=== PATIENT | female | born 1990 | race Caucasian/White ===

== ENCOUNTER 2018-05-09 13:55 | Inpatient (IN) | payer MEDICAID, SELFPAY ==
[2018-05-09 09:05] VITALS: BMI 30.4
[2018-05-09] MEDS: 0.9% Saline Lock 10 ML Syringe IV ×4 (11:12→16:50)
[2018-05-09] MEDS: Ondansetron 4 MG/2 ML Vial IM (11:13)
[2018-05-09] MEDS: Lactated Ringers 1,000 ML 50 ML IV ×4 (14:02→19:48)
[2018-05-09 14:29] LABS: Hemoglobin 11.6 g/dl (12.0-15.0); Mean Corp Hgb Conc 33.1 g/gl (32-36); Mean Corpuscular Hgb 29.9 pg (27.0-32.0); Mean Corpuscular Volume 90.2 fL (81-99); Mean Platelet Vol. 10.7 fl (6.2-12.0); Platelet Count 166 K/mm3 (150-450); RBC Distribution Width CV 13.8 % (11.6-14.6); RBC Distribution Width SD 44.4 fl (35.1-43.9); Red Blood Count 3.88 M/mm3 (4.2-5.4); White Blood Count 13.8 K/mm3 (4.4-11.0)
[2018-05-09] MEDS: Nalbuphine 10 MG/ML Ampul IV (14:30)
[2018-05-09 14:31] LABS: Scan Indicated on CBC? Y/N NO
[2018-05-09] MEDS: fentaNYL-bupivacaine (epidural) 100 ML BAG EPIDURAL ×2 (15:22→19:48)
--- NOTE | 2018-05-09 16:19 | PCM.HP.OB ---
History Date of Admission: 05/09/18 Final DIDIER: 05/15/18 Final DIDIER Source: US <20 weeks Gestational age: 39 Weeks and 1 Days History of this : This is a 27 year-old, @ 39.1 weeks presented to L&D c/o contractions- was making cervical change after observation- admitted for labor. Allergies No Known Allergies Allergy (Verified 05/09/18 09:06) Home Medications: Home Medications Vits [Prenatabs FA] 1 tablet PO DAILY 05/09/18 Smoking Status: Never smoker Alcohol: None Number of Fetus(es): 1 Heart Tracin mod celsa, + accels, no decels. TOCO Analysis: q2-4 History Past Pregnancies: Past Pregnancies Delivery Date Name GA/Weeks Outcome Route Weight Gender Labor Length Anesthesia Delivery Location Provider FOB Review of Systems Constitutional: Denies: Anorexia HEENT: Denies: Difficulty Hearing, Head Aches Gastrointestinal: Reports: Abdominal Pain - from contractions Physical Exam General: Alert, Oriented x3 Abdomen: Soft, Non Tender, Gravid Neurological: Cranial nerves II-XII grossly intact [employer]ER: Normal external genitalia Estimated gestational size: Appropriate for gestational size Presentation: Cephalic Cervix Dilation (cm): 5 Station: -2 Effacement (%): 90 Assessment/Plan This is a 27 year-old, @ 39.2 wks in active labor 1) admit to L&D 2) Monitor FHR/TOCO 3) anticipate 4) AROM performed- THICK MEC, IUPC and IFM placed 5) PN labs- GBS neg, GCT99, Rub imm, Syphilis neg, O+, HIV non reactive, HEP B neg, 6) epidural in place 7) pitocin if indicated
--- NOTE | 2018-05-09 16:24 | HP.PCM_ITS ---
History Date of Admission: 05/09/18 Final DIDIER: 05/15/18 Final DIDIER Source: US <20 weeks Gestational age: 39 Weeks and 1 Days History of this : This is a 27 year-old, @ 39.1 weeks presented to L&D c/o contractions- was making cervical change after observation- admitted for labor. Allergies No Known Allergies Allergy (Verified 05/09/18 09:06) Home Medications: Home Medications Vits [Prenatabs FA] 1 tablet PO DAILY 05/09/18 Smoking Status: Never smoker Alcohol: None Number of Fetus(es): 1 Heart Tracin mod celsa, + accels, no decels. 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
--- NOTE | 2018-05-09 16:41 | PCM.PN.BLA ---
Progress Note tachycardia noted- patient is tachycardiac s/p ephedrine x 2 doses after epidural for hypotension. will continue to monitor- fluid bolus given. Patient is afebrile.
[2018-05-09] MEDS: Oxytocin 30 units/NS 500 ml 30 UNITS/500 ML IV.SOLN IV (17:17)
--- NOTE | 2018-05-09 20:19 | PCM.PN.BLA ---
Progress Note pt seen at bedside, VE: 7-/-1, Febrile 100.7, will give Tylenol 1gram PO now. Continue to monitor. FHR 150s Mod celsa, +accels, no decels. Contractions q2min. Plan to continue pitocin. Anticipate
[2018-05-09] MEDS: Mag Hydrox/Al Hydrox/Simeth 30 ML UDC PO (20:28)
[2018-05-09] MEDS: Acetaminophen 500 MG Tablet 1000 MG PO (20:28)
[2018-05-10] MEDS: fentaNYL-bupivacaine (epidural) 100 ML BAG EPIDURAL (00:01)
--- NOTE | 2018-05-10 00:21 | NURSING ---
after secondary bag of ampicillin infused, this RN noted the vial of ampicillin was not mixed in the 100ml of normal saline. Gent now infusing. Ampicillin will infuse next.
[2018-05-10] MEDS: Mag Hydrox/Al Hydrox/Simeth 30 ML UDC PO (00:52)
[2018-05-10] MEDS: Lactated Ringers 1,000 ML 50 ML IV (01:28)
[2018-05-10] MEDS: Oxytocin 30 units/NS 500 ml 30 UNITS/500 ML IV.SOLN 334 UNITS IV (04:45)
[2018-05-10] MEDS: Methylergonovine 0.2 MG/ML Ampul IM (04:50)
--- NOTE | 2018-05-10 04:55 | PCM.OB.VAG ---
Vaginal Delivery Maternal Presentation: Active Labor Amniotic Membrane Rupture Type: Artificial Amniotic Fluid Description: Thick meconium Final DIDIER: 05/15/18 Gestational age: 39 Weeks and 2 Days Date of Procedure: 05/10/18 Pre-Operative Diagnosis: spontaneous labor, term gestation Post-Operative Diagnosis: same, live female Surgery/ Procedure Performed: Spontaneous Vaginal Delivery Type of Anesthesia: None Description of Procedure: patient pushing on and off for approx 3.5hours. on my arrival vaginal tissue extremely swollen-moving head well with pushing. Pt delivered without complications- gentle downward traction placed. infant delivered atraumatically. Delayed cord clamping performed- infant was vigorous at time of delivery- peds and respiratory present for delivery due to thick meconium. Placental cultures sent for suspected Triple I- will continue abx x 24hrs post delivery. Presentation: Vertex Placental Delivery Description: Spontaneous Placenta Disposition: Routine to Lab Cord Vessel Description: 3 Vessels Cord Entanglement: None Drain: Burger to straight drain Estimated Blood Loss: 300 Infant A gender: Female (1 minute): 8 (5 minute): 9 Episiotomy Description: None Laceration: None Medications given after delivery: IV Pitocin, IM Methergin Complications: None
--- NOTE | 2018-05-10 05:01 | PLAC_PTH ---
PATIENT: BRYCE WILSON LOC: [facility] U#:[id number] AGE/SX: 27/F ROOM: 009 RE05/09/[address]: Dr. Carla Bajwa, MDDOB: 1990 BED: 1 DIS: 05/12/2018 SPEC #: [id number] RECD: 05/10/18 06:37 STATUS: JENNI STEVE #: [id number] JANEL: 05/10/18 05:[address]: Carla Bajwa DEPT: SURGICAL PATHOLOGY RECD BY: Donnie Burgess ENTERED: 05/11/18 09:34 SP TYPE: PLACENTA OTHR DR: Dr. Ze uPgh, DO Tissues: Placenta, NOS Procedures: Surgery Specimen Level V HEADER OPERATION: Vaginal delivery PRE-OP DIAGNOSIS: Rule out chorioamnionitis TISSUE SUBMITTED: Placenta MICROSCOPIC DIAGNOSIS Placenta: Placental disc - third trimester placenta (592 gm). - Focal acute vasculitis of subamniotic blood vessels. Membranes - acute chorioamnionitis. Umbilical cord - three blood vessels and acute funisitis. KARLA:karishma 05/13/18 MICROSCOPIC DESCRIPTION Slides are reviewed. GROSS DESCRIPTION SPECIMEN: PLACENTA / CLINICAL INFORMATION: A. Weight: 3.44 kg B. Gestational Age: 39 weeks C. Sex: Female PLACENTAL WEIGHT (POST FIXATION): 592 gm PLACENTAL DIMENSIONS: 16 x 15 x 4 cm PLACENTAL SHAPE: Usual ovoid PLACENTAL WEIGHT FOR GESTATIONAL AGE: Within 10-99th percentile MEMBRANES - Present A. Insertion: Marginal B. Site of rupture from edge: 5 cm from edge of placental disc C. Color of membrane: Plaza-greenish and mucoidy, consistent with meconium staining. D. Abnormalities: None UMBILICAL CORD - Present A. Color: Plaza-welsh B. Insertion: Paracentral C. Length: 26 cm D. Diameter: 1.3 cm E. Number of vessels: Three F. Abnormalities: None PLACENTAL DISC - Present A. Color of surface: Plaza-welsh B. surface abnormalities: None C. Maternal cotyledons: Intact with minimal tears D. Attached retro placental clot: No clot E. Cut surface: Dark red and spongy F. Lesions: None G. Separate clot: Absent SECTIONS SUBMITTED: 1. Membrane roll 2. Cord, maternal end 3. Cord, end 4. Placental disc, and maternal surfaces 5. Placental disc, and maternal surfaces 6. Placental disc, and maternal surfaces SJ:karishma 05/12/18 TC:2 CPT: 70815
[2018-05-10] MEDS: Oxytocin 30 units/NS 500 ml 30 UNITS/500 ML IV.SOLN 167 UNITS IV (05:15)
[2018-05-10] MEDS: Ibuprofen 600 MG Tablet PO ×2 (07:30→13:38)
[2018-05-10 07:36] VITALS: BP 102/66; PULSE 96; RESP 16; TEMP 37.1; O2SAT 99
--- NOTE | 2018-05-10 09:22 | DCINST_ITS ---
Discharge Diet: No Restrictions Discharge Activity: Return to Normal Activity, May not drive while taking narcotic pain medications., May Shower May resume sexual activity in: 4-6 weeks Additional Activity Instructions:: Nothing in the vagina for 4-6 weeks. You may return to work/school in 6 weeks. Call your doctor if your incision/area has: Continuous Slow Oozing, Sudden Increased Bleeding, Increased Pain/ Swelling, Increased Redness, Foul Smelling Discharge Additional Instructions: If you experience any of the following, contact your healthcare provider. * Bleeding that soaks a pad every hour for 2 hours * Fever 100.4 or higher * Unrelieved incision or abdominal pain * Swelling, redness, discharge or bleeding from your incision or episiotomy site * Your incision begins to separate * Problems urinating (including inability to urinate or burning while urinating). * Visual changes * Severe headache * Flu-like symptoms * Pain or redness in one of both of your breasts * Pain, warmth, tenderness or swelling in your legs, especially the calf area * Frequent nausea and vomiting * Symptoms of depression or anxiety If you experience any of the following, call 911 or go to the nearest Emergency Room. * Chest pain * Problems breathing * Seizure activity * Partial or complete paralysis of a body part, slurred speech, weakness or drooping of the face, or a sudden inability to walk or hold your balance Allergies/Adverse Reactions: Allergies No Known Allergies Allergy (Verified 05/09/18 09:06) Medications to take at Discharge Vits [Prenatabs FA ] 1 tablet PO DAILY 05/09/18 Ibuprofen [Motrin] 600 mg PO Q6H PRN PRN #30 tablet 05/10/18 The following prescriptions were given: Ibuprofen [Motrin] 600 mg PO Q6H PRN PRN #30 tablet PRN Reason: Mild Pain (1-310) When: Call to make an appointment with your doctor in 6 weeks. If you had eleva wes Blood Pressure or 4th degree laceration you will need to be seen in 2 weeks. Primary Care Physician: Ze Pugh DO [Primary Care Provider] - Test Results: Test results from this visit will be discussed in further detail at your follow- up appointment, if applicable.
[2018-05-10] MEDS: Acetaminophen 500 MG Tablet 1000 MG PO ×2 (09:56→18:16)
[2018-05-10 11:35] VITALS: BP 100/50; PULSE 84; RESP 18; TEMP 36.4; O2SAT 97
[2018-05-10] MEDS: 0.9% Saline Lock 10 ML Syringe IV ×2 (13:46→21:37)
[2018-05-10 16:20] VITALS: BP 100/55; PULSE 70; RESP 16; TEMP 36.6; O2SAT 97
[2018-05-10 21:24] VITALS: BP 90/51; PULSE 89; RESP 16; TEMP 36.4; O2SAT 97
[2018-05-11 00:15] VITALS: BP 94/58; PULSE 78; RESP 16; TEMP 36.6; O2SAT 100
--- NOTE | 2018-05-11 00:41 | NURSING ---
This nurse spoke w/ Dr. Garcia and confirmed that pt has been afebrile since delivery and has had 24hours of antibiotics. Ok to dc omnipen and IV at this time.
[2018-05-11] MEDS: Acetaminophen 500 MG Tablet 1000 MG PO ×2 (03:36→14:18)
[2018-05-11 03:48] VITALS: BP 91/52; PULSE 75; RESP 16; TEMP 36.6; O2SAT 100
[2018-05-11] MEDS: Ibuprofen 600 MG Tablet PO ×2 (06:41→20:29)
[2018-05-11 08:25] VITALS: BP 99/47; PULSE 74; RESP 16; TEMP 36.1
[2018-05-11 14:25] VITALS: BP 95/62; PULSE 75; RESP 16; TEMP 36.6; O2SAT 97
--- NOTE | 2018-05-11 17:38 | PCM.PN.OB ---
Subjective: Ambulating and taking PO without difficulty. Voiding and passing flatus. Pain controlled. without difficulty. Denies SONI,vis chg's,CP,SOB,leg pain, increased vaginal bleeding or clots. Planning D/C home tomorrow. - Physical Exam General: Alert, Oriented x3 HEENT: Atraumatic, Normocephalic Lungs: Clear to auscultation, Normal air movement, No rhonchi, No wheeze Cardiovascular: Regular rate, Regular Rhythm, No murmurs Abdomen: Bowel Sounds Present, - - Fundus firm 2 below U Extremities: No edema Psych/Mental Status: Normal Affect, Appropriate Vital Signs Temp Pulse Resp BP Pulse Ox 97.8 F 75 16 95/62 97 05/11/18 14:25 05/11/18 14:25 05/11/18 14:25 05/11/18 14:25 05/11/18 14:25 Oxygen Delivery Method Room Air Weight: 171 lb 11.841 oz Body Mass Index (BMI) 30.4 Intake and Output for Last 24 Hours 05/09/18 05/10/18 05/11/18 23:59 23:59 23:59 Intake Total 800 / 800 1175 / 1175 Output Total 1780 / 1780 Balance 800 / 800 -605 / -605 Medical Necessity - Tobacco Use Smoking Status: Never smoker Assessment/Plan A:PPD #1 P: 1)Routine care 2)Planning D/C home tomorow 3)Pain management 4) going well
[2018-05-11 20:22] VITALS: BP 95/47; PULSE 80; RESP 16; TEMP 36.3; O2SAT 98
[2018-05-12 01:24] VITALS: BP 98/54; PULSE 97; RESP 16; TEMP 36.6; O2SAT 96
[2018-05-12] MEDS: Ibuprofen 600 MG Tablet PO (07:57)
--- NOTE | 2018-05-12 08:32 | PCM.PN.OB ---
Subjective: No complaints - Physical Exam General: Alert, Oriented x3 Abdomen: Soft, Non Tender, Non-Distended - ff mid & below umb Extremities: No Calf Tenderness Vital Signs Temp Pulse Resp BP Pulse Ox 97.8 F 97 16 98/54 L 96 05/12/18 01:24 05/12/18 01:24 05/12/18 01:24 05/12/18 01:24 05/12/18 01:24 Oxygen Delivery Method Room Air Weight: 171 lb 11.841 oz Body Mass Index (BMI) 30.4 Intake and Output for Last 24 Hours 05/10/18 05/11/18 05/12/18 23:59 23:59 23:59 Intake Total 1175 / 1175 Output Total 1780 / 1780 Balance -605 / -605 Medical Necessity - Tobacco Use Smoking Status: Never smoker Assessment/Plan PPD#2 D/c home
[2018-05-12 08:33] VITALS: BP 104/67; PULSE 68; RESP 16; TEMP 36.4; O2SAT 97
[2018-05-12] MEDS: Acetaminophen 500 MG Tablet 1000 MG PO (09:38)
[2018-05-12 09:40] VITALS: BP 104/67; PULSE 68; RESP 16; TEMP 36.4; O2SAT 97
[2018-05-13 14:05] LABS: Pathology Specimen OB SEE PATHOLOGY REPORT
--- OUTSIDE RECORDS SUMMARY | 2018-08-12 09:05 | XMS RPT_ITS ---
:1990 Author Organization OH[facility] Care Team Providers Name Role Phone HEATHER DUKES (OIL LEASE OPERATOR) Attending Unavailable HEATHER DUKES (OIL LEASE OPERATOR) Attending Unavailable MAGNO, SANG (CNM) Attending Unavailable HEATHER DUKES (OIL LEASE OPERATOR) Referring Unavailable MAGNO, SANG (CNM) Referring Unavailable CARLA ARAYA Attending Unavailable MAGNO, SANG (CNM) Referring Unavailable LIAM LITTLE Attending Unavailable CARLA ARAYA Referring Unavailable TEJADA, NGOC (CNM) Attending Unavailable MAGNO, SANG (CNM) Referring Unavailable TEJADA, NGOC (CNM) Referring Unavailable MAGNO, SANG (CNM) Attending Unavailable TEJADA, NGOC (CNM) Referring Unavailable CORNIELHEATHER BUENO (OIL LEASE OPERATOR) Attending Unavailable MAGNO, SANG (CNM) Attending Unavailable MAGNO, SANG (CNM) Referring Unavailable TEJADA, NGOC (CNM) Attending Unavailable TEJADA, NGOC (CNM) Referring Unavailable TEJADA, NGOC (CNM) Referring Unavailable SERGEY BARNETT Attending Unavailable TEJADA, NGOC (CNM) Referring Unavailable MAGNO, SANG (CNM) Attending Unavailable TEJADA, NGOC (CNM) Referring Unavailable MAGNO, SANG (CNM) Attending Unavailable MAGNO, SANG (CNM) Attending Unavailable MAGNO, SANG (CNM) Referring Unavailable LEMDAVE CARTERISSA (PT) Attending Unavailable MAGNO, SANG (CNM) Referring Unavailable MAGNO, SANG (CNM) Attending Unavailable AMGNO, SANG (CNM) Referring Unavailable MAGNO, SANG (CNM) Attending Unavailable MAGNO, SANG (CNM) Attending Unavailable MAGNO, SANG (CNM) Attending Unavailable MAGNO, SANG (CNM) Attending Unavailable MAGNO, SANG (CNM) Attending Unavailable Neyhart-Garcia, Carla Attending Unavailable Neyhart-Garcia, Carla Referring Unavailable Ze Pugh Primary Care Unavailable Neyhart-Garcia, Carla Admitting Unavailable PROBLEMS PROBLEMS DATE TYPE CONDITION / CODE ATTENDING STATUS SOURCE 02/23/2018 Active 28 weeks gestation NA Active [facility] of / [facility] Z3A.28(ICD-10) Repository 10/31/2017 Active Encounter for NA Active [facility] screening for Repository nuchal translucency / Z36.82(ICD-10) 10/31/2017 Active 12 weeks gestation MALLORY NGOC Active [facility] of / (CNM) [facility] Z3A.12(ICD-10) Repository 09/18/2017 Active Encounter for NA Active [facility] supervision of [facility] normal first Repository , first trimester / Z34.01(ICD-10) 09/18/2017 Active Unknown / NA Active [facility] UNK(Unknown) [facility] Repository PROCEDURES PROCEDURES No Procedure Records FoundRESULTS RESULTS PROGRESS Observed: 05/13/2018 Status: COMPLETED Source: [place] 10:43 AM [facility] REPOSITORY HNO ID: [id number] Author: Isadora Watson LPN Service: (none) Author Type: (none) Type: Progress Notes Filed: 05/13/2018 10:49 AM Note Text: Pt delivered via at [facility] on 05/10/[address] Garcia. See OB Outcome note. Isadora Watson LPN HOSP Observed: 05/13/2018 Status: COMPLETED Source: [place] 12:00 AM [facility] REPOSITORY Patient Update (WOOB) BRYCE RODRIGUEZ ([id number]) 1990 F Date Time Provider Department 05/13/18 CARLA ARAYA During your visit today, we recorded the following information about you: Isadora Watson ROSIE 05/13/2018 10:49 AM Signed Pt delivered via at [facility] on 05/10/[address] Garcia. See OB Outcome note. Isadora Manjinder VELEZ Allergies As of Date: 05/13/2018 (No Known Allergies) Date Reviewed: 05/04/2018 Reviewed by: Sang ([place]) Magno - Fully Assessed Prescriptions as of 05/13/2018 Sig: VITAMIN B COMPLEX CAPSULE Take 1 capsule by mouth once * VITAMIN D-3 ORAL Take by mouth. 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 Patient requested diagnostic testing [Z01.89] INVALID FOR* More... Exposure to genital herpes [Z20.2] INVALID FOR* More... Encounter for supervision of normal first pregn*INVALID FOR* Left knee pain [M25.562] INVALID FOR* Pelvic floor instability [M62.89] INVALID FOR* Encounter Status:Closed by ISADORA WATSON LPN on 05/13/18 DISCHARGE INSTRUCTION Observed: 05/10/2018 Status: F Source: [place] 9:22 AM [facility] REPOSITORY [facility] Medical Records Department [address] [place] [address] Instructions for Home/Discharge Instructions 05/10/18 0922 MR#: [id number] Acct: [id number] Name: BRYCE RODRIGUEZ TINA Rep #: [id number] : 1990 27 From: Carla Garcia MD PCP: Ze Alan DO Status: ADM IN Discharge Diet: No Restrictions Discharge Activity: Return to Normal Activity, May not drive while taking narcotic pain medications., May Shower May resume sexual activity in: 4-6 weeks Additional Activity Instructions:: Nothing in the vagina for 4-6 weeks. You may return to work/school in 6 weeks. Call your doctor if your incision/area has: Continuous Slow Oozing, Sudden Increased Bleeding, Increased Pain/ Swelling, Increased Redness, Foul Smelling Discharge Additional Instructions: If you experience any of the following, contact your healthcare provider. * Bleeding that soaks a pad every hour for 2 hours * Fever 100.4 or higher * Unrelieved incision or abdominal pain * Swelling, redness, discharge or bleeding from your incision or episiotomy site * Your incision begins to separate * Problems urinating (including inability to urinate or burning while urinating). * Visual changes * Severe headache * Flu-like symptoms * Pain or redness in one of both of your breasts * Pain, warmth, tenderness or swelling in your legs, especially the calf area * Frequent nausea and vomiting * Symptoms of depression or anxiety If you experience any of the following, call 911 or go to the nearest Emergency Room. * Chest pain * Problems breathing * Seizure activity * Partial or complete paralysis of a body part, slurred speech, weakness or drooping of the face, or a sudden inability to walk or hold your balance Allergies/Adverse Reactions: Allergies No Known Allergies Allergy (Verified 05/09/18 09:06) Medications to take at Discharge Vits [Prenatabs FA ] 1 tablet PO DAILY 05/09/18 Ibuprofen [Motrin] 600 mg PO Q6H PRN PRN #30 tablet 05/10/18 The following prescriptions were given: Ibuprofen [Motrin] 600 mg PO Q6H PRN PRN #30 tablet PRN Reason: Mild Pain (1-310) When: Call to make an appointment with your doctor in 6 weeks. If you had elevated Blood Pressure or 4th degree laceration you will need to be seen in 2 weeks. Primary Care Physician: Ze Pugh DO [Primary Care Provider] - Test Results: Test results from this visit will be discussed in further detail at your follow-up appointment, if applicable. 05/10/18921 <Electronically signed by Carla Garcia MD> Date Carla Bajwa MD CC: Ze Alan DO PLACENTA Observed: 05/10/2018 Status: F Source: [place] 5:01 AM [facility] REPOSITORY Patient: BRYCE RODRIGUEZ : 1990 () Acct Num: [id number] Phys: Aydee CASTELLANO,Carla Unit Num: [id number] Loc: WP VI732-2 Specimen: [id number] Received: 05/10/18636 Spec Type: PLACENTA TISSUES 1 TISSUES: Placenta, NOS GROSS DESCRIPTION SPECIMEN: PLACENTA / CLINICAL INFORMATION: A. Weight: 3.44 kg B. Gestational Age: 39 weeks C. Sex: Female PLACENTAL WEIGHT (POST FIXATION): 592 gm PLACENTAL DIMENSIONS: 16 x 15 x 4 cm PLACENTAL SHAPE: Usual ovoid PLACENTAL WEIGHT FOR GESTATIONAL AGE: Within 10-99th percentile MEMBRANES - Present A. Insertion: Marginal B. Site of rupture from edge: 5 cm from edge of placental disc C. Color of membrane: Plaza-greenish and mucoidy, consistent with meconium staining. D. Abnormalities: None UMBILICAL CORD - Present A. Color: Plaza-welsh B. Insertion: Paracentral C. Length: 26 cm D. Diameter: 1.3 cm E. Number of vessels: Three F. Abnormalities: None PLACENTAL DISC - Present A. Color of surface: Plaza-welsh B. surface abnormalities: None C. Maternal cotyledons: Intact with minimal tears D. Attached retro placental clot: No clot E. Cut surface: Dark red and spongy F. Lesions: None G. Separate clot: Absent SECTIONS SUBMITTED: 1. Membrane roll 2. Cord, maternal end 3. Cord, end 4. Placental disc, and maternal surfaces 5. Placental disc, and maternal surfaces 6. Placental disc, and maternal surfaces SJ:karishma 05/12/18 TC:2 CPT: 57691 HEADER OPERATION: Vaginal delivery PRE-OP DIAGNOSIS: Rule out chorioamnionitis TISSUE SUBMITTED: Placenta MICROSCOPIC DESCRIPTION Slides are reviewed. MICROSCOPIC DIAGNOSIS Placenta: Placental disc - third trimester placenta (592 gm). - Focal acute vasculitis of subamniotic blood vessels. Membranes - acute chorioamnionitis. Umbilical cord - three blood vessels and acute funisitis. SJ:karishma 05/13/18 Signed Zaid Moya MD 05/13/18 <signature on file> Performed By: #### PPLAC #### [facility] [address] [place], [address] PATHOLOGY SPECIMEN OB Collected: 05/10/2018 Status: F Source: [place] 5:01 AM [facility] REPOSITORY Order Comment: Reason for Laboratory Test Placenta for lab studies Send Specimen For (Specify): Studies @ [facility] Lab:Routine Time of Procedure: 439 Date of Procedure: 05/10/18 Reason specimen being sent to pathology (Hx/complications): r/o chorioamnionitis Type of specimen: Placenta Type of procedure performed: Other TYPE CODE TESTS RESULT OUT OF RANGE REFERENCE UNITS LAB L350.1800 SEE Normal PATH. PATHOLOGY Spec. OB REPORT Result Comment: Specimen submitted to Anatomical Pathology Department for testing. Performed By: #### L350.1800 #### [facility] [address] [place], [address] OPERATIVE REPORT Observed: 05/10/2018 Status: F Source: [place] 4:59 AM [facility] REPOSITORY [facility] Medical Records Department [address] [place] [address] Operative Report 05/10/18 0455 MR#: [id number] Acct: [id number] Name: PAMELABRYCE SINGLETON TINA Rep #: [id number] : 1990 27 From: Carla Garcia MD PCP: Ze Alan DO Status: ADM IN Y [facility] Maternal Presentation: Active Labor Amniotic Membrane Rupture Type: Artificial Amniotic Fluid Description: Thick meconium Final DIDIER: 05/15/18 Gestational age: 39 Weeks and 2 Days Date of Procedure: 05/10/18 Pre-Operative Diagnosis: spontaneous labor, term gestation Post-Operative Diagnosis: same, live female infant Surgery/ Procedure Performed: Spontaneous Vaginal Delivery Type of Anesthesia: None Description of Procedure: patient pushing on and off for approx 3.5hours. on my arrival vaginal tissue extremely swollen-moving head well with pushing. Pt delivered without complications- gentle downward traction placed. infant delivered atraumatically. Delayed cord clamping performed- infant was vigorous at time of delivery- peds and respiratory present for delivery due to thick meconium. Placental cultures sent for suspected Triple I- will continue abx x 24hrs post delivery. Presentation: Vertex Placental Delivery Description: Spontaneous Placenta Disposition: Routine to Lab Cord Vessel Description: 3 Vessels Cord Entanglement: None Drain: Burger to straight drain Estimated Blood Loss: 300 A gender: Female (1 minute): 8 (5 minute): 9 Episiotomy Description: None Laceration: None Medications given after delivery: IV Pitocin, IM Methergin Complications: None 05/10/18 0459 <Electronically signed by Carla Garcia MD> Date Carla Bajwa MD CC: Carla Bajwa MD; Ze Alan DO Signed HISTORY AND PHYSICAL Observed: 05/09/2018 Status: F Source: [place] EXAM 4:26 PM [facility] REPOSITORY [facility] Medical Records Department [address] [place] [address] History and Physical 05/09/18 1619 MR#: [id number] Acct: [id number] Name: BRYCE RODRIGUEZ Rep #: [id number] : 1990 27 From: Carla Garcia MD PCP: Ze Alan DO Status: ADM IN Location: [id number] History Date of Admission: 05/09/18 Final DIDIER: 05/15/18 Final DIDIER Source: US <20 weeks Gestational age: 39 Weeks and 1 Days History of this : This is a 27 year-old, @ 39.1 weeks presented to L AND D c/o contractions- was making cervical change after observation- admitted for labor. Allergies No Known Allergies Allergy (Verified 05/09/18 09:06) Home Medications: Home Medications Vits [Prenatabs FA] 1 tablet PO DAILY 05/09/18 Smoking Status: Never smoker Alcohol: None Number of Fetus(es): 1 Heart Tracin mod nidhi, + accels, no decels. TOCO Analysis: q2-4 History Past Pregnancies: Past Pregnancies Delivery Name GA/Weeks Outcome Route WeiInfant GeLabor LenAnesthesiDelivery Provider FOB Date ght [facility] Location Review of Systems Constitutional: Denies: Anorexia HEENT: Denies: Difficulty Hearing, Head Aches Gastrointestinal: Reports: Abdominal Pain - from contractions Physical Exam General: Alert, Oriented x3 Abdomen: Soft, Non Tender, Gravid Neurological: Cranial nerves II-XII grossly intact WINCHMAN/CRANE OPERATOR: Normal external genitalia Estimated gestational size: Appropriate for gestational size Presentation: Cephalic Cervix Dilation (cm): 5 Station: -2 Effacement (%): 90 Assessment/Plan This is a 27 year-old, @ 39.2 wks in active labor 1) admit to L AND D 2) Monitor FHR/TOCO 3) anticipate 4) AROM performed- THICK MEC, IUPC and IFM placed 5) PN labs- GBS neg, GCT99, Rub imm, Syphilis neg, O+, HIV non reactive, HEP B neg, 6) epidural in place 7) pitocin if indicated 05/09/18 6680 <Electronically signed by Carla Garcia MD> Date Carla Bajwa MD Cosigner Signature: Date (if applicable) CC: Carla Bajwa MD; Ze Alan DO Signed CBC-COMPLETE BLOOD CNT Collected: 05/09/2018 Status: F Source: [place] NO DIFF 11:48 AM [facility] REPOSITORY TYPE CODE TESTS RESULT OUT OF RANGE REFERENCE UNITS LAB L100.1000 4.4-11.0 K/mm3 High WBC 13.8 LAB L100.1200 4.2-5.4 M/mm3 Low RBC 3.88 LAB L100.1300 12.0-15.0 g/dl Low HGB 11.6 LAB L100.1400 37-47 % Low HCT 35.0 LAB L100.1500 81-99 fL Normal MCV 90.2 LAB L100.1600 27.0-32.0 pg Normal MCH 29.9 LAB L100.1700 32-36 g/gl Normal MCHC 33.1 LAB L100.1810 11.6-14.6 % Normal RDW CV 13.8 LAB L100.1820 35.1-43.9 fl High RDW SD 44.4 LAB L100.1900 150-450 K/mm3 Normal PLT 166 LAB L100.2000 6.2-12.0 fl Normal MPV 10.7 Performed By: #### L100.0500 #### [facility] [address] [place], [place], [address] TYPE AND SCREEN Collected: 05/09/2018 Status: F Source: [place] 11:48 AM [facility] REPOSITORY Order Comment: Reason for Type AND Screen/Red Cells: ROUTINE TYPE CODE TESTS RESULT OUT OF RANGE REFERENCE UNITS LAB B10.0800 O Normal BLOOD TYPE GEL POSITIVE LAB B100.4000 Normal Antibody NEGATIVE Screen Performed By: #### B101.7450 #### [facility] [address] [place], [address] PROGRESS Observed: 05/04/2018 Status: COMPLETED Source: [place] 10:25 AM [facility] REPOSITORY HNO ID: [id number] Author: Sang Kiran Service: (none) Author Type: It Support Technician Type: Progress Notes Filed: 05/04/2018 10:25 AM Note Text: CM - S: Bryce Rodriguez presents for a routine OB visit at 38w3d. She denies LOF, VB, DFM or cramping/contractions. O: See flow sheet Gen: A+O x 3, NAD Abdomen: NT x 4 quadrants, S=D Extremities: Trace non-pitting edema SVE: 180/-2, no sweep done, scant vaginal bleeding on exam A/P: 38w3d IUP. Normal . RTO 1 Weeks for follow up. Call with LOF, VB, DFM or cramping/contractions. 1. 38 weeks gestation of -[facility] teaching and Labor Precautions reviewed - URINE OB DIP B/O Sang Kiran APRN.CNM PROGRESS Observed: 04/27/2018 Status: COMPLETED Source: [place] 9:53 AM [facility] REPOSITORY HNO ID: [id number] Author: Sang Kiran Service: (none) Author Type: It Support Technician Type: Progress Notes Filed: 04/27/2018 9:54 AM Note Text: CM - S: Bryce Rodriguez presents for a routine OB visit at 37w3d. She denies LOF, VB, DFM or cramping/contractions. O: See flow sheet Gen: A+O x 3, NAD Abdomen: NT x 4 quadrants, S=D. EFW = 6# and ROSY by Selwyn'janelle Extremities: No edema in LE SVE: Deferred A/P: 37w3d IUP. Normal . RTO 1 Weeks for follow up. Call with LOF, VB, DFM or cramping/contractions. 1. 37 weeks gestation of -[facility] teaching and Labor Precautions reviewed - URINE OB DIP B/O Sang Kiran APRN.CNM GROUP B STREP PCR Collected: 04/20/2018 Status: F Source: [place] 9:30 AM [facility] REPOSITORY TYPE CODE TESTS RESULT OUT OF REFERENCE UNITS RANGE LAB GBPCRT Negative for GROUP Group B B STREP PCR Streptococcus by PCR. Performed By: #### GBPCR #### [facility] [address], [place] [address] PROGRESS Observed: 04/13/2018 Status: COMPLETED Source: [place] 10:28 AM [facility] REPOSITORY HNO ID: [id number] Author: Sang Kiran Service: (none) Author Type: It Support Technician Type: Progress Notes Filed: 04/13/2018 10:31 AM Note Text: CM - S: Bryce Rodriguez presents for a routine OB visit at 35w3d. She denies LOF, VB, DFM or cramping/contractions. Patient consents to Tdap vaccine today. O: See flow sheet Gen: A+O x 3, NAD Abdomen: NT x 4 quadrants, S=D, Vtx and ROSY by Selwyn's Extremities: No edema in LE noted A/P: 35w3d IUP. Normal . RTO 1 Weeks for follow up. Call with LOF, VB, DFM or cramping/contractions. 1. Encounter for supervision of other normal in third trimester -[facility] teaching and PTL Precautions reviewed - URINE OB DIP B/O 2. 35 weeks gestation of -Tdap given today -GBS screening n.v. - URINE OB DIP B/O Sang Kiran APRN.CNM PROGRESS Observed: 04/13/2018 Status: COMPLETED Source: [place] 10:12 AM [facility] REPOSITORY HNO ID: [id number] Author: Zakiya Mesa Ma Service: (none) Author Type: (none) Type: Progress Notes Filed: 04/13/2018 10:31 AM Note Text: Patient identified by name and date of . Bryce Rodriguez presents today for a vaccination of Tdap. Patient denies an allergy to latex: yes Patient denies a severe (life-threatening) allergy to a previous dose of Tdap, DTP, DTaP, DT or Td vaccine. Yes Patient denies history of epilepsy or neurological problems: Yes Patient is afebrile and denies being moderately or severely ill: Yes Patient denies history of Guillain-[place] Syndrome (a severe paralytic illness): Yes Tdap Adacel injection was given without incident. See immunizations for details of immunizations administered today. VIS sheet provided: Yes Provider Sang Kiran CNM was present in office at time of injection. Zakiya Mesa Ma PROGRESS Observed: 03/30/2018 Status: COMPLETED Source: [place] 9:22 AM [facility] REPOSITORY HNO ID: [id number] Author: Sang Kiran Service: (none) Author Type: It Support Technician Type: Progress Notes Filed: 03/30/2018 9:23 AM Note Text: CM - S: Bryce Rodriguez presents for a routine OB visit at 33w3d. She denies LOF, VB, DFM or cramping/contractions. She reports worsening heartburn - taking TUMS for relief and eating small frequent meals. O: See flow sheet Gen: A+O x 3, NAD Abdomen: NT x 4 quadrants, S=D, Baby ROSY and Vtx by Selwyn's Extremities: No edema in LE A/P: 33w3d IUP. Normal . RTO 2 Weeks for follow up. Call with LOF, VB, DFM or cramping/contractions. 1. 33 weeks gestation of -[facility] teaching and PTL precautions reviewed -Tdap recommended - patient unsure. Information sheet given. Patient will consider receiving Tdap at next visit - URINE OB DIP B/O Sang Kiran APRN.CNM PROGRESS Observed: 03/10/2018 Status: COMPLETED Source: [place] 10:26 AM [facility] REPOSITORY HNO ID: [id number] Author: Sang Kiran Service: (none) Author Type: It Support Technician Type: Progress Notes Filed: 03/10/2018 10:26 AM Note Text: CM - S: Bryce Rodriguez presents for a routine OB visit at 30w4d. She denies LOF, VB, DFM or cramping/contractions. Seeing chiropractor for her pelvic and hip pain, reports that she has started swimming for low-impact exercise. O: See flow sheet Gen: A+O x 3, NAD Abdomen: NT x 4 quadrants, S=D Extremities: No edema in LE A/P: 30w4d IUP. Normal . RTO 2 Weeks for follow up. Call with LOF, VB, DFM or cramping/contractions. 1. Encounter for supervision of normal first in third trimester -[facility] teaching and PTL precautions reviewed -Flu vaccine declined - URINE OB DIP B/O 2. 30 weeks gestation of -CBE and Hospital Tour discussed again - resources provided. Encourage CBE class. -Peds discussed. - URINE OB DIP B/O Sang Kiran APRN.CNM PROGRESS Observed: 03/04/2018 Status: COMPLETED Source: [place] 10:20 AM [facility] REPOSITORY HNO ID: [id number] Author: Janet (Pt) Marlo Service: (none) Author Type: Physical Therapist Type: Progress Notes Filed: 03/04/2018 12:02 PM Note Text: Episode Visit Count: 1 Therapist That Will Oversee The Plan Of Care: Janet Sellers Start of Care Date: 03/04/18 Onset Date: 01/28/18 Plan of Care Certification Date: 03/04/18 Patient Identified by Name and Date of : Yes REHABILITATION AND SPORTS THERAPY PHYSICAL THERAPY EVALUATION PLAN OF CARE: Assessment: Bryce Rodriguez presents with the diagnosis of pelvic instability and L knee pain. C/c low back/SI region, L hip and knee pain. She presents with impairments of asymmetrical pelvic alignment, decreased flexibility and core and LE weakness. She may benefit from skilled therapy services to improve core, pelvic and LE strength and stability, flexibility of hamstrings and symmetrical pelvic alignment. Prognosis: Good Good due to: good overall health status;within-session changes at evaluation;good support system/ coping skills Goals for Episode of Care: created on 03/04/18 through 05/04/18 [place] in home exercise program. Patient will decrease pain rating by 2 points to meet minimal clinical important difference for numeric pain rating scale. Patient will increase strength of core trunk and LE musculature to 4+ to 5/5 to allow for return to prior functional status, normalized gait mechanics and pelvic stability. Patient will increase flexibility of hamstrings to 60 degrees to improve ability to maintain proper posture, restore normal mechanics and decrease pain. Perform undisturbed sleep, standing, walking, stair negotiation and eventual return to exercise activities with decreased report of symptoms/pain in 4-8 weeks. Demonstrate improvement on functional score: Patient will increase his/her score on the Lower Extremity Functional Scale by at least 9 points to indicate a Minimal Clinical Important Difference. Improve postural awareness. Normal gait. Reciprocal stair negotiation. Planned Interventions, Frequency, and Duration: Current Frequency: 1x/week Duration: 8 weeks Total Number of Visits Planned: 8 Planned Treatment Interventions: Therapeutic exercise;Neuromuscular re-education;Patient/Family/Caregiver Education PLAN FOR NEXT VISIT: Assess symptom response to initial treatment and HEP. Review HEp to insure correct performance. Progress pelvic stabilization exercises (and HEP) appropriately. Patient demonstrates good understanding of plan of care and treatment. The above goals and plan of care were discussed and agreed upon by patient/family. SUBJECTIVE: Bryce Rodriguez is a 27 year old female seen today for Pt reports sudden, insidious onset of B low back, L anterior hip and L knee pain. She denies incident or injury related to onset. Pt is at 29weeks 5days gestation. She is currently being seen by chiropractor 3 x a week for adjustments. She states she is no longer exercising as she used to and has pain when ambulating (by the end of the day it will be too painful to walk) and with stairs. She notes having custom orthotics in the past (14 years ago in high school) and needs a new pair. Pt states she previously lifted weights daily, walking and biking and is not doing any of that d/t this pain. Patient Goals: to get a pair of orthotics made again. Functional Limitations: standing;walking;walking in the community;stair negotiation;sleeping (exercise) Prior Level of Function: Independent without limitations Intake Information: Prescription present Previous Treatment: Chiropractor?;Ice? Pain Score: 8/10 (worse with movement) Pain Location: Low Back/Lumbar Spine - Right;Low Back/Lumbar Spine - Left;Groin - Left;Knee - Left Description: Aching;Dull;Sharp (sharp with movements) Frequency: Continuous OBJECTIVE MEASURES WITH LEVEL OF FUNCTION: Posture / Alignment Posture: Decreased lumbar lordosis;Comments Posture comment: In standing L PSIS is inferior to R Lumbo - Pelvic Alignment: In supine L ASIS is superior to R LE Observations: L LE appears shorter in length and this corrects when transitions to long sitting. Knee Observations L Knee Palpation Tenderness: Other Comments: sub patellar LE AROM R Hip Internal Rotation: (WNL) R Hip External Rotation: (WNL) R Knee Extension: 0 Degrees R Knee Flexion: 130 Degrees L Hip Internal Rotation: (WNL, pulling low back) L Hip External Rotation: (WNL, pulling low back) L Knee Extension: 0 Degrees L Knee Flexion: 130 Degrees LE Flexibility Flexibility: Straight Leg Raise R SLR Flexibility: 45 deg, pulling in lumbar region L SLR Flexibility: 45 deg, pulling in lumbar region LE Strength Trunk Strength: 4/5 R LE Strength: 4/5 L LE Strength: 4/5 Gait Gait Observation: Pt ambulates independently with no assistive device. Steps are soemwhat guarded with decreased step length and heel strike bilaterally. Post Treatment Pain Post Treatment Pain Score: No Change Education: Education Learning Preferences: Demonstration;Explanation Barriers: None Learning/educational needs: Home exercise program;Plan of Care;Posture Education Provided: Yes, see treatment interventions for education provided Education Provided To: Patient Education Mode/Type: Demonstration;Explanation/Discussion;Literature/Printed Materials;Performance Response to Education/Teach Back: States/Identifies;Return Demonstration TREATMENT: Evaluation Therapeutic Exercise: 1: *Seated L hip flex with R hip ext isometric 5 sec holds 1 x 10 reps 2: *seated B hip adduction isometrics (pillow squeezes) 5 sec holds 1 x 10 reps 3: *seated B hip abductions 5 sec holds 1 x 10 reps 4: *seated/standing gluteal sets 5 sec holds 1 x 10 reps 5: *seated iso abs 5 sec holds 1 x 10 reps Skilled Intervention: Patient was educated in proper exercise technique and purpose for exercises. Skilled judgment was provided in selection of appropriate interventions. Provided written instruction for home exercise program to facilitate proper performance and compliance. Correct performance of therapeutic exercises was facilitated with verbal and visual cuing. Patient education as noted. Self-Alf Management: 1: Educated pt regarding effects of on the musculoskeletal system in relation to her diagnosis and evaluation findings. Pt verbalized good understanding and all questions were answered. 2: Educated pt in regards to positioning for sleep and comfort with use of pillows as needed for support. Skilled Intervention: Skilled judgment in the selection of proper modification for activity of daily living/home management based on clinical presentation, deficits, and needs. Reviewed patient specific diagnosis in relation to activities of daily living/home management. Billing: [facility]: Evaluation - Low Complexity (48149) Therapeutic Exercise (84662): 1:1 time: 25 minutes (2 units: 23-37 mins) Educ Home Mgmt (66353): 1:1 time: 15 minutes (1 unit: 8-22 mins) Total time: 55 minutes Janet Sellers PT CNTHERAPY Observed: 03/04/2018 Status: COMPLETED Source: [place] 10:15 AM [facility] REPOSITORY OT/PT/Speech Visit (PTWS) BRYCE RODRIGUEZ ([id number]) 1990 F Date Time Provider Department 03/04/18 10:15 AM JANET SELLERS (PT) PTWS Date Time Provider Department Center 03/04/2018 10:15 AM [id number] SELLERS (PT) PTWS [facility] Reason for Visit: PT Eval [747] Primary Visit Diagnosis:Left knee pain, unspecified chronicity [M25.562] Other Visit Diagnosis:Pelvic floor instability [M62.89] Allergies As of Date: 03/04/2018 (No Known Allergies) Date Reviewed: 02/23/2018 Reviewed by: Sang Lua) Magno - Fully Assessed Prescriptions as of 03/04/2018 Sig: VITAMIN D-3 ORAL Take by mouth. VIT 87-IRON CARB,ASP* Take 1 capsule by mouth once * VITAMIN B COMPLEX CAPSULE Take 1 capsule by mouth once * Progress Notes: Janet Sellers, PT 03/04/2018 12:02 PM Signed Episode Visit Count: 1 Therapist That Will Oversee The Plan Of Care: Janet Sellers Start of Care Date: 03/04/18 Onset Date: 01/28/18 Plan of Care Certification Date: 03/04/18 Patient Identified by Name and Date of : Yes [facility]ABIL[facility] SPORTS THERAPY PHYSICAL THERAPY EVALUATION PLAN OF CARE: Assessment: Bryce Rodriguez presents with the diagnosis of pelvic instability and L knee pain. C/c low back/SI region, L hip and knee pain. She presents with impairments of asymmetrical pelvic alignment, decreased flexibility and core and LE weakness. She may benefit from skilled therapy services to improve core, pelvic and LE strength and stability, flexibility of hamstrings and symmetrical pelvic alignment. Prognosis: Good Good due to: good overall health status;within-session changes at evaluation;good support system/ coping skills Goals for Episode of Care: created on 03/04/18 through 05/04/18 [place] in home exercise program. Patient will decrease pain rating by 2 points to meet minimal clinical important difference for numeric pain rating scale. Patient will increase strength of core trunk and LE musculature to 4+ to 5/5 to allow for return to prior functional status, normalized gait mechanics and pelvic stability. Patient will increase flexibility of hamstrings to 60 degrees to improve ability to maintain proper posture, restore normal mechanics and decrease pain. Perform undisturbed sleep, standing, walking, stair negotiation and eventual return to exercise activities with decreased report of symptoms/pain in 4-8 weeks. Demonstrate improvement on functional score: Patient will increase his/her score on the Lower Extremity Functional Scale by at least 9 points to indicate a Minimal Clinical Important Difference. Improve postural awareness. Normal gait. Reciprocal stair negotiation. Planned Interventions, Frequency, and Duration: Current Frequency: 1x/week Duration: 8 weeks Total Number of Visits Planned: 8 Planned Treatment Interventions: Therapeutic exercise;Neuromuscular re-education;Patient/Family/Caregiver Education PLAN FOR NEXT VISIT: Assess symptom response to initial treatment and HEP. Review HEp to insure correct performance. Progress pelvic stabilization exercises (and HEP) appropriately. Patient demonstrates good understanding of plan of care and treatment. The above goals and plan of care were discussed and agreed upon by patient/family. SUBJECTIVE: Bryce Rodriguez is a 27 year old female seen today for Pt reports sudden, insidious onset of B low back, L anterior hip and L knee pain. She denies incident or injury related to onset. Pt is at 29weeks 5days gestation. She is currently being seen by chiropractor 3 x a week for adjustments. She states she is no longer exercising as she used to and has pain when ambulating (by the end of the day it will be too painful to walk) and with stairs. She notes having custom orthotics in the past (14 years ago in high school) and needs a new pair. Pt states she previously lifted weights daily, walking and biking and is not doing any of that d/t this pain. Patient Goals: to get a pair of orthotics made again. Functional Limitations: standing;walking;walking in the community;stair negotiation;sleeping (exercise) Prior Level of Function: Independent without limitations Intake Information: Prescription present Previous Treatment: Chiropractor?;Ice? Pain Score: 8/10 (worse with movement) Pain Location: Low Back/Lumbar Spine - Right;Low Back/Lumbar Spine - Left;Groin - Left;Knee - Left Description: Aching;Dull;Sharp (sharp with movements) Frequency: Continuous OBJECTIVE MEASURES WITH LEVEL OF FUNCTION: Posture / Alignment Posture: Decreased lumbar lordosis;Comments Posture comment: In standing L PSIS is inferior to R Lumbo - Pelvic Alignment: In supine L ASIS is superior to R LE Observations: L LE appears shorter in length and this corrects when transitions to long sitting. Knee Observations L Knee Palpation Tenderness: Other Comments: sub patellar LE AROM R Hip Internal Rotation: (WNL) R Hip External Rotation: (WNL) R Knee Extension: 0 Degrees R Knee Flexion: 130 Degrees L Hip Internal Rotation: (WNL, pulling low back) L Hip External Rotation: (WNL, pulling low back) L Knee Extension: 0 Degrees L Knee Flexion: 130 Degrees LE Flexibility Flexibility: Straight Leg Raise R SLR Flexibility: 45 deg, pulling in lumbar region L SLR Flexibility: 45 deg, pulling in lumbar region LE Strength Trunk Strength: 4/5 R LE Strength: 4/5 L LE Strength: 4/5 Gait Gait Observation: Pt ambulates independently with no assistive device. Steps are soemwhat guarded with decreased step length and heel strike bilaterally. Post Treatment Pain Post Treatment Pain Score: No Change Education: Education Learning Preferences: Demonstration;Explanation Barriers: None Learning/educational needs: Home exercise program;Plan of Care;Posture Education Provided: Yes, see treatment interventions for education provided Education Provided To: Patient Education Mode/Type: Demonstration;Explanation/Discussion;Literature/Printed Materials;Performance Response to Education/Teach Back: States/Identifies;Return Demonstration TREATMENT: Evaluation Therapeutic Exercise: 1: *Seated L hip flex with R hip ext isometric 5 sec holds 1 x 10 reps 2: *seated B hip adduction isometrics (pillow squeezes) 5 sec holds 1 x 10 reps 3: *seated B hip abductions 5 sec holds 1 x 10 reps 4: *seated/standing gluteal sets 5 sec holds 1 x 10 reps 5: *seated iso abs 5 sec holds 1 x 10 reps Skilled Intervention: Patient was educated in proper exercise technique and purpose for exercises. Skilled judgment was provided in selection of appropriate interventions. Provided written instruction for home exercise program to facilitate proper performance and compliance. Correct performance of therapeutic exercises was facilitated with verbal and visual cuing. Patient education as noted. Self-Alf Management: 1: Educated pt regarding effects of on the musculoskeletal system in relation to her diagnosis and evaluation findings. Pt verbalized good understanding and all questions were answered. 2: Educated pt in regards to positioning for sleep and comfort with use of pillows as needed for support. Skilled Intervention: Skilled judgment in the selection of proper modification for activity of daily living/home management based on clinical presentation, deficits, and needs. Reviewed patient specific diagnosis in relation to activities of daily living/home management. Billing: [facility]: Evaluation - Low Complexity (01049) Therapeutic Exercise (64357): 1:1 time: 25 minutes (2 units: 23-37 mins) Educ Home Mgmt (26246): 1:1 time: 15 minutes (1 unit: 8-22 mins) Total time: 55 minutes Janet Sellers PT Additional Progress Notes VISIT DATE: 09/18/2017 GA: 5w Juliette Fernandez RN 09/18/2017 7:59 AM Signed SEQUENTIAL SCREENINGS The [facility] offers sequential screenings for women who are interested in screenings for chromosomal abnormalities and certain defects during a . The sequential screen combines ultrasound and blood tests to determine the risk of chromosomal abnormalities, including Down's Syndrome (Trisomy 21) and Trisomy 18, as well as open neural tube defects including spina bifida. Ultrasound examination is performed between 11 weeks and 13 weeks gestational age. Blood tests are drawn after the ultrasound and again later in the between 15 and 21 weeks gestational age. Please let your physician know if you are interested in this testing. It will require an appointment with our vocational rehabilitation technician. This is not an ultrasound performed by a physician in our office during a routine visit. SIGNS AND SYMPTOMS OF LABOR 1. Contractions every 10 minutes or more often 2. Clear, pink, or brownish fluid (water) leaking from vagina 3. Feeling that baby is pushing down, pressure 4. Low, dull backache 5. Cramps that feel like a period 6. Cramps with or without diarrhea If you notice any of the above symptoms, contact our office at [phone] and ask to speak with a nurse. After hours, you can call doctors registry at [phone] OR call [facility] at [phone] and ask to have the doctor vocational guidance counselor paged. If you consider this an emergency, dial 9-1-1 or go to your nearest emergency department. Cord-Blood Banking Up until recently, the umbilical cord--along with the blood that remained in it after a baby was born and the cord cut--was simply discarded by the hospital. Then, in the late , researchers discovered that cord blood possessed unusual properties that made it useful in the treatment of patients with some cancers and other illnesses. While the actual process of collecting cord blood is straightforward, many parents are not even aware that this option now exists, much less familiar with all the issues involved. The case for saving your baby's cord blood The blood running back and forth between your baby and the placenta is full of immature cells called stem cells. Unlike embryonic stem cells, which have the ability to develop into any type of body cell, cord-blood stem cells already are locked into a certain, vital function: making all the different components of the blood, such as platelets, white blood cells, and red blood cells-serving, in effect, like bone marrow. When transfused into a patient whose own blood cells have faulty genetic coding or have been destroyed by chemotherapy or other cancer treatments, the cord-blood cells can implant themselves in the bone marrow and generate legions of new, healthy cells. These days, cord-blood transplants most commonly are used in cancer patients when a donor can't be found for a bone-marrow transplant. The treatment is particularly effective in young patients-the [facility] Cord Blood Bank reports a 70 percent success rate in children, but only 20 to 40 percent in adults. Researchers envision improving those odds and see many future applications as well, such as curing sickle cell disease and other blood-related genetic illnesses. So there is a possibility that your child, or someone else, may need these super-healthy and versatile cells one day. The drawbacks Aside from not knowing about this medical option, the main reason most people do not save their baby's stem cells is cost. In a private blood bank, the initial costs run from $275 to $1,500. Most also charge a yearly storage fee of $50 to $95. The advantage of using a private bank is that your sample is saved for only you to use. An alternative to private banking Public cord-blood singleton are an alternative. These cost no money to use, but your sample is not specifically saved for you. Another person with a more immediate need may use it. If the time should come that you need stem cells, yours may still be available, or you may use donations from other people without charge. You also can direct your sample to go to a relative with an immediate need if the blood type matches. Anyone else needing to use stem cells from a public bank who has not been a donor must pay for it, sometimes tens of thousands of dollars. Will my family benefit from saving stem cells? Right now, situations in which stem cells would be helpful are quite rare. As mentioned earlier, stem-cell transplants are most commonly used for rare genetic conditions and for some types of cancer, including leukemia and lymphoma. And even with these present uses, many questions remain. In cancer treatment, for example, some researchers are concerned about the wisdom of transplanting back into the child the same cells that already showed a propensity to become malignant. Doctors also aren't sure if the number of cells taken at the time of would be enough to treat a full-grown 16-year-old. It is also not completely clear how active the cells would be after years of being stored. The treatment is so new and rare, we just don't have the data yet to resolve these important issues. What do the experts say? The [employer] encourages philanthropic blood banking in public singleton, but only for families with a current or potential need. Blood-bank proponents encourage any kind of banking, pointing out that research is getting closer and closer to many diverse, live-saving applications. How do I decide? Each family must weigh the pros and cons for themselves. Some families say that any cost is worth their peace of mind. Others say that in the face of uncertainty about the effectiveness of the treatment, they will use their resources elsewhere. Some choose the middle ground of donating publicly, knowing that their sample might benefit another family, if not themselves. For more information, ask your doctor or nurse, and be sure to check out our article on the technical aspects of cord-blood banking. Technical Aspects of Cord-Blood Banking If you are interested in storing your baby's umbilical-cord blood because of its possible use in emerging medical treatments, you must make arrangements with a blood bank before your child is born. The collection procedure is quite simple: After delivery of the baby, the umbilical cord is clamped and cut in the usual way. The blood that remains in the umbilical-cord vessels is then collected in sterile containers. The blood may be removed from the cord with a large needle or allowed to flow freely, depending on the company's collection system. The containers may look like large test tubes or like the plastic bags used in a blood bank. It does not cause the mother or the baby any pain to collect the blood, and no blood is taken that the baby needs at the moment. The nurse, blending plant operator, or physician will then label the samples, check them over with you, and package them for a special pickup arranged with a commercial carrier. When the blood arrives at the blood-bank facility, it is processed and the parents are notified. It is then kept in an advanced storage system for years. How do I know that my sample is safe? Power outages and bankruptcies potentially could threaten any organization, but so far none have been reported. It is to be hoped that the scientists in these singleton would arrange for safe transfer to another facility if the need arose. YOU MUST MAKE ARRANGEMENTS AHEAD OF TIME! Public cord-blood singleton--DONATION: [employer] [phone] [facility] Placental Blood Program, [facility] Umbilical Cord Blood [facility], Private cord-blood singleton--SAVING FOR YOUR OWN USE: [employer], (I think this is the least expensive) [employer] [phone] [employer], ([phone]) [employer] [place] [facility] Blood [facility], [phone], [phone] [place] [facility], Cord Blood Registry, (810) [facility], An Internet search may provide you with additional listings. Juliette Fernandez RN 09/18/2017 5:25 PM Signed #: 1, Date: None, Sex: None, Weight: None, GA: None, Delivery: None, Apgar1: None, Apgar5: None, Living: None, Comments: None VISIT DATE: 09/18/2017 GA: 5w Sang Kiran APRN.CNM 09/18/2017 9:40 AM Signed INITIAL OB ASSESSMENT OB Provider: Zakiya Mesa Ma HPI: Bryce Rodriguez is a 27 year old female here to establish Obstetrical Care. Patient's last menstrual period was 08/03/2017. from OB Dating Form. Cycle length: 28-35 days Complaints: None was planned. Obstetric History T0 L0 SAB0 TAB0 Ectopic0 Multiple0 Live Births0 Prior : never History of 4th degree laceration: No Patient's Risk Screening for delivery: History of abnormal pap: Yes Prior treatment for cervical dysplasia: none. 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 Current Outpatient Prescriptions on File Prior to Visit: metFORMIN ER (GLUCOPHAGE XR) 500 mg 24 hr tablet Take 1 tablet by mouth daily with breakfast. FOLIC ACID ORAL Take by mouth. multivitamin (MULTIPLE VITAMINS) tablet Take 1 tablet by mouth once daily. ASHWAG[place]HA ROOT EXTRACT,BULK, [facility] [place]-iron [id number] (ONE DAILY ) 28 mg iron- 800 mcg cmpk Take 1 tablet by mouth once daily. No current facility-administered medications on file prior to visit. Review of Systems: GENERAL: Negative for: Fever or Chills HEENT: Negative for: Headache, Impaired Vision, Ringing in Ears, Nosebleeds NECK: Negative for: Swelling, Pain, Stiffness RESPIRATORY: Negative for: Cough, Shortness of breath, Wheezing GASTROINTESTINAL: Negative for: Heartburn, Constipation, Diarrhea, Blood in stool, Vomiting MUSCULOSKELETAL: Negative for: Muscle or joint pain, stiffness, Joint swelling NEUROLOGIC/PSYCHIATRIC: Negative for: Weakness, Paralysis, Numbness, Tingling, Tremor, Anxiety, Depression, Memory loss SKIN: Negative for: Rash, Itching GENITOURINARY: Negative for: vaginal itching, vaginal discharge, hematuria or dysuria PHYSICAL EXAM: BP 118/74 Ht 5' 3.386 (1.61m) Wt 163 lb 12.8 oz (74.3kg) LMP 08/03/2017 BMI 28.66 kg/(m2). GENERAL: pleasant female in no apparent distress DERMATOLOGY: Normal, without lesions, non-icteric and non-hirsute NECK: Supple, full range of motion, no adenopathy and thyroid normal CHEST: Normal inspiratory effort BREAST: soft, non-tender, symmetric, no dominant mass, normal nipple-areolar complex, no lymphadenopathy and no nipple discharge ABDOMEN: soft, non-tender and no masses NEURO: alert and oriented x3,exam grossly non-focal PELVIS: External genitalia normal without lesions. Perineal body intact. No vaginal or cervical lesions. Scant bleeding with exam. Cervix closed. Uterus 6 week size. No adnexal masses or tenderness. Clinical Pelvimetry: Pelvimetry clinically assessed as adequate Limited OB ultrasound exam: single intrauterine , + yolk sac and pole, ? FHT ASSESSMENT: 27 year old at 6.4 wks gestational age by LMP PLAN: 1) Patient oriented to practice. Discussed nutrition, folic acid supplementation, dietary guidelines, exercise, smoking, alcohol, caffeine, and drug use. Discussed routine OB labs including STD/HIV. CF carrier screening discussed and accepted. 2) RTC in 2 weeks for visit with MD for CHRIS + follow-up ultrasound to confirm dating 3) Pap smear collected today Follow up in 2 weeks or sooner prn. Sang Kiran APRN.[place] [employer] Bryce Rodriguez was given the 4's screening tool. Bryce answered as follows: OB Opioid Screening - Last Recorded (since 12/22/2016) Did any of your parents have a problem with alcohol or other drug use? No Does your partner have a problem with alcohol or other drug use? No In the past, have you had difficulties in your life because of alcohol or other drugs, including prescription medications? No In the past month have you drunk any alcohol or used other drugs? No Are you taking medication for pain during the either prescribed or not? No Based on the screen and further questions, she is considered at Low risk due to:No past or current use. Positive reinforcement of current behavior. Plan to rescreen early third trimester. Sang Kiran APRN.ELMIRA Hernandez Pssvetlana 09/26/2017 9:52 AM Signed pap logged, letter sent. Isadora Hernandez Psr VISIT DATE: 09/18/2017 GA: 5w VISIT DATE: 09/30/2017 GA: 7w Myrna Castellano Ma 09/30/2017 3:58 PM Signed SEQUENTIAL SCREENINGS The [facility] offers sequential screenings for women who are interested in screenings for chromosomal abnormalities and certain defects during a . The sequential screen combines ultrasound and blood tests to determine the risk of chromosomal abnormalities, including Down's Syndrome (Trisomy 21) and Trisomy 18, as well as open neural tube defects including spina bifida. Ultrasound examination is performed between 11 weeks and 13 weeks gestational age. Blood tests are drawn after the ultrasound and again later in the between 15 and 21 weeks gestational age. Please let your physician know if you are interested in this testing. It will require an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 History of abnormal pap: Yes Prior treatment for cervical dysplasia: none. 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 Current Outpatient Prescriptions on File Prior to Visit: metFORMIN ER (GLUCOPHAGE XR) 500 mg 24 hr tablet Take 1 tablet by mouth daily with breakfast. FOLIC ACID ORAL Take by mouth. multivitamin (MULTIPLE VITAMINS) tablet Take 1 tablet by mouth once daily. ASHMARKUSDHA ROOT EXTRACT,BULK, [facility] [place]-iron [id number] (ONE DAILY ) 28 mg iron- 800 mcg cmpk Take 1 tablet by mouth once daily. No current facility-administered medications on file prior to visit. Review of Systems: GENERAL: Negative for: Fever or Chills HEENT: Negative for: Headache, Impaired Vision, Ringing in Ears, Nosebleeds NECK: Negative for: Swelling, Pain, Stiffness RESPIRATORY: Negative for: Cough, Shortness of breath, Wheezing GASTROINTESTINAL: Negative for: Heartburn, Constipation, Diarrhea, Blood in stool, Vomiting MUSCULOSKELETAL: Negative for: Muscle or joint pain, stiffness, Joint swelling NEUROLOGIC/PSYCHIATRIC: Negative for: Weakness, Paralysis, Numbness, Tingling, Tremor, Anxiety, Depression, Memory loss SKIN: Negative for: Rash, Itching GENITOURINARY: Negative for: vaginal itching, vaginal discharge, hematuria or dysuria PHYSICAL EXAM: BP 118/74 Ht 5' 3.386 (1.61m) Wt 163 lb 12.8 oz (74.3kg) LMP 08/03/2017 BMI 28.66 kg/(m2). GENERAL: pleasant female in no apparent distress DERMATOLOGY: Normal, without lesions, non-icteric and non-hirsute NECK: Supple, full range of motion, no adenopathy and thyroid normal CHEST: Normal inspiratory effort BREAST: soft, non-tender, symmetric, no dominant mass, normal nipple-areolar complex, no lymphadenopathy and no nipple discharge ABDOMEN: soft, non-tender and no masses NEURO: alert and oriented x3,exam grossly non-focal PELVIS: External genitalia normal without lesions. Perineal body intact. No vaginal or cervical lesions. Scant bleeding with exam. Cervix closed. Uterus 6 week size. No adnexal masses or tenderness. Clinical Pelvimetry: Pelvimetry clinically assessed as adequate Limited OB ultrasound exam: single intrauterine , + yolk sac and pole, ? FHT ASSESSMENT: 27 year old at 6.4 wks gestational age by LMP PLAN: 1) Patient oriented to practice. Discussed nutrition, folic acid supplementation, dietary guidelines, exercise, smoking, alcohol, caffeine, and drug use. Discussed routine OB labs including STD/HIV. CF carrier screening discussed and accepted. 2) RTC in 2 weeks for visit with MD for CHRIS + follow-up ultrasound to confirm dating 3) Pap smear collected today Follow up in 2 weeks or sooner prn. Sang Kiran APRN.CNM SBIRT Bryce Rodriguez was given the 4's screening tool. Bryce answered as follows: OB Opioid Screening - Last Recorded (since 12/22/2016) Did any of your parents have a problem with alcohol or other drug use? No Does your partner have a problem with alcohol or other drug use? No In the past, have you had difficulties in your life because of alcohol or other drugs, including prescription medications? No In the past month have you drunk any alcohol or used other drugs? No Are you taking medication for pain during the either prescribed or not? No Based on the screen and further questions, she is considered at Low risk due to:No past or current use. Positive reinforcement of current behavior. Plan to rescreen early third trimester. Sang Kiran APRN.CNM CNNURSE Observed: 09/18/2017 Status: COMPLETED Source: [place] 7:30 AM [facility] Nurse Visit (WOOB) BRYCE RODRIGUEZ ([id number]) 1990 F Date Time Provider Department 09/18/17 7:30 AM NURSE PNOB [facility] WSTR WOOB During your visit today, we recorded the following information about you: Last Period 08/03/17 Juliette Fernandez RN 09/18/2017 7:59 AM Signed SEQUENTIAL SCREENINGS The [facility] offers sequential screenings for women who are interested in screenings for chromosomal abnormalities and certain defects during a . The sequential screen combines ultrasound and blood tests to determine the risk of chromosomal abnormalities, including Down's Syndrome (Trisomy 21) and Trisomy 18, as well as open neural tube defects including spina bifida. Ultrasound examination is performed between 11 weeks and 13 weeks gestational age. Blood tests are drawn after the ultrasound and again later in the between 15 and 21 weeks gestational age. Please let your physician know if you are interested in this testing. It will require an appointment with our vocational rehabilitation technician. This is not an ultrasound performed by a physician in our office during a routine visit. SIGNS AND SYMPTOMS OF LABOR 1. Contractions every 10 minutes or more often 2. Clear, pink, or brownish fluid (water) leaking from vagina 3. Feeling that baby is pushing down, pressure 4. Low, dull backache 5. Cramps that feel like a period 6. Cramps with or without diarrhea If you notice any of the above symptoms, contact our office at [phone] and ask to speak with a nurse. After hours, you can call doctors registry at [phone] OR call [facility] at [phone] and ask to have the doctor vocational guidance counselor paged. If you consider this an emergency, dial 9--1 or go to your nearest emergency department. Cord-Blood Banking Up until recently, the umbilical cord--along with the blood that remained in it after a baby was born and the cord cut--was simply discarded by the hospital. Then, in the late , researchers discovered that cord blood possessed unusual properties that made it useful in the treatment of patients with some cancers and other illnesses. While the actual process of collecting cord blood is straightforward, many parents are not even aware that this option now exists, much less familiar with all the issues involved. The case for saving your baby's cord blood The blood running back and forth between your baby and the placenta is full of immature cells called stem cells. Unlike embryonic stem cells, which have the ability to develop into any type of body cell, cord-blood stem cells already are locked into a certain, vital function: making all the different components of the blood, such as platelets, white blood cells, and red blood cells-serving, in effect, like bone marrow. When transfused into a patient whose own blood cells have faulty genetic coding or have been destroyed by chemotherapy or other cancer treatments, the cord-blood cells can implant themselves in the bone marrow and generate legions of new, healthy cells. These days, cord-blood transplants most commonly are used in cancer patients when a donor can't be found for a bone-marrow transplant. The treatment is particularly effective in young patients-the [facility] Cord Blood Bank reports a 70 percent success rate in children, but only 20 to 40 percent in adults. Researchers envision improving those odds and see many future applications as well, such as curing sickle cell disease and other blood-related genetic illnesses. So there is a possibility that your child, or someone else, may need these super-healthy and versatile cells one day. The drawbacks Aside from not knowing about this medical option, the main reason most people do not save their baby's stem cells is cost. In a private blood bank, the initial costs run from $275 to $1,500. Most also charge a yearly storage fee of $50 to $95. The advantage of using a private bank is that your sample is saved for only you to use. An alternative to private banking Public cord-blood singleton are an alternative. These cost no money to use, but your sample is not specifically saved for you. Another person with a more immediate need may use it. If the time should come that you need stem cells, yours may still be available, or you may use donations from other people without charge. You also can direct your sample to go to a relative with an immediate need if the blood type matches. Anyone else needing to use stem cells from a public bank who has not been a donor must pay for it, sometimes tens of thousands of dollars. Will my family benefit from saving stem cells? Right now, situations in which stem cells would be helpful are quite rare. As mentioned earlier, stem-cell transplants are most commonly used for rare genetic conditions and for some types of cancer, including leukemia and lymphoma. And even with these present uses, many questions remain. In cancer treatment, for example, some researchers are concerned about the wisdom of transplanting back into the child the same cells that already showed a propensity to become malignant. Doctors also aren't sure if the number of cells taken at the time of would be enough to treat a full-grown 16-year-old. It is also not completely clear how active the cells would be after years of being stored. The treatment is so new and rare, we just don't have the data yet to resolve these important issues. What do the experts say? The [employer] encourages philanthropic blood banking in public singleton, but only for families with a current or potential need. Blood-bank proponents encourage any kind of banking, pointing out that research is getting closer and closer to many diverse, live-saving applications. How do I decide? Each family must weigh the pros and cons for themselves. Some families say that any cost is worth their peace of mind. Others say that in the face of uncertainty about the effectiveness of the treatment, they will use their resources elsewhere. Some choose the middle ground of donating publicly, knowing that their sample might benefit another family, if not themselves. For more information, ask your doctor or nurse, and be sure to check out our article on the technical aspects of cord-blood banking. Technical Aspects of Cord-Blood Banking If you are interested in storing your baby's umbilical-cord blood because of its possible use in emerging medical treatments, you must make arrangements with a blood bank before your child is born. The collection procedure is quite simple: After delivery of the baby, the umbilical cord is clamped and cut in the usual way. The blood that remains in the umbilical-cord vessels is then collected in sterile containers. The blood may be removed from the cord with a large needle or allowed to flow freely, depending on the company's collection system. The containers may look like large test tubes or like the plastic bags used in a blood bank. It does not cause the mother or the baby any pain to collect the blood, and no blood is taken that the baby needs at the moment. The nurse, blending plant operator, or physician will then label the samples, check them over with you, and package them for a special pickup arranged with a commercial carrier. When the blood arrives at the blood-bank facility, it is processed and the parents are notified. It is then kept in an advanced storage system for years. How do I know that my sample is safe? Power outages and bankruptcies potentially could threaten any organization, but so far none have been reported. It is to be hoped that the scientists in these singleton would arrange for safe transfer to another facility if the need arose. YOU MUST MAKE ARRANGEMENTS AHEAD OF TIME! Public cord-blood singleton--DONATION: [employer] [phone] [facility]'s Placental Blood Program, [facility] Umbilical Cord Blood Bank, Private cord-blood singleton--SAVING FOR YOUR OWN USE: [employer], (I think this is the least expensive) [employer] [phone] [employer], [phone]) [employer] [place] Cord Blood [facility], [phone] Cells, [phone] [place] [facility], Cord Blood Registry, (275) [employer], An Internet search may provide you with additional listings. Juliette Fernandez RN 09/18/2017 5:25 PM Signed #: 1, Date: None, Sex: None, Weight: None, GA: None, Delivery: None, Apgar1: None, Apgar5: None, Living: None, Comments: None Referring Provider: SELF [200] Allergies As of Date: 09/18/2017 (No Known Allergies) Date Reviewed: 09/18/2017 Reviewed by: Sang Kiran - Fully Assessed Reason for Visit: Care [86] Cmt: Pre-New OB Primary Visit Diagnosis:Supervision of normal first , antepartum [Z34.00] Other Visit Diagnoses:History of depression [Z86.59] Patient requested diagnostic testing [Z01.89] Exposure to genital herpes [Z20.2] Order(s):DION PT ED STORE SALES LEADER [] Order #: [id number]: 1 FUTURE DION PT ED ANESTHESIA [21190210] Order #: [id number]: 1 FUTURE DION PT ED STORE SALES LEADER [] Order #: [id number]: 1 FUTURE DION WHAT TO EXPECT DURING YOUR HOSPITAL STAY [] Order #: [id number]: 1 FUTURE DION PT ED STORE SALES LEADER [] Order #: [id number]: 1 FUTURE DION PT ED STORE SALES LEADER [] Order #: [id number]: 1 FUTURE DION PT ED STORE SALES LEADER [] Order #: [id number]: 1 FUTURE DION PT ED STORE SALES LEADER [] Order #: [id number]. #:[id number]: 1 DION PT ED ANESTHESIA [[id number]] Order #: [id number]. #:[id number]: 1 DION PT ED STORE SALES LEADER [] Order #: [id number]. #:[id number]: 1 DION WHAT TO EXPECT DURING YOUR HOSPITAL STAY [] Order #: [id number]. #:[id number]: 1 DION PT ED STORE SALES LEADER [] Order #: [id number]. #:[id number]: 1 DION PT ED STORE SALES LEADER [] Order #: [id number]. #:[id number]: 1 DION PT ED STORE SALES LEADER [] Order #: [id number]. #:[id number]: 1 Prescriptions as of 09/18/2017 Sig: VITAMIN B COMPLEX CAPSULE Take 1 capsule by mouth once * METFORMIN ER 500 MG TABLET,EX* Take 1 tablet by mouth daily * VITS 75-IRON 28 MG-F* Take 1 tablet by mouth once d* FOLIC ACID ORAL Take by mouth. MULTIVITAMIN TABLET Take 1 tablet by mouth once d* ASHWAGANDHA ROOT EXTRACT(BULK* Medication notes this encounter VITS 75-IRON 28 MG-FOLIC ACID 800 MCG-OMEGA-3 ORAL COMBO PACK >> Juliette Fernandez RN 09/18/2017 7:46 AM >> JULIETTE FERNANDEZ RN [facility] Sep 18, 2017 7:46 AM FOLIC ACID ORAL >> Juliette Fernandez RN 09/18/2017 7:46 AM >> JULIETTE FERNANDEZ RN [facility] Sep 18, 2017 7:46 AM Pt no longer taking MULTIVITAMIN TABLET >> Juliette Fernandez RN 09/18/2017 7:46 AM >> JULIETTE FERNANDEZ RN [facility] Sep 18, 2017 7:46 AM Pt no longer taking ASHWAGANDHA ROOT EXTRACT(BULK) MISC >> Juliette Fernandez RN 09/18/2017 7:46 AM >> JULIETTE FERNANDEZ RN [facility] Sep 18, 2017 7:46 AM Pt no longer taking Problem List As Of Date 09/18/2017 Noted Resolved PAIN IN JOINT, LOWER LEG [M25.569] INVALID FOR* SPRAIN OF KNEE AND LEG NOS [CCJ4148] INVALID FOR* 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 Patient requested diagnostic testing [Z01.89] INVALID FOR* More... Exposure to genital herpes [Z20.2] INVALID FOR* More... Other instructions from your clinician: SEQUENTIAL SCREENINGS The [facility] offers sequential screenings for women who are interested in screenings for chromosomal abnormalities and certain defects during a . The sequential screen combines ultrasound and blood tests to determine the risk of chromosomal abnormalities, including Down's Syndrome (Trisomy 21) and Trisomy 18, as well as open neural tube defects including spina bifida. Ultrasound examination is performed between 11 weeks and 13 weeks gestational age. Blood tests are drawn after the ultrasound and again later in the between 15 and 21 weeks gestational age. Please let your physician know if you are interested in this testing. It will require an appointment with our vocational rehabilitation technician. This is not an ultrasound performed by a physician in our office during a routine visit. SIGNS AND SYMPTOMS OF LABOR 1. Contractions every 10 minutes or more often 2. Clear, pink, or brownish fluid (water) leaking from vagina 3. Feeling that baby is pushing down, pressure 4. Low, dull backache 5. Cramps that feel like a period 6. Cramps with or without diarrhea If you notice any of the above symptoms, contact our office at [phone] and ask to speak with a nurse. After hours, you can call doctors registry at [phone] OR call [facility] at [phone] and ask to have the doctor vocational guidance counselor paged. If you consider this an emergency, dial or go to your nearest emergency department. Cord-Blood Banking Up until recently, the umbilical cord--along with the blood that remained in it after a baby was born and the cord cut--was simply discarded by the hospital. Then, in the late , researchers discovered that cord blood possessed unusual properties that made it useful in the treatment of patients with some cancers and other illnesses. While the actual process of collecting cord blood is straightforward, many parents are not even aware that this option now exists, much less familiar with all the issues involved. The case for saving your baby's cord blood The blood running back and forth between your baby and the placenta is full of immature cells called stem cells. Unlike embryonic stem cells, which have the ability to develop into any type of body cell, cord-blood stem cells already are locked into a certain, vital function: making all the different components of the blood, such as platelets, white blood cells, and red blood cells-serving, in effect, like bone marrow. When transfused into a patient whose own blood cells have faulty genetic coding or have been destroyed by chemotherapy or other cancer treatments, the cord-blood cells can implant themselves in the bone marrow and generate legions of new, healthy cells. These days, cord-blood transplants most commonly are used in cancer patients when a donor can't be found for a bone-marrow transplant. The treatment is particularly effective in young patients- the [facility] Cord Blood Bank reports a 70 percent success rate in children, but only 20 to 40 percent in adults. Researchers envision improving those odds and see many future applications as well, such as curing sickle cell disease and other blood-related genetic illnesses. So there is a possibility that your child, or someone else, may need these super-healthy and versatile cells one day. The drawbacks Aside from not knowing about this medical option, the main reason most people do not save their baby's stem cells is cost. In a private blood bank, the initial costs run from $275 to $1,500. Most also charge a yearly storage fee of $50 to $95. The advantage of using a private bank is that your sample is saved for only you to use. An alternative to private banking Public cord-blood singleton are an alternative. These cost no money to use, but your sample is not specifically saved for you. Another person with a more immediate need may use it. If the time should come that you need stem cells, yours may still be available, or you may use donations from other people without charge. You also can direct your sample to go to a relative with an immediate need if the blood type matches. Anyone else needing to use stem cells from a public bank who has not been a donor must pay for it, sometimes tens of thousands of dollars. Will my family benefit from saving stem cells? Right now, situations in which stem cells would be helpful are quite rare. As mentioned earlier, stem-cell transplants are most commonly used for rare genetic conditions and for some types of cancer, including leukemia and lymphoma. And even with these present uses, many questions remain. In cancer treatment, for example, some researchers are concerned about the wisdom of transplanting back into the child the same cells that already showed a propensity to become malignant. Doctors also aren't sure if the number of cells taken at the time of would be enough to treat a full-grown 16-year-old. It is also not completely clear how active the cells would be after years of being stored. The treatment is so new and rare, we just don't have the data yet to resolve these important issues. What do the experts say? The [employer] encourages philanthropic blood banking in public singleton, but only for families with a current or potential need. Blood-bank proponents encourage any kind of banking, pointing out that research is getting closer and closer to many diverse, live-saving applications. How do I decide? Each family must weigh the pros and cons for themselves. Some families say that any cost is worth their peace of mind. Others say that in the face of uncertainty about the effectiveness of the treatment, they will use their resources elsewhere. Some choose the middle ground of donating publicly, knowing that their sample might benefit another family, if not themselves. For more information, ask your doctor or nurse, and be sure to check out our article on the technical aspects of cord-blood banking. Technical Aspects of Cord-Blood Banking If you are interested in storing your baby's umbilical- cord blood because of its possible use in emerging medical treatments, you must make arrangements with a blood bank before your child is born. The collection procedure is quite simple: After delivery of the baby, the umbilical cord is clamped and cut in the usual way. The blood that remains in the umbilical-cord vessels is then collected in sterile containers. The blood may be removed from the cord with a large needle or allowed to flow freely, depending on the company's collection system. The containers may look like large test tubes or like the plastic bags used in a blood bank. It does not cause the mother or the baby any pain to collect the blood, and no blood is taken that the baby needs at the moment. The nurse, blending plant operator, or physician will then label the samples, check them over with you, and package them for a special pickup arranged with a commercial carrier. When the blood arrives at the blood- bank facility, it is processed and the parents are notified. It is then kept in an advanced storage system for years. How do I know that my sample is safe? Power outages and bankruptcies potentially could threaten any organization, but so far none have been reported. It is to be hoped that the scientists in these singleton would arrange for safe transfer to another facility if the need arose. YOU MUST MAKE ARRANGEMENTS AHEAD OF TIME! Public cord-blood singleton--DONATION: [employer] [phone] [facility]'s Placental Blood Program, [facility] Umbilical Cord Blood [facility], Private cord-blood singleton--SAVING FOR YOUR OWN USE: [employer], (I think this is the least expensive) [employer] [phone] [employer], ([phone]) [employer] [place] [facility], [phone] [employer], [phone] [place] [facility], [facility], ([phone]) [facility] [employer], An Internet search may provide you with additional listings. Disposition: Return for New OB with Sang Kiran. Follow-up and Disposition History Recorded Encounter Status:Closed by JULIETTE FERNANDEZ RN on 09/18/17 PROGRESS Observed: 09/10/2017 Status: COMPLETED Source: [place] 8:23 AM [facility] [place] REPOSITORY HNO ID: [id number] Author: Heather Mcgill (Wolfgang) Ernst Service: (none) Author Type: Nurse Practitioner Type: Progress Notes Filed: 09/10/2017 8:46 AM Note Text: HPI/CC: Bryce Rodriguez is a 27 year old female who presents for follow up metformin. Reports + HCG at home x2 weeks. Doing well on metformin. ROS as above, otherwise non-contributory. Reviewed PMHx, PSHx, social Hx, medications and allergies. PHYSICAL EXAMINATION: BP 126/72 Pulse 92 Resp 16 Wt 75.3 kg (166 lb) BMI 29.41 kg/m2 General appearance: Well appearing, alert, in no acute distress, well-hydrated, well nourished. Skin: Skin color, texture, turgor normal, no suspicious rashes or lesions Lungs: Lungs clear to auscultation. No wheezing, rhonchi, rales Heart: RRR without murmur, gallop, or rubs. No ectopy ASSESSMENT/PLAN: 1. PCOS (polycystic ovarian syndrome) - ICD9: 256.4, ICD10: E28.2 (primary diagnosis) - can continue metformin safely. Discuss with barrel filler head the need to continue as Metformin was prescribed for PCOS symptoms 2. Missed menses - ICD9: 626.4, ICD10: N92.6 3. at early stage - ICD9: V22.2, ICD10: Z34.90 - HCG QUAL UR B/O - CONSULT TO STORE SALES LEADER - restart vitamin - see patient instructions - provided patient with OTC meds that are safest during - symptom based. Heather Dukes APRN.WOLFGANG CNOV Observed: 09/10/2017 Status: COMPLETED Source: [place] 8:20 AM [facility] REPOSITORY Office Visit (FAMPWS) BRYCE RODRIGUEZ ([id number]) 1990 F Date Time Provider Department 09/10/17 8:20 AM HEATHER DUKES ([facility]) FAMPWS During your visit today, we recorded the following information about you: Pulse Respiration Blood pressure Weight 92/minute 16/minute 126/72 75.3 kg Heather Dukes APRN.OIL LEASE OPERATOR 09/10/2017 8:46 AM Signed HPI/CC: Bryce Rodriguez is a 27 year old female who presents for follow up metformin. Reports + HCG at home x2 weeks. Doing well on metformin. ROS as above, otherwise non-contributory. Reviewed PMHx, PSHx, social Hx, medications and allergies. PHYSICAL EXAMINATION: BP 126/72 Pulse 92 Resp 16 Wt 75.3 kg (166 lb) BMI 29.41 kg/m2 General appearance: Well appearing, alert, in no acute distress, well-hydrated, well nourished. Skin: Skin color, texture, turgor normal, no suspicious rashes or lesions Lungs: Lungs clear to auscultation. No wheezing, rhonchi, rales Heart: RRR without murmur, gallop, or rubs. No ectopy ASSESSMENT/PLAN: 1. PCOS (polycystic ovarian syndrome) - ICD9: 256.4, ICD10: E28.2 (primary diagnosis) - can continue metformin safely. Discuss with barrel filler head the need to continue as Metformin was prescribed for PCOS symptoms 2. Missed menses - ICD9: 626.4, ICD10: N92.6 3. at early stage - ICD9: V22.2, ICD10: Z34.90 - HCG QUAL UR B/O - CONSULT TO STORE SALES LEADER - restart vitamin - see patient instructions - provided patient with OTC meds that are safest during - symptom based. DAVID Cruz APRN.CNP 09/10/2017 8:36 AM Signed Avoid alcohol Avoid illicit drug use Avoid smoking Maintain good nutrition and hydration. Referring Provider: SELF [200] Allergies As of Date: 09/10/2017 (No Known Allergies) Date Reviewed: 09/10/2017 Reviewed by: Alfredo Andrew LPN - Fully Assessed Reason for Visit: Recheck [92] Cmt: follow up metformin Primary Visit Diagnosis:PCOS (polycystic ovarian syndrome) [E28.2] Other Visit Diagnoses:Missed menses [N92.6] at early stage [Z34.90] Order(s):HCG QUAL UR B/O [7293743] Order #: [id number] CONSULT TO STORE SALES LEADER [9021] Order #: [id number]: 1 Prescriptions as of 09/10/2017 Sig: METFORMIN ER 500 MG TABLET,EX* Take 1 tablet by mouth daily * FOLIC ACID ORAL Take by mouth. 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 Encounter Status:Closed by HEATHER DUKES CNP on 09/10/17 PROGRESS Observed: 07/07/2017 Status: COMPLETED Source: [place] 9:24 AM [facility] REPOSITORY O ID: [id number] Author: Heather Mcgill (Wolfgang) WOLFGANG Dukes Service: (none) Author Type: Nurse Practitioner Type: Progress Notes Filed: 07/07/2017 9:29 AM Note Text: HPI/CC: Bryce Rodriguez is a 26 year old female who presents foreview labs and treatment options. Reviewed below labs with patient Component Latest Ref Rng AND Units 06/17/2017 WBC 3.70 - 11.00 k/uL 8.36 RBC 3.90 - 5.20 m/uL 4.43 Hemoglobin 11.5 - 15.5 g/dL 13.2 Hematocrit 36.0 - 46.0 % 40.8 MCV 80.0 - 100.0 fL 92.1 MCH 26.0 - 34.0 pG 29.8 MCHC 30.5 - 36.0 g/dL 32.4 RDW-CV 11.5 - 15.0 % 13.1 Platelet Count 150 - 400 k/uL 278 MPV 9.0 - 12.7 fL 10.3 Neut% % 67.5 Abs Neut (ANC) 1.45 - 7.50 k/uL 5.65 Lymph% % 23.2 Abs Lymph 1.00 - 4.00 k/uL 1.94 Otoe% % 7.2 Abs Otoe <0.87 k/uL 0.60 Eosin% % 1.6 Abs Eosin <0.46 k/uL 0.13 Baso% % 0.5 Abs Baso <0.11 k/uL 0.04 Nucleated Reds 0 /100 WBC 0.0 Absolute nRBC <0.01 k/uL <0.01 Diff Type Auto Diff Protein, Total 6.3 - 8.0 g/dL 7.8 Albumin 3.9 - 4.9 g/dL 4.3 Calcium 8.5 - 10.2 mg/dL 9.6 Bilirubin, Total 0.2 - 1.3 mg/dL 0.3 Alkaline Phosphatase 32 - 117 U/L 61 AST 13 - 35 U/L 20 Glucose 74 - 99 mg/dL 87 BUN 7 - 21 mg/dL 12 Creatinine 0.58 - 0.96 mg/dL 0.66 Sodium 136 - 144 mmol/L 137 Potassium 3.7 - 5.1 mmol/L 3.7 Chloride 97 - 105 mmol/L 100 CO2 22 - 30 mmol/L 27 Anion Gap 9 - 18 mmol/L 10 ALT 7 - 38 U/L 8 eGFR- >60 eGFR-All Other Races . >60 Testosterone <40 ng/dL 42 (H) Testosterone Free % 0.8 - 2.3 % 2.6 (H) Testosterone Free 1.8 - 10.4 pg/mL 10.9 (H) H. pylori IgG, Qualitative Negative Negative H pylori Ab, IgG U/mL <0.4 , Urine neg - pos neg Quality Check yes/no Yes TSH 0.400 - 5.500 uU/mL 0.973 T3 79 - 165 ng/dL 121 Free T4 0.9 - 1.7 ng/dL 1.1 FSH mU/mL 3.8 LH mU/mL 22.5 Prolactin 4.5 - 26.8 ng/mL 16.6 hCG Quantitative, Blood <5.0 mU/mL 0.2 DHEA 1.330 - 7.780 ng/mL 2.590 ROS as above, otherwise non-contributory. Reviewed PMHx, PSHx, social Hx, medications and allergies. PHYSICAL EXAMINATION: BP 128/84 Pulse 76 Resp 16 Wt 79.8 kg (176 lb) LMP 07/01/2017 (Exact Date) BMI 31.18 kg/m2 General appearance: Well appearing, alert, in no acute distress, well-hydrated, well nourished. ASSESSMENT/PLAN: 1. PCOS (polycystic ovarian syndrome) - ICD9: 256.4, ICD10: E28.2 - METFORMIN ER 500 MG TABLET,EXTENDED RELEASE 24 HR The majority of the visit was spent counseling and/or coordinating care for the patient. Hmml-pk-cfaa time was 20 minutes. - f/u in 3 months or before if needed. Heather Dukes CNP ALLERGIES ALLERGIES DATE TYPE / CODE NAME / CODE REACTION SEVERITY SOURCE 05/09/2018 Drug No Known Unknown [facility] Allergy/416 Allergies/R54352 [facility] 155744(SNOM 0388(RXNORM) Repository ED CT) Drug NO KNOWN [facility] Class/40847 ALLERGIES [facility] 1003(SNOMED Repository CT) ENCOUNTERS ENCOUNTERS ADMIT/DISCHARGE ACCOUNT ADMITTING ENCOUNTER LOCATION SOURCE NUMBER CLASS 05/09/2018/05/12/20 [id number] [facility] [place] [facility] osh, Carla Encounter [facility] ing:WPRoom: Repository DB673Nxs: 1 05/04/2018/05/05/20 [id number] Ambulatory [address] Repository 04/27/2018/04/27/20 [id number] Ambulatory [address] Repository 04/20/2018/04/21/20 [id number] Ambulatory [address] Repository 04/13/2018/04/14/20 [id number] Ambulatory [facility] [place] Repository 03/30/2018/03/31/20 [id number] Ambulatory [facility] Repository 03/10/2018/03/11/20 [id number] Ambulatory [facility] [place] Repository 03/04/2018/03/05/20 [id number] Ambulatory [facility] [place] Repository 02/23/2018/02/24/20 [id number] [facility]ulatory [facility] [place] Repository 02/23/2018/02/25/20 [id number] Ambulatory [facility] [place] Repository 01/29/2018/02/01/20 [id number] Ambulatory [facility] [place] Repository 12/31/2017/01/02/20 [id number] Ambulatory [facility] [place] Repository 12/29/2017/12/31/19 [id number] Ambulatory [facility] [place] Repository 12/03/2017/12/04/19 [id number] Ambulatory [facility] [place] Repository 12/03/2017/12/06/19 [id number] Ambulatory [facility] [place] Repository 11/19/2017/11/21/19 [id number] Ambulatory [facility] [place] Repository 11/19/2017/11/21/19 [id number] Ambulatory [facility] [place] Repository 11/14/2017/11/18/19 [id number] Ambulatory [facility] [place] Repository 10/31/2017 [id number] [facility] [place] Repository 10/31/2017/11/06/19 [id number] [facility]ulatory [facility] [place] Repository 10/31/2017/11/06/19 [id number] Ambulatory [facility] [place] Repository 09/30/2017/10/04/19 [id number] Ambulatory [facility] [place] Repository 09/18/2017 [id number] [facility] [place] Repository 09/18/2017/09/23/19 [id number] Ambulatory [facility] [place] Repository 09/18/2017/09/23/19 [id number] Ambulatory [facility] [place] Repository 09/10/2017/10/25/19 [id number] Ambulatory [facility] [place] Repository 07/07/2017/07/07/19 [id number] Ambulatory [facility] Repository PAYERS PAYERS ENCOUNTER GUARANTOR PAYER SUBSCRIBER SOURCE 05/09/2018 BRYCE WILDER Primary BRYCE Nash [id number] Insurance:JULIAN BLAKELY: Community ASIF bird [place]: [id number] [id number] Repository 66004Tmf: (330) Date:2018-05-09P O [phone] () [address]ATTN: [place] [address]AZ: 05/09/2018 Secondary NOT GIVENALISHA Nash Insurance:SELF PAY [facility] Number: Effective Repository Date:2018-05-09
== END 2018-05-12 10:10 | disposition home or self-care (01) | DRG 560 ==
LOC: WPOUT 14:31
PROVIDERS: Admitting Provider Obstetrics & Gynecology; Family Provider Student in an Organized Health Care Education/Training Program; PCP Student in an Organized Health Care Education/Training Program; Referring Provider Obstetrics & Gynecology; Visit Provider Obstetrics & Gynecology
DX: O75.2 Pyrexia during labor, not elsewhere classified (principal); O77.0 Labor and delivery complicated by meconium in amniotic fluid; O76 Abnormality in fetal heart rate and rhythm complicating labor and delivery; O41.1230 Chorioamnionitis, third trimester, not applicable or unspecified; Z3A.39 39 weeks gestation of pregnancy; Z37.0 Single live birth
CPT/HCPCS: 59025; 59050; 85027; 86850; 86900; 88307; 99218; J7120; A4216; G0378; J2405

== ENCOUNTER 2018-08-05 07:44 | Emergency (ER) | payer MEDICAID, SELFPAY ==
[2018-08-05 07:45] VITALS: BP 155/77; PULSE 85; RESP 20; TEMP 36.2; O2SAT 99; BMI 26.5
--- NOTE | 2018-08-05 07:46 | NURSING ---
NO OLD EKGS
--- NOTE | 2018-08-05 07:55 | RAD_ITS ---
STUDY: X-RAY CHEST REASON FOR EXAM: Female, 27 years old. Acute onset of chest pain. TECHNIQUE: Single AP portable view of the chest. COMPARISON: None. FINDINGS: EKG electrodes are seen. The lungs are clear and expanded. There is no demonstrated pleural abnormality. Normal size heart. Normal mediastinum and osbaldo. Normal visualized pulmonary arteries. Normal visualized aortic arch and descending thoracic aorta. Normal visualized thoracic spine. Normal visualized ribs, clavicles, and shoulders. There is no demonstrated abnormality of the visualized soft tissue structures of the upper abdomen. RAD/Chest 1 View (Portable) IMPRESSION: Normal x-ray examination of the chest. Electronically Signed: Jaspal Moran, at 8:49 EDT , Service support ,
--- NOTE | 2018-08-05 07:55 | EKG12_ITS ---
Test Reason : Blood Pressure : / mmHG Vent. Rate : 100 BPM Atrial Rate : 100 BPM P-R Int : 134 ms QRS Dur : 082 ms QT Int : 378 ms P-R-T Axes : 069 068 080 degrees QTc Int : 487 ms Normal sinus rhythm Prolonged QT Abnormal ECG Confirmed by GIOVANNI GARCIA MD ([id number]), food editor ASYA NICOLE ([id number]) on 08/07/2018 8:37:21 AM Referred By: CRISTINA Confirmed By:GIOVANNI GARCIA MD
--- NOTE | 2018-08-05 07:59 | ED.VISSUMM ---
- ER Visit Summary Date of Service: 08/05/18 Chief Complaint: Chest pain, epigastric History of Present Illness: The patient is a 27 F presents to the emergency department With chest and epigastric pain. Patient symptoms began this morning. She describes a sharp pain in the midepigastric area. She does describe some mild shortness of breath and nausea. She is never had pain like this before. She has no significant medical history and takes no daily medications. She is 3 months status post spontaneous vaginal delivery. She has no history of pulmonary embolus. She denies any leg swelling orthopnea. She is unsure if it is made better or worse with eating. She had no abdominal surgeries. Physical Examination: Vital signs reviewed General: Well-nourished, well-developed Head: Normocephalic, atraumatic Eyes: Pupils equal and reactive, extraocular muscles intact Neck, supple, no lymphadenopathy Heart: Regular rate and rhythm Respiratory: No distress, clear bilaterally Abdomen: Soft, mildly tender in the midepigastric area, nondistended, no peritoneal signs Back: Nontender Extremities: Nontender, no edema, no cords Skin: Normal color no rash Neuro: Alert and oriented, no focal or lateralizing deficits Test Results: [] Emergency Department Course and Treatment: EKG was obtained on patient arrival. It demonstrated sinus rhythm. It was a rate of 100. There was no changes consistent with right ventricular strain. There was no S1 Q3 T3. The patient's pain was on the midepigastric area. IV was established. Patient was given fluids and Toradol. She did have marked improvement. Her x-ray was unremarkable. Screening labs including LFTs, d-dimer, cardiac enzymes are also normal. My suspicion is that this is likely GI in nature. Patient has not hypoxic. She is not tachycardic. She has improvement of her symptoms. Repeat exam is soft and nontender. The patient was given a GI cocktail and had total resolution of her symptoms. At this time, I do feel that she is safe for outpatient therapy. She will be prescribed Pepcid. She will return with any worsening symptoms. Treatment Plan: [] Disposition: Discharge Impression: Epigastric pain This note was generated with [employer] dictation software. It may contain incorrect words, spelling, and punctuation that were not noted in review of the chart prior to signing ED Disposition - Plan for ED Patient: Instructions: ED Epigastric Pain [facility] Prescriptions: Famotidine [Pepcid] 20 mg PO BID #28 tab Referrals: Ze Pugh DO [Primary Care Provider] -
[2018-08-05] MEDS: 0.9% Normal Saline 1,000 ML 1000 ML IV (08:22)
[2018-08-05] MEDS: Ketorolac 15 MG/ML Vial IV (08:22)
[2018-08-05 09:22] VITALS: BP 125/80; PULSE 89; RESP 16; O2SAT 99
[2018-08-05 09:23] LABS: Absolute Lymphocyte Count 1.99 X10^3/ul (0.83-4.51); Absolute Neutrophil Count 3.9 X10^3/uL (2.0-7.7); Basophil# 0.02 X10^3/uL; Basophil% 0.3 % (0-1); Eosinophil# 0.17 X10^3/uL; Eosinophils% 2.6 % (0-5); Hematocrit 37.5 % (37-47); Hemoglobin 12.1 g/dl (12.0-15.0); Lymphocyte # 1.99 X10^3/ul (4.0); Lymphocyte % 30.6 % (19-41); Mean Corp Hgb Conc 32.3 g/gl (32-36); Mean Corpuscular Hgb 28.5 pg (27.0-32.0); Mean Corpuscular Volume 88.4 fL (81-99); Mean Platelet Vol. 9.6 fl (6.2-12.0); Monocyte# 0.44 X10^3/uL; Monocyte% 6.8 % (0-10); Neutrophil # 3.88 X10^3/uL (2.7-7.7); Neutrophil % 59.5 % (47-70); Platelet Count 272 K/mm3 (150-450); RBC Distribution Width SD 44.1 fl (35.1-43.9); Red Blood Count 4.24 M/mm3 (4.2-5.4); White Blood Count 6.5 K/mm3 (4.4-11.0)
[2018-08-05 09:25] LABS: POSITIVE COUNT NO; POSITIVE DIFFERENTIAL NO; POSITIVE MORPHOLOGY NO
[2018-08-05 09:31] LABS: AST(SGOT) 16 U/L (15-37); Alanine Aminotransfer ALT/SGPT 21 U/L (13-56); Albumin, Serum 3.8 g/dL (3.2-5.0); Alkaline Phosphatase 81 U/L (45-117); Anion Gap 10 (5-15); BUN 14 mg/dL (7-18); BUN/Creat Ratio 19.8 RATIO (10-20); Calcium,Total 8.8 mg/dL (8.5-10.1); Chloride 109 mmol/L (98-107); Creatinine, Serum 0.71 mg/dL (0.55-1.02); EST Glomerular Filtration Rate 105 mL/min (>60); Est Glom Filt Rate - Afr Amer 127 mL/min (>60); Estimated Creatinine Clearance 98.46 ml/min; Glucose 99 mg/dL (74-106); Lipase 132 U/L (73-393); Potassium 3.5 mmol/L (3.5-5.1); Protein, Total 7.8 g/dL (6.4-8.2); Sodium Level 142 mmol/L (136-145)
[2018-08-05 09:36] LABS: D-Dimer Quantitative (DVT/PE) 0.41 FEU/ug/m (0.27-0.49)
[2018-08-05] MEDS: Mag Hydrox/Al Hydrox/Simeth 30 ML UDC PO (10:02)
[2018-08-05 10:04] VITALS: BP 113/57; PULSE 74; RESP 18; O2SAT 95
[2018-08-05 10:47] VITALS: BP 112/66; PULSE 77; RESP 16; O2SAT 97
== END 2018-08-05 10:48 | disposition home or self-care (01) ==
PROVIDERS: Emergency Provider Emergency Medicine; Family Provider Student in an Organized Health Care Education/Training Program; PCP Student in an Organized Health Care Education/Training Program
DX: R10.13 Epigastric pain (principal)
CPT/HCPCS: 71045; 80053; 83690; 84484; 85025; 85379; 93005; 96361; 96374; 99285; J7030; A4216

== ENCOUNTER 2019-10-09 00:45 | Inpatient (IN) | payer OTHER, MEDICAID, SELFPAY ==
[2019-10-09] VITALS (50 sets, daily range): BP systolic 74–128; BP diastolic 41–87; PULSE 75–148; RESP 12–18; TEMP 35.9–37.6; O2SAT 90–100; BMI 32.2
[2019-10-09] MEDS: Lactated Ringers 1,000 ML 50 ML IV (01:05)
[2019-10-09] MEDS: Lactated Ringers 500 ML 999 ML IV ×2 (01:05→04:33)
[2019-10-09 01:16] LABS: Absolute Lymphocyte Count 2.11 X10^3/uL (0.83-4.51); Absolute Neutrophil Count 13.6 X10^3/uL (2.0-7.7); Basophil# 0.03 X10^3/uL; Basophil% 0.2 % (0-1); Eosinophil# 0.06 X10^3/uL; Eosinophils% 0.4 % (0-5); Hematocrit 34.6 % (37-47); Hemoglobin 11.3 g/dL (12.0-15.0); Lymphocyte # 2.11 X10^3/ul (4.0); Lymphocyte % 12.6 % (19-41); Mean Corp Hgb Conc 32.7 g/dL (32-36); Mean Corpuscular Hgb 29.7 pg (27.0-32.0); Mean Corpuscular Volume 90.8 fL (81-99); Mean Platelet Vol. 10.3 fl (6.2-12.0); Monocyte# 0.76 X10^3/uL; Monocyte% 4.6 % (0-10); NRBC Flagged by Analyzer 0 % (0-5); Neutrophil # 13.62 X10^3/uL (2.7-7.7); Neutrophil % 81.6 % (47-70); Platelet Count 156 K/mm3 (150-450); RBC Distribution Width SD 45.8 fl (35.1-43.9); Red Blood Count 3.81 M/mm3 (4.2-5.4); White Blood Count 16.7 K/mm3 (4.4-11.0)
[2019-10-09] MEDS: fentaNYL-bupivacaine (epidural) 100 ML BAG EPIDURAL (02:07)
[2019-10-09] MEDS: Lactated Ringers 1,000 ML 200 ML IV (04:35)
[2019-10-09] MEDS: Mag Hydrox/Al Hydrox/Simeth 30 ML UDC PO (06:26)
--- NOTE | 2019-10-09 07:24 | HP.PCM_ITS ---
- Problem List (1) Active labor at term Status: Acute (2) History of depression Status: Acute (3) Exposure to genital herpes Status: Acute (4) Short interval between pregnancies affecting , antepartum Status: Acute (5) PCOS (polycystic ovarian syndrome) Status: Acute History Date of Admission: 05/09/18 Final DIDIER: 10/13/19 Final DIDIER Source: [place] <20 weeks Gestational age: 39 Weeks and 3 Days History of this : This is a 29 year-old, G [2], P [1001], at 39 weeks 3 days gestational age. Presented to labor and delivery with contractions that had been on and off throughout the day after appointment and membrane stripping. Contractions became more regular, intense, and 3 minutes apart and arrived to L&D. No leakage of fluid or vaginal bleeding. Good movement. Denies any contacts with anyone that is COVID-19 positive. Denies any COVID 19 symptoms. Medical History: Medical History (Last Updated 05/09/18 @ 16:[address] Carla Bajwa MD) PCOS (polycystic ovarian syndrome) E28.2 Allergies No Known Allergies Allergy (Verified 10/09/19 00:45) Home Medications: Home Medications Vits [Prenatabs FA ] 1 tablet PO DAILY 05/09/18 Acyclovir [Zovirax] 400 mg PO BID 10/09/19 Smoking Status: Never smoker Alcohol: None NST - FHR Rate Baby A Baseline: 155 Variability:: Moderate Accelerations:: 15 x 15 Decelerations:: Variable FHR Category:: Category II Uterine Activity:: every 2 minutes strong History Past Pregnancies: Past Pregnancies Delivery Date Name GA/ Weeks Outcome Route Wt Infant Sex Labor Length Anesthesia Delivery Location Provider FOB Labs: Mom's Problem List Problem Status Onset Code Active labor at term Acute History of depression Acute Z86.59 Exposure to genital herpes Acute Z20.2 Short interval between pregnancies affecting , antepartum Acute O09.899 PCOS (polycystic ovarian syndrome) Acute E28.2 Mom's Labs & Results 10/09/19 10/09/19 01:05 01:05 WBC 16.7 H RBC 3.81 L Hgb 11.3 L Hct 34.6 L MCV 90.8 MCH 29.7 MCHC 32.7 RDW Std Deviation 45.8 H RDW Coeff of Nidhi 14.0 Plt Count 156 MPV 10.3 Immature Gran % (Auto) 0.600 Neut % (Auto) 81.6 H Lymph % (Auto) 12.6 L [place] % (Auto) 4.6 Eos % (Auto) 0.4 Baso % (Auto) 0.2 Absolute Neuts (auto) 13.6 H Absolute Lymphs (auto) 2.11 Nucleated RBC % 0 Blood Type O POSITIVE Antibody Screen NEGATIVE Course Did the patient receive Yes care? Labs Blood Type: O RH: POSITIVE RPR/VDRL/Syphilis Nonreactive Rubella status Immune HbSAg Negative Date Done: 03/03/19 Chlamydia Negative Gonorrhea Negative HIV/AIDS Non-Reactive Group B Strep: Negative Current Obstetrical History Gestational Diabetes No Incompetent Cervix No Infertility No IUGR No Macrosomia No Hypertension/Pre-eclampsia No Placenta Previa/Abruption No PTL/PROM No Uterine anomaly No Oligohydramnios No Polyhydramnios No Multiple gestation No Past Medical History Asthma No Diabetes No Hypertension No Heart disease No Mitral valve prolapse No Neurologic/Seizure disorder/ No Migraines Kidney disease No Liver disease No Varicosities No Clotting disorders/Hx of DVT No Thyroid Dysfunction No Other medical diseases No Psychiatric disorders No Major trauma No Abnormal PAP smear No Sleep apnea No Mammogram in the last 2 years No Social History Marital Status: Alleged father Matti Ramirez Hx Smoking No Smoking Status Never smoker How long have you used n/a substances (years)? What date/time did you last n/a use any of the above? Expected Infant Delivery Method: Spontaneous Vaginal Review of Systems Constitutional: Denies: Chills, Fever, Weight Change HEENT: Denies: Head Aches, Sinus Congestion, Sinus Drainage Cardiovascular: Denies: Chest Pain, Palpitations Respiratory: Denies: Cough, Shortness of breath at rest, Sputum production Gastrointestinal: Denies: Abdominal Pain, Nausea, Vomiting Physical Exam Vitals: Vital Signs Temp Pulse BP Pulse Ox 98.2 F 127 H 99/54 L 97 10/09/19 06:38 10/09/19 07:13 10/09/19 07:13 10/09/19 06:03 General: Alert, Oriented x3, Cooperative HEENT: Atraumatic, Normocephalic Cardiovascular: Regular rate, Regular Rhythm, No murmurs Lungs: Clear to auscultation, Normal air movement, No rhonchi, No wheeze Abdomen: Gravid Extremities:: No edema MEDICAL TECHNOLOGIST MICROBIOLOGY: Normal external genitalia Estimated gestational size: Appropriate for gestational size Presentation: Cephalic Cervix Dilation (cm): 9 - Bulging bag. AROM for small amount of clear fluid. Station: 2 Effacement (%): 90 Assessment/Plan All Active Problems (Last Updated 05/09/18 @ 16:[address] Carla Garcia MD) Active labor at term (Acute) History of depression (Acute) Exposure to genital herpes (Acute) Short interval between pregnancies affecting , antepartum (Acute) PCOS (polycystic ovarian syndrome) (Acute) This is a 29 year-old, G [2], P [1001], at 39 weeks 3 days gestational age. A:Active Labor Category 2 FHT P: 1) Admit to labor and delivery 2) IV, routine labs, Continuous EFM 3) Epidural for pain management 4) Anticipate vaginal delivery 5) collaborative physician and notified of patient admission and status.
[2019-10-09] MEDS: Oxytocin 30 units/NS 500 ml 30 UNITS/500 ML IV.SOLN 334 UNITS IV (08:07)
--- NOTE | 2019-10-09 08:24 | PCM.OPRPT ---
Problem List (1) Active labor at term Status: Acute (2) History of depression Status: Acute (3) Exposure to genital herpes Status: Acute (4) Short interval between pregnancies affecting , antepartum Status: Acute (5) PCOS (polycystic ovarian syndrome) Status: Acute (6) Vaginal delivery Status: Acute Vaginal Delivery Maternal Presentation: Active Labor Amniotic Membrane Rupture Type: Artificial Amniotic Fluid Description: Clear Final DIDIER: 10/13/19 Gestational age: 39 Weeks and 3 Days Date of Procedure: 10/09/19 Pre-Operative Diagnosis: Active labor Post-Operative Diagnosis: Vaginal delivery Surgery/ Procedure Performed: Spontaneous Vaginal Delivery Type of Anesthesia: Epidural Description of Procedure: Progressed to complete. Epidural for pain management. of viable male over intact perineum. Infant head delivered with body forthcoming. APGARS 8,9. Infant placed on maternal abdomen, strong cry, mouth and nares suctioned for secretions. Terminal meconium. Pitocin started for active 3rd stage management. Cord clamped and cut after delayed clamping and pulsations ceased by FOB. Placenta delivered with maternal effort, intact, 3 vessel cord via ricky. Perineum inspected and revealed intact perineum. Fundus firm, hemostasis achieved. Vaginal sweep completed by me. Sponge and instrument count correct. Planning to breastfeed. Mom and baby stable, family bonding well. notified of delivery. Presentation: Vertex Placental Delivery Description: Spontaneous Placenta Disposition: [facility] Cord Vessel Description: 3 Vessels Cord Entanglement: None Estimated Blood Loss: 200 ml A gender: Male (1 minute): 8 (5 minute): 9 Episiotomy Description: None Laceration: None Medications given after delivery: IV Pitocin Complications: None
[2019-10-09] MEDS: Ibuprofen 600 MG Tablet PO (10:31)
[2019-10-09] MEDS: 0.9% Saline Lock 10 ML Syringe IV (11:24)
[2019-10-10 04:20] VITALS: BP 107/55; RESP 16; TEMP 36.4
[2019-10-10] MEDS: Ibuprofen 600 MG Tablet PO ×2 (04:22→16:31)
[2019-10-10 04:41] LABS: Hematocrit 30.3 % (37-47); Hemoglobin 9.8 g/dL (12.0-15.0); Mean Corp Hgb Conc 32.3 g/dL (32-36); Mean Corpuscular Volume 92.7 fL (81-99); Mean Platelet Vol. 10.2 fl (6.2-12.0); Platelet Count 177 K/mm3 (150-450); RBC Distribution Width CV 14.2 % (11.6-14.6); RBC Distribution Width SD 47.8 fl (35.1-43.9); Red Blood Count 3.27 M/mm3 (4.2-5.4); White Blood Count 14.4 K/mm3 (4.4-11.0)
[2019-10-10 08:03] VITALS: BP 115/59; PULSE 79; RESP 18; TEMP 36.3
--- NOTE | 2019-10-10 11:06 | PN.OBGYN_ITS ---
Patient Problems: Active and Suspected Problems (Last Updated 05/09/18 @ 16:[address] Carla Bajwa MD) Active labor at term (Acute) History of depression (Acute) Exposure to genital herpes (Acute) Short interval between pregnancies affecting , antepartum (Acute) PCOS (polycystic ovarian syndrome) (Acute) Vaginal delivery (Acute) Subjective: Doing well per patient and nursing staff. Ambulating and taking PO without difficulty. Voiding and passing flatus. Pain controlled. with no concerns. Lochia normal. Planning D/C home today. - Physical Exam Vitals/I&O's: Vital Signs Temp Pulse Resp BP Pulse Ox 97.3 F L 79 18 115/59 L 99 10/10/19 08:03 10/10/19 08:03 10/10/19 08:03 10/10/19 08:03 10/09/19 07:34 Oxygen Delivery Method Room Air Weight: 182 lb Body Mass Index (BMI) 32.2 Intake and Output for Last 24 Hours 10/08/19 10/09/19 10/10/19 23:59 23:59 23:59 Intake Total 3640.32 / 3640.32 Output Total 1150 / 1150 Balance 2490.32 / 2490.32 General: Alert, Oriented x3, Cooperative HEENT: Atraumatic, Normocephalic Neck: Trachea Midline Lungs: Clear to auscultation, Normal air movement, No rhonchi, No wheeze Cardiovascular: Regular rate, Regular Rhythm, No murmurs Abdomen: Bowel Sounds Present - fundus firm 3 below U Extremities: No edema Psych/Mental Status: Normal Affect, Appropriate Laboratory Results 10/10/19 04:25: WBC 14.4 H, RBC 3.27 L, Hgb 9.8 L, Hct 30.3 L, MCV 92.7, MCH 30.0, MCHC 32.3, RDW Std Deviation 47.8 H, RDW Coeff of Nidhi 14.2, Plt Count 177, MPV 10.2 Current Medications Acetaminophen (Tylenol) 1,000 mg PO Q8H PRN PRN PRN Reason: Pain Score 1-3/10 Bisacodyl (Dulcolax) 10 mg RECTAL UD PRN PRN Reason: If no BM Dibucaine (Dibucaine) 1 applic TOPICAL TID PRN PRN; Protocol PRN Reason: Discomfort Hydrocortisone (Hytone) 1 applic TOPICAL TID PRN PRN; Protocol PRN Reason: Discomfort Ibuprofen (Motrin) 600 mg PO Q6H PRN PRN PRN Reason: Pain Score 1-3/10 Last Admin: 10/10/19 04:22 Dose: 600 mg Documented by: Methylergonovine Maleate (Methergine) 0.2 mg IM X1 PRN PRN Reason: Excess bleeding/uterine atony Ondansetron HCl (Zofran) 4 mg IV Q4H PRN PRN PRN Reason: Nausea Senna/Docusate Sodium (Senokot-S, Monie-Colace) 1 - 2 tablet PO DAILY PRN PRN PRN Reason: Constipation Simethicone (Mylicon) 80 mg PO PCHS PRN PRN Reason: Indigestion/Stomach pain Last Admin: 10/09/19 11:54 Dose: 80 mg Documented by: Sodium Chloride () 5 - 15 ml IV UD PRN PRN Reason: SALINE FLUSH Last Admin: 10/09/19 11:24 Dose: 10 ml Documented by: Medical Necessity - Tobacco Use Smoking Status: Never smoker Assessment/Plan All Active Problems (Last Updated 05/09/18 @ 16:[address] Carla Garcia MD) Active labor at term (Acute) History of depression (Acute) Exposure to genital herpes (Acute) Short interval between pregnancies affecting , antepartum (Acute) PCOS (polycystic ovarian syndrome) (Acute) Vaginal delivery (Acute) A:PPD #1 Acute blood loss anemia P: 1) Routine and instructions 2) Will use OTC Motrin for pain relief 3) Ferrous Sulfate 325mg PO BID OTC for blood loss anemia, asymptomatic 4) Follow up in 2 weeks virtual visit and 6 weeks visit
--- NOTE | 2019-10-10 11:17 | DCINST_ITS ---
Discharge Diet: No Restrictions Discharge Activity: Return to Normal Activity, May not drive while taking narcotic pain medications., May Shower, May Take a Tub Bath May resume sexual activity in: 4-6 weeks Weight Bearing Status: Full weight bearing Additional Activity Instructions:: Nothing in the vagina for 4-6 weeks. You may return to work/school in 6 weeks. Call your doctor if your incision/area has: Continuous Slow Oozing, Sudden Increased Bleeding, Increased Pain/ Swelling, Increased Redness, Foul Smelling Discharge Call your doctor if you observe: Fever of 101 or Higher, Inability to urinate, Inability to have a bowel movement, Using more than one pad per hour, Shortness of breath, Chest pain, Increased palpitations (irregular heartbeat), Calf discomfort, Uncontrolled pain Additional Instructions: If you experience any of the following, contact your healthcare provider. * Bleeding that soaks a pad every hour for 2 hours * Fever 100.4 or higher * Unrelieved incision or abdominal pain * Swelling, redness, discharge or bleeding from your incision or episiotomy site * Your incision begins to separate * Problems urinating (including inability to urinate or burning while urinating). * Visual changes * Severe headache * Flu-like symptoms * Pain or redness in one of both of your breasts * Pain, warmth, tenderness or swelling in your legs, especially the calf area * Frequent nausea and vomiting * Symptoms of depression or anxiety If you experience any of the following, call 911 or go to the nearest Emergency Room. * Chest pain * Problems breathing * Seizure activity * Partial or complete paralysis of a body part, slurred speech, weakness or drooping of the face, or a sudden inability to walk or hold your balance Allergies/Adverse Reactions: Allergies No Known Allergies Allergy (Verified 10/09/19 00:45) Medications to take at Discharge Vits [Prenatabs FA ] 1 tablet PO DAILY 05/09/18 Ferrous Sulfate 325 mg PO BID 30 Days #60 tab 10/10/19 Ibuprofen [Motrin] 600 mg PO Q6H PRN PRN tablet 10/10/19 The following prescriptions were given: Ferrous Sulfate 325 mg PO BID 30 Days #60 tab Transmission Status: Pending to [id number] Please Follow Up With: Chaya Fermin CNM When: Call to make an appointment with your doctor in 6 weeks. If you had elevated Blood Pressure or 4th degree laceration you will need to be seen in 2 weeks. Primary Care Physician: Ze Pugh DO [Primary Care Provider] - Test Results: Test results from this visit will be discussed in further detail at your follow- up appointment, if applicable.
[2019-10-10] MEDS: Acetaminophen 500 MG Tablet 1000 MG PO (13:44)
[2019-10-10 14:00] VITALS: BP 114/74; PULSE 78; RESP 18; TEMP 36.7
[2019-10-10 20:30] VITALS: BP 95/64; PULSE 74; RESP 16; TEMP 37; O2SAT 97
[2019-10-11] MEDS: Ibuprofen 600 MG Tablet PO ×2 (00:44→09:23)
[2019-10-11 02:36] VITALS: BP 97/65; PULSE 77; RESP 16; TEMP 36.8
[2019-10-11] MEDS: Acetaminophen 500 MG Tablet 1000 MG PO (07:03)
[2019-10-11 07:47] VITALS: BP 123/84; PULSE 77; RESP 16; TEMP 36.7
--- NOTE | 2019-10-11 08:53 | PN.OBGYN_ITS ---
Patient Problems: Active and Suspected Problems (Last Updated 05/09/18 @ 16:[address] Carla Bajwa MD) Active labor at term (Acute) History of depression (Acute) Exposure to genital herpes (Acute) Short interval between pregnancies affecting , antepartum (Acute) PCOS (polycystic ovarian syndrome) (Acute) Vaginal delivery (Acute) Subjective: pt seen at bedside, doing well. pt reports good pain control. lochia mild. breast feeding. - Physical Exam Vitals/I&O's: Vital Signs Temp Pulse Resp BP Pulse Ox 98.0 F 77 16 123/84 H 97 10/11/19 07:47 10/11/19 07:47 10/11/19 07:47 10/11/19 07:47 10/10/19 20:30 Oxygen Delivery Method Room Air Weight: 82.554 kg Body Mass Index (BMI) 32.2 Intake and Output for Last 24 Hours 10/09/19 10/10/19 10/11/19 23:59 23:59 23:59 Intake Total 3640.32 / 3640.32 Output Total 1150 / 1150 Balance 2490.32 / 2490.32 General: Alert, Oriented x3 Abdomen: Soft, Non Tender, Non-Distended, - - fundus firm Extremities: No Calf Tenderness Current Medications Acetaminophen (Tylenol) 1,000 mg PO Q8H PRN PRN PRN Reason: Pain Score 1-3/10 Last Admin: 10/11/19 07:03 Dose: 1,000 mg Documented by: Bisacodyl (Dulcolax) 10 mg RECTAL UD PRN PRN Reason: If no BM Dibucaine (Dibucaine) 1 applic TOPICAL TID PRN PRN; Protocol PRN Reason: Discomfort Hydrocortisone (Hytone) 1 applic TOPICAL TID PRN PRN; Protocol PRN Reason: Discomfort Ibuprofen (Motrin) 600 mg PO Q6H PRN PRN PRN Reason: Pain Score 1-3/10 Last Admin: 10/11/19 00:44 Dose: 600 mg Documented by: Methylergonovine Maleate (Methergine) 0.2 mg IM X1 PRN PRN Reason: Excess bleeding/uterine atony Ondansetron HCl (Zofran) 4 mg IV Q4H PRN PRN PRN Reason: Nausea Senna/Docusate Sodium (Senokot-S, Monie-Colace) 1 - 2 tablet PO DAILY PRN PRN PRN Reason: Constipation Simethicone (Mylicon) 80 mg PO PCHS PRN PRN Reason: Indigestion/Stomach pain Last Admin: 10/09/19 11:54 Dose: 80 mg Documented by: Sodium Chloride () 5 - 15 ml IV UD PRN PRN Reason: SALINE FLUSH Last Admin: 10/09/19 11:24 Dose: 10 ml Documented by: Medical Necessity - Tobacco Use Smoking Status: Never smoker Assessment/Plan All Active Problems (Last Updated 05/09/18 @ 16:[address] Carla Garcia MD) Active labor at term (Acute) History of depression (Acute) Exposure to genital herpes (Acute) Short interval between pregnancies affecting , antepartum (Acute) PCOS (polycystic ovarian syndrome) (Acute) Vaginal delivery (Acute) PPD#2, doing well routine care pain mgmt dc home
== END 2019-10-11 09:55 | disposition home or self-care (01) | DRG 807 ==
LOC: WPOUT 00:55 → WP 00:55
PROVIDERS: Admitting Provider Advanced Practice Midwife; PCP Student in an Organized Health Care Education/Training Program; Visit Provider Advanced Practice Midwife
DX: O34.80 Maternal care for other abnormalities of pelvic organs, unspecified trimester (principal); Z37.0 Single live birth; E28.2 Polycystic ovarian syndrome; Z20.2 Contact with and (suspected) exposure to infections with a predominantly sexual mode of transmission; Z3A.39 39 weeks gestation of pregnancy; O77.0 Labor and delivery complicated by meconium in amniotic fluid
CPT/HCPCS: 59025; 59050; 85025; 85027; 86850; 86900; 86901; 99218; J7120; A4216; G0378

== ENCOUNTER 2024-10-16 16:15 | Outpatient (CLI) | payer OTHER, SELFPAY ==
[2024-10-16] VITALS (7 sets, daily range): BP systolic 113–133; BP diastolic 65–71; PULSE 74–88; O2SAT 100; BMI 35.9
[2024-10-16 16:42] LABS: Mucous, Urine 0 SEEN /hpf (<or=2+)
[2024-10-16 16:43] LABS: Hematocrit 31.5 % (37-47); Hemoglobin 10.5 g/dL (12.0-15.0); Mean Corp Hgb Conc 33.3 g/dL (32-36); Mean Corpuscular Hgb 29.5 pg (27.0-32.0); Mean Corpuscular Volume 88.5 fL (81-99); Mean Platelet Vol. 9.9 fl (6.2-12.0); Platelet Count 221 K/mm3 (150-450); RBC Distribution Width CV 14.6 % (11.6-14.6); RBC Distribution Width SD 47.3 fl (35.1-43.9); Red Blood Count 3.56 M/mm3 (4.2-5.4); White Blood Count 10.1 K/mm3 (4.4-11.0)
[2024-10-16 16:44] LABS: Color, Urine Straw (Yellow); Glucose, Dipstick Normal (Normal); Ketone-Dipstick Negative (Negative); Leukocyte Esterase-Dipstick 500 /ul (Negative); Nitrite-Dipstick Negative (Negative); Occult Blood-Urine 10 /ul (Negative); Protein-Dipstick 30 mg/dl (Negative); Specific Gravity, Urine 1.015 (1.002-1.030); Urine Bilirubin Dipstick Negative (Negative); Urine Clarity Cloudy (Clear); Urine Urobilinogen Normal (Normal); Urine pH 6.5 (5.0 - 8.0)
[2024-10-16 16:58] LABS: Bacteria 4+ /hpf (None Seen); Red Blood Cells-Urine 0-5 SEEN /hpf (0-5); Squamous Epithelial Cells - UA 10-25 SEEN /hpf (5-10); White Blood Cells 10-25 SEEN /hpf (0-5)
[2024-10-16 17:04] LABS: AST(SGOT) 14 U/L (<=31); Alanine Aminotransfer ALT/SGPT 8 U/L (<=34); Creatinine, Serum 0.53 mg/dL (0.70-1.20); EST Glomerular Filtration Rate 124 (>60); Uric Acid 2.2 mg/dL (2.6-6.0)
[2024-10-16 17:08] LABS: Protein, Urine (Random) 13.4 mg/dL (0.0-12.0); Protein:Creat Ratio 101 mg/g CRE (0-200)
[2024-10-16] MEDS: Nitrofurantoin Macrocrystals 100 MG Capsule PO (17:57)
--- NOTE | 2024-10-16 20:24 | OB.TRI.NOTE ---
HPI - General HPI Narrative BRYCE WILSON, is a 34 F at 26.6 weeks gestation who presents to triage with nausea, dizziness and a headache that won't go away. Denies any loss of fluid or vaginal bleeding. Positive movements. Stated has not been able to eat or drink much this weekend. Maternal Data Information DIDIER Calculator Estimated Delivery Date Method Current WG Current Estimate 01/16/25 Manual 26w 6d [facility] Medical History (Updated 10/16/24 @ 20:30 by Marybeth Escamilla CNM) PCOS (polycystic ovarian syndrome) Home Medications ?Medication ?Instructions ?Recorded ?Last Taken ?Type vits,calcium no.78-iron 1 tab PO DAILY 05/09/18 10/08/19 08:00 History fumarate-folic acid 29 mg-1 mg tablet (Prenatabs FA) ibuprofen 600 mg tablet 600 mg PO Q6H PRN PRN Pain Score 10/10/19 Unknown Rx 1-08/02 Allergy/AdvReac Type Severity Reaction Status Date / Time No Known Allergies Allergy Verified 10/09/19 00:45 Social History Smoking Status: Never smoker History Elective abortions Hx Para 1 Spontaneous abortions Hx # Term Pregnancies Ectopic pregnancies Hx # Pregnancies Multiple births # of living children ROS Eyes Eyes: Denies blurry vision Cardiovascular Cardiovascular: Reports none; Denies chest pain at rest, chest pain with activity or dizziness Respiratory/Chest Respiratory/Chest: Denies cough or dyspnea Gastrointestinal Gastrointestinal: Reports none and other; Denies diarrhea or vomiting Genitourinary Genitourinary: Denies dysuria Musculoskeletal Musculoskeletal: Reports none Integumentary Integumentary: Reports none; Denies rash Neurologic Neurologic: Denies headache(s) or other visual disturbances Psychiatric Psychiatric: Reports none Physical Exam Const alert and no apparent distress General Appearance: cooperative Orientation / Consciousness: awake Exam Limitations: no limitations HEENT normocephalic Eyes General Eye: normal appearance of both eyes Neck full ROM Chest inspection of chest normal Resp normal respiratory effort and normal air movement Effort and Inspection: symmetric chest movement Auscultation: clear to auscultation bilaterally Cardio regular rate GI soft to palpation, non-tender and non-distended Inspection: and other Back/Spine normal ROM Extremity full ROM, normal capillary refill and no calf tenderness Skin no rashes or lesions noted Neuro oriented x3 and CN's II-XII intact bilaterally Psych mental status grossly normal Assessment & Plan (1) 26 weeks gestation of : (2) Nausea: (3) Dizziness: (4) Headache: PLAN: Plan Vital signs stable Taking PO UA - POSITIVE for blood, protein, leuk. estrace, and bacteria Labs within normal ranges Start Macrobid 100 mg PO BID x 7 days Send urine for culture Taking PO Desires d/c home with follow up in office
--- NOTE | 2024-10-16 20:32 | DCINST_ITS ---
Discharge Instructions DC O2, CPAP, BIPAP needs Home O2 Discharge instructions: No Follow Up Care Test Results: Test results from this visit will be discussed in further detail at your follow- up appointment, if applicable. Discharge Plan Admission Reason For Visit: RULE OUR PRE-E Attending Provider: Marybeth Escamilla Primary Care Provider: Ze Pugh Discharge Orders/Prescriptions Prescriptions: New nitrofurantoin monohyd/m-cryst [Macrobid] 100 mg capsule 100 mg PO BID Qty: 14 0RF Rx Instructions: Take medication with food to help with GI upset Finish all of medication No Action vit,[id number] [Prenatabs FA] 1 TABLET tablet 1 tab PO DAILY ibuprofen 600 MG tablet 600 mg PO Q6H PRN PRN (Reason: Pain Score 1-3/10) 0RF Referrals / Follow Up: Ze Pugh DO [Primary Care Provider] - Disposition Patient Disposition: Home, Self Care
== END 2024-10-16 18:10 | disposition home or self-care (01) ==
LOC: WPOUT 16:21 → WP 16:22
PROVIDERS: PCP Student in an Organized Health Care Education/Training Program; Referring Provider Advanced Practice Midwife; Visit Provider Advanced Practice Midwife
DX: O99.891 Other specified diseases and conditions complicating pregnancy (principal); R11.0 Nausea; R42 Dizziness and giddiness; R51.9 Headache, unspecified; Z3A.26 26 weeks gestation of pregnancy
CPT/HCPCS: 36415; 59025; 59050; 81001; 82565; 82570; 84156; 84450; 84460; 84550; 85027; 87086; 87088; 99221; G0378

== ENCOUNTER 2025-01-06 00:59 | Inpatient (IN) | payer SELFPAY, OTHER ==
[2025-01-06] VITALS (74 sets, daily range): BP systolic 86–176; BP diastolic 51–113; PULSE 67–162; RESP 14–16; TEMP 36.1–37.2; O2SAT 81–100; BMI 37.0
--- OUTSIDE RECORDS SUMMARY | 2025-01-06 00:13 | XMS RPT_ITS | CCD ---
Author Organization [facility] Care Team Providers Care Family Welfare Social Work Professor Name Role Phone Ze Pugh DO Primary Care Provider Ze Pugh DO Primary Care Provider Brown GENERAL MATCHER.Radha ESTES Unavailable [facility] GENERAL MATCHER.Lacey ESTES Unavailable Brown GENERAL MATCHER.Radha ESTES Unavailable MOSES CARUSO Attending Unavailable PUGH, ZE L Primary Care Unavailable PUGH, ZE L Primary Care Unavailable Jakob GENERAL MATCHER.Augustina ESTES Unavailable Marybeth Escamilla Referring Unavailable Marybeth Escamilla Attending Unavailable Pugh, Ze Primary Care Unavailable FERMIN, CHAYA Referring Unavailable PUGH, ZE L Primary Care Unavailable TRACIE KOVACS Attending Unavailable FERMIN, CHAYA Attending Unavailable PUGH, ZE L Primary Care Unavailable PUGH, ZE L Primary Care Unavailable FERMIN, CHAYA Attending Unavailable FERMIN, CHAYA Referring Unavailable PUGH, ZE L Primary Care Unavailable LAINE MCCOLLUM Attending Unavailable FERMIN, CHAYA Referring Unavailable PUGH, ZE L Primary Care Unavailable FERMIN, CHAYA Attending Unavailable PUGH, ZE L Primary Care Unavailable FERMIN, CHAYA Attending Unavailable PUGH, ZE L Primary Care Unavailable FERMIN, CHAYA Attending Unavailable PUGH, ZE L Primary Care Unavailable PUGH, ZE L Primary Care Unavailable FERMIN, CHAYA Referring Unavailable FERMIN, CHAYA Referring Unavailable PUGH, ZE L Primary Care Unavailable FERMIN, CHAYA Referring Unavailable PUGH, ZE L Primary Care Unavailable PUGH, ZE L Primary Care Unavailable FERMIN, CHAYA Attending Unavailable PUGH, ZE L Primary Care Unavailable FERMIN, CHAYA Referring Unavailable ZE PUGH Primary Care Unavailable ZANDERREECECHAYA Attending Unavailable ZANDER CHAYA Referring Unavailable ZE PUGH Primary Care Unavailable ZANDER CHAYA Attending Unavailable ZE PUGH Primary Care Unavailable FERMINSHALACHAYA Attending Unavailable ZE PUGH Primary Care Unavailable FERMIN, CHAYA Referring Unavailable SHALA FERMINSSICA Attending Unavailable ZANDER CHAYA Referring Unavailable ZE PUGH Primary Care Unavailable ZANDERSHALACHAYA Referring Unavailable ZE PUGH Primary Care Unavailable ZE PUGH Primary Care Unavailable FERMIN, CHAYA Referring Unavailable ZANDER CHAYA Referring Unavailable ZE PUGH Primary Care Unavailable ZANDERREECECHAYA Referring Unavailable ZE PUGH Primary Care Unavailable ZE PUGH Primary Care Unavailable FERMINREECECHAYA Referring Unavailable Medications Current Medications Medication Drug Class(es) Dates Sig (Normalized) Sig (Original) acyclovir 400 mg oral tablet (15 sources) Herpesvirus Nucleoside Analog DNA Polymerase Inhibitor, Herpes Simplex Virus Nucleoside Analog DNA Polymerase Inhibitor, Herpes Zoster Virus Nucleoside Analog DNA Polymerase Inhibitor Start: 10-25-2024 take 1 tablet by mouth three times daily acyclovir (ZOVIRAX) 400 mg tablet Take 1 tablet by mouth three times a day. 90 tablet 4 10/25/2024 Active amoxicillin 875 mg / clavulanate 125 mg oral tablet (2 sources) Penicillin-class Antibacterial Start: 08-31-2021 End: 09-05-2021 take 1 tablet by mouth twice daily amoxicillin-clavulan ic acid (AUGMENTIN) 875-125 mg per tablet Indications: Acute rhinosinusitis Take 1 tablet by mouth twice daily for 5 days. 10 tablet 0 08/31/2021 09/05/2021 Active Comment on above: Take 1 tablet by luna th twice daily for 5 days. ascorbic acid 500 mg oral tablet (13 sources) Vitamin C Start: 10-26-2024 take 1 tablet by mouth every other day ascorbic acid, vitamin C, (VITAMIN C) 500 mg tablet Indications: Anemia during in third trimester (HCC) Take 1 tablet by mouth every other day. 30 tablet 3 10/26/2024 Active aspirin 81 mg delayed release oral tablet (20 sources) Platelet Aggregation Inhibitor, Nonsteroidal Anti-inflammatory Drug Start: 07-07-2024 End: 08-30-2024 take 1 tablet by mouth once daily aspirin, enteric coated (ECOTRIN LOW STRENGTH) 81 mg EC tablet Indications: Supervision of other high risk pregnancies, second trimester ([facility]) , 12 weeks gestation of ([facility]) Take 1 tablet by mouth once daily. 90 tablet 3 08/30/2024 Active benoxinate hydrochloride 4 mg/ml / fluorescein sodium 3 mg/ml ophthalmic solution (2 sources) Diagnostic Dye Start: 01-01-2024 End: 01-01-2024 fluorescein-benoxina te 0.3-0.4 % 1 Drop (FLURESS) cyclobenzaprine hydrochloride 5 mg oral tablet (20 sources) Muscle Relaxant Start: 08-02-2024 take 1 tablet by mouth three times daily cyclobenzaprine (FLEXERIL) 5 mg tablet Take 1 tablet by mouth three times a day. 30 tablet 08/02/2024 Active ergocalciferol, vitamin D2, (VITAMIN D2 ORAL) (20 sources) ergocalciferol, vitamin D2, (VITAMIN D2 ORAL) Indications: Supervision of other high risk pregnancies, second trimester (HCC) , 12 weeks gestation of ([facility]) Take by mouth. Active ergocalciferol, vitamin D2, (VITAMIN D2 ORAL) Indications: Supervision of other high risk pregnancies, second trimester , 12 weeks gestation of Take by mouth. Active ergocalciferol, vitamin D2, (VITAMIN D2 ORAL) Take by mouth. Active famotidine 40 mg oral tablet (20 sources) Histamine-2 Receptor Antagonist Start: 09-27-2024 End: 03-26-2025 take 1 tablet by mouth once daily famotidine (PEPCID) 40 mg tablet Take 1 tablet by mouth once daily. 30 tablet 4 09/27/2024 03/26/2025 Active ferrous sulfate 325 mg oral tablet (13 sources) Start: 10-26-2024 take 1 tablet by mouth every other day ferrous sulfate 325 mg (65 mg iron) tablet Indications: Anemia during in third trimester ([facility]) Take 1 tablet by mouth every other day. 30 tablet 3 10/26/2024 Active isopropyl alcohol 0.7 ml/ml medicated pad (12 sources) Start: 10-27-2024 alcohol swabs (ALCOHOL PREP PADS) Indications: Diet controlled gestational diabetes mellitus (GDM) in third trimester ([facility]) Use as directed to check glucose levels up to seven times daily. 200 each 8 10/27/2024 Active iv contrast (will be provided with radiology test) (1 source) Start: 05-14-2022 End: 05-15-2022 iv contrast (will be provided with radiology test) Indications: Primary dysmenorrhea , Pelvic and perineal pain , Deep dyspareunia MRI Female Pelvis Inject, intravenously, once for 1 dose. No IV access, insert saline lock prior to the beginning of sedation, infusion, injection of imaging exam. Discontinue saline lock post exam. If Pt has a central line or IVAD, may access for administration according to line specific nursing protocol. Once exam is complete flush line and de-access according to line specific nursing protocol in the MR contrast administration guidelines link. 1 Each 0 05/14/2022 05/15/2022 Active Comment on above: MRI Female Pelvis In ject, intravenously, once for 1 dose. No IV access, insert saline lock prior to the beginning of sedation, infusion, injection of imaging exam. Discontinue saline lock post exam. If Pt has a central line or IVAD, may access for administration according to line specific nursing protocol. Once exam is complete flush line and de-access according to line specific nursing protocol in the MR contrast administration guidelines link. ofloxacin 3 mg/ml ophthalmic solution (1 source) Quinolone Antimicrobial Start: 02-28-2022 End: 03-07-2022 take 1 drop(s) into the eye(s) four times daily ofloxacin (OCUFLOX) 0.3 % ophthalmic solution Indications: Corneal irritation of right eye Use 1 Drop in the right eye four times daily for 7 days. 5 mL 0 02/28/2022 03/07/2022 Active Comment on above: Use 1 Drop in the ri ght eye four times daily for 7 days. PNV no.95/ferrous fum/folic ac ( ORAL) (20 sources) PNV no.95/ferrou s fum/folic ac ( ORAL) Take by mouth. Active Wjunlsqb-Ny-Xxs-Fe- FA tab (20 sources) Start: 08-30-2024 take 1 tablet by mouth once daily Pzywegce-Yo-Vjh-Fe- FA tab Take 1 tablet by mouth once daily. With 1 gram folic acid and DHA as covered by insurance. 90 tablet 3 08/30/2024 Active proparacaine hydrochloride 5 mg/ml ophthalmic solution (2 sources) Local Anesthetic Start: 01-01-2024 End: 01-01-2024 proparacaine 0.5 % 1 Drop (ALCAINE) riboflavin 100 mg oral tablet (20 sources) Start: 08-03-2024 End: 01-17-2025 take 2 tablets by mouth once daily riboflavin, vitamin B2, (VITAMIN B-2) 100 mg tab Take 2 tablets by mouth once daily. 60 tablet 2 10/19/2024 01/17/2025 Active Completed/Discontinued Medications Medication Drug Class(es) Dates Sig (Normalized) Sig (Original) baclofen vaginal suppository 10 mg (CPD) (8 sources) Start: 05-14-2022 End: 01-09-2023 baclofen vaginal suppository 10 mg (CPD) Indications: Primary dysmenorrhea , Deep dyspareunia , Chronic pelvic pain in female Unwrap and insert 1 Suppository vaginally daily at bedtime as directed. 30 Suppository 2 05/14/2022 01/09/2023 Discontinued Start: 05-14-2022 baclofen vagin al suppository 10 mg (CPD) Indications: Primary dysmenorrhea , Deep dyspareunia , Chronic pelvic pain in female Unwrap and insert 1 Suppository vaginally daily at bedtime as directed. 30 Suppository 2 05/14/2022 Active Start: 05-14-2022 baclofen vagin al suppository 10 mg (CPD) Indications: Primary dysmenorrhea , Deep dyspareunia , Chronic pelvic pain in female Use 1 Suppository vaginally daily at bedtime. Unwrap and insert one suppository as directed. 30 Suppository 2 05/14/2022 Active Comment on above: Use 1 Suppository va ginally daily at bedtime. Unwrap and insert one suppository as directed. Unwrap and insert 1 Suppository vaginally daily at bedtime as directed. Blood-Glucose Meter (1 source) Start: 10-28-19 End: 10-29-19 Blood-Glucose Meter Indications: Diet controlled gestational diabetes mellitus (GDM) in third trimester (HCC) Use as directed to check glucose levels up to seven times daily. 1 each 10/27/2024 10/28/2024 cyproheptadine hydrochloride 4 mg oral tablet (17 sources) Start: 08-04-19 End: 11-02-19 take 1 tablet by mouth every twelve hours as needed cyproheptadine (PERIACTIN) 4 mg tablet Take 1 tablet by mouth every 12 hours as needed. 30 tablet 2 08/03/2024 11/01/2024 FLUoxetine 20 mg oral capsule (20 sources) Serotonin Reuptake Inhibitor Start: 01-10-20 End: 07-07-19 take 1 capsule by mouth once daily FLUoxetine (PROZAC) 10 mg capsule Indications: Anxiety and depression Take 1 capsule by mouth once daily. With 20 mg capsule to total 30 mg a day 90 capsule 3 06/24/2023 07/07/2024 Discontinued (Course of therapy completed) Start: 05-28-2022 End: 07-07-2024 take 1 capsule by mouth once daily FLUoxetine (PROZAC) 20 mg capsule Indications: Anxiety and depression Take 1 capsule by mouth once daily. With 10 mg capsule to total 30 mg a day 90 capsule 3 06/24/2023 07/07/2024 Discontinued (Course of therapy completed) Start: 04-26-2022 End: 05-28-2022 take 1 tablet by mouth once daily in the morning FLUoxetine 10 mg tablet Indications: Anxiety and depression Take 1 tablet by mouth once daily. In the morning 30 tablet 3 04/26/2022 05/28/2022 Discontinued Comment on above: Take 1 tablet by luna th once daily. In the morning Take 1 capsule by mo ut once daily. metFORMIN hydrochloride 500 mg oral tablet (20 sources) Biguanide Start: End: take 1 tablet by mouth three times daily at mealtime metFORMIN (GLUCOPHAGE) 500 mg tablet Indications: PCOS (polycystic ovarian syndrome) Take 1 tablet by mouth three times a day with meals. 90 tablet 06/14/2023 07/07/2024 Discontinued (Course of therapy completed) Start: 09-30-2022 take 1 tablet by luna th three times daily at mealtime metFORMIN (GLUCOPHAGE) 500 mg tablet Indications: PCOS (polycystic ovarian syndrome) Take 1 tablet by mouth three times daily with meals. 90 tablet 11 09/30/2022 Active Start: 12-07-2020 End: 09-30-2022 take 1 tablet by mouth three times daily metFORMIN ER (GLUCOPHAGE XR) 500 mg 24 hr tablet Indications: History of PCOS TAKE 1 TABLET BY MOUTH 3 TIMES DAILY 90 tablet 6 11/05/2021 09/30/2022 Discontinued Comment on above: Take 1 tablet by luna th three times daily. TAKE 1 TABLET BY LUNA TH 3 TIMES DAILY Take 1 tablet by luna th three times daily with meals. omeprazole 20 mg delayed release oral capsule (20 sources) Proton Pump Inhibitor Start: 2 End: 3 take 2 capsules by mouth once daily omeprazole (PRILOSEC) 20 mg capsule Take 2 capsules by mouth once daily. 60 capsule 5 06/08/2022 01/09/2023 Discontinued Start: 04-23-2021 End: 12-07-2021 take 2 capsules by mouth once daily omeprazole (PRILOSEC) 20 mg capsule TAKE 2 CAPSULES BY MOUTH ONCE DAILY 60 capsule 2 08/22/2021 12/07/2021 Discontinued Comment on above: Take 2 capsules by m outh once daily. TAKE 2 CAPSULES BY M OUTH ONCE DAILY polyethylene glycol 3350 075975 mg / potassium chloride 2970 mg / sodium bicarbonate 6740 mg / sodium chloride 5860 mg / sodium sulfate 69657 mg powder for oral solution (3 sources) Osmotic Laxative Start: 04-23-20 End: 09-01-19 22 peg 3350-Electrolytes (GOLYTELY) 236-22.74-6.74 -5.86 gram suspension Indications: Weight loss , Bloating , Diarrhea, unspecified type Refer to printed prep instructions from your provider. 4000 mL 0 04/23/2021 08/31/2021 Discontinued (Course of therapy completed) Comment on above: Refer to printed pre p instructions from your provider. rizatriptan 10 mg disintegrating oral tablet (20 sources) Serotonin-1b and Serotonin-1d Receptor Agonist Start: 06-14-19 End: 08-31-19 25 take 1 tablet by mouth every two hours as needed rizatriptan (MAXALT-SUPERVISOR ROD PLACING) 10 mg disintegrating tablet Indications: Other migraine without status migrainosus, not intractable Take 1 tablet (10 mg) by mouth as needed. May repeat in 2 hours if needed 12 tablet 06/14/2023 08/30/2024 Discontinued (Course of therapy completed) Start: 01-16-2021 End: 05-28-2022 take 1 tablet by mouth every two hours as needed rizatriptan (MAXALT-SUPERVISOR ROD PLACING) 10 mg disintegrating tablet Indications: Other migraine without status migrainosus, not intractable Take 1 tablet by mouth as needed. May repeat in 2 hours if needed 12 tablet 3 05/28/2022 Active Comment on above: Take 1 tablet by luna th as needed. May repeat in 2 hours if needed Surgical Lubricant Jelly gel (8 sources) Start: 05-14-2022 End: 01-09-2023 Surgical Lubricant Jelly gel Indications: Primary dysmenorrhea , Pelvic and perineal pain , Deep dyspareunia For MRI Female Pelvis, MRI department to provide. Administer intra-vaginal Surgilube immediately prior the MRI procedure (total amount to patient toleranace). 5 g 0 05/14/2022 01/09/2023 Discontinued Start: 05-14-2022 Surgical Lubri cant Jelly gel Indications: Primary dysmenorrhea , Pelvic and perineal pain , Deep dyspareunia For MRI Female Pelvis, MRI department to provide. Administer intra-vaginal Surgilube immediately prior the MRI procedure (total amount to patient toleranace). 5 g 0 05/14/2022 Active Comment on above: For MRI Female Pelvi s, MRI department to provide. Administer intra-vaginal Surgilube immediately prior the MRI procedure (total amount to patient toleranace). tetracaine hydrochloride 5 mg/ml ophthalmic solution (1 source) Feli Local Anesthetic Start: 02-28-2022 End: 02-28-2022 tetracaine (PF) 0.5 % 1 Drop (OPTICAINE) Start: 02-28-2022 End: 02-28-2022 tetracaine (PF) 0.5 % 1 Drop (OPTICAINE) traZODone hydrochloride 50 mg oral tablet (7 sources) Serotonin Reuptake Inhibitor Start: 05-28-2022 End: 01-09-2023 take 1 tablet by mouth once daily at bedtime as needed traZODone (DESYREL) 50 mg tablet Indications: Situational insomnia Take 1 tablet by mouth daily at bedtime. Prn for insomnia 30 tablet 1 05/28/2022 01/09/2023 Discontinued Comment on above: Take 1 tablet by luna th daily at bedtime. Prn for insomnia Problems Active Problems Problem Classification Problem Date Documented Date Episodic/Chronic Abdominal pain (5 sources) Pain in female pelvis; Translations: [Pelvic and perineal pain] Episodic Anxiety disorders (20 sources) Mixed anxiety and depressive disorder; Translations: [Anxiety disorder, unspecified] Onset: 05-28-2022 Chronic Bacterial infection; unspecified site (4 sources) Bacteria present; Translations: [Streptococcus, group B, as the cause of diseases classified elsewhere] Onset: 12-31-2024 01-03-2025 Episodic Diabetes or abnormal glucose tolerance complicating ; childbirth; or the puerperium (20 sources) Gestational diabetes mellitus; Translations: [Gestational diabetes mellitus in , diet controlled] Onset: 10-26-2024 11-01-2024 Episodic Disorders of lipid metabolism (1 source) Hyperlipidemia; Translations: [Hyperlipidemia, unspecified] 01-09-2023 Chronic Genitourinary symptoms and ill-defined conditions (1 source) Female stress incontinence; Translations: [Stress incontinence (female) (male)] Chronic Headache; including migraine (20 sources) Migraine; Translations: [Other migraine, not intractable, without status migrainosus] Onset: 05-28-2022 Chronic Headache; including migraine (2 sources) Headache; Translations: [Headaches] 08-02-2024 Episodic Joint disorders and dislocations; trauma-related (20 sources) Chondromalacia of patella; Translations: [Chondromalacia patellae, unspecified knee] Onset: 12-17-2010 12-17-2010 Chronic Menstrual disorders (3 sources) Dysmenorrhea; Translations: [Dysmenorrhea, unspecified] Chronic Miscellaneous mental health disorders (20 sources) Insomnia; Translations: [Other insomnia not due to a substance or known physiological condition] Onset: 05-28-2022 Chronic Mood disorders (1 source) Mood disorders; Translations: [Anxiety and depression] Onset: 05-28-2022 Nausea and vomiting (1 source) Nausea; Translations: [Nausea] Onset: 12-15-2024 Episodic Nutritional deficiencies (1 source) Vitamin D deficiency; Translations: [Vitamin D deficiency, unspecified] 01-09-2023 Chronic Other complications of ; puerperium affecting management of mother (1 source) finding; Translations: [Maternal care for other (suspected) abnormality and damage, cardiac anomalies, not applicable or unspecified (HCC)] 09-27-2024 Episodic Other complications of (5 sources) Maternal obesity complicating , childbirth and the puerperium, antepartum; Translations: [Obesity complicating , third trimester] 09-07-2024 Chronic Other complications of (20 sources) Anemia of ; Translations: [Anemia complicating , third trimester] Onset: 10-26-2024 10-26-2024 Chronic Other complications of (1 source) Anemia complicating , third trimester; Translations: [Anemia during in third trimester (HCC)] Onset: 10-26-2024 Chronic Other complications of (1 source) Obesity complicating , third trimester; Translations: [Obesity affecting in third trimester, unspecified obesity type ([facility])] Onset: 10-25-2024 Chronic Other complications of (10 sources) Rubella non-immune; Translations: [Supervision of other high risk pregnancies, unspecified trimester] Onset: 12-06-2024 12-06-2024 Episodic Other complications of (1 source) Supervision of other high risk pregnancies, unspecified trimester; Translations: [Rubella non-immune status, antepartum ([facility])] Onset: 12-06-2024 Episodic Other endocrine disorders (20 sources) Polycystic ovary syndrome; Translations: [Polycystic ovarian syndrome] Onset: 09-10-2017 09-10-2017 Chronic Other endocrine disorders (1 source) Polycystic ovarian syndrome; Translations: [PCOS (polycystic ovarian syndrome)] Onset: 09-10-2017 Chronic Other eye disorders (2 sources) Disorder of lacrimal gland; Translations: [Dry eye syndrome of bilateral lacrimal glands] Episodic Other eye disorders (1 source) Disorder of cornea; Translations: [Other specified disorders of cornea, right eye] Episodic Other female genital disorders (2 sources) Deep pain on intercourse; Translations: [Deep dyspareunia] Chronic Other female genital disorders (1 source) Pelvic floor dysfunction; Translations: [Other specified conditions associated with female genital organs and menstrual cycle] Episodic Other female genital disorders (1 source) Vaginal discharge; Translations: [Other specified noninflammatory disorders of vagina] 07-16-2024 Episodic Other lower respiratory disease (1 source) Cough; Translations: [Cough] Episodic Other nervous system disorders (1 source) H/O: migraine; Translations: [Personal history of other diseases of the nervous system and sense organs] Episodic Other screening for suspected conditions (not mental disorders or infectious disease) (6 sources) Patient encounter status; Translations: [Encounter for screening for malformations] Onset: 10-25-2024 07-12-2024 Episodic Other upper respiratory infections (1 source) Acute rhinosinusitis; Translations: [Acute sinusitis, unspecified] Episodic Residual codes; unclassified (1 source) Treatment not available; Translations: [Procedure and treatment not carried out for other reasons] 04-29-2023 Episodic Residual codes; unclassified (1 source) Procedure not done; Translations: [Procedure and treatment not carried out, unspecified reason] 05-01-2023 Episodic Residual codes; unclassified (2 sources) Gestation period, 13 weeks; Translations: [13 weeks gestation of ] 07-12-2024 Episodic Residual codes; unclassified (5 sources) Gestation period, 12 weeks; Translations: [12 weeks gestation of ] 07-16-2024 Episodic Residual codes; unclassified (1 source) Gestation period, 16 weeks; Translations: [16 weeks gestation of ] 08-02-2024 Episodic Residual codes; unclassified (3 sources) Gestation period, 20 weeks; Translations: [20 weeks gestation of ] 08-30-2024 Episodic Residual codes; unclassified (1 source) Gestation period, 24 weeks; Translations: [24 weeks gestation of ] 09-27-2024 Episodic Residual codes; unclassified (1 source) 20 weeks gestation of ; Translations: [20 weeks gestation of (HCC)] Onset: 09-27-2024 Episodic Residual codes; unclassified (2 sources) Gestation period, 28 weeks; Translations: [28 weeks gestation of ] 10-25-2024 Episodic Residual codes; unclassified (1 source) Gestation period, 30 weeks; Translations: [30 weeks gestation of ] 11-08-2024 Episodic Residual codes; unclassified (2 sources) Gestation period, 32 weeks; Translations: [32 weeks gestation of ] 11-24-2024 Episodic Residual codes; unclassified (1 source) Gestation period, 34 weeks; Translations: [34 weeks gestation of ] 12-06-2024 Episodic Residual codes; unclassified (2 sources) Gestation period, 37 weeks; Translations: [37 weeks gestation of ] 12-27-2024 Episodic Residual codes; unclassified (1 source) Gestation period, 38 weeks; Translations: [38 weeks gestation of ] 01-03-2025 Episodic Residual codes; unclassified (1 source) 38 weeks gestation of ; Translations: [38 weeks gestation of (HCC)] Onset: 01-03-2025 Episodic Residual codes; unclassified (1 source) 37 weeks gestation of ; Translations: [37 weeks gestation of (HCC)] Onset: 12-27-2024 Episodic Residual codes; unclassified (1 source) 34 weeks gestation of ; Translations: [34 weeks gestation of (HCC)] Onset: 12-06-2024 Episodic Residual codes; unclassified (1 source) 32 weeks gestation of ; Translations: [32 weeks gestation of (HCC)] Onset: 11-24-2024 Episodic Residual codes; unclassified (1 source) 30 weeks gestation of ; Translations: [30 weeks gestation of (HCC)] Onset: 11-08-2024 Episodic Residual codes; unclassified (1 source) 24 weeks gestation of ; Translations: [24 weeks gestation of (HCC)] Onset: 10-25-2024 Episodic Residual codes; unclassified (1 source) 28 weeks gestation of ; Translations: [28 weeks gestation of (HCC)] Onset: 10-25-2024 Episodic Unclassified (20 sources) [facility] - [facility] Onset: 07-07-2024 07-07-2024 Unclassified (20 sources) Education - [place] Onset: 07-07-2024 07-07-2024 Unclassified (1 source) Rubella non-immune status, antepartum ([facility]); Translations: [Rubella non-immune status, antepartum ([facility])] Onset: 12-06-2024 Past or Other Problems Problem Classification Problem Date Documented Date Episodic/Chronic Blindness and vision defects (20 sources) Bilateral myopia of eyes; Translations: [Myopia, bilateral] Onset: 07-13-2012 Resolved: 04-27-2019 Episodic Immunizations and screening for infectious disease (20 sources) Contact with and (suspected) exposure to infections with a predominantly sexual mode of transmission; Translations: [Contact with or exposure to other viral diseases] Onset: 09-18-2017 03-03-2019 Episodic Malaise and fatigue (20 sources) Fatigue; Translations: [Other fatigue] Onset: 09-30-2022 Episodic Other complications of (20 sources) Finding of pattern of ; Translations: [Supervision of other high risk pregnancies, unspecified trimester] Onset: 02-11-2019 Resolved: 10-25-2019 10-25-2019 Episodic Other complications of (20 sources) Conceived by in vitro fertilization; Translations: [Supervision of resulting from assisted reproductive technology, first trimester] Onset: 07-12-2024 07-12-2024 Episodic Other complications of (20 sources) High risk ; Translations: [Supervision of other high risk pregnancies, unspecified trimester] Onset: 07-16-2024 07-12-2024 Episodic Other complications of (3 sources) Supervision of other high risk pregnancies, second trimester; Translations: [Supervision of other high risk pregnancies, second trimester (HCC)] Onset: 07-16-2024 Episodic Other complications of (1 source) Supervision of resulting from assisted reproductive technology, first trimester; Translations: [ resulting from in vitro fertilization in first trimester (HCC)] Onset: 09-27-2024 Episodic Other complications of (1 source) Supervision of high risk , unspecified, third trimester; Translations: [Supervision of high risk in third trimester (HCC)] Onset: 07-16-2024 Episodic Other complications of (1 source) Supervision of resulting from assisted reproductive technology, third trimester; Translations: [ resulting from in vitro fertilization in third trimester (HCC)] Onset: 09-27-2024 Episodic Other connective tissue disease (20 sources) Instability of pelvic floor; Translations: [Other specified disorders of muscle] Onset: 03-04-2018 03-04-2018 Episodic Other female genital disorders (20 sources) History of gynecological disorder; Translations: [Personal history of other diseases of the female genital tract] Onset: 07-12-2024 Episodic Other non-traumatic joint disorders (20 sources) Pain in left knee; Translations: [Pain in joint, lower leg] Onset: 03-04-2018 03-04-2018 Episodic Other non-traumatic joint disorders (20 sources) Pain in lower limb; Translations: [Pain in unspecified knee] Onset: 03-27-2006 Resolved: 04-27-2019 04-27-2019 Episodic Other and delivery including normal (20 sources) Normal ; Translations: [Encounter for supervision of normal first , first trimester] Onset: 11-04-2017 Resolved: 06-22-2018 06-22-2018 Episodic Residual codes; unclassified (1 source) 12 weeks gestation of ; Translations: [12 weeks gestation of (HCC)] Onset: 08-30-2024 Episodic Screening and history of mental health and substance abuse codes (20 sources) H/O: depression; Translations: [Personal history of other mental and behavioral disorders] Onset: 09-18-2017 02-11-2019 Episodic Spondylosis; intervertebral disc disorders; other back problems (20 sources) Acute low back pain; Translations: [Acute bilateral low back pain without sciatica] Onset: 11-29-2019 11-29-2019 Episodic Sprains and strains (20 sources) Injury of lower extremity; Translations: [Sprain and strain of unspecified site of knee and leg] Onset: 02-04-2007 Resolved: 04-27-2019 04-27-2019 Episodic Results Test Name Value Interpretation Reference Range Facil ity URINE OB DIP B/Oon 5 Glucose Ql (U) Negative Neg mg/dL [facility] Interpretation and review of laboratory results Normal [facility] Protein.monoclonal (U) [Mass/Vol] Negative Neg mg/dL [facility] Examination level ultrasound on 12-27-2024 [facility] Radiology Study observation (narrative) [facility] ROUTINE, GROUP B ST REPTOCOCCUS BY PCRon 12-27-2024 ROUTINE, GROUP B STREPTOCOCCUS BY PCR Detected Abnormal [facility] Comment on above: Performed By: #### G BPCR ####[facility] LABCLIA [id number] [place] [address] [place] URINE OB DIP B/Oon 5 Glucose Ql (U) Negative Neg mg/dL [facility] Protein.monoclonal (U) [Mass/Vol] Negative Neg mg/dL [facility] URINE OB DIP B/Oon 5 Glucose Ql (U) Negative Neg mg/dL [facility] Interpretation and review of laboratory results Normal [facility] Protein.monoclonal (U) [Mass/Vol] trace Neg mg/dL [facility] CBC W Auto Differential pane l (Bld)on 11-24-2024 Basophils (Bld) [#/Vol] 0.03 10*3/uL [facility] Basophils/100 WBC (Bld) 0.3 % [facility] Differential cell count method Nom (Bld) Auto [facility] Eosinophils (Bld) [#/Vol] 0.12 10*3/uL [facility] Eosinophils/100 WBC (Bld) 1 % [facility] Erythrocyte distribution width (RBC) [Ratio] 15 % 11.5 - 15.0 % [facility] Hematocrit (Bld) [Volume fraction] 32.6 % Low 36.0 - 46.0 % [facility] Hemoglobin (Bld) [Mass/Vol] 10.8 g/dL Low 11.5 - 15.5 g/dL [facility] Immature granulocytes (Bld) [#/Vol] 0.05 10*3/uL [facility] Immature granulocytes/100 WBC (Bld) 0.4 % [facility] Interpretation and review of laboratory results Abnormal [facility] Lymphocytes (Bld) [#/Vol] 2 10*3/uL [facility] Lymphocytes/100 WBC (Bld) 17.1 % [facility] MCH (RBC) [Entitic mass] 29 pg 26.0 - 34.0 pg [facility] MCHC (RBC) [Mass/Vol] 33.1 g/dL 30.5 - 36.0 g/dL [facility] MCV (RBC) [Entitic vol] 87.4 fL 80.0 - 100.0 fL [facility] Monocytes (Bld) [#/Vol] 0.56 10*3/uL [facility] Monocytes/100 WBC (Bld) 4.8 % [facility] Neutrophils (Bld) [#/Vol] 8.93 10*3/uL High [facility] Neutrophils/100 WBC (Bld) 76.4 % [facility] Nucleated RBC (Bld) [#/Vol] [facility] Nucleated RBC/100 WBC (Bld) [Ratio] 0 % /100 WBC [facility] Platelet mean volume (Bld) [Entitic vol] 10.2 fL 9.0 - 12.7 fL [facility] Platelets (Bld) [#/Vol] 201 10*3/uL [facility] RBC (Bld) [#/Vol] 3.73 10*6/uL Low 3.90 - 5.20 m/uL [facility] WBC (Bld) [#/Vol] 11.69 10*3/uL High [facility] Basophils (Bld) [#/Vol] 0.03 10*3/uL Normal <0.[address] [facility] Comment on above: Order Comment: Speci men Type: BLOOD SPECIMENOrdering Facility: [facility] Address: [address] [place] [address] Performed By: #### 5 7021-8 ####[facility] MILLTOWNCLIA [id number] [place] [address] [place] Basophils/100 WBC (Bld) 0.3 % Normal [facility] Comment on above: Order Comment: Speci men Type: BLOOD SPECIMENOrdering Facility: [facility] Address: [address] [place] [address] Performed By: #### 5 7021-8 ####[facility] PLACIDNCLIA [id number] [place] [address] [place] Differential cell count method Nom (Bld) Auto Normal [facility] Comment on above: Order Comment: Speci men Type: BLOOD SPECIMENOrdering Facility: [facility] Address: [address] [place] [address] Performed By: #### 5 7021-8 ####[facility] MILLTOWNCLIA [id number] [place] [address] [place] Eosinophils (Bld) [#/Vol] 0.12 10*3/uL Normal <0.[address] [facility] Comment on above: Order Comment: Speci men Type: BLOOD SPECIMENOrdering Facility: [facility] Address: [address] [place] [address] Performed By: #### 5 7021-8 ####[facility] PLACIDNCLIA [id number] [place] [address] [place] Eosinophils/100 WBC (Bld) 1.0 % Normal [facility] Comment on above: Order Comment: Speci men Type: BLOOD SPECIMENOrdering Facility: [facility] Address: [address] [place] [address] Performed By: #### 5 7021-8 ####[facility] BJHARTFESTUSDALTON [id number] [place] [address] [place] Erythrocyte distribution width (RBC) [Ratio] 15.0 % Normal 11.5-15.[address] [facility] Comment on above: Order Comment: Speci men Type: BLOOD SPECIMENOrdering Facility: [facility] Address: [address] [place] [address] Performed By: #### 5 7021-8 ####[facility] PLACIDFESTUSSALT [facility] [id number] [place] [address] [place] Hematocrit (Bld) [Volume fraction] 32.6 % Low 36.0-46.[address] [facility] Comment on above: Order Comment: Speci men Type: BLOOD SPECIMENOrdering Facility: [facility] Address: [address] [place] [address] Performed By: #### 5 7021-8 ####[facility] PLACIDFESTUSLIA [id number] [place] [address] [place] Hemoglobin (Bld) [Mass/Vol] 10.8 g/dL Low 11.5-15.[address] [facility] Comment on above: Order Comment: Speci men Type: BLOOD SPECIMENOrdering Facility: [facility] Address: [address] [place] [address] Performed By: #### 5 7021-8 ####[facility] PLACIDNCLIA [id number] [place] [address] [place] Immature granulocytes (Bld) [#/Vol] 0.05 10*3/uL Normal <0.[address] [facility] Comment on above: Order Comment: Speci men Type: BLOOD SPECIMENOrdering Facility: [facility] Address: [address] [place] [address] Performed By: #### 5 7021-8 ####[facility] PLACIDNCSALT [facility] [id number] [place] [address] [place] Immature granulocytes/100 WBC (Bld) 0.4 % Normal [facility] Comment on above: Order Comment: Speci men Type: BLOOD SPECIMENOrdering Facility: [facility] Address: [address] [place] [address] Performed By: #### 5 7021-8 ####[facility] [id number] [place] [address] [place] Lymphocytes (Bld) [#/Vol] 2.00 10*3/uL Normal 1.00-4.[address] [facility] Comment on above: Order Comment: Speci men Type: BLOOD SPECIMENOrdering Facility: [facility] Address: [address] [place] [address] Performed By: #### 5 7021-8 ####[facility] [id number] [place] [address] [place] Lymphocytes/100 WBC (Bld) 17.1 % Normal [facility] Comment on above: Order Comment: Speci men Type: BLOOD SPECIMENOrdering Facility: [facility] Address: [address] [place] [address] Performed By: #### 5 7021-8 ####[facility] [id number] [place] [address] [place] MCH (RBC) [Entitic mass] 29.0 pg Normal 26.0-34.[address] [facility] Comment on above: Order Comment: Speci men Type: BLOOD SPECIMENOrdering Facility: [facility] Address: [address] [place] [address] Performed By: #### 5 7021-8 ####[facility] ROSSNCLIA [id number] [place] [address] [place] MCHC (RBC) [Mass/Vol] 33.1 g/dL Normal 30.5-36.[address] [facility] Comment on above: Order Comment: Speci men Type: BLOOD SPECIMENOrdering Facility: [facility] Address: [address] [place] [address] Performed By: #### 5 7021-8 ####[facility] BJHARTNCLIA [id number] [place] [address] [place] MCV (RBC) [Entitic vol] 87.4 fL Normal 80.0-100.[address] [facility] Comment on above: Order Comment: Speci men Type: BLOOD SPECIMENOrdering Facility: [facility] Address: [address] [place] [address] Performed By: #### 5 7021-8 ####[facility] PLACIDNCLIA [id number] [place] [address] [place] Monocytes (Bld) [#/Vol] 0.56 10*3/uL Normal <0.[address] [facility] Comment on above: Order Comment: Speci men Type: BLOOD SPECIMENOrdering Facility: [facility] Address: [address] [place] [address] Performed By: #### 5 7021-8 ####[facility] P[facility] RIDGEWNCLIA [id number] [place] [address] [place] Monocytes/100 WBC (Bld) 4.8 % Normal [facility] Comment on above: Order Comment: Speci men Type: BLOOD SPECIMENOrdering Facility: [facility] Address: [address] [place] [address] Performed By: #### 5 7021-8 ####[facility] PLACIDNCLIA [id number] [place] [address] [place] Neutrophils (Bld) [#/Vol] 8.93 10*3/uL High 1.45-7.[address] [facility] Comment on above: Order Comment: Speci men Type: BLOOD SPECIMENOrdering Facility: [facility] Address: [address] [place] [address] Performed By: #### 5 7021-8 ####[facility] [id number] [place] [address] [place] Neutrophils/100 WBC (Bld) 76.4 % Normal [facility] Comment on above: Order Comment: Speci men Type: BLOOD SPECIMENOrdering Facility: [facility] Address: [address] [place] [address] Performed By: #### 5 7021-8 ####[facility] [id number] [place] [address] [place] Nucleated RBC (Bld) [#/Vol] 10*3/uL Normal <0.[address] [facility] Comment on above: Order Comment: Speci men Type: BLOOD SPECIMENOrdering Facility: [facility] Address: [address] [place] [address] Performed By: #### 5 7021-8 ####[facility] [id number] [place] [address] [place] Nucleated RBC/100 WBC (Bld) [Ratio] 0.0 /100 WBC Normal [facility] Comment on above: Order Comment: Speci men Type: BLOOD SPECIMENOrdering Facility: [facility] Address: [address] [place] [address] Performed By: #### 5 7021-8 ####[facility] [id number] [place] [address] [place] Platelet mean volume (Bld) [Entitic vol] 10.2 fL Normal 9.0-12.[address] [facility] Comment on above: Order Comment: Speci men Type: BLOOD SPECIMENOrdering Facility: [facility] Address: [address] [place] [address] Performed By: #### 5 7021-8 ####[facility] PLACIDNCLIA [id number] [place] [address] [place] Platelets (Bld) [#/Vol] 201 10*3/uL Normal 150-[address] [facility] Comment on above: Order Comment: Speci men Type: BLOOD SPECIMENOrdering Facility: [facility] Address: [address] [place] [address] Performed By: #### 5 7021-8 ####[facility] PLACIDNCLIA [id number] [place] [address] [place] RBC (Bld) [#/Vol] 3.73 10*6/uL Low 3.90-5.20 [facility] Comment on above: Order Comment: Speci men Type: BLOOD SPECIMENOrdering Facility: [facility] Address: [address] [place] [address] Performed By: #### 5 7021-8 ####[facility]IDNCLIA [id number] [place] [address] [place] WBC (Bld) [#/Vol] 11.69 10*3/uL High 3.70-11.00 [facility] Comment on above: Order Comment: Speci men Type: BLOOD SPECIMENOrdering Facility: [facility] Address: [address] [place] [address] Performed By: #### 5 7021-8 ####[facility] PLACIDNCLIA [id number] [place] [address] [place] Examination level ultrasound on 11-24-2024 [facility] Radiology Study observation (narrative) [facility] Ferritin SerPl-mCncon 2024 Ferritin [Mass/Vol] 14.2 ng/mL Low 14.7-205.1 [facility] Comment on above: Order Comment: Speci men Type: BLOOD SPECIMENOrdering Facility: [facility] Address: [address] [place] [address] Performed By: #### 5 0190-8, 2276-4 ####[facility] LABCLIA [id number] [place] [address] [place] HBV surface Ag Ser Qlon 07-0 HBV surface Ag Ql (S) Negative Normal Negative [facility] Comment on above: Order Comment: Speci men Type: BLOOD SPECIMENOrdering Facility: [facility] Address: [address] [place] [address] Performed By: #### 5 195-3, 20157-6 ####[facility] LABIA [id number] [place] [address] [place] HIV 1+2 Ab IA Qlon 5 HIV 1 and 2 Ab IA.rapid Nom (S/P/Bld) Normal [facility] Comment on above: Order Comment: Speci men Type: BLOOD SPECIMENOrdering Facility: [facility] Address: [address] [place] [address] Result Comment: Test not indicated. Performed By: #### 5 195-3, 63624-3 ####[facility] LABIA [id number] [place] [address] [place] HIV 1+2 Ab+HIV1 p24 Ag IA Ql Non-Reactive Normal Nonreactive [facility] Comment on above: Order Comment: Speci men Type: BLOOD SPECIMENOrdering Facility: [facility] Address: [address] [place] [address] Performed By: #### 5 195-3, 23676-0 ####[facility] LABCLIA [id number] [place] [address] [place] HIV immunoassay testing algorithm interpretation (S/P/Bld) [Interp] Normal [facility] Comment on above: Order Comment: Speci men Type: BLOOD SPECIMENOrdering Facility: [facility] Address: [address] [place] [address] Result Comment: No e vidence of HIV-1 or HIV-2 infection. Should recent infection be suspected, repeat testing may be considered 2-3 weeks after this draw. [place] Rev. Code 3701.243(E): This information has been disclosed to you from confidential records protected from disclosure by state law. You shall make no further disclosure of this information without the specific, written, and informed release of the individual to whom it pertains or as otherwise permitted by state law. A general authorization for the release of medical or other information is not sufficient for the purpose of the release of HIV test results or diagnoses. Performed By: #### 5 195-3, 04012-7 ####[facility] LABCLIA [id number] [place] [address] [place] Iron and Iron binding capaci ty panelon 11-24-2024 Iron [Mass/Vol] 182 ug/dL Normal 41-[address] [facility] Comment on above: Order Comment: Speci men Type: BLOOD SPECIMENOrdering Facility: [facility] Address: [address] [place] [address] Performed By: #### 5 0190-8, 2276-4 ####[facility] LABIA [id number] [place] [address] [place] Iron binding capacity [Mass/Vol] 379 ug/dL Normal 232-[address] [facility] Comment on above: Order Comment: Speci men Type: BLOOD SPECIMENOrdering Facility: [facility] Address: [address] [place] [address] Performed By: #### 5 0190-8, 6-4 ####[facility] LABCLIA [id number] [place] [address] [place] Iron/TIBC [Molar ratio] 48.0 % Normal 15.0-57.[address] [facility] Comment on above: Order Comment: Speci men Type: BLOOD SPECIMENOrdering Facility: [facility] Address: [address] [place] [address] Performed By: #### 5 0190-8, 2276-4 ####[facility] LABCLIA [id number] [address] RUBELLA IGG ANTIBODYon 11-24 RUBELLA IGG AB, QUAL Equivocal Abnormal Positive [facility] Comment on above: Order Comment: Speci men Type: BLOOD SPECIMENOrdering Facility: [facility] Address: [address] [place] [address] Result Comment: Fahad ot exclude non-specific reactivity or recent or past exposure to Rubella virus including vaccination. Equivocal result may also be seen due to waning immunity to Rubella virus or presence of passively-transferred antibodies. Please correlate with patient's history. Performed By: #### R UBIGG ####[facility] LABCLIA [id number] [address] CNNURSEon 11-01-2024 CNNURSE Nurse Visit (EDEDSJ) BRYCE RAMIREZ ([id number]) 1990 F Date Time Provider Department 11/01/24 9:00 AM CIARRA HUBBARD EDEDSReza During your visit today, we recorded the following information about you: Ciarra Hubbard, RN 11/01/2024 10:47 AM Signed DIABETES SELF-MANAGEMENT EDUCATION AND SUPPORT Location: [facility] Type of visit: Virtual (with video) individual I have communicated my name and active licensure. The patient's identity and physical location were verified at the time of this visit. Either the patient or their legal health and safety representative has been informed of the risks and benefits of -- and alternatives to -- treatment through a remote evaluation and consents to proceed with the evaluation remotely. Types of DSMES: GDM PATIENT'S MAIN CONCERN TODAY: Nothing. I'm getting another evaluation. Support person present for education today: none Cognitive ability: Alert and oriented Motivation to learn: Interested Learning barriers identified by educator: none Method of instruction: written, demonstration, and video INTERVENTIONS/TOPICS COVERED: -Diabetes Pathophysiology: insulin resistance, gestational diabetes basics, and symptoms of diabetes -Monitoring: BG targets, logging, and sharps disposal -Healthy Eating: impact of carbs on BG, basic carb counting, foods with carbs, portion sizes, reading food labels, recommendation for GDM meal plan: Breakfast 30 grams + 1-2 oz of protein, no fruit, yogurt or milk, Snack 15-30 grams + 1-2 oz of protein, Lunch 45-60 prakash + 3-6 oz of protein, Snack 15-30 grams + 1-2 oz of protein, Dinner 45-60 grams + 3-6 oz of protein, BT snack 15-30 grams + 2 oz of protein, carbs/protein/fat contribution to calories, and healthy heart options -Medications: pen injection instruction, sharps disposal, basal insulin, and injectable insulin discussed: NPH Insulin and glargine (Lantus) -Physical Activity: benefits of exercise and impact of exercise on BG -Acute Complications: hypoglycemia s/sx/tx, hyperglycemia s/sx/tx, and sick day rules -Chronic Complications: risks to mom and baby with elevated blood sugars during DIABETES ASSESSMENT: Referring Physician: Chaya Fermin Previous Diabetes Education? No What are you hoping to gain from this visit? Nothing, I'm getting another evaluation. I don't think I have it. In your words, what is gestational diabetes? Annoying What concerns you about having gestational diabetes? none Diabetes History: Type of Diabetes: Gestational ( diabetes in ) How far along is your ? Weeks: 29 Does anyone in your family have diabetes? yes on both sides of the family. 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 rarely How often does someone help you read your pill bottles? never How often does someone have to help you take care of your diabetes? never Major stressors: none How do you manage stress? Watch [employer] [place] Do any of the following things get in the way of managing your diabetes? Nothing gets in the way of DM management Health History: Do you use tobacco? No Do you use alcohol? No In the past 12 months have you had any: Hospital Admissions: No ER Visits: No Primary Care Visits: Yes, Number of Times? 1 What are your general feelings about you overall health? Good Medical Issues/Complications: PCOS To whom are you reporting your blood sugar levels? OB and High-Risk OB PAST MEDICAL HISTORY Diagnosis Date anxiety Anxiety and depression 05/28/2022 History of PCOS Low HDL (under 40) 06/2013 Migraine Patellofemoral syndrome, bilateral b/l, sees PT Proteinuria as a teenager Tendonitis of shoulder, right has seen PT Most recent A1C Lab Results Component Value Date HBA1C 5.2 07/12/2024 HBA1C 5.2 09/30/2022 HBA1C 5.3 07/12/2013 Physical Activity: Do you do a regular exercise? Yes; how many days per week 5+ How long each day? 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 Current Outpatient Medications Medication Sig ascorbic acid, vitamin C, (VITAMIN C) 500 mg tablet Take 1 tablet by mouth every other day. aspirin, enteric coated (ECOTRIN LOW STRENGTH) 81 mg EC tablet Take 1 tablet by mouth once daily. blood sugar diagnostic test strip Use as directed to check glucose levels up to seven times daily. Lancets Use as directed to check glucose levels u (more content not included)... Normal [facility] GLUCOSE GESTATIONAL, 1 HOURo n 10-27-2024 Glucose 1 Hr post Unsp challenge [Mass/Vol] 185 mg/dL High 74-[address] [facility] Comment on above: Order Comment: Speci men Type: BLOOD SPECIMENOrdering Facility: [facility] Address: [address] [place] [address] Result Comment: [facility] Congress of Obstetricians and Gynecologists (Kaye/Nitin) guidelines state gestational diabetes mellitus is present when 2 or more of the plasma glucose concentrations meet or exceed the following levels: fastin mg/dl, 1 hr: 180 mg/dl, 2 hr: 155 mg/dl, and 3 hr: 140 mg/dl. Performed By: #### G TGST1 ####[facility] [id number] [place] [address] [place] GLUCOSE GESTATIONAL, 2 HOURo n 10-27-2024 Glucose 2 Hr post Unsp challenge [Mass/Vol] 164 mg/dL High 74-[address] [facility] Comment on above: Order Comment: Speci selvin Type: BLOOD SPECIMENOrdering Facility: [facility] Address: [address] [place] [address] Result Comment: [facility] of Obstetricians and Gynecologists (Restrepo/Nitin) guidelines state gestational diabetes mellitus is present when 2 or more of the plasma glucose concentrations meet or exceed the following levels: fastin mg/dl, 1 hr: 180 mg/dl, 2 hr: 155 mg/dl, and 3 hr: 140 mg/dl. Performed By: #### G TGST2 ####[facility] [id number] [address] [place] GLUCOSE GESTATIONAL, 3 HOURo n 10-27-2024 Glucose 3 Hr post Unsp challenge [Mass/Vol] 123 mg/dL Normal 74-[address] [facility] Comment on above: Order Comment: Jacqueline montalvo Type: BLOOD SPECIMENOrdering Facility: [facility] Address: [address] [place] [address] Result Comment: [facility] Congress of Obstetricians and Gynecologists (Restrepo/Nitin) guidelines state gestational diabetes mellitus is present when 2 or more of the plasma glucose concentrations meet or exceed the following levels: fastin mg/dl, 1 hr: 180 mg/dl, 2 hr: 155 mg/dl, and 3 hr: 140 mg/dl. Performed By: #### G TGST3 ####[facility] [id number] [address] [place] GLUCOSE GESTATIONAL, FASTING on 10-27-2024 Glucose post fast [Mass/Vol] 98 mg/dL High 74-[address] [facility] Comment on above: Order Comment: Speci men Type: BLOOD SPECIMENOrdering Facility: [facility] Address: [address] [place] [address] Result Comment: [facility] Congress of Obstetricians and Gynecologists (Kaye/Nitin) guidelines state gestational diabetes mellitus is present when 2 or more of the plasma glucose concentrations meet or exceed the following levels: fastin mg/dl, 1 hr: 180 mg/dl, 2 hr: 155 mg/dl, and 3 hr: 140 mg/dl. Performed By: #### G TGSTF ####[facility] [id number] [place] [address] [place] CBC W Auto Differential pane l (Bld)on 10-25-2024 Basophils (Bld) [#/Vol] 0.04 10*3/uL Normal <0.[address] [facility] Comment on above: Order Comment: Speci men Type: BLOOD SPECIMENOrdering Facility: [facility] Address: [address] [place] [address] Performed By: #### 5 7021-8 ####[facility] [id number] [place] [address] [place] Basophils/100 WBC (Bld) 0.4 % Normal [facility] Comment on above: Order Comment: Speci men Type: BLOOD SPECIMENOrdering Facility: [facility] Address: [address] [place] [address] Performed By: #### 5 7021-8 ####[facility] [id number] [address] [place] [facility] Differential cell count method Nom (Bld) Auto Normal [facility] Comment on above: Order Comment: Speci men Type: BLOOD SPECIMENOrdering Facility: [facility] Address: [address] [place] [address] Performed By: #### 5 7021-8 ####[facility] MILLWNCLIA [id number] [place] [address] [place] Eosinophils (Bld) [#/Vol] 0.15 10*3/uL Normal <0.[address] [facility] Comment on above: Order Comment: Speci men Type: BLOOD SPECIMENOrdering Facility: [facility] Address: [address] [place] [address] Performed By: #### 5 7021-8 ####[facility] [id number] [place] [address] [place] Eosinophils/100 WBC (Bld) 1.4 % Normal [facility] Comment on above: Order Comment: Speci men Type: BLOOD SPECIMENOrdering Facility: [facility] Address: [address] [place] [address] Performed By: #### 5 7021-8 ####[facility] [id number] [place] [address] [place] Erythrocyte distribution width (RBC) [Ratio] 14.6 % Normal 11.5-15.[address] [facility] Comment on above: Order Comment: Speci men Type: BLOOD SPECIMENOrdering Facility: [facility] Address: [address] [place] [address] Performed By: #### 5 7021-8 ####[facility] [id number] [place] [address] [place] Hematocrit (Bld) [Volume fraction] 30.8 % Low 36.0-46.[address] [facility] Comment on above: Order Comment: Speci men Type: BLOOD SPECIMENOrdering Facility: [facility] Address: [address] [place] [address] Performed By: #### 5 7021-8 ####[facility] [id number] [place] [address] [place] Hemoglobin (Bld) [Mass/Vol] 10.1 g/dL Low 11.5-15.[address] [facility] Comment on above: Order Comment: Speci men Type: BLOOD SPECIMENOrdering Facility: [facility] Address: [address] [place] [address] Performed By: #### 5 7021-8 ####[facility] [id number] [place] [address] [place] Immature granulocytes (Bld) [#/Vol] 0.03 10*3/uL Normal <0.[address] [facility] Comment on above: Order Comment: Speci men Type: BLOOD SPECIMENOrdering Facility: [facility] Address: [address] [place] [address] Performed By: #### 5 7021-8 ####[facility] [id number] [place] [address] [place] Immature granulocytes/100 WBC (Bld) 0.3 % Normal [facility] Comment on above: Order Comment: Speci men Type: BLOOD SPECIMENOrdering Facility: [facility] Address: [address] [place] [address] Performed By: #### 5 7021-8 ####[facility]IDN[facility] [id number] [place] [address] [place] Lymphocytes (Bld) [#/Vol] 1.85 10*3/uL Normal 1.00-4.[address] [facility] Comment on above: Order Comment: Speci men Type: BLOOD SPECIMENOrdering Facility: [facility] Address: [address] [place] [address] Performed By: #### 5 7021-8 ####[facility] [id number] [place] [address] [place] Lymphocytes/100 WBC (Bld) 16.7 % Normal [facility] Comment on above: Order Comment: Speci men Type: BLOOD SPECIMENOrdering Facility: [facility] Address: [address] [place] [address] Performed By: #### 5 7021-8 ####[facility] BJKseniaNCDALTON [id number] [place] [address] [place] MCH (RBC) [Entitic mass] 28.8 pg Normal 26.0-34.[address] [facility] Comment on above: Order Comment: Speci men Type: BLOOD SPECIMENOrdering Facility: [facility] Address: [address] [place] [address] Performed By: #### 5 7021-8 ####[facility]CD[facility] [id number] [place] [address] [place] MCHC (RBC) [Mass/Vol] 32.8 g/dL Normal 30.5-36.[address] [facility] Comment on above: Order Comment: Speci men Type: BLOOD SPECIMENOrdering Facility: [facility] Address: [address] [place] [address] Performed By: #### 5 7021-8 ####[facility] [id number] [address] [place] MCV (RBC) [Entitic vol] 87.7 fL Normal 80.0-100.[address] [facility] Comment on above: Order Comment: Speci men Type: BLOOD SPECIMENOrdering Facility: [facility] Address: [address] [place] [address] Performed By: #### 5 7021-8 ####[facility] [id number] [place] [address] [place] Monocytes (Bld) [#/Vol] 0.47 10*3/uL Normal <0.[address] [facility] Comment on above: Order Comment: Speci men Type: BLOOD SPECIMENOrdering Facility: [facility] Address: [address] [place], [place] [id number] Performed By: #### 5 7021-8 ####[facility] MILLWNCLIA [id number] [place] [address] [place] Monocytes/100 WBC (Bld) 4.2 % Normal [facility] Comment on above: Order Comment: Speci men Type: BLOOD SPECIMENOrdering Facility: [facility] Address: [address] [place] [address] Performed By: #### 5 7021-8 ####[facility]NCL[facility] [id number] [place] [address] [place] Neutrophils (Bld) [#/Vol] 8.56 10*3/uL High 1.45-7.[address] [facility] Comment on above: Order Comment: Speci men Type: BLOOD SPECIMENOrdering Facility: [facility] Address: [address] [place] [address] Performed By: #### 5 7021-8 ####[facility] [id number] [place] [address] [place] Neutrophils/100 WBC (Bld) 77.0 % Normal [facility] Comment on above: Order Comment: Speci men Type: BLOOD SPECIMENOrdering Facility: [facility] Address: [address] [place] [address] Performed By: #### 5 7021-8 ####[facility]IDNCL[facility] [id number] [place] [address] [place] Nucleated RBC (Bld) [#/Vol] 10*3/uL Normal <0.[address] [facility] Comment on above: Order Comment: Speci men Type: BLOOD SPECIMENOrdering Facility: [facility] Address: [address] [place] [address] Performed By: #### 5 7021-8 ####[facility]IDNCLIA [id number] [place] [address] [place] Nucleated RBC/100 WBC (Bld) [Ratio] 0.0 /100 WBC Normal [facility] Comment on above: Order Comment: Speci men Type: BLOOD SPECIMENOrdering Facility: [facility] Address: [address] [place] [address] Performed By: #### 5 7021-8 ####[facility] PLACIDNCLISSETTEA [id number] [place] [address] [place] Platelet mean volume (Bld) [Entitic vol] 10.1 fL Normal 9.0-12.[address] [facility] Comment on above: Order Comment: Speci men Type: BLOOD SPECIMENOrdering Facility: [facility] Address: [address] [place] [address] Performed By: #### 5 7021-8 ####[facility] [id number] [place] [address] [place] Platelets (Bld) [#/Vol] 209 10*3/uL Normal 150-[address] [facility] Comment on above: Order Comment: Speci men Type: BLOOD SPECIMENOrdering Facility: [facility] Address: [address] [place] [address] Performed By: #### 5 7021-8 ####[facility] [id number] [place] [address] [place] RBC (Bld) [#/Vol] 3.51 10*6/uL Low 3.90-5.20 [facility] Comment on above: Order Comment: Speci men Type: BLOOD SPECIMENOrdering Facility: [facility] Address: [address] [place] [address] Performed By: #### 5 7021-8 ####[facility]CL[facility] [id number] [place] [address] [place] WBC (Bld) [#/Vol] 11.10 10*3/uL High 3.70-11.00 [facility] Comment on above: Order Comment: Speci selvin Type: BLOOD SPECIMENOrdering Facility: [facility] Address: [address] [place] [address] Performed By: #### 5 7021-8 ####[facility] [id number] [place] [address] [place] Examination level ultrasound on 10-25-2024 [facility] Radiology Study observation (narrative) [facility] GESTATIONAL GLUCOSE SCREEN, 1-HOUR, 50 GRAM, NON-FASTINGon 10-25-2024 Glucose [Mass/Vol] 138 mg/dL High 74-134 [facility] Comment on above: Order Comment: Jacqueline montalvo Type: BLOOD SPECIMENOrdering Facility: [facility] Address: [address] [place] [address] Result Comment: [facility] Congress of Obstetricians and Gynecologists (Restrepo/Nitin) guidelines state a gestational diabetes mellitus positive screen is made, in women not previously diagnosed with overt diabetes, when the 1 hr plasma glucose level is equal to or above 140 mg/dL. The [facility] [employer] [facility] Creole recommends a 135 mg/dL cutoff. Performed By: #### G LTGST ####[facility] [id number] [place] [address] [place] Iron and Iron binding capaci ty panelon 10-25-2024 Iron [Mass/Vol] 44 ug/dL Normal 41-[address] [facility] Comment on above: Order Comment: Julioi men Type: BLOOD SPECIMENOrdering Facility: [facility] Address: [address] [place] [address] Performed By: #### 5 0190-8 ####[facility] LABCLIA [id number] [place] [address] [place] Iron binding capacity [Mass/Vol] 382 ug/dL Normal 232-[address] [facility] Comment on above: Order Comment: Jacqueline men Type: BLOOD SPECIMENOrdering Facility: [facility] Address: [address] [place] [address] Performed By: #### 5 0190-8 ####[facility] LABIA [id number] [place] [address] [place] Iron/TIBC [Molar ratio] 11.5 % Low 15.0-57.[address] [facility] Comment on above: Order Comment: Speci men Type: BLOOD SPECIMENOrdering Facility: [facility] Address: [address] [place] [address] Performed By: #### 5 0190-8 ####[facility] LABIA [id number] [place] [address] [place] Reagin and Treponema pallidu m IgG and IgM [Interp]on 10-25-2024 T. pallidum IgG+IgM IA Ql (S) Non-Reactive Normal Nonreactive [facility] Comment on above: Order Comment: Speci men Type: BLOOD SPECIMENOrdering Facility: [facility] Address: [address] [place] [address] Performed By: #### 7 3752-8 ####[facility] LABIA [id number] [place] [address] [place] Reagin+T pallidum IgG+IgM Se rPl-Impon 10-25-2024 Reagin and Treponema pallidum IgG and IgM [Interp] Cannot exclude recent Treponemal infection if specimen collected within 7-10 days after appearance of suspect lesions or 2-3 weeks after an exposure. Clinical correlation is required. Normal [facility] Comment on above: Order Comment: Speci men Type: BLOOD SPECIMENOrdering Facility: [facility] Address: [address] [place] [address] Performed By: #### 7 3752-8 ####[facility] LABIA [id number] [place] [address] [place] TYPE + SCREEN PRENATALon ABO O Normal [facility] Comment on above: Order Comment: Speci men Type: BLOOD SPECIMEN Ordering Facility: [facility] Address: [address] [place] [address] Performed By: #### T SPN #### [facility] CLIA [id number] [address] [place], [place] [id number] [place] Rh Nom (Bld) Positive Normal [facility] Comment on above: Order Comment: Speci men Type: BLOOD SPECIMEN Ordering Facility: [facility] Address: [address] [place] [address] Performed By: #### T SPN #### [facility] CLIA [id number] [address] [place] [address] [place] TYPE AND SCREEN EXPIRATION 10/28/2024 23:[address] [facility] Comment on above: Order Comment: Speci men Type: BLOOD SPECIMEN Ordering Facility: [facility] Address: [address] [place] [address] Performed By: #### T SPN #### [facility] CLIA [id number] [address] [place], [place] [address] [place] Urine Cultureon 10-18-2024 [facility] Mixed Gram Positive Organisms [place] Count >100,000 MIX[facility] Mixed contaminants. Submit a new specimen if indicated. Normal [facility] Comment on above: Performed By: #### M 100.2200 #### [facility] [address] [place], [address] AST(SGOT)on 10-16-2024 AST [Catalytic activity/Vol] 14 U/L Normal <=31 [facility] Comment on above: Performed By: #### L 501.0900, L501.1105, L100.0500, L501.4405, L501.4100, L501.1400 #### [facility] [address] [place], [address] Alanine Aminotransferas (SGP T)on 10-16-2024 ALT [Catalytic activity/Vol] 8 U/L Normal <=34 [facility] Comment on above: Performed By: #### L 501.0900, L501.1105, L100.0500, L501.4405, L501.4100, L501.1400 #### [facility] [address] [place], [address] CBC-Complete Blood Cnt No Di ffon 10-16-2024 Erythrocyte distribution width (RBC) [Ratio] 14.6 % Normal 11.6-14.6 [facility] Comment on above: Performed By: #### L 501.0900, L501.1105, L100.0500, L501.4405, L501.4100, L501.1400 #### [facility] [address] [place], [address] Hematocrit (Bld) [Volume fraction] 31.5 % Low 37-47 [facility] Comment on above: Performed By: #### L 501.0900, L501.1105, L100.0500, L501.4405, L501.4100, L501.1400 #### [facility] [address] [place], [address] Hemoglobin (Bld) [Mass/Vol] 10.5 g/dL Low 12.0-15.0 [facility] Comment on above: Performed By: #### L 501.0900, L501.1105, L100.0500, L501.4405, L501.4100, L501.1400 #### [facility] [address] [place], [address] MCH (RBC) [Entitic mass] 29.5 pg Normal 27.0-32.0 [facility] Comment on above: Performed By: #### L 501.0900, L501.1105, L100.0500, L501.4405, L501.4100, L501.1400 #### [facility] [address] [place], [address] MCHC (RBC) [Mass/Vol] 33.3 g/dL Normal 32-36 [facility] Comment on above: Performed By: #### L 501.0900, L501.1105, L100.0500, L501.4405, L501.4100, L501.1400 #### [facility] [address] [place], [address] MCV (RBC) [Entitic vol] 88.5 fL Normal 81-99 [facility] Comment on above: Performed By: #### L 501.0900, L501.1105, L100.0500, L501.4405, L501.4100, L501.1400 #### [facility] [address] [place], [address] Platelet mean volume (Bld) [Entitic vol] 9.9 fL Normal 6.2-12.0 [facility] Comment on above: Performed By: #### L 501.0900, L501.1105, L100.0500, L501.4405, L501.4100, L501.1400 #### [facility] [address] [place], [address] Platelets (Bld) [#/Vol] 221 10*3/uL Normal 150-450 [facility] Comment on above: Performed By: #### L 501.0900, L501.1105, L100.0500, L501.4405, L501.4100, L501.1400 #### [facility] [address] [place], [address] RBC (Bld) [#/Vol] 3.56 10*6/uL Low 4.2-5.4 [facility] Comment on above: Performed By: #### L 501.0900, L501.1105, L100.0500, L501.4405, L501.4100, L501.1400 #### [facility] [address] [place], [address] RDW SD 47.3 fl High 35.1-43.9 [facility] Comment on above: Performed By: #### L 501.0900, L501.1105, L100.0500, L501.4405, L501.4100, L501.1400 #### [facility] [address] [place], [address] WBC (Bld) [#/Vol] 10.1 10*3/uL Normal 4.4-11.0 [facility] Comment on above: Performed By: #### L 501.0900, L501.1105, L100.0500, L501.4405, L501.4100, L501.1400 #### [facility] [address] [place], [address] Discharge Instructionon 09-24 Discharge Instruction [facility] Medical Records Department [address] [place] [address] Instructions for Home/Discharge Instructions 10/16/242031 MR#: [id number] Acct: [id number] Name: BRYCE RAMIREZ Rep #: [id number] : 1990 34 From: Marybeth Escamilla CNM PCP: Dr. Ze Pugh, DO Status:REG CLI Discharge Instructions DC O2, CPAP, BIPAP needs Home O2 Discharge instructions: No Follow Up Care Test Results: Test results from this visit will be discussed in further detail at your follow-up appointment, if applicable. Discharge Plan Admission Reason For Visit: RULE OUR PRE-E Attending Provider: Marybeth Escamilla Primary Care Provider: Ze Pugh Discharge Orders/Prescriptions Prescriptions: New nitrofurantoin monohyd/m-cryst [Macrobid] 100 mg capsule 100 mg PO BID Qty: 14 0RF Rx Instructions: Take medication with food to help with GI upset Finish all of medication No Action vit,[id number] [Prenatabs FA] 1 TABLET tablet 1 tab PO DAILY ibuprofen 600 MG tablet 600 mg PO Q6H PRN PRN (Reason: Pain Score 1-3/10) 0RF Referrals / Follow Up: Ze Pugh DO [Primary Care Provider] - Disposition Patient Disposition: Home, Self Care 10/16/242033 Marybeth Escamilla CNM CC: Dr. Ze Pugh DO Signed Normal [facility] OB Triage Physician Noteon 0 10-16-2024 OB Triage Physician Note [facility] Medical Records Department [address] [place] [address] OB Triage Physician Note 10/16/242023 MR#: [id number] Acct: [id number] Name: BRYCE RAMIREZ Rep #: [id number] : 1990 34 From: Marybeth Escamilla CNM PCP: Dr. Ze Pugh, Status:REG CLI Y Location: [address] HPI - General HPI Narrative BRYCE RAMIREZ, is a 34 F at 26.6 weeks gestation who presents to triage with nausea, dizziness and a headache that won't go away. Denies any loss of fluid or vaginal bleeding. Positive movements. Stated has not been able to eat or drink much this weekend. Maternal Data Information DIDIER Calculator Estimated Delivery Date Method Current WG Current Estimate 01/16/25 Manual 26w 6d PFSH PFSH Medical History (Updated 10/16/24 @ 20:30 by Marybeth Escamilla CNM) PCOS (polycystic ovarian syndrome) Home Medications ???Medication ???Instructions ???Recorded ???Last Taken ???Type vits,calcium no.78-iron 1 tab PO DAILY 05/09/18 10/08/19 08:00 History fumarate-folic acid 29 mg-1 mg tablet (Prenatabs FA) ibuprofen 600 mg tablet 600 mg PO Q6H PRN PRN Pain Score 0 10/10/19 Unknown Rx 1-08/02 Allergy/AdvReac Type Severity Reaction Status Date / Time No Known Allergies Allergy Verified 10/09/19 00:45 Social History Smoking Status: Never smoker History Elective abortions Hx Para 1 Spontaneous abortions Hx # Term Pregnancies Ectopic pregnancies Hx # Pregnancies Multiple births # of living children ROS Eyes Eyes: Denies blurry vision Cardiovascular Cardiovascular: Reports none; Denies chest pain at rest, chest pain with activity or dizziness Respiratory/Chest Respiratory/Chest: Denies cough or dyspnea Gastrointestinal Gastrointestinal: Reports none and other; Denies diarrhea or vomiting Genitourinary Genitourinary: Denies dysuria Musculoskeletal Musculoskeletal: Reports none Integumentary Integumentary: Reports none; Denies rash Neurologic Neurologic: Denies headache(s) or other visual disturbances Psychiatric Psychiatric: Reports none Physical Exam Const alert and no apparent distress General Appearance: cooperative Orientation / Consciousness: awake Exam Limitations: no limitations HEENT normocephalic Eyes General Eye: normal appearance of both eyes Neck full ROM Chest inspection of chest normal Resp normal respiratory effort and normal air movement Effort and Inspection: symmetric chest movement Auscultation: clear to auscultation bilaterally Cardio regular rate GI soft to palpation, non-tender and non-distended Inspection: and other Back/Spine normal ROM Extremity full ROM, normal capillary refill and no calf tenderness Skin no rashes or lesions noted Neuro oriented x3 and CN's II-XII intact bilaterally Psych mental status grossly normal Assessment Plan (1) 26 weeks gestation of : (2) Nausea: (3) Dizziness: (4) Headache: PLAN: Plan Vital signs stable Taking PO UA - POSITIVE for blood, protein, leuk. estrace, and bacteria Labs within normal ranges Start Macrobid 100 mg PO BID x 7 days Send urine for culture Taking PO Desires d/c home with follow up in office 10/16/242030 Date Marybeth Escamilla CNM Cosigner Signature (if applicable): Date CC: ELMIRA Escamilla; Dr. Ze Pugh, DO Signed Normal [facility] Protein+Creatinine Ratio,Uri neon 10-16-2024 PROT:CRE RATIO 101 mg/g CRE Normal 0-200 [facility] Comment on above: Performed By: #### L 501.0900, L501.1105, L100.0500, L501.4405, L501.4100, L501.1400 #### [facility] [address] [place], [address] Protein (U) [Mass/Vol] 13.4 mg/dL High 0.0-12.0 [facility] Comment on above: Performed By: #### L 501.0900, L501.1105, L100.0500, L501.4405, L501.4100, L501.1400 #### [facility] [address] [place], [address] UR CREAT 133.00 mg/dL Normal 28.00-217.00 [facility] Comment on above: Performed By: #### L 501.0900, L501.1105, L100.0500, L501.4405, L501.4100, L501.1400 #### [facility] [address] [place], [address] Serum Creatinine AND GFRon 0 10-16-2024 Creatinine [Mass/Vol] 0.53 mg/dL Low 0.70-1.20 [facility] Comment on above: Performed By: #### L 501.0900, L501.1105, L100.0500, L501.4405, L501.4100, L501.1400 #### [facility] [address] [place], [address] GFR/1.73 sq M.predicted among non-blacks MDRD (S/P/Bld) [Vol rate/Area] 124 mL/min/{1.73_m2} Normal >60 [facility] Comment on above: Result Comment: mL/m in/1.73m2 CKD-EPI Creatinine Equation (2020) Performed By: #### L 501.0900, L501.1105, L100.0500, L501.4405, L501.4100, L501.1400 #### [facility] [address] [place], [address] Uric Acidon 10-16-2024 URIC 2.2 mg/dL Low 2.6-6.0 [facility] Comment on above: Result Comment: The drugs N-Acetylcysteine and Metamizole may falsely depress this assay. Performed By: #### L 501.0900, L501.1105, L100.0500, L501.4405, L501.4100, L501.1400 #### [facility] [address] [place], [address] Urinalysis, Completeon 10-16 BACTERIA 4+ /hpf Normal None Seen [facility] Comment on above: Order Comment: CLEAN CATCH Performed By: #### L 400.0001 #### [facility] [address] [place], [address] EPI,SQUAMOUS 10-25 SEEN Normal 5-10 [facility] Comment on above: Order Comment: CLEAN CATCH Performed By: #### L 400.0001 #### [facility] [address] [place], [address] RBC 0-5 SEEN Normal 0-5 [facility] Comment on above: Order Comment: CLEAN CATCH Performed By: #### L 400.0001 #### [facility] [address] [place], [address] WBC 10-25 SEEN Normal 0-5 [facility] Comment on above: Order Comment: CLEAN CATCH Performed By: #### L 400.0001 #### [facility] [address] [place], [address] Mucus Ql (Urine sed) 0 SEEN Normal [facility] Comment on above: Order Comment: CLEAN CATCH Performed By: #### L 400.0001 #### [facility] [address] [place], [address] FETALon 09-27-2024 + - -------+-+ Pediatric Cardiology Echocardiogram Report + -------+-+ NAME: BRYCE RAMIREZ : 1990 PT ID#: [id number] Age: 34 years Sex: F STUDY DATE: 09/27/2024 9:04:40 AM DIDIER: 01/15/2025 GA: 24w2d Image Quality: The images were of adequate diagnostic quality. Diagnosing Physician: Moses Caruso MD Kiln Stoker: Farzaneh Beauchamp 2nd Kiln Stoker: Diagnosis: [id number] abnormality and damage, single fetus or unspecified Procedure Code: 38537, 86478, 63485 Echo, Complete (w/Doppler and color) Exam Location: [facility] (). Indications: Evaluate cardiac anatomy Color Doppler was utilized to interrogate the cardiac valves assessed. Spectral Doppler was utilized to determine the flow velocities and pressure gradients reported in this exam. History: IVF, Surrogate Parameters: Single/Multi: Mcfarlane Biometry: Biometry Table: Biparietal Diameter 6.32 cm Abdominal Circumference 20.46 cm Femur Length 4.48 cm Estimated Weight 792.38 g Vessels: Three-vessel umbilical cord is present. Umbilical artery flow Doppler is normal. Umbilical venous flow Doppler is normal. Ductus Venosus Doppler is normal. Cerebral Artery Doppler is normal. Rate and Rhythm: Normal heart rate and rhythm. Normal Dopplers including ductus venosus, MCA, umbilical artery/vein (three vessel cord). Segmental Anatomy, Cardiac Position and Situs: The segmental anatomy and situs are normal. Normal visceral situs. The heart position is within the left hemithorax (levo position). Levocardia (apex to the left). The aorta is to the right of the pulmonary artery. Segmental anatomy is S,D,S. Systemic Veins: Right superior vena cava is right sided and drains normally to the right atrium. The inferior vena cava is right sided and inserts normally into the right atrium. Pulmonary Veins: At least one pulmonary vein on each side drains to the left atrium. Atria: The right atrium is normal in size. The left atrium is normal in size. Widely patent foramen ovale with normal intrauterine right to left flow. Tricuspid Valve: The tricuspid valve is normal. Tricuspid valve inflow Doppler is biphasic. There is no tricuspid valve regurgitation. Right Ventricle: There is qualitatively normal right ventricular size and wall thickness with normal systolic function. Mitral Valve: The mitral valve is normal. There is no mitral valve regurgitation. Mitral valve inflow Doppler is biphasic. Left Ventricle: Normal left ventricular size and wall thickness with normal systolic function. VSD: There is no obvious ventricular septal defect. Conotruncal Anatomy: There is normal conotruncal anatomy. RVOT: There is no right ventricular outflow tract obstruction. Pulmonary Valve: The pulmonary valve is normal. There is no pulmonary valve stenosis. There is no pulmonary valve regurgitation. Pulmonary Arteries: The main and branch pulmonary arteries appear normal. The main pulmonary artery is normal. LVOT: There is no left ventricular outflow tract obstruction. Aortic Valve: The aortic valve is normal with no stenosis and no regurgitation. The peak aortic gradient is 1.2 mmHg and the mean is 0.5 mmHg. Aorta: The ascending aorta is normal in size. Aortic arch is widely patent. There is a left aortic arch. Ductus Arteriosus: Ductal arch is widely patent with normal intrauterine right to left flow. Pericardium: There is trivial physiologic posterior pericardial effusion. Prior Exam's: No prior studies or reports for comparison. Measurements: 2D: Z-Score Aortic annulus 3.7 mm -1.03 Ao Isthmus 3.0 mm -0.57 Ao ascending 4.3 mm -0.56 Ao transverse 3.7 mm MV annulus 6.8 mm 0.60 Pulmonary annulus 6.1 mm 1.75 TV annulus 6.9 mm 0.28 MPA diameter 6.5 mm 1.55 LPA diameter 2.5 mm -0.27 RPA diameter 3.3 mm 1.58 Doppler: AoV Vmax 0.5 m/s AoV pk grad 1.2 mmHg Summary 1. Segmental anatomy and situs are normal. 2. No valvar abnormalities seen. 3. Qualitatively normal right ventricular size and wall thickness with normal systolic function. 4. Normal left ventricular size and wall thickness with normal systolic function. 5. No obvious VSD. 6. Left aortic and ductal arches. 7. Aortic arch is widely patent. 8. Ductal arch is widely patent with normal intrauterine right to left flow. 9. Normal main and branch pulmonary arteries. 10. Right and left sided pulmonary venous drainage was demonstrated. 11. Widely patent foramen ovale with normal intrauterine right to left flow. 12. Trivial physiologic posterior pericardial effusion. 13. Normal heart rate and rhythm. 14. Normal Dopplers including ductus venosus, MCA, umbilical artery/vein (three vessel cord). 15. No prior studies or reports. The results and smith (more content not included)... Normal [facility] CNPNon 09-14-2024 CNPN Telephone (CHPDMN) BRYCE RAMIREZ ([id number]) 1990 F Date Time Provider Department 09/14/24 [facility] PROVIDER [facility] During your visit today, we recorded the following information about you: Jacqueline Duarte 09/14/2024 8:38 AM Signed Left vm to schedule echo [phone] opt 2 Allergies As of Date: 09/14/2024 (No Known Allergies) Date Reviewed: 08/03/2024 Reviewed by: Laine Mccollum APRN.CIVIL ENGINEERING PROJECT MANAGER - Fully Assessed Reason for Visit: Consult [173] Cmt: echo Prescriptions as of 09/14/2024 - aspirin, enteric coated (ECOTRIN LOW STRENGTH) 81 mg EC tablet Take 1 tablet by mouth once daily. - Tlwdmrzw-Xe-Fzo-Fe-FA tab Take 1 tablet by mouth once daily. With 1 gram folic acid and DHA as covered by insurance. - cyproheptadine (PERIACTIN) 4 mg tablet Take 1 tablet by mouth every 12 hours as needed. - riboflavin, vitamin B2, (VITAMIN B-2) 100 mg tab Take 2 tablets by mouth once daily. - cyclobenzaprine (FLEXERIL) 5 mg tablet Take 1 tablet by mouth three times a day. - PNV no.95/ferrous fum/folic ac ( ORAL) Take by mouth. - ergocalciferol, vitamin D2, (VITAMIN D2 ORAL) Take by mouth. Meds Comments as of 03/15/2017: No daily medications currently 03/15/17: Takes regular multivitamin and vitamins. 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] 12/17/2010 Diplopia [H53.2] 07/13/2012 04/27/2019 PCOS (polycystic ovarian syndrome) [E28.2] 09/10/2017 History of depression [Z86.59] 09/18/2017 Patient requested diagnostic testing [Z01.89] 09/18/2017 06/22/2018 Exposure to genital herpes [Z20.2] 09/18/2017 Encounter for supervision of normal first pregn*11/04/2017 06/22/2018 Left knee pain [M25.562] 03/04/2018 Pelvic floor instability [M62.89] 03/04/2018 Short interval between pregnancies affecting pr*02/11/2019 10/25/2019 Acute bilateral low back pain without sciatica *11/29/2019 Anxiety and depression [F41.9, F32.A] 05/28/2022 Migraine [G43.909] 05/28/2022 Situational insomnia [F51.09] 05/28/2022 Fatigue [R53.83] 09/30/2022 resulting from in vitro fertilization* 025 Surrogate [Z33.3] 07/12/2024 History of PCOS [Z87.42] 07/12/2024 Supervision of other high risk pregnancies, sec*07/16/2024 Encounter Status:Closed by JACQUELINE DUARTE on 09/14/[address] [facility] Afshan 09-07-2024 CNPN Telephone (OBGYWM) BRYCE RAMIREZ ([id number]) 1990 F Date Time Provider Department 09/07/24 CHAYA FERMIN During your visit today, we recorded the following information about you: Kandy Rivers RN 09/07/2024 9:58 AM Signed Chaya Fermin APRN.ELMIRA Sage tr [employer]-Dust Mixer Pool Do we still not have her medical records? I don't see them scanned or her labs uploaded into the chart for her record. Am I missing them? Thanks, Chaya Fermin APRN.Kandy Nascimento RN 09/07/2024 9:58 AM Signed Left message for Pt informing her mychart message would be sent and if she had questions/concerns to call office. NIKUNJ House Teresa, RN 09/15/2024 10:21 AM Signed I called patient because she had not viewed MyChart message. Discussed importance of us getting her medical records and informed her that medical release form was attached to previous MyChart message that she hasn't reviewed. Patient states she will contact previous provider and check her MyChart message Luisa Powell RN 09/27/2024 4:45 PM Signed Donor records are in nurse triage room still if needed until patient's records are received. NIKUNJ Sterling Trisha, RN 10/13/2024 10:07 AM Signed Left message for patient to check mychart message. NIKUNJ Sterling Trisha, RN 10/20/2024 11:12 AM Signed Updated 10/25/24 appt notes to have pt sign if she hasn't by then. NIKUNJ Sterling Trisha, RN 10/25/2024 1:26 PM Signed Patient was in office today and provider told her to sign records release at front end software developer. NIKUNJ Sterling Tara, RN 11/09/2024 4:04 PM Signed Records release faxed to [facility] on 10/26/24 at 9:29 am for all medical records re:continuity of care. Kandy Rivers RN Allergies As of Date: 09/07/2024 (No Known Allergies) Date Reviewed: 08/03/2024 Reviewed by: Laine Mccollum APRN.CIVIL ENGINEERING PROJECT MANAGER - Fully Assessed Reason for Visit: Request Outside Medical Records [[id number]] Prescriptions as of 11/09/2024 - blood sugar diagnostic test strip Use as directed to check glucose levels up to seven times daily. - Lancets Use as directed to check glucose levels up to seven times daily. - alcohol swabs (ALCOHOL PREP PADS) Use as directed to check glucose levels up to seven times daily. - ascorbic acid, vitamin C, (VITAMIN C) 500 mg tablet Take 1 tablet by mouth every other day. - ferrous sulfate 325 mg (65 mg iron) tablet Take 1 tablet by mouth every other day. - acyclovir (ZOVIRAX) 400 mg tablet Take 1 tablet by mouth three times a day. - riboflavin, vitamin B2, (VITAMIN B-2) 100 mg tab Take 2 tablets by mouth once daily. - famotidine (PEPCID) 40 mg tablet Take 1 tablet by mouth once daily. - aspirin, enteric coated (ECOTRIN LOW STRENGTH) 81 mg EC tablet Take 1 tablet by mouth once daily. - Djybrnnb-Yi-Esz-Fe-FA tab Take 1 tablet by mouth once daily. With 1 gram folic acid and DHA as covered by insurance. - cyclobenzaprine (FLEXERIL) 5 mg tablet Take 1 tablet by mouth three times a day. - PNV no.95/ferrous fum/folic ac ( ORAL) Take by mouth. - ergocalciferol, vitamin D2, (VITAMIN D2 ORAL) Take by mouth. Meds Comments as of 03/15/2017: No daily medications currently 03/15/17: Takes regular multivitamin and vitamins. 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] 12/17/2010 Diplopia [H53.2] 07/13/2012 04/27/2019 PCOS (polycystic ovarian syndrome) [E28.2] 09/10/2017 History of depression [Z86.59] 09/18/2017 Patient requested diagnostic testing [Z01.89] 09/18/2017 06/22/2018 Exposure to genital herpes [Z20.2] 09/18/2017 Encounter for supervision of normal first pregn*11/04/2017 06/22/2018 Left knee pain [M25.562] 03/04/2018 Pelvic floor instability [M62.89] 03/04/2018 Short interval between pregnancies affecting pr*02/11/2019 10/25/2019 Acute bilateral low back pain without sciatica *11/29/2019 Anxiety and depression [F41.9, F32.A] 05/28/2022 Migraine [G43.909] 05/28/2022 Situational insomnia [F51.09] 05/28/2022 Fatigue [R53.83] 09/30/2022 resulting from in vitro fertilization* 025 Surrogate [Z33.3] 07/12/2024 History of PCOS [Z87.42] 07/12/2024 Supervision of other high risk pregnancies, sec*07/16/2024 Letter Text Encounter Status:Closed by JULIETTE FERNANDEZ on 09/15/[address] [facility] Examination level ultrasound on 08-30-2024 Indication Detailed anatomic survey Maternal obesity, BMI >35, resulting from invitro fertilization Impression REMOTE READ The patient is referred for a detailed anatomic survey. - Single, live, intrauterine . - biometry is consistent with the established gestational age. - No malformations were visualized on a complete detailed anatomic survey. - The amniotic fluid volume is normal amount. - The placenta is posterior, fundal. - The Transabdominal cervical length measures 38.7 mm with no evidence of funneling or other dynamic changes. - Not all structural malformations can be detected by ultrasound examination. Recommendations Screening echocardiogram can be offered Monthly growth ultrasounds at 28 weeks Maternal Assessment Height 160 cm Height (ft) 5 ft Height (in) 3 in Physical Exam Initial weight (lb) 204 lb Initial BMI 36.14 kg/m Maternal assessment other: 4 Para 2 Method Transabdominal ultrasound examination. View: Suboptimal view: limited by position Mcfarlane . Number of fetuses: 1 Dating GA by prior assessment 20 w + 2 d DIDIER by prior assessment: 01/15/2025 Ultrasound examination on: 08/30/2024 GA by U/S based upon: AC, BPD, Femur, HC GA by U/S 20 w + 4 d DIDIER by U/S: 01/13/2025 Assigned: based on stated DIDIER, selected on 08/30/2024 Assigned GA 20 w + 2 d Assigned DIDIER: 01/15/2025 General Evaluation Cardiac activity present. FHR 152 bpm. movements: present. Presentation: breech Placenta: Placental site: posterior, fundal Umbilical cord: Cord vessels: 3 vessel cord Amniotic fluid: Amount of AF: normal amount. MVP 7.6 cm Growth Overview Exam date GA BPD (mm) HC (mm) AC (mm) FL (mm) HL (mm) EFW (g) 08/30/2024 20w 2d 47.9 58% 178.6 50% 162.7 78% 32.3 56% 31.3 57% 370 66% Biometry Standard BPD 47.9 mm 20w 3d 58% Hadlock OFD 63.2 mm 20w 2d 71% Nicolaides HC 178.6 mm 20w 2d 50% Rea Cerebellum tr 20.8 mm 19w 6d 56% Hill Nuchal fold 4.7 mm AC 162.7 mm 21w 2d 78% Hadlock Femur 32.3 mm 20w 2d 56% Rea Humerus 31.3 mm 20w 3d 57% Rea EFW 370 g 20w 4d 66% Hadlock EFW (lb) 0 lb EFW (oz) 13 oz EFW by: Hadlock (HC-AC-FL) Extended Mine Safety Manager 5.3 mm CM 3.6 mm 9% Nicolaides Extremities / Bony Struc FL / HC 0.18 21% Hadlock Other Structures FHR 152 bpm Anatomy Cranium: normal Lateral ventricles: normal Choroid plexus: normal Midline falx: normal Cavum septi pellucidi: normal Cerebellum: normal Cisterna magna: normal Head / Neck Vermis: normal Neck: normal Nuchal fold: normal Lips: normal Profile: normal Nose: normal Face Maxilla: normal Mandible: normal Orbits: normal Lens: normal 4-chamber view: normal RVOT view: normal LVOT view: normal 3-vessel view: normal 5-rtfhpa-lriwhwj view: normal Heart / Thorax Situs: situs solitus (normal) Aortic arch view: normal SVC: normal IVC: normal Cardiac axis: normal Rt lung: normal Lt lung: normal Diaphragm: normal Cord insertion: normal Stomach: normal Kidneys: normal Bladder: normal Genitals: normal Abdomen Abdom. wall: normal Cervical spine: normal Thoracic spine: normal Lumbar spine: normal Sacral spine: normal Arms: normal Legs: normal Rt upper arm: normal Rt forearm: normal Rt hand: normal Rt fingers: normal Lt upper arm: normal Lt forearm: normal Lt hand: normal Lt fingers: normal Rt upper leg: normal Rt lower leg: normal Rt foot: normal Lt upper leg: normal Lt lower leg: normal Lt foot: normal Gender: Unspecified Wants to know sex: no Maternal Structures Uterus / Cervix Uterus: Visualized Cervix: Visualized Approach: Transabdominal Cervical length 38.7 mm Other: Patient declined transvaginal ultrasound for cervical length. Ovaries / Tubes / Adnexa Rt ovary: Visualized Lt ovary: Visualized Performed By: Ros Camacho RDMS, RVT Read By: Yady Boyer M.D. MATERNAL MEDICINE [facility] Radiology Study observation (narrative) [facility] Afshan 07-22-2024 [facility] BRYCE RAMIREZ ([id number]) 1990 F Date Time Provider Department 07/22/[facility] During your visit today, we recorded the following information about you: Mariel Marroquin LPN 07/22/2024 4:22 PM Signed Prescription Refill Information The patient has been identified by name and date of : Yes Caregiver verified no other encounters exist for this prescription request: Yes Caregiver confirmed with patient/requestor that no other refills are due, in the near future, with this provider at this time: Yes The last office visit in the department: 06/24/23 Does the patient have a future office visit with this provider/department: No Requested Prescriptions No prescriptions requested or ordered in this encounter Mariel Marroquin LPN July 22, 2024 4:17 PM Radha Brown APRN.FRANKLYN 07/26/2024 9:46 AM Signed Nothing pended... Radha Brown APRN.Mariel Herman LPN 07/26/2024 1:43 PM Signed Called pt to ask what medication was needed refilled.Asked pt to return call. Allergies As of Date: 07/22/2024 (No Known Allergies) Date Reviewed: 07/12/2024 Reviewed by: Tejas Valdez MA - Fully Assessed Reason for Visit: Refill Request [94] Prescriptions as of 2024 - cyproheptadine (PERIACTIN) 4 mg tablet Take 1 tablet by mouth every 12 hours as needed. - riboflavin, vitamin B2, (VITAMIN B-2) 100 mg tab Take 2 tablets by mouth once daily. - cyclobenzaprine (FLEXERIL) 5 mg tablet Take 1 tablet by mouth three times a day. - PNV no.95/ferrous fum/folic ac ( ORAL) Take by mouth. - aspirin, enteric coated (ECOTRIN LOW STRENGTH) 81 mg EC tablet Take 1 tablet by mouth once daily. - ergocalciferol, vitamin D2, (VITAMIN D2 ORAL) Take by mouth. - rizatriptan (MAXALT-[employer]PER[employer] R[employer]ACING) 10 mg disintegrating tablet Take 1 tablet (10 mg) by mouth as needed. May repeat in 2 hours if needed Meds Comments as of 03/15/2017: No daily medications currently 03/15/17: Takes regular multivitamin and vitamins. 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] 12/17/2010 Diplopia [H53.2] 07/13/2012 04/27/2019 PCOS (polycystic ovarian syndrome) [E28.2] 09/10/2017 History of depression [Z86.59] 09/18/2017 Patient requested diagnostic testing [Z01.89] 09/18/2017 06/22/2018 Exposure to genital herpes [Z20.2] 09/18/2017 Encounter for supervision of normal first pregn*11/04/2017 06/22/2018 Left knee pain [M25.562] 03/04/2018 Pelvic floor instability [M62.89] 03/04/2018 Short interval between pregnancies affecting pr*02/11/2019 10/25/2019 Acute bilateral low back pain without sciatica *11/29/2019 Anxiety and depression [F41.9, F32.A] 05/28/2022 Migraine [G43.909] 05/28/2022 Situational insomnia [F51.09] 05/28/2022 Fatigue [R53.83] 09/30/2022 resulting from in vitro fertilization* 025 Surrogate [Z33.3] 07/12/2024 History of PCOS [Z87.42] 07/12/2024 Supervision of other high risk pregnancies, sec*07/16/2024 Encounter Status:Closed by CAN BUSH on 08/06/[address] [facility] Examination level ultrasound on 07-12-2024 Indication First trimester anatomic survey resulting from in vitro fertilization, Maternal obesity, BMI >35 Impression REMOTE READ The patient is referred for a first trimester anatomy scan including nuchal translucency measurement as clinically indicated. - Single, live, intrauterine . - [place] rump length measurement is consistent with the established gestational age. - No malformations visualized on incomplete first trimester anatomic assessment. - The nuchal translucency measurement is 1.5 mm. - Not all structural malformations can be detected by ultrasound examination. Maternal Structures: Left Ovary: Size 33 mm x 19 mm x 12 mm Recommendations - A standard anatomic survey at 16 weeks can be offered and a detailed exam at 20 weeks is recommended for increased risk. Maternal Assessment Height 160 cm Height (ft) 5 ft Height (in) 3 in Physical Exam Initial weight (lb) 204 lb Initial BMI 36.14 kg/m Maternal assessment other: 4 Para 2 Method Transabdominal ultrasound examination [place] . Number of fetuses: 1 Dating GA by prior assessment 13 w + 2 d DIDIER by prior assessment: 01/15/2025 Ultrasound examination on: 07/12/2024 GA by U/S based upon: CRL GA by U/S 13 w + 3 d DIDIER by U/S: 01/14/2025 Assigned: based on stated DIDIER, selected on 07/12/2024 Assigned GA 13 w + 2 d Assigned DIDIER: 01/15/2025 General Evaluation Cardiac activity present Placenta: posterior Cord vessels: 3 vessel cord Amniotic fluid: normal amount Biometry Standard FHR 158 bpm CRL 71.6 mm 13w 3d 49% Hadlock NT 1.50 mm First Trimester Anatomy Calvarium: normal Falx cerebri: normal Choroid plexus: normal Profile: normal Nasal bone: normal Retronasal triangle: normal Maxilla: normal Mandible: normal Nuchal translucency: Unremarkable Situs: normal Cardiac position: normal Cardiac axis: normal 4-chamber view: suboptimal 4-chamber view with color: suboptimal 4-xhtcde-bewjonk view: suboptimal Abdominal cord insertion: normal Stomach: normal Kidneys: normal Bladder: normal Color doppler of perivesical umbilical arteries: normal Vertebral alignment: normal Arms: normal Hands: normal Legs: normal Feet: normal Maternal Structures Uterus / Cervix Uterus: Visualized Uterus length 113 mm Uterus width 102 mm Uterus height 97 mm Uterus Vol 585.1 cm Ovaries / Tubes / Adnexa Rt ovary: Not visualized Lt ovary: Visualized Lt ovary D1 33 mm Lt ovary D2 19 mm Lt ovary D3 12 mm Lt ovary Vol 3.9 cm Performed By: Ros Camacho RDMS, RVT Read By: Yady Boyer M.D. MATERNAL MEDICINE [facility] Radiology Study observation (narrative) [facility] HbA1c (Bld)on 07-12-2024 Average glucose Estimated from glycated hemoglobin (Bld) [Mass/Vol] 103 mg/dL [facility] Comment on above: eAG: (Estimated aver age glucose) is a calculated value from HgbA1c and is health and safety representative of the average blood glucose level in the last 2-3 month period. HbA1c (Bld) [Mass fraction] 5.2 % 4.3 - 5.6 % [facility] Comment on above: [place] Diabetes As sociation guidelines indicate that patients with HgbA1c in the range 5.7-6.4% are at increased risk for development of diabetes, and intervention by lifestyle modification may be beneficial. HgbA1c greater or equal to 6.5% is considered diagnostic of diabetes. [facility] Average glucose Estimated from glycated hemoglobin (Bld) [Mass/Vol] 103 mg/dL Normal [facility] Comment on above: Order Comment: Speci men Type: BLOOD SPECIMENOrdering Facility: [facility] Address: [address] [place] [id number] Result Comment: eAG: (Estimated average glucose) is a calculated value from HgbA1c and is health and safety representative of the average blood glucose level in the last 2-3 month period. Performed By: #### 5 5454-3 ####[facility] LABCLIA [id number] [place] [address] [place] HbA1c (Bld) [Mass fraction] 5.2 % Normal 4.3-5.[address] [facility] Comment on above: Order Comment: Speci men Type: BLOOD SPECIMENOrdering Facility: [facility] Address: [address] [place] [address] Result Comment: [place] Diabetes Association guidelines indicate that patients with HgbA1c in the range 5.7-6.4% are at increased risk for development of diabetes, and intervention by lifestyle modification may be beneficial. HgbA1c greater or equal to 6.5% is considered diagnostic of diabetes. Performed By: #### 5 5454-3 ####[facility] LABCLIA [id number] [place] [address] [place] BACTERIAL CULTURE, URINEOrde red By: Paulo Barger on 07-08-2024 Bacteria identified Cx Nom (U) 50,000-<100,000 CFU/ml Normal urogenital flip [facility] Bacteria identified Cx Nom ( U)Ordered By: Paulo Barger on 07-08-2024 [facility] C. trachomatis+N. gonorrhoea e DNA ABRIL+probe Ql (Unsp spec)on 07-08-2024 C. trachomatis rRNA ABRIL+probe Ql (Unsp spec) Not detected Not detected [facility] Interpretation and review of laboratory results Normal [facility] N. gonorrhoeae rRNA ABRIL+probe Ql (Unsp spec) Not detected Not detected [facility] This FDA-approved assay has been modified to accept rectal swabs self-collected in a healthcare setting. For self-collected rectal swabs, the test was developed and its performance characteristics determined by the [facility]'s [facility] [place] ([facility]). It has not been cleared or approved by the FDA. [facility] is regulated under CLIA as qualified to perform high-complexity testing. This test is used for clinical purposes. It should not be regarded as investigational or for research. [facility] TRICHOMONAS VAGINALIS NAATon 07-08-2024 Interpretation and review of laboratory results Normal [facility] T. vaginalis DNA ABRIL+probe Ql (Unsp spec) Not detected Not detected [facility] BACTERIAL VAGINOSIS NAATon 0 07-07-2024 Interpretation and review of laboratory results Normal [facility] Lactobacillus crispatus+gasseri+je nsenii + Gardnerella vaginalis + Atopobium vaginae rRNA ABRIL+probe Ql (Vag fld) Not detected Not detected [facility] Lactobacillus crispatus+gasseri+je nsenii + Gardnerella vaginalis + Atopobium vaginae rRNA ABRIL+probe Ql (Vag fld) Not detected Normal Not detected [facility] Comment on above: Order Comment: Speci men Type: SWABOrdering Facility: [facility] Address: [address] [place] [address] Performed By: #### B VAMP ####[facility] LABCLIA [id number] [place] [address] [place] Bacteria Ur Culton Bacteria identified Cx Nom (U) ORGANISM ID: 1 50,000-<100,000 CFU/ml Normal urogenital flip Normal [facility] Comment on above: Performed By: #### 6 30-4 ####[facility] LABCLIA [id number] [place] [address] [place] C. trachomatis+N. gonorrhoea e DNA ABRIL+probe Ql (Unsp spec)on 07-07-2024 C. trachomatis rRNA ABRIL+probe Ql (Unsp spec) Not detected Normal Not detected [facility] Comment on above: Order Comment: Speci men Type: SWABOrdering Facility: [facility] Address: [address] [place] [address] Performed By: #### 3 6902-5, SILAS ####[facility] LABCLIA [id number] [place] [address] [place] N. gonorrhoeae rRNA ABRIL+probe Ql (Unsp spec) Not detected Normal Not detected [facility] Comment on above: Order Comment: Speci men Type: SWABOrdering Facility: [facility] Address: [address] [place] [address] Performed By: #### 3 6902-5, SILAS ####[facility] LABCLIA [id number] [place] [address] [place] TRICHOMONAS VAGINALIS NAATon 07-07-2024 T. vaginalis DNA ARBIL+probe Ql (Unsp spec) Not detected Normal Not detected [facility] Comment on above: Order Comment: Speci men Type: SWABOrdering Facility: [facility] Address: [address] [place] [address] Performed By: #### 3 6902-5, SILAS ####[facility] LABCLIA [id number] [place] [address] [place] CBC W Auto Differential pane l (Bld)on 09-30-2022 Basophils (Bld) [#/Vol] 0.04 10*3/uL <0.11 k/uL [facility] Basophils/100 WBC (Bld) 0.7 % [facility] Differential cell count method Nom (Bld) Auto [facility] Eosinophils (Bld) [#/Vol] 0.18 10*3/uL <0.46 k/uL [facility] Eosinophils/100 WBC (Bld) 3.0 % [facility] Erythrocyte distribution width (RBC) [Ratio] 13.3 % 11.5 - 15.0 % [facility] Hematocrit (Bld) [Volume fraction] 38.3 % 36.0 - 46.0 % [facility] Hemoglobin (Bld) [Mass/Vol] 12.3 g/dL 11.5 - 15.5 g/dL [facility] Immature granulocytes (Bld) [#/Vol] <0.10 k/uL [facility] Immature granulocytes/100 WBC (Bld) 0.3 % [facility] Lymphocytes (Bld) [#/Vol] 1.95 10*3/uL 1.00 - 4.00 k/uL [facility] Lymphocytes/100 WBC (Bld) 32.4 % [facility] MCH (RBC) [Entitic mass] 28.4 pg 26.0 - 34.0 pg [facility] MCHC (RBC) [Mass/Vol] 32.1 g/dL 30.5 - 36.0 g/dL [facility] MCV (RBC) [Entitic vol] 88.5 fL 80.0 - 100.0 fL [facility] Monocytes (Bld) [#/Vol] 0.44 10*3/uL <0.87 k/uL [facility] Monocytes/100 WBC (Bld) 7.3 % [facility] Neutrophils (Bld) [#/Vol] 3.39 10*3/uL 1.45 - 7.50 k/uL [facility] Neutrophils/100 WBC (Bld) 56.3 % [facility] Nucleated RBC (Bld) [#/Vol] <0.01 k/uL [facility] Nucleated RBC/100 WBC (Bld) [Ratio] 0.0 /100 WBC [facility] Platelet mean volume (Bld) [Entitic vol] 9.9 fL 9.0 - 12.7 fL [facility] Platelets (Bld) [#/Vol] 265 10*3/uL 150 - 400 k/uL [facility] RBC (Bld) [#/Vol] 4.33 10*6/uL 3.90 - 5.20 m/uL [facility] WBC (Bld) [#/Vol] 6.02 10*3/uL 3.70 - 11. 00 k/uL [facility] Vital Signs Date Time Vital Sign Value Performing Clinician Yamil choudhary 01-03-2025 12:56-0400 Body mass index (BMI) [Ratio] 37.13 kg/m2 Tracie Kovacs MD Work Phone: [facility] 01-03-2025 12:56-0400 Body weight 95.07 kg Tracie Kovacs MD Work Phone: [facility] 01-03-2025 12:56-0400 Diastolic blood pressure 77 mm[Hg] Tracie Kovacs MD Work Phone: [facility] 01-03-2025 12:56-0400 Systolic blood pressure 113 mm[Hg] Tracie Kovacs MD Work Phone: [facility] 12-27-2024 09:20-0400 Diastolic blood pressure 60 mm[Hg] Chaya Fermin GENERAL MATCHER.CNM Work Phone: [facility] 12-27-2024 09:20-0400 Systolic blood pressure 106 mm[Hg] Chaya Fermin GENERAL MATCHER.CNM Work Phone: [facility] 12-06-2024 08:09-0400 Body mass index (BMI) [Ratio] 36.49 kg/m2 Chaya Fermin GENERAL MATCHER.CNM Work Phone: [facility] 12-06-2024 08:09-0400 Body weight 93.44 kg Chaya Fermin GENERAL MATCHER.CNM Work Phone: [facility] 12-06-2024 08:09-0400 Diastolic blood pressure 70 mm[Hg] Chaya Fermin GENERAL MATCHER.CNM Work Phone: [facility] 12-06-2024 08:09-0400 Systolic blood pressure 96 mm[Hg] Chaya Fermin GENERAL MATCHER.CNM Work Phone: [facility] 11-24-2024 11:08-0400 Body mass index (BMI) [Ratio] 35.96 kg/m2 Chaya Fermin GENERAL MATCHER.CNM Work Phone: [facility] 11-24-2024 11:08-0400 Body weight 92.08 kg Chaya Fermin GENERAL MATCHER.CNM Work Phone: [facility] 11-24-2024 11:08-0400 Diastolic blood pressure 68 mm[Hg] Chaya Fermin GENERAL MATCHER.CNM Work Phone: [facility] 11-24-2024 11:08-0400 Systolic blood pressure 108 mm[Hg] Chaya Fermin GENERAL MATCHER.CNM Work Phone: [facility] 11-08-2024 08:00-0400 Body mass index (BMI) [Ratio] 36.14 kg/m2 Chaya Fermin GENERAL MATCHER.CNM Work Phone: [facility] 11-08-2024 08:00-0400 Body weight 92.53 kg Chaya Fermin GENERAL MATCHER.CNM Work Phone: [facility] 11-08-2024 08:00-0400 Diastolic blood pressure 68 mm[Hg] Chaya Fermin GENERAL MATCHER.CNM Work Phone: [facility] 11-08-2024 08:00-0400 Systolic blood pressure 108 mm[Hg] Chaya Fermin GENERAL MATCHER.CNM Work Phone: [facility] 10-25-2024 11:20-0400 Body mass index (BMI) [Ratio] 36.31 kg/m2 Chaya Fermin GENERAL MATCHER.CNM Work Phone: [facility] 10-25-2024 11:20-0400 Body weight 92.99 kg Chaya Fermin GENERAL MATCHER.CNM Work Phone: [facility] 10-25-2024 11:20-0400 Diastolic blood pressure 66 mm[Hg] Chaya Fermin GENERAL MATCHER.CNM Work Phone: [facility] 10-25-2024 11:20-0400 Systolic blood pressure 112 mm[Hg] Chaya Fermin GENERAL MATCHER.CNM Work Phone: [facility] 09-27-2024 11:19-0400 Body mass index (BMI) [Ratio] 36.31 kg/m2 Chaya Fermin GENERAL MATCHER.CNM Work Phone: [facility] 09-27-2024 11:19-0400 Body weight 92.99 kg Chaya Fermin GENERAL MATCHER.CNM Work Phone: [facility] 09-27-2024 11:19-0400 Diastolic blood pressure 62 mm[Hg] Chaya Fermin GENERAL MATCHER.CNM Work Phone: [facility] 09-27-2024 11:19-0400 Systolic blood pressure 108 mm[Hg] Chaya Fermin GENERAL MATCHER.CNM Work Phone: [facility] 08-30-2024 09:10-0400 Body mass index (BMI) [Ratio] 35.96 kg/m2 Chaya Fermin GENERAL MATCHER.CNM Work Phone: [facility] 08-30-2024 09:10-0400 Body weight 92.08 kg Chaya Fermin GENERAL MATCHER.CNM Work Phone: [facility] 08-30-2024 09:10-0400 Diastolic blood pressure 72 mm[Hg] Chaya Fermin GENERAL MATCHER.CNM Work Phone: [facility] 08-30-2024 09:10-0400 Systolic blood pressure 110 mm[Hg] Chaya Fermin GENERAL MATCHER.CNM Work Phone: [facility] 08-02-2024 12:58-0400 Body mass index (BMI) [Ratio] 35.61 kg/m2 Chaya Fermin GENERAL MATCHER.CNM Work Phone: [facility] 08-02-2024 12:58-0400 Body weight 91.17 kg Chaya Fermin GENERAL MATCHER.CNM Work Phone: [facility] 08-02-2024 12:58-0400 Diastolic blood pressure 66 mm[Hg] Chaya Fermin GENERAL MATCHER.CNM Work Phone: [facility] 08-02-2024 12:58-0400 Systolic blood pressure 114 mm[Hg] Chaya Fermin GENERAL MATCHER.CNM Work Phone: [facility] 07-12-2024 10:17-0500 Body mass index (BMI) [Ratio] 36.31 kg/m2 Chaya Fermin GENERAL MATCHER.CNM Work Phone: [facility] 07-12-2024 10:17-0500 Body weight 92.99 kg Chaya Fermin GENERAL MATCHER.CNM Work Phone: [facility] 07-12-2024 10:17-0500 Diastolic blood pressure 74 mm[Hg] Chaya Fermin GENERAL MATCHER.CNM Work Phone: [facility] 07-12-2024 10:17-0500 Systolic blood pressure 110 mm[Hg] Chaya Fermin GENERAL MATCHER.CNM Work Phone: [facility] 07-07-2024 13:10-0500 Body height 160 cm Chayadario Fermin GENERAL MATCHER.CNM Work Phone: [facility] 07-07-2024 13:10-0500 Body mass index (BMI) [Ratio] 36.14 kg/m2 Chaya Zander GENERAL MATCHER.CNM Work Phone: [facility] 07-07-2024 13:10-0500 Body weight 92.53 kg Chayadario Fermin GENERAL MATCHER.CNM Work Phone: [facility] 07-07-2024 13:10-0500 Diastolic blood pressure 78 mm[Hg] Chaya Zander GENERAL MATCHER.CNM Work Phone: [facility] 07-07-2024 13:10-0500 Systolic blood pressure 110 mm[Hg] Chaya Zander GENERAL MATCHER.CNM Work Phone: [facility] 01-09-2023 07:05-0400 Body weight 80.29 kg Jasmin Boyd GENERAL MATCHER.CIVIL ENGINEERING PROJECT MANAGER Work Phone: [facility] 01-09-2023 07:05-0400 Diastolic blood pressure 76 mm[Hg] Jasmin Priesthojoseph GENERAL MATCHER.CIVIL ENGINEERING PROJECT MANAGER Work Phone: [facility] 01-09-2023 07:05-0400 Heart rate 78 /min Jasmin Boyd GENERAL MATCHER.CIVIL ENGINEERING PROJECT MANAGER Work Phone: [facility] 01-09-2023 07:05-0400 Respiratory rate 16 /min Jasmin Boyd GENERAL MATCHER.CIVIL ENGINEERING PROJECT MANAGER Work Phone: [facility] 01-09-2023 07:05-0400 SaO2% (BldA) [Mass fraction] 98 % Jasmin Boyd GENERAL MATCHER.CIVIL ENGINEERING PROJECT MANAGER Work Phone: [facility] 01-09-2023 07:05-0400 Systolic blood pressure 108 mm[Hg] Jasmin Boyd GENERAL MATCHER.CIVIL ENGINEERING PROJECT MANAGER Work Phone: [facility] 09-30-2022 08:11-0400 Body temperature 97.39 [degF] Ze Pugh DO Work Phone: [facility] 09-30-2022 08:11-0400 Body weight 76.2 kg Ze Pugh DO Work Phone: [facility] 09-30-2022 08:11-0400 Diastolic blood pressure 60 mm[Hg] Ze Pugh DO Work Phone: [facility] 09-30-2022 08:11-0400 Heart rate 80 /min Ze Pugh DO Work Phone: [facility] 09-30-2022 08:11-0400 Respiratory rate 12 /min Ze Pugh DO Work Phone: [facility] 09-30-2022 08:11-0400 Systolic blood pressure 100 mm[Hg] Ze Pugh DO Work Phone: [facility] 05-28-2022 16:33-0500 Diastolic blood pressure 72 mm[Hg] Ze Pugh DO Work Phone: [facility] 05-28-2022 16:33-0500 Systolic blood pressure 104 mm[Hg] Ze Pugh DO Work Phone: [facility] 05-28-2022 16:12-0500 Body temperature 96.6 [degF] Ze Pugh DO Work Phone: [facility] 05-28-2022 16:12-0500 Body weight 76.2 kg Ze Pugh DO Work Phone: [facility] 05-28-2022 16:12-0500 Heart rate 76 /min Ze Pugh DO Work Phone: [facility] 05-28-2022 16:12-0500 Respiratory rate 12 /min Ze Pugh DO Work Phone: [facility] 05-14-2022 09:21-0500 Body height 160 cm Shyanne Reaper GENERAL MATCHER.CIVIL ENGINEERING PROJECT MANAGER Work Phone: [facility] 05-14-2022 09:21-0500 Body weight 76.84 kg Shyanne Reaper GENERAL MATCHER.CIVIL ENGINEERING PROJECT MANAGER Work Phone: [facility] 05-14-2022 09:21-0500 Diastolic blood pressure 82 mm[Hg] Shyanne Reaper GENERAL MATCHER.CIVIL ENGINEERING PROJECT MANAGER Work Phone: [facility] 05-14-2022 09:21-0500 Systolic blood pressure 122 mm[Hg] Shyanne Reaper GENERAL MATCHER.CIVIL ENGINEERING PROJECT MANAGER Work Phone: [facility] 04-26-2022 13:36-0500 Body weight 77.11 kg Ze Pugh DO Work Phone: [facility] 04-26-2022 13:36-0500 Diastolic blood pressure 78 mm[Hg] Ze Pugh DO Work Phone: [facility] 04-26-2022 13:36-0500 Heart rate 68 /min Ze Pugh DO Work Phone: [facility] 04-26-2022 13:36-0500 Respiratory rate 16 /min Ze Pugh DO Work Phone: [facility] 04-26-2022 13:36-0500 SaO2% (BldA) [Mass fraction] 100 % Ze Pugh DO Work Phone: [facility] 04-26-2022 13:36-0500 Systolic blood pressure 122 mm[Hg] Ze Pugh DO Work Phone: [facility] 02-28-2022 09:11-0400 Body height 162.6 cm Benita Wynn GENERAL MATCHER.CIVIL ENGINEERING PROJECT MANAGER Work Phone: [facility] 02-28-2022 09:11-0400 Body temperature 98.01 [degF] Benita Wynn GENERAL MATCHER.CIVIL ENGINEERING PROJECT MANAGER Work Phone: [facility] 02-28-2022 09:11-0400 Body weight 73.03 kg Benita Wynn GENERAL MATCHER.CIVIL ENGINEERING PROJECT MANAGER Work Phone: [facility] 02-28-2022 09:11-0400 Heart rate 97 /min Benita Wynn GENERAL MATCHER.CIVIL ENGINEERING PROJECT MANAGER Work Phone: [facility] 02-28-2022 09:11-0400 Respiratory rate 16 /min Benita Wynn GENERAL MATCHER.CIVIL ENGINEERING PROJECT MANAGER Work Phone: [facility] 02-28-2022 09: SaO2% (BldA) [Mass fraction] 98 % Benita Tianna HERNANDEZ Work Phone: [facility] Encounters Encounter Date Encounter Type Care Provider Facility Start: 01-03-2025 End: 01-03-2025 Patient encounter procedure Tracie Kovacs MD Work Phone: OB/Gynecology Comment on above: 38 weeks gestation o f (HCC) (Primary Dx); Group beta Strep positive; Supervision of high risk in third trimester (HCC); Surrogate (HCC); Diet controlled gestational diabetes mellitus (GDM) in third trimester ([facility]) Start: 01-03-2025 End: 01-03-2025 ambulatory CHAYA FERMIN Facility:[facility] Start: 12-27-2024 End: 12-27-2024 Patient encounter procedure Whi Tech 1 Microbiological Lab Technician [facility] Maternal Medicine Comment on above: resulting from in vitro fertilization in first trimester (HCC) (Primary Dx); Obesity affecting in third trimester, unspecified obesity type (HCC); Diet controlled gestational diabetes mellitus (GDM) in third trimester (HCC) Supervision of high risk in third trimester (HCC) (Primary Dx); 37 weeks gestation of (HCC); Surrogate (HCC); Anemia during in third trimester (HCC); Diet controlled gestational diabetes mellitus (GDM) in third trimester (HCC); Anxiety and depression; History of PCOS; Exposure to genital herpes; resulting from in vitro fertilization in first trimester (HCC) Start: 12-27-2024 End: 12-27-2024 ambulatory ZE PUGH Facility:[facility] Start: 12-06-2024 End: 12-06-2024 E-mail encounter from caregiver Chaya Fermin APRN.CNM Work Phone: OB/Gynecology Start: 12-06-2024 End: 12-06-2024 ambulatory Chaya Fermin APRN.CNM Work Phone: OB/Gynecology Comment on above: FMLA paperwork Start: 12-06-2024 End: 12-06-2024 Patient encounter procedure Chaya Fermin APRN.CNM Work Phone: OB/Gynecology Comment on above: Supervision of high risk in third trimester (HCC) (Primary Dx); 34 weeks gestation of (HCC); Abnormal glucose in , antepartum (HCC); Anemia during in third trimester (HCC); Rubella non-immune status, antepartum (HCC); PCOS (polycystic ovarian syndrome); Surrogate (HCC); resulting from in vitro fertilization in first trimester (HCC) Start: 11-24-2024 End: 11-24-2024 Patient encounter procedure Chaya Fermin APRN.CNM Work Phone: OB/Gynecology Comment on above: Supervision of high risk in third trimester (HCC) (Primary Dx); Anemia during in third trimester (HCC); Diet controlled gestational diabetes mellitus (GDM) in third trimester (HCC); 32 weeks gestation of (HCC) Encounter for ultras ound to check growth (HCC) (Primary Dx); Obesity affecting in third trimester, unspecified obesity type (HCC); 32 weeks gestation of (HCC) Start: 11-24-2024 End: 01-04-2025 ambulatory CHAYA ZANDRE Facility:[facility] Comment on above: Insurance pre author ization Start: 11-08-2024 End: 11-08-2024 Patient encounter procedure Chaya Fermin APRN.CNM Work Phone: OB/Gynecology Comment on above: Supervision of high risk in third trimester (HCC) (Primary Dx); 30 weeks gestation of (HCC); Diet controlled gestational diabetes mellitus (GDM) in third trimester (HCC); Anemia during in third trimester (HCC); resulting from in vitro fertilization in third trimester (HCC) Start: 11-08-2024 End: 11-08-2024 ambulatory ZE PUGH Facility:[facility] Start: 11-01-2024 End: 11-01-2024 E-mail encounter from caregiver Ciarra Hubbrad RN Work Phone: Diabetic Education [facility] Start: 11-01-2024 End: 11-01-2024 Nursing evaluation of patient and report Ciarra Hubbard RN Work Phone: Diabetic Education [facility] Comment on above: Diet controlled gest ational diabetes mellitus (GDM) in third trimester (HCC) Start: 11-01-2024 End: 11-01-2024 ambulatory Ciarra Hubbard RN Work Phone: Diabetic Education [facility] Comment on above: Gestational diabetes booklets Start: 10-27-2024 End: 12-27-2024 Follow-up encounter Chaya Fermin APRN.CNM Work Phone: OB/Gynecology Start: 10-27-2024 End: 10-27-2024 ambulatory ZE PUGH Facility:[facility] Start: 10-26-2024 End: 12-26-2024 Follow-up encounter Chaya Fermin APRN.CNM Work Phone: OB/Gynecology Start: 10-25-2024 End: 12-25-2024 Follow-up encounter Nelly Solorzano MD Work Phone: OB/Gynecology Start: 10-25-2024 End: 10-25-2024 Patient encounter procedure Whi Tech 1 Microbiological Lab Technician [facility] Maternal Medicine Comment on above: Encounter for ultras ound to check growth (HCC) (Primary Dx); Obesity affecting in third trimester, unspecified obesity type (HCC); 28 weeks gestation of (HCC) resulting from in vitro fertilization in third trimester (HCC) (Primary Dx); Supervision of high risk in third trimester (HCC); 28 weeks gestation of (HCC) Start: 10-25-2024 End: 10-25-2024 ambulatory ZE PUGH Facility:[facility] Start: 10-17-2024 End: 10-19-2024 Refill Laine Mccollum APRN.CNP Work Phone: Neurology Comment on above: Refill Request Start: 10-16-2024 End: 10-16-2024 ambulatory Marybeth Escamilla Facility:[facility] Start: 09-27-2024 End: 11-27-2024 Follow-up encounter Nelly Solorzano MD Work Phone: OB/Gynecology Start: 09-27-2024 End: 09-27-2024 Patient encounter procedure Mayme E Emanuel MD Work Phone: Pediatric Cardiology Comment on above: Supervision of other high risk pregnancies, second trimester (HCC) (Primary Dx); Surrogate (HCC); Anxiety and depression; 24 weeks gestation of (HCC); Screening for diabetes mellitus Start: 09-27-2024 End: 09-27-2024 ambulatory Moses Caruso MD Work Phone: Pediatric Cardiology Start: 09-14-2024 End: 09-14-2024 Telephone encounter [facility] Provider Pediatric Cardiology Comment on above: Consult ( echo ) Start: 09-07-2024 End: 09-15-2024 Telephone encounter Chaya Fermin APRN.CNM Work Phone: OB/Gynecology Comment on above: Request Outside [facility] Records Start: 08-30-2024 End: 08-30-2024 ambulatory CHAYA FERMIN Facility:[facility] Start: 08-30-2024 End: 08-30-2024 Patient encounter procedure Whi Tech 1 Microbiological Lab Technician [facility] Maternal Medicine Comment on above: Encounter for anatomic survey (HCC) (Primary Dx); 20 weeks gestation of (HCC); resulting from in vitro fertilization in second trimester (HCC) Supervision of other high risk pregnancies, second trimester (HCC) (Primary Dx); Anxiety and depression; Surrogate (HCC); 20 weeks gestation of (HCC); 12 weeks gestation of (HCC) Start: 08-03-2024 End: 08-03-2024 ambulatory Laine Mccollum ADVID Work Phone: Neurology Comment on above: Migraine without aur a and without status migrainosus, not intractable (Primary Dx) Start: 08-03-2024 End: 08-03-2024 Telemedicine consultation with patient Laine Mccollum DAVID Work Phone: Neurology Start: 08-02-2024 End: 08-02-2024 ambulatory ZE PUGH Facility:[facility] Start: 08-02-2024 End: 08-02-2024 Patient encounter procedure Chaya Fermin APRN.CNM Work Phone: OB/Gynecology Comment on above: Supervision of other high risk pregnancies, second trimester (Primary Dx); 16 weeks gestation of ; Surrogate ; Anxiety and depression; History of PCOS; Exposure to genital herpes; resulting from in vitro fertilization in first trimester; Headaches Start: 07-22-2024 End: 2024 Telephone encounter Ze Pugh DO Work Phone: [facility] [place] Comment on above: Refill Request Start: 07-12-2024 End: 07-12-2024 ambulatory [facility] Facility:[facility] Start: 07-12-2024 End: 07-12-2024 Patient encounter procedure Whi Tech 1 Microbiological Lab Technician [facility] Maternal Medicine Comment on above: Encounter for antena maria de jesus screening for malformation using ultrasound (Primary Dx); 13 weeks gestation of Supervision of other high risk , antepartum (Primary Dx); 13 weeks gestation of ; Anxiety and depression; resulting from in vitro fertilization in first trimester; Surrogate ; History of PCOS Start: 07-12-2024 End: 07-12-2024 [facility] Facility:[facility] Start: 07-08-2024 End: 09-07-2024 Follow-up encounter Kasandra Guo APRN.CNP Work Phone: OB/Gynecology Start: 07-07-2024 End: 07-07-2024 ambulatory ZE PUGH Facility:[facility] [facility] Start: 07-07-2024 End: 07-07-2024 Patient encounter procedure Chaya Fermin APRN.CNM Work Phone: OB/Gynecology Comment on above: Supervision of other high risk pregnancies, second trimester (Primary Dx); Vaginal discharge; Surrogate ; resulting from in vitro fertilization in first trimester; Exposure to genital herpes; 12 weeks gestation of Start: 01-01-2024 End: 01-01-2024 Patient encounter procedure Perla Bailey OD Work Phone: Ophthalmology Comment on above: Myopia, bilateral (P rimary Dx); Regular astigmatism of both eyes; Dry eye syndrome of bilateral lacrimal glands Start: 04-30-2023 End: 04-30-2023 Patient encounter procedure Lolis Patrick APRN.CIVIL ENGINEERING PROJECT MANAGER Work Phone: [facility] Comment on above: Procedure not karlo d out (Primary Dx) Start: 04-29-2023 End: 04-29-2023 ambulatory Neda Carr GENERAL MATCHER.CIVIL ENGINEERING PROJECT MANAGER Work Phone: Telemedicine Comment on above: Treatment not availa ble (Primary Dx) Start: 02-05-2023 ambulatory Jasmin Arnaldojoseph GENERAL MATCHER.CIVIL ENGINEERING PROJECT MANAGER Work Phone: [facility] [place] Comment on above: Video call not worki ng Start: 01-09-2023 End: 01-09-2023 Patient encounter procedure Jasmin Boyd GENERAL MATCHER.CIVIL ENGINEERING PROJECT MANAGER Work Phone: [facility] [place] Comment on above: Wellness examination (Primary Dx); Anxiety and depression; PCOS (polycystic ovarian syndrome); Other migraine without status migrainosus, not intractable; Situational insomnia; Vitamin D deficiency; Hyperlipidemia LDL goal <100; Screening-pulmonary TB Start: 01-09-2023 End: 01-09-2023 Patient encounter status Jasmin Boyd GENERAL MATCHER.CIVIL ENGINEERING PROJECT MANAGER Work Phone: [facility] Work Phone: Start: 10-29-2022 Refill Ze garcia DO Work Phone: [facility] Comment on above: Refill Request Start: 10-03-2022 Telephone encounter Ze horton DO Work Phone: [facility] Comment on above: Results Start: 09-30-2022 End: 09-30-2022 Patient encounter procedure Ze Pugh DO Work Phone: [facility] [place] Comment on above: Anxiety and depressi on (Primary Dx); Situational insomnia; Other migraine without status migrainosus, not intractable; Fatigue, unspecified type; PCOS (polycystic ovarian syndrome); Well adult exam Start: 09-30-2022 End: 09-30-2022 Patient encounter status Ze Pugh DO Work Phone: [facility] [place] Start: 08-16-2022 End: 03-24-2023 Subsequent hospital visit by physician Mri 7 Radio Main Q (I-Stat/1.5t/3t) Work Phone: MRI Q Comment on above: Primary dysmenorrhea [N94.4] Start: 06-08-2022 Refill Ze garcia DO Work Phone: [facility] [place] Comment on above: Refill Request Start: 05-28-2022 End: 05-28-2022 Patient encounter procedure Ze Pugh DO Work Phone: [facility] [place] Comment on above: Anxiety and depressi on (Primary Dx); Situational insomnia; Other migraine without status migrainosus, not intractable Start: 05-14-2022 End: 05-14-2022 Patient encounter procedure Shyanne Christie APRN.CNP Work Phone: Gynecology Comment on above: Chronic pelvic pain in female (Primary Dx); Pelvic pain in female; Primary dysmenorrhea; Pelvic and perineal pain; High-tone pelvic floor dysfunction; Deep dyspareunia; Stress incontinence, female Start: 04-26-2022 End: 04-26-2022 Patient encounter procedure Ze Pugh DO Work Phone: [facility] Comment on above: Anxiety and depressi on (Primary Dx) Start: 03-26-2022 Telephone encounter Shyanne mota APRN.CNP Work Phone: Gynecology Comment on above: 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 (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/) Start: 03-12-2022 End: 03-12-2022 Manual pelvic examination Chaya Fermin APRN.CNM Work Phone: OB/Gynecology Comment on above: Pelvic pain in femal e (Primary Dx); Dysmenorrhea Start: 03-12-2022 End: 03-12-2022 Telemedicine consultation with patient Chaya Fermin APRN.CNM Work Phone: [place] [facility] Start: 02-28-2022 End: 02-28-2022 Patient encounter procedure Benita Wynn APRN.CNP Work Phone: [facility] Comment on above: Corneal irritation o f right eye (Primary Dx) Start: 12-08-2021 Refill Ann-Marie Torres APR N.CIVIL ENGINEERING PROJECT MANAGER Work Phone: Gastroenterology Comment on above: Refill Request Start: 12-07-2021 Refill Ann-Marie Torres APR N.CIVIL ENGINEERING PROJECT MANAGER Work Phone: Gastroenterology Comment on above: Refill Request Start: 12-07-2021 Refill Ann-Marie Torres APR N.CIVIL ENGINEERING PROJECT MANAGER Work Phone: Gastroenterology Comment on above: Refill Request Start: 11-03-2021 Refill Jasmin Tannhof GENERAL MATCHER.CIVIL ENGINEERING PROJECT MANAGER Work Phone: [facility] [place] Comment on above: Refill Request Start: 10-05-2021 Refill Jasmin Tannhof GENERAL MATCHER.CIVIL ENGINEERING PROJECT MANAGER Work Phone: [facility] [place] Comment on above: Refill Request Start: 10-01-2021 ambulatory Perla mota OD Work Phone: Ophthalmology Comment on above: Contact trials Start: 09-13-2021 Phys/qhp online evaluation & management service Roxana De Jesus GENERAL MATCHER.CIVIL ENGINEERING PROJECT MANAGER Work Phone: Telemedicine Comment on above: Cough (Primary Dx) Start: 08-31-2021 End: 08-31-2021 Patient encounter procedure Perla Bailey OD Work Phone: Ophthalmology Comment on above: Myopia, bilateral (P rimary Dx); Dry eye syndrome of bilateral lacrimal glands Start: 08-31-2021 Phys/qhp online evaluation & management service Brayan Rossi GENERAL MATCHER.CIVIL ENGINEERING PROJECT MANAGER Work Phone: Telemedicine Comment on above: Acute rhinosinusitis (Primary Dx) Start: 08-16-2021 Refill Ann-Marie Torres APR N.CIVIL ENGINEERING PROJECT MANAGER Work Phone: Gastroenterology Comment on above: Refill Request Start: 02-28-2021 Telephone encounter Ze horton DO Work Phone: [facility] [place] Comment on above: UTI Start: 09-18-2017 End: 06-22-2018 Patient requested procedure Perla Bailey OD Work Phone: [facility] Procedures Date Procedure Procedure Detail Performing Clinician Start: 01-03-2025 Urnls dip stick/tabl et rgnt non-auto w/o micrscp Tracie Kovacs MD Work Phone: Start: 12-27-2024 Us preg uterus after 1st trimest 1/ gestation Chaya Fermin APRN.CNSrinivas Work Phone: Start: 12-27-2024 Urnls dip stick/tabl et rgnt non-auto w/o micrscp Chaya Fermin APRN.CNM Work Phone: Start: 12-06-2024 Urnls dip stick/tabl et rgnt non-auto w/o micrscp Chaya Fermin APRN.CNSrinivas Work Phone: Start: 11-24-2024 Us preg uterus after 1st trimest 05/26 gestation Chaya Fermin APRN.CNSrinivas Work Phone: Start: 10-25-2024 Antibody screen CHAYA FERMIN Comment on above: Order Comment: Speci men Type: BLOOD SPECIMEN Ordering Facility: [facility] Address: [address] [place] [address] Performed By: #### T SPN #### CC MAIN BLOOD BANK [facility] [id number] [address] [place] [address] [place] [address] [place] Start: 10-25-2024 Us preg uterus after 1st trimest / gestation Chaya Fermin APRN.CNM Work Phone: Start: 08-30-2024 Us preg uterus after 1st trimest / gestation Chaya Fermin APRN.CNSrinivas Work Phone: Start: 07-12-2024 Us preg uterus after 1st trimest 1/1st gestation Chaya Fermin APRN.CNM Work Phone: Start: 07-07-2024 BACTERIAL VAGINOSIS NAAT Chaya Fermin APRN.CNM Work Phone: Start: 07-07-2024 Iadna chlamydia trachomatis amplified probe tq Chaya Fermin APRN.CNM Work Phone: Plan of Treatment Date Care Activity Detail Author Start: 08-03-2029 Urine microalbumin profile [facility] Start: 03-01-2027 HPV TESTING HPV TESTING [facility] Start: 03-01-2027 PAP TESTING PAP TESTING [facility] Start: 03-01-2027 Screening for malignant neoplasm of cervix Cervical Cancer Screening [facility] Start: 01-05-2025 End: 01-05-2025 Patient encounter procedure 01/05/2025 11:15 AM EDT Routine Office Visit OB/Gynecology [address] [place] [address] Chaya Fermin APRN.CNM [address] [place] [address] OB OB/Gynecology Comment on above: OB Start: 01-03-2025 End: 01-03-2025 Patient encounter procedure 01/03/2025 2:50 PM EDT Routine Office Visit OB/Gynecology [address] [place] [address] Tracie Kovacs MD [address] [place] [address] NST/OB OB/Gynecology Comment on above: NST/OB Start: 01-03-2025 End: 01-03-2025 Patient encounter procedure 01/03/2025 12:45 PM EDT Office Visit [facility] Ophthalmology [address] [place] [address] Perla Bailey, OD [address] [place] [address] complete with cl eval Ophthalmology Comment on above: complete with cl eval Start: 01-03-2025 End: 01-03-2025 Patient encounter procedure Ophthalmology Comment on above: complete with cl eval NST/OB Start: 12-27-2024 End: 12-27-2024 Patient encounter procedure OB/Gynecology Comment on above: OB Growth Start: 12-23-2024 End: 12-23-2024 Patient encounter procedure Maternal Medicine Comment on above: Growth OB OB- fmla paperwork c ompleted and copy placed in chart prep paper Start: 12-06-2024 End: 12-06-2024 Patient encounter procedure 12/06/2024 8:00 AM EDT Routine Office Visit OB/Gynecology [address] [place] [address] Chaya Fermin APRN.CN [address] [place] [address] OB OB/Gynecology Comment on above: OB Start: 11-29-2024 End: 11-29-2024 Follow-up encounter 11/29/2024 9:00 AM EDT [facility] Diabetic Education [facility] [address] [place] [id number] [place] [address] [place] [address] 1 mo GDM follow up Diabetic Education [facility] Comment on above: 1 mo GDM follow up Start: 11-25-2024 End: 11-25-2024 Nutrition therapy 11/25/2024 10:30 AM EDT [facility] [address] [place] [address] Eduarda Barboza, RD [address] [place] [address] None [facility] Comment on above: None Start: 11-24-2024 End: 02-23-2025 Ferritin [Mass/volume] in Serum or Plasma [facility] Comment on above: Expected: 11/24/2024, Expires: Start: 11-24-2024 End: 02-23-2025 Iron and Iron binding capacity panel - Serum or Plasma [facility] Work Phone: Comment on above: Expected: 11/24/2024, Expires: Start: 11-24-2024 End: 11-24-2024 Patient encounter procedure Maternal Medicine Comment on above: Growth OB Start: 11-24-2024 End: 11-24-2024 ambulatory 11/24/2024 10:00 AM EDT Results Only [place] [facility] [address] [place] [address] [place] Gudino [facility] Start: 11-16-2024 End: 11-16-2024 Patient encounter procedure 11/16/2024 2:00 PM EDT Routine Office Visit Maternal Medicine [address] [place] [address] growth Maternal Medicine Comment on above: growth Start: 11-08-2024 End: 02-07-2025 Hepatitis B virus surface Ag [Presence] in Serum HEPATITIS B SURFACE ANTIGEN Lab Routine Supervision of high risk in third trimester (HCC) 30 weeks gestation of (HCC) Expected: 11/08/2024, Expires: 02/07/2025 [facility] Comment on above: Expected: 11/08/2024, Expires: Start: 11-08-2024 End: 02-07-2025 HIV 1+2 Ab [Presence] in Serum or Plasma by Immunoassay HIV 1/2 COMBO WITH REFLEX TO DIFFERENTIATION Lab Routine Supervision of high risk in third trimester (HCC) 30 weeks gestation of (HCC) Expected: 11/08/2024, Expires: 02/07/2025 [facility] Work Phone: Comment on above: Expected: 11/08/2024, Expires: Start: 11-08-2024 End: 02-07-2025 RUBELLA IGG ANTIBODY RUBELLA IGG ANTIBODY Lab Routine Supervision of high risk in third trimester (HCC) 30 weeks gestation of (HCC) Expected: 11/08/2024, Expires: 02/07/2025 [facility] Comment on above: Expected: 11/08/2024, Expires: Start: 11-08-2024 End: 11-08-2024 Patient encounter procedure 11/08/2024 8:00 AM EDT Routine Office Visit OB/Gynecology [address] [place] [address] Chaya Fermin APRN.CNM [address] [place] [address] OB OB/Gynecology Comment on above: OB Start: 10-27-2024 End: 10-27-2024 ambulatory 10/27/2024 7:15 AM EDT Results Only [place] [facility] [address] [place] [address] Abnormal glucose in , antepartum ([facility]) [O99.810] [facility] Comment on above: Abnormal glucose in , antepartu m ([facility]) [O99.810] Start: 10-25-2024 End: 10-25-2024 Patient encounter procedure Maternal Medicine Comment on above: Growth Start: 10-25-2024 End: 10-25-2024 ambulatory 10/25/2024 10:15 AM EDT Results Only [place] [facility] [address] [place] [address] Glucose Test [place] [facility] Comment on above: Glucose Test Start: 09-27-2024 End: 12-27-2024 ANEMIA REFLEX PANEL ANEMIA REFLEX PANEL Lab Routine Supervision of other high risk pregnancies, second trimester (HCC) Surrogate (HCC) Anxiety and depression 24 weeks gestation of (HCC) Expected: 09/27/2024, Expires: 12/27/2024 [facility] Comment on above: Expected: 09/27/2024, Expires: Start: 09-27-2024 End: 09-27-2025 GESTATIONAL GLUCOSE SCREEN, 1-HOUR, 50 GRAM, NON-FASTING GESTATIONAL GLUCOSE SCREEN, 1-HOUR, 50 GRAM, NON-FASTING Lab Routine Supervision of other high risk pregnancies, second trimester (HCC) Surrogate (HCC) Anxiety and depression 24 weeks gestation of ([facility]) Screening for diabetes mellitus Expected: 09/27/2024, Expires: 09/27/2025 [facility] Work Phone: Comment on above: Expected: 09/27/2024, Expires: Start: 09-27-2024 End: 09-27-2025 SYPHILIS TREPONEMAL W/REFLEX SYPHILIS TREPONEMAL W/REFLEX Lab Routine Supervision of other high risk pregnancies, second trimester (HCC) Surrogate (HCC) Anxiety and depression 24 weeks gestation of (HCC) Expected: 09/27/2024, Expires: 09/27/2025 [facility] Comment on above: Expected: 09/27/2024, Expires: Start: 09-27-2024 End: 12-27-2024 TYPE + SCREEN TYPE + SCREEN Blood Bank Routine Supervision of other high risk pregnancies, second trimester (HCC) Surrogate (HCC) Anxiety and depression 24 weeks gestation of (HCC) Expected: 09/27/2024, Expires: 12/27/2024 [facility] Comment on above: Expected: 09/27/2024, Expires: Start: 09-27-2024 End: 09-27-2024 ambulatory 09/27/2024 9:00 AM EDT Procedure Pediatric Cardiology [address] [place] [address] Moses Caruso MD [address] [place], [place] [id number] single 2Supervision of other high risk pregnancies, second trimester (HCC) [O09.892] Pediatric Cardiology Comment on above: single 2Supervision of other high risk pregnancies, second trimester (HCC) [O09.892] Start: 09-27-2024 End: 09-27-2024 Patient encounter procedure OB/Gynecology Comment on above: OB single Start: 08-30-2024 End: 08-30-2024 Patient encounter procedure Maternal Medicine Comment on above: Anatomy Anatomy/OB Start: 08-03-2024 End: 08-03-2024 ambulatory 08/03/2024 7:00 AM EDT [facility] Neurology [address] [address] Laine Mccollum APRN.CIVIL ENGINEERING PROJECT MANAGER [address] [address] Supervision of other high risk pregnancies, second trimester [O09.892]; Other migraine without status migrainosus, not intractable [G43.809] Neurology Comment on above: Supervision of other high risk pregnanci es, second trimester [O09.892]; Other migraine without status migrainosus, not intractable [G43.809] Start: 08-02-2024 End: 08-02-2024 Patient encounter procedure 08/02/2024 1:00 PM EDT Routine Office Visit OB/Gynecology [address] [place] [address] Chaya Fermin APRN.CNM [address] [place], [place] [address] OB OB/Gynecology Comment on above: OB Start: 07-07-2024 End: 07-07-2025 OBSTETRIC ULTRASOUND WHI OBSTETRIC ULTRASOUND WHI Anc Imaging Routine Supervision of other high risk pregnancies, second trimester 12 weeks gestation of Expected: 07/07/2024, Expires: 07/07/2025 [facility] Work Phone: Comment on above: Expected: 07/07/2024, Expires: Start: 01-25-2024 Covid-19 Vaccine ( season) Covid-19 Vaccine ( season) [facility] Start: 01-10-2024 HEPATITIS B (1 of 3 - 3-dose series) HEPATITIS B (1 of 3 - 3-dose series) [facility] Comment on above: Postponed from 1990 (Declined at t his time) Start: 01-10-2024 Hepatitis B Vaccine (1 of 3 - 19+ 3-dose series) Hepatitis B Vaccine (1 of 3 - 19+ 3-dose series) [facility] Comment on above: Postponed from 2009 (Declined at t his time) Start: 01-10-2024 Hepatitis B Vaccine (1 of 3 - 3-dose series) Hepatitis B Vaccine (1 of 3 - 3-dose series) [facility] Comment on above: Postponed from 1990 (Declined at t his time) Start: 10-01-2023 COVID-19 VACCINE (#1) COVID-19 VACCINE (#1) [facility] Comment on above: Postponed from 02/06/1991 (Declined at t his time) Start: 01-24-2023 Covid-19 Vaccine (2022- season) Covid-19 Vaccine ( season) [facility] Start: 01-09-2023 End: 03-11-2023 25-hydroxyvitamin D3 [Mass/volume] in Serum or Plasma [facility] Work Phone: Comment on above: Expected: 01/09/2023, Expires: Start: 01-09-2023 End: 03-11-2023 BLOOD TB SCREEN [facility] Work Phone: Comment on above: Expected: 01/09/2023, Expires: Start: 01-09-2023 End: 03-11-2023 Lipid 1996 panel - Serum or Plasma [facility] Work Phone: Comment on above: Expected: 01/09/2023, Expires: Start: 09-30-2022 End: 11-30-2022 25-hydroxyvitamin D3 [Mass/volume] in Serum or Plasma [facility] Work Phone: Comment on above: Expected: 09/30/2022, Expires: Start: 09-30-2022 End: 11-30-2022 Cobalamin (Vitamin B12) [Mass/volume] in Serum or Plasma [facility] Work Phone: Comment on above: Expected: 09/30/2022, Expires: Start: 09-30-2022 End: 11-30-2022 Comprehensive metabolic 2000 panel - Serum or Plasma [facility] Work Phone: Comment on above: Expected: 09/30/2022, Expires: 3 Start: 09-30-2022 End: 11-30-2022 Hemoglobin A1c in Blood [facility] Work Phone: Comment on above: Expected: 09/30/2022, Expires: 3 Start: 09-30-2022 End: 11-30-2022 Insulin [Units/volume] in Serum or Plasma [facility] Work Phone: Comment on above: Expected: 09/30/2022, Expires: 3 Start: 09-30-2022 End: 11-30-2022 Lipid 1996 panel - Serum or Plasma [facility] Work Phone: Comment on above: Expected: 09/30/2022, Expires: 3 Start: 09-30-2022 End: 11-30-2022 Thyrotropin [Units/volume] in Serum or Plasma [facility] Work Phone: Comment on above: Expected: 09/30/2022, Expires: 3 Start: 09-30-2022 End: 11-30-2022 Thyroxine (T4) free [Mass/volume] in Serum or Plasma [facility] Work Phone: Comment on above: Expected: 09/30/2022, Expires: 3 Start: 09-30-2022 End: 11-30-2022 Triiodothyronine (T3) Free [Mass/volume] in Serum or Plasma [facility] Work Phone: Comment on above: Expected: 09/30/2022, Expires: 3 Start: 09-18-2022 PAP TESTING PAP TESTING [facility] Start: 05-26-2021 DEPRESSION ASSESSMENT DEPRESSION ASSESSMENT [facility] Start: 08-09-2020 HPV TESTING HPV TESTING [facility] Start: 2017 HPV Vaccine (1 - 3-dose SCDM series) HPV Vaccine (1 - 3-dose SCDM series) [facility] Start: 2009 Hepatitis B Vaccine (1 of 3 - 19+ 3-dose series) Hepatitis B Vaccine (1 of 3 - 19+ 3-dose series) [facility] Start: 2002 Adult depression screening assessment DEPRESSION SCREENING [facility] Start: 08-07-1995 COVID-19 VACCINE (#1) COVID-19 VACCINE (#1) [facility] Start: 08-07-1995 COVID-19 VACCINE (1) COVID-19 VACCINE (1) [facility] Start: 02-06-1991 COVID-19 VACCINE (#1) COVID-19 VACCINE (#1) [facility] Start: 1990 HEPATITIS B (1 of 3 - 3-dose series) HEPATITIS B (1 of 3 - 3-dose series) [facility] End: 08-30-2025 ECHO ECHO Cardiology Routine Supervision of other high risk pregnancies, second trimester (HCC) Surrogate (HCC) 20 weeks gestation of (HCC) 1 Occurrences starting 08/30/2024 until 08/30/2025 [facility] Work Phone: Comment on above: 1 Occurrences starting 08/30/2024 until 08/30/2025 nonstress test NON-S TRESS TEST Procedures Routine Supervision of high risk in third trimester (HCC) Surrogate (HCC) 37 weeks gestation of (HCC) Ordered: 12/27/2024 [facility] Work Phone: Comment on above: Ordered: 12/27/2024 End: 09-02-2025 MR Brain WO contrast MRI BRAIN WO IVCON Radiology Routine Migraine without aura and without status migrainosus, not intractable 1 Occurrences starting 08/03/2024 until 09/02/2025 [facility] Work Phone: Comment on above: 1 Occurrences starting 08/03/2024 until 09/02/2025 End: 06-13-2023 Mri pelvis w/o & w/contrast material MRI FEMALE PELVIS WO/W IVCON Radiology Routine Primary dysmenorrhea Pelvic and perineal pain Deep dyspareunia 1 Occurrences starting 05/14/2022 until 06/13/2023 [facility] Work Phone: Comment on above: 1 Occurrences starting 05/14/2022 until 06/13/2023 End: 08-16-2022 Mri pelvis w/o & w/contrast material [facility] Work Phone: Comment on above: 1 Occurrences starting 08/16/2022 until 08/16/2022 End: 08-14-2025 OBSTETRIC ULTRASOUND WHI OBSTETRIC ULTRASOUND WHI Anc Imaging Routine Supervision of high risk in third trimester ([facility]) Obesity affecting in third trimester, unspecified obesity type (HCC) Once per month for 4 Occurrences starting 08/30/2024 until 08/14/2025 [facility] Work Phone: Comment on above: Once per month for 4 Occurrences startin g 08/30/2024 until 08/14/2025 End: 01-18-2025 OBSTETRIC ULTRASOUND WHI OBSTETRIC ULTRASOUND WHI Anc Imaging Routine Diet controlled gestational diabetes mellitus (GDM) in third trimester ([facility]) Once per month for 5 Occurrences starting 10/27/2024 until 01/18/2025 [facility] Work Phone: Comment on above: Once per month for 5 Occurrences startin g 10/27/2024 until 01/18/2025 ROUTINE, GR OUP B STREPTOCOCCUS BY PCR ROUTINE, GROUP B STREPTOCOCCUS BY PCR Microbiology Routine Supervision of high risk in third trimester ([facility]) 12/27/2024 9:41 AM EDT [facility] URINE OB DIP B/O URINE OB DIP B/ O Lab Routine resulting from in vitro fertilization in third trimester ([facility]) Supervision of high risk in third trimester ([facility]) 28 weeks gestation of ([facility]) Ordered: 10/25/2024 [facility] Work Phone: Comment on above: Ordered: 10/25/2024 [facility] Immunizations Immunization Date Immunization Notes Care Provider Maxine rollins 08-04-2019 tetanus toxoid, redu kathy diphtheria toxoid, and acellular pertussis vaccine, adsorbed Ann-Marie Torres GENERAL MATCHER.CIVIL ENGINEERING PROJECT MANAGER Work Phone: [facility] Work Phone: 03-30-2019 influenza, injectabl e, quadrivalent, contains preservative Ann-Marie Torres GENERAL MATCHER.CIVIL ENGINEERING PROJECT MANAGER Work Phone: [facility] 04-13-2018 tetanus toxoid, redu kathy diphtheria toxoid, and acellular pertussis vaccine, adsorbed Ann-Marie Torres APRN.CIVIL ENGINEERING PROJECT MANAGER Work Phone: [facility] 02-17-2018 influenza virus vaccine, unspecified formulation Ann-Marieaman Torres TAB.CIVIL ENGINEERING PROJECT MANAGER Work Phone: [facility] Payers Date Payer Category Payer Self-pay 2024 Unknown [id number] 2024 Unknown [id number] 2022 Private Health Insurance [id number] 2022 Unknown [id number] 2022 Unknown [id number] 2019 Medicaid [place] [employer] [place] [employer] [id number] 2019-Present [phone] [address] [place] [address] Medicaid [id number] 2019 Medicaid [id number] Unknown [id number] Social History Date Type Detail Facility Start: 02-28-2022 Tobacco smoking stat [facility] Never smoked tobacco [facility] Start: 06-08-2021 End: 11-24-2024 Alcohol intake Ex-drinker (finding) [facility] Start: 06-27-2020 End: 04-25-2022 History SDOH Alcohol Frequency 2 [facility] Start: 06-27-2020 End: 01-20-2022 History SDOH Alcohol Std Drinks 1 [facility] Start: 09-18-2017 History SDOH Alcohol Comment occasionally, not while [facility] Start: 06-27-2020 End: 04-25-2022 History SDOH Social Connections Phone 5 [facility] Start: 06-27-2020 History SDOH Social Connections Get Together 4 [facility] Start: 06-27-2020 End: 04-25-2022 History SDOH Social Connections Anabaptism 3 [facility] Start: 06-27-2020 History SDOH Physica l Activity MPS 9 [facility] Start: 06-27-2020 Education 17 [facility] Start: 1990 Sex Assigned At Not on file [facility] Start: 08-10-2021 End: 08-20-2021 Exposure to SARS-CoV-2 (event) Unable to assess [facility] Work Phone: Start: 02-28-2022 Tobacco use and exposure Smoke less tobacco non-user [facility] Start: 01-20-2022 End: 04-25-2022 History SDOH Physical Activity DPW 0 [facility] Start: 02-18-2022 End: 04-26-2022 Exposure to SARS-CoV-2 (event) Not sure [facility] Work Phone: Start: 04-25-2022 End: 07-07-2024 History of Social function [facility] Start: 04-25-2022 End: 07-07-2024 Social connection and isolation panel [facility] Do you belong to any clubs or organizations such as islam groups, unions, fraternal or athletic groups, or school groups? No [facility] Are you now , , , , never or living with a partner? [facility] How often to you hav e a drink containing alcohol? 2-4 times a month [facility] How many standard dr inks containing alcohol do you have on a typical day? 1 or 2 [facility] How often do you hav e 6 or more drinks on 1 occasion? Never [facility] Start: 04-26-2012 How hard is it for y ou to pay for the very basics like food, housing, medical care, and heating Not hard at all [facility] Do you feel stress - tense, restless, nervous, or anxious, or unable to sleep at night because your mind is troubled all the time - these days [OSQ] Very much [facility] (I/We) worried wheth er (my/our) food would run out before (I/we) got money to buy more. Never true [facility] Do you belong to any clubs or organizations such as islam groups, unions, fraternal or athletic groups, or school groups? Yes [facility] How often to you hav e a drink containing alcohol? Monthly or less [facility] Start: 04-24-2024 [facility] Medical Equipment Procedure Code Equipment Code Equipment Origin al Text Equipment Identifier Dates [id number], [id number] Start: 02-28-2022 End: 02-28-2022 Goals Date Patient Goal Desired Activity /State Personal health goal Functional Status Date Assessment Result Facility 06-22-2014 Are you deaf, or do you have serious difficulty hearing No 06/22/2014 7:59 AM Violeta Curran Cma No [facility] 06-22-2014 Are you blind, or do you have serious difficulty seeing, even when wearing glasses No 06/22/2014 7:59 AM Violeta Curran Cma No [facility] 06-22-2014 Do you have serious difficulty walking or climbing stairs No 06/22/2014 7:59 AM Violeta Curran Cma No [facility] 06-22-2014 Do you have difficul ty dressing or bathing No 06/22/2014 7:59 AM Violeta Curran Cma No [facility] 06-22-2014 Because of a physica l, mental, or emotional condition, do you have difficulty doing errands alone such as visiting a physician's office or shopping No 06/22/2014 7:59 AM Violeta Curran Cma No [facility] Mental Status Date Assessment Result Facility 06-22-2014 Because of a physica l, mental, or emotional condition, do you have serious difficulty concentrating, remembering, or making decisions No 06/22/2014 7:59 AM Violeta Curran Cma No [facility] Clinical Notes 02-11-2019 to 01-04-2025 Telephone Encounter - Kandy Rivers RN - 01/04/2025 8:39 AM EDTTelephone Encounter - Kandy Rivers RN - 01/04/2025 8:39 AM EDTTelephone Encounter - Tracie Garza RN - 12/29/2024 9:58 AM EDT Note Date & Type Note Facility 01-04-2025 Telephone encounter Note Update per Pt on 01/03/25- Pt states [facility] is denying coverage at [facility] and [facility] agency will be covering charges. Fax received from [facility] 01/03/25, letter states they do not have an in-network provider able to render the services needed & they will not cover all or part of the services requested because it is not medically necessary. Denial information given to MARVIN to review. Kandy Rivers RN [facility] 01-04-2025 Miscellaneous Notes Update per Pt on 01/03/25- Pt states [facility] is denying coverage at [facility] and [facility] agency will be covering charges. Fax received from [facility] 01/03/25, letter states they do not have an in-network provider able to render the services needed & they will not cover all or part of the services requested because it is not medically necessary. Denial information given to MARVIN to review. Kandy Rivers RN [facility] Patient financial sales advisor returned my call from yesterday. Was told that [facility] insurance is not accepted there unless patient came in through the Emergency Room. Called and spoke with patient. She did speak with [facility] earlier in her and their department suggested to her that we complete forms through her insurance - just as we have been doing. Notified patient that we did resubmit the forms again yesterday. Patient stated that regardless, she is planning to deliver with [facility]. Out of pocket financial responsibility will be on the surrogacy company - per patient. The title insurance examiner did not investigate when choosing a provider and location for this delivery, per patient. Tracie Garza RN Left message with [facility] Patient Financial Services to call our back line. Patient is scheduled for an induction on 01/10. Want to ensure that [facility] will allow her to come in for this if her insurance is OON (according to the information below). If so, want to let them know that we have been working on this. Should (or has) patient spoke with [facility] herself? We don't typically do this for OON patients during . We have them deliver with [facility]. Tracie Garza RN Sarah from [facility] [employer] ([phone]) called and states food broker has called [facility] to see if they have everything they need. [facility] states they do not have the name of the provider and procedure codes. Informed Sarah that provider information was placed on form and I faxed it yesterday to [facility], and unfortunately, we do not know if the patient will deliver vaginally or via so therefore, we are uncertain what the procedure will be. Placed on procedure area: options are vaginal delivery & c/section however Pt plans to deliver vaginally. Sarah states that Pt's insurance will cover provider OV, but not [facility]. Only hospital covered-is [facility]. Form re-faxed to [facility] with area circled on face sheet that states Provider only delivers at [facility] and does not deliver at [facility] and also faxed to Sarah from [facility] [employer] at [phone]. Gave her [facility] Patient Financial Services phone # to contact them to see if they can assist. Kandy Rivers RN Authorization request form faxed to [facility]. Kandy Rivers RN Farzaneh Elise-[facility] ([place]) [phone] Calling stating insurance professional (3rd alliance party) has informed her that [facility] (Pt's insurance company) states Pt's OB OV are in network; However, [facility] is out of network and form needs filled out JEREMY. Therefore, she states she was informed that either filled had been filled out incorrectly or not enough information was filled out and this needs to be completed so that Bryce can deliver at [facility]. Single case agreement needs completed. Informed her that form will be filled out and faxed to [facility]. Farzaneh states she will call [facility] tomorrow to f/u with them and will call our office if any problems. Kandy Rivers RN After multiple transfers, nurse was told to call [facility] directly at [phone] and ask to initiate a single case agreement. Call reference number: [id number] Transferred to prior authorization department to initiate the single case agreement. Prior authorization department initiated single case agreement and medical records faxed to [phone]. Pending authorization number: [id number]. Prior authorization department did mention after entering the [facility] tax ID and NPI that it was in-network? Previous [facility] health and safety representative told nurse that it was NOT in network? Mixed information was given during phone conversation and multiple transfers. documented in this encounter [facility] 01-03-2025 Note HNO ID: [id number] Author: TRACIE KOVACS MD Service: ? Author Type: Physician Type: Progress Notes Filed: 01/03/2025 13:28 Note Text: NST SUMMARY PROVIDER ASSESSMENT AND INTERPRETATION Indications for NST: IVF Prenancy Baseline: 130 Variability: Moderate Accelerations: Present 15 X 15 Decelerations: None Interpretation: Reactive SIGNATURE: Tracie Kovacs MD [facility] 01-03-2025 Progress note Formatting of t his note might be different from the original. S: Bryce Ramirez is a 34 year old female who presents at 01/15/2025, by Last Menstrual Period for a routine visit. Denies headache, visual changes, chest pain, shortness of breath, vaginal bleeding, leakage of fluid, or dysuria. Feeling well, no complaints. Good movement, No contractions O: See flow sheet Gen: No apparent distress Abd: Gravid, nontender Reactive NST BG in good control IOL scheduled next week ASSESSMENT/PLAN: 1. 38 weeks gestation of ([facility]) - ICD9: V22.2, ICD10: Z3A.38 (primary diagnosis) - URINE OB DIP B/O 2. Group beta Strep positive - ICD9: 041.02, ICD10: B95.1 - URINE OB DIP B/O 3. Supervision of high risk in third trimester ([facility]) - ICD9: V23.9, ICD10: O09.93 - URINE OB DIP B/O 4. Surrogate ([facility]) - ICD9: V22.1, ICD10: Z33.3 - URINE OB DIP B/O 5. Diet controlled gestational diabetes mellitus (GDM) in third trimester ([facility]) - ICD9: 648.83, ICD10: O24.410 - URINE OB DIP B/O Tracie Kovacs MD [facility] 01-03-2025 History of Present illness Narrative NST SUMMARY PROVIDER ASSESSMENT AND INTERPRETATION Indications for NST: IVF Prenancy Baseline: 130 Variability: Moderate Accelerations: Present 15 X 15 Decelerations: None Interpretation: Reactive SIGNATURE: Tracie Kovacs MD documented in this encounter [facility] 01-03-2025 Miscellaneous Notes S: Bryce Ramirez is a 34 year old female who presents at 01/15/2025, by Last Menstrual Period for a routine visit. Denies headache, visual changes, chest pain, shortness of breath, vaginal bleeding, leakage of fluid, or dysuria. Feeling well, no complaints. Good movement, No contractions O: See flow sheet Gen: No apparent distress Abd: Gravid, nontender Reactive NST BG in good control IOL scheduled next week ASSESSMENT/PLAN: 1. 38 weeks gestation of ([facility]) - ICD9: V22.2, ICD10: Z3A.38 (primary diagnosis) - URINE OB DIP B/O 2. Group beta Strep positive - ICD9: 041.02, ICD10: B95.1 - URINE OB DIP B/O 3. Supervision of high risk in third trimester ([facility]) - ICD9: V23.9, ICD10: O09.93 - URINE OB DIP B/O 4. Surrogate ([facility]) - ICD9: V22.1, ICD10: Z33.3 - URINE OB DIP B/O 5. Diet controlled gestational diabetes mellitus (GDM) in third trimester ([facility]) - ICD9: 648.83, ICD10: O24.410 - URINE OB DIP B/O Tracie Kovacs MD documented in this encounter [facility] 01-03-2025 Instructions Heather Steward MA - 01/03/2025 12:56 PM EDT SEQUENTIAL SCREENINGS The [facility] offers sequential screenings for women who are [...] It will require an appointment with our heat treatment technician. This is not an ultrasound performed [...] the above symptoms, contact our office at [phone] and ask to speak with a nurse. After hours, you can call doctors registry at [phone] OR call [facility] at [phone] and ask to have the doctor automotive production worker paged. If you consider this an emergency, dial 9--2 or go to your nearest emergency department. NEED HELP? Are you dealing with a violent or abusive relationship? Are you a victim of rape or sexual assult? Call [facility] ([place]) 24 hour Crisis Hotline: 172.364.1548 or 802-864-6850. MANUAL Your Guide to a Healthy manual is now on-line. Visit [email or web address] [email or web address] to download your free copy documented in this encounter [facility] 12-29-2024 Telephone encounter Note [facility] Patient financial sales advisor returned my call from yesterday. Was told that [facility] insurance is not accepted there unless patient came in through the Emergency Room. Called and spoke with patient. She did speak with [facility] earlier in her and their department suggested to her that we complete forms through her insurance - just as we have been doing. Notified patient that we did resubmit the forms again yesterday. Patient stated that regardless, she is planning to deliver with [facility]. Out of pocket financial responsibility will be on the surrogacy company - per patient. The title insurance examiner did not investigate when choosing a provider and location for this delivery, per patient. Tracie Garza RN [facility] 12-28-2024 Telephone encounter Note Left message with [facility] Patient Financial Services to call our back line. Patient is scheduled for an induction on 01/10. Want to ensure that [facility] will allow her to come in for this if her insurance is OON (according to the information below). If so, want to let them know that we have been working on this. Should (or has) patient spoke with [facility] herself? We don't typically do this for OON patients during . We have them deliver with [facility]. Tracie Garza, RN [facility] 12-28-2024 Telephone encounter Note Sarah from [facility] ([phone]) called and states food broker has called [facility] to see if they have everything they need. Ruth states they do not have the name of the provider and procedure codes. Informed Sarah that provider information was placed on form and I faxed it yesterday to [facility], and unfortunately, we do not know if the patient will deliver vaginally or via so therefore, we are uncertain what the procedure will be. Placed on procedure area: options are vaginal delivery & c/section however Pt plans to deliver vaginally. Sarah states that Pt's insurance will cover provider OV, but not [facility]. Only hospital covered-is [facility]. Form re-faxed to [facility] with area circled on face sheet that states Provider only delivers at [facility] and does not deliver at [facility] and also faxed to Sarah from [facility] at [phone]. Gave her [facility] Patient Financial Services phone # to contact them to see if they can assist. Kandy Rivers RN [facility] 12-27-2024 Telephone encounter Note Authorization request form faxed to [facility]. Kandy Rivers RN [facility] 12-27-2024 Telephone encounter Note Farzaneh Elise-[facility] ([place]) [phone] Calling stating insurance professional (3rd alliance party) has informed her that [facility] (Pt's insurance company) states Pt's OB OV are in network; However, [facility] is out of network and form needs filled out JEREMY. Therefore, she states she was informed that either filled had been filled out incorrectly or not enough information was filled out and this needs to be completed so that Byrce can deliver at [facility]. Single case agreement needs completed. Informed her that form will be filled out and faxed to [facility]. Farzaneh states she will call [facility] tomorrow to f/u with them and will call our office if any problems. Kandy Rivers RN [facility] 12-27-2024 Note Indication Evaluation of growth, Evaluation of well-being Maternal obesity, BMI >35, resulting from invitro fertilization, Gestational diabetes - diet controlled Impression - Single, live, intrauterine . - presentation is cephalic. - The biometry is consistent with the assigned gestational dating. - The EFW is 3408 g, at the 78%. AC is at the 95%. - The amniotic fluid volume is normal amount with an MVP of 5.8 cm and an MAURY of 20 cm. - The placenta is posterior, fundal. - BPP 12/31. - No malformations visualized on a limited survey as detailed below. Recommendations Additional follow-up as clinically indicated. Maternal Assessment Height 160 cm Height (ft) 5 ft Height (in) 3 in Physical Exam Initial weight (lb) 204 lb Initial BMI 36.14 kg/m Maternal assessment other: 4 Para 2 REMOTE READ Method Transabdominal ultrasound examination [place] . Number of fetuses: 1 Dating GA by prior assessment 37 w + 2 d DIDIER by prior assessment: 01/15/2025 Ultrasound examination on: 12/27/2024 GA by U/S based upon: AC, BPD, Femur GA by U/S 38 w + 0 d DIDIER by U/S: 01/10/2025 Assigned: based on stated DIDIER, selected on 12/27/2024 Assigned GA 37 w + 2 d Assigned DIDIER: 01/15/2025 General Evaluation Cardiac activity present. FHR 143 bpm. movements: present. Presentation: cephalic Placenta: Placental site: posterior, fundal Umbilical cord: Cord vessels: 3 vessel cord Amniotic fluid: Amount of AF: normal amount. MVP 5.8 cm. MAURY 20.0 cm. Q1 5.8 cm, Q2 5.4 cm, Q3 4.2 cm, Q4 4.7 cm Biophysical Profile 2: breathing movements 2: Gross body movements 2: tone 2: Amniotic fluid volume 12/31 Biophysical profile score Growth Overview Exam date GA BPD (mm) HC (mm) AC (mm) FL (mm) HL (mm) EFW (g) 08/30/2024 20w 2d 47.9 58% 178.6 50% 162.7 78% 32.3 56% 31.3 57% 370 66% 10/25/2024 28w 2d 75.7 93% 275.2 76% 245.2 58% 51.9 41% 1258 50% 11/24/2024 32w 4d 88.4 99% 314.4 81% 295.2 76% 61.5 42% 2164 63% 12/27/2024 37w 2d 97.2 99% 343.4 79% 351.1 95% 69.2 35% 3408 78% Biometry Standard BPD 97.2 mm 39w 5d 99% Hadlock OFD 118.1 mm -/- 68% Nicolaides HC 343.4 mm -/- 79% Rea AC 351.1 mm 39w 0d 95% Hadlock Femur 69.2 mm 35w 1d 35% Rea EFW 3,408 g 38w 6d 78% Hadlock EFW (lb) 7 lb EFW (oz) 8 oz EFW by: Hadlock (HC-AC-FL) Extended Mine Safety Manager 4.7 mm Extremities / Bony Struc FL / HC 0.20 Other Structures FHR 143 bpm Anatomy Lateral ventricles: normal Cavum septi pellucidi: normal Cerebellum: normal Cisterna magna: normal 4-chamber view: normal RVOT view: normal LVOT view: normal 3-vessel view: normal Heart / Thorax Situs: situs solitus (normal) Diaphragm: normal Stomach: normal Kidneys: normal Bladder: normal Gender: Unspecified Wants to know sex: no Performed By: Ros Camacho RDMS, RVT Read By: Janet March, M.D. [facility] 12-27-2024 Progress note Formatting of t his note is different from the original. MARVIN-S: Bryce Ramirez is a 34 year old female who presents at 37w2d with DIDIER:01/15/2025, by Last Menstrual Period for a routine visit. Denies headache, visual changes, chest pain, shortness of breath, vaginal bleeding, leakage of fluid, or dysuria. Feeling well, no complaints. O: See flow sheet Gen: No apparent distress Abd: Gravid, nontender BS log for review and all normal without elevation BPP today 12/31 The EFW is 3408 g, at the 78%. AC is at the 95%. MVP of 5.8 cm and an MAURY of 1. Supervision of other high risk pregnancies, second trimester -Continue PNV and ASA 2. 36 weeks gestation of 3. Surrogate 4. Anxiety and depression -No medication, coping well 5. History of PCOS 6. Exposure to genital herpes -HSV prophylaxis at 36wk 7. resulting from in vitro fertilization in first trimester -Growth US every 4 weeks starting at 28wk - echo reviewed and negative, completed on 09/27/24 -Discussed IOL at 39 weeks as recommendation -IOL reviewed and consent signed. R/B/A discussed. 01/10 at 7am with Pitocin 8. Diet controlled gestational diabetes mellitus (GDM) in third trimester -Good control 9. Anemia during in third trimester -Continue Iron supplement -Hgb 10.1 to 10.8 PTL precautions reviewed and when to call RTO in 1 weeks with Growth US Chaya Fermin APRN.CNM [facility] 12-27-2024 Miscellaneous Notes MARVIN-S: Bryce Ramirez is a 34 year old female who presents at 37w2d with DIDIER:01/15/2025, by Last Menstrual Period for a routine visit. Denies headache, visual changes, chest pain, shortness of breath, vaginal bleeding, leakage of fluid, or dysuria. Feeling well, no complaints. O: See flow sheet Gen: No apparent distress Abd: Gravid, nontender BS log for review and all normal without elevation BPP today 12/31 The EFW is 3408 g, at the 78%. AC is at the 95%. MVP of 5.8 cm and an MAURY of 1. Supervision of other high risk pregnancies, second trimester -Continue PNV and ASA 2. 36 weeks gestation of 3. Surrogate 4. Anxiety and depression -No medication, coping well 5. History of PCOS 6. Exposure to genital herpes -HSV prophylaxis at 36wk 7. resulting from in vitro fertilization in first trimester -Growth US every 4 weeks starting at 28wk - echo reviewed and negative, completed on 09/27/24 -Discussed IOL at 39 weeks as recommendation -IOL reviewed and consent signed. R/B/A discussed. 01/10 at 7am with Pitocin 8. Diet controlled gestational diabetes mellitus (GDM) in third trimester -Good control 9. Anemia during in third trimester -Continue Iron supplement -Hgb 10.1 to 10.8 PTL precautions reviewed and when to call RTO in 1 weeks with Growth US Chaya Fermin APRN.CNM documented in this encounter [facility] 12-27-2024 Instructions Myrna Cavanaugh MA - 12/27/2024 9:09 AM EDT SEQUENTIAL SCREENINGS The [facility] offers sequential screenings for women who are [...] It will require an appointment with our heat treatment technician. This is not an ultrasound performed [...] the above symptoms, contact our office at [phone] and ask to speak with a nurse. After hours, you can call doctors registry at [phone] OR call [facility] at [phone] and ask to have the doctor automotive production worker paged. If you consider this an emergency, dial 9--1 or go to your nearest emergency department. NEED HELP? Are you dealing with a violent or abusive relationship? Are you a victim of rape or sexual assult? Call [facility] ([place]) 24 hour Crisis Hotline: 223.576.9810 or 065-955-6250. MANUAL Your Guide to a Healthy manual is now on-line. Visit [email or web address] ncyGuide to download your free copy documented in this encounter [facility] 12-07-2024 Telephone encounter Note After multiple transfers, nurse was told to call [facility] directly at [phone] and ask to initiate a single case agreement. Call reference number: [id number] Transferred to prior authorization department to initiate the single case agreement. Prior authorization department initiated single case agreement and medical records faxed to [phone]. Pending authorization number: [id number]. Prior authorization department did mention after entering the [facility] tax ID and NPI that it was in-network? Previous [facility] health and safety representative told nurse that it was NOT in network? Mixed information was given during phone conversation and multiple transfers. [facility] 12-06-2024 Instructions Meliton Fabian LPN - 12/06/2024 8:04 AM EDT SEQUENTIAL SCREENINGS The [facility] offers sequential screenings for women who are [...] It will require an appointment with our heat treatment technician. This is not an ultrasound performed [...] the above symptoms, contact our office at [phone] and ask to speak with a nurse. After hours, you can call doctors registry at [phone] OR call [facility] at [phone] and ask to have the doctor automotive production worker paged. If you consider this an emergency, dial 9-1-1 or go to your nearest emergency department. NEED HELP? Are you dealing with a violent or abusive relationship? Are you a victim of rape or sexual assult? Call [facility] ([place]) 24 hour Crisis Hotline: 882.885.1809 or 360-907-2677. MANUAL Your Guide to a Healthy manual is now on-line. Visit [email or web address] [email or web address] to download your free copy documented in this encounter [facility] 12-06-2024 Miscellaneous Notes MARVIN-S: Bryce Ramirez is a 34 year old female who presents at 34w2d with DIDIER:01/15/2025, by Last Menstrual Period for a routine visit. Denies headache, visual changes, chest pain, shortness of breath, vaginal bleeding, leakage of fluid, or dysuria. Feeling well, no complaints. O: See flow sheet Gen: No apparent distress Abd: Gravid, nontender BS log for review, only 1 elevated fasting all 1hr PP normal 1. Supervision of other high risk pregnancies, second trimester -Continue PNV and ASA -All legal paperwork was given to hospital by parents. -PN labs drawn last visit as no records 2. 34 weeks gestation of 3. Surrogate -Have still not received all of her records, prior records were from parents. Records requested. 4. Anxiety and depression -No medication, coping well 5. History of PCOS 6. Exposure to genital herpes -HSV prophylaxis at 36wk -Rx sent 7. resulting from in vitro fertilization in first trimester -Growth US every 4 weeks starting at 28wk - echo reviewed and negative, completed on 09/27/24 -Discussed IOL at 39 weeks as recommendation 8. Diet controlled gestational diabetes mellitus (GDM) in third trimester -Good control 9. Anemia during in third trimester -Continue Iron supplement -Hgb 10.1 to 10.8 PTL precautions reviewed and when to call RTO in 2 weeks with Growth US Chaya Fermin APRN.CNM documented in this encounter [facility] 12-06-2024 Progress note Formatting of t his note is different from the original. MARVIN-S: Bryce Ramirez is a 34 year old female who presents at 34w2d with DIDIER:01/15/2025, by Last Menstrual Period for a routine visit. Denies headache, visual changes, chest pain, shortness of breath, vaginal bleeding, leakage of fluid, or dysuria. Feeling well, no complaints. O: See flow sheet Gen: No apparent distress Abd: Gravid, nontender BS log for review, only 1 elevated fasting all 1hr PP normal 1. Supervision of other high risk pregnancies, second trimester -Continue PNV and ASA -All legal paperwork was given to hospital by parents. -PN labs drawn last visit as no records 2. 34 weeks gestation of 3. Surrogate -Have still not received all of her records, prior records were from parents. Records requested. 4. Anxiety and depression -No medication, coping well 5. History of PCOS 6. Exposure to genital herpes -HSV prophylaxis at 36wk -Rx sent 7. resulting from in vitro fertilization in first trimester -Growth US every 4 weeks starting at 28wk - echo reviewed and negative, completed on 09/27/24 -Discussed IOL at 39 weeks as recommendation 8. Diet controlled gestational diabetes mellitus (GDM) in third trimester -Good control 9. Anemia during in third trimester -Continue Iron supplement -Hgb 10.1 to 10.8 PTL precautions reviewed and when to call RTO in 2 weeks with Growth US Chaya Fermin APRN.CNM [facility] 11-24-2024 Note Indication Evaluation of growth Maternal obesity, BMI >35, resulting from invitro fertilization, Gestational diabetes - diet controlled Impression - Single, live, intrauterine . - presentation is cephalic. - The biometry is consistent with the assigned gestational dating. - The EFW is 2164 g, at the 63%. AC is at the 76%. - The amniotic fluid volume is normal amount with an MVP of 7.6 cm and an MAURY of 18.4 cm. - The placenta is posterior, fundal. - No malformations visualized on a limited survey as detailed below. Recommendations Growth in four weeks Maternal Assessment Height 160 cm Height (ft) 5 ft Height (in) 3 in Physical Exam Initial weight (lb) 204 lb Initial BMI 36.14 kg/m Maternal assessment other: 4 Para 2 REMOTE READ Method Transabdominal ultrasound examination [place] . Number of fetuses: 1 Dating GA by prior assessment 32 w + 4 d DIDIER by prior assessment: 01/15/2025 Ultrasound examination on: 11/24/2024 GA by U/S based upon: AC, BPD, Femur, HC GA by U/S 33 w + 6 d DIDIER by U/S: 01/06/2025 Assigned: based on stated DIDIER, selected on 10/25/2024 Assigned GA 32 w + 4 d Assigned DIDIER: 01/15/2025 General Evaluation Cardiac activity present. FHR 145 bpm. movements: present. Presentation: cephalic Placenta: Placental site: posterior, fundal Umbilical cord: Cord vessels: 3 vessel cord Amniotic fluid: Amount of AF: normal amount. MVP 7.6 cm. MAURY 18.4 cm. Q1 7.6 cm, Q2 3.7 cm, Q3 4.6 cm, Q4 2.4 cm Growth Overview Exam date GA BPD (mm) HC (mm) AC (mm) FL (mm) HL (mm) EFW (g) 08/30/2024 20w 2d 47.9 58% 178.6 50% 162.7 78% 32.3 56% 31.3 57% 370 66% 10/25/2024 28w 2d 75.7 93% 275.2 76% 245.2 58% 51.9 41% 1258 50% 11/24/2024 32w 4d 88.4 99% 314.4 81% 295.2 76% 61.5 42% 2164 63% Biometry Standard BPD 88.4 mm 35w 5d 99% Hadlock OFD 108.5 mm 32w 4d 58% Nicolaides HC 314.4 mm 34w 2d 81% Rea AC 295.2 mm 33w 4d 76% Hadlock Femur 61.5 mm 31w 5d 42% Rea EFW 2,164 g 33w 0d 63% Hadlock EFW (lb) 4 lb EFW (oz) 12 oz EFW by: Hadlock (HC-AC-FL) Extended Mine Safety Manager 5.5 mm Extremities / Bony Struc FL / HC 0.20 Other Structures FHR 145 bpm Anatomy Lateral ventricles: normal Cavum septi pellucidi: normal Cerebellum: normal Cisterna magna: normal 4-chamber view: normal RVOT view: normal LVOT view: normal 3-vessel view: normal Heart / Thorax Situs: situs solitus (normal) Diaphragm: normal Stomach: normal Kidneys: normal Bladder: normal Gender: Unspecified Wants to know sex: no Performed By: Ros Camacho RDMS, RVT Read By: Yady Boyer M.D. [facility] 11-24-2024 Note HNO ID: [id number] Author: CHAYA FERMIN APRN.CNM Service: ? Author Type: Assistant Merchandise Manager Type: Progress Notes Filed: 11/24/2024 11:43 Note Text: MARVIN-S: Bryce Ramirez is a 34 year old female who presents at 32w4d with DIDIER:01/15/2025, by Last Menstrual Period for a routine visit. Denies headache, visual changes, chest pain, shortness of breath, vaginal bleeding, leakage of fluid, or dysuria. Feeling well, no complaints. O: See flow sheet Gen: No apparent distress Abd: Gravid, nontender Does not have log but using CMG she got from a friend Able to see trend but discussed unable to accurately pull up data on phone. Patient recall: [id number] 1hr 121 highest 1. Supervision of other high risk pregnancies, second trimester -Continue PNV and ASA -All legal paperwork was given to hospital by parents. 2. 32 weeks gestation of 3. Surrogate -Have still not received all of her records, prior records were from parents. Records requested. 4. Anxiety and depression -No medication, coping well 5. History of PCOS 6. Exposure to genital herpes -HSV prophylaxis at 36wk 7. resulting from in vitro fertilization in first trimester -Growth US every 4 weeks starting at 28wk - echo reviewed and negative, completed on 09/27/24 -Discussed IOL at 39 weeks as recommendation 8. Diet controlled gestational diabetes mellitus (GDM) in third trimester -Reviewed keeping log. Discussed either using CMG or glucometer for consistency. Discussed how to record data and to send weekly via [employer] -Growth US today, repeat at 36wk 9. Anemia during in third trimester -Continue Iron supplement, repeat CBC and iron studies today PTL precautions reviewed and when to call RTO in 2 weeks Chaya Fermin APRN.[facility] 11-24-2024 History of Present illness Narrative MARVIN-S: Bryce Ramirez is a 34 year old female who presents at 32w4d with DIDIER:01/15/2025, by Last Menstrual Period for a routine visit. Denies headache, visual changes, chest pain, shortness of breath, vaginal bleeding, leakage of fluid, or dysuria. Feeling well, no complaints. O: See flow sheet Gen: No apparent distress Abd: Gravid, nontender Does not have log but using CMG she got from a friend Able to see trend but discussed unable to accurately pull up data on phone. Patient recall: [id number] 1hr 121 highest 1. Supervision of other high risk pregnancies, second trimester -Continue PNV and ASA -All legal paperwork was given to hospital by parents. 2. 32 weeks gestation of 3. Surrogate -Have still not received all of her records, prior records were from parents. Records requested. 4. Anxiety and depression -No medication, coping well 5. History of PCOS 6. Exposure to genital herpes -HSV prophylaxis at 36wk 7. resulting from in vitro fertilization in first trimester -Growth US every 4 weeks starting at 28wk - echo reviewed and negative, completed on 09/27/24 -Discussed IOL at 39 weeks as recommendation 8. Diet controlled gestational diabetes mellitus (GDM) in third trimester -Reviewed keeping log. Discussed either using CMG or glucometer for consistency. Discussed how to record data and to send weekly via [employer] -Growth US today, repeat at 36wk 9. Anemia during in third trimester -Continue Iron supplement, repeat CBC and iron studies today PTL precautions reviewed and when to call RTO in 2 weeks Chaya Fermin APRN.CNM documented in this encounter [facility] 11-24-2024 Instructions Chaya Fermin APRN.CNM - 11/24/2024 11:08 AM EDT (Fingersticks) Date Fasting AM 1 hr PP Breakfast 1 hr PP Lunch 1 hr PP Dinner *Send log weekly via [employer] and bring to appointments SIGNS AND SYMPTOMS OF LABOR 1. Contractions every 10 minutes or more often 2. Clear, pink, or brownish fluid (water) leaking from vagina 3. Feeling that baby is pushing down, pressure 4. Low, dull backache 5. Cramps that feel like a period 6. Cramps with or without diarrhea If you notice any of the above symptoms, contact our office at [phone] and ask to speak with a nurse. After hours, you can call doctors registry at [phone] OR call [facility] at [phone] and ask to have the doctor automotive production worker paged. If you consider this an emergency, dial 2-9-6 or go to your nearest emergency department. NEED HELP? Are you dealing with a violent or abusive relationship? Are you a victim of rape or sexual assult? Call [facility] ([place]) 24 hour Crisis Hotline: 826.455.3392 or 925-500-0964. MANUAL Your Guide to a Healthy manual is now on-line. Visit [email or web address] ncyGuide to download your free copy documented in this encounter [facility] 11-08-2024 Progress note Formatting of t his note might be different from the original. MARVIN-S: Bryce Ramirez is a 34 year old female who presents at 30w2d with DIDIER:01/15/2025, by Last Menstrual Period for a routine visit. Denies headache, visual changes, chest pain, shortness of breath, vaginal bleeding, leakage of fluid, or dysuria. Feeling well, no complaints. O: See flow sheet Gen: No apparent distress Abd: Gravid, nontender 1. Supervision of other high risk pregnancies, second trimester -Continue PNV and ASA -All legal paperwork was given to hospital by parents. 2. 30 weeks gestation of 3. Surrogate -Have still not received all of her records, prior records were from parents. Records requested. 4. Anxiety and depression -No medication, coping well 5. History of PCOS 6. Exposure to genital herpes -HSV prophylaxis at 36wk 7. resulting from in vitro fertilization in first trimester -Growth US every 4 weeks starting at 28wk - echo reviewed and negative, completed on 09/27/24 -Discussed IOL at 39 weeks as recommendation 8. Diet controlled gestational diabetes mellitus (GDM) in third trimester -Good control, completed inclusion special educator visit and feel comfortable with testing and diet. 9. Anemia during in third trimester -Continue Iron supplement, repeat CBC next visit PTL precautions reviewed and when to call RTO in 2 weeks with Growth US Chaya Fermin APRN.CNM [facility] 11-08-2024 Miscellaneous Notes MARVNI-S: Bryce Ramirez is a 34 year old female who presents at 30w2d with DIDIER:01/15/2025, by Last Menstrual Period for a routine visit. Denies headache, visual changes, chest pain, shortness of breath, vaginal bleeding, leakage of fluid, or dysuria. Feeling well, no complaints. O: See flow sheet Gen: No apparent distress Abd: Gravid, nontender 1. Supervision of other high risk pregnancies, second trimester -Continue PNV and ASA -All legal paperwork was given to hospital by parents. 2. 30 weeks gestation of 3. Surrogate -Have still not received all of her records, prior records were from parents. Records requested. 4. Anxiety and depression -No medication, coping well 5. History of PCOS 6. Exposure to genital herpes -HSV prophylaxis at 36wk 7. resulting from in vitro fertilization in first trimester -Growth US every 4 weeks starting at 28wk - echo reviewed and negative, completed on 09/27/24 -Discussed IOL at 39 weeks as recommendation 8. Diet controlled gestational diabetes mellitus (GDM) in third trimester -Good control, completed inclusion special educator visit and feel comfortable with testing and diet. 9. Anemia during in third trimester -Continue Iron supplement, repeat CBC next visit PTL precautions reviewed and when to call RTO in 2 weeks with Growth US Chaya Fermin APRN.CNM documented in this encounter [facility] 11-08-2024 Note HNO ID: [id number] Author: CHAYA FERMIN APRN.CNM Service: ? Author Type: Assistant Merchandise Manager Type: Progress Notes Filed: 11/08/2024 08:29 Note Text: [facility] 11-08-2024 History of Present illness Narrative documented in this encounter [facility] 11-08-2024 Instructions Tejas Valdez MA - 11/08/2024 7:58 AM EDT SEQUENTIAL SCREENINGS The [facility] offers sequential screenings for women who are [...] It will require an appointment with our heat treatment technician. This is not an ultrasound performed [...] the above symptoms, contact our office at [phone] and ask to speak with a nurse. After hours, you can call doctors registry at [phone] OR call [facility] at [phone] and ask to have the doctor automotive production worker paged. If you consider this an emergency, dial 9-1-1 or go to your nearest emergency department. NEED HELP? Are you dealing with a violent or abusive relationship? Are you a victim of rape or sexual assult? Call [facility] ([place]) 24 hour Crisis Hotline: 512.938.4139 or 915-714-6334. MANUAL Your Guide to a Healthy manual is now on-line. Visit [email or web address] to download your free copy documented in this encounter [facility] 11-01-2024 Note HNO ID: [id number] Author: CIARRA HUBBARD RN Service: ? Author Type: Registered Nurse Type: Progress Notes Filed: 11/01/2024 10:47 Note Text: DIABETES SELF-MANAGEMENT EDUCATION AND SUPPORT Location: [facility] Type of visit: Virtual (with video) individual I have communicated my name and active licensure. The patient's identity and physical location were verified at the time of this visit. Either the patient or their legal health and safety representative has been informed of the risks and benefits of -- and alternatives to -- treatment through a remote evaluation and consents to proceed with the evaluation remotely. Types of DSMES: GDM PATIENT'S MAIN CONCERN TODAY: Nothing. I'm getting another evaluation. Support person present for education today: none Cognitive ability: Alert and oriented Motivation to learn: Interested Learning barriers identified by educator: none Method of instruction: written, demonstration, and video INTERVENTIONS/TOPICS COVERED: -Diabetes Pathophysiology: insulin resistance, gestational diabetes basics, and symptoms of diabetes -Monitoring: BG targets, logging, and sharps disposal -Healthy Eating: impact of carbs on BG, basic carb counting, foods with carbs, portion sizes, reading food labels, recommendation for GDM meal plan: Breakfast 30 grams + 1-2 oz of protein, no fruit, yogurt or milk, Snack 15-30 grams + 1-2 oz of protein, Lunch 45-60 prakash + 3-6 oz of protein, Snack 15-30 grams + 1-2 oz of protein, Dinner 45-60 grams + 3-6 oz of protein, BT snack 15-30 grams + 2 oz of protein, carbs/protein/fat contribution to calories, and healthy heart options -Medications: pen injection instruction, sharps disposal, basal insulin, and injectable insulin discussed: NPH Insulin and glargine (Lantus) -Physical Activity: benefits of exercise and impact of exercise on BG -Acute Complications: hypoglycemia s/sx/tx, hyperglycemia s/sx/tx, and sick day rules -Chronic Complications: risks to mom and baby with elevated blood sugars during DIABETES ASSESSMENT: Referring Physician: Chaya Fermin Previous Diabetes Education? No What are you hoping to gain from this visit? Nothing, I'm getting another evaluation. I don't think I have it. In your words, what is gestational diabetes? Annoying What concerns you about having gestational diabetes? none Diabetes History: Type of Diabetes: Gestational ( diabetes in ) How far along is your ? Weeks: 29 Does anyone in your family have diabetes? yes on both sides of the family. 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 rarely How often does someone help you read your pill bottles? never How often does someone have to help you take care of your diabetes? never Major stressors: none How do you manage stress? Watch [employer] [place] Do any of the following things get in the way of managing your diabetes? Nothing gets in the way of DM management Health History: Do you use tobacco? No Do you use alcohol? No In the past 12 months have you had any: Hospital Admissions: No ER Visits: No Primary Care Visits: Yes, Number of Times? 1 What are your general feelings about you overall health? Good Medical Issues/Complications: PCOS To whom are you reporting your blood sugar levels? OB and High-Risk OB PAST MEDICAL HISTORY Diagnosis Date anxiety Anxiety and depression 05/28/2022 History of PCOS Low HDL (under 40) 06/2013 Migraine Patellofemoral syndrome, bilateral b/l, sees PT Proteinuria as a teenager Tendonitis of shoulder, right has seen PT Most recent A1C Lab Results Component Value Date HBA1C 5.2 07/12/2024 HBA1C 5.2 09/30/2022 HBA1C 5.3 07/12/2013 Physical Activity: Do you do a regular exercise? Yes; how many days per week 5+ How long each day? 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 Current Outpatient Medications Medication Sig ascorbic acid, vitamin C, (VITAMIN C) 500 mg tablet Take 1 tablet by mouth every other day. aspirin, enteric coated (ECOTRIN LOW STRENGTH) 81 mg EC tablet Take 1 tablet by mouth once daily. blood sugar diagnostic test strip Use as directed to check glucose levels up to seven times daily. Lancets Use as directed to check glucose levels up to seven times daily. alcohol swabs (ALCOHOL PREP PADS) Use as directed to check glucose levels up to seven times daily. ferrous sulfate 325 mg (65 mg iron) tablet Take 1 ta (more content not included)... [facility] 11-01-2024 History of Present illness Narrative DIABETES SELF-MANAGEMENT EDUCATION AND SUPPORT Location: [facility] Type of visit: Virtual (with video) individual I have communicated my name and active licensure. The patient's identity and physical location were verified at the time of this visit. Either the patient or their legal health and safety representative has been informed of the risks and benefits of -- and alternatives to -- treatment through a remote evaluation and consents to proceed with the evaluation remotely. Types of DSMES: GDM PATIENT'S MAIN CONCERN TODAY: Nothing. I'm getting another evaluation. Support person present for education today: none Cognitive ability: Alert and oriented Motivation to learn: Interested Learning barriers identified by educator: none Method of instruction: written, demonstration, and video INTERVENTIONS/TOPICS COVERED: -Diabetes Pathophysiology: insulin resistance, gestational diabetes basics, and symptoms of diabetes -Monitoring: BG targets, logging, and sharps disposal -Healthy Eating: impact of carbs on BG, basic carb counting, foods with carbs, portion sizes, reading food labels, recommendation for GDM meal plan: Breakfast 30 grams + 1-2 oz of protein, no fruit, yogurt or milk, Snack 15-30 grams + 1-2 oz of protein, Lunch 45-60 prakash + 3-6 oz of protein, Snack 15-30 grams + 1-2 oz of protein, Dinner 45-60 grams + 3-6 oz of protein, BT snack 15-30 grams + 2 oz of protein, carbs/protein/fat contribution to calories, and healthy heart options -Medications: pen injection instruction, sharps disposal, basal insulin, and injectable insulin discussed: NPH Insulin and glargine (Lantus) -Physical Activity: benefits of exercise and impact of exercise on BG -Acute Complications: hypoglycemia s/sx/tx, hyperglycemia s/sx/tx, and sick day rules -Chronic Complications: risks to mom and baby with elevated blood sugars during DIABETES ASSESSMENT: Referring Physician: Chaya Fermin Previous Diabetes Education? No What are you hoping to gain from this visit? Nothing, I'm getting another evaluation. I don't think I have it. In your words, what is gestational diabetes? Annoying What concerns you about having gestational diabetes? none Diabetes History: Type of Diabetes: Gestational ( diabetes in ) How far along is your ? Weeks: 29 Does anyone in your family have diabetes? yes on both sides of the family. 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 rarely How often does someone help you read your pill bottles? never How often does someone have to help you take care of your diabetes? never Major stressors: none How do you manage stress? Watch [employer] [place] Do any of the following things get in the way of managing your diabetes? Nothing gets in the way of DM management Health History: Do you use tobacco? No Do you use alcohol? No In the past 12 months have you had any: Hospital Admissions: No ER Visits: No Primary Care Visits: Yes, Number of Times? 1 What are your general feelings about you overall health? Good Medical Issues/Complications: PCOS To whom are you reporting your blood sugar levels? OB and High-Risk OB PAST MEDICAL HISTORY Diagnosis Date anxiety Anxiety and depression 05/28/2022 History of PCOS Low HDL (under 40) 06/2013 Migraine Patellofemoral syndrome, bilateral b/l, sees PT Proteinuria as a teenager Tendonitis of shoulder, right has seen PT Most recent A1C Lab Results Component Value Date HBA1C 5.2 07/12/2024 HBA1C 5.2 09/30/2022 HBA1C 5.3 07/12/2013 Physical Activity: Do you do a regular exercise? Yes; how many days per week 5+ How long each day? 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 Current Outpatient Medications Medication Sig ascorbic acid, vitamin C, (VITAMIN C) 500 mg tablet Take 1 tablet by mouth every other day. aspirin, enteric coated (ECOTRIN LOW STRENGTH) 81 mg EC tablet Take 1 tablet by mouth once daily. blood sugar diagnostic test strip Use as directed to check glucose levels up to seven times daily. Lancets Use as directed to check glucose levels up to seven times daily. alcohol swabs (ALCOHOL PREP PADS) Use as directed to check glucose levels up to seven times daily. ferrous sulfate 325 mg (65 mg iron) tablet Take 1 tablet by mouth every other day. acyclovir (ZOVIRAX) 400 mg tablet Take 1 tablet by mouth three times a day. riboflavin, vitamin B2, (VITAMIN B-2) 100 mg tab Take 2 tablets by mouth once daily. famotidine (PEPCID) 40 mg tablet Take 1 tablet by mouth once daily. Aavjktwf-Ch-Yxh-Fe-FA tab Take 1 tablet by mouth once daily. With 1 gram folic acid and DHA as covered by insurance. cyproheptadine (PERIACTIN) 4 mg tablet Take 1 tablet by mouth every 12 hours as needed. cyclobenzaprine (FLEXERIL) 5 mg tablet Take 1 tablet by mouth three times a day. PNV no.95/ferrous fum/folic ac ( ORAL) Take by mouth. ergocalciferol, vitamin D2, (VITAMIN D2 ORAL) Take by mouth. No current facility-administered medications for this visit. Medications for Diabetes: Name of Medication Dose When taken How often missed Injections Technique: Do you take insulin or a medication you inject for your diabetes? No Blood Sugar Monitoring: Do you have a blood sugar monitor? Yes; What kind of meter is it? True Metrix How often do you check? 4x per day When you check? before breakfast and other 1 hr pp. Do you log your blood sugars? Yes. Where do you throw away your lancets? sharps container Management of Low Blood Sugar: What has been your lowest blood sugar in the last month? 91 see below What are your symptoms of lows? none How do you treat lows? Instructed on the Rule of [address] Management of High Blood Sugar: What has been you highest blood sugar in the last month? 118 see below What are your symptoms of highs? Other none How do you treat your highs? asked/not answered Meal Planning: Are you currently following any meal plan? Other lots of fruits and vegetables, red meat. 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 Self Who does the grocery shopping? Self We don't go to the grocery store often. We grow our own food. How often do you eat out? rarely How many meals do you eat per day? Three not many snacks. Which meals do you tend to skip? None Beverages: water and milk EDUCATION HANDOUTS: Healthy You: Diabetes and via My chart LEARNING RESPONSE: Diabetes pathophysiology: Demonstrated understanding/competency today or at previous visit Healthy eating: Needs further instruction/review Being active: Demonstrated understanding/competency today or at previous visit Taking medications: Needs further instruction/review Monitoring glucose: Demonstrated understanding/competency today or at previous visit Acute complications: Demonstrated understanding/competency today or at previous visit Chronic complications: Demonstrated understanding/competency today or at previous visit Healthy coping: Needs further instruction/review Diabetes distress and support: Demonstrated understanding/competency today or at previous visit PATIENT SELECTED THE FOLLOWING GOALS: -Monitoring goal: Check FBS land 1 hr pp 4: I'm ready to start now POSSIBLE FUTURE TOPICS: 1. The following topics were not assessed due to time limitations, but should be assessed at the next visit: all areas were assessed today or within the last 12 months. 2. The following topics should be taught or reinforced at the next visit: healthy eating and taking medications. DIABETES EDUCATION PLAN: Individual follow-up 11/29/24 at 9 am Patient consented to a virtual visit for GDM. , 29w2d. Abnormal GTT: FBS 98, 1 hr 185, 2 hr 164, 3 hr 3 hr 123. Patient is a surrogate mother via IVF. She wants a second opinion about GDM diagnosis. Even after explanation of GDM after instruction patient continues to want a second opinion. First [facility] visit 11/16/24. Time Spent (Minutes): 45 This visit note will be communicated to the healthcare provider via access to shared medical record. SIGNATURE: Ciarra Hubbard RN,BSN,[facility] PATIENT NAME: Bryce Ramirez DATE: November 01, 2024 TIME: 9:01 AM PAGER: documented in this encounter [facility] 10-25-2024 Progress note Formatting of t his note might be different from the original. Anatomy ultrasound reviewed. No abnormalities identified. Follow up as clinically indicated. Please place copy in ob chart. Nelly Solorzano MD [facility] 10-25-2024 Miscellaneous Notes Anatomy ultrasound reviewed. No abnormalities identified. Follow up as clinically indicated. Please place copy in ob chart. Nelly Solorzano MD documented in this encounter [facility] 10-25-2024 Note Indication Evaluation of growth Maternal obesity, BMI >35, resulting from invitro fertilization Impression - Single, live, intrauterine . - presentation is cephalic. - The biometry is consistent with the assigned gestational dating. - The EFW is 1258 g, at the 50%. AC is at the 58%. - The amniotic fluid volume is normal amount with an MVP of 5.1 cm and an MAURY of 17.8 cm. - The placenta is posterior, fundal. - No malformations visualized on a limited survey as detailed below. Recommendations Growth in four weeks Maternal Assessment Height 160 cm Height (ft) 5 ft Height (in) 3 in Physical Exam Initial weight (lb) 204 lb Initial BMI 36.14 kg/m Maternal assessment other: 4 Para 2 REMOTE READ Method Transabdominal ultrasound examination [place] . Number of fetuses: 1 Dating GA by prior assessment 28 w + 2 d DIDIER by prior assessment: 01/15/2025 Ultrasound examination on: 10/25/2024 GA by U/S based upon: AC, BPD, Femur, HC GA by U/S 29 w + 1 d DIDIER by U/S: 01/09/2025 Assigned: based on stated DIDIER, selected on 10/25/2024 Assigned GA 28 w + 2 d Assigned DIDIER: 01/15/2025 General Evaluation Cardiac activity present. FHR 145 bpm. movements: present. Presentation: cephalic Placenta: Placental site: posterior, fundal Umbilical cord: Cord vessels: 3 vessel cord Amniotic fluid: Amount of AF: normal amount. MVP 5.1 cm. MAURY 17.8 cm. Q1 4.8 cm, Q2 4.6 cm, Q3 5.1 cm, Q4 3.3 cm Growth Overview Exam date GA BPD (mm) HC (mm) AC (mm) FL (mm) HL (mm) EFW (g) 08/30/2024 20w 2d 47.9 58% 178.6 50% 162.7 78% 32.3 56% 31.3 57% 370 66% 10/25/2024 28w 2d 75.7 93% 275.2 76% 245.2 58% 51.9 41% 1258 50% Biometry Standard BPD 75.7 mm 30w 3d 93% Hadlock OFD 96.2 mm 28w 3d 67% Nicolaides HC 275.2 mm 29w 3d 76% Rea AC 245.2 mm 28w 5d 58% Hadlock Femur 51.9 mm 27w 6d 41% Rea EFW 1,258 g 28w 2d 50% Hadlock EFW (lb) 2 lb EFW (oz) 12 oz EFW by: Hadlock (HC-AC-FL) Extended Mine Safety Manager 4.7 mm Extremities / Bony Struc FL / HC 0.19 Other Structures FHR 145 bpm Anatomy Lateral ventricles: normal Cavum septi pellucidi: normal Cerebellum: normal Cisterna magna: normal 4-chamber view: normal RVOT view: normal LVOT view: normal 3-vessel view: normal Heart / Thorax Situs: situs solitus (normal) Diaphragm: normal Stomach: normal Kidneys: normal Bladder: normal Gender: Unspecified Wants to know sex: no Performed By: Ros Camacho, WENDY, RVT Read By: Yady Boyer M.D. [facility] 10-25-2024 Progress note Formatting of t his note might be different from the original. MARVIN-S: Bryce Ramirez is a 34 year old female who presents at 28w3d with DIDIER:01/15/2025, by Last Menstrual Period for a routine visit. Denies headache, visual changes, chest pain, shortness of breath, vaginal bleeding, leakage of fluid, or dysuria. Feeling well, no complaints. O: See flow sheet Gen: No apparent distress Abd: Gravid, nontender ASSESSMENT/PLAN: 1. Supervision of other high risk pregnancies, second trimester -Continue PNV and ASA -Growth US today -All legal paperwork was given to hospital by parents. -Declines Tdap -O positive -Depression screen negative 2. 28 weeks gestation of 3. Surrogate -Have still not received all of her records, prior records were from parents. Records requested. 4. Anxiety and depression -No medication, coping well 5. History of PCOS 6. Exposure to genital herpes -HSV prophylaxis at 36wk 7. resulting from in vitro fertilization in first trimester -Growth US every 4 weeks starting at 28wk - echo reviewed and negative, completed on 09/27/24 -Discussed IOL at 39 weeks as recommendation PTL precautions reviewed and when to call RTO in 4 weeks Chaya Fermin APRN.CNM [facility] 10-25-2024 Miscellaneous Notes MARVIN-S: Bryce Ramirez is a 34 year old female who presents at 28w3d with DIDIER:01/15/2025, by Last Menstrual Period for a routine visit. Denies headache, visual changes, chest pain, shortness of breath, vaginal bleeding, leakage of fluid, or dysuria. Feeling well, no complaints. O: See flow sheet Gen: No apparent distress Abd: Gravid, nontender ASSESSMENT/PLAN: 1. Supervision of other high risk pregnancies, second trimester -Continue PNV and ASA -Growth US today -All legal paperwork was given to hospital by parents. -Declines Tdap -O positive -Depression screen negative 2. 28 weeks gestation of 3. Surrogate -Have still not received all of her records, prior records were from parents. Records requested. 4. Anxiety and depression -No medication, coping well 5. History of PCOS 6. Exposure to genital herpes -HSV prophylaxis at 36wk 7. resulting from in vitro fertilization in first trimester -Growth US every 4 weeks starting at 28wk - echo reviewed and negative, completed on 09/27/24 -Discussed IOL at 39 weeks as recommendation PTL precautions reviewed and when to call RTO in 4 weeks Chaya Fermin APRN.CNM documented in this encounter [facility] 10-25-2024 Instructions Trudy Davis MA - 10/25/2024 11:20 AM EDT SEQUENTIAL SCREENINGS The [facility] offers sequential screenings for women who are [...] It will require an appointment with our heat treatment technician. This is not an ultrasound performed [...] the above symptoms, contact our office at [phone] and ask to speak with a nurse. After hours, you can call doctors registry at [phone] OR call [facility] at [phone] and ask to have the doctor automotive production worker paged. If you consider this an emergency, dial 9-1-2 or go to your nearest emergency department. NEED HELP? Are you dealing with a violent or abusive relationship? Are you a victim of rape or sexual assult? Call [facility] 24 hour Crisis Hotline: 817.390.1690 or 336-946-3740. MANUAL Your Guide to a Healthy manual is now on-line. Visit [email or web address] to download your free copy documented in this encounter [facility] 10-19-2024 Telephone encounter Note Prescription Refill Information The patient has been identified by name and date of : Yes Caregiver verified no other encounters exist for this prescription request: Yes Caregiver confirmed with patient/requestor that no other refills are due, in the near future, with this provider at this time: Yes The last office visit in the department: 08/03/24 (virtual) ksenia/ Laine Mccollum CNP Does the patient have a future office visit with this provider/department: No Requested Prescriptions Pending Prescriptions Disp Refills riboflavin, vitamin B2, (VITAMIN B-2) 100 mg tab 60 tablet 2 Sig: Take 2 tablets by mouth once daily. Debbie Bustos MA October 19, 2024 9:04 AM [facility] 10-19-2024 Miscellaneous Notes Prescription Refill Information The patient has been identified by name and date of : Yes Caregiver verified no other encounters exist for this prescription request: Yes Caregiver confirmed with patient/requestor that no other refills are due, in the near future, with this provider at this time: Yes The last office visit in the department: 08/03/24 (virtual) violeta Mccollum CNP Does the patient have a future office visit with this provider/department: No Requested Prescriptions Pending Prescriptions Disp Refills riboflavin, vitamin B2, (VITAMIN B-2) 100 mg tab 60 tablet 2 Sig: Take 2 tablets by mouth once daily. Debbie Bustos MA October 19, 2024 9:04 AM documented in this encounter [facility] 09-27-2024 Progress note Formatting of t his note is different from the original. MARVIN-S: Bryce Ramirez is a 34 year old female who presents at 20w2d with DIDIER:01/15/2025, by Last Menstrual Period for a routine visit. Denies headache, visual changes, chest pain, shortness of breath, vaginal bleeding, leakage of fluid, or dysuria. Feeling well, no complaints. Migraines are better, the Periactin has helped. Continues PNV and ASA. Increased heartburn, tums not helping as much O: See flow sheet Gen: No apparent distress Abd: Gravid, nontender ASSESSMENT/PLAN: 1. Supervision of other high risk pregnancies, second trimester -Continue PNV and ASA -Return for anatomy US at 20 weeks -1hr GCT, CBC, and RPR next visit. 2. 24 weeks gestation of 3. Surrogate -Records reviewed 4. Anxiety and depression -No medication, coping well 5. History of PCOS 6. Exposure to genital herpes -HSV prophylaxis at 36wk 7. resulting from in vitro fertilization in first trimester -Growth US every 4 weeks starting at 28wk - echo reviewed and negative, completed on 09/27/24 -Discussed IOL at 39 weeks as recommendation PTL precautions reviewed and when to call RTO in 4 weeks Chaya Fermin APRN.CNM [facility] 09-27-2024 Miscellaneous Notes MARVIN-S: Bryce Ramirez is a 34 year old female who presents at 20w2d with DIDIER:01/15/2025, by Last Menstrual Period for a routine visit. Denies headache, visual changes, chest pain, shortness of breath, vaginal bleeding, leakage of fluid, or dysuria. Feeling well, no complaints. Migraines are better, the Periactin has helped. Continues PNV and ASA. Increased heartburn, tums not helping as much O: See flow sheet Gen: No apparent distress Abd: Gravid, nontender ASSESSMENT/PLAN: 1. Supervision of other high risk pregnancies, second trimester -Continue PNV and ASA -Return for anatomy US at 20 weeks -1hr GCT, CBC, and RPR next visit. 2. 24 weeks gestation of 3. Surrogate -Records reviewed 4. Anxiety and depression -No medication, coping well 5. History of PCOS 6. Exposure to genital herpes -HSV prophylaxis at 36wk 7. resulting from in vitro fertilization in first trimester -Growth US every 4 weeks starting at 28wk - echo reviewed and negative, completed on 09/27/24 -Discussed IOL at 39 weeks as recommendation PTL precautions reviewed and when to call RTO in 4 weeks Chaya Fermin APRN.CNM documented in this encounter [facility] 09-27-2024 Instructions Tejas Valdez MA - 09/27/2024 11:18 AM EDT SEQUENTIAL SCREENINGS The [facility] offers sequential screenings for women who are [...] It will require an appointment with our heat treatment technician. This is not an ultrasound performed [...] the above symptoms, contact our office at [phone] and ask to speak with a nurse. After hours, you can call doctors registry at [phone] OR call [facility] at [phone] and ask to have the doctor automotive production worker paged. If you consider this an emergency, dial 9-1-1 or go to your nearest emergency department. NEED HELP? Are you dealing with a violent or abusive relationship? Are you a victim of rape or sexual assult? Call [facility] ([place]) 24 hour Crisis Hotline: 218.281.7751 or 302-780-8459. MANUAL Your Guide to a Healthy manual is now on-line. Visit [email or web address] [email or web address] to download your free copy documented in this encounter [facility] 09-27-2024 Note HNO ID: [id number] Author: MOSES CARUSO MD Service: ? Author Type: Physician Type: Progress Notes Filed: 09/27/2024 10:08 Note Text: /Pediatric Cardiology Consultation Chaya Fermin APRN CIVIL ENGINEERING PROJECT MANAGER NAME: Bryce Ramirez Date of : 1990 Date of Visit: September 27, 2024 Estimated Date of Delivery: 01/15/25 Dear Chaya Fermin, I had the pleasure of seeing your patient, Ms. Bryce Ramirez, for a echocardiogram at the [facility] in [place]. As you know, she is a 34 year old year old female at 24 weeks 2 days gestation who is here for a screening echocardiogram due to IVF/surrogate . She has a benign past medical and surgical history and otherwise had an uncomplicated so far. Genetic testing reportedly included embryo testing. Her current medications include aspirin and vitamins. She denies any medication allergies. Family not present during today's exam, so unable to ask family history. She denies any alcohol, tobacco, or drug use during the . She plans to deliver in [place]. A full echocardiogram was performed and reviewed by myself. Please see the full report in Chart Review/Cardiac tab. echocardiogram today showed normal intracardiac segmental anatomy. The biventricular size and function was qualitatively normal. No significant left- right size discrepancy. No significant ventricular level shunts. No evidence for hydrops. The ductus venosus, umbilical vein and umbilical artery Dopplers were normal. Echocardiogram Summary: 1. Segmental anatomy and situs are normal. 2. No valvar abnormalities seen. 3. Qualitatively normal right ventricular size and wall thickness with normal systolic function. 4. Normal left ventricular size and wall thickness with normal systolic function. 5. No obvious VSD. 6. Left aortic and ductal arches. 7. Aortic arch is widely patent. 8. Ductal arch is widely patent with normal intrauterine right to left flow. 9. Normal main and branch pulmonary arteries. 10. Right and left sided pulmonary venous drainage was demonstrated. 11. Widely patent foramen ovale with normal intrauterine right to left flow. 12. Trivial physiologic posterior pericardial effusion. 13. Normal heart rate and rhythm. 14. Normal Dopplers including ductus venosus, MCA, umbilical artery/vein (three vessel cord). 15. No prior studies or reports. We reviewed the findings of today's echocardiogram with Ms. Bryce Ramirez with the help of a diagram. I explained normal and cardiac anatomy and physiology. I also explained the limitations of a echocardiogram, including that the foramen ovale and ductus arteriosus are normal structures and are present in the fetus today, however, we are unable to predict if they close normally after . In addition, we reviewed that certain cardiac anomalies are challenging to diagnose on echocardiography, including atrial septal defects, small ventricular septal defects, minor valve abnormalities, pulmonary vein anomalies and coarctation of the aorta. Based on today's echocardiogram, Assessment 1. IVF/surrogate 2. Normal intracardiac segmental anatomy, no major intracardiac structural defects Plan: 1. We feel that she does not require further follow up with the cardiology team unless new or further concerns arise. We recommended a cardiac exam and a echocardiography only if there is an abnormal cardiac exam or any concerns after the delivery. 2. Regular follow up with the MFM/obstetric service as scheduled. I reviewed all of this information with Ms. Bryce Ramirez, who verbalized understanding and was in agreement with the plan of care. All her questions were answered. Thank you for allowing me to participate in the care of your patient. If you have any questions or concerns, please feel free to contact me at any time. Sincerely, Moses Caruso MD [employer] Promoter of Pediatrics Division of Pediatric Cardiology [facility] During this patient visit I have spent approximately 40 minutes out of 45 in coordinating/counseling about the above findings and limitations of echocardiogram. [facility] 09-27-2024 History of Present illness Narrative /Pediatric Cardiology Consultation Chaya Fermin APRN CIVIL ENGINEERING PROJECT MANAGER NAME: Bryce Ramirez Date of : 1990 Date of Visit: September 27, 2024 Estimated Date of Delivery: 01/15/25 Dear Chaya Fermin, I had the pleasure of seeing your patient, Ms. Bryce Ramirez, for a echocardiogram at the [facility] in [place]. As you know, she is a 34 year old year old female at 24 weeks 2 days gestation who is here for a screening echocardiogram due to IVF/surrogate . She has a benign past medical and surgical history and otherwise had an uncomplicated so far. Genetic testing reportedly included embryo testing. Her current medications include aspirin and vitamins. She denies any medication allergies. Family not present during today's exam, so unable to ask family history. She denies any alcohol, tobacco, or drug use during the . She plans to deliver in [place]. A full echocardiogram was performed and reviewed by myself. Please see the full report in Chart Review/Cardiac tab. echocardiogram today showed normal intracardiac segmental anatomy. The biventricular size and function was qualitatively normal. No significant left- right size discrepancy. No significant ventricular level shunts. No evidence for hydrops. The ductus venosus, umbilical vein and umbilical artery Dopplers were normal. Echocardiogram Summary: 1. Segmental anatomy and situs are normal. 2. No valvar abnormalities seen. 3. Qualitatively normal right ventricular size and wall thickness with normal systolic function. 4. Normal left ventricular size and wall thickness with normal systolic function. 5. No obvious VSD. 6. Left aortic and ductal arches. 7. Aortic arch is widely patent. 8. Ductal arch is widely patent with normal intrauterine right to left flow. 9. Normal main and branch pulmonary arteries. 10. Right and left sided pulmonary venous drainage was demonstrated. 11. Widely patent foramen ovale with normal intrauterine right to left flow. 12. Trivial physiologic posterior pericardial effusion. 13. Normal heart rate and rhythm. 14. Normal Dopplers including ductus venosus, MCA, umbilical artery/vein (three vessel cord). 15. No prior studies or reports. We reviewed the findings of today's echocardiogram with Ms. Bryce Ramirez with the help of a diagram. I explained normal and cardiac anatomy and physiology. I also explained the limitations of a echocardiogram, including that the foramen ovale and ductus arteriosus are normal structures and are present in the fetus today, however, we are unable to predict if they close normally after . In addition, we reviewed that certain cardiac anomalies are challenging to diagnose on echocardiography, including atrial septal defects, small ventricular septal defects, minor valve abnormalities, pulmonary vein anomalies and coarctation of the aorta. Based on today's echocardiogram, Assessment 1. IVF/surrogate 2. Normal intracardiac segmental anatomy, no major intracardiac structural defects Plan: 1. We feel that she does not require further follow up with the cardiology team unless new or further concerns arise. We recommended a cardiac exam and a echocardiography only if there is an abnormal cardiac exam or any concerns after the delivery. 2. Regular follow up with the MFM/obstetric service as scheduled. I reviewed all of this information with Ms. Bryce Ramirez, who verbalized understanding and was in agreement with the plan of care. All her questions were answered. Thank you for allowing me to participate in the care of your patient. If you have any questions or concerns, please feel free to contact me at any time. Sincerely, Moses Caruso MD [employer] Pediatrics Division of Pediatric Cardiology [facility] During this patient visit I have spent approximately 40 minutes out of 45 in coordinating/counseling about the above findings and limitations of echocardiogram. documented in this encounter [facility] 09-15-2024 Telephone encounter Note I called patient because she had not viewed MyChart message. Discussed importance of us getting her medical records and informed her that medical release form was attached to previous MyChart message that she hasn't reviewed. Patient states she will contact previous provider and check her MyChart message [facility] 09-15-2024 Miscellaneous Notes I called patient because she had not viewed MyChart message. Discussed importance of us getting her medical records and informed her that medical release form was attached to previous MyChart message that she hasn't reviewed. Patient states she will contact previous provider and check her MyChart message Left message for Pt informing her mychart message would be sent and if she had questions/concerns to call office. Kandy Rivers RN Images from the original note were not included. Chaya Fermin APRN.CNM P Wstr Ob-Dust Mixer Pool Do we still not have her medical records? I don't see them scanned or her labs uploaded into the chart for her record. Am I missing them? Chaya Burciaga APRN.CNM documented in this encounter [facility] 09-14-2024 Telephone encounter Note Left vm to schedule echo [phone] opt 2 [facility] 09-14-2024 Miscellaneous Notes Left vm to schedule echo [phone] opt 2 documented in this encounter [facility] 09-07-2024 Telephone encounter Note Left message for Pt informing her mychart message would be sent and if she had questions/concerns to call office. Kandy Rivers RN [facility] 09-07-2024 Telephone encounter Note Images from the original note were not included. Chaya Fermin APRN.CNM P Wstr Ob-Dust Mixer Pool Do we still not have her medical records? I don't see them scanned or her labs uploaded into the chart for her record. Am I missing them? Chaya Burciaga APRN.CNM [facility] 08-30-2024 Progress note Formatting of t his note might be different from the original. MARVIN- [facility] 08-30-2024 Miscellaneous Notes MARVIN- documented in this encounter [facility] 08-30-2024 Note HNO ID: [id number] Author: CHAYA FERMIN APRN.CNM Service: ? Author Type: Assistant Merchandise Manager Type: Progress Notes Filed: 09/06/2024 16:52 Note Text: MARVIN-S: Bryce Ramirez is a 34 year old female who presents at 20w2d with DIDIER:01/15/2025, by Last Menstrual Period for a routine visit. Denies headache, visual changes, chest pain, shortness of breath, vaginal bleeding, leakage of fluid, or dysuria. Feeling well, no complaints. O: See flow sheet Gen: No apparent distress Abd: Gravid, nontender ASSESSMENT/PLAN: 1. Supervision of other high risk pregnancies, second trimester -Continue PNV and ASA -Return for anatomy US at 20 weeks 2. 20weeks gestation of 3. Surrogate -Records sent from previous practice with ultrasounds and labs. 4. Anxiety and depression -No medication, coping well 5. History of PCOS 6. Exposure to genital herpes -HSV prophylaxis at 36wk 7. resulting from in vitro fertilization in first trimester -Growth US every 4 weeks starting at 28wk - echo ordered -Discussed IOL at 39 weeks as recommendation PTL precautions reviewed and when to call RTO in 4 weeks Chaya Fermin APRN.CNM [facility] 08-30-2024 History of Present illness Narrative MARVIN-S: Bryce Ramirez is a 34 year old female who presents at 20w2d with DIDIER:01/15/2025, by Last Menstrual Period for a routine visit. Denies headache, visual changes, chest pain, shortness of breath, vaginal bleeding, leakage of fluid, or dysuria. Feeling well, no complaints. O: See flow sheet Gen: No apparent distress Abd: Gravid, nontender ASSESSMENT/PLAN: 1. Supervision of other high risk pregnancies, second trimester -Continue PNV and ASA -Return for anatomy US at 20 weeks 2. 20weeks gestation of 3. Surrogate -Records sent from previous practice with ultrasounds and labs. 4. Anxiety and depression -No medication, coping well 5. History of PCOS 6. Exposure to genital herpes -HSV prophylaxis at 36wk 7. resulting from in vitro fertilization in first trimester -Growth US every 4 weeks starting at 28wk - echo ordered -Discussed IOL at 39 weeks as recommendation PTL precautions reviewed and when to call RTO in 4 weeks Chaya Fermin APRN.CNM documented in this encounter [facility] 08-30-2024 Instructions Chaya Fermin APRN.CNM - 08/30/2024 9:04 AM EDT Please call [phone], select option 2, to schedule Echocardiogram SIGNS AND SYMPTOMS OF LABOR 1. Contractions every 10 minutes or more often 2. Clear, pink, or brownish fluid (water) leaking from vagina 3. Feeling that baby is pushing down, pressure 4. Low, dull backache 5. Cramps that feel like a period 6. Cramps with or without diarrhea If you notice any of the above symptoms, contact our office at [phone] and ask to speak with a nurse. After hours, you can call doctors registry at [phone] OR call [facility] at [phone] and ask to have the doctor automotive production worker paged. If you consider this an emergency, dial 9-1-5 or go to your nearest emergency department. NEED HELP? Are you dealing with a violent or abusive relationship? Are you a victim of rape or sexual assult? Call [facility] ([place]) 24 hour Crisis Hotline: 377.243.2588 or 063-417-2655. MANUAL Your Guide to a Healthy manual is now on-line. Visit [email or web address] [email or web address] to download your free copy documented in this encounter [facility] 08-03-2024 Instructions Liane Mccollum APRN.CNP - 08/03/2024 7:57 AM EDT -Begin riboflavin (B2) 200mg twice daily as headache preventative. -Begin cyproheptadine 4mg every 12 hours as needed as migraine abortive. -Begin Flexeril 5mg three times daily as needed as prescribed by OB. -Continue OTC Tylenol as needed but recommend limiting use to no more than 10 days per month to prevent medication overuse headache. documented in this encounter [facility] 08-03-2024 History of Present illness Narrative [facility] Neurologic Creole New Patient Evaluation This visit was conducted via virtual platform. I have communicated my name and active licensure. The patient's identity and physical location were verified at the time of this visit. Either the patient or their legal health and safety representative has been informed of the risks and benefits of -- and alternatives to -- treatment through a remote evaluation and consents to proceed with the evaluation remotely. CHIEF COMPLAINT: Headache Bryce Ramirez is a 33 year old accompanied by self. Consult was requested by Chaya Fermin APRN.CNM for an opinion regarding above CC. My final impression and recommendations will be communicated back to the requesting physician by way of the shared medical record or fax. August 03, 2024 HPI: Ms. Ramirez presents today secondary to issues of headache. Hx of migraines and headaches since 5th grade; hormonal. Has frequent headaches and has two migraines per month. Has had a migraine daily since . Some migraines will last 2-3 days. Muscles feel sore. Loses vision L side. Jaw locks up. Feels sensitive in occipital region. Has been wearing KT tape on face to keep jaw relaxed. Happens daily around 3-4pm. Then down for the rest of the day. Had to do 10 weeks of injection for IVF; she is a surrogate. Headaches started during this. Vision loss and jaw involvement. Migraine HPI HEADACHE LOCATION: occipital (whole base of skull), jaw, retro orbital, temporal R and L (squeezes head and feels relief) Neck pain? No (chronic neck pain work related) Onset: See above. Quality: stabbing- temples and throbbing temples Photophobia? Yes Phonophobia? Yes Nausea? Yes Vomitting? Yes Aura? How long? No None - jaw gets tight and locks up prior Worse with activity? Yes Severe? 8/10 (past migraines were probably about 7/10) Feels most of the pain is because migraines are lasting longer. Frequency: daily, but the patient has headache free intervals Duration? 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 Can be worse with migraine when laying down. Positional? No; needs to lay down to improve headaches but cannot be flat; sits in recliner. Has to lay flat on back without pillow. Sometimes feels like she is on inversion pillow when laying flat; cannot relax and feels dizzy. Double vision? No Visual obscurations? Yes; L eye vision changes. Feels like she doesn't have glasses on. Stays blurred even with glasses. If she gets a migraine she has to shoe puller as she cannot see. Would usually take Maxalt when this occurred and then sleep. Has always this with her migraines; even prior to starting IVF. Only started Maxalt a couple years ago (). Used to just lay in cold dark room prior to meds. The past couple years would not break without Maxalt. Worse with valsalva/sneeze/cough? No; anytime she has to hold urine for >5 min can have a headache. Has been the same since childhood. Caffeine intake? 80mg per day/med coffee over two days Water intake? Four to seven 8 ounce glasses daily; supplements with electrolytes Alcohol? Denies Tobacco? No Drug use? No Triggers? Menstrual cycle, bright lights, too hot Sleep concerns? Yes; naps daily, tosses and turns often Mood concerns? Yes; anx/dep (took Prozac in the past for PPD) History of concussion? Yes; played soccer (injury to above with stitches in 2006), hit head on pipe in 2011 Plans for /current BC? CURRENTLY 16.5 weeks; no hx of htn Family Hx of migraines, aneurysms, brain tumors: No migraine hx. Uncle with cardiac aneurysm. Ophthalmology: Due in December (last was in 12/2023) Renal stone No, cardiovascular disease/arrhythmia No, cerebrovascular disease (TIA/stroke) No Previous/Current Headache treatment Preventative: Topamax -past Prozac -past Magnesium oxide- makes her drowsy and difficulty waking up the next morning Rescue: Sumatriptan- past Maxalt- used to help migraine frequency; not taking currently d/t Flexeril Massage therapy helps. Cold dark room helps. Uses gel pack. Sometimes sitting in the recliner is better. # of doses of abortive medications per month: > or = 10 days/month (or 8 for opiates, 5 for barbiturates) Medication Overuse Headache concern? Yes -usually switches between ibuprofen and Tylenol but cannot do currently Currently taking allergy medication for sinuses; generic Veda. Also taking ASA. Goes to chiro every three weeks but hasn't been able to go recently. Has to wait until through first trimester d/t previous miscarriage. PAST MEDICAL HISTORY Diagnosis Date anxiety Anxiety and depression 05/28/2022 History of PCOS Low HDL (under 40) 06/2013 Migraine Patellofemoral syndrome, bilateral b/l, sees PT Proteinuria as a teenager Tendonitis of shoulder, right has seen PT PAST SURGICAL HISTORY Procedure Laterality Date COLONOSCOPY 06/04/2021 normal exam, int hemorrhoids, 2 cm submucosal nodule cecum EGD 06/04/2021 esophagitis, fundic gland polyps TONSILLECTOMY PRIMARY/SECONDARY <AGE 12 Tonsillectomy TYMPANOSTOMY LOCAL/TOPICAL ANESTHESIA Age 5 or 6 years. Current Outpatient Medications on File Prior to Visit Medication Sig cyclobenzaprine (FLEXERIL) 5 mg tablet Take 1 tablet by mouth three times a day. PNV no.95/ferrous fum/folic ac ( ORAL) Take by mouth. aspirin, enteric coated (ECOTRIN LOW STRENGTH) 81 mg EC tablet Take 1 tablet by mouth once daily. ergocalciferol, vitamin D2, (VITAMIN D2 ORAL) Take by mouth. rizatriptan (MAXALT-SUPERVISOR ROD PLACING) 10 mg disintegrating tablet Take 1 tablet (10 mg) by mouth as needed. May repeat in 2 hours if needed No current facility-administered medications on file prior to visit. Social History Tobacco Use Smoking status: Never Smokeless tobacco: Never Vaping Use Vaping status: Never Used Substance Use Topics Alcohol use: Not Currently Comment: occasionally, not while Drug use: No ALLERGIES No Known Allergies Review of Systems: ENT: denies loss of hearing, vertigo (only when lying flat) Cardiopulmonary: denies chest pain, palpitations Respiratory: denies shortness of breath GI: denies recent diarrhea, constipation : denies incontinence Musculoskeletal: denies weakness Neuro: denies tremors, loss of feeling, + dizziness (when squatting and standing feels lightheaded), seizure, blackout, paresthesia, facial paresthesia, facial weakness, difficulty in speech, slurring of words, dysarthria, dysphagia, + headache Physical Exam: There were no vitals filed for this visit. Patient is alert and in no distress. Dress is appropriate. Mood is appropriate Breathing appears regular and unstressed Neurologic examination: Exam is observational at best. General Appearance: well appearing, in no acute distress Mental status evaluation during the interview and examination showed normal level of consciousness, orientation, language, memory, praxis, and higher intellectual function Affect: Normal Speech: normal Cranial Nerves: III, IV, -EOMI: full. VII-face is symmetric without evidence of weakness. VIII-hearing intact. XII-tongue protrudes midline with normal movements. Labs/studies: MRI Brain WO/W 07/23/12: RESULT: There are no extra-axial collections. No significant intracranial mass effect or midline shift is seen. Ventricles are normal in size and configuration. No evidence of acute intracranial hemorrhage is seen. Small retention cyst in the right maxillary sinus. Remaining visualized paranasal sinuses are clear. Calvarium is unremarkable. No abnormal enhancement is seen. No evidence of restricted diffusion is seen. IMPRESSION: UNREMARKABLE MRI BRAIN WITH AND WITHOUT CONTRAST. Assessment/Plan: G43.809 Other migraine without status migrainosus, not intractable Comment: Pt presenting today for headaches. She reports a hx of migraine headaches since early teens. Migraines would occur 2x per month. Headaches can be located to temporal region, occipital region, retro orbitally, and in the jaw. Headaches are associated with photo/phonophobia, n/v, and visual disturbance (L eye becomes blurred). She is currently after completing IVF x10 weeks. During that time she began to experience more frequent headaches. Headaches remain consistent in location with associated sensitivities and visual disturbance, however, have slightly increased in severity from 7/10 to 8/10 and have longer duration lasting up to three days. SONI not positional, exertional, or associated with autonomic features. She has a migraine daily. She reports improvement with massage and is taking OTC Tylenol as migraine abortive. She has attempted to utilize magnesium oxide as preventative with SE and was recently prescribed a muscle relaxant by her OB provider which she has not yet started. Headaches remain consistent with migraine without aura. Possible tension component. After discussion will proceed with plan below (taking in consideration that medication options are limited d/t ). -MRI Brain WO given worsening of headache during . -Begin riboflavin (B2) 200mg twice daily as headache preventative. -Begin cyproheptadine 4mg every 12 hours as needed as migraine abortive (should not take with other antihistamine). -Begin Flexeril 5mg three times daily as needed as prescribed by OB. -Continue OTC Tylenol as needed but recommend limiting use to no more than 10 days per month to prevent medication overuse headache. [facility] on 08/03/24 MRI BRAIN WO IVCON CONSULT TO HEADACHE CLINIC Laine Mccollum APRN.CNP I spent a total of 56 minutes on the date of the service which included preparing to see the patient, [id number] patient care, completing clinical documentation, obtaining and/or reviewing separately obtained history, performing a medically appropriate examination, counseling and educating the patient/family/caregiver, and ordering medications, tests, or procedures. Portions of this note were created with electronic dictation and errors in spelling, syntax, and meaning may have occurred. documented in this encounter [facility] 08-03-2024 Note HNO ID: [id number] Author: LAINE MCCOLLUM APRN.CNP Service: ? Author Type: Nurse Practitioner Type: Progress Notes Filed: 08/03/2024 16:32 Note Text: [facility] Neurologic Creole New Patient Evaluation This visit was conducted via virtual platform. I have communicated my name and active licensure. The patient's identity and physical location were verified at the time of this visit. Either the patient or their legal health and safety representative has been informed of the risks and benefits of -- and alternatives to -- treatment through a remote evaluation and consents to proceed with the evaluation remotely. CHIEF COMPLAINT: Headache Bryce Ramirez is a 33 year old accompanied by self. Consult was requested by Chaya Fermin APRN.CNM for an opinion regarding above CC. My final impression and recommendations will be communicated back to the requesting physician by way of the shared medical record or fax. August 03, 2024 HPI: Ms. Ramirez presents today secondary to issues of headache. Hx of migraines and headaches since 5th grade; hormonal. Has frequent headaches and has two migraines per month. Has had a migraine daily since . Some migraines will last 2-3 days. Muscles feel sore. Loses vision L side. Jaw locks up. Feels sensitive in occipital region. Has been wearing KT tape on face to keep jaw relaxed. Happens daily around 3-4pm. Then down for the rest of the day. Had to do 10 weeks of injection for IVF; she is a surrogate. Headaches started during this. Vision loss and jaw involvement. Migraine HPI HEADACHE LOCATION: occipital (whole base of skull), jaw, retro orbital, temporal R and L (squeezes head and feels relief) Neck pain? No (chronic neck pain work related) Onset: See above. Quality: stabbing- temples and throbbing temples Photophobia? Yes Phonophobia? Yes Nausea? Yes Vomitting? Yes Aura? How long? No None - jaw gets tight and locks up prior Worse with activity? Yes Severe? 8/10 (past migraines were probably about 7/10) Feels most of the pain is because migraines are lasting longer. Frequency: daily, but the patient has headache free intervals Duration? 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 Can be worse with migraine when laying down. Positional? No; needs to lay down to improve headaches but cannot be flat; sits in recliner. Has to lay flat on back without pillow. Sometimes feels like she is on inversion pillow when laying flat; cannot relax and feels dizzy. Double vision? No Visual obscurations? Yes; L eye vision changes. Feels like she doesn't have glasses on. Stays blurred even with glasses. If she gets a migraine she has to shoe puller as she cannot see. Would usually take Maxalt when this occurred and then sleep. Has always this with her migraines; even prior to starting IVF. Only started Maxalt a couple years ago (). Used to just lay in cold dark room prior to meds. The past couple years would not break without Maxalt. Worse with valsalva/sneeze/cough? No; anytime she has to hold urine for >5 min can have a headache. Has been the same since childhood. Caffeine intake? 80mg per day/med coffee over two days Water intake? Four to seven 8 ounce glasses daily; supplements with electrolytes Alcohol? Denies Tobacco? No Drug use? No Triggers? Menstrual cycle, bright lights, too hot Sleep concerns? Yes; naps daily, tosses and turns often Mood concerns? Yes; anx/dep (took Prozac in the past for PPD) History of concussion? Yes; played soccer (injury to above with stitches in 2006), hit head on pipe in 2011 Plans for /current BC? CURRENTLY 16.5 weeks; no hx of htn Family Hx of migraines, aneurysms, brain tumors: No migraine hx. Uncle with cardiac aneurysm. Ophthalmology: Due in December (last was in 12/2023) Renal stone No, cardiovascular disease/arrhythmia No, cerebrovascular disease (TIA/stroke) No Previous/Current Headache treatment Preventative: Topamax -past Prozac -past Magnesium oxide- makes her drowsy and difficulty waking up the next morning Rescue: Sumatriptan- past Maxalt- used to help migraine frequency; not taking currently d/t Flexeril Massage therapy helps. Cold dark room helps. Uses gel pack. Sometimes sitting in the recliner is better. # of doses of abortive medications per month: > or = 10 days/month (or 8 for opiates, 5 for barbiturates) Medication Overuse Headache concern? Yes -usually switches between ibuprofen and Tylenol but cannot do currently Currently taking allergy medication for sinuses; generic Veda. Also taking ASA. Goes to chiro every three weeks but hasn't been able to go recently. Has to wait until through (more content not included)... [facility] 08-02-2024 Progress note Formatting of t his note might be different from the original. MARVIN-S: Bryce Ramirez is a 33 year old female who presents at 16w2d with DIDIER:01/15/2025, by Last Menstrual Period for a routine visit. Denies headache, visual changes, chest pain, shortness of breath, vaginal bleeding, leakage of fluid, or dysuria. Feeling well, no complaints. O: See flow sheet Gen: No apparent distress Abd: Gravid, nontender ASSESSMENT/PLAN: 1. Supervision of other high risk pregnancies, second trimester -Continue PNV and ASA -Return for anatomy US at 20 weeks 2. 16 weeks gestation of 3. Surrogate -Records sent from previous practice with ultrasounds and labs. Will be awaiting. 4. Anxiety and depression -No medication, coping well 5. History of PCOS 6. Exposure to genital herpes -HSV prophylaxis at 36wk 7. resulting from in vitro fertilization in first trimester -Growth US PTL precautions reviewed and when to call RTO in 4 wk Chaya Fermin APRN.CNM [facility] 08-02-2024 Miscellaneous Notes MARVIN-S: Bryce Ramirez is a 33 year old female who presents at 16w2d with DIDIER:01/15/2025, by Last Menstrual Period for a routine visit. Denies headache, visual changes, chest pain, shortness of breath, vaginal bleeding, leakage of fluid, or dysuria. Feeling well, no complaints. O: See flow sheet Gen: No apparent distress Abd: Gravid, nontender ASSESSMENT/PLAN: 1. Supervision of other high risk pregnancies, second trimester -Continue PNV and ASA -Return for anatomy US at 20 weeks 2. 16 weeks gestation of 3. Surrogate -Records sent from previous practice with ultrasounds and labs. Will be awaiting. 4. Anxiety and depression -No medication, coping well 5. History of PCOS 6. Exposure to genital herpes -HSV prophylaxis at 36wk 7. resulting from in vitro fertilization in first trimester -Growth US PTL precautions reviewed and when to call RTO in 4 wk Chaya Fermin APRN.CNM documented in this encounter [facility] 08-02-2024 Instructions Tejas Valdez MA - 08/02/2024 12:56 PM EDT SEQUENTIAL SCREENINGS The [facility] offers sequential screenings for women who are [...] It will require an appointment with our heat treatment technician. This is not an ultrasound performed [...] the above symptoms, contact our office at [phone] and ask to speak with a nurse. After hours, you can call doctors registry at [phone] OR call [facility] at [phone] and ask to have the doctor automotive production worker paged. If you consider this an emergency, dial 9-1-4 or go to your nearest emergency department. NEED HELP? Are you dealing with a violent or abusive relationship? Are you a victim of rape or sexual assult? Call [facility] ([place]) 24 hour Crisis Hotline: 305.260.3862 or 595-767-8594. MANUAL Your Guide to a Healthy manual is now on-line. Visit [email or web address] ncyGuide to download your free copy documented in this encounter [facility] 07-26-2024 Telephone encounter Note Called pt to ask what medication was needed refilled.Asked pt to return call. [facility] 07-26-2024 Miscellaneous Notes Called pt to ask what medication was needed refilled.Asked pt to return call. Nothing pended... Radha Brown APRN.CNP Prescription Refill Information The patient has been identified by name and date of : Yes Caregiver verified no other encounters exist for this prescription request: Yes Caregiver confirmed with patient/requestor that no other refills are due, in the near future, with this provider at this time: Yes The last office visit in the department: 06/24/23 Does the patient have a future office visit with this provider/department: No Requested Prescriptions No prescriptions requested or ordered in this encounter Mariel Marroquin LPN July 22, 2024 4:17 PM documented in this encounter [facility] 07-26-2024 Telephone encounter Note Nothing pended... Radha Brown APRN.CIVIL ENGINEERING PROJECT MANAGER [facility] Work Phone: 07-22-2024 Telephone encounter Note Prescription Refill Information The patient has been identified by name and date of : Yes Caregiver verified no other encounters exist for this prescription request: Yes Caregiver confirmed with patient/requestor that no other refills are due, in the near future, with this provider at this time: Yes The last office visit in the department: 06/24/23 Does the patient have a future office visit with this provider/department: No Requested Prescriptions No prescriptions requested or ordered in this encounter Mariel Marroquin LPN July 22, 2024 4:17 PM [facility] 07-12-2024 Progress note Formatting of t his note might be different from the original. MARVIN-S: Bryce Ramirez is a 33 year old female who presents at 13w2d with DIDIER:01/15/2025, by Last Menstrual Period for a routine visit. Denies headache, visual changes, chest pain, shortness of breath, vaginal bleeding, leakage of fluid, or dysuria. Feeling well, no complaints. O: See flow sheet Gen: No apparent distress Abd:nontender ASSESSMENT/PLAN: 1. Supervision of other high risk , antepartum -Continue ASA and PNV -first trimester anatomy US today -Return for anatomy US at 20 weeks 2. 13 weeks gestation of 3. Anxiety and depression -No medication, coping well 4. resulting from in vitro fertilization in first trimester 5. Surrogate -Records sent from previous practice with ultrasounds and labs. Will be awaiting. 6. History of PCOS -HgbA1C ordered PTL precautions reviewed and when to call RTO in 4 weeks Chaya Fermin APRN.CNM [facility] 07-12-2024 Miscellaneous Notes MARVIN-S: Bryce Ramirez is a 33 year old female who presents at 13w2d with DIDIER:01/15/2025, by Last Menstrual Period for a routine visit. Denies headache, visual changes, chest pain, shortness of breath, vaginal bleeding, leakage of fluid, or dysuria. Feeling well, no complaints. O: See flow sheet Gen: No apparent distress Abd:nontender ASSESSMENT/PLAN: 1. Supervision of other high risk , antepartum -Continue ASA and PNV -first trimester anatomy US today -Return for anatomy US at 20 weeks 2. 13 weeks gestation of 3. Anxiety and depression -No medication, coping well 4. resulting from in vitro fertilization in first trimester 5. Surrogate -Records sent from previous practice with ultrasounds and labs. Will be awaiting. 6. History of PCOS -HgbA1C ordered PTL precautions reviewed and when to call RTO in 4 weeks Chaya Fermin APRN.CNM documented in this encounter [facility] 07-12-2024 Instructions Tejas Valdez MA - 07/12/2024 9:53 AM EST SEQUENTIAL SCREENINGS The [facility] offers sequential screenings for women who are [...] It will require an appointment with our heat treatment technician. This is not an ultrasound performed [...] the above symptoms, contact our office at [phone] and ask to speak with a nurse. After hours, you can call doctors registry at [phone] OR call [facility] at [phone] and ask to have the doctor automotive production worker paged. If you consider this an emergency, dial 4--2 or go to your nearest emergency department. NEED HELP? Are you dealing with a violent or abusive relationship? Are you a victim of rape or sexual assult? Call [facility] ([place]) 24 hour Crisis Hotline: 316.624.6419 or 689-788-8070. MANUAL Your Guide to a Healthy manual is now on-line. Visit [email or web address] [email or web address] to download your free copy documented in this encounter [facility] 07-07-2024 Note HNO ID: [id number] Author: CHAYA FERMIN APRN.CNM Service: ? Author Type: Assistant Merchandise Manager Type: Progress Notes Filed: 07/16/2024 17:12 Note Text: Trucking Supervisor offered: Patient declines. INITIAL OB ASSESSMENT HPI: Jessica is a 33 year old White here to establish Obstetrical Care. Patient's last menstrual period was 04/10/2024. from OB Dating Form. was planned, surrogacy Complaints: No OB History Gravida4 Para2 Term2 Preterm0 AB1 Living2 SAB1 IAB0 Ectopic0 Multiple0 Live Births2 Previous history: Prior : No History of 4th degree laceration: Perineal Laceration, 3rd or 4th degree No History of shoulder dystocia: No History of Hypertensive disorders including pre-eclampsia or gestational hypertension: No History of gestational diabetes: Diabetes in No Patient's Risk Screening for delivery: Have you had a prior mcfarlane between 20w and 36w6d? No How many pregnancies have you had before? 3 Did you have a previous baby with a GBS Infection? No Please select all that apply for any prior : N/A MEDICAL/PSYCHOSOCIAL HISTORY: Severe bleeding with delivery Unanswered History question Answer Diagnosis Date Comment Thyroid Disease No Thyroid disease 09/18/2017 Diabetes in No ABO/RH(D) Date Value Ref Range Status 03/03/2019 O POSITIVE Final BMI 36.14 kg/(m2) Last Pap: 03/08/2022 History of abnormal pap: Abnormal Pap No Prior treatment for cervical dysplasia: none. Last HPV: 03/07/2022 History of STDs: N/A Partner History of STDs: None Did you have a partner with Herpes? (!) Yes Tobacco use: No E-Cigarette/Vaping Use: No Caffeine use: Sometimes will have a cup of coffee Drug use: No Alcohol use: No Multivitamin with Folic acid: Yes Would refuse blood transfusion if medically necessary: No Social Needs: How often does this describe you? I don't have enough money to pay my bills: Never Within the past 12 months, have you worried that your food would run out before you had money to buy more? Never In the past 12 months, has lack of reliable transportation kept you from going to medical appointments or work, or from getting things needed for daily living? Never In the past 12 months, have you had any concerns about having a place to live, or about the condition or quality of your housing? Never Would you like more information on any of the following (please check all that apply)? Not interested Social History: Do you have any history of depression, anxiety, PTSD, or other mood problems? Yes Do you have a history of abuse or trauma that may impact your experience? No Are you currently employed? Yes Depression/Anxiety Screening: denies symptoms of depression. OB Depression and Anxiety Screening- This Encounter (since 07/06/2024) Over the past 2 weeks have you felt down, depressed, or hopeless? Negative Over the past two weeks, have you felt little interest or pleasure in doing things?? Negative Feeling nervous, anxious or on edge 0-Not at all Not being able to stop or control worrying 0-Not al all Anxiety Pre-Screening Total (If >/= 3 additional questions will be reviewed) 0 Genetic Screening: Partner present: No Patient verbalized knowledge of partner family health history: Yes Do you or your partner have any personal or family history of defects not previously discussed: No Do you have history of a complicated by anomaly, genetic condition, or demise: No Preeclampsia Risk Screening: Screening for prevention of preeclampsia: High risk factors: None Moderate risk ractors: None OB Risk Screening: Completed, positive findings include: Patient answered 'Yes' to Partner with Herpes Marital Status: Partner: Name: Matti Age: 35 Occupation: [employer] Gender: Male PAST MEDICAL HISTORY Diagnosis Date anxiety Anxiety and depression 05/28/2022 History of PCOS Low HDL (under 40) 06/2013 Migraine Patellofemoral syndrome, bilateral b/l, sees PT Proteinuria as a teenager Tendonitis of shoulder, right has seen PT PAST SURGICAL HISTORY Procedure Laterality Date COLONOSCOPY 06/04/2021 normal exam, int hemorrhoids, 2 cm submucosal nodule cecum EGD 06/04/2021 esophagitis, fundic gland polyps TONSILLECTOMY PRIMARY/SECONDARY Tonsillectomy TYMPANOSTOMY LOCAL/TOPICAL ANESTHESIA Age 5 or 6 years. Current Outpatient Medications Medication Sig Dispense Refill ergocalciferol, vitamin D2, (VITAMIN D2 ORAL) Take by mouth. rizatriptan (MAXALT-SUPERVISOR ROD PLACING) 10 mg disintegrating tablet Take 1 tablet (10 mg) by mouth as needed. May repeat in 2 hours if needed 12 tablet 0 FLUoxetine (PROZAC) 20 mg capsule Take 1 capsule by mouth once daily. 30 capsule 5 FLUoxetine (PROZAC) 10 mg capsule Take 1 capsule by mouth once daily. With 20 mg capsule to total 30 mg a day 90 capsule (more content not included)... [facility] 07-07-2024 History of Present illness Narrative Trucking Supervisor offered: Patient declines. INITIAL OB ASSESSMENT HPI: Jessica is a 33 year old White here to establish Obstetrical Care. Patient's last menstrual period was 04/10/2024. from OB Dating Form. was planned, surrogacy Complaints: No OB History Gravida4 Para2 Term2 Preterm0 AB1 Living2 SAB1 IAB0 Ectopic0 Multiple0 Live Births2 Previous history: Prior : No History of 4th degree laceration: Perineal Laceration, 3rd or 4th degree No History of shoulder dystocia: No History of Hypertensive disorders including pre-eclampsia or gestational hypertension: No History of gestational diabetes: Diabetes in No Patient's Risk Screening for delivery: Have you had a prior mcfarlane between 20w and 36w6d? No How many pregnancies have you had before? 3 Did you have a previous baby with a GBS Infection? No Please select all that apply for any prior : N/A MEDICAL/PSYCHOSOCIAL HISTORY: Severe bleeding with delivery Unanswered History question Answer Diagnosis Date Comment Thyroid Disease No Thyroid disease 09/18/2017 Diabetes in No ABO/RH(D) Date Value Ref Range Status 03/03/2019 O POSITIVE Final BMI 36.14 kg/(m^2) Last Pap: 03/08/2022 History of abnormal pap: Abnormal Pap No Prior treatment for cervical dysplasia: none. Last HPV: 03/07/2022 History of STDs: N/A Partner History of STDs: None Did you have a partner with Herpes? (!) Yes Tobacco use: No E-Cigarette/Vaping Use: No Caffeine use: Sometimes will have a cup of coffee Drug use: No Alcohol use: No Multivitamin with Folic acid: Yes Would refuse blood transfusion if medically necessary: No Social Needs: How often does this describe you? I don't have enough money to pay my bills: Never Within the past 12 months, have you worried that your food would run out before you had money to buy more? Never In the past 12 months, has lack of reliable transportation kept you from going to medical appointments or work, or from getting things needed for daily living? Never In the past 12 months, have you had any concerns about having a place to live, or about the condition or quality of your housing? Never Would you like more information on any of the following (please check all that apply)? Not interested Social History: Do you have any history of depression, anxiety, PTSD, or other mood problems? Yes Do you have a history of abuse or trauma that may impact your experience? No Are you currently employed? Yes Depression/Anxiety Screening: denies symptoms of depression. OB Depression and Anxiety Screening- This Encounter (since 07/06/2024) Over the past 2 weeks have you felt down, depressed, or hopeless? Negative Over the past two weeks, have you felt little interest or pleasure in doing things? Negative Feeling nervous, anxious or on edge 0-Not at all Not being able to stop or control worrying 0-Not al all Anxiety Pre-Screening Total (If >/= 3 additional questions will be reviewed) 0 Genetic Screening: Partner present: No Patient verbalized knowledge of partner family health history: Yes Do you or your partner have any personal or family history of defects not previously discussed: No Do you have history of a complicated by anomaly, genetic condition, or demise: No Preeclampsia Risk Screening: Screening for prevention of preeclampsia: High risk factors: None Moderate risk ractors: None OB Risk Screening: Completed, positive findings include: Patient answered 'Yes' to Partner with Herpes Marital Status: Partner: Name: Matti Age: 35 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 Current Outpatient Medications Medication Sig Dispense Refill ergocalciferol, vitamin D2, (VITAMIN D2 ORAL) Take by mouth. rizatriptan (MAXALT-SUPERVISOR ROD PLACING) 10 mg disintegrating tablet Take 1 tablet (10 mg) by mouth as needed. May repeat in 2 hours if needed 12 tablet 0 FLUoxetine (PROZAC) 20 mg capsule Take 1 capsule by mouth once daily. 30 capsule 5 FLUoxetine (PROZAC) 10 mg capsule Take 1 capsule by mouth once daily. With 20 mg capsule to total 30 mg a day 90 capsule 3 FLUoxetine (PROZAC) 20 mg capsule Take 1 capsule by mouth once daily. With 10 mg capsule to total 30 mg a day 90 capsule 3 metFORMIN (GLUCOPHAGE) 500 mg tablet Take 1 tablet by mouth three times a day with meals. (Patient not taking: Reported on 01/01/2024) 90 tablet 0 No current facility-administered medications for this visit. Allergies As of Date: 07/07/2024 (No Known Allergies) Fully Assessed 07/07/2024 Does patient have penicillin allergy: No REVIEW OF SYSTEMS: GENERAL: Negative for: Fever or Chills HEENT: [...] vaginal itching, vaginal discharge, hematuria or dysuria SENSITIVE EXAM: The sensitive examination was discussed with the Patient or Patient's Authorized Agricultural Equipment Operator. As applicable, any other physician, advance practice provider, medical student, or other health professional student that will be observing or involved in the sensitive examination for educational or training purposes was discussed with the Patient or Authorized Agricultural Equipment Operator. The Patient or Authorized Agricultural Equipment Operator has agreed to proceed with the sensitive examination. (Sensitive examination includes inspection and/or palpation of the breasts, pelvis, prostate and anorectal regions). PHYSICAL EXAM: BP 110/78 Ht 5' 3 (1.60m) Wt 204 lb (92.5kg) LMP 04/10/2024 BMI 36.15 kg/(m^2). GENERAL: pleasant in no apparent distress DERMATOLOGY: Normal, without lesions, non-icteric, and non-hirsute NECK: Supple, full range of motion, no adenopathy, and thyroid normal CHEST: Normal inspiratory effort BREAST: soft, non-tender, symmetric, no dominant mass, normal nipple-areolar complex, no lymphadenopathy, and no nipple discharge ABDOMEN: soft, non-tender, and no masses NEURO: alert and oriented x3,exam grossly non-focal PELVIS: External genitalia normal without lesions. Perineal body intact. No vaginal or cervical lesions. Cervix closed. Uterus 12 week size. No adnexal masses or tenderness. Clinical Pelvimetry: Pelvimetry clinically assessed as adequate Limited OB ultrasound exam: not performed ASSESSMENT: 33 year old at 12w4d wks gestational age PLAN: 1) Patient oriented to practice. Patient given new OB orientation folder. Discussed nutrition, folic acid supplementation, dietary guidelines, exercise, smoking, alcohol, caffeine, and drug use. Discussed gestational weight gain guidelines. Discussed routine OB labs including STD/HIV. Discussed hemoglobin electrophoresis. Patient: Accepts 2) Screening: Hemoglobin A1C: ordered Baby Aspirin: The patient has been counseled about the potential benefits of low dose aspirin in and our recommendation that this be offered to all patients, regardless of whether they meet the high risk criteria specified above. She Accepts Aneuploidy Screening: Completed prior to IVF 3) Patient offered option of Virtual Visits. Patient prefers in person visits. 4) IVF , testing and recommend IOL at 39wk. Request records. Follow up in 4 weeks or sooner prn. Chaya Fermin APRN.CNM documented in this encounter [facility] 07-07-2024 Instructions Heather Steward MA - 07/07/2024 1:00 PM EST Please select the following link to access the [facility] Your Guide to a Healthy . [email or web address] documented in this encounter [facility] 01-01-2024 History of Present illness Narrative 1. Myopia, bilateral 2. Regular astigmatism of both eyes A: Good vision, fit, and comfort in current contact lenses. P: Finalized new spec rx. Gave trials of contact lenses (toric and sphere), patient to let me know which she prefers. Also Educated pt on proper wear and care of contact lenses. Return to clinic in one year for contact lens evaluation or sooner with any problems. 3. Dry eye syndrome of bilateral lacrimal glands Recommended gel nightly and artificial tears (Systane PF) 2-3x daily Follow-up in 1 year or sooner as needed Perla Bailey OD January 01, 2024 10:31 AM documented in this encounter [facility] 01-01-2024 Instructions Perla Bailey, OD - 01/01/2024 8:59 AM EDT Use Systane Complete or Refresh Relieva (preservative free) 2-3 times daily Use Systane, Refresh or Blink gel nightly before bed in both eyes documented in this encounter [facility] 04-30-2023 History of Present illness Narrative Pt LWBS d/t family emergency documented in this encounter [facility] 04-29-2023 History of Present illness Narrative This is an Express Care eVisit note for Bryce Griffinit/Questionnaire reviewed The chief complaint for the visit - Patient presents with: Ear Problem Sinus Problem Recommendations/Treatment plan - See My Chart Message to patient Neda Carr APRN.CIVIL ENGINEERING PROJECT MANAGER I spent <5 minutes on this eVisit in chart review and coordination of care. documented in this encounter [facility] 01-09-2023 Instructions Jasmin Boyd APRN.FRANKLYN - 01/09/2023 7:38 AM EDT Get fasting labs completed today Increase Prozac 30 mg daily. Continue to take all medication as prescribed. Continue to eat a well balanced diet and get some form of exercise. Follow up in 1 month for medication check, may be a virtual or phone visit. Health Promotion: - Eat healthy -- go to [email or web address] to get started - Have a yearly physical - Get at least 30 minutes of physical activity daily - Get at least 7 to 8 hours of sleep each night - Reach and maintain a healthy weight - Get help to quit or don't start smoking - Limit alcohol use to one drink or less - Do not use illegal drugs or misuse prescription drugs - Wear a helmet when riding a bike and wear protective gear for sports - Wear a seatbelt in cars and not text and drive - Wear sunscreen documented in this encounter [facility] 01-09-2023 History of Present illness Narrative This is a 32 year old female who presents today with: Patient presents with: Physical: for school HISTORY OF PRESENT ILLNESS: Bryce Ramirez is a 32 year old female. Patient presents with: Physical: for school Patient of Dr. Pugh here in the office for wellness exam. School: Will need TB test. Will be going to [facility] for massage therapy. Diet: Eating well balanced diet. Exercise: Staying active outdoors, hiking. Vision: Had exam, wears glasses. Dental: Just had exam, no difficulties. Sleep: Has been taking magnesium which is helpful. Getting 6 hours per night. Tried trazodone in the past, too sedating. Anxiety/depression: Taking Prozac 20 mg daily. Medication has been helpful but having increased irritability. Would like to increase mg if possible. Denies any increased sadness or SI/HI. PCOS: Working on diet and lifestyle changes at home. Taking metformin 500 mg 3 times daily. GERD: Was taking Prilosec 20 mg daily. Watching diet. Stopped taking. Migraine headaches: Taking Maxalt 10 mg as needed. Getting 1 headache every couple of weeks. Medication is effective. Pap: completed in 2021, normal, HPV negative. Menses: Irregular, will spot a couple of days each month. Vaccines: Up-to-date. PAST MEDICAL HISTORY: PAST MEDICAL HISTORY Diagnosis Date anxiety Anxiety and depression 05/28/2022 History of PCOS Low HDL (under 40) 06/2013 Migraine Patellofemoral syndrome, bilateral b/l, sees PT Proteinuria as a teenager Tendonitis of shoulder, right has seen PT PAST SURGICAL HISTORY Procedure Laterality Date COLONOSCOPY 06/04/2021 normal exam, int hemorrhoids, 2 cm submucosal nodule cecum EGD 06/04/2021 esophagitis, fundic gland polyps TONSILLECTOMY PRIMARY/SECONDARY <AGE 12 Tonsillectomy TYMPANOSTOMY LOCAL/TOPICAL ANESTHESIA Age 5 or 6 years. ALLERGIES Patient has no known allergies. MEDICATIONS Current Outpatient Medications Medication Sig FLUoxetine (PROZAC) 20 mg capsule Take 1 capsule by mouth once daily. metFORMIN (GLUCOPHAGE) 500 mg tablet Take 1 tablet by mouth three times daily with meals. omeprazole (PRILOSEC) 20 mg capsule Take 2 capsules by mouth once daily. rizatriptan (MAXALT-SUPERVISOR ROD PLACING) 10 mg disintegrating tablet Take 1 tablet by mouth as needed. May repeat in 2 hours if needed traZODone (DESYREL) 50 mg tablet Take 1 tablet by mouth daily at bedtime. Prn for insomnia Surgical Lubricant Jelly gel For MRI Female Pelvis, MRI department to provide. Administer intra-vaginal Surgilube immediately prior the MRI procedure (total amount to patient toleranace). baclofen vaginal suppository 10 mg (CPD) Unwrap and insert 1 Suppository vaginally daily at bedtime as directed. No current facility-administered medications for this visit. FAMILY HISTORY Problem Relation Age of Onset Hypertension Mother Lipids Mother Heart Mother [place] at age 50 Hypertension Father Lipids Father No Known Problems Brother Hypertension Maternal Grandmother Lipids Maternal Grandmother Heart Maternal Grandfather 40 [place] age 40 Cancer Paternal Grandmother breast Hypertension Paternal Grandfather Lipids Paternal Grandfather No Known Problems Daughter Social History Tobacco Use Smoking status: Never Smokeless tobacco: Never Vaping Use Vaping Use: Never used Substance Use Topics Alcohol use: Not Currently Comment: occasionally, not while Drug use: No REVIEW OF SYSTEMS GENERAL: No weight loss, malaise or fevers/chills HEENT: Negative for frequent or significant headaches, No changes in hearing or vision. NECK: Negative for lumps, goiter, pain and significant neck swelling RESPIRATORY: Negative for cough, hemoptysis, wheezing, dyspnea or shortness of breath CARDIOVASCULAR: Negative for chest pain, leg swelling, orthopnea, or palpitations GI: No nausea, vomiting, or diarrhea/constipation. No hematochezia/melena. No heartburn or reflux symptoms. : No history of dysuria, frequency or incontinence MUSCULOSKELETAL: Negative for joint pain or swelling. SKIN: Negative for lesions, rash, and itching ENDOCRINE: Negative for cold or heat intolerance, polyuria, polydipsia and goiter NEURO: No history of headaches, syncope, paralysis, seizures or tremors MOOD: + Irritability EXAM: BP 108/76 Pulse 78 Resp 16 Wt 80.3 kg (177 lb) LMP 01/01/2023 SpO2 98% BMI 31.35 kg/m PHYSICAL EXAM: General Appearance: Well appearing, alert, in no acute distress, well-hydrated, well nourished. Skin: Skin color, texture, turgor normal, no suspicious rashes or lesions. Head: Normocephalic, no masses, lesions, tenderness or abnormalities. Eyes: Anicteric sclera. Pupils are equally round and reactive to light. Extraocular movements are intact. Ears: External ears normal, canals clear. TMs pearly welsh. Neck: Supple, no adenopathy; thyroid symmetric, normal size, no bruits. Lungs: Lungs clear to auscultation. No wheezing, rhonchi, rales. Heart: RRR without murmur, gallop, or rubs. No ectopy. Abdomen: Normal abdominal exam, Abdomen soft, non-tender. Bowel sounds normal. No masses, organomegaly, Negative CVA tenderness. Extremities: No deformities, edema, skin discoloration, clubbing or cyanosis. Good capillary refill. Musculoskeletal: No joint swelling, deformity, or tenderness. Peripheral Pulses: Normal, Capillary refill <2secs, strong peripheral pulses, Pulses palpable. Neurologic: Gait normal. Sensation grossly intact.. Mood: Pleasant, good eye contact, engaged. ASSESSMENT/PLAN: 1. Wellness examination - ICD9: V70.0, ICD10: Z00.00 (primary diagnosis) - Counseled on healthy diet and regular exercise - Calcium intake with supplements or by diet of 1000 mg/day for under 50, 8277-8098 mg/day for 50+ - Discussed need and benefit for weight loss. BMI 31.35 kg/(m^2) - Depression screening tool completed and reviewed with patient. Based on score and interview, patient is already diagnosed with depression and recommended continuing current plan of care. - Follow up for annual exam in one year 2. Anxiety and depression - ICD9: 300.00, 311, ICD10: F41.9, F32.A - Increase Prozac 30 mg daily. - Follow up in 1 month. - FLUOXETINE 20 MG CAPSULE - FLUOXETINE 10 MG CAPSULE 3. PCOS (polycystic ovarian syndrome) - ICD9: 256.4, ICD10: E28.2 - Stable, continue with Metformin and lifestyle changes. 4. Other migraine without status migrainosus, not intractable - ICD9: 346.80, ICD10: G43.809 - Stable, continue with Maxalt. 5. Situational insomnia - ICD9: 307.41, ICD10: F51.09 - Stable, continue with Magnesium. 6. Vitamin D deficiency - ICD9: 268.9, ICD10: E55.9 - Check lab, continue with supplement. - VITAMIN D 25 HYDROXY 7. Hyperlipidemia LDL goal <100 - ICD9: 272.4, ICD10: E78.5 - Control undetermined, due for labs - Counseled on healthy diet and regular exercise - LIPID PANEL BASIC 8. Screening-pulmonary TB - ICD9: V74.1, ICD10: Z11.1 - BLOOD TB SCREEN Follow-up in 1 month or sooner pending test results. Discussed treatment plan and patient voices understanding. Patient's questions answered appropriately. Medications and potential side effects were discussed and patient voices understanding. Jasmin Boyd APRN.FRANKLYN This note was partially generated using [employer] voice recognition system. Note was reviewed for accuracy. There may be minor misspellings or grammar miscues with [employer] voice recognition. documented in this encounter [facility] 10-29-2022 Miscellaneous Notes Patient has been identified by name and date of : Yes Requested Prescriptions Pending Prescriptions Disp Refills FLUoxetine (PROZAC) 20 mg capsule 30 capsule 5 Sig: Take 1 capsule by mouth once daily. RX INSTRUCTIONS: Patient aware RX will be sent to pharmacy. No need to notify patient. Patient last office visit: 09/30/22 Patient next office visit: none scheduled Mercedes Walters MA documented in this encounter [facility] 10-03-2022 Miscellaneous Notes Patient active MyChart. Patient notified via [employer] message. Michelle Singh MA Please inform patient that her vitamin D is low on her labs, needs to be taking at least [id number] international unit(s) a day of vitamin D3 with a meal. Also her cholesterol is high. Needs to cut back on fried/fast/fatty foods and red meats in her diet. Increase lean proteins and green vegetables. Ze Pugh DO documented in this encounter [facility] 09-30-2022 History of Present illness Narrative CC: Bryce Ramirez is a 32 year old female who presents to the office for follow up HPI: Previously at appt on 04/26/22 Mood, difficulty recently with feeling overwhelmed and down/depressed as well as anxious at times. Having a tendency to worry about situations that she knows she can't control such as not wanting the kids to play outside for fear that they will be hurt somehow. No SI or HI. 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 Does have support from her . There are other social situations that are stressing her out including her step son's mother and custody battles. Is going to counseling/therapy. Thinks she needs to be on medication as well PCOS, ? Concern for endometriosis per Delia Fermin. Feels that her mood does fluctuate through the month when she is ovulating and getting ready to menstruate it is worse. She was started on prozac At last OFFICE VISIT on 05/28/2022 Mood, feels it is somewhat improved, less anger and anxiety, letting her kids do some things such as put ornaments on the tree. Still struggling with insomnia and feeling anxious and lack of motivation though. Thinks dose may need to be increased. Has tried melatonin but feels this makes her fatigued through the morning the next day. Migraines, somewhat increased recently, had 2 last month, usually only 1 per month. No new other changes. Use of maxalt as needed, needing rx refilled. Currently Mood, overall improved, taking Prozac 20 mg a day, feels that she is stable at this time and doesn't need a dose change Migraine headaches, taking maxalt as needed, does feel that her migraines have been more intense since being on Prozac but haven't been any more frequent in time. Does still need to nap when has a migraine headache. Insomnia, situational, taking Trazodone medication and feels some dizziness/LH when taking this medication and some hangover effect symptoms. Considering being a surrogate for PAST MEDICAL HISTORY Diagnosis Date anxiety Anxiety and depression 05/28/2022 History of PCOS Low HDL (under 40) 06/2013 Migraine Patellofemoral syndrome, bilateral b/l, sees PT Proteinuria as a teenager Tendonitis of shoulder, right has seen PT PAST SURGICAL HISTORY Procedure Laterality Date COLONOSCOPY 06/04/2021 normal exam, int hemorrhoids, 2 cm submucosal nodule cecum EGD 06/04/2021 esophagitis, fundic gland polyps TONSILLECTOMY PRIMARY/SECONDARY <AGE 12 Tonsillectomy TYMPANOSTOMY LOCAL/TOPICAL ANESTHESIA Age 5 or 6 years. Current Outpatient Medications Medication Sig omeprazole (PRILOSEC) 20 mg capsule Take 2 capsules by mouth once daily. FLUoxetine (PROZAC) 20 mg capsule Take 1 capsule by mouth once daily. rizatriptan (MAXALT-SUPERVISOR ROD PLACING) 10 mg disintegrating tablet Take 1 tablet by mouth as needed. May repeat in 2 hours if needed traZODone (DESYREL) 50 mg tablet Take 1 tablet by mouth daily at bedtime. Prn for insomnia baclofen vaginal suppository 10 mg (CPD) Unwrap and insert 1 Suppository vaginally daily at bedtime as directed. Surgical Lubricant Jelly gel For MRI Female Pelvis, MRI department to provide. Administer intra-vaginal Surgilube immediately prior the MRI procedure (total amount to patient toleranace). metFORMIN ER (GLUCOPHAGE XR) 500 mg 24 hr tablet TAKE 1 TABLET BY MOUTH 3 TIMES DAILY No current facility-administered medications for this visit. ALLERGIES No Known Allergies Social History Tobacco Use Smoking status: Never Smokeless tobacco: Never Vaping Use Vaping Use: Never used Substance Use Topics Alcohol use: Not Currently Comment: occasionally, not while Drug use: No ROS: See HPI PE: BP 100/60 Pulse 80 Temp (Src) 97.4 (Left Tympanic) Resp 12 Wt 168 lb (76.2kg) LMP 05/18/2022 Gen: A&OX3, NAD, non-toxic appearing HEENT: PERRLA, EOMs intact b/l, nares without drainage, pharynx without erythema, exudate, lesions, or drainage. Uvula midline. Neck: No LAD, no thyromegaly, no meningismus. CV: RRR, no murmur Lungs: CTA b/l, no wheezing Skin: No rashes, lesions, or wounds on exposed skin. No edema, normal pulses ASSESSMENT/PLAN: 1. Anxiety and depression - ICD9: 300.00, 311, ICD10: F41.9, F32.A (primary diagnosis) - continue current prozac medication, can adjust up dose if needed. 2. Situational insomnia - ICD9: 307.41, ICD10: F51.09 - okay to trial on Magnesium, okay to discontinue Trazodone if having SE to medication 3. Other migraine without status migrainosus, not intractable - ICD9: 346.80, ICD10: G43.809 - okay for prn use of Maxalt, okay to trial on Magnesium medication. 4. Fatigue, unspecified type - ICD9: 780.79, ICD10: R53.83 - recheck labs. - VITAMIN D 25 HYDROXY - VITAMIN B12 BLOOD 5. PCOS (polycystic ovarian syndrome) - ICD9: 256.4, ICD10: E28.2 - d/c extended release metformin and trial on short acting metformin for risk of IFG and insulin resistance. - METFORMIN 500 MG TABLET - COMP METABOLIC PANEL - CBC + DIFF - TSH BLD - T4 FREE/FREE THYROX - T3 FREE BLD - LIPID PANEL BASIC - HGB A1C - INSULIN ASSAY BLOOD - VITAMIN D 25 HYDROXY - VITAMIN B12 BLOOD 6. Well adult exam - ICD9: V70.0, ICD10: Z00.00 - COMP METABOLIC PANEL - CBC + DIFF - TSH BLD - T4 FREE/FREE THYROX - T3 FREE BLD - LIPID PANEL BASIC - HGB A1C - INSULIN ASSAY BLOOD - VITAMIN D 25 HYDROXY - VITAMIN B12 BLOOD Ze Pugh DO Return if no improvement. Follow up with Ze Pugh DO. To ER if develops chest pain, shortness of breath Discussed risks, benefits, alternatives, and potential side effects of medications. Patient/Guardian expressed understanding and agreed with the plan. See patient instructions. Ze Pugh DO [address] [place] [address] documented in this encounter [facility] 08-16-2022 History of Present illness Narrative Radiology Service Progress Note DATE OF SERVICE: August 16, 2022 TIME: 6:53 PM PATIENT WEIGHT: 160 LBS PATIENT IDENTITY VERIFICATION COMPLETED USING TWO (2) STANDARD IDENTIFIERS: Name and Date of confirmed by patient verbally and Name and Date of confirmed by identification band. FALL SCREENING: Has the patient had 2 falls in the last year or 1 fall with injury or currently using an Ambulatory Assistive Device (Walker, Cane, Wheelchair, Crutches, etc.)? No PATIENT GENDER DATA: Female. status: : No status: NO. ALLERGIES: Reviewed and unchanged CONTRAST ALLERGY: No EXAM: MRI - CONTRAST TYPE: GROUP II IV SITE: Ambulatory: A peripheral IV was started in the Left antecubital site with a Angio cath: 22 gauge. and A Saline lock was inserted per protocol IV SITE APPEARANCE: Clean,Dry and Intact SIGNATURE: Mariel Palacios RN PATIENT NAME: Bryce Ramirez DATE: August 16, 2022 TIME: 6:53 PM Radiology Service Progress Note PATIENT NAME: Bryce Ramirez DATE OF SERVICE: August 16, 2022 TIME: 7:34 PM PATIENT IDENTITY VERIFICATION COMPLETED USING TWO (2) IDENTIFIERS: Name and Date of confirmed by patient verbally and Name and Date of confirmed by identification band. FALL SCREENING: Has the patient had 2 falls in the last year or 1 fall with injury or currently using an Ambulatory Assistive Device (Walker, Cane, Wheelchair, Crutches, etc.)? No PATIENT GENDER DATA: Female. status: : No status: NO. PATIENT RELEVANT IMPLANT DATA REVIEWED: Yes RADIOLOGY DEPARTMENT: MR; Exam(s) Completed: Body: Female Pelvis PERIPHERAL IV DATA: Site assessment: Clean,Dry and Intact, Site disposition Discontinued SIGNED BY: RT Alphonso(R) August 16, 2022 7:34 PM documented in this encounter [facility] 06-08-2022 Miscellaneous Notes Pt notified via [employer] that Rx has been sent into pharmacy. Gracy Jimenez Ma OK to refill as ordered Pola Barajas MD Last Rx: 12/10/21 #60 w/5. Gracy Jimenez Ma Patient has been identified by name and date of : Yes, Provider ZE PUGH Date 06/08/22 Time 0949 Patient phones for refill(s): Requested Prescriptions Pending Prescriptions Disp Refills omeprazole (PRILOSEC) 20 mg capsule 60 capsule 5 Sig: Take 2 capsules by mouth once daily. Date of last office visit in primary care: 05/28/22 Last 2 Encounter Wt Readings: Date: Wt: 05/28/2022 76.2 kg (168 lb) 05/14/2022 76.8 kg (169 lb 6.4 oz) Previous labs/tests for medication: Not applicable PATIENT STATES SHE THINKS SHE ACCIDENTALLY THREW HER REFILL AWAY. Please advise. Thank you. Kelsie Givens documented in this encounter [facility] 05-28-2022 History of Present illness Narrative CC: Bryce Ramirez is a 31 year old female who presents to the office for follow up HPI: Previously at [facility] on 04/26/22 Mood, difficulty recently with feeling overwhelmed and down/depressed as well as anxious at times. Having a tendency to worry about situations that she knows she can't control such as not wanting the kids to play outside for fear that they will be hurt somehow. No SI or HI. 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 Does have support from her . There are other social situations that are stressing her out including her step son's mother and custody battles. Is going to counseling/therapy. Thinks she needs to be on medication as well PCOS, ? Concern for endometriosis per Delia Fermin. Feels that her mood does fluctuate through the month when she is ovulating and getting ready to menstruate it is worse. She was started on prozac Currently Mood, feels it is somewhat improved, less anger and anxiety,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 FLUOXETINE 10 MG TABLET Ze Pugh DO I spent 32 minutes in the visit, with more than 50% of the total [id number] time of the visit in counseling / coordination of care. To ER if develops chest pain, shortness of breath, or severe worsening of symptoms. Discussed risks, benefits, alternatives, and potential side effects of medications. Patient expressed understanding and agreed with the plan. Ze Pugh DO [address] [place] [address] documented in this encounter [facility] 03-26-2022 Miscellaneous Notes 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 for appointment with Shyanne Christie CNP, APRN on 05/14 @ 9:30. Laxmi Darden RN documented in this encounter [facility] 03-12-2022 Instructions Chaya Fermin APRN.CNM - 03/12/2022 10:43 AM EDT You have been referred to the Chronic Pelvic Pain Program. Prior to your appointment there is a questionnaire you will need to complete, please call for the appointment. documented in this encounter [facility] 03-12-2022 History of Present illness Narrative DISTANCE HEALTH VISIT This Team Access Model visit is a virtual encounter. It required patient-provider interaction for the medical decision making as documented below. LMP 03/10/22 menses flow is normal. Here today to follow up labs and ultrasound. Offers no further complaints. HISTORY REVIEWED (electronic chart updated): - medical history - medications - allergies REVIEW OF SYSTEMS: GENERAL: feeling well without fatigue, no recent change in weight All other ROS: negative PHYSICAL EXAMINATION: VIDEO EXAM: (if done, performed via video enabled technology) GENERAL: alert and appropriate, in no distress, well-hydrated, well nourished, and happy, smiling, interactive RESULT: Uterus size: 8.1 x 5.5 x 4.9 cm -Orientation: Retroverted. -Myometrium: Normal sonographic appearance. No focal myometrial abnormality. -Endometrial echo complex: Homogeneous measuring 0.83 cm, transvaginally. -Cervix: normal Right ovary: 2.9 x 2.7 x 2.0 cm. Normal sonographic appearance. There are normal follicular changes. Arterial and venous vascular flow is identified. Left ovary: 4.2 x 3.3 x 2.8 cm. Normal sonographic appearance. There are normal follicular changes with a dominant follicle measuring 3 cm which demonstrates a cumulus oophorus with ovulation.. Arterial and venous vascular flow is identified. Free fluid: None ASSESSMENT/PLAN: 1. Pelvic pain in female - ICD9: 625.9, ICD10: R10.2 (primary diagnosis) - CONSULT TO [facility] WORK[facility] PELVIC PA[facility] - Reviewed option for OCP, vaginal ring, or Mirena IUD for menses and dysmenorrhea. She declines any hormonal options at this moment. Referral to pelvic pain clinic for further work up. Pelvic US negative. 2. Dysmenorrhea - ICD9: 625.3, ICD10: N94.6 Chaya Fermin APRN.CNM I spent a total of 20 minutes on the date of the service which included preparing to see the patient, [id number] patient care, completing clinical documentation, obtaining and/or reviewing separately obtained history, performing a medically appropriate examination, and counseling and educating the patient/family/caregiver. documented in this encounter [facility] 02-28-2022 History of Present illness Narrative This note was created using ThermaSourceriter. Subjective Bryce Ramirez is a 31 year old female. HPI by patient: Bryce Ramirez is a 31 year old female presenting to the office with the complaint of right eye irritation. Yesterday she got an eye lash in the eye yesterday, states she got the lash out but feels she may have scratched the eye. Associated symptoms include light sensitivity, goopy drainage, and outside eye lid itching. Denies fevers and uri symptoms. 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 Wears contacts. Is going camping this weekend and doesn't have glasses. OTC not used. No antibiotic use in the last 60 days. ALLERGIES No Known Allergies Family History Reviewed Including Cardiac Diseases, Psychiatric Diseases, & Substance Abuse Problem: Heart Relation: Maternal Grandfather Age of Onset: 40 Comment: [place] age 40 Problem: Hypertension Relation: Mother Age of Onset: (Not Specified) Problem: Lipids Relation: Mother Age of Onset: (Not Specified) Problem: Heart Relation: Mother Age of Onset: (Not Specified) Comment: [place] at age 50 Problem: Hypertension Relation: Father Age of Onset: (Not Specified) Problem: Lipids Relation: Father Age of Onset: (Not Specified) Problem: Hypertension Relation: Maternal Grandmother Age of Onset: (Not Specified) Problem: Lipids Relation: Maternal Grandmother Age of Onset: (Not Specified) Problem: Hypertension Relation: Paternal Grandfather Age of Onset: (Not Specified) Problem: Lipids Relation: Paternal Grandfather Age of Onset: (Not Specified) Problem: No Known Problems Relation: Paternal Grandmother Age of Onset: (Not Specified) Problem: No Known Problems Relation: Brother Age of Onset: (Not Specified) Problem: No Known Problems Relation: Daughter Age of Onset: (Not Specified) Social History Tobacco Use Smoking status: Never Smokeless tobacco: Never Vaping Use Vaping Use: Never used Alcohol use: Not Currently Comment: occasionally, not while Drug use: No Active Ambulatory Problems Chondromalacia of patella Date Noted: 12/17/2010 PCOS (polycystic ovarian syndrome) Date Noted: 09/10/2017 History of depression Date Noted: 09/18/2017 Exposure to genital herpes Date Noted: 09/18/2017 Left knee pain Date Noted: 03/04/2018 Pelvic floor instability Date Noted: 03/04/2018 Acute bilateral low back pain without sciatica Date Noted: 11/29/2019 Resolved Ambulatory Problems Pain in joint, lower leg Date Noted: 03/27/2006 Sprain and strain of unspecified site of knee and leg Date Noted: 02/04/2007 Diplopia Date Noted: 07/13/2012 Patient requested diagnostic testing Date Noted: 09/18/2017 Encounter for supervision of normal first in first trimester Date Noted: 11/04/2017 Short interval between pregnancies affecting , antepartum Date Noted: 02/11/2019 Past Medical History: No date: anxiety No date: History of PCOS 06/2013: Low HDL (under 40) No date: Migraine No date: Patellofemoral syndrome, bilateral No date: Proteinuria No date: Tendonitis of shoulder, right Review of Systems Constitutional: Negative. HENT: Negative. Eyes: Positive for photophobia, discharge, redness and itching. Negative for visual disturbance. Respiratory: Negative. Cardiovascular: Negative. Gastrointestinal: Negative. Endocrine: Negative. Genitourinary: Negative. Musculoskeletal: Negative. Skin: Negative. Neurological: Negative. Hematological: Negative. Objective LMP 06/01/2021 Physical Exam Vitals reviewed. Constitutional: General: She is not in acute distress. Appearance: She is not ill-appearing, toxic-appearing or diaphoretic. Eyes: Extraocular Movements: Extraocular movements intact. Conjunctiva/sclera: Right eye: Right conjunctiva is injected (dye uptake noted, tolerated fluorescein staining). Left eye: Left conjunctiva is not injected. Pupils: Pupils are equal, round, and reactive to light. Cardiovascular: Rate and Rhythm: Normal rate and regular rhythm. Pulmonary: Effort: Pulmonary effort is normal. Psychiatric: Behavior: Behavior is cooperative. Assessment and Plan (H18.891) Corneal irritation of right eye (primary encounter diagnosis) Plan: tetracaine (PF) 0.5 % 1 Drop (OPTICAINE), fluorescein 1 mg 1 Strip (FLUORETS), ofloxacin (OCUFLOX) 0.3 % ophthalmic solution Tolerated Fluorescein staining, had some dye uptake. Is a contact user, will have patient start ofloxacin drops 4 times/day for 7 days. -Wash hands before and after touching the eye. Do not rub the eye. -Warm compress to remove any drainage if there is any. Cool compress for comfort or itchiness. -If you wear contacts dispose of old contacts and open a new pair after treatment is complete; typically after 7 days. -If no improvement in 48 hours please follow up with Ophthalmology -Warning symptoms: sudden loss of vision, sharp eye pain, sudden blurry vision, dizziness. -Go to the ER with warning symptoms. The patient will pursue further outpatient evaluation with the primary care physician or another Urgent Care/Express Care as outlined in the after visit summary. The patient is agreeable to this plan of care and follow-up instructions have been explained in detail. The patient has received these instructions in written format and have expressed an understanding of the after visit summary. Medical Decision Making: Level: 3 - Low I spent a total of 20 minutes on the date of the service which included preparing to see the patient, [id number] patient care, completing clinical documentation, obtaining and/or reviewing separately obtained history, performing a medically appropriate examination, counseling and educating the patient/family/caregiver, and ordering medications, tests, or procedures. documented in this encounter [facility] 02-28-2022 Instructions Benita Wynn APRN.CNP - 02/28/2022 9:06 AM EDT (H18.891) Corneal irritation of right eye (primary encounter diagnosis) Plan: tetracaine (PF) 0.5 % 1 Drop (OPTICAINE), fluorescein 1 mg 1 Strip (FLUORETS), ofloxacin (OCUFLOX) 0.3 % ophthalmic solution Tolerated Fluorescein staining, had some dye uptake. Is a contact user, will have patient start ofloxacin drops 4 times/day for 7 days. -Wash hands before and after touching the eye. Do not rub the eye. -Warm compress to remove any drainage if there is any. Cool compress for comfort or itchiness. -If you wear contacts dispose of old contacts and open a new pair after treatment is complete; typically after 7 days. -If no improvement in 48 hours please follow up with Ophthalmology -Warning symptoms: sudden loss of vision, sharp eye pain, sudden blurry vision, dizziness. -Go to the ER with warning symptoms. documented in this encounter [facility] 11-03-2021 Miscellaneous Notes Patient has been identified by name and date of : Yes Pharmacy phones for refill(s): Pending Prescriptions Disp Refills METFORMIN ER 500 MG TABLET,EXTENDED RELEASE 24 HR 90 tablet 6 Sig: TAKE 1 TABLET BY MOUTH 3 TIMES DAILY ASHLY: Yes Date of last office visit in primary care: 03/19/21 Last 2 Encounter Wt Readings: Date: Wt: 06/04/2021 71.7 kg (158 lb) 04/23/2021 73 kg (161 lb) Previous labs/tests for medication: Diabetes: Hemoglobin A1C (%) Date Value 07/12/2013 5.3 Please advise. Thank you. Bindu Taylor LPN documented in this encounter [facility] 10-05-2021 Miscellaneous Notes Patient phones requesting refills as follows: Pending Prescriptions Disp Refills RIZATRIPTAN 10 MG DISINTEGRATING TABLET 9 tablet 3 Sig: Take 1 tablet by mouth as needed. May repeat in 2 hours if needed ASHLY: No GISELA 03/19/21 NOV no upcoming appt Please review and advise. Alfredo Andrew LPN documented in this encounter [facility] 10-03-2021 Miscellaneous Notes Pt was seen by Melia CASILLAS 03/19/21. Mckenna Cedeno LPN I haven't seen this patient since 2013 Ze Pugh DO Pt reports pain with urination & urinary frequency. Has had UTIs in that past & thinks this is a uti. Pt going to UC today. Mckenna Cedeno LPN documented in this encounter [facility] 09-13-2021 History of Present illness Narrative This is an Express Care eVisit note for Bryce Gross/Questionnaire reviewed The chief complaint for the visit - Patient presents with: Cough Recommendations/Treatment plan - referral <5 mins to complete Roxana De Jesus APRN.CIVIL ENGINEERING PROJECT MANAGER documented in this encounter [facility] 08-31-2021 History of Present illness Narrative 1. Myopia, bilateral 2. Dry eye syndrome of bilateral lacrimal glands Dispensed new trials Patient to let me know if she prefers Clariti 1-day or Acuvue moist 1 day. Perla Bailey, OD August 31, 2021 2:58 PM documented in this encounter [facility] 08-31-2021 History of Present illness Narrative This is an Express Care eVisit note for Bryce Gross/Questionnaire reviewed The chief complaint for the visit - Patient presents with: Sinus Problem Recommendations/Treatment plan - Symptoms are most consistent with viral upper respiratory infection that given duration and ongoing symptoms potentially developed a secondary ABRS. As a result, feel reasonable to try antibiotics and recommended continued symptomatic treatments also. Rx as below plus self care. See My Chart Message to patient. Recommendation for follow up - PRN The following approved medication requests have been transmitted electronically. Signed Prescriptions Disp Refills amoxicillin-clavulanic acid (AUGMENTIN) 875-125 mg per tablet 10 tablet 0 Sig: Take 1 tablet by mouth twice daily for 5 days. Time spend was 5 minutes. Brayan Rossi APRN.CIVIL ENGINEERING PROJECT MANAGER documented in this encounter [facility] 08-17-2021 Miscellaneous Notes Pharmacy calls in requesting the following refill(s): Pending Prescriptions Disp Refills OMEPRAZOLE 20 MG CAPSULE,DELAYED RELEASE 60 capsule 2 Sig: TAKE 2 CAPSULES BY MOUTH ONCE DAILY ASHLY: Yes documented in this encounter [facility] 02-11-2019 History of Past i llness Narrative Problem Noted Date Resolved Date Short interval between pregn ancies affecting , antepartum 02/11/2019 10/25/2019 Overview: 02/11/2019Patient delivered her previous child 05/10/2018. TKRN Encounter for supervision of normal first in first trimester 11/04/2017 06/22/2018 Patient requested diagnostic testing 09/18/2017 06/22/2018 Overview: 02/11/2019. Patient desires nuchal ultrasound. TKRN Diplopia 07/13/2012 04/27/2019 Sprain and strain of unspecified site of knee an d leg 02/04/2007 04/27/2019 Pain in joint, lower leg 03/27/2006 019 documented as of this encounter (statuses as of 08/22/2021) [facility] History of Past illness Narrative* Problem Noted Date Resolved Date Short interval between pregn ancies affecting , antepartum 02/11/2019 10/25/2019 Overview: 02/11/2019Patient delivered her previous child 05/10/2018. TKRN Encounter for supervision of normal first in first trimester 11/04/2017 06/22/2018 Patient requested diagnostic testing 09/18/2017 06/22/2018 Overview: 02/11/2019. Patient desires nuchal ultrasound. TKRN Diplopia 07/13/2012 04/27/2019 Sprain and strain of unspecified site of knee an d leg 02/04/2007 04/27/2019 Pain in joint, lower leg 03/27/2006 019 documented as of this encounter (statuses as of 08/31/2021) [facility] History of Past illness Narrative* Problem Noted Date Resolved Date Short interval between pregn ancies affecting , antepartum 02/11/2019 10/25/2019 Overview: 02/11/2019Patient delivered her previous child 05/10/2018. TKRN Encounter for supervision of normal first in first trimester 11/04/2017 06/22/2018 Patient requested diagnostic testing 09/18/2017 06/22/2018 Overview: 02/11/2019. Patient desires nuchal ultrasound. TKRN Diplopia 07/13/2012 04/27/2019 Sprain and strain of unspecified site of knee an d leg 02/04/2007 04/27/2019 Pain in joint, lower leg 03/27/2006 019 documented as of this encounter (statuses as of 08/31/2021) [facility] History of Past illness Narrative* Problem Noted Date Resolved Date Short interval between pregn ancies affecting , antepartum 02/11/2019 10/25/2019 Overview: 02/11/2019Patient delivered her previous child 05/10/2018. TKRN Encounter for supervision of normal first in first trimester 11/04/2017 06/22/2018 Patient requested diagnostic testing 09/18/2017 06/22/2018 Overview: 02/11/2019. Patient desires nuchal ultrasound. TKRN Diplopia 07/13/2012 04/27/2019 Sprain and strain of unspecified site of knee an d leg 02/04/2007 04/27/2019 Pain in joint, lower leg 03/27/2006 019 documented as of this encounter (statuses as of 09/13/2021) [facility] History of Past illness Narrative* Problem Noted Date Resolved Date Short interval between pregn ancies affecting , antepartum 02/11/2019 10/25/2019 Overview: 02/11/2019Patient delivered her previous child 05/10/2018. TKRN Encounter for supervision of normal first in first trimester 11/04/2017 06/22/2018 Patient requested diagnostic testing 09/18/2017 06/22/2018 Overview: 02/11/2019. Patient desires nuchal ultrasound. TKRN Diplopia 07/13/2012 04/27/2019 Sprain and strain of unspecified site of knee an d leg 02/04/2007 04/27/2019 Pain in joint, lower leg 03/27/2006 019 documented as of this encounter (statuses as of 10/03/2021) [facility] History of Past illness Narrative* Problem Noted Date Resolved Date Short interval between pregn ancies affecting , antepartum 02/11/2019 10/25/2019 Overview: 02/11/2019Patient delivered her previous child 05/10/2018. TKRN Encounter for supervision of normal first in first trimester 11/04/2017 06/22/2018 Patient requested diagnostic testing 09/18/2017 06/22/2018 Overview: 02/11/2019. Patient desires nuchal ultrasound. TKRN Diplopia 07/13/2012 04/27/2019 Sprain and strain of unspecified site of knee an d leg 02/04/2007 04/27/2019 Pain in joint, lower leg 03/27/2006 019 documented as of this encounter (statuses as of 10/05/2021) [facility] History of Past illness Narrative* Problem Noted Date Resolved Date Short interval between pregn ancies affecting , antepartum 02/11/2019 10/25/2019 Overview: 02/11/2019Patient delivered her previous child 05/10/2018. TKRN Encounter for supervision of normal first in first trimester 11/04/2017 06/22/2018 Patient requested diagnostic testing 09/18/2017 06/22/2018 Overview: 02/11/2019. Patient desires nuchal ultrasound. TKRN Diplopia 07/13/2012 04/27/2019 Sprain and strain of unspecified site of knee an d leg 02/04/2007 04/27/2019 Pain in joint, lower leg 03/27/2006 019 documented as of this encounter (statuses as of 10/25/2021) [facility] History of Past illness Narrative* Problem Noted Date Resolved Date Short interval between pregn ancies affecting , antepartum 02/11/2019 10/25/2019 Overview: 02/11/2019Patient delivered her previous child 05/10/2018. TKRN Encounter for supervision of normal first in first trimester 11/04/2017 06/22/2018 Patient requested diagnostic testing 09/18/2017 06/22/2018 Overview: 02/11/2019. Patient desires nuchal ultrasound. TKRN Diplopia 07/13/2012 04/27/2019 Sprain and strain of unspecified site of knee an d leg 02/04/2007 04/27/2019 Pain in joint, lower leg 03/27/2006 019 documented as of this encounter (statuses as of 11/05/2021) [facility] History of Past illness Narrative* Problem Noted Date Resolved Date Short interval between pregn ancies affecting , antepartum 02/11/2019 10/25/2019 Overview: 02/11/2019Patient delivered her previous child 05/10/2018. TKRN Encounter for supervision of normal first in first trimester 11/04/2017 06/22/2018 Patient requested diagnostic testing 09/18/2017 06/22/2018 Overview: 02/11/2019. Patient desires nuchal ultrasound. TKRN Diplopia 07/13/2012 04/27/2019 Sprain and strain of unspecified site of knee an d leg 02/04/2007 04/27/2019 Pain in joint, lower leg 03/27/2006 019 documented as of this encounter (statuses as of 12/10/2021) [facility] History of Past illness Narrative* Problem Noted Date Resolved Date Short interval between pregn ancies affecting , antepartum 02/11/2019 10/25/2019 Overview: 02/11/2019Patient delivered her previous child 05/10/2018. TKRN Encounter for supervision of normal first in first trimester 11/04/2017 06/22/2018 Patient requested diagnostic testing 09/18/2017 06/22/2018 Overview: 02/11/2019. Patient desires nuchal ultrasound. TKRN Diplopia 07/13/2012 04/27/2019 Sprain and strain of unspecified site of knee an d leg 02/04/2007 04/27/2019 Pain in joint, lower leg 03/27/2006 019 documented as of this encounter (statuses as of 12/10/2021) [facility] History of Past illness Narrative* Problem Noted Date Resolved Date Short interval between pregn ancies affecting , antepartum 02/11/2019 10/25/2019 Overview: 02/11/2019Patient delivered her previous child 05/10/2018. TKRN Encounter for supervision of normal first in first trimester 11/04/2017 06/22/2018 Patient requested diagnostic testing 09/18/2017 06/22/2018 Overview: 02/11/2019. Patient desires nuchal ultrasound. TKRN Diplopia 07/13/2012 04/27/2019 Sprain and strain of unspecified site of knee an d leg 02/04/2007 04/27/2019 Pain in joint, lower leg 03/27/2006 019 documented as of this encounter (statuses as of 02/28/2022) [facility] History of Past illness Narrative* Problem Noted Date Resolved Date Short interval between pregn ancies affecting , antepartum 02/11/2019 10/25/2019 Overview: 02/11/2019Patient delivered her previous child 05/10/2018. TKRN Encounter for supervision of normal first in first trimester 11/04/2017 06/22/2018 Patient requested diagnostic testing 09/18/2017 06/22/2018 Overview: 02/11/2019. Patient desires nuchal ultrasound. TKRN Diplopia 07/13/2012 04/27/2019 Sprain and strain of unspecified site of knee an d leg 02/04/2007 04/27/2019 Pain in joint, lower leg 03/27/2006 019 documented as of this encounter (statuses as of 03/13/2022) [facility]-19[facility]2019 History of Past illness Narrative* Problem Noted Date Resolved Date Short interval between pregn ancies affecting , antepartum 02/11/2019 10/25/2019 Overview: 02/11/2019Patient delivered her previous child 05/10/2018. TKRN Encounter for supervision of normal first in first trimester 11/04/2017 06/22/2018 Patient requested diagnostic testing 09/18/2017 06/22/2018 Overview: 02/11/2019. Patient desires nuchal ultrasound. TKRN Diplopia 07/13/2012 04/27/2019 Sprain and strain of unspecified site of knee an d leg 02/04/2007 04/27/2019 Pain in joint, lower leg 03/27/2006 019 documented as of this encounter (statuses as of 03/26/2022) [facility] History of Past illness Narrative* Problem Noted Date Resolved Date Short interval between pregn ancies affecting , antepartum 02/11/2019 10/25/2019 Overview: 02/11/2019Patient delivered her previous child 05/10/2018. TKRN Encounter for supervision of normal first in first trimester 11/04/2017 06/22/2018 Patient requested diagnostic testing 09/18/2017 06/22/2018 Overview: 02/11/2019. Patient desires nuchal ultrasound. TKRN Diplopia 07/13/2012 04/27/2019 Sprain and strain of unspecified site of knee an d leg 02/04/2007 04/27/2019 Pain in joint, lower leg 03/27/2006 019 documented as of this encounter (statuses as of 04/29/2022) [facility] History of Past illness Narrative* Problem Noted Date Resolved Date Short interval between pregn ancies affecting , antepartum 02/11/2019 10/25/2019 Overview: 02/11/2019Patient delivered her previous child 05/10/2018. TKRN Encounter for supervision of normal first in first trimester 11/04/2017 06/22/2018 Patient requested diagnostic testing 09/18/2017 06/22/2018 Overview: 02/11/2019. Patient desires nuchal ultrasound. TKRN Diplopia 07/13/2012 04/27/2019 Sprain and strain of unspecified site of knee an d leg 02/04/2007 04/27/2019 Pain in joint, lower leg 03/27/2006 019 documented as of this encounter (statuses as of 05/14/2022) [facility] History of Past illness Narrative* Problem Noted Date Resolved Date Short interval between pregn ancies affecting , antepartum 02/11/2019 10/25/2019 Overview: 02/11/2019Patient delivered her previous child 05/10/2018. TKRN Encounter for supervision of normal first in first trimester 11/04/2017 06/22/2018 Patient requested diagnostic testing 09/18/2017 06/22/2018 Overview: 02/11/2019. Patient desires nuchal ultrasound. TKRN Diplopia 07/13/2012 04/27/2019 Sprain and strain of unspecified site of knee an d leg 02/04/2007 04/27/2019 Pain in joint, lower leg 03/27/2006 019 documented as of this encounter (statuses as of 05/30/2022) [facility] History of Past illness Narrative* Problem Noted Date Resolved Date Short interval between pregn ancies affecting , antepartum 02/11/2019 10/25/2019 Overview: 02/11/2019Patient delivered her previous child 05/10/2018. TKRN Encounter for supervision of normal first in first trimester 11/04/2017 06/22/2018 Patient requested diagnostic testing 09/18/2017 06/22/2018 Overview: 02/11/2019. Patient desires nuchal ultrasound. TKRN Diplopia 07/13/2012 04/27/2019 Sprain and strain of unspecified site of knee an d leg 02/04/2007 04/27/2019 Pain in joint, lower leg 03/27/2006 019 documented as of this encounter (statuses as of 06/08/2022) [facility] History of Past illness Narrative* Problem Noted Date Resolved Date Short interval between pregn ancies affecting , antepartum 02/11/2019 10/25/2019 Overview: 02/11/2019Patient delivered her previous child 05/10/2018. TKRN Encounter for supervision of normal first in first trimester 11/04/2017 06/22/2018 Patient requested diagnostic testing 09/18/2017 06/22/2018 Overview: 02/11/2019. Patient desires nuchal ultrasound. TKRN Diplopia 07/13/2012 04/27/2019 Sprain and strain of unspecified site of knee an d leg 02/04/2007 04/27/2019 Pain in joint, lower leg 03/27/2006 019 documented as of this encounter (statuses as of 08/17/2022) [facility] History of Past illness Narrative* Problem Noted Date Resolved Date Short interval between pregn ancies affecting , antepartum 02/11/2019 10/25/2019 Overview: 02/11/2019Patient delivered her previous child 05/10/2018. TKRN Encounter for supervision of normal first in first trimester 11/04/2017 06/22/2018 Patient requested diagnostic testing 09/18/2017 06/22/2018 Overview: 02/11/2019. Patient desires nuchal ultrasound. TKRN Diplopia 07/13/2012 04/27/2019 Sprain and strain of unspecified site of knee an d leg 02/04/2007 04/27/2019 Pain in joint, lower leg 03/27/2006 019 documented as of this encounter (statuses as of 09/30/2022) [facility] History of Past illness Narrative* Problem Noted Date Resolved Date Short interval between pregn ancies affecting , antepartum 02/11/2019 10/25/2019 Overview: 02/11/2019Patient delivered her previous child 05/10/2018. TKRN Encounter for supervision of normal first in first trimester 11/04/2017 06/22/2018 Patient requested diagnostic testing 09/18/2017 06/22/2018 Overview: 02/11/2019. Patient desires nuchal ultrasound. TKRN Diplopia 07/13/2012 04/27/2019 Sprain and strain of unspecified site of knee an d leg 02/04/2007 04/27/2019 Pain in joint, lower leg 03/27/2006 019 documented as of this encounter (statuses as of 10/03/2022) [facility] History of Past illness Narrative* Problem Noted Date Resolved Date Short interval between pregn ancies affecting , antepartum 02/11/2019 10/25/2019 Overview: 02/11/2019Patient delivered her previous child 05/10/2018. TKRN Encounter for supervision of normal first in first trimester 11/04/2017 06/22/2018 Patient requested diagnostic testing 09/18/2017 06/22/2018 Overview: 02/11/2019. Patient desires nuchal ultrasound. TKRN Diplopia 07/13/2012 04/27/2019 Sprain and strain of unspecified site of knee an d leg 02/04/2007 04/27/2019 Pain in joint, lower leg 03/27/2006 019 documented as of this encounter (statuses as of 10/30/2022) [facility] History of Past illness Narrative* Problem Noted Date Diagnosed Date Resolved Date Short interval between pregn ancies affecting , antepartum 02/11/2019 10/25/2019 Overview: 02/11/2019Patient delivered her previous child 05/10/2018. TKRN Encounter for supervision of normal first in first trimester 11/04/2017 06/22/2018 Patient requested diagnostic testing 09/18/2017 06/22/2018 Overview: 02/11/2019. Patient desires nuchal ultrasound. TKRN Diplopia 07/13/2012 04/27/2019 Sprain and strain of unspeci fied site of knee and leg 02/04/2007 04/27/2019 Pain in joint, lower leg 03/27/200607/2018 documented as of this encounter (statuses as of 01/09/2023) [facility] History of Past illness Narrative* Problem Noted Date Diagnosed Date Resolved Date Short interval between pregn ancies affecting , antepartum 02/11/2019 10/25/2019 Overview: 02/11/2019Patient delivered her previous child 05/10/2018. TKRN Encounter for supervision of normal first in first trimester 11/04/2017 06/22/2018 Patient requested diagnostic testing 09/18/2017 06/22/2018 Overview: 02/11/2019. Patient desires nuchal ultrasound. TKRN Diplopia 07/13/2012 04/27/2019 Sprain and strain of unspeci fied site of knee and leg 02/04/2007 04/27/2019 Pain in joint, lower leg 03/27/200607/2018 documented as of this encounter (statuses as of 02/05/2023) [facility] History of Past illness Narrative* Problem Noted Date Diagnosed Date Resolved Date Short interval between pregn ancies affecting , antepartum 02/11/2019 10/25/2019 Overview: 02/11/2019Patient delivered her previous child 05/10/2018. TKRN Encounter for supervision of normal first in first trimester 11/04/2017 06/22/2018 Patient requested diagnostic testing 09/18/2017 06/22/2018 Overview: 02/11/2019. Patient desires nuchal ultrasound. TKRN Diplopia 07/13/2012 04/27/2019 Sprain and strain of unspeci fied site of knee and leg 02/04/2007 04/27/2019 Pain in joint, lower leg 03/27/200607/2018 documented as of this encounter (statuses as of 04/30/2023) [facility] History of Past illness Narrative* Problem Noted Date Diagnosed Date Resolved Date Short interval between pregn ancies affecting , antepartum 02/11/2019 10/25/2019 Overview: 02/11/2019Patient delivered her previous child 05/10/2018. TKRN Encounter for supervision of normal first in first trimester 11/04/2017 06/22/2018 Patient requested diagnostic testing 09/18/2017 06/22/2018 Overview: 02/11/2019. Patient desires nuchal ultrasound. TKRN Diplopia 07/13/2012 04/27/2019 Sprain and strain of unspeci fied site of knee and leg 02/04/2007 04/27/2019 Pain in joint, lower leg 03/27/200607/2018 documented as of this encounter (statuses as of 05/01/2023) [facility] Diagnosis Acute rhinosinusitis- Primary Acute sinusitis, unspecified [facility] Diagnosis Myopia, bilateral- Primary Myopia Dry eye syndrome of bilateral lacrimal glands Tear film insufficiency, unspecified [facility] Diagnosis Cough- Primary [facility] Diagnosis History of migraine Personal history of other disorders of nervous system and sense organs [facility] Diagnosis History of PCOS Personal history of other genital system and obstetric disorders [facility]* Diagnosis Corneal irritation of right eye- Primary [facility]* Diagnosis Pelvic pain in female- Primary Unspecified symptom associated with female genital organs Dysmenorrhea [facility]* Diagnosis Anxiety and depression- Primary Dysthymic disorder [facility] Diagnosis Chronic pelvic pain in female- Primary Unspecified symptom associated with female genital organs Pelvic pain in female Unspecified symptom associated with female genital organs Primary dysmenorrhea Dysmenorrhea Pelvic and perineal pain Unspecified symptom associated with female genital organs High-tone pelvic floor dysfunction Other specified disorders of female genital organs Deep dyspareunia Stress incontinence, female Female stress incontinence [facility] Diagnosis Anxiety and depression- Primary Dysthymic disorder Situational insomnia Transient disorder of initiating or maintaining sleep Other migraine without status migrainosus, not intractable [facility] Diagnosis Primary dysmenorrhea Dysmenorrhea Pelvic and perineal pain Unspecified symptom associated with female genital organs Deep dyspareunia [facility] Diagnosis Anxiety and depression- Primary Dysthymic disorder Situational insomnia Transient disorder of initiating or maintaining sleep Other migraine without status migrainosus, not intractable Fatigue, unspecified type PCOS (polycystic ovarian syndrome) Polycystic ovaries Well adult exam Routine general medical examination at a health care facility [facility]* Diagnosis Anxiety and depression Dysthymic disorder [facility] Diagnosis Wellness examination- Primary Anxiety and depression Dysthymic disorder PCOS (polycystic ovarian syndrome) Polycystic ovaries Other migraine without status migrainosus, not intractable Situational insomnia Transient disorder of initiating or maintaining sleep Vitamin D deficiency Unspecified vitamin D deficiency Hyperlipidemia LDL goal <100 Other and unspecified hyperlipidemia Screening-pulmonary TB Screening examination for pulmonary tuberculosis documented [facility] this encounter [facility] Diagnosis Treatment not available- Primary Procedure not carried out for other reasons [facility] Diagnosis Procedure not carried out- Primary Procedure not carried out for other reasons [facility] Diagnosis Myopia, bilateral- Primary Myopia Regular astigmatism of both eyes Regular astigmatism Dry eye syndrome of bilateral lacrimal glands Tear film insufficiency, unspecified [facility]* Diagnosis Encounter for screening for malformation using ultrasound- Primary 13 weeks gestation of state, incidental [facility] this [facility] Diagnosis Supervision of other high risk , antepartum- Primary 13 weeks gestation of state, incidental Anxiety and depression Dysthymic disorder resulting from in vitro fertilization in first trimester [place] state, incidental History of PCOS Personal history of other genital system and obstetric disorders documented [facility] this encounter [facility] Diagnosis Supervision of other high risk pregnancies, second trimester- Primary Vaginal discharge Leukorrhea, not specified as infective [place] state, incidental resulting from in vitro fertilization in first trimester Exposure to genital herpes Contact with or exposure to other viral diseases 12 weeks gestation of state, incidental Encounter for screening for malformation using ultrasound- Primary 13 weeks gestation of state, incidental [facility] Diagnosis Supervision of other high risk pregnancies, second trimester- Primary 16 weeks gestation of state, incidental [place] state, incidental Anxiety and depression Dysthymic disorder History of PCOS Personal history of other genital system and obstetric disorders Exposure to genital herpes Contact with or exposure to other viral diseases resulting from in vitro fertilization in first trimester Headaches [facility]* Diagnosis Migraine without aura and without status migrainosus, not intractable- Primary Migraine without aura, without mention of intractable migraine without mention of status migrainosus [facility]* Diagnosis Encounter for anatomic survey (HCC)- Primary Encounter for anatomic survey 20 weeks gestation of (HCC) state, incidental resulting from in vitro fertilization in second trimester ([facility]) [facility] Diagnosis Supervision of other high risk pregnancies, second trimester (HCC)- Primary Anxiety and depression Dysthymic disorder [place] (HCC) state, incidental 20 weeks gestation of ([facility]) state, incidental 12 weeks gestation of ([facility]) state, incidental [facility]* Diagnosis Supervision of high risk in third trimester ([facility])- Primary Unspecified high-risk Obesity affecting in third trimester, unspecified obesity type ([facility]) documented in this encounter [facility]* Diagnosis [place] (HCC)- Primary state, incidental Maternal care for other (suspected) abnormality and damage, cardiac anomalies, not applicable or unspecified ([facility]) documented in this encounter [facility]* Diagnosis Supervision of other high risk pregnancies, second trimester (HCC)- Primary [place] (HCC) state, incidental Anxiety and depression Dysthymic disorder 24 weeks gestation of ([facility]) state, incidental Screening for diabetes mellitus [facility] Diagnosis Supervision of other high risk pregnancies, second trimester (HCC) 12 weeks gestation of ([facility]) state, incidental [facility]* Diagnosis Encounter for ultrasound to check growth ([facility])- Primary Encounter for routine screening for malformation using ultrasonics Obesity affecting in third trimester, unspecified obesity type ([facility]) 28 weeks gestation of ([facility]) state, incidental [facility]* Diagnosis Diet controlled gestational diabetes mellitus (GDM) in third trimester ([facility]) [facility] Diagnosis Supervision of high risk in third trimester (HCC)- Primary Unspecified high-risk 30 weeks gestation of ([facility]) state, incidental Diet controlled gestational diabetes mellitus (GDM) in third trimester (HCC) Anemia during in third trimester (HCC) resulting from in vitro fertilization in third trimester ([facility]) [facility] Diagnosis resulting from in vitro fertilization in third trimester ([facility])- Primary Supervision of high risk in third trimester ([facility]) Unspecified high-risk 28 weeks gestation of ([facility]) state, incidental [facility] in this encounter [facility]* Diagnosis Supervision of high risk in third trimester ([facility])- Primary Unspecified high-risk Anemia during in third trimester ([facility]) Diet controlled gestational diabetes mellitus (GDM) in third trimester ([facility]) 32 weeks gestation of ([facility]) state, incidental [facility]* Diagnosis Encounter for ultrasound to check growth ([facility])- Primary Encounter for routine screening for malformation using ultrasonics Obesity affecting in third trimester, unspecified obesity type ([facility]) 32 weeks gestation of ([facility]) state, incidental [facility] this encounter [facility]* Diagnosis resulting from in vitro fertilization in first trimester ([facility])- Primary [facility]* Diagnosis Supervision of high risk in third trimester ([facility])- Primary Unspecified high-risk 34 weeks gestation of ([facility]) state, incidental Abnormal glucose in , antepartum ([facility]) Abnormal maternal glucose tolerance, antepartum Anemia during in third trimester ([facility]) Rubella non-immune status, antepartum ([facility]) Other specified complication, antepartum PCOS (polycystic ovarian syndrome) Polycystic ovaries [place] ([facility]) state, incidental resulting from in vitro fertilization in first trimester ([facility]) [facility]* Diagnosis Anemia during in third trimester ([facility])- Primary Abnormal glucose in , antepartum ([facility]) Abnormal maternal glucose tolerance, antepartum [facility]* Diagnosis Diet controlled gestational diabetes mellitus (GDM) in third trimester ([facility])- Primary [facility]* Diagnosis resulting from in vitro fertilization in first trimester ([facility])- Primary Obesity affecting in third trimester, unspecified obesity type ([facility]) Diet controlled gestational diabetes mellitus (GDM) in third trimester ([facility]) [facility]* Diagnosis Supervision of high risk in third trimester (HCC)- Primary Unspecified high-risk 37 weeks gestation of (HCC) state, incidental [place] (HCC) state, incidental Anemia during in third trimester (HCC) Diet controlled gestational diabetes mellitus (GDM) in third trimester (HCC) Anxiety and depression Dysthymic disorder History of PCOS Personal history of other genital system and obstetric disorders Exposure to genital herpes Contact with or exposure to other viral diseases resulting from in vitro fertilization in first trimester ([facility]) [facility] Diagnosis 38 weeks gestation of (HCC)- Primary state, incidental Group beta Strep positive Supervision of high risk in third trimester (HCC) Unspecified high-risk [place] (HCC) state, incidental Diet controlled gestational diabetes mellitus (GDM) in third trimester ([facility]) documented in this encounter [facility])* Diagnostic Procedure Only (Routine) - Closed Specialty Diagnoses / Procedures Referred By Kevan ocasio Referred To Contact MR IMAGING Diagnoses Primary dysmenorrhea Pelvic and perineal pain Deep dyspareunia Procedures MRI FEMALE PELVIS WO/W IVCON MRI PELVIS W/O & W/CONTRAST MATERIAL Shyanne Christie APRN.CNP [id number] [place] [address] Mr Imaging Referral ID Status Reason Start Date Expiration Date V isits Requested Visits Authorized [id number] Closed Auto-Generate d Referral 07/28/2022 08/27/2022 1 1 [facility] Medications Administered Section Inactive Administered Medications - up to 3 most recent administrations Medication Order MAR Action Action Date Dose Rate Site fluorescein 1 mg 1 Strip (FLUORETS) 1 Strip, RIGHT EYE, ONCE, 1 dose, On Mary 02/28/22 at 0930, Moisten strip with sterile water. Place moistened strip at the formix into the lower cue-de-sac close to the punctus. Patient should close lid tightly over strip until desired amount of staining is obtained. Patient should blink several times after application. FOR THE EYE Given 02/28/2022 9:21 AM EDT 1 Strip tetracaine (PF) 0.5 % 1 Drop (OPTICAINE) 1 Drop, RIGHT EYE, ONCE, 1 dose, On Mary 02/28/22 at 0930, for the eye Given 02/28/2022 9:24 AM EDT 1 Drop Reason for Referral Specialty Diagnoses / Procedures Referred By Arslanac t Referred To Contact Diagnoses Pelvic pain in female Procedures CONSULT TO JEWELRY BENCH WORKER PELVIC PAIN OFFICE/OUTPATIENT [facility] MDM 60-74 MINUTES Chaya Fermin APRN.CNM [address] [place] [address] Referral ID Status Reason Start Date Expiration Date Visits Requested Visits Authorized [id number] Authorized PCP Requested Referral Auto-Generate d Referral 2 03/12/2023 1 1 Specialty Diagnoses / Procedures Referred By Kevan t Referred To Contact [facility] Diagnoses Primary dysmenorrhea High-tone pelvic floor dysfunction Deep dyspareunia Chronic pelvic pain in female Stress incontinence, female Procedures CONSULT TO PHYSICAL THERAPY PHYSICAL THERAPY EVALUATION HIGH COMPLEX 45 MINS Shyanne Christie, TAB.CIVIL ENGINEERING PROJECT MANAGER [address] [place] [address] [facility] [address] [place] [address] Referral ID Status Reason Start Date Expiration Date Visits Requested Visits Authorized [id number] Pending Review Auto-Generat ed Referral 2 05/14/2023 1 1 Specialty Diagnoses / Procedures Referred By Kevan ocasio Referred To Contact MR IMAGING Diagnoses Primary dysmenorrhea Pelvic and perineal pain Deep dyspareunia Procedures MRI FEMALE PELVIS WO/W IVCON MRI PELVIS W/O & W/CONTRAST MATERIAL Shyanne Christie, GENERAL MATCHER.CIVIL ENGINEERING PROJECT MANAGER [address] [place] [address] Mr Imaging Referral ID Status Reason Start Date Expiration Date Visits Requested Visits Authorized [id number] Pending Review Auto-Generat ed Referral 2 06/13/2023 1 1 Summary Purpose Family History No Family History Records FoundNo Family History Records FoundNo Family History Records Found Advance Directives No Advanced Directives Records FoundNo Advanced Directives Records FoundNo Advanced Directives Records Found Additional Source Comments Source Comments (unrecognize d section and content) In the event this informatio n is protected by the Federal Confidentiality of Alcohol and Drug Abuse Patient Records regulations: The Federal rules restrict any use of the information to criminally investigate or prosecute any alcohol or drug abuse patient.[facility] the event this information is protected by the Federal Confidentiality of Alcohol and Drug Abuse Patient Records regulations: The Federal rules restrict any use of the information to criminally investigate or prosecute any alcohol or drug abuse patient.[facility] HospitalIn the event this information is protected by the Federal Confidentiality of Alcohol and Drug Abuse Patient Records regulations: The Federal rules restrict any use of the information to criminally investigate or prosecute any alcohol or drug abuse patient.[facility] HospitalIn the event this information is protected by the Federal Confidentiality of Alcohol and Drug Abuse Patient Records regulations: The Federal rules restrict any use of the information to criminally investigate or prosecute any alcohol or drug abuse patient.[facility] HospitalIn the event this information is protected by the Federal Confidentiality of Alcohol and Drug Abuse Patient Records regulations: The Federal rules restrict any use of the information to criminally investigate or prosecute any alcohol or drug abuse patient.[facility] HospitalIn the event this information is protected by the Federal Confidentiality of Alcohol and Drug Abuse Patient Records regulations: The Federal rules restrict any use of the information to criminally investigate or prosecute any alcohol or drug abuse patient.[facility] HospitalIn the event this information is protected by the Federal Confidentiality of Alcohol and Drug Abuse Patient Records regulations: The Federal rules restrict any use of the information to criminally investigate or prosecute any alcohol or drug abuse patient.[facility] HospitalIn the event this information is protected by the Federal Confidentiality of Alcohol and Drug Abuse Patient Records regulations: The Federal rules restrict any use of the information to criminally investigate or prosecute any alcohol or drug abuse patient.[facility] HospitalIn the event this information is protected by the Federal Confidentiality of Alcohol and Drug Abuse Patient Records regulations: The Federal rules restrict any use of the information to criminally investigate or prosecute any alcohol or drug abuse patient.[facility] HospitalIn the event this information is protected by the Federal Confidentiality of Alcohol and Drug Abuse Patient Records regulations: The Federal rules restrict any use of the information to criminally investigate or prosecute any alcohol or drug abuse patient.[facility] HospitalIn the event this information is protected by the Federal Confidentiality of Alcohol and Drug Abuse Patient Records regulations: The Federal rules restrict any use of the information to criminally investigate or prosecute any alcohol or drug abuse patient.[facility] HospitalIn the event this information is protected by the Federal Confidentiality of Alcohol and Drug Abuse Patient Records regulations: The Federal rules restrict any use of the information to criminally investigate or prosecute any alcohol or drug abuse patient.[facility] HospitalIn the event this information is protected by the Federal Confidentiality of Alcohol and Drug Abuse Patient Records regulations: The Federal rules restrict any use of the information to criminally investigate or prosecute any alcohol or drug abuse patient.[facility] HospitalIn the event this information is protected by the Federal Confidentiality of Alcohol and Drug Abuse Patient Records regulations: The Federal rules restrict any use of the information to criminally investigate or prosecute any alcohol or drug abuse patient.[facility] HospitalIn the event this information is protected by the Federal Confidentiality of Alcohol and Drug Abuse Patient Records regulations: The Federal rules restrict any use of the information to criminally investigate or prosecute any alcohol or drug abuse patient.[facility] HospitalIn the event this information is protected by the Federal Confidentiality of Alcohol and Drug Abuse Patient Records regulations: The Federal rules restrict any use of the information to criminally investigate or prosecute any alcohol or drug abuse patient.[facility] HospitalIn the event this information is protected by the Federal Confidentiality of Alcohol and Drug Abuse Patient Records regulations: The Federal rules restrict any use of the information to criminally investigate or prosecute any alcohol or drug abuse patient.[facility] HospitalIn the event this information is protected by the Federal Confidentiality of Alcohol and Drug Abuse Patient Records regulations: The Federal rules restrict any use of the information to criminally investigate or prosecute any alcohol or drug abuse patient.[facility] HospitalIn the event this information is protected by the Federal Confidentiality of Alcohol and Drug Abuse Patient Records regulations: The Federal rules restrict any use of the information to criminally investigate or prosecute any alcohol or drug abuse patient.[facility] HospitalIn the event this information is protected by the Federal Confidentiality of Alcohol and Drug Abuse Patient Records regulations: The Federal rules restrict any use of the information to criminally investigate or prosecute any alcohol or drug abuse patient.[facility] HospitalIn the event this information is protected by the Federal Confidentiality of Alcohol and Drug Abuse Patient Records regulations: The Federal rules restrict any use of the information to criminally investigate or prosecute any alcohol or drug abuse patient.[facility] HospitalIn the event this information is protected by the Federal Confidentiality of Alcohol and Drug Abuse Patient Records regulations: The Federal rules restrict any use of the information to criminally investigate or prosecute any alcohol or drug abuse patient.[facility] HospitalIn the event this information is protected by the Federal Confidentiality of Alcohol and Drug Abuse Patient Records regulations: The Federal rules restrict any use of the information to criminally investigate or prosecute any alcohol or drug abuse patient.[facility] HospitalIn the event this information is protected by the Federal Confidentiality of Alcohol and Drug Abuse Patient Records regulations: The Federal rules restrict any use of the information to criminally investigate or prosecute any alcohol or drug abuse patient.[facility] HospitalIn the event this information is protected by the Federal Confidentiality of Alcohol and Drug Abuse Patient Records regulations: The Federal rules restrict any use of the information to criminally investigate or prosecute any alcohol or drug abuse patient.[facility] HospitalIn the event this information is protected by the Federal Confidentiality of Alcohol and Drug Abuse Patient Records regulations: The Federal rules restrict any use of the information to criminally investigate or prosecute any alcohol or drug abuse patient.[facility] HospitalIn the event this information is protected by the Federal Confidentiality of Alcohol and Drug Abuse Patient Records regulations: The Federal rules restrict any use of the information to criminally investigate or prosecute any alcohol or drug abuse patient.[facility] HospitalIn the event this information is protected by the Federal Confidentiality of Alcohol and Drug Abuse Patient Records regulations: The Federal rules restrict any use of the information to criminally investigate or prosecute any alcohol or drug abuse patient.[facility] HospitalIn the event this information is protected by the Federal Confidentiality of Alcohol and Drug Abuse Patient Records regulations: The Federal rules restrict any use of the information to criminally investigate or prosecute any alcohol or drug abuse patient.[facility] HospitalIn the event this information is protected by the Federal Confidentiality of Alcohol and Drug Abuse Patient Records regulations: The Federal rules restrict any use of the information to criminally investigate or prosecute any alcohol or drug abuse patient.[facility] HospitalIn the event this information is protected by the Federal Confidentiality of Alcohol and Drug Abuse Patient Records regulations: The Federal rules restrict any use of the information to criminally investigate or prosecute any alcohol or drug abuse patient.[facility] HospitalIn the event this information is protected by the Federal Confidentiality of Alcohol and Drug Abuse Patient Records regulations: The Federal rules restrict any use of the information to criminally investigate or prosecute any alcohol or drug abuse patient.[facility] HospitalIn the event this information is protected by the Federal Confidentiality of Alcohol and Drug Abuse Patient Records regulations: The Federal rules restrict any use of the information to criminally investigate or prosecute any alcohol or drug abuse patient.[facility] HospitalIn the event this information is protected by the Federal Confidentiality of Alcohol and Drug Abuse Patient Records regulations: The Federal rules restrict any use of the information to criminally investigate or prosecute any alcohol or drug abuse patient.[facility] HospitalIn the event this information is protected by the Federal Confidentiality of Alcohol and Drug Abuse Patient Records regulations: The Federal rules restrict any use of the information to criminally investigate or prosecute any alcohol or drug abuse patient.[facility] HospitalIn the event this information is protected by the Federal Confidentiality of Alcohol and Drug Abuse Patient Records regulations: The Federal rules restrict any use of the information to criminally investigate or prosecute any alcohol or drug abuse patient.[facility] HospitalIn the event this information is protected by the Federal Confidentiality of Alcohol and Drug Abuse Patient Records regulations: The Federal rules restrict any use of the information to criminally investigate or prosecute any alcohol or drug abuse patient.[facility] HospitalIn the event this information is protected by the Federal Confidentiality of Alcohol and Drug Abuse Patient Records regulations: The Federal rules restrict any use of the information to criminally investigate or prosecute any alcohol or drug abuse patient.[facility] HospitalIn the event this information is protected by the Federal Confidentiality of Alcohol and Drug Abuse Patient Records regulations: The Federal rules restrict any use of the information to criminally investigate or prosecute any alcohol or drug abuse patient.[facility] HospitalIn the event this information is protected by the Federal Confidentiality of Alcohol and Drug Abuse Patient Records regulations: The Federal rules restrict any use of the information to criminally investigate or prosecute any alcohol or drug abuse patient.[facility] HospitalIn the event this information is protected by the Federal Confidentiality of Alcohol and Drug Abuse Patient Records regulations: The Federal rules restrict any use of the information to criminally investigate or prosecute any alcohol or drug abuse patient.[facility] HospitalIn the event this information is protected by the Federal Confidentiality of Alcohol and Drug Abuse Patient Records regulations: The Federal rules restrict any use of the information to criminally investigate or prosecute any alcohol or drug abuse patient.[facility] HospitalIn the event this information is protected by the Federal Confidentiality of Alcohol and Drug Abuse Patient Records regulations: The Federal rules restrict any use of the information to criminally investigate or prosecute any alcohol or drug abuse patient.[facility] HospitalIn the event this information is protected by the Federal Confidentiality of Alcohol and Drug Abuse Patient Records regulations: The Federal rules restrict any use of the information to criminally investigate or prosecute any alcohol or drug abuse patient.[facility] HospitalIn the event this information is protected by the Federal Confidentiality of Alcohol and Drug Abuse Patient Records regulations: The Federal rules restrict any use of the information to criminally investigate or prosecute any alcohol or drug abuse patient.[facility] HospitalIn the event this information is protected by the Federal Confidentiality of Alcohol and Drug Abuse Patient Records regulations: The Federal rules restrict any use of the information to criminally investigate or prosecute any alcohol or drug abuse patient.[facility] HospitalIn the event this information is protected by the Federal Confidentiality of Alcohol and Drug Abuse Patient Records regulations: The Federal rules restrict any use of the information to criminally investigate or prosecute any alcohol or drug abuse patient.[facility] HospitalIn the event this information is protected by the Federal Confidentiality of Alcohol and Drug Abuse Patient Records regulations: The Federal rules restrict any use of the information to criminally investigate or prosecute any alcohol or drug abuse patient.[facility] HospitalIn the event this information is protected by the Federal Confidentiality of Alcohol and Drug Abuse Patient Records regulations: The Federal rules restrict any use of the information to criminally investigate or prosecute any alcohol or drug abuse patient.[facility] HospitalIn the event this information is protected by the Federal Confidentiality of Alcohol and Drug Abuse Patient Records regulations: The Federal rules restrict any use of the information to criminally investigate or prosecute any alcohol or drug abuse patient.[facility] HospitalIn the event this information is protected by the Federal Confidentiality of Alcohol and Drug Abuse Patient Records regulations: The Federal rules restrict any use of the information to criminally investigate or prosecute any alcohol or drug abuse patient.[facility] HospitalIn the event this information is protected by the Federal Confidentiality of Alcohol and Drug Abuse Patient Records regulations: The Federal rules restrict any use of the information to criminally investigate or prosecute any alcohol or drug abuse patient.[facility] HospitalIn the event this information is protected by the Federal Confidentiality of Alcohol and Drug Abuse Patient Records regulations: The Federal rules restrict any use of the information to criminally investigate or prosecute any alcohol or drug abuse patient.[facility] HospitalIn the event this information is protected by the Federal Confidentiality of Alcohol and Drug Abuse Patient Records regulations: The Federal rules restrict any use of the information to criminally investigate or prosecute any alcohol or drug abuse patient.[facility] HospitalIn the event this information is protected by the Federal Confidentiality of Alcohol and Drug Abuse Patient Records regulations: The Federal rules restrict any use of the information to criminally investigate or prosecute any alcohol or drug abuse patient.[facility] HospitalIn the event this information is protected by the Federal Confidentiality of Alcohol and Drug Abuse Patient Records regulations: The Federal rules restrict any use of the information to criminally investigate or prosecute any alcohol or drug abuse patient.[facility] HospitalIn the event this information is protected by the Federal Confidentiality of Alcohol and Drug Abuse Patient Records regulations: The Federal rules restrict any use of the information to criminally investigate or prosecute any alcohol or drug abuse patient.[facility] HospitalIn the event this information is protected by the Federal Confidentiality of Alcohol and Drug Abuse Patient Records regulations: The Federal rules restrict any use of the information to criminally investigate or prosecute any alcohol or drug abuse patient.[facility] HospitalIn the event this information is protected by the Federal Confidentiality of Alcohol and Drug Abuse Patient Records regulations: The Federal rules restrict any use of the information to criminally investigate or prosecute any alcohol or drug abuse patient.[facility] Reason for Visit (unrecogniz ed section and content) Reason Comments Refill Request Reason Comments Sinus Problem Reason Comments Contact Lens Follow Up Reason Comments Cough Reason Comments UTI Reason Onset Date Comments Refill Request 10/05/2021 Reason Onset Date Comments Refill Request 12/08/2021 Reason Onset Date Comments Refill Request 12/07/2021 Reason Comments Eye Problem Left eye Reason Comments Menstrual Problem Reason Comments 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 Reason Comments Depression Post Reason Comments Pelvic Pain Specialty Diagnoses / Procedures Referred By Contac t Referred To Contact Diagnoses Pelvic pain in female Procedures CONSULT TO JEWELRY BENCH WORKER PELVIC PAIN OFFICE/OUTPATIENT [facility] 60-74 MINUTES Chaya Fermin APRN.CNM [address] [place] [address] Referral ID Status Reason Start Date Expiration Date V isits Requested Visits Authorized [id number] Closed PCP Requested Referral Auto-Generated Referral 03/12/2022 03/12/2023 1 1 Reason Comments Follow Up Reason Onset Date Comments Refill Request 06/08/2022 Reason Comments Radiology MRI Specialty Diagnoses / Procedures Referred By Contac t Referred To Contact MR IMAGING Diagnoses Primary dysmenorrhea Pelvic and perineal pain Deep dyspareunia Procedures MRI FEMALE PELVIS WO/W IVCON MRI PELVIS W/O & W/CONTRAST MATERIAL Shyanne Christie APRN.CIVIL ENGINEERING PROJECT MANAGER [address] [place] [address] Mr Imaging Referral ID Status Reason Start Date Expiration Date V isits Requested Visits Authorized [id number] Closed Auto-Generate d Referral 07/28/2022 08/27/2022 1 1 Reason Comments F/U 3 Month Reason Comments Results Reason Onset Date Comments Refill Request 10/29/2022 Reason Comments Physical for school Reason Comments Ear Problem Sinus Problem Reason Comments Contact lens evaluation Dry Eye Syndrome Follow Up Reason Comments US Specialty Diagnoses / Procedures Referred By Contac t Referred To Contact [facility] Diagnoses with fetus of unknown gestational age Procedures OBSTETRIC ULTRASOUND WHI US PREG UTERUS AFTER 1ST TRIMEST GESTATION Chaya Fermin APRN.CNM [address] [place] [address] Phone: tel: fax: [facility] [address] [place] [address] Referral ID Status Reason Start Date Expiration Date V isits Requested Visits Authorized [id number] Closed Auto-Generate d Referral 07/07/2024 07/07/2025 1 1 Reason Onset Date Comments Care 07/12/2024 Reason Comments Care Reason Onset Date Comments Care 08/02/2024 Reason Comments Consult Specialty Diagnoses / Procedures Referred By Contac t Referred To Contact Diagnoses Supervision of other high risk pregnancies, second trimester Other migraine without status migrainosus, not intractable Procedures CONSULT TO HEADACHE CLINIC OFFICE/OUTPATIENT [facility] 60 MINUTES Chaya Fermin APRN.CNM [address] [place] [address] Phone: tel: fax:[phone] Referral ID Status Reason Start Date Expiration Date V isits Requested Visits Authorized [id number] Closed PCP Requested Referral 07/22/2024 07/22/2025 1 1 Reason Onset Date Comments Refill Request 07/22/2024 Specialty Diagnoses / Procedures Referred By Contac t Referred To Contact [facility] Diagnoses Supervision of other high risk pregnancies, second trimester (HCC) 12 weeks gestation of (HCC) Procedures OBSTETRIC ULTRASOUND WHI US PREG UTERUS AFTER 1ST TRIMEST GESTATION Chaya Fermin APRN.CNM [address] [place] [address] Phone: tel: fax: [address] [address] Referral ID Status Reason Start Date Expiration Date V isits Requested Visits Authorized [id number] Closed Auto-Generate d Referral 07/07/2024 07/07/2025 1 1 Reason Onset Date Comments Care 08/30/2024 Reason Comments Consult echo Reason Comments Request Outside Medical Records Reason Onset Date Comments Care 09/27/2024 Reason Onset Date Comments Refill Request 10/17/2024 Specialty Diagnoses / Procedures Referred By Contac t Referred To Contact [facility] Diagnoses Supervision of high risk in third trimester (HCC) Obesity affecting in third trimester, unspecified obesity type (HCC) Procedures OBSTETRIC ULTRASOUND WHI US PREG UTERUS AFTER 1ST TRIMEST GESTATION Chaya Fermin APRN.ELMIRA [address] [place] [address] Phone: tel: fax: [address] [phone] Referral ID Status Reason Start Date Expiration Date V isits Requested Visits Authorized [id number] Closed Auto-Generate d Referral 08/30/2024 08/30/2025 4 1 Reason Comments GDM Specialty Diagnoses / Procedures Referred By Contac t Referred To Contact Diagnoses Diet controlled gestational diabetes mellitus (GDM) in third trimester (HCC) Procedures CONSULT TO DIABETES EDUCATION DSME MEDICAL NUTRITION ASSMT&IVNTJ INDIV EACH 15 [place] MEDICAL NUTRITION ASSMT&IVNTJ INDIV EACH 15 [place] MEDICAL NUTRITION ASSMT&IVNTJ INDIV EACH 15 [place] MEDICAL NUTRITION ASSMT&IVNTJ INDIV EACH 15 [place] Chaya Fermin APRN.[place] [address] [place] [address] Phone: tel: fax:[phone] Referral ID Status Reason Start Date Expiration Date V isits Requested Visits Authorized [id number] Closed PCP Requested Referral 10/27/2024 10/27/2025 1 1 Reason Onset Date Comments Care 11/08/2024 Reason Onset Date Comments Care 10/25/2024 Reason Onset Date Comments Care 11/24/2024 Reason Onset Date Comments Care 12/06/2024 Specialty Diagnoses / Procedures Referred By Contnoble t Referred To Contact [facility] Diagnoses Diet controlled gestational diabetes mellitus (GDM) in third trimester (HCC) Procedures OBSTETRIC ULTRASOUND WHI US PREG UTERUS AFTER 1ST TRIMEST GESTATION Chaya Fermin APRN.CNSrinivas [address] [place] [address] Phone: tel: fax: [facility] [address] [place] [address] Referral ID Status Reason Start Date Expiration Date V isits Requested Visits Authorized [id number] Closed Auto-Generate d Referral 10/27/2024 10/27/2025 5 1 Reason Onset Date Comments Care 12/27/2024 Reason Onset Date Comments Care 01/03/2025 Care Teams (unrecognized sec tion and content) Family Welfare Social Work Professor Relationship Specialty Start Date End Date Ze Pugh DO [address] [place] [address] PCP - General Family Practice 07/12/13 Family Welfare Social Work Professor Relationship Specialty Start Date End Date Ze Pugh DO [address] [place] [address] PCP - General Family Practice 07/12/13 Family Welfare Social Work Professor Relationship Specialty Start Date End Date Ze Pugh DO [address] [place] [address] PCP - General Family Practice 07/12/13 Family Welfare Social Work Professor Relationship Specialty Start Date End Date Ze Pugh DO [address] [place] [address] PCP - General Family Practice 07/12/13 Family Welfare Social Work Professor Relationship Specialty Start Date End Date Ze Pugh DO [address] [place] [address] PCP - General Family Practice 07/12/13 Family Welfare Social Work Professor Relationship Specialty Start Date End Date Ze Pugh, DO [address] [place] [address] PCP - General Family Practice 07/12/13 Family Welfare Social Work Professor Relationship Specialty Start Date End Date Ze Pugh, DO [address] [place] [address] PCP - General Family Practice 07/12/13 Family Welfare Social Work Professor Relationship Specialty Start Date End Date eZ Pugh, DO [address] [place] [address] PCP - General Family Medicine 07/12/13 Family Welfare Social Work Professor Relationship Specialty Start Date End Date Ze Pugh, DO [address] [place] [address] PCP - General Family Medicine 07/12/13 Family Welfare Social Work Professor Relationship Specialty Start Date End Date Ze Pugh, DO [address] [place] [address] PCP - General Family Medicine 07/12/13 Family Welfare Social Work Professor Relationship Specialty Start Date End Date Ze Pugh, DO [address] [place] [address] PCP - General Family Medicine 07/12/13 Family Welfare Social Work Professor Relationship Specialty Start Date End Date Ze Pugh, DO [address] [place] [address] PCP - General Family Medicine 07/12/13 Family Welfare Social Work Professor Relationship Specialty Start Date End Date Ze Pugh, DO [address] [place] [address] PCP - General Family Medicine 07/12/13 Family Welfare Social Work Professor Relationship Specialty Start Date End Date Ze Pugh, DO [address] [place] [address] PCP - General Family Medicine 07/12/13 Family Welfare Social Work Professor Relationship Specialty Start Date End Date Ze Pugh, DO [address] [place] [address] PCP - General Family Medicine 07/12/13 Family Welfare Social Work Professor Relationship Specialty Start Date End Date Ze Pugh DO [address] [place] [address] PCP - General Family Medicine 07/12/13 Family Welfare Social Work Professor Relationship Specialty Start Date End Date Ze Pugh, DO [address] [place] [address] PCP - General Family Medicine 07/12/13 Family Welfare Social Work Professor Relationship Specialty Start Date End Date Ze Pugh DO [address] [place] [address] PCP - General Family Medicine 07/12/13 Family Welfare Social Work Professor Relationship Specialty Start Date End Date Ze Pugh DO [address] [place] [address] PCP - General Family Medicine 07/12/13 Family Welfare Social Work Professor Relationship Specialty Start Date End Date Ze Pugh DO [address] [place] [address] PCP - General Family Medicine 07/12/13 Family Welfare Social Work Professor Relationship Specialty Start Date End Date Ze Pugh DO [address] [place] [address] PCP - General Family Medicine 07/12/13 Family Welfare Social Work Professor Relationship Specialty Start Date End Date Ze Pugh DO [address] [place] [address] PCP - General Family Medicine 07/12/13 Family Welfare Social Work Professor Relationship Specialty Start Date End Date Ze Pugh DO [address] [place] [address] PCP - General Family Medicine 07/12/13 Radha Brown, GENERAL MATCHER.CIVIL ENGINEERING PROJECT MANAGER [address] [place] [address] Machine Greaser Family [facility] 05/02/24 [facility] GENERAL MATCHER.CIVIL ENGINEERING PROJECT MANAGER [address] [place] [address] [facility] Family Welfare Social Work Professor Relationship Specialty Start Date End Date Ze Pugh DO [address] [place] [address] PCP - General Family Medicine 07/12/13 Radha Brown, GENERAL MATCHER.CIVIL ENGINEERING PROJECT MANAGER [address] [place] [address] [facility] 05/02/24 CecilLacey, GENERAL MATCHER.CIVIL ENGINEERING PROJECT MANAGER [address] [place] [address] [facility] 05/02/24 Family Welfare Social Work Professor Relationship Specialty Start Date End Date Ze Pugh DO [address] [place] [address] PCP - General Family Medicine 07/12/13 Radha Brown, GENERAL MATCHER.CIVIL ENGINEERING PROJECT MANAGER [address] [place] [address] Machine Greaser Family [facility] 05/02/24 CecilLacey, GENERAL MATCHER.CIVIL ENGINEERING PROJECT MANAGER [address] [place] [address] Machine Greaser [facility] 05/02/24 Family Welfare Social Work Professor Relationship Specialty Start Date End Date Ze Pugh DO [address] [place] [address] PCP - General Family Medicine 07/12/13 Radha Brown, GENERAL MATCHER.CIVIL ENGINEERING PROJECT MANAGER [address] [place] [address] Machine Greaser Family [facility] 05/02/24 CecilLacey, GENERAL MATCHER.CIVIL ENGINEERING PROJECT MANAGER [address] [place] [address] [facility] 05/02/24 Family Welfare Social Work Professor Relationship Specialty Start Date End Date Ze Pugh DO [address] [place] [address] PCP - General Family Medicine 07/12/13 Radha Brown, GENERAL MATCHER.CIVIL ENGINEERING PROJECT MANAGER [address] [place] [address] [facility] 05/02/24 CecilLacey, GENERAL MATCHER.CIVIL ENGINEERING PROJECT MANAGER [address] [place] [address] [facility] 05/02/24 Family Welfare Social Work Professor Relationship Specialty Start Date End Date Ze Pugh DO [address] [place] [address] PCP - General Family Medicine 07/12/13 Radha Brown, GENERAL MATCHER.CIVIL ENGINEERING PROJECT MANAGER [address] [place] [address] Machine Gre[facility] 05/02/24 Lacey Jacob, GENERAL MATCHER.CIVIL ENGINEERING PROJECT MANAGER [address] [place] [address] Machine Greaser [facility] 05/02/24 Family Welfare Social Work Professor Relationship Specialty Start Date End Date Ze Pugh DO [address] [place] [address] PCP - General Family Medicine 07/12/13 Lacey Jacob, GENERAL MATCHER.CIVIL ENGINEERING PROJECT MANAGER [address] [place] [address] [facility] 05/02/24 Family Welfare Social Work Professor Relationship Specialty Start Date End Date Ze Pugh DO [address] [facility] [address] PCP - General Family Medicine 07/12/13 Lacey Jacob, GENERAL MATCHER.CIVIL ENGINEERING PROJECT MANAGER [address] [place] [address] [facility] 05/02/24 Family Welfare Social Work Professor Relationship Specialty Start Date End Date Ze Pugh DO [address] [place] [address] PCP - General Family Medicine 07/12/13 Radha Brown, GENERAL MATCHER.CIVIL ENGINEERING PROJECT MANAGER [address] [place] [address] Machine Gre[facility] 05/02/24 08/13/24 Lacey Jacob, GENERAL MATCHER.CIVIL ENGINEERING PROJECT MANAGER [address] [facility] [address] Machine Greaser Family [facility] 05/02/24 Family Welfare Social Work Professor Relationship Specialty Start Date End Date Ze Pugh DO [address] [place] [address] PCP - General Family Medicine 07/12/13 Lacey Jacob, GENERAL MATCHER.CIVIL ENGINEERING PROJECT MANAGER [address] [facility] [place] [address] [facility] 05/02/24 Family Welfare Social Work Professor Relationship Specialty Start Date End Date Ze Pugh DO [address] [facility] [place] [address] PCP - General Family Medicine 07/12/13 Lacey Jacob, GENERAL MATCHER.CIVIL ENGINEERING PROJECT MANAGER [address] [place] [address] [facility] 05/02/24 Family Welfare Social Work Professor Relationship Specialty Start Date End Date Ze Pugh DO [address] [facility] [place] [address] PCP - General Family Medicine 07/12/13 Lacey Jacob, GENERAL MATCHER.CIVIL ENGINEERING PROJECT MANAGER [address] [facility] [place] [address] [facility] 05/02/24 Family Welfare Social Work Professor Relationship Specialty Start Date End Date Ze Pugh DO [address] [facility] [place] [address] PCP - General Family Medicine 07/12/13 Lacey Jacob, GENERAL MATCHER.CIVIL ENGINEERING PROJECT MANAGER [address] [place] [address] Machine Greaser Family [facility] 05/02/24 Family Welfare Social Work Professor Relationship Specialty Start Date End Date Ze Pugh DO [address] [place] [address] PCP - General Family Medicine 07/12/13 [facility], GENERAL MATCHER.CIVIL ENGINEERING PROJECT MANAGER [address] [place] [address] [facility] 05/02/24 Family Welfare Social Work Professor Relationship Specialty Start Date End Date Ze Pugh DO [address] [place] [address] PCP - General Family Medicine 07/12/13 CecilLacey, GENERAL MATCHER.CIVIL ENGINEERING PROJECT MANAGER [address] [place] [address] [facility] 05/02/24 Family Welfare Social Work Professor Relationship Specialty Start Date End Date Ze Pugh DO [address] [place] [address] PCP - General Family Medicine 07/12/13 CecilLacey, GENERAL MATCHER.CIVIL ENGINEERING PROJECT MANAGER [address] [place] [address] [facility] 05/02/24 Family Welfare Social Work Professor Relationship Specialty Start Date End Date Ze Pugh DO [address] [place] [address] PCP - General Family Medicine 07/12/13 CecilLacey, GENERAL MATCHER.CIVIL ENGINEERING PROJECT MANAGER [address] [place] [address] Machine Greaser [facility] 05/02/24 Family Welfare Social Work Professor Relationship Specialty Start Date End Date Ze Pugh DO [address] [place] [address] PCP - General Family Medicine 07/12/13 Lacey Jacob, GENERAL MATCHER.CIVIL ENGINEERING PROJECT MANAGER [address] [place] [address] Machine Greaser [facility] 05/02/24 Augustina Robert, GENERAL MATCHER.CIVIL ENGINEERING PROJECT MANAGER [address] [place] [address] [facility] 11/08/24 Family Welfare Social Work Professor Relationship Specialty Start Date End Date Ze Pugh DO [address] [place] [address] PCP - General Family Medicine 07/12/13 CecilLacey, GENERAL MATCHER.CIVIL ENGINEERING PROJECT MANAGER [address] [place] [address] [facility] 05/02/24 Augustina Robert, GENERAL MATCHER.CIVIL ENGINEERING PROJECT MANAGER [address] [place] [address] [facility] 11/08/24 Family Welfare Social Work Professor Relationship Specialty Start Date End Date Ze Pugh DO [address] [place] [address] PCP - General Family Medicine 07/12/13 CecilLacey, GENERAL MATCHER.CIVIL ENGINEERING PROJECT MANAGER [address] [place] [address] Machine [facility] 05/02/24 Augustina Robert, GENERAL MATCHER.CIVIL ENGINEERING PROJECT MANAGER [address] [facility] [place] [address] Machine Greaser Family [facility] 11/08/24 Family Welfare Social Work Professor Relationship Specialty Start Date End Date Ze Pugh DO [address] [place] [address] PCP - General Family Medicine 07/12/13 Lacey Jacob, GENERAL MATCHER.CIVIL ENGINEERING PROJECT MANAGER [address] [place] [address] Machine Gre[facility] 05/02/24 Augustina Robert, GENERAL MATCHER.CIVIL ENGINEERING PROJECT MANAGER [address] [place] [address] Machine [facility] 11/08/24 Family Welfare Social Work Professor Relationship Specialty Start Date End Date Ze Pugh DO [address] [place] [address] PCP - General Family Medicine 07/12/13 Lacey Jacob, GENERAL MATCHER.CIVIL ENGINEERING PROJECT MANAGER [address] [place] [address] Machine [facility] 05/02/24 Augustina Robert, GENERAL MATCHER.CIVIL ENGINEERING PROJECT MANAGER [address] [place] [address] Machine Greaser Family [facility] 11/08/24 Family Welfare Social Work Professor Relationship Specialty Start Date End Date Ze Pugh DO [address] [place] [address] PCP - General Family Medicine 07/12/13 Lacey Jacob, GENERAL MATCHER.CIVIL ENGINEERING PROJECT MANAGER [address] [place] [address] Machine [facility] 05/02/24 Augustina Robert, GENERAL MATCHER.CIVIL ENGINEERING PROJECT MANAGER [address] [place] [address] [facility] 11/08/24 Family Welfare Social Work Professor Relationship Specialty Start Date End Date Ze Pugh DO [address] [place] [address] PCP - General Family Medicine 07/12/13 Lacey Jacob, GENERAL MATCHER.CIVIL ENGINEERING PROJECT MANAGER [address] [place] [address] Machine [facility] 05/02/24 Augustina Robert, GENERAL MATCHER.CIVIL ENGINEERING PROJECT MANAGER [address] [place] [address] Machine [facility] 11/08/24 Family Welfare Social Work Professor Relationship Specialty Start Date End Date Ze Pugh DO [address] [place] [address] PCP - General Family Medicine 07/12/13 Lacey Jacob, GENERAL MATCHER.CIVIL ENGINEERING PROJECT MANAGER [address] [place] [address] Machine Gre[facility] 05/02/24 Augustina Robert, GENERAL MATCHER.CIVIL ENGINEERING PROJECT MANAGER [address] [place] [address] Machine Greaser Family [facility] 11/08/24 Family Welfare Social Work Professor Relationship Specialty Start Date End Date Ze Pugh DO [address] [place] [address] PCP - General Family Medicine 07/12/13 Lacey Jacob APRN.CIVIL ENGINEERING PROJECT MANAGER [address] [place], [place] [address] [facility] 05/02/24 Augustina Robert APRN.CIVIL ENGINEERING PROJECT MANAGER [address] [place], [place] [address] [facility] 11/08/24 Family Welfare Social Work Professor Relationship Specialty Start Date End Date Ze Pugh DO [address] [place], [place] [address] PCP - General Family Medicine 07/12/13 Lacey Jacob, TAB.CIVIL ENGINEERING PROJECT MANAGER [address] [place], [place] [address] [facility] 05/02/24 Augustina Robert, TAB.CIVIL ENGINEERING PROJECT MANAGER [address] [place], [place] [address] [facility] 11/08/24 INFORMATION SOURCE (unrecogn ized section and content) DATE CREATED AUTHOR 09/30/2024 [facility] DATE CREATED AUTHOR AUTHOR'S ORGANIZ ATION 12/17/2024 [facility] DATE CREATED AUTHOR AUTHOR'S ORGANIZ ATION 01/04/[address] [facility] FOR RECORDS PERTAINING TO PATIENTS WHO ARE OR HAVE BEEN ENROLLED IN A CHEMICAL DEPENDENCY/SUBSTANCEABUSE PROGRAM, SOME INFORMATION MAY BE OMITTED. This clinical summary was aggregated from multiple sources. Caution should be exercised in using it in the provision of clinical care. This summary normalizes information from multiple sources, and as a consequence, information in this document may materially change the coding, format and clinical context of patient data. In addition, data may be omitted in some cases. CLINICAL DECISIONS SHOULD BE BASED ON THE PRIMARY CLINICAL RECORDS. [employer] [facility]. provides no warranty or guarantee of the accuracy or completeness of information in this document.
[2025-01-06 00:58] LABS: ROM Internal Control Test YES-OK TO RESULT pt. (Internal QC)
[2025-01-06 00:59] LABS: ROM Patient Test POSITIVE (Negative); Record Kit Lot#, ROM+ K3358
--- OUTSIDE RECORDS SUMMARY | 2025-01-06 01:03 | XMS RPT_ITS | CCD ---
Author Organization [facility] Care Team Providers Care Food Handler Name Role Phone Ze Pugh DO Primary Care Provider Ze Pugh DO Primary Care Provider [facility] COMMUNITY DEVELOPMENT MANAGER.Radha ESTES Unavailable [facility] COMMUNITY DEVELOPMENT MANAGER.Lacey ESTES Unavailable [facility] COMMUNITY DEVELOPMENT MANAGER.Radha ESTES Unavailable [facility] CARUSO Attending Unavailable PUGH, ZE L Primary Care Unavailable PUGH, ZE L Primary Care Unavailable Jakob COMMUNITY DEVELOPMENT MANAGER.Augustina ESTES Unavailable Marybeth Escamilla Referring Unavailable Marybeth [...] of other high risk pregnancies, second trimester ([facility]) , 12 weeks gestation of ([facility]) Take 1 tablet by mouth once daily. [...] trimester (HCC) , 12 weeks gestation of ([facility]) Take by mouth. Active ergocalciferol, vitamin D2, [...] tablet Indications: Anemia during in third trimester ([facility]) Take 1 tablet by mouth every other day. 30 tablet 3 10/26/2024 Active isopropyl alcohol 0.7 ml/ml medicated pad (12 sources) Start: 10-27-2024 alcohol swabs (ALCOHOL PREP PADS) Indications: Diet controlled gestational diabetes mellitus (GDM) in third trimester ([facility]) Use as directed to check glucose levels [...] ac ( ORAL) Take by mouth. Active Rkbghucu-Ah-Ayi-Fe- FA tab (20 sources) Start: 08-30-2024 take 1 tablet by mouth once daily Eeoxekek-Am-Sbt-Fe- FA tab Take 1 tablet by mouth [...] M OUTH ONCE DAILY polyethylene glycol 3350 [id number] mg / potassium chloride 2970 mg / sodium bicarbonate 6740 mg / sodium chloride 5860 mg / sodium sulfate 28516 mg powder for oral solution (3 sources) [...] mouth every two hours as needed rizatriptan (MAXALT-TOOL REPAIRER) 10 mg disintegrating tablet Indications: Other migraine without status migrainosus, not intractable Take 1 tablet (10 mg) by mouth as needed. May repeat in 2 hours if needed 12 tablet 06/14/2023 08/30/2024 Discontinued (Course of therapy completed) Start: 01-16-2021 End: 05-28-2022 take 1 tablet by mouth every two hours as needed rizatriptan (MAXALT-TOOL REPAIRER) 10 mg disintegrating tablet Indications: Other migraine [...] affecting in third trimester, unspecified obesity type ([facility])] Onset: 10-25-2024 Chronic Other complications of (10 sources) Rubella non-immune; Translations: [Supervision of other high risk pregnancies, unspecified trimester] Onset: 12-06-2024 12-06-2024 Episodic Other complications of (1 source) Supervision of other high risk pregnancies, unspecified trimester; Translations: [Rubella non-immune status, antepartum ([facility])] Onset: 12-06-2024 Episodic Other endocrine disorders (20 [...] Unclassified (1 source) Rubella non-immune status, antepartum ([facility]); Translations: [Rubella non-immune status, antepartum ([facility])] Onset: 12-06-2024 Past or Other Problems Problem [...] 5 Glucose Ql (U) Negative Neg mg/dL [facility] Interpretation and review of laboratory results Normal [facility] Protein.monoclonal (U) [Mass/Vol] Negative Neg mg/dL [facility] Examination level ultrasound on 12-27-2024 [facility] Radiology Study observation (narrative) [facility] ROUTINE, GROUP B ST REPTOCOCCUS BY PCRon 12-27-2024 ROUTINE, GROUP B STREPTOCOCCUS BY PCR Detected Abnormal [facility] Comment on above: Performed By: #### G BPCR ####[facility] LABCLIA [id number] [place] [address] [place] URINE OB DIP B/Oon 5 Glucose Ql (U) Negative Neg mg/dL [facility] Protein.monoclonal (U) [Mass/Vol] Negative Neg mg/dL [facility] URINE OB DIP B/Oon 5 Glucose Ql (U) Negative Neg mg/dL [facility] Interpretation and review of laboratory results Normal [facility] Protein.monoclonal (U) [Mass/Vol] trace Neg mg/dL [facility] CBC W Auto Differential pane l (Bld)on 11-24-2024 Basophils (Bld) [#/Vol] 0.03 10*3/uL [facility] Basophils/100 WBC (Bld) 0.3 % [facility] Differential cell count method Nom (Bld) Auto [facility] Eosinophils (Bld) [#/Vol] 0.12 10*3/uL [facility] Eosinophils/100 WBC (Bld) 1 % [facility] Erythrocyte distribution width (RBC) [Ratio] 15 % 11.5 - 15.0 % [facility] Hematocrit (Bld) [Volume fraction] 32.6 % Low 36.0 - 46.0 % [facility] Hemoglobin (Bld) [Mass/Vol] 10.8 g/dL Low 11.5 - 15.5 g/dL [facility] Immature granulocytes (Bld) [#/Vol] 0.05 10*3/uL [facility] Immature granulocytes/100 WBC (Bld) 0.4 % [facility] Interpretation and review of laboratory results Abnormal [facility] Lymphocytes (Bld) [#/Vol] 2 10*3/uL [facility] Lymphocytes/100 WBC (Bld) 17.1 % [facility] MCH (RBC) [Entitic mass] 29 pg 26.0 - 34.0 pg [facility] MCHC (RBC) [Mass/Vol] 33.1 g/dL 30.5 - 36.0 g/dL [facility] MCV (RBC) [Entitic vol] 87.4 fL 80.0 - 100.0 fL [facility] Monocytes (Bld) [#/Vol] 0.56 10*3/uL [facility] Monocytes/100 WBC (Bld) 4.8 % [facility] Neutrophils (Bld) [#/Vol] 8.93 10*3/uL High [facility] Neutrophils/100 WBC (Bld) 76.4 % [facility] Nucleated RBC (Bld) [#/Vol] [facility] Nucleated RBC/100 WBC (Bld) [Ratio] 0 % /100 WBC [facility] Platelet mean volume (Bld) [Entitic vol] 10.2 fL 9.0 - 12.7 fL [facility] Platelets (Bld) [#/Vol] 201 10*3/uL [facility] RBC (Bld) [#/Vol] 3.73 10*6/uL Low 3.90 - 5.20 m/uL [facility] WBC (Bld) [#/Vol] 11.69 10*3/uL High [facility] Basophils (Bld) [#/Vol] 0.03 10*3/uL Normal <0.11 [facility] Comment on above: Order Comment: Speci men Type: BLOOD SPECIMENOrdering Facility: [facility] Address: [address] [place] [address] Performed By: #### 5 7021-8 ####[facility] MILLTOWNCLIA [id number] [place] [address] [place] Basophils/100 WBC (Bld) 0.3 % Normal [facility] Comment on above: Order Comment: Speci men Type: BLOOD SPECIMENOrdering Facility: [facility] Address: [address] [place] [address] Performed By: #### 5 7021-8 ####[facility]IOR[facility] HEALTH SERVICESNCLIA [id number] [place] [address] [place] Differential cell count method Nom (Bld) Auto Normal [facility] Comment on above: Order Comment: Speci men Type: BLOOD SPECIMENOrdering Facility: [facility] Address: [address] [place] [address] Performed By: #### 5 7021-8 ####[facility] MILLTOWNCLIA [id number] [place] [address] [place] Eosinophils (Bld) [#/Vol] 0.12 10*3/uL Normal <0.46 [facility] Comment on above: Order Comment: Speci men Type: BLOOD SPECIMENOrdering Facility: [facility] Address: [address] [place] [address] Performed By: #### 5 7021-8 ####[facility]AVIORAL HEALTH SERVICESNCLIA [id number] [place] [address] [place] Eosinophils/100 WBC (Bld) 1.0 % Normal [facility] Comment on above: Order Comment: Speci men Type: BLOOD SPECIMENOrdering Facility: [facility] Address: [address] [place] [address] Performed By: #### 5 7021-8 ####[facility] BJCYPRESSFESTUSDALTON [id number] [place] [address] [place] Erythrocyte distribution width (RBC) [Ratio] 15.0 % Normal 11.5-15.0 [facility] Comment on above: Order Comment: Speci men Type: BLOOD SPECIMENOrdering Facility: [facility] Address: [address] [place] [address] Performed By: #### 5 7021-8 ####[facility] HE[facility] SERVICESFESTUSMOUNTAIN POINT [facility] [id number] [place] [address] [place] Hematocrit (Bld) [Volume fraction] 32.6 % Low 36.0-46.0 [facility] Comment on above: Order Comment: Speci men Type: BLOOD SPECIMENOrdering Facility: [facility] Address: [address] [place] [address] Performed By: #### 5 7021-8 ####[facility] HE[facility] SERVICESFESTUSLIA [id number] [place] [address] [place] Hemoglobin (Bld) [Mass/Vol] 10.8 g/dL Low 11.5-15.5 [facility] Comment on above: Order Comment: Speci men Type: BLOOD SPECIMENOrdering Facility: [facility] Address: [address] [place] [address] Performed By: #### 5 7021-8 ####[facility]IORAL HEALTH SERVICESNCLIA [id number] [place] [address] [place] Immature granulocytes (Bld) [#/Vol] 0.05 10*3/uL Normal <0.10 [facility] Comment on above: Order Comment: Speci men Type: BLOOD SPECIMENOrdering Facility: [facility] Address: [address] [place] [address] Performed By: #### 5 7021-8 ####[facility] HE[facility] SERVICESNCMOUNTAIN POINT MED[facility] [id number] [place] [address] [place] Immature granulocytes/100 WBC (Bld) 0.4 % Normal [facility] Comment on above: Order Comment: Speci men Type: BLOOD SPECIMENOrdering Facility: [facility] Address: [address] [place] [address] Performed By: #### 5 7021-8 ####[facility] [id number] [place] [address] [place] Lymphocytes (Bld) [#/Vol] 2.00 10*3/uL Normal 1.00-4.00 [facility] Comment on above: Order Comment: Speci men Type: BLOOD SPECIMENOrdering Facility: [facility] Address: [address] [place] [address] Performed By: #### 5 7021-8 ####[facility] [id number] [place] [address] [place] Lymphocytes/100 WBC (Bld) 17.1 % Normal [facility] Comment on above: Order Comment: Speci men Type: BLOOD SPECIMENOrdering Facility: [facility] Address: [address] [place] [address] Performed By: #### 5 7021-8 ####[facility] [id number] [place] [address] [place] MCH (RBC) [Entitic mass] 29.0 pg Normal 26.0-34.0 [facility] Comment on above: Order Comment: Speci men Type: BLOOD SPECIMENOrdering Facility: [facility] Address: [address] [place] [address] Performed By: #### 5 7021-8 ####[facility] ROSSNCLIA [id number] [place] [address] [place] MCHC (RBC) [Mass/Vol] 33.1 g/dL Normal 30.5-36.0 [facility] Comment on above: Order Comment: Speci men Type: BLOOD SPECIMENOrdering Facility: [facility] Address: [address] [place] [address] Performed By: #### 5 7021-8 ####[facility] BJCYPRESSNCLIA [id number] [place] [address] [place] MCV (RBC) [Entitic vol] 87.4 fL Normal 80.0-100.0 [facility] Comment on above: Order Comment: Speci men Type: BLOOD SPECIMENOrdering Facility: [facility] Address: [address] [place] [address] Performed By: #### 5 7021-8 ####[facility]IOR[facility] HEALTH SERVICESNCLIA [id number] [place] [address] [place] Monocytes (Bld) [#/Vol] 0.56 10*3/uL Normal <0.87 [facility] Comment on above: Order Comment: Speci men Type: BLOOD SPECIMENOrdering Facility: [facility] Address: [address] [place] [address] Performed By: #### 5 7021-8 ####[facility] HOSPITALWNCLIA [id number] [place] [address] [place] Monocytes/100 WBC (Bld) 4.8 % Normal [facility] Comment on above: Order Comment: Speci men Type: BLOOD SPECIMENOrdering Facility: [facility] Address: [address] [place] [address] Performed By: #### 5 7021-8 ####[facility]IOR[facility] HEALTH SERVICESNCLIA [id number] [place] [address] [place] Neutrophils (Bld) [#/Vol] 8.93 10*3/uL High 1.45-7.50 [facility] Comment on above: Order Comment: Speci men Type: BLOOD SPECIMENOrdering Facility: [facility] Address: [address] [place] [address] Performed By: #### 5 7021-8 ####[facility] [id number] [place] [address] [place] Neutrophils/100 WBC (Bld) 76.4 % Normal [facility] Comment on above: Order Comment: Speci men Type: BLOOD SPECIMENOrdering Facility: [facility] Address: [address] [place] [address] Performed By: #### 5 7021-8 ####[facility] [id number] [place] [address] [place] Nucleated RBC (Bld) [#/Vol] 10*3/uL Normal <0.01 [facility] Comment on above: Order Comment: Speci men Type: BLOOD SPECIMENOrdering Facility: [facility] Address: [address] [place] [address] Performed By: #### 5 7021-8 ####[facility] [id number] [place] [address] [place] Nucleated RBC/100 WBC (Bld) [Ratio] 0.0 /100 WBC Normal [facility] Comment on above: Order Comment: Speci men Type: BLOOD SPECIMENOrdering Facility: [facility] Address: [address] [place] [address] Performed By: #### 5 7021-8 ####[facility] [id number] [place] [address] [place] Platelet mean volume (Bld) [Entitic vol] 10.2 fL Normal 9.0-12.7 [facility] Comment on above: Order Comment: Speci men Type: BLOOD SPECIMENOrdering Facility: [facility] Address: [address] [place] [address] Performed By: #### 5 7021-8 ####[facility]IOR[facility] HE[facility] SERVICESNCLIA [id number] [place] [address] [place] Platelets (Bld) [#/Vol] 201 10*3/uL Normal 150-400 [facility] Comment on above: Order Comment: Speci men Type: BLOOD SPECIMENOrdering Facility: [facility] Address: [address] [place] [address] Performed By: #### 5 7021-8 ####[facility]IOR[facility] HE[facility] SERVICESNCLIA [id number] [place] [address] [place] RBC (Bld) [#/Vol] 3.73 10*6/uL Low 3.90-5.20 [facility] Comment on above: Order Comment: Speci men Type: BLOOD SPECIMENOrdering Facility: [facility] Address: [address] [place] [address] Performed By: #### 5 7021-8 ####[facility] HE[facility] SERVICESNCLIA [id number] [place] [address] [place] WBC (Bld) [#/Vol] 11.69 10*3/uL High 3.70-11.00 [facility] Comment on above: Order Comment: Speci men Type: BLOOD SPECIMENOrdering Facility: [facility] Address: [address] [place] [address] Performed By: #### 5 7021-8 ####[facility]IOR[facility] HE[facility] SERVICESNCLIA [id number] [place] [address] [place] Examination level ultrasound on 11-24-2024 [facility] Radiology Study observation (narrative) [facility] Ferritin SerPl-mCncon 2024 Ferritin [Mass/Vol] 14.2 ng/mL Low 14.7-205.1 [facility] Comment on above: Order Comment: Speci men Type: BLOOD SPECIMENOrdering Facility: [facility] Address: [address] [place] [address] Performed By: #### 5 0190-8, 2276-4 ####[facility] LABCLIA [id number] [place] [address] [place] HBV surface Ag Ser Qlon 07-0 HBV surface Ag Ql (S) Negative Normal Negative [facility] Comment on above: Order Comment: Speci men Type: BLOOD SPECIMENOrdering Facility: [facility] Address: [address] [place] [address] Performed By: #### 5 195-3, 46447-3 ####[facility] LABIA [id number] [place] [address] [place] HIV 1+2 Ab IA Qlon 5 HIV 1 and 2 Ab IA.rapid Nom (S/P/Bld) Normal [facility] Comment on above: Order Comment: Speci men Type: BLOOD SPECIMENOrdering Facility: [facility] Address: [address] [place] [address] Result Comment: Test not indicated. Performed By: #### 5 195-3, 92566-4 ####[facility] LABIA [id number] [place] [address] [place] HIV 1+2 Ab+HIV1 p24 Ag IA Ql Non-Reactive Normal Nonreactive [facility] Comment on above: Order Comment: Speci men Type: BLOOD SPECIMENOrdering Facility: [facility] Address: [address] [place] [address] Performed By: #### 5 195-3, 47434-3 ####[facility] LABCLIA [id number] [place] [address] [place] HIV immunoassay testing algorithm interpretation (S/P/Bld) [Interp] Normal [facility] Comment on above: Order Comment: Speci men Type: BLOOD SPECIMENOrdering Facility: [facility] Address: [address] [place] [address] Result Comment: No e vidence of HIV-1 or HIV-2 infection. Should recent infection be suspected, repeat testing may be considered 2-3 weeks after this draw. [place] Rev. Code 3701.243(E): This information has been [...] or diagnoses. Performed By: #### 5 195-3, 44518-8 ####[facility] LABCLIA [id number] [place] [address] [place] Iron and Iron binding capaci ty panelon 11-24-2024 Iron [Mass/Vol] 182 ug/dL Normal 41-186 [facility] Comment on above: Order Comment: Speci men Type: BLOOD SPECIMENOrdering Facility: [facility] Address: [address] [place] [address] Performed By: #### 5 0190-8, 2276-4 ####[facility] LABIA [id number] [place] [address] [place] Iron binding capacity [Mass/Vol] 379 ug/dL Normal 232-386 [facility] Comment on above: Order Comment: Speci men Type: BLOOD SPECIMENOrdering Facility: [facility] Address: [address] [place] [address] Performed By: #### 5 0190-8, 6-4 ####[facility] LABCLIA [id number] [place] [address] [place] Iron/TIBC [Molar ratio] 48.0 % Normal 15.0-57.0 [facility] Comment on above: Order Comment: Speci men Type: BLOOD SPECIMENOrdering Facility: [facility] Address: [address] [place] [address] Performed By: #### 5 0190-8, 2276-4 ####[facility] LABCLIA [id number] [address] RUBELLA IGG ANTIBODYon 11-24 RUBELLA IGG AB, QUAL Equivocal Abnormal Positive [facility] Comment on above: Order Comment: Speci men Type: BLOOD SPECIMENOrdering Facility: [facility] Address: [address] [place] [address] Result Comment: Fahad ot exclude non-specific reactivity or recent or past exposure to Rubella virus including vaccination. Equivocal result may also be seen due to waning immunity to Rubella virus or presence of passively-transferred antibodies. Please correlate with patient's history. Performed By: #### R UBIGG ####[facility] LABCLIA [id number] [address] CNNURSEon 11-01-2024 CNNURSE Nurse Visit (EDEDSJ) BRYCE RAMIREZ ([id number]) 1990 F Date Time Provider Department 11/01/24 9:00 AM CIARRA HUBBARD EDEDSReza During your visit today, we recorded the following information about you: Ciarra Hubbard, RN 11/01/2024 10:47 AM Signed DIABETES SELF-MANAGEMENT EDUCATION AND SUPPORT Location: [facility] Type of visit: Virtual (with video) individual I have communicated my name and active licensure. The patient's identity and physical location were verified at the time of this visit. Either the patient or their legal sales representative advertising has been informed of the risks and [...] Race/Ethnic Origin: White/ Does you culture or yazidi require any of the following: No cultural/quaker practices affecting DM Do you have problems [...] How do you manage stress? Watch [employer] [place] Do any of the following things get [...] levels u (more content not included)... Normal [facility] GLUCOSE GESTATIONAL, 1 HOURo n 10-27-2024 Glucose 1 Hr post Unsp challenge [Mass/Vol] 185 mg/dL High 74-179 [facility] Comment on above: Order Comment: Speci men Type: BLOOD SPECIMENOrdering Facility: [facility] Address: [address] [place] [address] Result Comment: [facility] [place] Congress of Obstetricians and Gynecologists (Kaye/Nitin) guidelines state gestational diabetes mellitus is present when 2 or more of the plasma glucose concentrations meet or exceed the following levels: fastin mg/dl, 1 hr: 180 mg/dl, 2 hr: 155 mg/dl, and 3 hr: 140 mg/dl. Performed By: #### G TGST1 ####[facility] [id number] [place] [address] [place] GLUCOSE GESTATIONAL, 2 HOURo n 10-27-2024 Glucose 2 Hr post Unsp challenge [Mass/Vol] 164 mg/dL High 74-154 [facility] Comment on above: Order Comment: Speci selvin Type: BLOOD SPECIMENOrdering Facility: [facility] Address: [address] [place] [address] Result Comment: [facility] of Obstetricians and Gynecologists (Restrepo/Nitin) guidelines state gestational diabetes mellitus is present when 2 or more of the plasma glucose concentrations meet or exceed the following levels: fastin mg/dl, 1 hr: 180 mg/dl, 2 hr: 155 mg/dl, and 3 hr: 140 mg/dl. Performed By: #### G TGST2 ####[facility] [id number] [address] [place] GLUCOSE GESTATIONAL, 3 HOURo n 10-27-2024 Glucose 3 Hr post Unsp challenge [Mass/Vol] 123 mg/dL Normal 74-139 [facility] Comment on above: Order Comment: Jacqueline montalvo Type: BLOOD SPECIMENOrdering Facility: [facility] Address: [address] [place] [address] Result Comment: [facility] Congress of Obstetricians and Gynecologists (Restrepo/Nitin) guidelines state gestational diabetes mellitus is present when 2 or more of the plasma glucose concentrations meet or exceed the following levels: fastin mg/dl, 1 hr: 180 mg/dl, 2 hr: 155 mg/dl, and 3 hr: 140 mg/dl. Performed By: #### G TGST3 ####[facility] [id number] [address] [place] GLUCOSE GESTATIONAL, FASTING on 10-27-2024 Glucose post fast [Mass/Vol] 98 mg/dL High 74-94 [facility] Comment on above: Order Comment: Speci men Type: BLOOD SPECIMENOrdering Facility: [facility] Address: [address] [place] [address] Result Comment: [facility] [place] Congress of Obstetricians and Gynecologists (Kaye/Nitin) guidelines state gestational diabetes mellitus is present when 2 or more of the plasma glucose concentrations meet or exceed the following levels: fastin mg/dl, 1 hr: 180 mg/dl, 2 hr: 155 mg/dl, and 3 hr: 140 mg/dl. Performed By: #### G TGSTF ####[facility] [id number] [place] [address] [place] CBC W Auto Differential pane l (Bld)on 10-25-2024 Basophils (Bld) [#/Vol] 0.04 10*3/uL Normal <0.11 [facility] Comment on above: Order Comment: Speci men Type: BLOOD SPECIMENOrdering Facility: [facility] Address: [address] [place] [address] Performed By: #### 5 7021-8 ####[facility] [id number] [place] [address] [place] Basophils/100 WBC (Bld) 0.4 % Normal [facility] Comment on above: Order Comment: Speci men Type: BLOOD SPECIMENOrdering Facility: [facility] Address: [address] [place] [address] Performed By: #### 5 7021-8 ####[facility] [id number] [address] STATES [facility] Differential cell count method Nom (Bld) Auto Normal [facility] Comment on above: Order Comment: Speci men Type: BLOOD SPECIMENOrdering Facility: [facility] Address: [address] [place] [address] Performed By: #### 5 7021-8 ####[facility] MILLWNCLIA [id number] [place] [address] [place] Eosinophils (Bld) [#/Vol] 0.15 10*3/uL Normal <0.46 [facility] Comment on above: Order Comment: Speci men Type: BLOOD SPECIMENOrdering Facility: [facility] Address: [address] [place] [address] Performed By: #### 5 7021-8 ####[facility] CENTERLIA [id number] [place] [address] [place] Eosinophils/100 WBC (Bld) 1.4 % Normal [facility] Comment on above: Order Comment: Speci men Type: BLOOD SPECIMENOrdering Facility: [facility] Address: [address] [place] [address] Performed By: #### 5 7021-8 ####[facility] CENTERLIA [id number] [place] [address] [place] Erythrocyte distribution width (RBC) [Ratio] 14.6 % Normal 11.5-15.0 [facility] Comment on above: Order Comment: Speci men Type: BLOOD SPECIMENOrdering Facility: [facility] Address: [address] [place] [address] Performed By: #### 5 7021-8 ####[facility] CENTERLIA [id number] [place] [address] [place] Hematocrit (Bld) [Volume fraction] 30.8 % Low 36.0-46.0 [facility] Comment on above: Order Comment: Speci men Type: BLOOD SPECIMENOrdering Facility: [facility] Address: [address] [place] [address] Performed By: #### 5 7021-8 ####[facility] SERVICESNCMOUNT[facility] [id number] [place] [address] [place] Hemoglobin (Bld) [Mass/Vol] 10.1 g/dL Low 11.5-15.5 [facility] Comment on above: Order Comment: Speci men Type: BLOOD SPECIMENOrdering Facility: [facility] Address: [address] [place] [address] Performed By: #### 5 7021-8 ####[facility] CENTERLIA [id number] [place] [address] [place] Immature granulocytes (Bld) [#/Vol] 0.03 10*3/uL Normal <0.10 [facility] Comment on above: Order Comment: Speci men Type: BLOOD SPECIMENOrdering Facility: [facility] Address: [address] [place] [address] Performed By: #### 5 7021-8 ####[facility] SERVICESNCMOUNT[facility] [id number] [place] [address] [place] Immature granulocytes/100 WBC (Bld) 0.3 % Normal [facility] Comment on above: Order Comment: Speci men Type: BLOOD SPECIMENOrdering Facility: [facility] Address: [address] [place] [address] Performed By: #### 5 7021-8 ####[facility] HE[facility] SERVICESNCA [id number] [place] [address] [place] Lymphocytes (Bld) [#/Vol] 1.85 10*3/uL Normal 1.00-4.00 [facility] Comment on above: Order Comment: Speci men Type: BLOOD SPECIMENOrdering Facility: [facility] Address: [address] [place] [address] Performed By: #### 5 7021-8 ####[facility] HE[facility] SERVICESNCLIA [id number] [place] [address] [place] Lymphocytes/100 WBC (Bld) 16.7 % Normal [facility] Comment on above: Order Comment: Speci men Type: BLOOD SPECIMENOrdering Facility: [facility] Address: [address] [place] [address] Performed By: #### 5 7021-8 ####[facility] BJKseniaNCDALTON [id number] [place] [address] [place] MCH (RBC) [Entitic mass] 28.8 pg Normal 26.0-34.0 [facility] Comment on above: Order Comment: Speci men Type: BLOOD SPECIMENOrdering Facility: [facility] Address: [address] [place] [address] Performed By: #### 5 7021-8 ####[facility] HEALTH SERVICESNCDALTON [id number] [place] [address] [place] MCHC (RBC) [Mass/Vol] 32.8 g/dL Normal 30.5-36.0 [facility] Comment on above: Order Comment: Speci men Type: BLOOD SPECIMENOrdering Facility: [facility] Address: [address] [place] [address] Performed By: #### 5 7021-8 ####[facility] HEALTH SERVICESNCA [id number] [address] [place] MCV (RBC) [Entitic vol] 87.7 fL Normal 80.0-100.0 [facility] Comment on above: Order Comment: Speci men Type: BLOOD SPECIMENOrdering Facility: [facility] Address: [address] [place] [address] Performed By: #### 5 7021-8 ####[facility] HE[facility] SERVICESNCA [id number] [place] [address] [place] Monocytes (Bld) [#/Vol] 0.47 10*3/uL Normal <0.87 [facility] Comment on above: Order Comment: Speci men Type: BLOOD SPECIMENOrdering Facility: [facility] Address: [address] [place], [place] [address] Performed By: #### 5 7021-8 ####[facility] MILLWNCLIA [id number] [place] [address] [place] Monocytes/100 WBC (Bld) 4.2 % Normal [facility] Comment on above: Order Comment: Speci men Type: BLOOD SPECIMENOrdering Facility: [facility] Address: [address] [place] [address] Performed By: #### 5 7021-8 ####[facility] HE[facility] SERVICESNCLIA [id number] [place] [address] [place] Neutrophils (Bld) [#/Vol] 8.56 10*3/uL High 1.45-7.50 [facility] Comment on above: Order Comment: Speci men Type: BLOOD SPECIMENOrdering Facility: [facility] Address: [address] [place] [address] Performed By: #### 5 7021-8 ####[facility] CENTERLIA [id number] [place] [address] [place] Neutrophils/100 WBC (Bld) 77.0 % Normal [facility] Comment on above: Order Comment: Speci men Type: BLOOD SPECIMENOrdering Facility: [facility] Address: [address] [place] [address] Performed By: #### 5 7021-8 ####[facility] HE[facility] SERVICESNCLIA [id number] [place] [address] [place] Nucleated RBC (Bld) [#/Vol] 10*3/uL Normal <0.01 [facility] Comment on above: Order Comment: Speci men Type: BLOOD SPECIMENOrdering Facility: [facility] Address: [address] [place] [address] Performed By: #### 5 7021-8 ####[facility] HE[facility] SERVICESNCLIA [id number] [place] [address] [place] Nucleated RBC/100 WBC (Bld) [Ratio] 0.0 /100 WBC Normal [facility] Comment on above: Order Comment: Speci men Type: BLOOD SPECIMENOrdering Facility: [facility] Address: [address] [place] [address] Performed By: #### 5 7021-8 ####[facility] HEALTH SERVICESNCLISSETTEA [id number] [place] [address] [place] Platelet mean volume (Bld) [Entitic vol] 10.1 fL Normal 9.0-12.7 [facility] Comment on above: Order Comment: Speci men Type: BLOOD SPECIMENOrdering Facility: [facility] Address: [address] [place] [address] Performed By: #### 5 7021-8 ####[facility] SERVICESNCMOUNT[facility] [id number] [place] [address] [place] Platelets (Bld) [#/Vol] 209 10*3/uL Normal 150-400 [facility] Comment on above: Order Comment: Speci men Type: BLOOD SPECIMENOrdering Facility: [facility] Address: [address] [place] [address] Performed By: #### 5 7021-8 ####[facility] HE[facility] SERVICESNCLIA [id number] [place] [address] [place] RBC (Bld) [#/Vol] 3.51 10*6/uL Low 3.90-5.20 [facility] Comment on above: Order Comment: Speci men Type: BLOOD SPECIMENOrdering Facility: [facility] Address: [address] [place] [address] Performed By: #### 5 7021-8 ####[facility] SERVICESNCLIA [id number] [place] [address] [place] WBC (Bld) [#/Vol] 11.10 10*3/uL High 3.70-11.00 [facility] Comment on above: Order Comment: Speci selvin Type: BLOOD SPECIMENOrdering Facility: [facility] Address: [address] [place] [address] Performed By: #### 5 7021-8 ####[facility] SERVICESNCMOUNT[facility] [id number] [place] [address] [place] Examination level ultrasound on 10-25-2024 [facility] Radiology Study observation (narrative) [facility] GESTATIONAL GLUCOSE SCREEN, 1-HOUR, 50 GRAM, NON-FASTINGon 10-25-2024 Glucose [Mass/Vol] 138 mg/dL High 74-134 [facility] Comment on above: Order Comment: Jacqueline montalvo Type: BLOOD SPECIMENOrdering Facility: [facility] Address: [address] [place] [address] Result Comment: [facility] Congress of Obstetricians and Gynecologists (Restrepo/Nitin) guidelines state a gestational diabetes mellitus positive screen is made, in women not previously diagnosed with overt diabetes, when the 1 hr plasma glucose level is equal to or above 140 mg/dL. The [facility] [employer] recommends a 135 mg/dL cutoff. Performed By: #### G LTGST ####[facility] [id number] [place] [address] [place] Iron and Iron binding capaci ty panelon 10-25-2024 Iron [Mass/Vol] 44 ug/dL Normal 41-186 [facility] Comment on above: Order Comment: Julioi men Type: BLOOD SPECIMENOrdering Facility: [facility] Address: [address] [place] [address] Performed By: #### 5 0190-8 ####[facility] LABCLIA [id number] [place] [address] [place] Iron binding capacity [Mass/Vol] 382 ug/dL Normal 232-386 [facility] Comment on above: Order Comment: Jacqueline men Type: BLOOD SPECIMENOrdering Facility: [facility] Address: [address] [place] [address] Performed By: #### 5 0190-8 ####[facility] LABIA [id number] [place] [address] [place] Iron/TIBC [Molar ratio] 11.5 % Low 15.0-57.0 [facility] Comment on above: Order Comment: Speci men Type: BLOOD SPECIMENOrdering Facility: [facility] Address: [address] [place] [address] Performed By: #### 5 0190-8 ####[facility] LAB[facility] [id number] [place] [address] [place] Reagin and Treponema pallidu m IgG and IgM [Interp]on 10-25-2024 T. pallidum IgG+IgM IA Ql (S) Non-Reactive Normal Nonreactive [facility] Comment on above: Order Comment: Speci men Type: BLOOD SPECIMENOrdering Facility: [facility] Address: [address] [place] [address] Performed By: #### 7 3752-8 ####[facility]IA [id number] [place] [address] [place] Reagin+T pallidum IgG+IgM Se rPl-Impon 10-25-2024 Reagin and Treponema pallidum IgG and IgM [Interp] Cannot exclude recent Treponemal infection if specimen collected within 7-10 days after appearance of suspect lesions or 2-3 weeks after an exposure. Clinical correlation is required. Normal [facility] Comment on above: Order Comment: Speci men Type: BLOOD SPECIMENOrdering Facility: [facility] Address: [address] [place] [address] Performed By: #### 7 3752-8 ####[facility] [id number] [place] [address] [place] TYPE + SCREEN PRENATALon ABO O Normal [facility] Comment on above: Order Comment: Speci men Type: BLOOD SPECIMEN [facility] Address: [address] [place] [address] Performed By: #### T SPN #### [facility] CLIA [id number] [address] [place], [place] [address] [place] Rh Nom (Bld) Positive Normal [facility] Comment on above: Order Comment: Speci men Type: BLOOD SPECIMEN [facility] Address: [address] [place] [address] Performed By: #### T SPN #### [facility] CLIA [id number] [address] [place] [address] [place] TYPE AND SCREEN EXPIRATION 10/28/2024 23:59 Normal [facility] Comment on above: Order Comment: Speci men Type: BLOOD SPECIMEN [facility] Address: [address] [place] [address] Performed By: #### T SPN #### [facility] CLIA [id number] [address] [place], [place] [address] [place] Urine Cultureon 10-18-2024 U[facility] Mixed Gram Positive Organisms Alcalde Count >100,000 MIXC Mixed contaminants. Submit a new specimen if indicated. Normal [facility] Comment on above: Performed By: #### M 100.2200 #### [facility] [address] [place], [address] AST(SGOT)on 10-16-2024 AST [Catalytic activity/Vol] 14 U/L Normal <=31 [facility] Comment on above: Performed By: #### L 501.0900, L501.1105, L100.0500, L501.4405, L501.4100, L501.1400 #### [facility] [address] [place], [address] Alanine Aminotransferas (SGP T)on 10-16-2024 ALT [Catalytic activity/Vol] 8 U/L Normal <=34 [facility] Comment on above: Performed By: #### L 501.0900, L501.1105, L100.0500, L501.4405, L501.4100, L501.1400 #### [facility] [address] [place], [address] CBC-Complete Blood Cnt No Di ffon 10-16-2024 Erythrocyte distribution width (RBC) [Ratio] 14.6 % Normal 11.6-14.6 [facility] Comment on above: Performed By: #### L 501.0900, L501.1105, L100.0500, L501.4405, L501.4100, L501.1400 #### [facility] [address] [place], [address] Hematocrit (Bld) [Volume fraction] 31.5 % Low 37-47 [facility] Comment on above: Performed By: #### L 501.0900, L501.1105, L100.0500, L501.4405, L501.4100, L501.1400 #### [facility] [address] [place], [address] Hemoglobin (Bld) [Mass/Vol] 10.5 g/dL Low 12.0-15.0 [facility] Comment on above: Performed By: #### L 501.0900, L501.1105, L100.0500, L501.4405, L501.4100, L501.1400 #### [facility] [address] [place], [address] MCH (RBC) [Entitic mass] 29.5 pg Normal 27.0-32.0 [facility] Comment on above: Performed By: #### L 501.0900, L501.1105, L100.0500, L501.4405, L501.4100, L501.1400 #### [facility] [address] [place], [address] MCHC (RBC) [Mass/Vol] 33.3 g/dL Normal 32-36 [facility] Comment on above: Performed By: #### L 501.0900, L501.1105, L100.0500, L501.4405, L501.4100, L501.1400 #### [facility] [address] [place], [address] MCV (RBC) [Entitic vol] 88.5 fL Normal 81-99 [facility] Comment on above: Performed By: #### L 501.0900, L501.1105, L100.0500, L501.4405, L501.4100, L501.1400 #### [facility] [address] [place], [address] Platelet mean volume (Bld) [Entitic vol] 9.9 fL Normal 6.2-12.0 [facility] Comment on above: Performed By: #### L 501.0900, L501.1105, L100.0500, L501.4405, L501.4100, L501.1400 #### [facility] [address] [place], [address] Platelets (Bld) [#/Vol] 221 10*3/uL Normal 150-450 [facility] Comment on above: Performed By: #### L 501.0900, L501.1105, L100.0500, L501.4405, L501.4100, L501.1400 #### [facility] [address] [place], [address] RBC (Bld) [#/Vol] 3.56 10*6/uL Low 4.2-5.4 [facility] Comment on above: Performed By: #### L 501.0900, L501.1105, L100.0500, L501.4405, L501.4100, L501.1400 #### [facility] [address] [place], [address] RDW SD 47.3 fl High 35.1-43.9 [facility] Comment on above: Performed By: #### L 501.0900, L501.1105, L100.0500, L501.4405, L501.4100, L501.1400 #### [facility] [address] [place], [address] WBC (Bld) [#/Vol] 10.1 10*3/uL Normal 4.4-11.0 [facility] Comment on above: Performed By: #### L 501.0900, L501.1105, L100.0500, L501.4405, L501.4100, L501.1400 #### [facility] [address] [place], [address] Discharge Instructionon 09-24 Discharge Instruction [facility] Medical Records Department [address] [place] [address] Instructions for Home/Discharge Instructions 10/16/242031 MR#: [id number] Acct: [id number] Name: BRYCE RAMIREZ Rep #: [id number] : 1990 34 From: Marybeth Escamilla CNM [...] upset Finish all of medication No Action vit,[id number]-[id number] [Prenatabs FA] 1 TABLET tablet 1 tab PO DAILY ibuprofen 600 MG tablet 600 mg PO Q6H PRN PRN (Reason: Pain Score 1-3/10) 0RF Referrals / Follow Up: Ze Pugh DO [Primary Care Provider] - Disposition Patient Disposition: Home, Self Care 10/16/242033 Marybeth Escamilla CNM CC: Dr. Ze Pugh DO Signed Normal [facility] OB Triage Physician Noteon 0 10-16-2024 OB Triage Physician Note [facility] Medical Records Department [address] [place] [address] OB Triage Physician Note 10/16/242023 MR#: [id number] Acct: [id number] Name: BRYCE RAMIREZ Rep #: [id number] : 1990 34 From: Marybeth Escamilla CNM PCP: Dr. Ze Pugh, Status:REG CLI Y [address]: [address] HPI - General HPI Narrative BRYCE [...] Escamilla; Dr. Ze Pugh, DO Signed Normal [facility] Protein+Creatinine Ratio,Uri neon 10-16-2024 PROT:CRE RATIO 101 mg/g CRE Normal 0-200 [facility] Comment on above: Performed By: #### L 501.0900, L501.1105, L100.0500, L501.4405, L501.4100, L501.1400 #### [facility] [address] [place], [address] Protein (U) [Mass/Vol] 13.4 mg/dL High 0.0-12.0 [facility] Comment on above: Performed By: #### L 501.0900, L501.1105, L100.0500, L501.4405, L501.4100, L501.1400 #### [facility] [address] [place], [address] UR CREAT 133.00 mg/dL Normal 28.00-217.00 [facility] Comment on above: Performed By: #### L 501.0900, L501.1105, L100.0500, L501.4405, L501.4100, L501.1400 #### [facility] [address] [place], [address] Serum Creatinine AND GFRon 0 10-16-2024 Creatinine [Mass/Vol] 0.53 mg/dL Low 0.70-1.20 [facility] Comment on above: Performed By: #### L 501.0900, L501.1105, L100.0500, L501.4405, L501.4100, L501.1400 #### [facility] [address] [place], [address] GFR/1.73 sq M.predicted among non-blacks MDRD (S/P/Bld) [Vol rate/Area] 124 mL/min/{1.73_m2} Normal >60 [facility] Comment on above: Result Comment: mL/m in/1.73m2 CKD-EPI Creatinine Equation (2020) Performed By: #### L 501.0900, L501.1105, L100.0500, L501.4405, L501.4100, L501.1400 #### [facility] [address] [place], [address] Uric Acidon 10-16-2024 URIC 2.2 mg/dL Low 2.6-6.0 [facility] Comment on above: Result Comment: The drugs N-Acetylcysteine and Metamizole may falsely depress this assay. Performed By: #### L 501.0900, L501.1105, L100.0500, L501.4405, L501.4100, L501.1400 #### [facility] [address] [place], [address] Urinalysis, Completeon 10-16 BACTERIA 4+ /hpf Normal None Seen [facility] Comment on above: Order Comment: CLEAN CATCH Performed By: #### L 400.0001 #### [facility] [address] [place], [address] EPI,SQUAMOUS 10-25 SEEN Normal 5-10 [facility] Comment on above: Order Comment: CLEAN CATCH Performed By: #### L 400.0001 #### [facility] [address] [place], [address] RBC 0-5 SEEN Normal 0-5 [facility] Comment on above: Order Comment: CLEAN CATCH Performed By: #### L 400.0001 #### [facility] [address] [place], [address] WBC 10-25 SEEN Normal 0-5 [facility] Comment on above: Order Comment: CLEAN CATCH Performed By: #### L 400.0001 #### [facility] [address] [place], [address] Mucus Ql (Urine sed) 0 SEEN Normal [facility] Comment on above: Order Comment: CLEAN CATCH Performed By: #### L 400.0001 #### [facility] [address] [place], [address] FETALon 09-27-2024 + - -------+-+ Pediatric Cardiology Echocardiogram Report + -------+-+ NAME: BRYCE RAMIREZ : 1990 PT ID#: [id number] Age: 34 years Sex: F STUDY DATE: 09/27/2024 9:04:40 AM DIDIER: 01/15/2025 GA: 24w2d Image Quality: The images were of adequate diagnostic quality. Diagnosing Physician: Moses Caruso MD Product Manager Medical Device: Farzaneh Beauchamp 2nd Product Manager Medical Device: Diagnosis: [id number] abnormality and damage, single fetus or unspecified Procedure Code: 01949, 71777, 39377 Echo, Complete (w/Doppler and color) Exam Location: [...] and smith (more content not included)... Normal [facility] CNPNon 09-14-2024 CNPN Telephone (CHPDMN) BRYCE RAMIREZ ([id number]) 1990 F Date Time Provider Department 09/14/24 [facility] PROVIDER [facility] During your visit today, we recorded the following information about you: Jacqueline Duarte 09/14/2024 8:38 AM Signed Left vm to schedule echo [phone] opt 2 Allergies As of Date: 09/14/2024 (No Known Allergies) Date Reviewed: 08/03/2024 Reviewed by: Laine Mccollum APRN.FUSING MACHINE OPERATOR - Fully Assessed Reason for Visit: Consult [173] Cmt: echo Prescriptions as of 09/14/2024 - aspirin, enteric coated (ECOTRIN LOW STRENGTH) 81 mg EC tablet Take 1 tablet by mouth once daily. - Fzpottnf-Nu-Zlj-Fe-FA tab Take 1 tablet by mouth once [...] Status:Closed by JACQUELINE DUARTE on 09/14/24 Normal [facility] Afshan 09-07-2024 CNPN Telephone (OBGYWM) BRYCE RAMIREZ ([id number]) 1990 F Date Time Provider Department 09/07/24 CHAYA FERMIN During your visit today, we recorded the following information about you: Kandy Rivers RN 09/07/2024 9:58 AM Signed Chaya Fermin APRN.ELMIRA Sage tr Ob-Rope Machine Setter Pool Do we still not have her [...] her to sign records release at front office assistant. NIKUNJ Sterling Tara, RN 11/09/2024 4:04 PM Signed Records release faxed to [facility] on 10/26/24 at 9:29 am for all medical records re:continuity of care. Kandy Rivers RN Allergies As of Date: 09/07/2024 (No Known Allergies) Date Reviewed: 08/03/2024 Reviewed by: Laine Mccollum APRN.FUSING MACHINE OPERATOR - Fully Assessed Reason for Visit: Request [...] 1 tablet by mouth once daily. - Sduryrvd-Xk-Otw-Fe-FA tab Take 1 tablet by mouth once [...] Status:Closed by JULIETTE FERNANDEZ on 09/15/24 Normal [facility] Examination level ultrasound on 08-30-2024 Indication Detailed [...] 13 oz EFW by: Hadlock (HC-AC-FL) Extended Diesel Powerplant Mechanic 5.3 mm CM 3.6 mm 9% Nicolaides [...] normal LVOT view: normal 3-vessel view: normal 1-kyxhbl-rdduysd view: normal Heart / Thorax Situs: situs [...] Read By: Yady Boyer M.D. MATERNAL MEDICINE [facility] Radiology Study observation (narrative) [facility] Afshan 07-22-2024 [facility] BRYCE RAMIREZ ([id number]) 1990 F Date Time Provider Department 07/22/[facility] your visit today, we recorded [...] D2 ORAL) Take by mouth. - rizatriptan (MAXALT-TOOL REPAIRER) 10 mg disintegrating tablet Take 1 tablet [...] Status:Closed by CAN BUSH on 08/06/24 Normal [facility] Examination level ultrasound on 07-12-2024 Indication First trimester anatomic survey resulting from in vitro fertilization, Maternal obesity, BMI >35 Impression REMOTE READ The patient is referred for a first trimester anatomy scan including nuchal translucency measurement as clinically indicated. - Single, live, intrauterine . - Starbrick rump length measurement is consistent with the [...] view: suboptimal 4-chamber view with color: suboptimal 9-dabktk-lwvpfnd view: suboptimal Abdominal cord insertion: normal Stomach: [...] Read By: Yady Boyer M.D. MATERNAL MEDICINE [facility] Radiology Study observation (narrative) [facility] HbA1c (Bld)on 07-12-2024 Average glucose Estimated from glycated hemoglobin (Bld) [Mass/Vol] 103 mg/dL [facility] Comment on above: eAG: (Estimated aver age glucose) is a calculated value from HgbA1c and is sales representative advertising of the average blood glucose level in the last 2-3 month period. HbA1c (Bld) [Mass fraction] 5.2 % 4.3 - 5.6 % [facility] Comment on above: [place] Diabetes As sociation guidelines indicate that patients with HgbA1c in the range 5.7-6.4% are at increased risk for development of diabetes, and intervention by lifestyle modification may be beneficial. HgbA1c greater or equal to 6.5% is considered diagnostic of diabetes. [facility] Average glucose Estimated from glycated hemoglobin (Bld) [Mass/Vol] 103 mg/dL Normal [facility] Comment on above: Order Comment: Speci men Type: BLOOD SPECIMENOrdering Facility: [facility] Address: [address] [place] [id number] Result Comment: eAG: (Estimated average glucose) is a calculated value from HgbA1c and is sales representative advertising of the average blood glucose level in the last 2-3 month period. Performed By: #### 5 5454-3 ####[facility] [id number] [place] [address] [place] HbA1c (Bld) [Mass fraction] 5.2 % Normal 4.3-5.6 [facility] Comment on above: Order Comment: Speci men Type: BLOOD SPECIMENOrdering Facility: [facility] Address: [address] [place] [address] Result Comment: [place] Diabetes Association guidelines indicate that patients with HgbA1c in the range 5.7-6.4% are at increased risk for development of diabetes, and intervention by lifestyle modification may be beneficial. HgbA1c greater or equal to 6.5% is considered diagnostic of diabetes. Performed By: #### 5 5454-3 ####[facility] [id number] [place] [address] [place] BACTERIAL CULTURE, URINEOrde red By: Paulo Barger on 07-08-2024 Bacteria identified Cx Nom (U) 50,000-<100,000 CFU/ml Normal urogenital flip [facility] Bacteria identified Cx Nom ( U)Ordered By: Paulo Barger on 07-08-2024 [facility] C. trachomatis+N. gonorrhoea e DNA ABRIL+probe Ql (Unsp spec)on 07-08-2024 C. trachomatis rRNA ABRIL+probe Ql (Unsp spec) Not detected Not detected [facility] Interpretation and review of laboratory results Normal [facility] N. gonorrhoeae rRNA ABRIL+probe Ql (Unsp spec) Not detected Not detected [facility] This FDA-approved assay has been modified to accept rectal swabs self-collected in a healthcare setting. For self-collected rectal swabs, the test was developed and its performance characteristics determined by the [facility]'s [facility] [place] ([facility]). It has not been cleared or approved by the FDA. [facility] is regulated under CLIA as qualified to perform high-complexity testing. This test is used for clinical purposes. It should not be regarded as investigational or for research. [facility] TRICHOMONAS VAGINALIS NAATon 07-08-2024 Interpretation and review of laboratory results Normal [facility] T. vaginalis DNA ABRIL+probe Ql (Unsp spec) Not detected Not detected [facility] BACTERIAL VAGINOSIS NAATon 0 07-07-2024 Interpretation and review of laboratory results Normal [facility] Lactobacillus crispatus+gasseri+je nsenii + Gardnerella vaginalis + Atopobium vaginae rRNA ABRIL+probe Ql (Vag fld) Not detected Not detected [facility] Lactobacillus crispatus+gasseri+je nsenii + Gardnerella vaginalis + Atopobium vaginae rRNA ABRIL+probe Ql (Vag fld) Not detected Normal Not detected [facility] Comment on above: Order Comment: Speci men Type: SWABOrdering Facility: [facility] Address: [address] [place] [address] Performed By: #### B VAMP ####[facility] [id number] [place] [address] [place] Bacteria Ur Culton Bacteria identified Cx Nom (U) ORGANISM ID: 1 50,000-<100,000 CFU/ml Normal urogenital flip Normal [facility] Comment on above: Performed By: #### 6 30-4 ####[facility] [id number] [place] [address] [place] C. trachomatis+N. gonorrhoea e DNA ABRIL+probe Ql (Unsp spec)on 07-07-2024 C. trachomatis rRNA ABRIL+probe Ql (Unsp spec) Not detected Normal Not detected [facility] Comment on above: Order Comment: Speci men Type: SWABOrdering Facility: [facility] Address: [address] [place] [address] Performed By: #### 3 6902-5, SILAS ####[facility] [id number] [place] [address] [place] N. gonorrhoeae rRNA ABRIL+probe Ql (Unsp spec) Not detected Normal Not detected [facility] Comment on above: Order Comment: Speci men Type: SWABOrdering Facility: [facility] Address: [address] [place] [address] Performed By: #### 3 6902-5, SILAS ####[facility] [id number] [place] [address] [place] TRICHOMONAS VAGINALIS NAATon 07-07-2024 T. vaginalis DNA ABRIL+probe Ql (Unsp spec) Not detected Normal Not detected [facility] Comment on above: Order Comment: Speci men Type: SWABOrdering Facility: [facility] Address: [address] [place] [address] Performed By: #### 3 6902-5, SILAS ####[facility] [id number] [place] [address] [place] CBC W Auto Differential pane l (Bld)on 09-30-2022 Basophils (Bld) [#/Vol] 0.04 10*3/uL <0.11 k/uL [facility] Basophils/100 WBC (Bld) 0.7 % [facility] Differential cell count method Nom (Bld) Auto [facility] Eosinophils (Bld) [#/Vol] 0.18 10*3/uL <0.46 k/uL [facility] Eosinophils/100 WBC (Bld) 3.0 % [facility] Erythrocyte distribution width (RBC) [Ratio] 13.3 % 11.5 - 15.0 % [facility] Hematocrit (Bld) [Volume fraction] 38.3 % 36.0 - 46.0 % [facility] Hemoglobin (Bld) [Mass/Vol] 12.3 g/dL 11.5 - 15.5 g/dL [facility] Immature granulocytes (Bld) [#/Vol] <0.10 k/uL [facility] Immature granulocytes/100 WBC (Bld) 0.3 % [facility] Lymphocytes (Bld) [#/Vol] 1.95 10*3/uL 1.00 - 4.00 k/uL [facility] Lymphocytes/100 WBC (Bld) 32.4 % [facility] MCH (RBC) [Entitic mass] 28.4 pg 26.0 - 34.0 pg [facility] MCHC (RBC) [Mass/Vol] 32.1 g/dL 30.5 - 36.0 g/dL [facility] MCV (RBC) [Entitic vol] 88.5 fL 80.0 - 100.0 fL [facility] Monocytes (Bld) [#/Vol] 0.44 10*3/uL <0.87 k/uL [facility] Monocytes/100 WBC (Bld) 7.3 % [facility] Neutrophils (Bld) [#/Vol] 3.39 10*3/uL 1.45 - 7.50 k/uL [facility] Neutrophils/100 WBC (Bld) 56.3 % [facility] Nucleated RBC (Bld) [#/Vol] <0.01 k/uL [facility] Nucleated RBC/100 WBC (Bld) [Ratio] 0.0 /100 WBC [facility] Platelet mean volume (Bld) [Entitic vol] 9.9 fL 9.0 - 12.7 fL [facility] Platelets (Bld) [#/Vol] 265 10*3/uL 150 - 400 k/uL [facility] RBC (Bld) [#/Vol] 4.33 10*6/uL 3.90 - 5.20 m/uL [facility] WBC (Bld) [#/Vol] 6.02 10*3/uL 3.70 - 11. 00 k/uL [facility] Vital Signs Date Time Vital Sign Value Performing Clinician Yamil choudhary 01-03-2025 12:56-0400 Body mass index (BMI) [Ratio] 37.13 kg/m2 Tracie Kovacs MD Work Phone: [facility] 01-03-2025 12:56-0400 Body weight 95.07 kg Tracie Kovacs MD Work Phone: [facility] 01-03-2025 12:56-0400 Diastolic blood pressure 77 mm[Hg] Tracie Kovacs MD Work Phone: [facility] 01-03-2025 12:56-0400 Systolic blood pressure 113 mm[Hg] Tracie Kovacs MD Work Phone: [facility] 12-27-2024 09:20-0400 Diastolic blood pressure 60 mm[Hg] Chaya Fermin COMMUNITY DEVELOPMENT MANAGER.CNM Work Phone: [facility] 12-27-2024 09:20-0400 Systolic blood pressure 106 mm[Hg] Chaya Fermin COMMUNITY DEVELOPMENT MANAGER.CNM Work Phone: [facility] 12-06-2024 08:09-0400 Body mass index (BMI) [Ratio] 36.49 kg/m2 Chaya Fermin COMMUNITY DEVELOPMENT MANAGER.CNM Work Phone: [facility] 12-06-2024 08:09-0400 Body weight 93.44 kg Chaya Fermin COMMUNITY DEVELOPMENT MANAGER.CNM Work Phone: [facility] 12-06-2024 08:09-0400 Diastolic blood pressure 70 mm[Hg] Chaya Fermin COMMUNITY DEVELOPMENT MANAGER.CNM Work Phone: [facility] 12-06-2024 08:09-0400 Systolic blood pressure 96 mm[Hg] Chaya Fermin COMMUNITY DEVELOPMENT MANAGER.CNM Work Phone: [facility] 11-24-2024 11:08-0400 Body mass index (BMI) [Ratio] 35.96 kg/m2 Chaya Fermin COMMUNITY DEVELOPMENT MANAGER.CNM Work Phone: [facility] 11-24-2024 11:08-0400 Body weight 92.08 kg Chaya Fermin COMMUNITY DEVELOPMENT MANAGER.CNM Work Phone: [facility] 11-24-2024 11:08-0400 Diastolic blood pressure 68 mm[Hg] Chaya Fermin COMMUNITY DEVELOPMENT MANAGER.CNM Work Phone: [facility] 11-24-2024 11:08-0400 Systolic blood pressure 108 mm[Hg] Chaya Fermin COMMUNITY DEVELOPMENT MANAGER.CNM Work Phone: [facility] 11-08-2024 08:00-0400 Body mass index (BMI) [Ratio] 36.14 kg/m2 Chaya Fermin COMMUNITY DEVELOPMENT MANAGER.CNM Work Phone: [facility] 11-08-2024 08:00-0400 Body weight 92.53 kg Chaya Fermin COMMUNITY DEVELOPMENT MANAGER.CNM Work Phone: [facility] 11-08-2024 08:00-0400 Diastolic blood pressure 68 mm[Hg] Chaya Fermin COMMUNITY DEVELOPMENT MANAGER.CNM Work Phone: [facility] 11-08-2024 08:00-0400 Systolic blood pressure 108 mm[Hg] Chaya Fermin COMMUNITY DEVELOPMENT MANAGER.CNM Work Phone: [facility] 10-25-2024 11:20-0400 Body mass index (BMI) [Ratio] 36.31 kg/m2 Chaya Fermin COMMUNITY DEVELOPMENT MANAGER.CNM Work Phone: [facility] 10-25-2024 11:20-0400 Body weight 92.99 kg Chaya Fermin COMMUNITY DEVELOPMENT MANAGER.CNM Work Phone: [facility] 10-25-2024 11:20-0400 Diastolic blood pressure 66 mm[Hg] Chaya Fermin COMMUNITY DEVELOPMENT MANAGER.CNM Work Phone: [facility] 10-25-2024 11:20-0400 Systolic blood pressure 112 mm[Hg] Chaya Fermin COMMUNITY DEVELOPMENT MANAGER.CNM Work Phone: [facility] 09-27-2024 11:19-0400 Body mass index (BMI) [Ratio] 36.31 kg/m2 Chaya Fermin COMMUNITY DEVELOPMENT MANAGER.CNM Work Phone: [facility] 09-27-2024 11:19-0400 Body weight 92.99 kg Chaya Fermin COMMUNITY DEVELOPMENT MANAGER.CNM Work Phone: [facility] 09-27-2024 11:19-0400 Diastolic blood pressure 62 mm[Hg] Chaya Fermin COMMUNITY DEVELOPMENT MANAGER.CNM Work Phone: [facility] 09-27-2024 11:19-0400 Systolic blood pressure 108 mm[Hg] Chaya Fermin COMMUNITY DEVELOPMENT MANAGER.CNM Work Phone: [facility] 08-30-2024 09:10-0400 Body mass index (BMI) [Ratio] 35.96 kg/m2 Chaya Fermin COMMUNITY DEVELOPMENT MANAGER.CNM Work Phone: [facility] 08-30-2024 09:10-0400 Body weight 92.08 kg Chaya Fermin COMMUNITY DEVELOPMENT MANAGER.CNM Work Phone: [facility] 08-30-2024 09:10-0400 Diastolic blood pressure 72 mm[Hg] Chaya Fermin COMMUNITY DEVELOPMENT MANAGER.CNM Work Phone: [facility] 08-30-2024 09:10-0400 Systolic blood pressure 110 mm[Hg] Chaya Fermin COMMUNITY DEVELOPMENT MANAGER.CNM Work Phone: [facility] 08-02-2024 12:58-0400 Body mass index (BMI) [Ratio] 35.61 kg/m2 Chaya Fermin COMMUNITY DEVELOPMENT MANAGER.CNM Work Phone: [facility] 08-02-2024 12:58-0400 Body weight 91.17 kg Chaya Fermin COMMUNITY DEVELOPMENT MANAGER.CNM Work Phone: [facility] 08-02-2024 12:58-0400 Diastolic blood pressure 66 mm[Hg] Chaya Fermin COMMUNITY DEVELOPMENT MANAGER.CNM Work Phone: [facility] 08-02-2024 12:58-0400 Systolic blood pressure 114 mm[Hg] Chaya Fermin COMMUNITY DEVELOPMENT MANAGER.CNM Work Phone: [facility] 07-12-2024 10:17-0500 Body mass index (BMI) [Ratio] 36.31 kg/m2 Chaya Fermin COMMUNITY DEVELOPMENT MANAGER.CNM Work Phone: [facility] 07-12-2024 10:17-0500 Body weight 92.99 kg Chaya Fermin COMMUNITY DEVELOPMENT MANAGER.CNM Work Phone: [facility] 07-12-2024 10:17-0500 Diastolic blood pressure 74 mm[Hg] Chaya Fermin COMMUNITY DEVELOPMENT MANAGER.CNM Work Phone: [facility] 07-12-2024 10:17-0500 Systolic blood pressure 110 mm[Hg] Chaya Fermin COMMUNITY DEVELOPMENT MANAGER.CNM Work Phone: [facility] 07-07-2024 13:10-0500 Body height 160 cm Chayadario Fermin COMMUNITY DEVELOPMENT MANAGER.CNM Work Phone: [facility] 07-07-2024 13:10-0500 Body mass index (BMI) [Ratio] 36.14 kg/m2 Chaya Zander COMMUNITY DEVELOPMENT MANAGER.CNM Work Phone: [facility] 07-07-2024 13:10-0500 Body weight 92.53 kg Chayadario Fermin COMMUNITY DEVELOPMENT MANAGER.CNM Work Phone: [facility] 07-07-2024 13:10-0500 Diastolic blood pressure 78 mm[Hg] Chaya Zander COMMUNITY DEVELOPMENT MANAGER.CNM Work Phone: [facility] 07-07-2024 13:10-0500 Systolic blood pressure 110 mm[Hg] Chaya Zander COMMUNITY DEVELOPMENT MANAGER.CNM Work Phone: [facility] 01-09-2023 07:05-0400 Body weight 80.29 kg Jasmin Boyd COMMUNITY DEVELOPMENT MANAGER.FUSING MACHINE OPERATOR Work Phone: [facility] 01-09-2023 07:05-0400 Diastolic blood pressure 76 mm[Hg] Jasmin Priesthojoseph COMMUNITY DEVELOPMENT MANAGER.FUSING MACHINE OPERATOR Work Phone: [facility] 01-09-2023 07:05-0400 Heart rate 78 /min Jasmin Boyd COMMUNITY DEVELOPMENT MANAGER.FUSING MACHINE OPERATOR Work Phone: [facility] 01-09-2023 07:05-0400 Respiratory rate 16 /min Jasmin Boyd COMMUNITY DEVELOPMENT MANAGER.FUSING MACHINE OPERATOR Work Phone: [facility] 01-09-2023 07:05-0400 SaO2% (BldA) [Mass fraction] 98 % Jasmin Boyd COMMUNITY DEVELOPMENT MANAGER.FUSING MACHINE OPERATOR Work Phone: [facility] 01-09-2023 07:05-0400 Systolic blood pressure 108 mm[Hg] Jasmin Boyd COMMUNITY DEVELOPMENT MANAGER.FUSING MACHINE OPERATOR Work Phone: [facility] 09-30-2022 08:11-0400 Body temperature 97.39 [degF] Ze Pugh DO Work Phone: [facility] 09-30-2022 08:11-0400 Body weight 76.2 kg Ze Pugh DO Work Phone: [facility] 09-30-2022 08:11-0400 Diastolic blood pressure 60 mm[Hg] Ze Pugh DO Work Phone: [facility] 09-30-2022 08:11-0400 Heart rate 80 /min Ze Pugh DO Work Phone: [facility] 09-30-2022 08:11-0400 Respiratory rate 12 /min Ze Pugh DO Work Phone: [facility] 09-30-2022 08:11-0400 Systolic blood pressure 100 mm[Hg] Ze Pugh DO Work Phone: [facility] 05-28-2022 16:33-0500 Diastolic blood pressure 72 mm[Hg] Ze Pugh DO Work Phone: [facility] 05-28-2022 16:33-0500 Systolic blood pressure 104 mm[Hg] Ze Pugh DO Work Phone: [facility] 05-28-2022 16:12-0500 Body temperature 96.6 [degF] Ze Pugh DO Work Phone: [facility] 05-28-2022 16:12-0500 Body weight 76.2 kg Ze Pugh DO Work Phone: [facility] 05-28-2022 16:12-0500 Heart rate 76 /min Ze Pugh DO Work Phone: [facility] 05-28-2022 16:12-0500 Respiratory rate 12 /min Ze Pugh DO Work Phone: [facility] 05-14-2022 09:21-0500 Body height 160 cm Shyanne Reaper COMMUNITY DEVELOPMENT MANAGER.FUSING MACHINE OPERATOR Work Phone: [facility] 05-14-2022 09:21-0500 Body weight 76.84 kg Shyanne Reaper COMMUNITY DEVELOPMENT MANAGER.FUSING MACHINE OPERATOR Work Phone: [facility] 05-14-2022 09:21-0500 Diastolic blood pressure 82 mm[Hg] Shyanne Reaper COMMUNITY DEVELOPMENT MANAGER.FUSING MACHINE OPERATOR Work Phone: [facility] 05-14-2022 09:21-0500 Systolic blood pressure 122 mm[Hg] Shyanne Reaper COMMUNITY DEVELOPMENT MANAGER.FUSING MACHINE OPERATOR Work Phone: [facility] 04-26-2022 13:36-0500 Body weight 77.11 kg Ze Pugh DO Work Phone: [facility] 04-26-2022 13:36-0500 Diastolic blood pressure 78 mm[Hg] Ze Pugh DO Work Phone: [facility] 04-26-2022 13:36-0500 Heart rate 68 /min Ze Pugh DO Work Phone: [facility] 04-26-2022 13:36-0500 Respiratory rate 16 /min Ze Pugh DO Work Phone: [facility] 04-26-2022 13:36-0500 SaO2% (BldA) [Mass fraction] 100 % Ze Pugh DO Work Phone: [facility] 04-26-2022 13:36-0500 Systolic blood pressure 122 mm[Hg] Ze Pugh DO Work Phone: [facility] 02-28-2022 09:11-0400 Body height 162.6 cm Benita Wynn COMMUNITY DEVELOPMENT MANAGER.FUSING MACHINE OPERATOR Work Phone: [facility] 02-28-2022 09:11-0400 Body temperature 98.01 [degF] Benita Wynn COMMUNITY DEVELOPMENT MANAGER.FUSING MACHINE OPERATOR Work Phone: [facility] 02-28-2022 09:11-0400 Body weight 73.03 kg Benita Wynn COMMUNITY DEVELOPMENT MANAGER.FUSING MACHINE OPERATOR Work Phone: [facility] 02-28-2022 09:11-0400 Heart rate 97 /min Benita Wynn COMMUNITY DEVELOPMENT MANAGER.FUSING MACHINE OPERATOR Work Phone: [facility] 02-28-2022 09:11-0400 Respiratory rate 16 /min Benita Wynn COMMUNITY DEVELOPMENT MANAGER.FUSING MACHINE OPERATOR Work Phone: [facility] 02-28-2022 09: SaO2% (BldA) [Mass fraction] 98 % Benita Tianna HERNANDEZ Work Phone: [facility] Encounters Encounter Date Encounter Type Care Provider Facility Start: 01-03-2025 End: 01-03-2025 Patient encounter procedure Tracie Kovacs MD Work Phone: OB/Gynecology Comment on above: 38 weeks gestation o f (HCC) (Primary Dx); Group beta Strep positive; Supervision of high risk in third trimester (HCC); Surrogate (HCC); Diet controlled gestational diabetes mellitus (GDM) in third trimester ([facility]) Start: 01-03-2025 End: 01-03-2025 ambulatory CHAYA FERMIN Facility:[facility] Start: 12-27-2024 End: 12-27-2024 Patient encounter procedure Whi Tech 1 Hydraulic Press Tender [facility] Comment on [...] Start: 12-27-2024 End: 12-27-2024 ambulatory ZE PUGH Facility:[facility] Start: 12-06-2024 End: 12-06-2024 E-mail encounter from [...] (HCC) Start: 11-24-2024 End: 01-04-2025 ambulatory CHAYA ZANDER Facility:[facility] Comment on above: Insurance pre author ization [...] Start: 11-08-2024 End: 11-08-2024 ambulatory ZE PUGH Facility:[facility] Start: 11-01-2024 End: 11-01-2024 E-mail encounter from caregiver Ciarra Hubbard RN Work Phone: Diabetic Education [facility] Start: 11-01-2024 End: 11-01-2024 Nursing evaluation of patient and report Ciarra Hubbard RN Work Phone: [facility] Comment on above: Diet controlled gest ational diabetes mellitus (GDM) in third trimester (HCC) Start: 11-01-2024 End: 11-01-2024 ambulatory Ciarra Hubbard RN Work Phone: [facility] Comment on above: Gestational diabetes booklets Start: 10-27-2024 End: 12-27-2024 Follow-up encounter Chaya Fermin APRN.CNM Work Phone: OB/Gynecology Start: 10-27-2024 End: 10-27-2024 ambulatory ZE PUGH Facility:[facility] Start: 10-26-2024 End: 12-26-2024 Follow-up encounter Chaya Fermin APRN.CNM Work Phone: OB/Gynecology Start: 10-25-2024 End: 12-25-2024 Follow-up encounter Nelly Solorzano MD Work Phone: OB/Gynecology Start: 10-25-2024 End: 10-25-2024 Patient encounter procedure Whi [employer] 1 Hydraulic Press Tender [facility] Comment on above: Encounter for ultras ound to check growth (HCC) (Primary Dx); Obesity affecting in third trimester, unspecified obesity type (HCC); 28 weeks gestation of (HCC) resulting from in vitro fertilization in third trimester (HCC) (Primary Dx); Supervision of high risk in third trimester (HCC); 28 weeks gestation of (HCC) Start: 10-25-2024 End: 10-25-2024 ambulatory ZE PUGH Facility:[facility] Start: 10-17-2024 End: 10-19-2024 Refill Laine Mccollum APRN.CNP Work Phone: Neurology Comment on above: Refill Request Start: 10-16-2024 End: 10-16-2024 ambulatory Marybeth Escamilla Facility:[facility] Start: 09-27-2024 End: 11-27-2024 Follow-up encounter Nelly [...] Phone: OB/Gynecology Comment on above: Request Outside [facility] Records Start: 08-30-2024 End: 08-30-2024 ambulatory CHAYA FERMIN Facility:[facility] Start: 08-30-2024 End: 08-30-2024 Patient encounter procedure Whi Tech 1 Hydraulic Press Tender [facility] Comment on above: Encounter for anatomic survey (HCC) (Primary Dx); 20 weeks gestation of (HCC); resulting from in vitro fertilization in second trimester (HCC) Supervision of other high risk pregnancies, second trimester (HCC) (Primary Dx); Anxiety and depression; Surrogate (HCC); 20 weeks gestation of (HCC); 12 weeks gestation of (HCC) Start: 08-03-2024 End: 08-03-2024 ambulatory Laine Mccollum DAVID Work Phone: Neurology Comment on above: Migraine without aur a and without status migrainosus, not intractable (Primary Dx) Start: 08-03-2024 End: 08-03-2024 Telemedicine consultation with patient Laine Mccollum DAVID Work Phone: Neurology Start: 08-02-2024 End: 08-02-2024 ambulatory ZE PUGH Facility:[facility] Start: 08-02-2024 End: 08-02-2024 Patient encounter procedure Chaya Fermin APRN.CNM Work Phone: OB/Gynecology Comment on above: Supervision of other high risk pregnancies, second trimester (Primary Dx); 16 weeks gestation of ; Surrogate ; Anxiety and depression; History of PCOS; Exposure to genital herpes; resulting from in vitro fertilization in first trimester; Headaches Start: 07-22-2024 End: 2024 Telephone encounter Ze Pugh DO Work Phone: [facility] [place] Comment on above: Refill Request Start: 07-12-2024 End: 07-12-2024 ambulatory [facility] Facility:[facility] Start: 07-12-2024 End: 07-12-2024 Patient encounter procedure Whi Tech 1 Hydraulic Press Tender [facility] Comment on above: Encounter for antena maria de jesus screening for malformation using ultrasound (Primary Dx); 13 weeks gestation of Supervision of other high risk , antepartum (Primary Dx); 13 weeks gestation of ; Anxiety and depression; resulting from in vitro fertilization in first trimester; Surrogate ; History of PCOS Start: 07-12-2024 End: 07-12-2024 [facility] Facility:[facility] Start: 07-08-2024 End: 09-07-2024 Follow-up encounter Kasandra Guo APRN.CNP Work Phone: OB/Gynecology Start: 07-07-2024 End: 07-07-2024 ambulatory ZE PUGH Facility:[facility] Start: 07-07-2024 End: 07-07-2024 Patient encounter procedure [...] End: 04-30-2023 Patient encounter procedure Lolis Patrick APRN.FUSING MACHINE OPERATOR Work Phone: [facility] Comment on above: Procedure not karlo d out (Primary Dx) Start: 04-29-2023 End: 04-29-2023 ambulatory Neda Carr COMMUNITY DEVELOPMENT MANAGER.FUSING MACHINE OPERATOR Work Phone: Telemedicine Comment on above: Treatment not availa ble (Primary Dx) Start: 02-05-2023 ambulatory Jasmin Arnaldojoseph COMMUNITY DEVELOPMENT MANAGER.FUSING MACHINE OPERATOR Work Phone: [facility] Comment on above: Video call not worki ng Start: 01-09-2023 End: 01-09-2023 Patient encounter procedure Jasmin Boyd COMMUNITY DEVELOPMENT MANAGER.FUSING MACHINE OPERATOR Work Phone: [facility] Comment on above: Wellness examination (Primary Dx); Anxiety and depression; PCOS (polycystic ovarian syndrome); Other migraine without status migrainosus, not intractable; Situational insomnia; Vitamin D deficiency; Hyperlipidemia LDL goal <100; Screening-pulmonary TB Start: 01-09-2023 End: 01-09-2023 Patient encounter status Jasmin Boyd COMMUNITY DEVELOPMENT MANAGER.FUSING MACHINE OPERATOR Work Phone: [facility] Work Phone: Start: 10-29-2022 Refill Ze garcia DO Work Phone: [facility] Comment on above: Refill Request Start: 10-03-2022 Telephone encounter Ze horton DO Work Phone: [facility] Comment on above: Results Start: 09-30-2022 End: 09-30-2022 Patient encounter procedure Ze Pugh DO Work Phone: [facility] [place] Comment on above: Anxiety and depressi on (Primary Dx); Situational insomnia; Other migraine without status migrainosus, not intractable; Fatigue, unspecified type; PCOS (polycystic ovarian syndrome); Well adult exam Start: 09-30-2022 End: 09-30-2022 Patient encounter status Ze Pugh DO Work Phone: [facility] [place] Start: 08-16-2022 End: 03-24-2023 Subsequent hospital visit by physician Mri 7 Radio Main Q (I-Stat/1.5t/3t) Work Phone: MRI Q Comment on above: Primary dysmenorrhea [N94.4] Start: 06-08-2022 Refill Ze garcia DO Work Phone: [facility] [place] Comment on above: Refill Request Start: 05-28-2022 End: 05-28-2022 Patient encounter procedure Ze Pugh DO Work Phone: [facility] [place] Comment on above: Anxiety and [...] encounter procedure Ze Pugh DO Work Phone: [facility] Comment on above: Anxiety and depressi on (Primary Dx) Start: 03-26-2022 Telephone encounter Shyanne mota APRN.CNP Work Phone: Gynecology Comment on above: 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 [employer] - [employer] ther (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/) Start: 03-12-2022 End: 03-12-2022 Manual pelvic examination Chaya Fermin APRN.CNM Work Phone: OB/Gynecology Comment on above: Pelvic pain in femal e (Primary Dx); Dysmenorrhea Start: 03-12-2022 End: 03-12-2022 Telemedicine consultation with patient Chaya Fermin APRN.CNM Work Phone: [place] [facility] Start: 02-28-2022 End: 02-28-2022 Patient encounter procedure Benita Wynn APRN.CNP Work Phone: [facility] Comment on above: Corneal irritation o f right eye (Primary Dx) Start: 12-08-2021 Refill Ann-Marie Torres APR N.FUSING MACHINE OPERATOR Work Phone: Gastroenterology Comment on above: Refill Request Start: 12-07-2021 Refill Ann-Marie Torres APR N.FUSING MACHINE OPERATOR Work Phone: Gastroenterology Comment on above: Refill Request Start: 12-07-2021 Refill Ann-Marie Torres APR N.FUSING MACHINE OPERATOR Work Phone: Gastroenterology Comment on above: Refill Request Start: 11-03-2021 Refill Jasmin Tannhof COMMUNITY DEVELOPMENT MANAGER.FUSING MACHINE OPERATOR Work Phone: [facility] [place] Comment on above: Refill Request Start: 10-05-2021 Refill Jasmin Tannhof COMMUNITY DEVELOPMENT MANAGER.FUSING MACHINE OPERATOR Work Phone: [facility] [place] Comment on above: Refill Request Start: 10-01-2021 ambulatory Perla mota OD Work Phone: Ophthalmology Comment on above: Contact trials Start: 09-13-2021 Phys/qhp online evaluation & management service Roxana De Jesus COMMUNITY DEVELOPMENT MANAGER.FUSING MACHINE OPERATOR Work Phone: Telemedicine Comment on above: Cough (Primary Dx) Start: 08-31-2021 End: 08-31-2021 Patient encounter procedure Perla Bailey OD Work Phone: Ophthalmology Comment on above: Myopia, bilateral (P rimary Dx); Dry eye syndrome of bilateral lacrimal glands Start: 08-31-2021 Phys/qhp online evaluation & management service Brayan Rossi COMMUNITY DEVELOPMENT MANAGER.FUSING MACHINE OPERATOR Work Phone: Telemedicine Comment on above: Acute rhinosinusitis (Primary Dx) Start: 08-16-2021 Refill Ann-Marie Torres APR N.FUSING MACHINE OPERATOR Work Phone: Gastroenterology Comment on above: Refill Request Start: 02-28-2021 Telephone encounter Ze horton DO Work Phone: [facility] [place] Comment on above: UTI Start: 09-18-2017 End: 06-22-2018 Patient requested procedure Perla Bailey OD Work Phone: [facility] Procedures Date Procedure Procedure Detail Performing Clinician [...] Speci men Type: BLOOD SPECIMEN Ordering Facility: [facility] Address: [address] [place] [address] Performed By: #### T SPN #### CC MAIN BLOOD BANK [facility] [id number] [address] [place] [address] [place] [address] [place] Start: 10-25-2024 Us [...] Detail Author Start: 08-03-2029 Urine microalbumin profile [facility] Start: 03-01-2027 HPV TESTING HPV TESTING [facility] Start: 03-01-2027 PAP TESTING PAP TESTING [facility] Start: 03-01-2027 Screening for malignant neoplasm of cervix Cervical Cancer Screening [facility] Start: 01-05-2025 End: 01-05-2025 Patient encounter procedure 01/05/2025 11:15 AM EDT Routine Office Visit OB/Gynecology [address] [place] [address] Chaya Fermin APRN.CNM [address] [place] [address] OB OB/Gynecology Comment on above: OB Start: 01-03-2025 End: 01-03-2025 Patient encounter procedure 01/03/2025 2:50 PM EDT Routine Office Visit OB/Gynecology [address] [place] [address] Tracie Kovacs MD [address] [place] [address] NST/OB OB/Gynecology Comment on above: NST/OB Start: 01-03-2025 End: 01-03-2025 Patient encounter procedure 01/03/2025 12:45 PM EDT Office Visit [facility] Ophthalmology [address] [place] [address] Perla Bailey, OD [address] [place] [address] complete with cl eval Ophthalmology Comment on [...] Office Visit OB/Gynecology [address] [place] [address] Chaya Fermin APRN.CN [address] [place] [address] OB OB/Gynecology Comment on above: OB Start: 11-29-2024 End: 11-29-2024 Follow-up encounter 11/29/2024 9:00 AM EDT [facility] Diabetic Education [facility] [address] [id number] [place] [address] [place] [address] 1 mo GDM follow up Diabetic Education [facility] Comment on above: 1 mo GDM follow up Start: 11-25-2024 End: 11-25-2024 Nutrition therapy 11/25/2024 10:30 AM EDT [facility] NUTRITION SERVICES [address] [place] [address] Eduarda Barboza, RD [address] [place] [address] None [facility] NUTRITION SERVICES Comment on above: None Start: 11-24-2024 End: 02-23-2025 Ferritin [Mass/volume] in Serum or Plasma [facility] Comment on above: Expected: 11/24/2024, Expires: Start: 11-24-2024 End: 02-23-2025 Iron and Iron binding capacity panel - Serum or Plasma [facility] Work Phone: Comment on above: Expected: 11/24/2024, Expires: Start: 11-24-2024 End: 11-24-2024 Patient encounter procedure Maternal Medicine Comment on above: Growth OB Start: 11-24-2024 End: 11-24-2024 ambulatory 11/24/2024 10:00 AM EDT Results Only [place] Gud[facility] Laboratory [address] [place] [address] [place] [facility] [facility] Start: 11-16-2024 End: 11-16-2024 Patient encounter procedure 11/16/2024 2:00 PM EDT Routine Office Visit Maternal Medicine [address] [place] [address] growth [facility]aternal Medicine Comment on above: growth Start: 11-08-2024 End: 02-07-2025 Hepatitis B virus surface Ag [Presence] in Serum HEPATITIS B SURFACE ANTIGEN Lab Routine Supervision of high risk in third trimester (HCC) 30 weeks gestation of (HCC) Expected: 11/08/2024, Expires: 02/07/2025 [facility] Comment on above: Expected: 11/08/2024, Expires: Start: 11-08-2024 End: 02-07-2025 HIV 1+2 Ab [Presence] in Serum or Plasma by Immunoassay HIV 1/2 COMBO WITH REFLEX TO DIFFERENTIATION Lab Routine Supervision of high risk in third trimester (HCC) 30 weeks gestation of (HCC) Expected: 11/08/2024, Expires: 02/07/2025 [facility] Work Phone: Comment on above: Expected: 11/08/2024, Expires: Start: 11-08-2024 End: 02-07-2025 RUBELLA IGG ANTIBODY RUBELLA IGG ANTIBODY Lab Routine Supervision of high risk in third trimester (HCC) 30 weeks gestation of (HCC) Expected: 11/08/2024, Expires: 02/07/2025 [facility] Comment on above: Expected: 11/08/2024, Expires: Start: 11-08-2024 End: 11-08-2024 Patient encounter procedure 11/08/2024 8:00 AM EDT Routine Office Visit OB/Gynecology [address] [place] [address] Chaya Fermin APRN.CNM [address] [place] [address] OB OB/Gynecology Comment on above: OB Start: 10-27-2024 End: 10-27-2024 ambulatory 10/27/2024 7:15 AM EDT Results Only [place] Grahmawn [facility] Laboratory [address] [place] [address] Abnormal glucose in , antepartum ([facility]) [O99.810] [facility] Laboratory Comment on above: Abnormal glucose in , antepartu m ([facility]) [O99.810] Start: 10-25-2024 End: 10-25-2024 Patient encounter procedure Maternal Medicine Comment on above: Growth Start: 10-25-2024 End: 10-25-2024 ambulatory 10/25/2024 10:15 AM EDT Results Only [place] Grahamwn [facility] Laboratory [address] [place] [address] Glucose Test [place] [facility] Laboratory Comment on above: Glucose Test Start: 09-27-2024 End: 12-27-2024 ANEMIA REFLEX PANEL ANEMIA REFLEX PANEL Lab Routine Supervision of other high risk pregnancies, second trimester (HCC) Surrogate (HCC) Anxiety and depression 24 weeks gestation of (HCC) Expected: 09/27/2024, Expires: 12/27/2024 [facility] Comment on above: Expected: 09/27/2024, Expires: Start: 09-27-2024 End: 09-27-2025 GESTATIONAL GLUCOSE SCREEN, 1-HOUR, 50 GRAM, NON-FASTING GESTATIONAL GLUCOSE SCREEN, 1-HOUR, 50 GRAM, NON-FASTING Lab Routine Supervision of other high risk pregnancies, second trimester (HCC) Surrogate (HCC) Anxiety and depression 24 weeks gestation of ([facility]) Screening for diabetes mellitus Expected: 09/27/2024, Expires: 09/27/2025 [facility] Work Phone: Comment on above: Expected: 09/27/2024, Expires: Start: 09-27-2024 End: 09-27-2025 SYPHILIS TREPONEMAL W/REFLEX SYPHILIS TREPONEMAL W/REFLEX Lab Routine Supervision of other high risk pregnancies, second trimester (HCC) Surrogate (HCC) Anxiety and depression 24 weeks gestation of (HCC) Expected: 09/27/2024, Expires: 09/27/2025 [facility] Comment on above: Expected: 09/27/2024, Expires: Start: 09-27-2024 End: 12-27-2024 TYPE + SCREEN TYPE + SCREEN Blood Bank Routine Supervision of other high risk pregnancies, second trimester (HCC) Surrogate (HCC) Anxiety and depression 24 weeks gestation of (HCC) Expected: 09/27/2024, Expires: 12/27/2024 [facility] Comment on above: Expected: 09/27/2024, Expires: Start: 09-27-2024 End: 09-27-2024 ambulatory 09/27/2024 9:00 AM EDT Procedure Pediatric Cardiology [address] [place] [address] Moses Caruso MD [address] [place], [place] [id number] single 2Supervision of other high risk pregnancies, second trimester (HCC) [O09.892] Pediatric Cardiology Comment on above: single 2Supervision of other high risk pregnancies, second trimester (HCC) [O09.892] Start: 09-27-2024 End: 09-27-2024 Patient encounter procedure OB/Gynecology Comment on above: OB single Start: 08-30-2024 End: 08-30-2024 Patient encounter procedure Maternal Medicine Comment on above: Anatomy Anatomy/OB Start: 08-03-2024 End: 08-03-2024 ambulatory 08/03/2024 7:00 AM EDT [facility] Neurology [address] [address] Laine Mccollum APRN.FUSING MACHINE OPERATOR [address] [address] Supervision of other high risk pregnancies, second trimester [O09.892]; Other migraine without status migrainosus, not intractable [G43.809] Neurology Comment on above: Supervision of other high risk pregnanci es, second trimester [O09.892]; Other migraine without status migrainosus, not intractable [G43.809] Start: 08-02-2024 End: 08-02-2024 Patient encounter procedure 08/02/2024 1:00 PM EDT Routine Office Visit OB/Gynecology [address] [place] [address] Chaya Fermin APRN.CNM [address] [place], [place] [address] OB OB/Gynecology Comment on above: OB Start: 07-07-2024 End: 07-07-2025 OBSTETRIC ULTRASOUND WHI OBSTETRIC ULTRASOUND WHI Anc Imaging Routine Supervision of other high risk pregnancies, second trimester 12 weeks gestation of Expected: 07/07/2024, Expires: 07/07/2025 [facility] Work Phone: Comment on above: Expected: 07/07/2024, Expires: Start: 01-25-2024 Covid-19 Vaccine ( season) Covid-19 Vaccine ( season) [facility] Start: 01-10-2024 HEPATITIS B (1 of 3 - 3-dose series) HEPATITIS B (1 of 3 - 3-dose series) [facility] Comment on above: Postponed from 1990 (Declined at t his time) Start: 01-10-2024 Hepatitis B Vaccine (1 of 3 - 19+ 3-dose series) Hepatitis B Vaccine (1 of 3 - 19+ 3-dose series) [facility] Comment on above: Postponed from 2009 (Declined at t his time) Start: 01-10-2024 Hepatitis B Vaccine (1 of 3 - 3-dose series) Hepatitis B Vaccine (1 of 3 - 3-dose series) [facility] Comment on above: Postponed from 1990 (Declined at t his time) Start: 10-01-2023 COVID-19 VACCINE (#1) COVID-19 VACCINE (#1) [facility] Comment on above: Postponed from 02/06/1991 (Declined at t his time) Start: 01-24-2023 Covid-19 Vaccine (2022- season) Covid-19 Vaccine ( season) [facility] Start: 01-09-2023 End: 03-11-2023 25-hydroxyvitamin D3 [Mass/volume] in Serum or Plasma [facility] Work Phone: Comment on above: Expected: 01/09/2023, Expires: Start: 01-09-2023 End: 03-11-2023 BLOOD TB SCREEN [facility] Work Phone: Comment on above: Expected: 01/09/2023, Expires: Start: 01-09-2023 End: 03-11-2023 Lipid 1996 panel - Serum or Plasma [facility] Work Phone: Comment on above: Expected: 01/09/2023, Expires: Start: 09-30-2022 End: 11-30-2022 25-hydroxyvitamin D3 [Mass/volume] in Serum or Plasma [facility] Work Phone: Comment on above: Expected: 09/30/2022, Expires: Start: 09-30-2022 End: 11-30-2022 Cobalamin (Vitamin B12) [Mass/volume] in Serum or Plasma [facility] Work Phone: Comment on above: Expected: 09/30/2022, Expires: Start: 09-30-2022 End: 11-30-2022 Comprehensive metabolic 2000 panel - Serum or Plasma [facility] Work Phone: Comment on above: Expected: 09/30/2022, Expires: 3 Start: 09-30-2022 End: 11-30-2022 Hemoglobin A1c in Blood [facility] Work Phone: Comment on above: Expected: 09/30/2022, Expires: 3 Start: 09-30-2022 End: 11-30-2022 Insulin [Units/volume] in Serum or Plasma [facility] Work Phone: Comment on above: Expected: 09/30/2022, Expires: 3 Start: 09-30-2022 End: 11-30-2022 Lipid 1996 panel - Serum or Plasma [facility] Work Phone: Comment on above: Expected: 09/30/2022, Expires: 3 Start: 09-30-2022 End: 11-30-2022 Thyrotropin [Units/volume] in Serum or Plasma [facility] Work Phone: Comment on above: Expected: 09/30/2022, Expires: 3 Start: 09-30-2022 End: 11-30-2022 Thyroxine (T4) free [Mass/volume] in Serum or Plasma [facility] Work Phone: Comment on above: Expected: 09/30/2022, Expires: 3 Start: 09-30-2022 End: 11-30-2022 Triiodothyronine (T3) Free [Mass/volume] in Serum or Plasma [facility] Work Phone: Comment on above: Expected: 09/30/2022, Expires: 3 Start: 09-18-2022 PAP TESTING PAP TESTING [facility] Start: 05-26-2021 DEPRESSION ASSESSMENT DEPRESSION ASSESSMENT [facility] Start: 08-09-2020 HPV TESTING HPV TESTING [facility] Start: 2017 HPV Vaccine (1 - 3-dose SCDM series) HPV Vaccine (1 - 3-dose SCDM series) [facility] Start: 2009 Hepatitis B Vaccine (1 of 3 - 19+ 3-dose series) Hepatitis B Vaccine (1 of 3 - 19+ 3-dose series) [facility] Start: 2002 Adult depression screening assessment DEPRESSION SCREENING [facility] Start: 08-07-1995 COVID-19 VACCINE (#1) COVID-19 VACCINE (#1) [facility] Start: 08-07-1995 COVID-19 VACCINE (1) COVID-19 VACCINE (1) [facility] Start: 02-06-1991 COVID-19 VACCINE (#1) COVID-19 VACCINE (#1) [facility] Start: 1990 HEPATITIS B (1 of 3 - 3-dose series) HEPATITIS B (1 of 3 - 3-dose series) [facility] End: 08-30-2025 ECHO ECHO Cardiology Routine Supervision of other high risk pregnancies, second trimester (HCC) Surrogate (HCC) 20 weeks gestation of (HCC) 1 Occurrences starting 08/30/2024 until 08/30/2025 [facility] Work Phone: Comment on above: 1 Occurrences starting 08/30/2024 until 08/30/2025 nonstress test NON-S TRESS TEST Procedures Routine Supervision of high risk in third trimester (HCC) Surrogate (HCC) 37 weeks gestation of (HCC) Ordered: 12/27/2024 [facility] Work Phone: Comment on above: Ordered: 12/27/2024 End: 09-02-2025 MR Brain WO contrast MRI BRAIN WO IVCON Radiology Routine Migraine without aura and without status migrainosus, not intractable 1 Occurrences starting 08/03/2024 until 09/02/2025 [facility] Work Phone: Comment on above: 1 Occurrences starting 08/03/2024 until 09/02/2025 End: 06-13-2023 Mri pelvis w/o & w/contrast material MRI FEMALE PELVIS WO/W IVCON Radiology Routine Primary dysmenorrhea Pelvic and perineal pain Deep dyspareunia 1 Occurrences starting 05/14/2022 until 06/13/2023 [facility] Work Phone: Comment on above: 1 Occurrences starting 05/14/2022 until 06/13/2023 End: 08-16-2022 Mri pelvis w/o & w/contrast material [facility] Work Phone: Comment on above: 1 Occurrences starting 08/16/2022 until 08/16/2022 End: 08-14-2025 OBSTETRIC ULTRASOUND WHI OBSTETRIC ULTRASOUND WHI Anc Imaging Routine Supervision of high risk in third trimester ([facility]) Obesity affecting in third trimester, unspecified obesity type (HCC) Once per month for 4 Occurrences starting 08/30/2024 until 08/14/2025 [facility] Work Phone: Comment on above: Once per month for 4 Occurrences startin g 08/30/2024 until 08/14/2025 End: 01-18-2025 OBSTETRIC ULTRASOUND WHI OBSTETRIC ULTRASOUND WHI Anc Imaging Routine Diet controlled gestational diabetes mellitus (GDM) in third trimester ([facility]) Once per month for 5 Occurrences starting 10/27/2024 until 01/18/2025 [facility] Work Phone: Comment on above: Once per month for 5 Occurrences startin g 10/27/2024 until 01/18/2025 ROUTINE, GR OUP B STREPTOCOCCUS BY PCR ROUTINE, GROUP B STREPTOCOCCUS BY PCR Microbiology Routine Supervision of high risk in third trimester ([facility]) 12/27/2024 9:41 AM EDT [facility] URINE OB DIP B/O URINE OB DIP B/ O Lab Routine resulting from in vitro fertilization in third trimester ([facility]) Supervision of high risk in third trimester ([facility]) 28 weeks gestation of ([facility]) Ordered: 10/25/2024 [facility] Work Phone: Comment on above: Ordered: 10/25/2024 [facility] Immunizations Immunization Date Immunization Notes Care Provider Maxine rollins 08-04-2019 tetanus toxoid, redu kathy diphtheria toxoid, and acellular pertussis vaccine, adsorbed Ann-Marie Torres COMMUNITY DEVELOPMENT MANAGER.FUSING MACHINE OPERATOR Work Phone: [facility] Work Phone: 03-30-2019 influenza, injectabl e, quadrivalent, contains preservative Ann-Marie Torres COMMUNITY DEVELOPMENT MANAGER.FUSING MACHINE OPERATOR Work Phone: [facility] 04-13-2018 tetanus toxoid, redu kathy diphtheria toxoid, and acellular pertussis vaccine, adsorbed Ann-Marie Torres APRN.FUSING MACHINE OPERATOR Work Phone: [facility] 02-17-2018 influenza virus vaccine, unspecified formulation Ann-Marieaman Torres TAB.FUSING MACHINE OPERATOR Work Phone: [facility] Payers Date Payer Category Payer Self-pay 2024 Unknown [id number] 2024 Unknown [id number] 2022 Private Health Insurance [id number] 2022 Unknown [id number] 2022 Unknown [id number] 2019 Medicaid [place] [employer] [place] [employer] [id number] 2019-Present [phone] [address] [place] [address] Medicaid [id number] 2019 Medicaid [id number] Unknown [id number] Social History Date Type Detail Facility Start: 02-28-2022 Tobacco smoking stat [facility] Never smoked tobacco [facility] Start: 06-08-2021 End: 11-24-2024 Alcohol intake Ex-drinker (finding) [facility] Start: 06-27-2020 End: 04-25-2022 History SDOH Alcohol Frequency 2 [facility] Start: 06-27-2020 End: 01-20-2022 History SDOH Alcohol Std Drinks 1 [facility] Start: 09-18-2017 History SDOH Alcohol Comment occasionally, not while [facility] Start: 06-27-2020 End: 04-25-2022 History SDOH Social Connections Phone 5 [facility] Start: 06-27-2020 History SDOH Social Connections Get Together 4 [facility] Start: 06-27-2020 End: 04-25-2022 History SDOH Social Connections [employer] 3 [facility] Start: 06-27-2020 History SDOH Physica l Activity MPS 9 [facility] Start: 06-27-2020 Education 17 [facility] Start: 1990 Sex Assigned At Not on file C [facility] Start: 08-10-2021 End: 08-20-2021 Exposure to SARS-CoV-2 (event) Unable to assess [facility] Work Phone: Start: 02-28-2022 Tobacco use and exposure Smoke less tobacco non-user [facility] Start: 01-20-2022 End: 04-25-2022 History SDOH Physical Activity DPW 0 [facility] Start: 02-18-2022 End: 04-26-2022 Exposure to SARS-CoV-2 (event) Not sure [facility] Work Phone: Start: 04-25-2022 End: 07-07-2024 History of Social function [place] [facility] Start: 04-25-2022 End: 07-07-2024 Social connection and isolation panel [facility] Do you belong to any clubs or organizations such as anabaptism groups, unions, fraternal or athletic groups, or school groups? No [facility] Are you now , , , , never or living with a partner? [facility] How often to you hav e a drink containing alcohol? 2-4 times a month [facility] How many standard dr inks containing alcohol do you have on a typical day? 1 or 2 [facility] How often do you hav e 6 or more drinks on 1 occasion? Never [facility] Start: 04-26-2012 How hard is it for y ou to pay for the very basics like food, housing, medical care, and heating Not hard at all [facility] Do you feel stress - tense, restless, nervous, or anxious, or unable to sleep at night because your mind is troubled all the time - these days [OSQ] Very much [facility] (I/We) worried wheth er (my/our) food would run out before (I/we) got money to buy more. Never true [facility] Do you belong to any clubs or organizations such as anabaptism groups, unions, fraternal or athletic groups, or school groups? Yes [facility] How often to you hav e a drink containing alcohol? Monthly or less [facility] Start: 04-24-2024 [facility] Medical Equipment Procedure Code Equipment Code Equipment Origin al Text Equipment Identifier Dates [id number], [id number] Start: 02-28-2022 End: 02-28-2022 Goals Date Patient Goal Desired Activity /State Personal health goal Functional Status Date Assessment Result Facility 06-22-2014 Are you deaf, or do you have serious difficulty hearing No 06/22/2014 7:59 AM Violeta Curran C[facility] No [facility] 06-22-2014 Are you blind, or do you have serious difficulty seeing, even when wearing glasses No 06/22/2014 7:59 AM Violeta Curran [facility] No [facility] [facility] Do you have serious difficulty walking or climbing stairs No 06/22/2014 7:59 AM Violeta Curran Cma No [facility] 06-22-2014 Do you have difficul ty dressing or bathing No 06/22/2014 7:59 AM Violeta Curran Cma No [facility] 06-22-2014 Because of a physica l, mental, or emotional condition, do you have difficulty doing errands alone such as visiting a physician's office or shopping No 06/22/2014 7:59 AM Violeta Curran Cma No [facility] Mental Status Date Assessment Result Facility 06-22-2014 Because of a physica l, mental, or emotional condition, do you have serious difficulty concentrating, remembering, or making decisions No 06/22/2014 7:59 AM Violeta Curran Cma No [facility] Clinical Notes 02-11-2019 to 01-04-2025 Telephone Encounter - Kandy Rivers RN - 01/04/2025 8:39 AM EDTTelephone Encounter - Kandy Rivers RN - 01/04/2025 8:39 AM EDTTelephone Encounter - Tracie Garza RN - 12/29/2024 9:58 AM EDT Note Date & Type Note Facility 01-04-2025 Telephone encounter Note Update per Pt on 01/03/25- Pt states Ruth is denying coverage at [facility] and [facility] agency will be covering charges. Fax received from [facility] 01/03/25, letter states they do not have an in-network provider able to render the services needed & they will not cover all or part of the services requested because it is not medically necessary. Denial information given to MARVIN to review. Kandy Rivers RN [facility] 01-04-2025 Miscellaneous Notes Update per Pt on 01/03/25- Pt states Ruth is denying coverage at [facility] and [facility] agency will be covering charges. Fax received from [facility] 01/03/25, letter states they do not have an in-network provider able to render the services needed & they will not cover all or part of the services requested because it is not medically necessary. Denial information given to MARVIN to review. Kandy Rivers RN [facility] Patient oracle financials developer returned my call from yesterday. Was told that [facility] insurance is not accepted there unless patient came in through the Emergency Room. Called and spoke with patient. She did speak with [facility] earlier in her and their department suggested to her that we complete forms through her insurance - just as we have been doing. Notified patient that we did resubmit the forms again yesterday. Patient stated that regardless, she is planning to deliver with [facility]. Out of pocket financial responsibility will be on the surrogacy company - per patient. The insurance and benefits clerk did not investigate when choosing a provider and location for this delivery, per patient. Tracie Garza RN Left message with [facility] Patient Financial Services to call our back line. Patient is scheduled for an induction on 01/10. Want to ensure that [facility] will allow her to come in for this if her insurance is OON (according to the information below). If so, want to let them know that we have been working on this. Should (or has) patient spoke with [facility] herself? We don't typically do this for OON patients during . We have them deliver with [facility]. Tracie Garza RN Sarah from [employer] ([phone]) called and states engine dynamometer tester has called [facility] to see if they [...] insurance will cover provider OV, but not [facility]. Only hospital covered-is [facility]. Form re-faxed to [facility] with area circled on face sheet that states Provider only delivers at [facility] and does not deliver at [facility] and also faxed to Sarah from [facility] at [phone]. Gave her [facility] Patient Financial Services phone # to contact them to see if they can assist. Kandy Rivers RN Authorization request form faxed to [facility]. Kandy Rivers RN Frazaneh Elise-[facility] ([place]) [phone] Calling stating insurance risk analyst (3rd republican) has informed her that [facility] (Pt's insurance company) states Pt's OB OV are in network; However, [facility] is out of network and form needs filled out JEREMY. Therefore, she states she was informed that either filled had been filled out incorrectly or not enough information was filled out and this needs to be completed so that Bryce can deliver at [facility]. Single case agreement needs completed. Informed her that form will be filled out and faxed to [facility]. Farzaneh states she will call [facility] tomorrow to f/u with them and will call our office if any problems. Kandy Rivers RN After multiple transfers, nurse was told to call [facility] directly at [phone] and ask to initiate a single case agreement. Call reference number: [id number] Transferred to prior authorization department to initiate the single case agreement. Prior authorization department initiated single case agreement and medical records faxed to [phone]. Pending authorization number: [id number]. Prior authorization department did mention after entering the [facility] tax ID and NPI that it was in-network? Previous [facility] sales representative advertising told nurse that it was NOT in network? Mixed information was given during phone conversation and multiple transfers. documented in this encounter [facility] 01-03-2025 Note HNO ID: [id number] Author: TRACIE KOVACS MD Service: ? Author Type: Physician Type: Progress Notes Filed: 01/03/2025 13:28 Note Text: NST SUMMARY PROVIDER ASSESSMENT AND INTERPRETATION Indications for NST: IVF Prenancy Baseline: 130 Variability: Moderate Accelerations: Present 15 X 15 Decelerations: None Interpretation: Reactive SIGNATURE: Tracie Kovacs MD [facility] 01-03-2025 Progress note Formatting of t his [...] week ASSESSMENT/PLAN: 1. 38 weeks gestation of ([facility]) - ICD9: V22.2, ICD10: Z3A.38 (primary diagnosis) - URINE OB DIP B/O 2. Group beta Strep positive - ICD9: 041.02, ICD10: B95.1 - URINE OB DIP B/O 3. Supervision of high risk in third trimester ([facility]) - ICD9: V23.9, ICD10: O09.93 - URINE OB DIP B/O 4. Surrogate ([facility]) - ICD9: V22.1, ICD10: Z33.3 - URINE OB DIP B/O 5. Diet controlled gestational diabetes mellitus (GDM) in third trimester ([facility]) - ICD9: 648.83, ICD10: O24.410 - URINE OB DIP B/O Tracie Kovacs MD [facility] 01-03-2025 History of Present illness Narrative NST SUMMARY PROVIDER ASSESSMENT AND INTERPRETATION Indications for NST: IVF Prenancy Baseline: 130 Variability: Moderate Accelerations: Present 15 X 15 Decelerations: None Interpretation: Reactive SIGNATURE: Tracie Kovacs MD documented in this encounter [facility] 01-03-2025 Miscellaneous Notes S: Bryce Ramirez is [...] week ASSESSMENT/PLAN: 1. 38 weeks gestation of ([facility]) - ICD9: V22.2, ICD10: Z3A.38 (primary diagnosis) - URINE OB DIP B/O 2. Group beta Strep positive - ICD9: 041.02, ICD10: B95.1 - URINE OB DIP B/O 3. Supervision of high risk in third trimester ([facility]) - ICD9: V23.9, ICD10: O09.93 - URINE OB DIP B/O 4. Surrogate ([facility]) - ICD9: V22.1, ICD10: Z33.3 - URINE OB DIP B/O 5. Diet controlled gestational diabetes mellitus (GDM) in third trimester ([facility]) - ICD9: 648.83, ICD10: O24.410 - URINE OB DIP B/O Tracie Kovacs MD documented in this encounter [facility] 01-03-2025 Instructions Heather Steward MA - 01/03/2025 12:56 PM EDT SEQUENTIAL SCREENINGS The [facility] offers sequential screenings for women [...] It will require an appointment with our forest technician. This is not an ultrasound performed [...] the above symptoms, contact our office at [phone] and ask to speak with a nurse. After hours, you can call doctors registry at [phone] OR call [facility] at [phone] and ask to have the doctor numerical control machine operator paged. If you consider this an emergency, dial 9--0 or go to your nearest emergency department. NEED HELP? Are you dealing with a violent or abusive relationship? Are you a victim of rape or sexual assult? Call [facility] ([place]) 24 hour Crisis Hotline: 204.725.3838 or 520-815-3101. MANUAL Your Guide to a Healthy manual is now on-line. Visit [email or web address] ncyGuide to download your free copy documented in this encounter [facility] 12-29-2024 Telephone encounter Note [facility] Patient oracle financials developer returned my call from yesterday. Was told that [facility] insurance is not accepted there unless patient came in through the Emergency Room. Called and spoke with patient. She did speak with [facility] earlier in her and their department suggested to her that we complete forms through her insurance - just as we have been doing. Notified patient that we did resubmit the forms again yesterday. Patient stated that regardless, she is planning to deliver with [facility]. Out of pocket financial responsibility will be on the surrogacy company - per patient. The insurance and benefits clerk did not investigate when choosing a provider and location for this delivery, per patient. Tracie Garza RN [facility] 12-28-2024 Telephone encounter Note Left message with [facility] Patient Financial Services to call our back line. Patient is scheduled for an induction on 01/10. Want to ensure that [facility] will allow her to come in for this if her insurance is OON (according to the information below). If so, want to let them know that we have been working on this. Should (or has) patient spoke with [facility] herself? We don't typically do this for OON patients during . We have them deliver with [facility]. Tracie Garza, RN [facility] 12-28-2024 Telephone encounter Note Sarah from [employer] ([phone]) called and states engine dynamometer tester has called [facility] to see if they [...] insurance will cover provider OV, but not [facility]. Only hospital covered-is [facility]. Form re-faxed to [facility] with area circled on face sheet that states Provider only delivers at [facility] and does not deliver at [facility] and also faxed to Sarah from [employer] at [phone]. Gave her [facility] Patient Financial Services phone # to contact them to see if they can assist. Kandy Rivers RN [facility] 12-27-2024 Telephone encounter Note Authorization request form faxed to [facility]. Kandy Rivers RN [facility] 12-27-2024 Telephone encounter Note Farzaneh El[facility] [employer] ([place]) [phone] Calling stating insurance risk analyst (3rd republican) has informed her that [facility] (Pt's insurance company) states Pt's OB OV are in network; However, [facility] is out of network and form needs filled out JEREMY. Therefore, she states she was informed that either filled had been filled out incorrectly or not enough information was filled out and this needs to be completed so that Bryce can deliver at [facility]. Single case agreement needs completed. Informed her that form will be filled out and faxed to [facility]. Farzaneh states she will call [facility] tomorrow to f/u with them and will call our office if any problems. Kandy Rivers RN [facility] 12-27-2024 Note Indication Evaluation of growth, Evaluation [...] 8 oz EFW by: Hadlock (HC-AC-FL) Extended Diesel Powerplant Mechanic 4.7 mm Extremities / Bony Struc FL [...] weeks with Growth US Chaya Fermin APRN.CNM [facility] 12-27-2024 Miscellaneous Notes MARVIN-S: Bryce Ramirez is [...] Chaya Fermin APRN.CNM documented in this encounter [facility] 12-27-2024 Instructions Myrna Cavaanugh MA - 12/27/2024 9:09 AM EDT SEQUENTIAL SCREENINGS The [facility] offers sequential screenings for women [...] It will require an appointment with our forest technician. This is not an ultrasound performed [...] the above symptoms, contact our office at [phone] and ask to speak with a nurse. After hours, you can call doctors registry at [phone] OR call [facility] at [phone] and ask to have the doctor numerical control machine operator paged. If you consider this an emergency, dial 9--1 or go to your nearest emergency department. NEED HELP? Are you dealing with a violent or abusive relationship? Are you a victim of rape or sexual assult? Call [facility] ([place]) 24 hour Crisis Hotline: 679.977.1721 or 317-433-1944. MANUAL Your Guide to a Healthy manual is now on-line. Visit [email or web address] ncyGuide to download your free copy documented in this encounter [facility] 12-07-2024 Telephone encounter Note After multiple transfers, nurse was told to call [facility] directly at [phone] and ask to initiate a single case agreement. Call reference number: [id number] Transferred to prior authorization department to initiate the single case agreement. Prior authorization department initiated single case agreement and medical records faxed to [phone]. Pending authorization number: [id number]. Prior authorization department did mention after entering the [facility] tax ID and NPI that it was in-network? Previous [facility] sales representative advertising told nurse that it was NOT in network? Mixed information was given during phone conversation and multiple transfers. [facility] 12-06-2024 Instructions Meliton Fabian LPN - 12/06/2024 8:04 AM EDT SEQUENTIAL SCREENINGS The [facility] offers sequential screenings for women [...] It will require an appointment with our forest technician. This is not an ultrasound performed [...] the above symptoms, contact our office at [phone] and ask to speak with a nurse. After hours, you can call doctors registry at [phone] OR call [facility] at [phone] and ask to have the doctor numerical control machine operator paged. If you consider this an emergency, dial 9-1-1 or go to your nearest emergency department. NEED HELP? Are you dealing with a violent or abusive relationship? Are you a victim of rape or sexual assult? Call [facility] ([place]) 24 hour Crisis Hotline: 123.179.1475 or 646-700-8855. MANUAL Your Guide to a Healthy manual is now on-line. Visit [email or web address] ncyGuide to download your free copy documented in this encounter [facility] 12-06-2024 Miscellaneous Notes MARVIN-S: Bryce Ramirez is [...] Chaya Fermin APRN.CNM documented in this encounter [facility] 12-06-2024 Progress note Formatting of t his [...] weeks with Growth US Chaya Fermin APRN.CNM [facility] 11-24-2024 Note Indication Evaluation of growth Maternal [...] 12 oz EFW by: Hadlock (HC-AC-[place]) Extended Diesel Powerplant Mechanic 5.5 mm Extremities / Bony Struc FL [...] M.D. [facility] 11-24-2024 Note HNO ID: [id number] Author: CHAYA FERMIN APRN.CNM Service: ? Author Type: Database Administration Project Manager Type: Progress Notes Filed: 11/24/2024 11:43 [...] record data and to send weekly via Ga[employer] -Growth US today, repeat at 36wk 9. Anemia during in third trimester -Continue Iron supplement, repeat CBC and iron studies today PTL precautions reviewed and when to call RTO in 2 weeks Chaya Fermin APRN.ELMIRA [facility] 11-24-2024 History of Present illness Narrative MARVIN-S: [...] record data and to send weekly via Gaatu -Growth US today, repeat at 36wk 9. Anemia during in third trimester -Continue Iron supplement, repeat CBC and iron studies today PTL precautions reviewed and when to call RTO in 2 weeks Chaya Fermin APRN.CNM documented in this encounter [facility] 11-24-2024 Instructions Chaya Fermin APRN.CNM - 11/24/2024 11:08 AM EDT (Fingersticks) Date Fasting AM 1 hr PP Breakfast 1 hr PP Lunch 1 hr PP Dinner *Send log weekly via Gaatu and bring to appointments SIGNS AND SYMPTOMS [...] the above symptoms, contact our office at [phone] and ask to speak with a nurse. After hours, you can call doctors registry at [phone] OR call [facility] at [phone] and ask to have the doctor numerical control machine operator paged. If you consider this an emergency, dial 2-9-3 or go to your nearest emergency department. NEED HELP? Are you dealing with a violent or abusive relationship? Are you a victim of rape or sexual assult? Call [facility] ([place]) 24 hour Crisis Hotline: 944.567.2864 or 035-146-7081. MANUAL Your Guide to a Healthy manual is now on-line. Visit [email or web address] ncyGuide to download your free copy documented in this encounter [facility] 11-08-2024 Progress note Formatting of t his [...] (GDM) in third trimester -Good control, completed certified breastfeeding educator visit and feel comfortable with testing and diet. 9. Anemia during in third trimester -Continue Iron supplement, repeat CBC next visit PTL precautions reviewed and when to call RTO in 2 weeks with Growth US Chaya Fermin APRN.CNM [facility] 11-08-2024 Miscellaneous Notes MARVIN-S: Bryce Ramirez is a [...] (GDM) in third trimester -Good control, completed certified breastfeeding educator visit and feel comfortable with testing and diet. 9. Anemia during in third trimester -Continue Iron supplement, repeat CBC next visit PTL precautions reviewed and when to call RTO in 2 weeks with Growth US Chaya Fermin APRN.CNM documented in this encounter [facility] 11-08-2024 Note HNO ID: [id number] Author: CHAYA FERMIN APRN.CNM Service: ? Author Type: Database Administration Project Manager Type: Progress Notes Filed: 11/08/2024 08:29 Note Text: [facility] 11-08-2024 History of Present illness Narrative documented in this encounter [facility] 11-08-2024 Instructions Tejas Valdez MA - 11/08/2024 7:58 AM EDT SEQUENTIAL SCREENINGS The [facility] offers sequential screenings for women [...] It will require an appointment with our forest technician. This is not an ultrasound performed [...] the above symptoms, contact our office at [phone] and ask to speak with a nurse. After hours, you can call doctors registry at [phone] OR call [facility] at [phone] and ask to have the doctor numerical control machine operator paged. If you consider this an emergency, dial 9-1-1 or go to your nearest emergency department. NEED HELP? Are you dealing with a violent or abusive relationship? Are you a victim of rape or sexual assult? Call [facility] ([place]) 24 hour Crisis Hotline: 847.708.7042 or 217-014-7106. MANUAL Your Guide to a Healthy manual is now on-line. Visit [email or web address] ncyGuide to download your free copy documented in this encounter [facility] 11-01-2024 Note HNO ID: [id number] Author: CIARRA HUBBARD RN Service: ? Author Type: Registered Nurse Type: Progress Notes Filed: 11/01/2024 10:47 Note Text: DIABETES SELF-MANAGEMENT EDUCATION AND SUPPORT Location: [facility] Type of visit: Virtual (with video) individual I have communicated my name and active licensure. The patient's identity and physical location were verified at the time of this visit. Either the patient or their legal sales representative advertising has been informed of the risks and [...] Race/Ethnic Origin: White/ Does you culture or yazidi require any of the following: No cultural/quaker practices affecting DM Do you have problems [...] How do you manage stress? Watch [employer] [place] Do any of the following things get [...] Take 1 ta (more content not included)... [facility] 11-01-2024 History of Present illness Narrative DIABETES SELF-MANAGEMENT EDUCATION AND SUPPORT Location: [facility] Type of visit: Virtual (with video) individual I have communicated my name and active licensure. The patient's identity and physical location were verified at the time of this visit. Either the patient or their legal sales representative advertising has been informed of the risks and [...] Race/Ethnic Origin: White/ Does you culture or yazidi require any of the following: No cultural/quaker practices affecting DM Do you have problems [...] How do you manage stress? Watch Tik [place] Do any of the following things get [...] Take 1 tablet by mouth once daily. Puoxilmh-[id number]-Tpp-Fe-[id number] tab Take 1 tablet by mouth once [...] continues to want a second opinion. First [facility] visit 11/16/24. Time Spent (Minutes): 45 This visit note will be communicated to the healthcare provider via access to shared medical record. SIGNATURE: Ciarra Hubbard RN,BSN,[facility] PATIENT NAME: Bryce Ramirez DATE: November 01, 2024 TIME: 9:01 AM PAGER: documented in this encounter [facility] 10-25-2024 Progress note Formatting of t his note might be different from the original. Anatomy ultrasound reviewed. No abnormalities identified. Follow up as clinically indicated. Please place copy in ob chart. Nelly Solorzano MD [facility] 10-25-2024 Miscellaneous Notes Anatomy ultrasound reviewed. No abnormalities identified. Follow up as clinically indicated. Please place copy in ob chart. Nelly Solorzano MD documented in this encounter [facility] 10-25-2024 Note Indication Evaluation of growth Maternal [...] 12 oz EFW by: Hadlock (HC-AC-[place]) Extended Diesel Powerplant Mechanic 4.7 mm Extremities / Bony Struc FL [...] RTO in 4 weeks Chaya Fermin APRN.CNM [facility] 10-25-2024 Miscellaneous Notes MARVIN-S: Bryce Ramirez is [...] Chaya Fermin APRN.CNM documented in this encounter [facility] 10-25-2024 Instructions Trudy Davis MA - 10/25/2024 11:20 AM EDT SEQUENTIAL SCREENINGS The [facility] offers sequential screenings for women [...] It will require an appointment with our forest technician. This is not an ultrasound performed [...] the above symptoms, contact our office at [phone] and ask to speak with a nurse. After hours, you can call doctors registry at [phone] OR call [facility] at [phone] and ask to have the doctor numerical control machine operator paged. If you consider this an emergency, dial 9-1-6 or go to your nearest emergency department. NEED HELP? Are you dealing with a violent or abusive relationship? Are you a victim of rape or sexual assult? Call [facility] ([facility] 24 hour Crisis Hotline: 561.230.3494 or 160-668-8886. MANUAL Your Guide to a Healthy manual is now on-line. Visit [email or web address] ncyGuide to download your free copy documented in this encounter [facility] 10-19-2024 Telephone encounter Note Prescription Refill Information [...] Bustos MA October 19, 2024 9:04 AM [facility] 10-19-2024 Miscellaneous Notes Prescription Refill Information The [...] 2024 9:04 AM documented in this encounter [facility] 09-27-2024 Progress note Formatting of t his [...] RTO in 4 weeks Chaya Fermin APRN.CNM [facility] 09-27-2024 Miscellaneous Notes MARVIN-S: Bryce Ramirez is [...] Chaya Fermin APRN.CNM documented in this encounter [facility] 09-27-2024 Instructions Tejas Valdez MA - 09/27/2024 11:18 AM EDT SEQUENTIAL SCREENINGS The [facility] offers sequential screenings for women [...] It will require an appointment with our forest technician. This is not an ultrasound performed [...] the above symptoms, contact our office at [phone] and ask to speak with a nurse. After hours, you can call doctors registry at [phone] OR call [facility] at [phone] and ask to have the doctor numerical control machine operator paged. If you consider this an emergency, dial 9-1-1 or go to your nearest emergency department. NEED HELP? Are you dealing with a violent or abusive relationship? Are you a victim of rape or sexual assult? Call [facility] ([place]) 24 hour Crisis Hotline: 944.856.6340 or 019-718-7886. MANUAL Your Guide to a Healthy manual is now on-line. Visit [email or web address] ncyGuide to download your free copy documented in this encounter [facility] 09-27-2024 Note HNO ID: [id number] Author: MOSES ACRUSO MD Service: ? Author Type: Physician Type: Progress Notes Filed: 09/27/2024 10:08 Note Text: /Pediatric Cardiology Consultation Chaya Fermin APRN FUSING MACHINE OPERATOR NAME: Bryce Ramirez Date of : 1990 Date of Visit: September 27, 2024 Estimated Date of Delivery: 01/15/25 Dear Chaya Fermin, I had the pleasure of seeing your patient, Ms. Bryce Ramirez, for a echocardiogram at the [facility] in [place]. As you know, she is a 34 [...] the . She plans to deliver in [place]. A full echocardiogram was performed and reviewed [...] the findings of today's echocardiogram with Ms. Byrce Ramirez with the help of a diagram. [...] at any time. Sincerely, Moses Caruso MD [facility] Division of Pediatric Cardiology [facility] During this patient visit I have spent approximately 40 minutes out of 45 in coordinating/counseling about the above findings and limitations of echocardiogram. [facility] 09-27-2024 History of Present illness Narrative /Pediatric Cardiology Consultation Chaya Fermin APRN FUSING MACHINE OPERATOR NAME: Bryce Ramirez Date of : 1990 Date of Visit: September 27, 2024 Estimated Date of Delivery: 01/15/25 Dear Chaya Fermin, I had the pleasure of seeing your patient, Ms. Bryce Ramirez, for a echocardiogram at the [facility] in [place]. As you know, she is a 34 [...] the . She plans to deliver in [place]. A full echocardiogram was performed and reviewed [...] at any time. Sincerely, Moses Caruso MD [facility] Division of Pediatric Cardiology [facility] During this patient visit I have spent approximately 40 minutes out of 45 in coordinating/counseling about the above findings and limitations of echocardiogram. documented in this encounter [facility] 09-15-2024 Telephone encounter Note I called patient because she had not viewed MyChart message. Discussed importance of us getting her medical records and informed her that medical release form was attached to previous MyChart message that she hasn't reviewed. Patient states she will contact previous provider and check her MyChart message [facility] 09-15-2024 Miscellaneous Notes I called patient because [...] if she had questions/concerns to call office. Kanyd Rivers RN Images from the original note were not included. Chaya Fermin APRN.CNM P Wstr Ob-Rope Machine Setter Pool Do we still not have her medical records? I don't see them scanned or her labs uploaded into the chart for her record. Am I missing them? Chaya Burciaga APRN.CNM documented in this encounter [facility] 09-14-2024 Telephone encounter Note Left vm to schedule echo [phone] opt 2 [facility] 09-14-2024 Miscellaneous Notes Left vm to schedule echo [phone] opt 2 documented in this encounter [facility] 09-07-2024 Telephone encounter Note Left message for Pt informing her mychart message would be sent and if she had questions/concerns to call office. Kandy Rivers RN [facility] 09-07-2024 Telephone encounter Note Images from the original note were not included. Chaya Fermin APRN.CNM P Wstr Ob-Rope Machine Setter Pool Do we still not have her medical records? I don't see them scanned or her labs uploaded into the chart for her record. Am I missing them? Chaya Burciaga APRN.CNM [facility] 08-30-2024 Progress note Formatting of t his note might be different from the original. MARVIN- [facility] 08-30-2024 Miscellaneous Notes MARVIN- documented in this encounter [facility] 08-30-2024 Note HNO ID: [id number] Author: CHAYA FERMIN APRN.CNM Service: ? Author Type: Database Administration Project Manager Type: Progress Notes Filed: 09/06/2024 16:52 [...] RTO in 4 weeks Chaya Fermin APRN.CNM [facility] 08-30-2024 History of Present illness Narrative MARVIN-S: [...] Chaya Fermin APRN.CNM documented in this encounter [facility] 08-30-2024 Instructions Chaya Fermin APRN.CNM - 08/30/2024 9:04 AM EDT Please call [phone], select option 2, to schedule Echocardiogram SIGNS [...] the above symptoms, contact our office at [phone] and ask to speak with a nurse. After hours, you can call doctors registry at [phone] OR call [facility] at [phone] and ask to have the doctor numerical control machine operator paged. If you consider this an emergency, dial 9-1- or go to your nearest emergency department. NEED HELP? Are you dealing with a violent or abusive relationship? Are you a victim of rape or sexual assult? Call [facility] ([place]) 24 hour Crisis Hotline: 722.594.5616 or 030-996-7188. MANUAL Your Guide to a Healthy manual is now on-line. Visit [email or web address] ncyGuide to download your free copy documented in this encounter [facility] 08-03-2024 Instructions Laine Mccollum APRN.CNP - 08/03/2024 7:57 AM EDT [...] medication overuse headache. documented in this encounter [facility] 08-03-2024 History of Present illness Narrative [facility] [place] New Patient Evaluation This visit was conducted via virtual platform. I have communicated my name and active licensure. The patient's identity and physical location were verified at the time of this visit. Either the patient or their legal sales representative advertising has been informed of the risks and [...] she gets a migraine she has to press puller as she cannot see. Would usually [...] (VITAMIN D2 ORAL) Take by mouth. rizatriptan (MAXALT-TOOL REPAIRER) 10 mg disintegrating tablet Take 1 tablet [...] per month to prevent medication overuse headache. [facility] on 08/03/24 MRI BRAIN WO IVCON CONSULT TO [facility] Laine Mccollum APRN.CNP I spent a total of 56 minutes on the date of the service which included preparing to see the patient, [id number] patient care, completing clinical documentation, obtaining and/or reviewing separately obtained history, performing a medically appropriate examination, counseling and educating the patient/family/caregiver, and ordering medications, tests, or procedures. Portions of this note were created with electronic dictation and errors in spelling, syntax, and meaning may have occurred. documented in this encounter [facility] 08-03-2024 Note HNO ID: [id number] Author: LAINE MCCOLLUM APRN.CNP Service: ? Author Type: Nurse Practitioner Type: Progress Notes Filed: 08/03/2024 16:32 Note Text: [facility] [place] New Patient Evaluation This visit was conducted via virtual platform. I have communicated my name and active licensure. The patient's identity and physical location were verified at the time of this visit. Either the patient or their legal sales representative advertising has been informed of the risks and [...] she gets a migraine she has to press puller as she cannot see. Would usually [...] wait until through (more content not included)... [facility] 08-02-2024 Progress note Formatting of t his [...] RTO in 4 wk Chaya Fermin APRN.CNM [facility] 08-02-2024 Miscellaneous Notes MARVIN-S: Bryce Ramirez is [...] Chaya Fermin APRN.CNM documented in this encounter [facility] 08-02-2024 Instructions Tejas Valdez MA - 08/02/2024 12:56 PM EDT SEQUENTIAL SCREENINGS The [facility] offers sequential screenings for women [...] It will require an appointment with our forest technician. This is not an ultrasound performed [...] the above symptoms, contact our office at [phone] and ask to speak with a nurse. After hours, you can call doctors registry at [phone] OR call [facility] at [phone] and ask to have the doctor numerical control machine operator paged. If you consider this an emergency, dial 9-1-3 or go to your nearest emergency department. NEED HELP? Are you dealing with a violent or abusive relationship? Are you a victim of rape or sexual assult? Call [facility] ([place]) 24 hour Crisis Hotline: 878.675.2335 or 390-675-4474. MANUAL Your Guide to a Healthy manual is now on-line. Visit [email or web address] ncyGuide to download your free copy documented in this encounter [facility] 07-26-2024 Telephone encounter Note Called pt to ask what medication was needed refilled.Asked pt to return call. [facility] 07-26-2024 Miscellaneous Notes Called pt to ask [...] 2024 4:17 PM documented in this encounter [facility] 07-26-2024 Telephone encounter Note Nothing pended... Radha Brown APRN.FUSING MACHINE OPERATOR [facility] Work Phone: 07-22-2024 Telephone encounter Note Prescription [...] Marroquin LPN July 22, 2024 4:17 PM [facility] 07-12-2024 Progress note Formatting of t his [...] RTO in 4 weeks Chaya Fermin APRN.CNM [facility] 07-12-2024 Miscellaneous Notes MARVIN-S: Bryce Ramirez is [...] Chaya Fermin APRN.CNM documented in this encounter [facility] 07-12-2024 Instructions Tejas Valdez MA - 07/12/2024 9:53 AM EST SEQUENTIAL SCREENINGS The [facility] offers sequential screenings for women [...] It will require an appointment with our forest technician. This is not an ultrasound performed [...] the above symptoms, contact our office at [phone] and ask to speak with a nurse. After hours, you can call doctors registry at [phone] OR call [facility] at [phone] and ask to have the doctor numerical control machine operator paged. If you consider this an emergency, dial 0--7 or go to your nearest emergency department. NEED HELP? Are you dealing with a violent or abusive relationship? Are you a victim of rape or sexual assult? Call [facility] ([place]) 24 hour Crisis Hotline: 623.702.2747 or 174-039-5104. MANUAL Your Guide to a Healthy manual is now on-line. Visit [email or web address] ncyGuide to download your free copy documented in this encounter [facility] 07-07-2024 Note HNO ID: [id number] Author: CHAYA FERMIN APRN.CNM Service: ? Author Type: Database Administration Project Manager Type: Progress Notes Filed: 07/16/2024 17:12 Note Text: Brim Ironer Hand offered: Patient declines. INITIAL OB ASSESSMENT HPI: [...] Status: Partner: Name: Matti Age: 35 Occupation: nfon Gender: Male PAST MEDICAL HISTORY Diagnosis Date [...] (VITAMIN D2 ORAL) Take by mouth. rizatriptan (MAXALT-TOOL REPAIRER) 10 mg disintegrating tablet Take 1 tablet [...] day 90 capsule (more content not included)... [facility] 07-07-2024 History of Present illness Narrative Brim Ironer Hand offered: Patient declines. INITIAL OB ASSESSMENT HPI: [...] Status: Partner: Name: Matti Age: 35 Occupation: Relay Operator Gender: Male PAST MEDICAL HISTORY Diagnosis Date [...] (VITAMIN D2 ORAL) Take by mouth. rizatriptan (MAXALT-TOOL REPAIRER) 10 mg disintegrating tablet Take 1 tablet [...] discussed with the Patient or Patient's Authorized Veneer Joiner. As applicable, any other physician, advance practice provider, medical student, or other health professional student that will be observing or involved in the sensitive examination for educational or training purposes was discussed with the Patient or Authorized Veneer Joiner. The Patient or Authorized Veneer Joiner has agreed to proceed with the sensitive [...] Chaya Fermin APRN.CNM documented in this encounter [facility] 07-07-2024 Instructions Heather Steward MA - 07/07/2024 1:00 PM EST Please select the following link to access the [facility] Your Guide to a Healthy . [email or web address] documented in this encounter [facility] 01-01-2024 History of Present illness Narrative 1. [...] 2024 10:31 AM documented in this encounter [facility] 01-01-2024 Instructions Perla Bailey, OD - 01/01/2024 8:59 AM EDT Use Systane Complete or Refresh Relieva (preservative free) 2-3 times daily Use Systane, Refresh or Blink gel nightly before bed in both eyes documented in this encounter [facility] 04-30-2023 History of Present illness Narrative Pt LWBS d/t family emergency documented in this encounter [facility] 04-29-2023 History of Present illness Narrative This is an [facility] eVisit note for Bryce Griffinit/Questionnaire reviewed The chief complaint for the visit - Patient presents with: Ear Problem Sinus Problem Recommendations/Treatment plan - See My Chart Message to patient Neda Carr APRN.FUSING MACHINE OPERATOR I spent <5 minutes on this eVisit in chart review and coordination of care. documented in this encounter [facility] 01-09-2023 Instructions Jasmin Boyd APRN.FRANKLYN - 01/09/2023 7:38 AM EDT Get fasting labs completed today Increase Prozac 30 mg daily. Continue to take all medication as prescribed. Continue to eat a well balanced diet and get some form of exercise. Follow up in 1 month for medication check, may be a virtual or phone visit. Health Promotion: - Eat healthy -- go to [employer] to get started - Have a yearly [...] - Wear sunscreen documented in this encounter [facility] 01-09-2023 History of Present illness Narrative This is a 32 year old female who presents today with: Patient presents with: Physical: for school HISTORY OF PRESENT ILLNESS: Bryce Ramirez is a 32 year old female. Patient presents with: Physical: for school Patient of Dr. Pugh here in the office for wellness exam. School: Will need TB test. Will be going to [facility] for massage therapy. Diet: Eating well balanced [...] 2 capsules by mouth once daily. rizatriptan (MAXALT-TOOL REPAIRER) 10 mg disintegrating tablet Take 1 tablet [...] Onset Hypertension Mother Lipids Mother Heart Mother [place] at age 50 Hypertension Father Lipids Father No Known Problems Brother Hypertension Maternal Grandmother Lipids Maternal Grandmother Heart Maternal Grandfather 40 [place] age 40 Cancer Paternal Grandmother breast Hypertension [...] diet of 1000 mg/day for under 50, 1735-1534 mg/day for 50+ - Discussed need and [...] APRN.FRANKLYN This note was partially generated using Robodrom voice recognition system. Note was reviewed for accuracy. There may be minor misspellings or grammar miscues with Robodrom voice recognition. documented in this encounter [facility] 10-29-2022 Miscellaneous Notes Patient has been identified [...] Mercedes Walters MA documented in this encounter [facility] 10-03-2022 Miscellaneous Notes Patient active MyChart. Patient notified via [employer] message. Michelle Singh MA Please inform patient that her vitamin D is low on her labs, needs to be taking at least 1128-2496 international unit(s) a day of vitamin D3 with a meal. Also her cholesterol is high. Needs to cut back on fried/fast/fatty foods and red meats in her diet. Increase lean proteins and green vegetables. Ze Pugh DO documented in this encounter [facility] 09-30-2022 History of Present illness Narrative CC: [...] 1 capsule by mouth once daily. rizatriptan (MAXALT-TOOL REPAIRER) 10 mg disintegrating tablet Take 1 tablet [...] See patient instructions. Ze Pugh DO [address] [place] [address] documented in this encounter [facility] 08-16-2022 History of Present illness Narrative Radiology [...] 2022 7:34 PM documented in this encounter [facility] 06-08-2022 Miscellaneous Notes Pt notified via [employer] that Rx has been sent into pharmacy. [...] you. Kelsie Givens documented in this encounter [facility] 05-28-2022 History of Present illness Narrative CC: Bryce Ramirez is a 31 year old female who presents to the office for follow up HPI: [facility] on [facility]22 Mood, difficulty recently with [...] 1 capsule by mouth once daily. rizatriptan (MAXALT-TOOL REPAIRER) 10 mg disintegrating tablet Take 1 tablet [...] See patient instructions. 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 Went to [...] Has been going on for 2 years. Homer - Deep and positional. Feels like he's [...] tried: Depo Provera, Metformin, Progesterone only pills Homer: sexually active SFSI6: 16 (below 19 indicates Female Sexual Dysfunction) Urinary Symptoms: none PUF: 13 (20+ indicates probable Interstitial Cystitis) GI Symptoms: nausea and frequent diarrhea Diagnoses related to pelvic pain: Diagnoses related to pelvic pain: Other medical conditions PCOS Interventions tried for pain: lifestyle modification ( exercise, sleep hygiene, smoking cessation) [id number]- I used to exercise daily and eat [...] DATE OF EXAM: Jun 21 2021 9:27AM [facility] 0530 - CT ABD/PEL W IVCON / [...] consolidations. There is a small hiatal hernia. Gaggerman (topogram) images: No additional findings. DATE OF [...] TABLET BY MOUTH 3 TIMES DAILY rizatriptan (MAXALT-TOOL REPAIRER) 10 mg disintegrating tablet Take 1 tablet by mouth as needed. May repeat in 2 hours if needed No current facility-administered medications on file prior to visit. ALLERGIES No Known Allergies FAMILY HISTORY Problem Relation Age of Onset Hypertension Mother Lipids Mother Heart Mother [place] at age 50 Hypertension Father Lipids Father No Known Problems Brother Hypertension Maternal Grandmother Lipids Maternal Grandmother Heart Maternal Grandfather 40 [place] age 40 Cancer Paternal Grandmother breast Hypertension Paternal Grandfather Lipids Paternal Grandfather No Known Problems Daughter ROS OBJECTIVE LMP 01/30/2022 PHYSICAL EXAMINATION: Physical Exam Vitals and nursing note reviewed. Brim Ironer Hand present: patient declined. Constitutional: Appearance: Normal appearance. [...] 4 - Moderate documented in this encounter [facility] 04-26-2022 History of Present illness Narrative CC: [...] Onset Hypertension Mother Lipids Mother Heart Mother [place] at age 50 Hypertension Father Lipids Father No Known Problems Brother Hypertension Maternal Grandmother Lipids Maternal Grandmother Heart Maternal Grandfather 40 [place] age 40 Cancer Paternal Grandmother breast Hypertension Paternal Grandfather Lipids Paternal Grandfather No Known Problems Daughter Current Outpatient prescriptions: omeprazole (PRILOSEC) 20 mg capsule Take 2 capsules by mouth once daily. metFORMIN ER (GLUCOPHAGE XR) 500 mg 24 hr tablet TAKE 1 TABLET BY MOUTH 3 TIMES DAILY rizatriptan (MAXALT-TOOL REPAIRER) 10 mg disintegrating tablet Take 1 tablet [...] with more than 50% of the total [id number] time of the visit in counseling / coordination of care. To ER if develops chest pain, shortness of breath, or severe worsening of symptoms. Discussed risks, benefits, alternatives, and potential side effects of medications. Patient expressed understanding and agreed with the plan. Ze Pugh DO [address] [place] [address] documented in this encounter [facility] 03-26-2022 Miscellaneous Notes 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 for appointment with Shyanne Christie CNP, APRN on 05/14 @ 9:30. Laxmi Darden RN documented in this encounter [facility] 03-12-2022 Instructions Chaya Fermin APRN.CNM - 03/12/2022 10:43 AM EDT You have been referred to the Chronic Pelvic Pain Program. Prior to your appointment there is a questionnaire you will need to complete, please call for the appointment. documented in this encounter [facility] 03-12-2022 History of Present illness Narrative DISTANCE [...] ICD10: R10.2 (primary diagnosis) - CONSULT TO [employer]LE FINANCIAL APPLICATION DEVELOPER PELVIC PAIN - Reviewed option for OCP, [...] which included preparing to see the patient, [id number] patient care, completing clinical documentation, obtaining and/or reviewing separately obtained history, performing a medically appropriate examination, and counseling and educating the patient/family/caregiver. documented in this encounter [facility] 02-28-2022 History of Present illness Narrative This note was created using Warp 9riter. 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 Is going camping this weekend and doesn't have glasses. OTC not used. No antibiotic use in the last 60 days. ALLERGIES No Known Allergies Family History Reviewed Including Cardiac Diseases, Psychiatric Diseases, & Substance Abuse Problem: Heart Relation: Maternal Grandfather Age of Onset: 40 Comment: [place] age 40 Problem: Hypertension Relation: Mother Age of Onset: (Not Specified) Problem: Lipids Relation: Mother Age of Onset: (Not Specified) Problem: Heart Relation: Mother Age of Onset: (Not Specified) Comment: [place] at age 50 Problem: Hypertension Relation: Father [...] which included preparing to see the patient, [id number] patient care, completing clinical documentation, obtaining and/or reviewing separately obtained history, performing a medically appropriate examination, counseling and educating the patient/family/caregiver, and ordering medications, tests, or procedures. documented in this encounter [facility] 02-28-2022 Instructions Benita Wynn APRN.CNP - 02/28/2022 [...] with warning symptoms. documented in this encounter [facility] 11-03-2021 Miscellaneous Notes Patient has been identified [...] Bindu Taylor LPN documented in this encounter [facility] 10-05-2021 Miscellaneous Notes Patient phones requesting refills as follows: Pending Prescriptions Disp Refills RIZATRIPTAN 10 MG DISINTEGRATING TABLET 9 tablet 3 Sig: Take 1 tablet by mouth as needed. May repeat in 2 hours if needed ASHLY: No GISELA 03/19/21 NOV no upcoming appt Please review and advise. Alfredo Andrew LPN documented in this encounter [facility] 10-03-2021 Miscellaneous Notes Pt was seen by Melia CASILLAS 03/19/21. Mckenna Cedeno LPN I haven't seen this patient since 2013 Ze Pugh DO Pt reports pain with urination & urinary frequency. Has had UTIs in that past & thinks this is a uti. Pt going to UC today. Mckenna Cedeno LPN documented in this encounter [facility] 09-13-2021 History of Present illness Narrative This is an Express Care eVisit note for Bryce Gross/Questionnaire reviewed The chief complaint for the visit - Patient presents with: Cough Recommendations/Treatment plan - referral <5 mins to complete Roxana De Jesus APRN.FUSING MACHINE OPERATOR documented in this encounter [facility] 08-31-2021 History of Present illness Narrative 1. Myopia, bilateral 2. Dry eye syndrome of bilateral lacrimal glands Dispensed new trials Patient to let me know if she prefers Clariti 1-day or Acuvue moist 1 day. Perla Bailey, OD August 31, 2021 2:58 PM documented in this encounter [facility] 08-31-2021 History of Present illness Narrative This [...] Time spend was 5 minutes. Brayan Rossi APRN.FUSING MACHINE OPERATOR documented in this encounter [facility] 08-17-2021 Miscellaneous Notes Pharmacy calls in requesting the following refill(s): Pending Prescriptions Disp Refills OMEPRAZOLE 20 MG CAPSULE,DELAYED RELEASE 60 capsule 2 Sig: TAKE 2 CAPSULES BY MOUTH ONCE DAILY ASHLY: Yes documented in this encounter [facility] 02-11-2019 History of Past i llness Narrative [...] of this encounter (statuses as of 08/22/2021) [facility] of Past illness Narrative* Problem Noted [...] of this encounter (statuses as of 08/31/2021) [facility] Narrative* Problem Noted [...] of this encounter (statuses as of 08/31/2021) [facility] Narrative* Problem Noted [...] of this encounter (statuses as of 09/13/2021) [facility] Narrative* Problem Noted [...] of this encounter (statuses as of 10/03/2021) [facility] Narrative* Problem Noted [...] of this encounter (statuses as of 10/05/2021) [facility] Narrative* Problem Noted [...] of this encounter (statuses as of 10/25/2021) [facility] Narrative* Problem Noted [...] of this encounter (statuses as of 11/05/2021) [facility] Narrative* Problem Noted [...] of this encounter (statuses as of 12/10/2021) [facility] Narrative* Problem Noted [...] of this encounter (statuses as of 12/10/2021) [facility] Narrative* Problem Noted [...] of this encounter (statuses as of 02/28/2022) [facility] N[facility]ative* Problem Noted [...] of this encounter (statuses as of 03/13/2022) [facility] N[facility]ative* Problem Noted [...] of this encounter (statuses as of 03/26/2022) [facility] Narrative* Problem Noted [...] of this encounter (statuses as of 04/29/2022) [facility] Narrative* Problem Noted [...] of this encounter (statuses as of 05/14/2022) [facility] N[facility]ative* Problem Noted [...] of this encounter (statuses as of 05/30/2022) [facility] Narrative* Problem Noted [...] of this encounter (statuses as of 06/08/2022) [facility] Narrative* Problem Noted [...] of this encounter (statuses as of 08/17/2022) [facility] N[facility]ative* Problem Noted [...] of this encounter (statuses as of 09/30/2022) [facility] N[facility]ative* Problem Noted [...] of this encounter (statuses as of 10/03/2022) [facility] N[facility]ative* Problem Noted [...] of this encounter (statuses as of 10/30/2022) [facility] N[facility]ative* Problem Noted [...] of this encounter (statuses as of 01/09/2023) [facility] N[facility]* Problem Noted [...] of this encounter (statuses as of 02/05/2023) [facility] N[facility]ative* Problem Noted [...] of this encounter (statuses as of 04/30/2023) [facility] Narrative* Problem Noted [...] of this encounter (statuses as of 05/01/2023) [facility] Diagnosis Acute rhinosinusitis- Primary Acute sinusitis, unspecified [facility] Diagnosis Myopia, bilateral- Primary Myopia Dry eye syndrome of bilateral lacrimal glands Tear film insufficiency, unspecified [facility] Cough- Primary [facility] Diagnosis History of migraine Personal history of other disorders of nervous system and sense organs [facility] Diagnosis History of PCOS Personal history of other genital system and obstetric disorders [facility] Diagnosis Corneal irritation of right eye- Primary [facility] Diagnosis Pelvic pain in female- Primary Unspecified symptom associated with female genital organs Dysmenorrhea [facility] Diagnosis Anxiety and depression- Primary Dysthymic disorder [facility] Diagnosis Chronic pelvic pain in female- Primary Unspecified symptom associated with female genital organs Pelvic pain in female Unspecified symptom associated with female genital organs Primary dysmenorrhea Dysmenorrhea Pelvic and perineal pain Unspecified symptom associated with female genital organs High-tone pelvic floor dysfunction Other specified disorders of female genital organs Deep dyspareunia Stress incontinence, female Female stress incontinence [facility] Diagnosis Anxiety and depression- Primary Dysthymic disorder Situational insomnia Transient disorder of initiating or maintaining sleep Other migraine without status migrainosus, not intractable [facility] Diagnosis Primary dysmenorrhea Dysmenorrhea Pelvic and perineal pain Unspecified symptom associated with female genital organs Deep dyspareunia [facility] Diagnosis Anxiety and depression- Primary Dysthymic disorder Situational insomnia Transient disorder of initiating or maintaining sleep Other migraine without status migrainosus, not intractable Fatigue, unspecified type PCOS (polycystic ovarian syndrome) Polycystic ovaries Well adult exam Routine general medical examination at a health care facility [facility] Diagnosis Anxiety and depression Dysthymic disorder [facility] Diagnosis Wellness examination- Primary Anxiety and depression Dysthymic disorder PCOS (polycystic ovarian syndrome) Polycystic ovaries Other migraine without status migrainosus, not intractable Situational insomnia Transient disorder of initiating or maintaining sleep Vitamin D deficiency Unspecified vitamin D deficiency Hyperlipidemia LDL goal <100 Other and unspecified hyperlipidemia Screening-pulmonary TB Screening examination for pulmonary tuberculosis [facility] Diagnosis Treatment not available- Primary Procedure not carried out for other reasons [facility] Diagnosis Procedure not carried out- Primary Procedure not carried out for other reasons [facility] Diagnosis Myopia, bilateral- Primary Myopia Regular astigmatism of both eyes Regular astigmatism Dry eye syndrome of bilateral lacrimal glands Tear film insufficiency, unspecified [facility] Diagnosis Encounter for screening for malformation using ultrasound- Primary 13 weeks gestation of state, incidental [facility] Diagnosis Supervision of other high risk , antepartum- Primary 13 weeks gestation of state, incidental Anxiety and depression Dysthymic disorder resulting from in vitro fertilization in first trimester [place] state, incidental History of PCOS Personal history of other genital system and obstetric disorders [facility] Diagnosis Supervision of other high risk [...] of state, incidental [facility] Diagnosis Supervision of other high risk pregnancies, second trimester- Primary 16 weeks gestation of state, incidental [place] state, incidental Anxiety and depression Dysthymic disorder History of PCOS Personal history of other genital system and obstetric disorders Exposure to genital herpes Contact with or exposure to other viral diseases resulting from in vitro fertilization in first trimester Headaches [facility] Diagnosis Migraine without aura and without status migrainosus, not intractable- Primary Migraine without aura, without mention of intractable migraine without mention of status migrainosus [facility] Diagnosis Encounter for anatomic survey (HCC)- Primary Encounter for anatomic survey 20 weeks gestation of (HCC) state, incidental resulting from in vitro fertilization in second trimester ([facility]) [facility] Diagnosis Supervision of other high risk pregnancies, second trimester (HCC)- Primary Anxiety and depression Dysthymic disorder [place] (HCC) state, incidental 20 weeks gestation of ([facility]) state, incidental 12 weeks gestation of ([facility]) state, incidental [facility] Diagnosis Supervision of high risk in third trimester ([facility])- Primary Unspecified high-risk Obesity affecting in third trimester, unspecified obesity type ([facility]) [facility] Diagnosis [place] (HCC)- Primary state, incidental Maternal care for other (suspected) abnormality and damage, cardiac anomalies, not applicable or unspecified ([facility]) [facility] Diagnosis Supervision of other high risk pregnancies, second trimester (HCC)- Primary [place] (HCC) state, incidental Anxiety and depression Dysthymic disorder 24 weeks gestation of ([facility]) state, incidental Screening for diabetes mellitus [facility] Diagnosis Supervision of other high risk pregnancies, second trimester (HCC) 12 weeks gestation of ([facility]) state, incidental [facility] Diagnosis Encounter for ultrasound to check growth ([facility])- Primary Encounter for routine screening for malformation using ultrasonics Obesity affecting in third trimester, unspecified obesity type ([facility]) 28 weeks gestation of ([facility]) state, incidental [facility] Diagnosis Diet controlled gestational diabetes mellitus (GDM) in third trimester ([facility]) [facility] Diagnosis Supervision of high risk in third trimester (HCC)- Primary Unspecified high-risk 30 weeks gestation of ([facility]) state, incidental Diet controlled gestational diabetes mellitus (GDM) in third trimester (HCC) Anemia during in third trimester (HCC) resulting from in vitro fertilization in third trimester ([facility]) [facility] Diagnosis resulting from in vitro fertilization in third trimester ([facility])- Primary Supervision of high risk in third trimester ([facility]) Unspecified high-risk 28 weeks gestation of ([facility]) state, incidental [facility] Diagnosis Supervision of high risk in third trimester ([facility])- Primary Unspecified high-risk Anemia during in third trimester ([facility]) Diet controlled gestational diabetes mellitus (GDM) in third trimester ([facility]) 32 weeks gestation of ([facility]) state, incidental [facility] Diagnosis Encounter for ultrasound to check growth ([facility])- Primary Encounter for routine screening for malformation using ultrasonics Obesity affecting in third trimester, unspecified obesity type ([facility]) 32 weeks gestation of ([facility]) state, incidental [facility] Diagnosis resulting from in vitro fertilization in first trimester ([facility])- Primary [facility] Diagnosis Supervision of high risk in third trimester ([facility])- Primary Unspecified high-risk 34 weeks gestation of ([facility]) state, incidental Abnormal glucose in , antepartum ([facility]) Abnormal maternal glucose tolerance, antepartum Anemia during in third trimester ([facility]) Rubella non-immune status, antepartum ([facility]) Other specified complication, antepartum PCOS (polycystic ovarian syndrome) Polycystic ovaries [place] ([facility]) state, incidental resulting from in vitro fertilization in first trimester ([facility]) [facility] Diagnosis Anemia during in third trimester ([facility])- Primary Abnormal glucose in , antepartum ([facility]) Abnormal maternal glucose tolerance, antepartum [facility] Diagnosis Diet controlled gestational diabetes mellitus (GDM) in third trimester ([facility])- Primary [facility] Diagnosis resulting from in vitro fertilization in first trimester ([facility])- Primary Obesity affecting in third trimester, unspecified obesity type ([facility]) Diet controlled gestational diabetes mellitus (GDM) in third trimester ([facility]) [facility] Diagnosis Supervision of high risk in [...] from in vitro fertilization in first trimester ([facility]) [facility] Diagnosis 38 weeks gestation of (HCC)- Primary state, incidental Group beta Strep positive Supervision of high risk in third trimester (HCC) Unspecified high-risk [place] (HCC) state, incidental Diet controlled gestational diabetes mellitus (GDM) in third trimester ([facility]) [facility] Diagnostic Procedure Only (Routine) - Closed Specialty Diagnoses / Procedures Referred By Kevan ocasio Referred To Contact [facility] Diagnoses Primary dysmenorrhea Pelvic and perineal pain Deep dyspareunia Procedures MRI FEMALE PELVIS WO/W IVCON MRI PELVIS W/O & W/CONTRAST MATERIAL Shyanne Christie APRN.CNP [address] [place] [address] Mr Imaging Referral ID Status Reason Start Date Expiration Date V isits Requested Visits Authorized [id number] Closed Auto-Generate d Referral 07/28/2022 08/27/2022 1 1 [facility] Medications Administered Section Inactive Administered Medications - [...] Pelvic pain in female Procedures CONSULT TO ORACLE FINANCIAL APPLICATION DEVELOPER PELVIC PAIN OFFICE/OUTPATIENT [facility] MDM 60-74 MINUTES Chaya Fermin APRN.CNM [address] [place] [address] Referral ID Status Reason Start Date Expiration Date Visits Requested Visits Authorized [id number] Authorized PCP Requested Referral Auto-Generate d Referral 2 03/12/2023 1 1 Specialty Diagnoses / Procedures Referred By Kevan t Referred To Contact [facility] Diagnoses Primary dysmenorrhea High-tone pelvic floor dysfunction Deep dyspareunia Chronic pelvic pain in female Stress incontinence, female Procedures CONSULT TO PHYSICAL THERAPY PHYSICAL THERAPY EVALUATION HIGH COMPLEX 45 MINS Shyanne Christie, TAB.FUSING MACHINE OPERATOR [address] [place] [address] [facility] [address] [place] [address] Referral ID Status Reason Start Date Expiration Date Visits Requested Visits Authorized [id number] Pending Review Auto-Generat ed Referral 2 05/14/2023 1 1 Specialty Diagnoses / Procedures Referred By Kevan ocasio Referred To Contact [facility] Diagnoses Primary dysmenorrhea Pelvic and perineal pain Deep dyspareunia Procedures MRI FEMALE PELVIS WO/W IVCON MRI PELVIS W/O & W/CONTRAST MATERIAL Shyanne Christie, COMMUNITY DEVELOPMENT MANAGER.FUSING MACHINE OPERATOR [address] [place] [address] Mr Imaging Referral ID Status Reason Start Date Expiration Date Visits Requested Visits Authorized [id number] Pending Review Auto-Generat ed Referral 2 06/13/2023 [...] or prosecute any alcohol or drug abuse patient.[facility] the event this information is protected by the Federal Confidentiality of Alcohol and Drug Abuse Patient Records regulations: The Federal rules restrict any use of the information to criminally investigate or prosecute any alcohol or drug abuse patient.[facility] the event this information is protected by the Federal Confidentiality of Alcohol and Drug Abuse Patient Records regulations: The Federal rules restrict any use of the information to criminally investigate or prosecute any alcohol or drug abuse patient.[facility] the event this information is protected by the Federal Confidentiality of Alcohol and Drug Abuse Patient Records regulations: The Federal rules restrict any use of the information to criminally investigate or prosecute any alcohol or drug abuse patient.[facility] the event this information is protected by the Federal Confidentiality of Alcohol and Drug Abuse Patient Records regulations: The Federal rules restrict any use of the information to criminally investigate or prosecute any alcohol or drug abuse patient.[facility] the event this information is protected by the Federal Confidentiality of Alcohol and Drug Abuse Patient Records regulations: The Federal rules restrict any use of the information to criminally investigate or prosecute any alcohol or drug abuse patient.[facility] the event this information is protected by the Federal Confidentiality of Alcohol and Drug Abuse Patient Records regulations: The Federal rules restrict any use of the information to criminally investigate or prosecute any alcohol or drug abuse patient.[facility] the event this information is protected by the Federal Confidentiality of Alcohol and Drug Abuse Patient Records regulations: The Federal rules restrict any use of the information to criminally investigate or prosecute any alcohol or drug abuse patient.[facility] the event this information is protected by the Federal Confidentiality of Alcohol and Drug Abuse Patient Records regulations: The Federal rules restrict any use of the information to criminally investigate or prosecute any alcohol or drug abuse patient.[facility] the event this information is protected by the Federal Confidentiality of Alcohol and Drug Abuse Patient Records regulations: The Federal rules restrict any use of the information to criminally investigate or prosecute any alcohol or drug abuse patient.[facility] the event this information is protected by the Federal Confidentiality of Alcohol and Drug Abuse Patient Records regulations: The Federal rules restrict any use of the information to criminally investigate or prosecute any alcohol or drug abuse patient.[facility] the event this information is protected by the Federal Confidentiality of Alcohol and Drug Abuse Patient Records regulations: The Federal rules restrict any use of the information to criminally investigate or prosecute any alcohol or drug abuse patient.[facility] the event this information is protected by the Federal Confidentiality of Alcohol and Drug Abuse Patient Records regulations: The Federal rules restrict any use of the information to criminally investigate or prosecute any alcohol or drug abuse patient.[facility] the event this information is protected by the Federal Confidentiality of Alcohol and Drug Abuse Patient Records regulations: The Federal rules restrict any use of the information to criminally investigate or prosecute any alcohol or drug abuse patient.[facility] the event this information is protected by the Federal Confidentiality of Alcohol and Drug Abuse Patient Records regulations: The Federal rules restrict any use of the information to criminally investigate or prosecute any alcohol or drug abuse patient.[facility] the event this information is protected by the Federal Confidentiality of Alcohol and Drug Abuse Patient Records regulations: The Federal rules restrict any use of the information to criminally investigate or prosecute any alcohol or drug abuse patient.[facility] the event this information is protected by the Federal Confidentiality of Alcohol and Drug Abuse Patient Records regulations: The Federal rules restrict any use of the information to criminally investigate or prosecute any alcohol or drug abuse patient.[facility] the event this information is protected by the Federal Confidentiality of Alcohol and Drug Abuse Patient Records regulations: The Federal rules restrict any use of the information to criminally investigate or prosecute any alcohol or drug abuse patient.[facility] the event this information is protected by the Federal Confidentiality of Alcohol and Drug Abuse Patient Records regulations: The Federal rules restrict any use of the information to criminally investigate or prosecute any alcohol or drug abuse patient.[facility] CenterIn the event this information is protected by the Federal Confidentiality of Alcohol and Drug Abuse Patient Records regulations: The Federal rules restrict any use of the information to criminally investigate or prosecute any alcohol or drug abuse patient.[facility] CenterIn the event this information is protected by the Federal Confidentiality of Alcohol and Drug Abuse Patient Records regulations: The Federal rules restrict any use of the information to criminally investigate or prosecute any alcohol or drug abuse patient.[facility] CenterIn the event this information is protected by the Federal Confidentiality of Alcohol and Drug Abuse Patient Records regulations: The Federal rules restrict any use of the information to criminally investigate or prosecute any alcohol or drug abuse patient.[facility] CenterIn the event this information is protected by the Federal Confidentiality of Alcohol and Drug Abuse Patient Records regulations: The Federal rules restrict any use of the information to criminally investigate or prosecute any alcohol or drug abuse patient.[facility] CenterIn the event this information is protected by the Federal Confidentiality of Alcohol and Drug Abuse Patient Records regulations: The Federal rules restrict any use of the information to criminally investigate or prosecute any alcohol or drug abuse patient.[facility] CenterIn the event this information is protected by the Federal Confidentiality of Alcohol and Drug Abuse Patient Records regulations: The Federal rules restrict any use of the information to criminally investigate or prosecute any alcohol or drug abuse patient.[facility] CenterIn the event this information is protected by the Federal Confidentiality of Alcohol and Drug Abuse Patient Records regulations: The Federal rules restrict any use of the information to criminally investigate or prosecute any alcohol or drug abuse patient.[facility] CenterIn the event this information is protected by the Federal Confidentiality of Alcohol and Drug Abuse Patient Records regulations: The Federal rules restrict any use of the information to criminally investigate or prosecute any alcohol or drug abuse patient.[facility] CenterIn the event this information is protected by the Federal Confidentiality of Alcohol and Drug Abuse Patient Records regulations: The Federal rules restrict any use of the information to criminally investigate or prosecute any alcohol or drug abuse patient.[facility] CenterIn the event this information is protected by the Federal Confidentiality of Alcohol and Drug Abuse Patient Records regulations: The Federal rules restrict any use of the information to criminally investigate or prosecute any alcohol or drug abuse patient.[facility] CenterIn the event this information is protected by the Federal Confidentiality of Alcohol and Drug Abuse Patient Records regulations: The Federal rules restrict any use of the information to criminally investigate or prosecute any alcohol or drug abuse patient.[facility] CenterIn the event this information is protected by the Federal Confidentiality of Alcohol and Drug Abuse Patient Records regulations: The Federal rules restrict any use of the information to criminally investigate or prosecute any alcohol or drug abuse patient.[facility] CenterIn the event this information is protected by the Federal Confidentiality of Alcohol and Drug Abuse Patient Records regulations: The Federal rules restrict any use of the information to criminally investigate or prosecute any alcohol or drug abuse patient.[facility] CenterIn the event this information is protected by the Federal Confidentiality of Alcohol and Drug Abuse Patient Records regulations: The Federal rules restrict any use of the information to criminally investigate or prosecute any alcohol or drug abuse patient.[facility] CenterIn the event this information is protected by the Federal Confidentiality of Alcohol and Drug Abuse Patient Records regulations: The Federal rules restrict any use of the information to criminally investigate or prosecute any alcohol or drug abuse patient.[facility] CenterIn the event this information is protected by the Federal Confidentiality of Alcohol and Drug Abuse Patient Records regulations: The Federal rules restrict any use of the information to criminally investigate or prosecute any alcohol or drug abuse patient.[facility] CenterIn the event this information is protected by the Federal Confidentiality of Alcohol and Drug Abuse Patient Records regulations: The Federal rules restrict any use of the information to criminally investigate or prosecute any alcohol or drug abuse patient.[facility] CenterIn the event this information is protected by the Federal Confidentiality of Alcohol and Drug Abuse Patient Records regulations: The Federal rules restrict any use of the information to criminally investigate or prosecute any alcohol or drug abuse patient.[facility] CenterIn the event this information is protected by the Federal Confidentiality of Alcohol and Drug Abuse Patient Records regulations: The Federal rules restrict any use of the information to criminally investigate or prosecute any alcohol or drug abuse patient.[facility] CenterIn the event this information is protected by the Federal Confidentiality of Alcohol and Drug Abuse Patient Records regulations: The Federal rules restrict any use of the information to criminally investigate or prosecute any alcohol or drug abuse patient.[facility] CenterIn the event this information is protected by the Federal Confidentiality of Alcohol and Drug Abuse Patient Records regulations: The Federal rules restrict any use of the information to criminally investigate or prosecute any alcohol or drug abuse patient.[facility] CenterIn the event this information is protected by the Federal Confidentiality of Alcohol and Drug Abuse Patient Records regulations: The Federal rules restrict any use of the information to criminally investigate or prosecute any alcohol or drug abuse patient.[facility] CenterIn the event this information is protected by the Federal Confidentiality of Alcohol and Drug Abuse Patient Records regulations: The Federal rules restrict any use of the information to criminally investigate or prosecute any alcohol or drug abuse patient.[facility] CenterIn the event this information is protected by the Federal Confidentiality of Alcohol and Drug Abuse Patient Records regulations: The Federal rules restrict any use of the information to criminally investigate or prosecute any alcohol or drug abuse patient.[facility] CenterIn the event this information is protected by the Federal Confidentiality of Alcohol and Drug Abuse Patient Records regulations: The Federal rules restrict any use of the information to criminally investigate or prosecute any alcohol or drug abuse patient.[facility] CenterIn the event this information is protected by the Federal Confidentiality of Alcohol and Drug Abuse Patient Records regulations: The Federal rules restrict any use of the information to criminally investigate or prosecute any alcohol or drug abuse patient.[facility] CenterIn the event this information is protected by the Federal Confidentiality of Alcohol and Drug Abuse Patient Records regulations: The Federal rules restrict any use of the information to criminally investigate or prosecute any alcohol or drug abuse patient.[facility] CenterIn the event this information is protected by the Federal Confidentiality of Alcohol and Drug Abuse Patient Records regulations: The Federal rules restrict any use of the information to criminally investigate or prosecute any alcohol or drug abuse patient.[facility] CenterIn the event this information is protected by the Federal Confidentiality of Alcohol and Drug Abuse Patient Records regulations: The Federal rules restrict any use of the information to criminally investigate or prosecute any alcohol or drug abuse patient.[facility] CenterIn the event this information is protected by the Federal Confidentiality of Alcohol and Drug Abuse Patient Records regulations: The Federal rules restrict any use of the information to criminally investigate or prosecute any alcohol or drug abuse patient.[facility] CenterIn the event this information is protected by the Federal Confidentiality of Alcohol and Drug Abuse Patient Records regulations: The Federal rules restrict any use of the information to criminally investigate or prosecute any alcohol or drug abuse patient.[facility] CenterIn the event this information is protected by the Federal Confidentiality of Alcohol and Drug Abuse Patient Records regulations: The Federal rules restrict any use of the information to criminally investigate or prosecute any alcohol or drug abuse patient.[facility] CenterIn the event this information is protected by the Federal Confidentiality of Alcohol and Drug Abuse Patient Records regulations: The Federal rules restrict any use of the information to criminally investigate or prosecute any alcohol or drug abuse patient.[facility] CenterIn the event this information is protected by the Federal Confidentiality of Alcohol and Drug Abuse Patient Records regulations: The Federal rules restrict any use of the information to criminally investigate or prosecute any alcohol or drug abuse patient.[facility] CenterIn the event this information is protected by the Federal Confidentiality of Alcohol and Drug Abuse Patient Records regulations: The Federal rules restrict any use of the information to criminally investigate or prosecute any alcohol or drug abuse patient.[facility] CenterIn the event this information is protected by the Federal Confidentiality of Alcohol and Drug Abuse Patient Records regulations: The Federal rules restrict any use of the information to criminally investigate or prosecute any alcohol or drug abuse patient.[facility] CenterIn the event this information is protected by the Federal Confidentiality of Alcohol and Drug Abuse Patient Records regulations: The Federal rules restrict any use of the information to criminally investigate or prosecute any alcohol or drug abuse patient.[facility] CenterIn the event this information is protected by the Federal Confidentiality of Alcohol and Drug Abuse Patient Records regulations: The Federal rules restrict any use of the information to criminally investigate or prosecute any alcohol or drug abuse patient.[facility] CenterIn the event this information is protected by the Federal Confidentiality of Alcohol and Drug Abuse Patient Records regulations: The Federal rules restrict any use of the information to criminally investigate or prosecute any alcohol or drug abuse patient.[facility] CenterIn the event this information is protected by the Federal Confidentiality of Alcohol and Drug Abuse Patient Records regulations: The Federal rules restrict any use of the information to criminally investigate or prosecute any alcohol or drug abuse patient.[facility] Reason for Visit (unrecogniz ed section and content) Reason Comments Refill Request Reason Comments Sinus Problem Reason Comments Contact Lens Follow Up Reason Comments Cough Reason Comments UTI Reason Onset Date Comments Refill Request 10/05/2021 Reason Onset Date Comments Refill Request 12/08/2021 Reason Onset Date Comments Refill Request 12/07/2021 Reason Comments Eye Problem Left eye Reason Comments Menstrual Problem Reason Comments 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 Reason Comments Depression Post Reason Comments Pelvic Pain Specialty Diagnoses / Procedures Referred By Contac t Referred To Contact Diagnoses Pelvic pain in female Procedures CONSULT TO ORACLE FINANCIAL APPLICATION DEVELOPER PELVIC PAIN OFFICE/OUTPATIENT [facility] 60-74 MINUTES Chaya Fermin APRN.CNM [address] [place] [address] Referral ID Status Reason Start Date Expiration Date V isits Requested Visits Authorized [id number] Closed PCP Requested Referral Auto-Generated Referral 03/12/2022 03/12/2023 1 1 Reason Comments Follow Up Reason Onset Date Comments Refill Request 06/08/2022 Reason Comments Radiology MRI Specialty Diagnoses / Procedures Referred By Contac t Referred To Contact MR IMAGING Diagnoses Primary dysmenorrhea Pelvic and perineal pain Deep dyspareunia Procedures MRI FEMALE PELVIS WO/W IVCON MRI PELVIS W/O & W/CONTRAST MATERIAL Shyanne Christie APRN.FUSING MACHINE OPERATOR [address] [place] [address] Mr Imaging Referral ID Status Reason Start Date Expiration Date V isits Requested Visits Authorized [id number] Closed Auto-Generate d Referral 07/28/2022 08/27/2022 1 1 Reason Comments F/U 3 Month Reason Comments Results Reason Onset Date Comments Refill Request 10/29/2022 Reason Comments Physical for school Reason Comments Ear Problem Sinus Problem Reason Comments Contact lens evaluation Dry Eye Syndrome Follow Up Reason Comments US Specialty Diagnoses / Procedures Referred By Contac t Referred To Contact [facility] Diagnoses with fetus of unknown gestational age Procedures OBSTETRIC ULTRASOUND WHI US PREG UTERUS AFTER 1ST TRIMEST GESTATION Chaya Fermin APRN.CNM [address] [place] [address] Phone: tel: fax: [facility] [address] [place] [address] Referral ID Status Reason Start Date Expiration Date V isits Requested Visits Authorized [id number] Closed Auto-Generate d Referral 07/07/2024 07/07/2025 1 1 Reason Onset Date Comments Care 07/12/2024 Reason Comments Care Reason Onset Date Comments Care 08/02/2024 Reason Comments Consult Specialty Diagnoses / Procedures Referred By Contac t Referred To Contact Diagnoses Supervision of other high risk pregnancies, second trimester Other migraine without status migrainosus, not intractable Procedures CONSULT TO HEADACHE CLINIC OFFICE/OUTPATIENT [facility] 60 MINUTES Chaya Fermin APRN.CNM [address] [place] [address] Phone: tel: fax:[phone] Referral ID Status Reason Start Date Expiration Date V isits Requested Visits Authorized [id number] Closed PCP Requested Referral 07/22/2024 07/22/2025 1 1 Reason Onset Date Comments Refill Request 07/22/2024 Specialty Diagnoses / Procedures Referred By Contac t Referred To Contact [facility] Diagnoses Supervision of other high risk pregnancies, second trimester (HCC) 12 weeks gestation of (HCC) Procedures OBSTETRIC ULTRASOUND WHI US PREG UTERUS AFTER 1ST TRIMEST GESTATION Chaya Fermin APRN.CNM [address] [place] [address] Phone: tel: fax: [address] [address] Referral ID Status Reason Start Date Expiration Date V isits Requested Visits Authorized [id number] Closed Auto-Generate d Referral 07/07/2024 07/07/2025 1 1 Reason Onset Date Comments Care 08/30/2024 Reason Comments Consult echo Reason Comments Request Outside Medical Records Reason Onset Date Comments Care 09/27/2024 Reason Onset Date Comments Refill Request 10/17/2024 Specialty Diagnoses / Procedures Referred By Contac t Referred To Contact [facility] Diagnoses Supervision of high risk in third trimester (HCC) Obesity affecting in third trimester, unspecified obesity type (HCC) Procedures OBSTETRIC ULTRASOUND WHI US PREG UTERUS AFTER 1ST TRIMEST GESTATION Chaya Fermin APRN.[place] [address] [place] [address] Phone: tel: fax: [address] [phone] Referral ID Status Reason Start Date Expiration Date V isits Requested Visits Authorized [id number] Closed Auto-Generate d Referral 08/30/2024 08/30/2025 4 1 Reason Comments GDM Specialty Diagnoses / Procedures Referred By Contac t Referred To Contact Diagnoses Diet controlled gestational diabetes mellitus (GDM) in third trimester (HCC) Procedures CONSULT TO DIABETES EDUCATION [facility] MEDICAL NUTRITION ASSMT&IVNTJ INDIV EACH 15 [place] MEDICAL NUTRITION ASSMT&IVNTJ INDIV EACH 15 [place] MEDICAL NUTRITION ASSMT&IVNTJ INDIV EACH 15 [place] MEDICAL NUTRITION ASSMT&IVNTJ INDIV EACH 15 [place] Chaya Fermin APRN.[place] [address] [place] [address] Phone: tel: fax:[phone] Referral ID Status Reason Start Date Expiration Date V isits Requested Visits Authorized [id number] Closed PCP Requested Referral 10/27/2024 10/27/2025 1 1 Reason Onset Date Comments Care 11/08/2024 Reason Onset Date Comments Care 10/25/2024 Reason Onset Date Comments Care 11/24/2024 Reason Onset Date Comments Care 12/06/2024 Specialty Diagnoses / Procedures Referred By Contnoble t Referred To Contact [facility] Diagnoses Diet controlled gestational diabetes mellitus (GDM) in third trimester (HCC) Procedures OBSTETRIC ULTRASOUND WHI US PREG UTERUS AFTER 1ST TRIMEST GESTATION Chaya Fermin APRN.CNSrinivas [address] [place] [address] Phone: tel: fax: [facility] [address] [place] [address] Referral ID Status Reason Start Date Expiration Date V isits Requested Visits Authorized [id number] Closed Auto-Generate d Referral 10/27/2024 10/27/2025 5 1 Reason Onset Date Comments Care 12/27/2024 Reason Onset Date Comments Care 01/03/2025 Care Teams (unrecognized sec tion and content) Food Handler Relationship Specialty Start Date End Date Ze Pugh DO [address] [place] [address] PCP - General Family Practice 07/12/13 Food Handler Relationship Specialty Start Date End Date Ze Pugh DO [address] [place] [address] PCP - General Family Practice 07/12/13 Food Handler Relationship Specialty Start Date End Date Ze Pugh DO [address] [place] [address] PCP - General Family Practice 07/12/13 Food Handler Relationship Specialty Start Date End Date Ze Pugh DO [address] [place] [address] PCP - General Family Practice 07/12/13 Food Handler Relationship Specialty Start Date End Date Ze Pugh DO [address] [place] [address] PCP - General Family Practice 07/12/13 Food Handler Relationship Specialty Start Date End Date Ze Pugh, DO [address] [place] [address] PCP - General Family Practice 07/12/13 Food Handler Relationship Specialty Start Date End Date Ze Pugh, DO [address] [place] [address] PCP - General Family Practice 07/12/13 Food Handler Relationship Specialty Start Date End Date Ze Pugh, DO [address] [place] [address] PCP - General Family Medicine 07/12/13 Food Handler Relationship Specialty Start Date End Date Ze Pugh, DO [address] [place] [address] PCP - General Family Medicine 07/12/13 Food Handler Relationship Specialty Start Date End Date Ze Pugh, DO [address] [place] [address] PCP - General Family Medicine 07/12/13 Food Handler Relationship Specialty Start Date End Date Ze Pugh, DO [address] [place] [address] PCP - General Family Medicine 07/12/13 Food Handler Relationship Specialty Start Date End Date Ze Pugh, DO [address] [place] [address] PCP - General Family Medicine 07/12/13 Food Handler Relationship Specialty Start Date End Date Ze Pugh, DO [address] [place] [address] PCP - General Family Medicine 07/12/13 Food Handler Relationship Specialty Start Date End Date Ze Pugh, DO [address] [place] [address] PCP - General Family Medicine 07/12/13 Food Handler Relationship Specialty Start Date End Date Ze Pugh, DO [address] [place] [address] PCP - General Family Medicine 07/12/13 Food Handler Relationship Specialty Start Date End Date Ze Pugh DO [address] [place] [address] PCP - General Family Medicine 07/12/13 Food Handler Relationship Specialty Start Date End Date Ze Pugh, DO [address] [place] [address] PCP - General Family Medicine 07/12/13 Food Handler Relationship Specialty Start Date End Date Ze Pugh DO [address] [place] [address] PCP - General Family Medicine 07/12/13 Food Handler Relationship Specialty Start Date End Date Ze uPgh DO [address] [place] [address] PCP - General Family Medicine 07/12/13 Food Handler Relationship Specialty Start Date End Date Ze Pugh DO [address] [place] [address] PCP - General Family Medicine 07/12/13 Food Handler Relationship Specialty Start Date End Date Ze Pugh DO [address] [place] [address] PCP - General Family Medicine 07/12/13 Food Handler Relationship Specialty Start Date End Date Ze Pugh DO [address] [place] [address] PCP - General Family Medicine 07/12/13 Food Handler Relationship Specialty Start Date End Date Ze Pugh DO [address] [place] [address] PCP - General Family Medicine 07/12/13 Radha Brown, COMMUNITY DEVELOPMENT MANAGER.FUSING MACHINE OPERATOR [address] [place] [address] Senior Business Development Analyst Family [facility] 05/02/24 [facility], COMMUNITY DEVELOPMENT MANAGER.FUSING MACHINE OPERATOR [address] [place] [address] [facility] 05/02/24 Food Handler Relationship Specialty Start Date End Date Ze Pugh DO [address] [place] [address] PCP - General Family Medicine 07/12/13 Radha Brown, COMMUNITY DEVELOPMENT MANAGER.FUSING MACHINE OPERATOR [address] [place] [address] Senior Business Development [facility] 05/02/24 CecilLacey, COMMUNITY DEVELOPMENT MANAGER.FUSING MACHINE OPERATOR [address] [place] [address] Senior Business Development [facility] 05/02/24 Food Handler Relationship Specialty Start Date End Date Ze Pugh DO [address] [place] [address] PCP - General Family Medicine 07/12/13 Radha Brown, COMMUNITY DEVELOPMENT MANAGER.FUSING MACHINE OPERATOR [address] [place] [address] Senior Business Development Analyst [facility] 05/02/24 CecilLacey, COMMUNITY DEVELOPMENT MANAGER.FUSING MACHINE OPERATOR [address] [place] [address] Senior Business Development Analyst [facility] 05/02/24 Food Handler Relationship Specialty Start Date End Date Ze Pugh DO [address] [place] [address] PCP - General Family Medicine 07/12/13 Radha Brown, COMMUNITY DEVELOPMENT MANAGER.FUSING MACHINE OPERATOR [address] [place] [address] Senior Business Development Analyst Family [facility] 05/02/24 CecilLacey, COMMUNITY DEVELOPMENT MANAGER.FUSING MACHINE OPERATOR [address] [place] [address] [facility] 05/02/24 Food Handler Relationship Specialty Start Date End Date Ze Pugh DO [address] [place] [address] PCP - General Family Medicine 07/12/13 Radha Brown, COMMUNITY DEVELOPMENT MANAGER.FUSING MACHINE OPERATOR [address] [place] [address] [facility] Business [facility] 05/02/24 CecilLacey, COMMUNITY DEVELOPMENT MANAGER.FUSING MACHINE OPERATOR [address] [place] [address] [facility] Business [facility] 05/02/24 Food Handler Relationship Specialty Start Date End Date Ze Pugh DO [address] [place] [address] PCP - General Family Medicine 07/12/13 Radha Brown, COMMUNITY DEVELOPMENT MANAGER.FUSING MACHINE OPERATOR [address] [place] [address] Senior Business Development Analyst [facility] 05/02/24 Lacey Jacob, COMMUNITY DEVELOPMENT MANAGER.FUSING MACHINE OPERATOR [address] [place] [address] Senior Business Development Analyst [facility] 05/02/24 Food Handler Relationship Specialty Start Date End Date Ze Pugh DO [address] [place] [address] PCP - General Family Medicine 07/12/13 Lacey Jacob, COMMUNITY DEVELOPMENT MANAGER.FUSING MACHINE OPERATOR [address] [place] [address] [facility] Business [facility] 05/02/24 Food Handler Relationship Specialty Start Date End Date Ze Pugh DO [address] [place] [address] PCP - General Family Medicine 07/12/13 Lacey Jacob, COMMUNITY DEVELOPMENT MANAGER.FUSING MACHINE OPERATOR [address] [place] [address] Senior Business [facility] 05/02/24 Food Handler Relationship Specialty Start Date End Date Ze Pugh DO [address] [place] [address] PCP - General Family Medicine 07/12/13 Radha Brown, COMMUNITY DEVELOPMENT MANAGER.FUSING MACHINE OPERATOR [address] [place] [address] Senior Business Development Analyst Family Medicine 05/02/24 08/13/24 Lacey Jacob, COMMUNITY DEVELOPMENT MANAGER.FUSING MACHINE OPERATOR [address] [place] [address] Senior Business Development Analyst Family [facility] 05/02/24 Food Handler Relationship Specialty Start Date End Date Ze Pugh DO [address] [place] [address] PCP - General Family Medicine 07/12/13 Lacey Jacob, COMMUNITY DEVELOPMENT MANAGER.FUSING MACHINE OPERATOR [address] [place] [address] [facility] 05/02/24 Food Handler Relationship Specialty Start Date End Date Ze Pugh DO [address] [place] [address] PCP - General Family Medicine 07/12/13 Lacey Jacob, COMMUNITY DEVELOPMENT MANAGER.FUSING MACHINE OPERATOR [address] [place] [address] [facility] 05/02/24 Food Handler Relationship Specialty Start Date End Date Ze Pugh DO [address] [place] [address] PCP - General Family Medicine 07/12/13 Lacey Jacob, COMMUNITY DEVELOPMENT MANAGER.FUSING MACHINE OPERATOR [address] [place] [address] [facility] 05/02/24 Food Handler Relationship Specialty Start Date End Date Ze Pugh DO [address] [place] [address] PCP - General Family Medicine 07/12/13 Lacey Jacob, COMMUNITY DEVELOPMENT MANAGER.FUSING MACHINE OPERATOR [address] [place] [address] Senior Business Development Analyst Family [facility] 05/02/24 Food Handler Relationship Specialty Start Date End Date Ze Pugh DO [address] [place] [address] PCP - General Family Medicine 07/12/13 [facility], COMMUNITY DEVELOPMENT MANAGER.FUSING MACHINE OPERATOR [address] [place] [address] [facility] 05/02/24 Food Handler Relationship Specialty Start Date End Date Ze Pugh DO [address] [place] [address] PCP - General Family Medicine 07/12/13 CecilLacey, COMMUNITY DEVELOPMENT MANAGER.FUSING MACHINE OPERATOR [address] [place] [address] [facility] 05/02/24 Food Handler Relationship Specialty Start Date End Date Ze Pugh DO [address] [place] [address] PCP - General Family Medicine 07/12/13 CecilLacey, COMMUNITY DEVELOPMENT MANAGER.FUSING MACHINE OPERATOR [address] [place] [address] [facility] 05/02/24 Food Handler Relationship Specialty Start Date End Date Ze Pugh DO [address] [place] [address] PCP - General Family Medicine 07/12/13 CecilLacey, COMMUNITY DEVELOPMENT MANAGER.FUSING MACHINE OPERATOR [address] [place] [address] Senior Business Development Analyst Family [facility] 05/02/24 Food Handler Relationship Specialty Start Date End Date Ze Pugh DO [address] [place] [address] PCP - General Family Medicine 07/12/13 Lacey Jacob, COMMUNITY DEVELOPMENT MANAGER.FUSING MACHINE OPERATOR [address] [place] [address] Senior Business Development Analyst Family Medicine 05/02/24 Augustina Robert, COMMUNITY DEVELOPMENT MANAGER.FUSING MACHINE OPERATOR [address] [place] [address] [facility] 11/08/24 Food Handler Relationship Specialty Start Date End Date Ze Pugh DO [address] [place] [address] PCP - General Family Medicine 07/12/13 CecilLacey, COMMUNITY DEVELOPMENT MANAGER.FUSING MACHINE OPERATOR [address] [place] [address] [facility] 05/02/24 Augustina Robert, COMMUNITY DEVELOPMENT MANAGER.FUSING MACHINE OPERATOR [address] [place] [address] [facility] 11/08/24 Food Handler Relationship Specialty Start Date End Date Ze Pugh DO [address] [place] [address] PCP - General Family Medicine 07/12/13 CecilLacey, COMMUNITY DEVELOPMENT MANAGER.FUSING MACHINE OPERATOR [address] [place] [address] Senior Business Development Analyst Family Medicine 05/02/24 Augustina Robert, COMMUNITY DEVELOPMENT MANAGER.FUSING MACHINE OPERATOR [address] [facility] [place] [address] Senior Business Development Analyst Family [facility] 11/08/24 Food Handler Relationship Specialty Start Date End Date Ze Pugh DO [address] [place] [address] PCP - General Family Medicine 07/12/13 Lacey Jacob, COMMUNITY DEVELOPMENT MANAGER.FUSING MACHINE OPERATOR [address] [place] [address] Senior Business Development Analyst Family Medicine 05/02/24 Augustina Robert, COMMUNITY DEVELOPMENT MANAGER.FUSING MACHINE OPERATOR [address] [place] [address] Senior Business Development Analyst Family [facility] 11/08/24 Food Handler Relationship Specialty Start Date End Date Ze Pugh DO [address] [place] [address] PCP - General Family Medicine 07/12/13 Lacey Jacob, COMMUNITY DEVELOPMENT MANAGER.FUSING MACHINE OPERATOR [address] [place] [address] Senior Business Development Analyst Family Medicine 05/02/24 Augustina Robert, COMMUNITY DEVELOPMENT MANAGER.FUSING MACHINE OPERATOR [address] [facility] [address] Senior Business Development Analyst Family [facility] 11/08/24 Food Handler Relationship Specialty Start Date End Date Ze Pugh DO [address] [place] [address] PCP - General Family Medicine 07/12/13 Lacey Jacob, COMMUNITY DEVELOPMENT MANAGER.FUSING MACHINE OPERATOR [address] [place] [address] Senior Business Development Analyst Family [facility] 05/02/24 Augustina Robert, COMMUNITY DEVELOPMENT MANAGER.FUSING MACHINE OPERATOR [address] [place] [address] Senior Business Development Analyst Family [facility] 11/08/24 Food Handler Relationship Specialty Start Date End Date Ze Pugh DO [address] [place] [address] PCP - General Family Medicine 07/12/13 Lacey Jacob, COMMUNITY DEVELOPMENT MANAGER.FUSING MACHINE OPERATOR [address] [place] [address] Senior Business Development Analyst Family Medicine 05/02/24 Augustina Robert, COMMUNITY DEVELOPMENT MANAGER.FUSING MACHINE OPERATOR [address] [place] [address] Senior Business Development Analyst Family [facility] 11/08/24 Food Handler Relationship Specialty Start Date End Date Ze Pugh DO [address] [place] [address] PCP - General Family Medicine 07/12/13 Lacey Jacob, COMMUNITY DEVELOPMENT MANAGER.FUSING MACHINE OPERATOR [address] [place] [address] Senior Business Development Analyst Family [facility] 05/02/24 Augustina Robert, COMMUNITY DEVELOPMENT MANAGER.FUSING MACHINE OPERATOR [address] [place] [address] Senior Business Development Analyst Family [facility] 11/08/24 Food Handler Relationship Specialty Start Date End Date Ze Pugh DO [address] [place] [address] PCP - General Family Medicine 07/12/13 Lacey Jacob APRN.FUSING MACHINE OPERATOR [address] [place], [place] [id number] [facility] 05/02/24 Augustina Robert APRN.FUSING MACHINE OPERATOR [address] [place], [place] [address] [facility] 11/08/24 Food Handler Relationship Specialty Start Date End Date Ze Pugh DO [address] [place], [place] [address] PCP - General Family Medicine 07/12/13 Lacey Jacob, TAB.FUSING MACHINE OPERATOR [address] [place], [place] [address] [facility] 05/02/24 Augustina Robert, TAB.FUSING MACHINE OPERATOR [address] [place], [place] [id number] [facility] 11/08/24 INFORMATION SOURCE (unrecogn ized section and content) DATE CREATED AUTHOR 09/30/2024 [facility] DATE CREATED AUTHOR AUTHOR'S ORGANIZ ATION 12/17/2024 [facility] DATE CREATED AUTHOR AUTHOR'S ORGANIZ ATION 01/04/2025 [facility] FOR RECORDS PERTAINING TO PATIENTS WHO ARE [...] BE BASED ON THE PRIMARY CLINICAL RECORDS. [facility]. provides no warranty or guarantee of the accuracy or completeness of information in this document.
--- OUTSIDE RECORDS SUMMARY | 2025-01-06 01:20 | XMS RPT_ITS | CCD ---
Author Organization [facility] Care Team Providers Care Deblocker Name Role Phone Ze Pugh DO Primary Care Provider Ze Pugh DO Primary Care Provider Brown LITIGATION EXAMINER.Radha ESTES Unavailable [facility] LITIGATION EXAMINER.Lacey ESTES Unavailable Brown LITIGATION EXAMINER.Radha ESTES Unavailable MOS[facility] CARUSO Attending Unavailable PUGH, ZE L Primary Care Unavailable PUGH, ZE L Primary Care Unavailable Jakob LITIGATION EXAMINER.Augustina ESTES Unavailable Marybeth Escamilla Referring Unavailable Marybeth [...] of other high risk pregnancies, second trimester ([facility]) , 12 weeks gestation of ([facility]) Take 1 tablet by mouth once [...] trimester (HCC) , 12 weeks gestation of ([facility]) Take by mouth. Active ergocalciferol, vitamin [...] tablet Indications: Anemia during in third trimester ([facility]) Take 1 tablet by mouth every other day. 30 tablet 3 10/26/2024 Active isopropyl alcohol 0.7 ml/ml medicated pad (12 sources) Start: 10-27-2024 alcohol swabs (ALCOHOL PREP PADS) Indications: Diet controlled gestational diabetes mellitus (GDM) in third trimester ([facility]) Use as directed to check glucose [...] ac ( ORAL) Take by mouth. Active Bzetnopg-Nk-Vsh-Fe- FA tab (20 sources) Start: 08-30-2024 take 1 tablet by mouth once daily Ocmnqspg-Ms-Zcq-Fe- FA tab Take 1 tablet by mouth [...] M OUTH ONCE DAILY polyethylene glycol 3350 768454 mg / potassium chloride 2970 mg / sodium bicarbonate 6740 mg / sodium chloride 5860 mg / sodium sulfate 12608 mg powder for oral solution (3 sources) [...] mouth every two hours as needed rizatriptan (MAXALT-TOBACCO WAREHOUSE AGENT) 10 mg disintegrating tablet Indications: Other migraine without status migrainosus, not intractable Take 1 tablet (10 mg) by mouth as needed. May repeat in 2 hours if needed 12 tablet 06/14/2023 08/30/2024 Discontinued (Course of therapy completed) Start: 01-16-2021 End: 05-28-2022 take 1 tablet by mouth every two hours as needed rizatriptan (MAXALT-TOBACCO WAREHOUSE AGENT) 10 mg disintegrating tablet Indications: Other migraine [...] affecting in third trimester, unspecified obesity type ([facility])] Onset: 10-25-2024 Chronic Other complications of (10 sources) Rubella non-immune; Translations: [Supervision of other high risk pregnancies, unspecified trimester] Onset: 12-06-2024 12-06-2024 Episodic Other complications of (1 source) Supervision of other high risk pregnancies, unspecified trimester; Translations: [Rubella non-immune status, antepartum ([facility])] Onset: 12-06-2024 Episodic Other endocrine disorders [...] Unclassified (1 source) Rubella non-immune status, antepartum ([facility]); Translations: [Rubella non-immune status, antepartum ([facility])] Onset: 12-06-2024 Past or Other Problems [...] 5 Glucose Ql (U) Negative Neg mg/dL [facility] Interpretation and review of laboratory results Normal [facility] Protein.monoclonal (U) [Mass/Vol] Negative Neg mg/dL [facility] Examination level ultrasound on 12-27-2024 [facility] Radiology Study observation (narrative) [facility] ROUTINE, GROUP B ST REPTOCOCCUS BY PCRon 12-27-2024 ROUTINE, GROUP B STREPTOCOCCUS BY PCR Detected Abnormal [facility] Comment on above: Performed By: #### G BPCR ####[facility] LABCLIA [id number] [place] [address] [place] URINE OB DIP B/Oon 5 Glucose Ql (U) Negative Neg mg/dL [facility] Protein.monoclonal (U) [Mass/Vol] Negative Neg mg/dL [facility] URINE OB DIP B/Oon 5 Glucose Ql (U) Negative Neg mg/dL [facility] Interpretation and review of laboratory results Normal [facility] Protein.monoclonal (U) [Mass/Vol] trace Neg mg/dL [facility] CBC W Auto Differential pane l (Bld)on 11-24-2024 Basophils (Bld) [#/Vol] 0.03 10*3/uL [facility] Basophils/100 WBC (Bld) 0.3 % [facility] Differential cell count method Nom (Bld) Auto [facility] Eosinophils (Bld) [#/Vol] 0.12 10*3/uL [facility] Eosinophils/100 WBC (Bld) 1 % [facility] Erythrocyte distribution width (RBC) [Ratio] 15 % 11.5 - 15.0 % [facility] Hematocrit (Bld) [Volume fraction] 32.6 % Low 36.0 - 46.0 % [facility] Hemoglobin (Bld) [Mass/Vol] 10.8 g/dL Low 11.5 - 15.5 g/dL [facility] Immature granulocytes (Bld) [#/Vol] 0.05 10*3/uL [facility] Immature granulocytes/100 WBC (Bld) 0.4 % [facility] Interpretation and review of laboratory results Abnormal [facility] Lymphocytes (Bld) [#/Vol] 2 10*3/uL [facility] Lymphocytes/100 WBC (Bld) 17.1 % [facility] MCH (RBC) [Entitic mass] 29 pg 26.0 - 34.0 pg [facility] MCHC (RBC) [Mass/Vol] 33.1 g/dL 30.5 - 36.0 g/dL [facility] MCV (RBC) [Entitic vol] 87.4 fL 80.0 - 100.0 fL [facility] Monocytes (Bld) [#/Vol] 0.56 10*3/uL [facility] Monocytes/100 WBC (Bld) 4.8 % [facility] Neutrophils (Bld) [#/Vol] 8.93 10*3/uL High [facility] Neutrophils/100 WBC (Bld) 76.4 % [facility] Nucleated RBC (Bld) [#/Vol] [facility] Nucleated RBC/100 WBC (Bld) [Ratio] 0 % /100 WBC [facility] Platelet mean volume (Bld) [Entitic vol] 10.2 fL 9.0 - 12.7 fL [facility] Platelets (Bld) [#/Vol] 201 10*3/uL [facility] RBC (Bld) [#/Vol] 3.73 10*6/uL Low 3.90 - 5.20 m/uL [facility] WBC (Bld) [#/Vol] 11.69 10*3/uL High [facility] Basophils (Bld) [#/Vol] 0.03 10*3/uL Normal <0.11 [facility] Comment on above: Order Comment: Speci men Type: BLOOD SPECIMENOrdering Facility: [facility] Address: [address] [place] [address] Performed By: #### 5 7021-8 ####[facility] MILLTOWNCLIA [id number] [place] [address] [place] Basophils/100 WBC (Bld) 0.3 % Normal [facility] Comment on above: Order Comment: Speci men Type: BLOOD SPECIMENOrdering Facility: [facility] Address: [address] [place] [address] Performed By: #### 5 7021-8 ####[facility]CL[facility] [id number] [place] [address] [place] Differential cell count method Nom (Bld) Auto Normal [facility] Comment on above: Order Comment: Speci men Type: BLOOD SPECIMENOrdering Facility: [facility] Address: [address] [place] [address] Performed By: #### 5 7021-8 ####[facility] MILLTOWNCLIA [id number] [place] [address] [place] Eosinophils (Bld) [#/Vol] 0.12 10*3/uL Normal <0.46 [facility] Comment on above: Order Comment: Speci men Type: BLOOD SPECIMENOrdering Facility: [facility] Address: [address] [place] [address] Performed By: #### 5 7021-8 ####[facility]ITALNCLIA [id number] [place] [address] [place] Eosinophils/100 WBC (Bld) 1.0 % Normal [facility] Comment on above: Order Comment: Speci men Type: BLOOD SPECIMENOrdering Facility: [facility] Address: [address] [place] [address] Performed By: #### 5 7021-8 ####[facility] BJSANTA MARIAFESTUSDALTON [id number] [place] [address] [place] Erythrocyte distribution width (RBC) [Ratio] 15.0 % Normal 11.5-15.0 [facility] Comment on above: Order Comment: Speci men Type: BLOOD SPECIMENOrdering Facility: [facility] Address: [address] [place] [address] Performed By: #### 5 7021-8 ####[facility]ITALFESTUSVALLEY VIEW [facility] [id number] [place] [address] [place] Hematocrit (Bld) [Volume fraction] 32.6 % Low 36.0-46.0 [facility] Comment on above: Order Comment: Speci men Type: BLOOD SPECIMENOrdering Facility: [facility] Address: [address] [place] [address] Performed By: #### 5 7021-8 ####[facility] HOSPITALFESTUSLIA [id number] [place] [address] [place] Hemoglobin (Bld) [Mass/Vol] 10.8 g/dL Low 11.5-15.5 [facility] Comment on above: Order Comment: Speci men Type: BLOOD SPECIMENOrdering Facility: [facility] Address: [address] [place] [address] Performed By: #### 5 7021-8 ####[facility]ITALNCLIA [id number] [place] [address] [place] Immature granulocytes (Bld) [#/Vol] 0.05 10*3/uL Normal <0.10 [facility] Comment on above: Order Comment: Speci men Type: BLOOD SPECIMENOrdering Facility: [facility] Address: [address] [place] [address] Performed By: #### 5 7021-8 ####[facility] HOSPITALNCVALLEY VIEW MEDICAL [facility]ENTER [id number] [place] [address] [place] Immature granulocytes/100 WBC (Bld) 0.4 % Normal [facility] Comment on above: Order Comment: Speci men Type: BLOOD SPECIMENOrdering Facility: [facility] Address: [address] [place] [address] Performed By: #### 5 7021-8 ####[facility] [id number] [place] [address] [place] Lymphocytes (Bld) [#/Vol] 2.00 10*3/uL Normal 1.00-4.00 [facility] Comment on above: Order Comment: Speci men Type: BLOOD SPECIMENOrdering Facility: [facility] Address: [address] [place] [address] Performed By: #### 5 7021-8 ####[facility] [id number] [place] [address] [place] Lymphocytes/100 WBC (Bld) 17.1 % Normal [facility] Comment on above: Order Comment: Speci men Type: BLOOD SPECIMENOrdering Facility: [facility] Address: [address] [place] [address] Performed By: #### 5 7021-8 ####[facility] [id number] [place] [address] [place] MCH (RBC) [Entitic mass] 29.0 pg Normal 26.0-34.0 [facility] Comment on above: Order Comment: Speci men Type: BLOOD SPECIMENOrdering Facility: [facility] Address: [address] [place] [address] Performed By: #### 5 7021-8 ####[facility] ROSSNCLIA [id number] [place] [address] [place] MCHC (RBC) [Mass/Vol] 33.1 g/dL Normal 30.5-36.0 [facility] Comment on above: Order Comment: Speci men Type: BLOOD SPECIMENOrdering Facility: [facility] Address: [address] [place] [address] Performed By: #### 5 7021-8 ####[facility] BJSANTA MARIANCLIA [id number] [place] [address] [place] MCV (RBC) [Entitic vol] 87.4 fL Normal 80.0-100.0 [facility] Comment on above: Order Comment: Speci men Type: BLOOD SPECIMENOrdering Facility: [facility] Address: [address] [place] [address] Performed By: #### 5 7021-8 ####[facility]OS[facility]ITALNCLIA [id number] [place] [address] [place] Monocytes (Bld) [#/Vol] 0.56 10*3/uL Normal <0.87 [facility] Comment on above: Order Comment: Speci men Type: BLOOD SPECIMENOrdering Facility: [facility] Address: [address] [place] [address] Performed By: #### 5 7021-8 ####[facility] ERWNCLIA [id number] [place] [address] [place] Monocytes/100 WBC (Bld) 4.8 % Normal [facility] Comment on above: Order Comment: Speci men Type: BLOOD SPECIMENOrdering Facility: [facility] Address: [address] [place] [address] Performed By: #### 5 7021-8 ####[facility] HOS[facility]ITALNCLIA [id number] [place] [address] [place] Neutrophils (Bld) [#/Vol] 8.93 10*3/uL High 1.45-7.50 [facility] Comment on above: Order Comment: Speci men Type: BLOOD SPECIMENOrdering Facility: [facility] Address: [address] [place] [address] Performed By: #### 5 7021-8 ####[facility] [id number] [place] [address] [place] Neutrophils/100 WBC (Bld) 76.4 % Normal [facility] Comment on above: Order Comment: Speci men Type: BLOOD SPECIMENOrdering Facility: [facility] Address: [address] [place] [address] Performed By: #### 5 7021-8 ####[facility] [id number] [place] [address] [place] Nucleated RBC (Bld) [#/Vol] 10*3/uL Normal <0.01 [facility] Comment on above: Order Comment: Speci men Type: BLOOD SPECIMENOrdering Facility: [facility] Address: [address] [place] [address] Performed By: #### 5 7021-8 ####[facility] [id number] [place] [address] [place] Nucleated RBC/100 WBC (Bld) [Ratio] 0.0 /100 WBC Normal [facility] Comment on above: Order Comment: Speci men Type: BLOOD SPECIMENOrdering Facility: [facility] Address: [address] [place] [address] Performed By: #### 5 7021-8 ####[facility] [id number] [place] [address] [place] Platelet mean volume (Bld) [Entitic vol] 10.2 fL Normal 9.0-12.7 [facility] Comment on above: Order Comment: Speci men Type: BLOOD SPECIMENOrdering Facility: [facility] Address: [address] [place] [address] Performed By: #### 5 7021-8 ####[facility]ITALNCLIA [id number] [place] [address] [place] Platelets (Bld) [#/Vol] 201 10*3/uL Normal 150-400 [facility] Comment on above: Order Comment: Speci men Type: BLOOD SPECIMENOrdering Facility: [facility] Address: [address] [place] [address] Performed By: #### 5 7021-8 ####[facility]ITALNCLIA [id number] [place] [address] [place] RBC (Bld) [#/Vol] 3.73 10*6/uL Low 3.90-5.20 [facility] Comment on above: Order Comment: Speci men Type: BLOOD SPECIMENOrdering Facility: [facility] Address: [address] [place] [address] Performed By: #### 5 7021-8 ####[facility]ITALNCLIA [id number] [place] [address] [place] WBC (Bld) [#/Vol] 11.69 10*3/uL High 3.70-11.00 [facility] Comment on above: Order Comment: Speci men Type: BLOOD SPECIMENOrdering Facility: [facility] Address: [address] [place] [address] Performed By: #### 5 7021-8 ####[facility]ITALNCLIA [id number] [place] [address] [place] Examination level ultrasound on 11-24-2024 [facility] Radiology Study observation (narrative) [facility] Ferritin SerPl-mCncon 2024 Ferritin [Mass/Vol] 14.2 ng/mL Low 14.7-205.1 [facility] Comment on above: Order Comment: Speci men Type: BLOOD SPECIMENOrdering Facility: [facility] Address: [address] [place] [address] Performed By: #### 5 0190-8, 2276-4 ####[facility] LABCLIA [id number] [place] [address] [place] HBV surface Ag Ser Qlon 07-0 HBV surface Ag Ql (S) Negative Normal Negative [facility] Comment on above: Order Comment: Speci men Type: BLOOD SPECIMENOrdering Facility: [facility] Address: [address] [place] [address] Performed By: #### 5 195-3, 62841-6 ####[facility] LABIA [id number] [place] [address] [place] HIV 1+2 Ab IA Qlon 5 HIV 1 and 2 Ab IA.rapid Nom (S/P/Bld) Normal [facility] Comment on above: Order Comment: Speci men Type: BLOOD SPECIMENOrdering Facility: [facility] Address: [address] [place] [address] Result Comment: Test not indicated. Performed By: #### 5 195-3, 57315-1 ####[facility] LABIA [id number] [place] [address] [place] HIV 1+2 Ab+HIV1 p24 Ag IA Ql Non-Reactive Normal Nonreactive [facility] Comment on above: Order Comment: Speci men Type: BLOOD SPECIMENOrdering Facility: [facility] Address: [address] [place] [address] Performed By: #### 5 195-3, 59019-6 ####[facility] LABCLIA [id number] [place] [address] [place] HIV immunoassay testing algorithm interpretation (S/P/Bld) [Interp] Normal [facility] Comment on above: Order Comment: Speci men Type: BLOOD SPECIMENOrdering Facility: [facility] Address: [address] [place] [address] Result Comment: No e vidence of HIV-1 or HIV-2 infection. Should recent infection be suspected, repeat testing may be considered 2-3 weeks after this draw. [place] Rev. Code 3701.243(E): This information has been [...] or diagnoses. Performed By: #### 5 195-3, 05018-8 ####[facility] LABCLIA [id number] [place] [address] [place] Iron and Iron binding capaci ty panelon 11-24-2024 Iron [Mass/Vol] 182 ug/dL Normal 41-186 [facility] Comment on above: Order Comment: Speci men Type: BLOOD SPECIMENOrdering Facility: [facility] Address: [address] [place] [address] Performed By: #### 5 0190-8, 2276-4 ####[facility] LABIA [id number] [place] [address] [place] Iron binding capacity [Mass/Vol] 379 ug/dL Normal 232-386 [facility] Comment on above: Order Comment: Speci men Type: BLOOD SPECIMENOrdering Facility: [facility] Address: [address] [place] [address] Performed By: #### 5 0190-8, 6-4 ####[facility] LABCLIA [id number] [place] [address] [place] Iron/TIBC [Molar ratio] 48.0 % Normal 15.0-57.0 [facility] Comment on above: Order Comment: Speci men Type: BLOOD SPECIMENOrdering Facility: [facility] Address: [address] [place] [address] Performed By: #### 5 0190-8, 2276-4 ####[facility] LABCLIA [id number] [address] RUBELLA IGG ANTIBODYon 11-24 RUBELLA IGG AB, QUAL Equivocal Abnormal Positive [facility] Comment on above: Order Comment: Speci men Type: BLOOD SPECIMENOrdering Facility: [facility] Address: [address] [place] [address] Result Comment: Fahad ot exclude non-specific reactivity or recent or past exposure to Rubella virus including vaccination. Equivocal result may also be seen due to waning immunity to Rubella virus or presence of passively-transferred antibodies. Please correlate with patient's history. Performed By: #### R UBIGG ####[facility] LABCLIA [id number] [address] CNNURSEon 11-01-2024 CNNURSE Nurse Visit (EDEDSJ) BRYCE RAMIREZ ([id number]) 1990 F Date Time Provider Department 11/01/24 9:00 AM CIARRA HUBBARD EDEDSReza During your visit today, we recorded the following information about you: Ciarra Hubbard, RN 11/01/2024 10:47 AM Signed DIABETES SELF-MANAGEMENT EDUCATION AND SUPPORT Location: [facility] Type of visit: Virtual (with video) individual I have communicated my name and active licensure. The patient's identity and physical location were verified at the time of this visit. Either the patient or their legal patient accounting representative has been informed of the risks [...] Race/Ethnic Origin: White/ Does you culture or jain require any of the following: No cultural/christianity practices affecting DM Do you have problems [...] How do you manage stress? Watch [employer] [place] Do any of the following things get [...] levels u (more content not included)... Normal [facility] GLUCOSE GESTATIONAL, 1 HOURo n 10-27-2024 Glucose 1 Hr post Unsp challenge [Mass/Vol] 185 mg/dL High 74-179 [facility] Comment on above: Order Comment: Speci men Type: BLOOD SPECIMENOrdering Facility: [facility] Address: [address] [place] [address] Result Comment: [facility] Congress of Obstetricians and Gynecologists (Kaye/Nitni) guidelines state gestational diabetes mellitus is present when 2 or more of the plasma glucose concentrations meet or exceed the following levels: fastin mg/dl, 1 hr: 180 mg/dl, 2 hr: 155 mg/dl, and 3 hr: 140 mg/dl. Performed By: #### G TGST1 ####[facility] [id number] [place] [address] [place] GLUCOSE GESTATIONAL, 2 HOURo n 10-27-2024 Glucose 2 Hr post Unsp challenge [Mass/Vol] 164 mg/dL High 74-154 [facility] Comment on above: Order Comment: Speci selvin Type: BLOOD SPECIMENOrdering Facility: [facility] Address: [address] [place] [address] Result Comment: [facility] of Obstetricians and Gynecologists (Restrepo/Nitin) guidelines state gestational diabetes mellitus is present when 2 or more of the plasma glucose concentrations meet or exceed the following levels: fastin mg/dl, 1 hr: 180 mg/dl, 2 hr: 155 mg/dl, and 3 hr: 140 mg/dl. Performed By: #### G TGST2 ####[facility] [id number] [address] [place] GLUCOSE GESTATIONAL, 3 HOURo n 10-27-2024 Glucose 3 Hr post Unsp challenge [Mass/Vol] 123 mg/dL Normal 74-139 [facility] Comment on above: Order Comment: Jacqueline montalvo Type: BLOOD SPECIMENOrdering Facility: [facility] Address: [address] [place] [address] Result Comment: [facility] Congress of Obstetricians and Gynecologists (Restrepo/Nitin) guidelines state gestational diabetes mellitus is present when 2 or more of the plasma glucose concentrations meet or exceed the following levels: fastin mg/dl, 1 hr: 180 mg/dl, 2 hr: 155 mg/dl, and 3 hr: 140 mg/dl. Performed By: #### G TGST3 ####[facility] [id number] [address] [place] GLUCOSE GESTATIONAL, FASTING on 10-27-2024 Glucose post fast [Mass/Vol] 98 mg/dL High 74-94 [facility] Comment on above: Order Comment: Speci men Type: BLOOD SPECIMENOrdering Facility: [facility] Address: [address] [place] [address] Result Comment: [facility] Congress of Obstetricians and Gynecologists (Kaye/Ntiin) guidelines state gestational diabetes mellitus is present when 2 or more of the plasma glucose concentrations meet or exceed the following levels: fastin mg/dl, 1 hr: 180 mg/dl, 2 hr: 155 mg/dl, and 3 hr: 140 mg/dl. Performed By: #### G TGSTF ####[facility] [id number] [place] [address] [place] CBC W Auto Differential pane l (Bld)on 10-25-2024 Basophils (Bld) [#/Vol] 0.04 10*3/uL Normal <0.11 [facility] Comment on above: Order Comment: Speci men Type: BLOOD SPECIMENOrdering Facility: [facility] Address: [address] [place] [address] Performed By: #### 5 7021-8 ####[facility] [id number] [place] [address] [place] Basophils/100 WBC (Bld) 0.4 % Normal [facility] Comment on above: Order Comment: Speci men Type: BLOOD SPECIMENOrdering Facility: [facility] Address: [address] [place] [address] Performed By: #### 5 7021-8 ####[facility] [id number] [address] STATES [facility] Differential cell count method Nom (Bld) Auto Normal [facility] [facility] Comment on above: Order Comment: Speci men Type: BLOOD SPECIMENOrdering Facility: [facility] Address: [address] [place] [address] Performed By: #### 5 7021-8 ####[facility] MILLWNCLIA [id number] [place] [address] [place] Eosinophils (Bld) [#/Vol] 0.15 10*3/uL Normal <0.46 [facility] Comment on above: Order Comment: Speci men Type: BLOOD SPECIMENOrdering Facility: [facility] Address: [address] [place] [address] Performed By: #### 5 7021-8 ####[facility]ITALLIA [id number] [place] [address] [place] Eosinophils/100 WBC (Bld) 1.4 % Normal [facility] Comment on above: Order Comment: Speci men Type: BLOOD SPECIMENOrdering Facility: [facility] Address: [address] [place] [address] Performed By: #### 5 7021-8 ####[facility]ITALLIA [id number] [place] [address] [place] Erythrocyte distribution width (RBC) [Ratio] 14.6 % Normal 11.5-15.0 [facility] Comment on above: Order Comment: Speci men Type: BLOOD SPECIMENOrdering Facility: [facility] Address: [address] [place] [address] Performed By: #### 5 7021-8 ####[facility] [id number] [place] [address] [place] Hematocrit (Bld) [Volume fraction] 30.8 % Low 36.0-46.0 [facility] Comment on above: Order Comment: Speci men Type: BLOOD SPECIMENOrdering Facility: [facility] Address: [address] [place] [address] Performed By: #### 5 7021-8 ####[facility] [id number] [place] [address] [place] Hemoglobin (Bld) [Mass/Vol] 10.1 g/dL Low 11.5-15.5 [facility] Comment on above: Order Comment: Speci men Type: BLOOD SPECIMENOrdering Facility: [facility] Address: [address] [place] [address] Performed By: #### 5 7021-8 ####[facility] [id number] [place] [address] [place] Immature granulocytes (Bld) [#/Vol] 0.03 10*3/uL Normal <0.10 [facility] Comment on above: Order Comment: Speci men Type: BLOOD SPECIMENOrdering Facility: [facility] Address: [address] [place] [address] Performed By: #### 5 7021-8 ####[facility]ITALNCV[facility] [id number] [place] [address] [place] Immature granulocytes/100 WBC (Bld) 0.3 % Normal [facility] Comment on above: Order Comment: Speci men Type: BLOOD SPECIMENOrdering Facility: [facility] Address: [address] [place] [address] Performed By: #### 5 7021-8 ####[facility] HOSPITALNCA [id number] [place] [address] [place] Lymphocytes (Bld) [#/Vol] 1.85 10*3/uL Normal 1.00-4.00 [facility] Comment on above: Order Comment: Speci men Type: BLOOD SPECIMENOrdering Facility: [facility] Address: [address] [place] [address] Performed By: #### 5 7021-8 ####[facility]ITALNCLIA [id number] [place] [address] [place] Lymphocytes/100 WBC (Bld) 16.7 % Normal [facility] Comment on above: Order Comment: Speci men Type: BLOOD SPECIMENOrdering Facility: [facility] Address: [address] [place] [address] Performed By: #### 5 7021-8 ####[facility] BJKseniaNCDALTON [id number] [place] [address] [place] MCH (RBC) [Entitic mass] 28.8 pg Normal 26.0-34.0 [facility] Comment on above: Order Comment: Speci men Type: BLOOD SPECIMENOrdering Facility: [facility] Address: [address] [place] [address] Performed By: #### 5 7021-8 ####[facility] HOSPITALNCDALTON [id number] [place] [address] [place] MCHC (RBC) [Mass/Vol] 32.8 g/dL Normal 30.5-36.0 [facility] Comment on above: Order Comment: Speci men Type: BLOOD SPECIMENOrdering Facility: [facility] Address: [address] [place] [address] Performed By: #### 5 7021-8 ####[facility] HOSPITALNCA [id number] [address] [place] MCV (RBC) [Entitic vol] 87.7 fL Normal 80.0-100.0 [facility] Comment on above: Order Comment: Speci men Type: BLOOD SPECIMENOrdering Facility: [facility] Address: [address] [place] [address] Performed By: #### 5 7021-8 ####[facility] HOS[facility]ITALNCA [id number] [place] [address] [place] Monocytes (Bld) [#/Vol] 0.47 10*3/uL Normal <0.87 [facility] Comment on above: Order Comment: Speci men Type: BLOOD SPECIMENOrdering Facility: [facility] Address: [address] [place], [place] [address] Performed By: #### 5 7021-8 ####[facility] MILLWNCLIA [id number] [place] [address] [place] Monocytes/100 WBC (Bld) 4.2 % Normal [facility] Comment on above: Order Comment: Speci men Type: BLOOD SPECIMENOrdering Facility: [facility] Address: [address] [place] [address] Performed By: #### 5 7021-8 ####[facility]OS[facility]ITALNCLIA [id number] [place] [address] [place] Neutrophils (Bld) [#/Vol] 8.56 10*3/uL High 1.45-7.50 [facility] Comment on above: Order Comment: Speci men Type: BLOOD SPECIMENOrdering Facility: [facility] Address: [address] [place] [address] Performed By: #### 5 7021-8 ####[facility]ITALLIA [id number] [place] [address] [place] Neutrophils/100 WBC (Bld) 77.0 % Normal [facility] Comment on above: Order Comment: Speci men Type: BLOOD SPECIMENOrdering Facility: [facility] Address: [address] [place] [address] Performed By: #### 5 7021-8 ####[facility]OS[facility]ITALNCLIA [id number] [place] [address] [place] Nucleated RBC (Bld) [#/Vol] 10*3/uL Normal <0.01 [facility] Comment on above: Order Comment: Speci men Type: BLOOD SPECIMENOrdering Facility: [facility] Address: [address] [place] [address] Performed By: #### 5 7021-8 ####[facility] HOS[facility]ITALNCLIA [id number] [place] [address] [place] Nucleated RBC/100 WBC (Bld) [Ratio] 0.0 /100 WBC Normal [facility] Comment on above: Order Comment: Speci men Type: BLOOD SPECIMENOrdering Facility: [facility] Address: [address] [place] [address] Performed By: #### 5 7021-8 ####[facility] HOSPITALNCLISSETTEA [id number] [place] [address] [place] Platelet mean volume (Bld) [Entitic vol] 10.1 fL Normal 9.0-12.7 [facility] Comment on above: Order Comment: Speci men Type: BLOOD SPECIMENOrdering Facility: [facility] Address: [address] [place] [address] Performed By: #### 5 7021-8 ####[facility]ITALNCVAL[facility] [id number] [place] [address] [place] Platelets (Bld) [#/Vol] 209 10*3/uL Normal 150-400 [facility] Comment on above: Order Comment: Speci men Type: BLOOD SPECIMENOrdering Facility: [facility] Address: [address] [place] [address] Performed By: #### 5 7021-8 ####[facility] HOS[facility]ITALNCLIA [id number] [place] [address] [place] RBC (Bld) [#/Vol] 3.51 10*6/uL Low 3.90-5.20 [facility] Comment on above: Order Comment: Speci men Type: BLOOD SPECIMENOrdering Facility: [facility] Address: [address] [place] [address] Performed By: #### 5 7021-8 ####[facility]ITALNCLIA [id number] [place] [address] [place] WBC (Bld) [#/Vol] 11.10 10*3/uL High 3.70-11.00 [facility] Comment on above: Order Comment: Speci selvin Type: BLOOD SPECIMENOrdering Facility: [facility] Address: [address] [place] [address] Performed By: #### 5 7021-8 ####[facility]ITALNCV[facility] [id number] [place] [address] [place] Examination level ultrasound on 10-25-2024 [facility] Radiology Study observation (narrative) [facility] GESTATIONAL GLUCOSE SCREEN, 1-HOUR, 50 GRAM, NON-FASTINGon 10-25-2024 Glucose [Mass/Vol] 138 mg/dL High 74-134 [facility] Comment on above: Order Comment: Jacqueline montalvo Type: BLOOD SPECIMENOrdering Facility: [facility] Address: [address] [place] [address] Result Comment: [facility] Congress of Obstetricians and Gynecologists (Restrepo/Nitin) guidelines state a gestational diabetes mellitus positive screen is made, in women not previously diagnosed with overt diabetes, when the 1 hr plasma glucose level is equal to or above 140 mg/dL. The [facility] [place] recommends a 135 mg/dL cutoff. Performed By: #### G LTGST ####[facility] [id number] [place] [address] [place] Iron and Iron binding capaci ty panelon 10-25-2024 Iron [Mass/Vol] 44 ug/dL Normal 41-186 [facility] Comment on above: Order Comment: Julioi men Type: BLOOD SPECIMENOrdering Facility: [facility] Address: [address] [place] [address] Performed By: #### 5 0190-8 ####[facility] LABCLIA [id number] [place] [address] [place] Iron binding capacity [Mass/Vol] 382 ug/dL Normal 232-386 [facility] Comment on above: Order Comment: Jacqueline men Type: BLOOD SPECIMENOrdering Facility: [facility] Address: [address] [place] [address] Performed By: #### 5 0190-8 ####[facility] LABIA [id number] [place] [address] [place] Iron/TIBC [Molar ratio] 11.5 % Low 15.0-57.0 [facility] Comment on above: Order Comment: Speci men Type: BLOOD SPECIMENOrdering Facility: [facility] Address: [address] [place] [address] Performed By: #### 5 0190-8 ####[facility] LABIA [id number] [place] [address] [place] Reagin and Treponema pallidu m IgG and IgM [Interp]on 10-25-2024 T. pallidum IgG+IgM IA Ql (S) Non-Reactive Normal Nonreactive [facility] Comment on above: Order Comment: Speci men Type: BLOOD SPECIMENOrdering Facility: [facility] Address: [address] [place] [address] Performed By: #### 7 3752-8 ####[facility] LABIA [id number] [place] [address] [place] Reagin+T pallidum IgG+IgM Se rPl-Impon 10-25-2024 Reagin and Treponema pallidum IgG and IgM [Interp] Cannot exclude recent Treponemal infection if specimen collected within 7-10 days after appearance of suspect lesions or 2-3 weeks after an exposure. Clinical correlation is required. Normal [facility] Comment on above: Order Comment: Speci men Type: BLOOD SPECIMENOrdering Facility: [facility] Address: [address] [place] [address] Performed By: #### 7 3752-8 ####[facility] LABIA [id number] [place] [address] [place] TYPE + SCREEN PRENATALon ABO O Normal [facility] Comment on above: Order Comment: Speci men Type: BLOOD SPECIMEN [facility] Address: [address] [place] [address] Performed By: #### T SPN #### [facility] CLIA [id number] [address] [place], [place] [id number] [place] Rh Nom (Bld) Positive Normal [facility] Comment on above: Order Comment: Speci men Type: BLOOD SPECIMEN [facility] Address: [address] [place] [address] Performed By: #### T SPN #### [facility] CLIA [id number] [address] [place] [address] [place] TYPE AND SCREEN EXPIRATION 10/28/2024 23:59 Normal [facility] Comment on above: Order Comment: Speci men Type: BLOOD SPECIMEN [facility] Address: [address] [place] [address] Performed By: #### T SPN #### [facility] CLIA [id number] [address] [place], [place] [address] [place] Urine Cultureon 10-18-2024 [facility] Mixed Gram Positive Organisms [place] Count >100,000 MIXC Mixed contaminants. Submit a new specimen if indicated. Normal [facility] Comment on above: Performed By: #### M 100.2200 #### [facility] [address] [place], [address] AST(SGOT)on 10-16-2024 AST [Catalytic activity/Vol] 14 U/L Normal <=31 [facility] Comment on above: Performed By: #### L 501.0900, L501.1105, L100.0500, L501.4405, L501.4100, L501.1400 #### [facility] [address] [place], [address] Alanine Aminotransferas (SGP T)on 10-16-2024 ALT [Catalytic activity/Vol] 8 U/L Normal <=34 [facility] Comment on above: Performed By: #### L 501.0900, L501.1105, L100.0500, L501.4405, L501.4100, L501.1400 #### [facility] [address] [place], [address] CBC-Complete Blood Cnt No Di ffon 10-16-2024 Erythrocyte distribution width (RBC) [Ratio] 14.6 % Normal 11.6-14.6 [facility] Comment on above: Performed By: #### L 501.0900, L501.1105, L100.0500, L501.4405, L501.4100, L501.1400 #### [facility] [address] [place], [address] Hematocrit (Bld) [Volume fraction] 31.5 % Low 37-47 [facility] Comment on above: Performed By: #### L 501.0900, L501.1105, L100.0500, L501.4405, L501.4100, L501.1400 #### [facility] [address] [place], [address] Hemoglobin (Bld) [Mass/Vol] 10.5 g/dL Low 12.0-15.0 [facility] Comment on above: Performed By: #### L 501.0900, L501.1105, L100.0500, L501.4405, L501.4100, L501.1400 #### [facility] [address] [place], [address] MCH (RBC) [Entitic mass] 29.5 pg Normal 27.0-32.0 [facility] Comment on above: Performed By: #### L 501.0900, L501.1105, L100.0500, L501.4405, L501.4100, L501.1400 #### [facility] [address] [place], [address] MCHC (RBC) [Mass/Vol] 33.3 g/dL Normal 32-36 [facility] Comment on above: Performed By: #### L 501.0900, L501.1105, L100.0500, L501.4405, L501.4100, L501.1400 #### [facility] [address] [place], [address] MCV (RBC) [Entitic vol] 88.5 fL Normal 81-99 [facility] Comment on above: Performed By: #### L 501.0900, L501.1105, L100.0500, L501.4405, L501.4100, L501.1400 #### [facility] [address] [place], [address] Platelet mean volume (Bld) [Entitic vol] 9.9 fL Normal 6.2-12.0 [facility] Comment on above: Performed By: #### L 501.0900, L501.1105, L100.0500, L501.4405, L501.4100, L501.1400 #### [facility] [address] [place], [address] Platelets (Bld) [#/Vol] 221 10*3/uL Normal 150-450 [facility] Comment on above: Performed By: #### L 501.0900, L501.1105, L100.0500, L501.4405, L501.4100, L501.1400 #### [facility] [address] [place], [address] RBC (Bld) [#/Vol] 3.56 10*6/uL Low 4.2-5.4 [facility] Comment on above: Performed By: #### L 501.0900, L501.1105, L100.0500, L501.4405, L501.4100, L501.1400 #### [facility] [address] [place], [address] RDW SD 47.3 fl High 35.1-43.9 [facility] Comment on above: Performed By: #### L 501.0900, L501.1105, L100.0500, L501.4405, L501.4100, L501.1400 #### [facility] [address] [place], [address] WBC (Bld) [#/Vol] 10.1 10*3/uL Normal 4.4-11.0 [facility] Comment on above: Performed By: #### L 501.0900, L501.1105, L100.0500, L501.4405, L501.4100, L501.1400 #### [facility] [address] [place], [address] Discharge Instructionon 09-24 Discharge Instruction [facility] Medical Records Department [address] [place] [address] Instructions for Home/Discharge Instructions 10/16/242031 MR#: [id number] Acct: [id number] Name: BRYCE RAMIREZ Rep #: [id number] : 1990 34 From: Marybeth Escamilla CNM [...] upset Finish all of medication No Action vit,iwcb68-[id number]-rvfnp [Prenatabs FA] 1 TABLET tablet 1 tab PO DAILY ibuprofen 600 MG tablet 600 mg PO Q6H PRN PRN (Reason: Pain Score 1-3/10) 0RF Referrals / Follow Up: Ze Pugh DO [Primary Care Provider] - Disposition Patient Disposition: Home, Self Care 10/16/242033 Marybeth Escamilla CNM CC: Dr. Ze Pugh DO Signed Normal [facility] OB Triage Physician Noteon 0 10-16-2024 OB Triage Physician Note [facility] Medical Records Department [address] [place] [address] OB Triage Physician Note 10/16/242023 MR#: [id number] Acct: [id number] Name: BRYCE RAMIREZ Rep #: [id number] : 1990 34 From: Marybeth Escamilla CNM PCP: Dr. Ze Pugh, Status:REG CLI Y [address]: [address] HPI - General HPI Narrative BRYCE [...] Signed Normal [facility] Protein+Creatinine Ratio,Uri neon 10-16-2024 PROT:CRE RATIO 101 mg/g CRE Normal 0-200 [facility] Comment on above: Performed By: #### L 501.0900, L501.1105, L100.0500, L501.4405, L501.4100, L501.1400 #### [facility] [address] [place], [address] Protein (U) [Mass/Vol] 13.4 mg/dL High 0.0-12.0 [facility] Comment on above: Performed By: #### L 501.0900, L501.1105, L100.0500, L501.4405, L501.4100, L501.1400 #### [facility] [address] [place], [address] UR CREAT 133.00 mg/dL Normal 28.00-217.00 [facility] Comment on above: Performed By: #### L 501.0900, L501.1105, L100.0500, L501.4405, L501.4100, L501.1400 #### [facility] [address] [place], [address] Serum Creatinine AND GFRon 0 10-16-2024 Creatinine [Mass/Vol] 0.53 mg/dL Low 0.70-1.20 [facility] Comment on above: Performed By: #### L 501.0900, L501.1105, L100.0500, L501.4405, L501.4100, L501.1400 #### [facility] [address] [place], [address] GFR/1.73 sq M.predicted among non-blacks MDRD (S/P/Bld) [Vol rate/Area] 124 mL/min/{1.73_m2} Normal >60 [facility] Comment on above: Result Comment: mL/m in/1.73m2 CKD-EPI Creatinine Equation (2020) Performed By: #### L 501.0900, L501.1105, L100.0500, L501.4405, L501.4100, L501.1400 #### [facility] [address] [place], [address] Uric Acidon 10-16-2024 URIC 2.2 mg/dL Low 2.6-6.0 [facility] Comment on above: Result Comment: The drugs N-Acetylcysteine and Metamizole may falsely depress this assay. Performed By: #### L 501.0900, L501.1105, L100.0500, L501.4405, L501.4100, L501.1400 #### [facility] [address] [place], [address] Urinalysis, Completeon 10-16 BACTERIA 4+ /hpf Normal None Seen [facility] Comment on above: Order Comment: CLEAN CATCH Performed By: #### L 400.0001 #### [facility] [address] [place], [address] EPI,SQUAMOUS 10-25 SEEN Normal 5-10 [facility] Comment on above: Order Comment: CLEAN CATCH Performed By: #### L 400.0001 #### [facility] [address] [place], [address] RBC 0-5 SEEN Normal 0-5 [facility] Comment on above: Order Comment: CLEAN CATCH Performed By: #### L 400.0001 #### [facility] [address] [place], [address] WBC 10-25 SEEN Normal 0-5 [facility] Comment on above: Order Comment: CLEAN CATCH Performed By: #### L 400.0001 #### [facility] [address] [place], [address] Mucus Ql (Urine sed) 0 SEEN Normal [facility] Comment on above: Order Comment: CLEAN CATCH Performed By: #### L 400.0001 #### [facility] [address] [place], [address] FETALon 09-27-2024 + - -------+-+ Pediatric Cardiology Echocardiogram Report + -------+-+ NAME: BRYCE RAMIREZ : 1990 PT ID#: [id number] Age: 34 years Sex: F STUDY DATE: 09/27/2024 9:04:40 AM DIDIER: 01/15/2025 GA: 24w2d Image Quality: The images were of adequate diagnostic quality. Diagnosing Physician: Moses Caruso MD Consulting Technical Director: Farzaneh Beauchamp 2nd Consulting Technical Director: Diagnosis: [id number] abnormality and damage, single fetus or unspecified Procedure Code: 54643, 16307, 29738 Echo, Complete (w/Doppler and color) Exam Location: [...] and smith (more content not included)... Normal [facility] CNPNon 09-14-2024 CNPN Telephone (CHPDMN) BRYCE RAMIREZ ([id number]) 1990 F Date Time Provider Department 09/14/24 [facility] PROVIDER [facility] During your visit today, we recorded the following information about you: Jacqueline Duarte 09/14/2024 8:38 AM Signed Left vm to schedule echo [phone] opt 2 Allergies As of Date: 09/14/2024 (No Known Allergies) Date Reviewed: 08/03/2024 Reviewed by: Laine Mccollum APRN.TECHNICAL STENOGRAPHER - Fully Assessed Reason for Visit: Consult [173] Cmt: echo Prescriptions as of 09/14/2024 - aspirin, enteric coated (ECOTRIN LOW STRENGTH) 81 mg EC tablet Take 1 tablet by mouth once daily. - Qyzohbzc-Jg-Lek-Fe-FA tab Take 1 tablet by mouth once [...] Status:Closed by JACQUELINE DUARTE on 09/14/24 Normal [facility] Afshan 09-07-2024 CNPN Telephone (OBGYWM) BRYCE RAMIREZ ([id number]) 1990 F Date Time Provider Department 09/07/24 CHAYA FERMIN During your visit today, we recorded the following information about you: Kandy Rivers RN 09/07/2024 9:58 AM Signed Chaya Fermin APRN.ELMIRA [employer]age [employer] Operator Pool Do we still not have her [...] her to sign records release at front desk person. NIKUNJ Sterling Tara, RN 11/09/2024 4:04 PM Signed Records release faxed to [facility] on 10/26/24 at 9:29 am for all medical records re:continuity of care. Kandy Rivers RN Allergies As of Date: 09/07/2024 (No Known Allergies) Date Reviewed: 08/03/2024 Reviewed by: Laine Mccollum APRN.TECHNICAL STENOGRAPHER - Fully Assessed Reason for Visit: Request [...] 1 tablet by mouth once daily. - Gpzjujrr-Jl-Wif-Fe-FA tab Take 1 tablet by mouth once [...] Status:Closed by JULIETTE FERNANDEZ on 09/15/24 Normal [facility] Examination level ultrasound on 08-30-2024 Indication Detailed [...] 13 oz EFW by: Hadlock (HC-AC-FL) Extended Window Trimmer 5.3 mm CM 3.6 mm 9% Nicolaides [...] normal LVOT view: normal 3-vessel view: normal 5-[id number]-fdhayqq view: normal Heart / Thorax Situs: situs [...] Read By: Yady Boyer M.D. MATERNAL MEDICINE [facility] Radiology Study observation (narrative) [facility] Afshan 07-22-2024 [facility] BRYCE RAMIREZ ([id number]) 1990 F Date Time Provider Department 07/[facility] During your visit today, we recorded [...] D2 ORAL) Take by mouth. - rizatriptan (MAXALT-TOBACCO WAREHOUSE AGENT) 10 mg disintegrating tablet Take 1 tablet [...] Status:Closed by CAN BUSH on 08/06/24 Normal [facility] Examination level ultrasound on 07-12-2024 Indication First trimester anatomic survey resulting from in vitro fertilization, Maternal obesity, BMI >35 Impression REMOTE READ The patient is referred for a first trimester anatomy scan including nuchal translucency measurement as clinically indicated. - Single, live, intrauterine . - [place] rump length measurement is consistent with the [...] view: suboptimal 4-chamber view with color: suboptimal 2-xlpdca-ikouvxg view: suboptimal Abdominal cord insertion: normal Stomach: [...] Read By: Yady Boyer M.D. MATERNAL MEDICINE [facility] Radiology Study observation (narrative) [facility] HbA1c (Bld)on 07-12-2024 Average glucose Estimated from glycated hemoglobin (Bld) [Mass/Vol] 103 mg/dL [facility] Comment on above: eAG: (Estimated aver age glucose) is a calculated value from HgbA1c and is patient accounting representative of the average blood glucose level in the last 2-3 month period. HbA1c (Bld) [Mass fraction] 5.2 % 4.3 - 5.6 % [facility] Comment on above: [place] Diabetes As sociation guidelines indicate that patients with HgbA1c in the range 5.7-6.4% are at increased risk for development of diabetes, and intervention by lifestyle modification may be beneficial. HgbA1c greater or equal to 6.5% is considered diagnostic of diabetes. [facility] Average glucose Estimated from glycated hemoglobin (Bld) [Mass/Vol] 103 mg/dL Normal [facility] Comment on above: Order Comment: Speci men Type: BLOOD SPECIMENOrdering Facility: [facility] Address: [address] [place] [address] Result Comment: eAG: (Estimated average glucose) is a calculated value from HgbA1c and is patient accounting representative of the average blood glucose level in the last 2-3 month period. Performed By: #### 5 5454-3 ####[facility] LABCLIA [id number] [place] [address] [place] HbA1c (Bld) [Mass fraction] 5.2 % Normal 4.3-5.6 [facility] Comment on above: Order Comment: Speci men Type: BLOOD SPECIMENOrdering Facility: [facility] Address: [address] [place] [address] Result Comment: Amkt ican Diabetes Association guidelines indicate that patients with HgbA1c in the range 5.7-6.4% are at increased risk for development of diabetes, and intervention by lifestyle modification may be beneficial. HgbA1c greater or equal to 6.5% is considered diagnostic of diabetes. Performed By: #### 5 5454-3 ####[facility] LABCLIA [id number] [place] [address] [place] BACTERIAL CULTURE, URINEOrde red By: Paulo Barger on 07-08-2024 Bacteria identified Cx Nom (U) 50,000-<100,000 CFU/ml Normal urogenital flip [facility] Bacteria identified Cx Nom ( U)Ordered By: Paulo Barger on 07-08-2024 [facility] C. trachomatis+N. gonorrhoea e DNA ABRIL+probe Ql (Unsp spec)on 07-08-2024 C. trachomatis rRNA ABRIL+probe Ql (Unsp spec) Not detected Not detected [facility] Interpretation and review of laboratory results Normal [facility] N. gonorrhoeae rRNA ABRIL+probe Ql (Unsp spec) Not detected Not detected [facility] This FDA-approved assay has been modified to accept rectal swabs self-collected in a healthcare setting. For self-collected rectal swabs, the test was developed and its performance characteristics determined by the [facility]'s [facility] [place] ([facility]). It has not been cleared or approved by the FDA. [facility] is regulated under CLIA as qualified to perform high-complexity testing. This test is used for clinical purposes. It should not be regarded as investigational or for research. [facility] TRICHOMONAS VAGINALIS NAATon 07-08-2024 Interpretation and review of laboratory results Normal [facility] T. vaginalis DNA ABRIL+probe Ql (Unsp spec) Not detected Not detected [facility] BACTERIAL VAGINOSIS NAATon 0 07-07-2024 Interpretation and review of laboratory results Normal [facility] Lactobacillus crispatus+gasseri+je nsenii + Gardnerella vaginalis + Atopobium vaginae rRNA ABRIL+probe Ql (Vag fld) Not detected Not detected [facility] Lactobacillus crispatus+gasseri+je nsenii + Gardnerella vaginalis + Atopobium vaginae rRNA ABRIL+probe Ql (Vag fld) Not detected Normal Not detected [facility] Comment on above: Order Comment: Speci men Type: SWABOrdering Facility: [facility] Address: [address] [place] [address] Performed By: #### B VAMP ####[facility] LABCLIA [id number] [place] [address] [place] Bacteria Ur Culton Bacteria identified Cx Nom (U) ORGANISM ID: 1 50,000-<100,000 CFU/ml Normal urogenital flip Normal [facility] Comment on above: Performed By: #### 6 30-4 ####[facility] LABCLIA [id number] [place] [address] [place] C. trachomatis+N. gonorrhoea e DNA ABRIL+probe Ql (Unsp spec)on 07-07-2024 C. trachomatis rRNA ABRIL+probe Ql (Unsp spec) Not detected Normal Not detected [facility] Comment on above: Order Comment: Speci men Type: SWABOrdering Facility: [facility] Address: [address] [place] [address] Performed By: #### 3 6902-5, SILAS ####[facility] LABCLIA [id number] [place] [address] [place] N. gonorrhoeae rRNA ABRIL+probe Ql (Unsp spec) Not detected Normal Not detected [facility] Comment on above: Order Comment: Speci men Type: SWABOrdering Facility: [facility] Address: [address] [place] [address] Performed By: #### 3 6902-5, SILAS ####[facility] LABCLIA [id number] [place] [address] [place] TRICHOMONAS VAGINALIS NAATon 07-07-2024 T. vaginalis DNA ABRIL+probe Ql (Unsp spec) Not detected Normal Not detected [facility] Comment on above: Order Comment: Speci men Type: SWABOrdering Facility: [facility] Address: [address] [place] [address] Performed By: #### 3 6902-5, SILAS ####[facility] LABCLIA [id number] [place] [address] [place] CBC W Auto Differential pane l (Bld)on 09-30-2022 Basophils (Bld) [#/Vol] 0.04 10*3/uL <0.11 k/uL [facility] Basophils/100 WBC (Bld) 0.7 % [facility] Differential cell count method Nom (Bld) Auto [facility] Eosinophils (Bld) [#/Vol] 0.18 10*3/uL <0.46 k/uL [facility] Eosinophils/100 WBC (Bld) 3.0 % [facility] Erythrocyte distribution width (RBC) [Ratio] 13.3 % 11.5 - 15.0 % [facility] Hematocrit (Bld) [Volume fraction] 38.3 % 36.0 - 46.0 % [facility] Hemoglobin (Bld) [Mass/Vol] 12.3 g/dL 11.5 - 15.5 g/dL [facility] Immature granulocytes (Bld) [#/Vol] <0.10 k/uL [facility] Immature granulocytes/100 WBC (Bld) 0.3 % [facility] Lymphocytes (Bld) [#/Vol] 1.95 10*3/uL 1.00 - 4.00 k/uL [facility] Lymphocytes/100 WBC (Bld) 32.4 % [facility] MCH (RBC) [Entitic mass] 28.4 pg 26.0 - 34.0 pg [facility] MCHC (RBC) [Mass/Vol] 32.1 g/dL 30.5 - 36.0 g/dL [facility] MCV (RBC) [Entitic vol] 88.5 fL 80.0 - 100.0 fL [facility] Monocytes (Bld) [#/Vol] 0.44 10*3/uL <0.87 k/uL [facility] Monocytes/100 WBC (Bld) 7.3 % [facility] Neutrophils (Bld) [#/Vol] 3.39 10*3/uL 1.45 - 7.50 k/uL [facility] Neutrophils/100 WBC (Bld) 56.3 % [facility] Nucleated RBC (Bld) [#/Vol] <0.01 k/uL [facility] Nucleated RBC/100 WBC (Bld) [Ratio] 0.0 /100 WBC [facility] Platelet mean volume (Bld) [Entitic vol] 9.9 fL 9.0 - 12.7 fL [facility] Platelets (Bld) [#/Vol] 265 10*3/uL 150 - 400 k/uL [facility] RBC (Bld) [#/Vol] 4.33 10*6/uL 3.90 - 5.20 m/uL [facility] WBC (Bld) [#/Vol] 6.02 10*3/uL 3.70 - 11. 00 k/uL [facility] Vital Signs Date Time Vital Sign Value Performing Clinician Yamil choudhary 01-03-2025 12:56-0400 Body mass index (BMI) [Ratio] 37.13 kg/m2 Tracie Kovacs MD Work Phone: [facility] 01-03-2025 12:56-0400 Body weight 95.07 kg Tracie Kovacs MD Work Phone: [facility] 01-03-2025 12:56-0400 Diastolic blood pressure 77 mm[Hg] Tracie Kovacs MD Work Phone: [facility] 01-03-2025 12:56-0400 Systolic blood pressure 113 mm[Hg] Tracie Kovacs MD Work Phone: [facility] 12-27-2024 09:20-0400 Diastolic blood pressure 60 mm[Hg] Chaya Fermin LITIGATION EXAMINER.CNM Work Phone: [facility] 12-27-2024 09:20-0400 Systolic blood pressure 106 mm[Hg] Chaya Fermin LITIGATION EXAMINER.CNM Work Phone: [facility] 12-06-2024 08:09-0400 Body mass index (BMI) [Ratio] 36.49 kg/m2 Chaya Fermin LITIGATION EXAMINER.CNM Work Phone: [facility] 12-06-2024 08:09-0400 Body weight 93.44 kg Chaya Fermin LITIGATION EXAMINER.CNM Work Phone: [facility] 12-06-2024 08:09-0400 Diastolic blood pressure 70 mm[Hg] Chaya Fermin LITIGATION EXAMINER.CNM Work Phone: [facility] 12-06-2024 08:09-0400 Systolic blood pressure 96 mm[Hg] Chaya Fermin LITIGATION EXAMINER.CNM Work Phone: [facility] 11-24-2024 11:08-0400 Body mass index (BMI) [Ratio] 35.96 kg/m2 Chaya Fermin LITIGATION EXAMINER.CNM Work Phone: [facility] 11-24-2024 11:08-0400 Body weight 92.08 kg Chaya Fermin LITIGATION EXAMINER.CNM Work Phone: [facility] 11-24-2024 11:08-0400 Diastolic blood pressure 68 mm[Hg] Chaya Fermin LITIGATION EXAMINER.CNM Work Phone: [facility] 11-24-2024 11:08-0400 Systolic blood pressure 108 mm[Hg] Chaya Fermin LITIGATION EXAMINER.CNM Work Phone: [facility] 11-08-2024 08:00-0400 Body mass index (BMI) [Ratio] 36.14 kg/m2 Chaya Fermin LITIGATION EXAMINER.CNM Work Phone: [facility] 11-08-2024 08:00-0400 Body weight 92.53 kg Chaya Fermin LITIGATION EXAMINER.CNM Work Phone: [facility] 11-08-2024 08:00-0400 Diastolic blood pressure 68 mm[Hg] Chaya Fermin LITIGATION EXAMINER.CNM Work Phone: [facility] 11-08-2024 08:00-0400 Systolic blood pressure 108 mm[Hg] Chaya Fermin LITIGATION EXAMINER.CNM Work Phone: [facility] 10-25-2024 11:20-0400 Body mass index (BMI) [Ratio] 36.31 kg/m2 Chaya Fermin LITIGATION EXAMINER.CNM Work Phone: [facility] 10-25-2024 11:20-0400 Body weight 92.99 kg Chaya Fermin LITIGATION EXAMINER.CNM Work Phone: [facility] 10-25-2024 11:20-0400 Diastolic blood pressure 66 mm[Hg] Chaya Fermin LITIGATION EXAMINER.CNM Work Phone: [facility] 10-25-2024 11:20-0400 Systolic blood pressure 112 mm[Hg] Chaya Fermin LITIGATION EXAMINER.CNM Work Phone: [facility] 09-27-2024 11:19-0400 Body mass index (BMI) [Ratio] 36.31 kg/m2 Chaya Fermin LITIGATION EXAMINER.CNM Work Phone: [facility] 09-27-2024 11:19-0400 Body weight 92.99 kg Chaya Fermin LITIGATION EXAMINER.CNM Work Phone: [facility] 09-27-2024 11:19-0400 Diastolic blood pressure 62 mm[Hg] Chaya Fermin LITIGATION EXAMINER.CNM Work Phone: [facility] 09-27-2024 11:19-0400 Systolic blood pressure 108 mm[Hg] Chaya Fermin LITIGATION EXAMINER.CNM Work Phone: [facility] 08-30-2024 09:10-0400 Body mass index (BMI) [Ratio] 35.96 kg/m2 Chaya Fermin LITIGATION EXAMINER.CNM Work Phone: [facility] 08-30-2024 09:10-0400 Body weight 92.08 kg Chaya Fermin LITIGATION EXAMINER.CNM Work Phone: [facility] 08-30-2024 09:10-0400 Diastolic blood pressure 72 mm[Hg] Chaya Fermin LITIGATION EXAMINER.CNM Work Phone: [facility] 08-30-2024 09:10-0400 Systolic blood pressure 110 mm[Hg] Chaya Fermin LITIGATION EXAMINER.CNM Work Phone: [facility] 08-02-2024 12:58-0400 Body mass index (BMI) [Ratio] 35.61 kg/m2 Chaya Fermin LITIGATION EXAMINER.CNM Work Phone: [facility] 08-02-2024 12:58-0400 Body weight 91.17 kg Chaya Fermin LITIGATION EXAMINER.CNM Work Phone: [facility] 08-02-2024 12:58-0400 Diastolic blood pressure 66 mm[Hg] Chaya Fermin LITIGATION EXAMINER.CNM Work Phone: [facility] 08-02-2024 12:58-0400 Systolic blood pressure 114 mm[Hg] Chaya Fermin LITIGATION EXAMINER.CNM Work Phone: [facility] 07-12-2024 10:17-0500 Body mass index (BMI) [Ratio] 36.31 kg/m2 Chaya Fermin LITIGATION EXAMINER.CNM Work Phone: [facility] 07-12-2024 10:17-0500 Body weight 92.99 kg Chaya Fermin LITIGATION EXAMINER.CNM Work Phone: [facility] 07-12-2024 10:17-0500 Diastolic blood pressure 74 mm[Hg] Chaya Fermin LITIGATION EXAMINER.CNM Work Phone: [facility] 07-12-2024 10:17-0500 Systolic blood pressure 110 mm[Hg] Chaya Fermin LITIGATION EXAMINER.CNM Work Phone: [facility] 07-07-2024 13:10-0500 Body height 160 cm Chayadario Fermin LITIGATION EXAMINER.CNM Work Phone: [facility] 07-07-2024 13:10-0500 Body mass index (BMI) [Ratio] 36.14 kg/m2 Chaya Zander LITIGATION EXAMINER.CNM Work Phone: [facility] 07-07-2024 13:10-0500 Body weight 92.53 kg Chayadario Fermin LITIGATION EXAMINER.CNM Work Phone: [facility] 07-07-2024 13:10-0500 Diastolic blood pressure 78 mm[Hg] Chaya Zander LITIGATION EXAMINER.CNM Work Phone: [facility] 07-07-2024 13:10-0500 Systolic blood pressure 110 mm[Hg] Chaya Zander LITIGATION EXAMINER.CNM Work Phone: [facility] 01-09-2023 07:05-0400 Body weight 80.29 kg Jasmin Boyd LITIGATION EXAMINER.TECHNICAL STENOGRAPHER Work Phone: [facility] 01-09-2023 07:05-0400 Diastolic blood pressure 76 mm[Hg] Jasmin Priesthojoseph LITIGATION EXAMINER.TECHNICAL STENOGRAPHER Work Phone: [facility] 01-09-2023 07:05-0400 Heart rate 78 /min Jasmin Boyd LITIGATION EXAMINER.TECHNICAL STENOGRAPHER Work Phone: [facility] 01-09-2023 07:05-0400 Respiratory rate 16 /min Jasmin Boyd LITIGATION EXAMINER.TECHNICAL STENOGRAPHER Work Phone: [facility] 01-09-2023 07:05-0400 SaO2% (BldA) [Mass fraction] 98 % Jasmin Boyd LITIGATION EXAMINER.TECHNICAL STENOGRAPHER Work Phone: [facility] 01-09-2023 07:05-0400 Systolic blood pressure 108 mm[Hg] Jasmin Boyd LITIGATION EXAMINER.TECHNICAL STENOGRAPHER Work Phone: [facility] 09-30-2022 08:11-0400 Body temperature 97.39 [degF] Ze Pugh DO Work Phone: [facility] 09-30-2022 08:11-0400 Body weight 76.2 kg Ze Pugh DO Work Phone: [facility] 09-30-2022 08:11-0400 Diastolic blood pressure 60 mm[Hg] Ze Pugh DO Work Phone: [facility] 09-30-2022 08:11-0400 Heart rate 80 /min Ze Pugh DO Work Phone: [facility] 09-30-2022 08:11-0400 Respiratory rate 12 /min Ze Pugh DO Work Phone: [facility] 09-30-2022 08:11-0400 Systolic blood pressure 100 mm[Hg] Ze Pugh DO Work Phone: [facility] 05-28-2022 16:33-0500 Diastolic blood pressure 72 mm[Hg] Ze Pugh DO Work Phone: [facility] 05-28-2022 16:33-0500 Systolic blood pressure 104 mm[Hg] Ze Pugh DO Work Phone: [facility] 05-28-2022 16:12-0500 Body temperature 96.6 [degF] Ze Pugh DO Work Phone: [facility] 05-28-2022 16:12-0500 Body weight 76.2 kg Ze Pugh DO Work Phone: [facility] 05-28-2022 16:12-0500 Heart rate 76 /min Ze Pugh DO Work Phone: [facility] 05-28-2022 16:12-0500 Respiratory rate 12 /min Ze Pugh DO Work Phone: [facility] 05-14-2022 09:21-0500 Body height 160 cm Shyanne Reaper LITIGATION EXAMINER.TECHNICAL STENOGRAPHER Work Phone: [facility] 05-14-2022 09:21-0500 Body weight 76.84 kg Shyanne Reaper LITIGATION EXAMINER.TECHNICAL STENOGRAPHER Work Phone: [facility] 05-14-2022 09:21-0500 Diastolic blood pressure 82 mm[Hg] Shyanne Reaper LITIGATION EXAMINER.TECHNICAL STENOGRAPHER Work Phone: [facility] 05-14-2022 09:21-0500 Systolic blood pressure 122 mm[Hg] Shyanne Reaper LITIGATION EXAMINER.TECHNICAL STENOGRAPHER Work Phone: [facility] 04-26-2022 13:36-0500 Body weight 77.11 kg Ze Pugh DO Work Phone: [facility] 04-26-2022 13:36-0500 Diastolic blood pressure 78 mm[Hg] Ze Pugh DO Work Phone: [facility] 04-26-2022 13:36-0500 Heart rate 68 /min Ze Pugh DO Work Phone: [facility] 04-26-2022 13:36-0500 Respiratory rate 16 /min Ze Pugh DO Work Phone: [facility] 04-26-2022 13:36-0500 SaO2% (BldA) [Mass fraction] 100 % Ze Pugh DO Work Phone: [facility] 04-26-2022 13:36-0500 Systolic blood pressure 122 mm[Hg] Ze Pugh DO Work Phone: [facility] 02-28-2022 09:11-0400 Body height 162.6 cm Benita Wynn LITIGATION EXAMINER.TECHNICAL STENOGRAPHER Work Phone: [facility] 02-28-2022 09:11-0400 Body temperature 98.01 [degF] Benita Wynn LITIGATION EXAMINER.TECHNICAL STENOGRAPHER Work Phone: [facility] 02-28-2022 09:11-0400 Body weight 73.03 kg Benita Wynn LITIGATION EXAMINER.TECHNICAL STENOGRAPHER Work Phone: [facility] 02-28-2022 09:11-0400 Heart rate 97 /min Benita Wynn LITIGATION EXAMINER.TECHNICAL STENOGRAPHER Work Phone: [facility] 02-28-2022 09:11-0400 Respiratory rate 16 /min Benita Wynn LITIGATION EXAMINER.TECHNICAL STENOGRAPHER Work Phone: [facility] 02-28-2022 09: SaO2% (BldA) [Mass fraction] 98 % Benita Tianna HERNANDEZ Work Phone: [facility] Encounters Encounter Date Encounter Type Care Provider Facility Start: 01-03-2025 End: 01-03-2025 Patient encounter procedure Tracie Kovacs MD Work Phone: OB/Gynecology Comment on above: 38 weeks gestation o f (HCC) (Primary Dx); Group beta Strep positive; Supervision of high risk in third trimester (HCC); Surrogate (HCC); Diet controlled gestational diabetes mellitus (GDM) in third trimester ([facility]) Start: 01-03-2025 End: 01-03-2025 ambulatory CHAYA FERMIN Facility:[facility] Start: 12-27-2024 End: 12-27-2024 Patient encounter procedure Whi Tech 1 Checkout Supervisor [facility]aternal Medicine Comment on [...] Start: 12-27-2024 End: 12-27-2024 ambulatory ZE PUGH Facility:[facility] Start: 12-06-2024 End: 12-06-2024 E-mail encounter [...] Start: 11-24-2024 End: 01-04-2025 ambulatory CHAYA ZANDER Facility:[facility] Comment on above: Insurance pre author [...] Start: 11-08-2024 End: 11-08-2024 ambulatory ZE PUGH Facility:[facility] Start: 11-01-2024 End: 11-01-2024 E-mail encounter from caregiver Ciarra Hubbard RN Work Phone: Diabetic Education [facility] Start: 11-01-2024 End: 11-01-2024 Nursing evaluation of patient and report Ciarra Hubbard RN Work Phone: Diabetic Education [facility] Comment on above: Diet controlled gest ational diabetes mellitus (GDM) in third trimester (HCC) Start: 11-01-2024 End: 11-01-2024 ambulatory Ciarra Hubbard RN Work Phone: Diabetic Education [facility] Comment on above: Gestational diabetes booklets Start: 10-27-2024 End: 12-27-2024 Follow-up encounter Chaya Fermin APRN.CNM Work Phone: OB/Gynecology Start: 10-27-2024 End: 10-27-2024 ambulatory ZE PUGH Facility:[facility] Start: 10-26-2024 End: 12-26-2024 Follow-up encounter Chaya Fermin APRN.CNM Work Phone: OB/Gynecology Start: 10-25-2024 End: 12-25-2024 Follow-up encounter Nelly Solorzano MD Work Phone: OB/Gynecology Start: 10-25-2024 End: 10-25-2024 Patient encounter procedure Whi Tech 1 Checkout Supervisor [facility]aternal [facility] Comment on above: Encounter for ultras ound to check growth (HCC) (Primary Dx); Obesity affecting in third trimester, unspecified obesity type (HCC); 28 weeks gestation of (HCC) resulting from in vitro fertilization in third trimester (HCC) (Primary Dx); Supervision of high risk in third trimester (HCC); 28 weeks gestation of (HCC) Start: 10-25-2024 End: 10-25-2024 ambulatory ZE PUGH Facility:[facility] Start: 10-17-2024 End: 10-19-2024 Refill Laine Mccollum APRN.CNP Work Phone: Neurology Comment on above: Refill Request Start: 10-16-2024 End: 10-16-2024 ambulatory Marybeth Escamilla Facility:[facility] Start: 09-27-2024 End: 11-27-2024 Follow-up encounter Nelly [...] Phone: OB/Gynecology Comment on above: Request Outside [facility] Records Start: 08-30-2024 End: 08-30-2024 ambulatory CHAYA FERMIN Facility:[facility] Start: 08-30-2024 End: 08-30-2024 Patient encounter procedure Whi Tech 1 Checkout Supervisor [facility] Maternal Medicine Comment on [...] Start: 08-02-2024 End: 08-02-2024 ambulatory ZE PUGH Facility:[facility] Start: 08-02-2024 End: 08-02-2024 Patient encounter [...] Telephone encounter Ze Pugh DO Work Phone: [facility] [place] Comment on above: Refill Request Start: 07-12-2024 End: 07-12-2024 ambulatory [facility] Facility:[facility] Start: 07-12-2024 End: 07-12-2024 Patient encounter procedure Whi Tech 1 Checkout Supervisor Mfm Wstr Mob Maternal Medicine Comment on above: Encounter for antena maria de jesus screening for malformation using ultrasound (Primary Dx); 13 weeks gestation of Supervision of other high risk , antepartum (Primary Dx); 13 weeks gestation of ; Anxiety and depression; resulting from in vitro fertilization in first trimester; Surrogate ; History of PCOS Start: 07-12-2024 End: 07-12-2024 [facility] Facility:[facility] Start: 07-08-2024 End: 09-07-2024 Follow-up encounter Kasandra Guo APRN.CNP Work Phone: OB/Gynecology Start: 07-07-2024 End: 07-07-2024 ambulatory [facility]E PUGH Facility:[facility] Start: 07-07-2024 End: 07-07-2024 Patient encounter [...] End: 04-30-2023 Patient encounter procedure Lolis Patrick APRN.TECHNICAL STENOGRAPHER Work Phone: [facility] Comment on above: Procedure not karlo d out (Primary Dx) Start: 04-29-2023 End: 04-29-2023 ambulatory Neda Carr LITIGATION EXAMINER.TECHNICAL STENOGRAPHER Work Phone: Telemedicine Comment on above: Treatment not availa ble (Primary Dx) Start: 02-05-2023 ambulatory Jasmin Arnaldojoseph LITIGATION EXAMINER.TECHNICAL STENOGRAPHER Work Phone: [facility] [place] Comment on above: Video call not worki ng Start: 01-09-2023 End: 01-09-2023 Patient encounter procedure Jasmin Boyd LITIGATION EXAMINER.TECHNICAL STENOGRAPHER Work Phone: [facility] [place] Comment on above: Wellness examination (Primary Dx); Anxiety and depression; PCOS (polycystic ovarian syndrome); Other migraine without status migrainosus, not intractable; Situational insomnia; Vitamin D deficiency; Hyperlipidemia LDL goal <100; Screening-pulmonary TB Start: 01-09-2023 End: 01-09-2023 Patient encounter status Jasmin Boyd LITIGATION EXAMINER.TECHNICAL STENOGRAPHER Work Phone: [facility] Work Phone: Start: 10-29-2022 Refill Ze garcia DO Work Phone: [facility] Comment on above: Refill Request Start: 10-03-2022 Telephone encounter Ze horton DO Work Phone: [facility] Comment on above: Results Start: 09-30-2022 End: 09-30-2022 Patient encounter procedure Ze Pugh DO Work Phone: [facility] [place] Comment on above: Anxiety and depressi on (Primary Dx); Situational insomnia; Other migraine without status migrainosus, not intractable; Fatigue, unspecified type; PCOS (polycystic ovarian syndrome); Well adult exam Start: 09-30-2022 End: 09-30-2022 Patient encounter status Ze Pugh DO Work Phone: [facility] [place] Start: 08-16-2022 End: 03-24-2023 Subsequent hospital visit by physician Mri 7 Radio Main Q (I-Stat/1.5t/3t) Work Phone: MRI Q Comment on above: Primary dysmenorrhea [N94.4] Start: 06-08-2022 Refill Ze garcia DO Work Phone: [facility] [place] Comment on above: Refill Request Start: 05-28-2022 End: 05-28-2022 Patient encounter procedure Ze Pugh DO Work Phone: [facility] [place] Comment on above: Anxiety and depressi [...] DO Work Phone: [facility] Comment on above: Anxiety and depressi on (Primary Dx) Start: 03-26-2022 Telephone encounter Shyanne mota APRN.CNP Work Phone: Gynecology Comment on above: Multimedia Author - O ther (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/) Start: 03-12-2022 End: 03-12-2022 Manual pelvic examination Chaya Fermin APRN.CNM Work Phone: OB/Gynecology Comment on above: Pelvic pain in femal e (Primary Dx); Dysmenorrhea Start: 03-12-2022 End: 03-12-2022 Telemedicine consultation with patient Chaya Fermin APRN.CNM Work Phone: [place] [facility] Start: 02-28-2022 End: 02-28-2022 Patient encounter procedure Benita Wynn APRN.CNP Work Phone: [facility] Comment on above: Corneal irritation o f right eye (Primary Dx) Start: 12-08-2021 Refill Ann-Marie Torres APR N.TECHNICAL STENOGRAPHER Work Phone: Gastroenterology Comment on above: Refill Request Start: 12-07-2021 Refill Ann-Marie Torres APR N.TECHNICAL STENOGRAPHER Work Phone: Gastroenterology Comment on above: Refill Request Start: 12-07-2021 Refill Ann-Marie Torres APR N.TECHNICAL STENOGRAPHER Work Phone: Gastroenterology Comment on above: Refill Request Start: 11-03-2021 Refill Jasmin Tannhof LITIGATION EXAMINER.TECHNICAL STENOGRAPHER Work Phone: [facility] [place] Comment on above: Refill Request Start: 10-05-2021 Refill Jasmin Tannhof LITIGATION EXAMINER.TECHNICAL STENOGRAPHER Work Phone: [facility] [place] Comment on above: Refill Request Start: 10-01-2021 ambulatory Perla mota OD Work Phone: Ophthalmology Comment on above: Contact trials Start: 09-13-2021 Phys/qhp online evaluation & management service Roxana De Jesus LITIGATION EXAMINER.TECHNICAL STENOGRAPHER Work Phone: Telemedicine Comment on above: Cough (Primary Dx) Start: 08-31-2021 End: 08-31-2021 Patient encounter procedure Perla Bailey OD Work Phone: Ophthalmology Comment on above: Myopia, bilateral (P rimary Dx); Dry eye syndrome of bilateral lacrimal glands Start: 08-31-2021 Phys/qhp online evaluation & management service Brayan Rossi LITIGATION EXAMINER.TECHNICAL STENOGRAPHER Work Phone: Telemedicine Comment on above: Acute rhinosinusitis (Primary Dx) Start: 08-16-2021 Refill Ann-Marie Torres APR N.TECHNICAL STENOGRAPHER Work Phone: Gastroenterology Comment on above: Refill Request Start: 02-28-2021 Telephone encounter Ze horton DO Work Phone: [facility] [place] Comment on above: UTI Start: 09-18-2017 End: 06-22-2018 Patient requested procedure Perla Bailey OD Work Phone: [facility] Procedures Date Procedure Procedure Detail Performing Clinician [...] Speci men Type: BLOOD SPECIMEN Ordering Facility: [facility] Address: [address] [place] [address] Performed By: #### T SPN #### CC MAIN BLOOD BANK [facility] [id number] [address] [place] [address] [place] [address] [place] Start: 10-25-2024 Us [...] Detail Author Start: 08-03-2029 Urine microalbumin profile [facility] Start: 03-01-2027 HPV TESTING HPV TESTING [facility] Start: 03-01-2027 PAP TESTING PAP TESTING [facility] Start: 03-01-2027 Screening for malignant neoplasm of cervix Cervical Cancer Screening [facility] Start: 01-05-2025 End: 01-05-2025 Patient encounter procedure 01/05/2025 11:15 AM EDT Routine Office Visit OB/Gynecology [address] [place] [address] Chaya Fermin APRN.CNM [address] [place] [address] OB OB/Gynecology Comment on above: OB Start: 01-03-2025 End: 01-03-2025 Patient encounter procedure 01/03/2025 2:50 PM EDT Routine Office Visit OB/Gynecology [address] [place] [address] Tracie Kovacs MD [address] [place] [address] NST/OB OB/Gynecology Comment on above: NST/OB Start: 01-03-2025 End: 01-03-2025 Patient encounter procedure 01/03/2025 12:45 PM EDT Office Visit [facility] Ophthalmology [address] [place] [address] Perla Bailey, OD [address] [place] [address] complete with cl eval Ophthalmology Comment on [...] Office Visit OB/Gynecology [address] [place] [address] Chaya Fermin APRN.CN [address] [place] [address] OB OB/Gynecology Comment on above: OB Start: 11-29-2024 End: 11-29-2024 Follow-up encounter 11/29/2024 9:00 AM EDT [facility] Diabetic Education [facility] [address] [id number] [place] [address] [place] [address] 1 mo GDM follow up Diabetic Education [facility] Comment on above: 1 mo GDM follow up Start: 11-25-2024 End: 11-25-2024 Nutrition therapy 11/25/2024 10:30 AM EDT [facility] [address] [place] [address] Eduarda Barboza, RD [address] [place] [address] None [facility] Comment on above: None Start: 11-24-2024 End: 02-23-2025 Ferritin [Mass/volume] in Serum or Plasma [facility] Comment on above: Expected: 11/24/2024, Expires: Start: 11-24-2024 End: 02-23-2025 Iron and Iron binding capacity panel - Serum or Plasma [facility] Work Phone: Comment on above: Expected: 11/24/2024, Expires: Start: 11-24-2024 End: 11-24-2024 Patient encounter procedure Maternal Medicine Comment on above: Growth OB Start: 11-24-2024 End: 11-24-2024 ambulatory 11/24/2024 10:00 AM EDT Results Only [place] [facility] Laboratory [address] [place] [address] [place] [facility] Laboratory Start: 11-16-2024 End: 11-16-2024 Patient encounter procedure 11/16/2024 2:00 PM EDT Routine Office Visit Maternal Medicine [address] [place] [address] growth Maternal Medicine Comment on above: growth Start: 11-08-2024 End: 02-07-2025 Hepatitis B virus surface Ag [Presence] in Serum HEPATITIS B SURFACE ANTIGEN Lab Routine Supervision of high risk in third trimester (HCC) 30 weeks gestation of (HCC) Expected: 11/08/2024, Expires: 02/07/2025 [facility] Comment on above: Expected: 11/08/2024, Expires: Start: 11-08-2024 End: 02-07-2025 HIV 1+2 Ab [Presence] in Serum or Plasma by Immunoassay HIV 1/2 COMBO WITH REFLEX TO DIFFERENTIATION Lab Routine Supervision of high risk in third trimester (HCC) 30 weeks gestation of (HCC) Expected: 11/08/2024, Expires: 02/07/2025 [facility] Work Phone: Comment on above: Expected: 11/08/2024, Expires: Start: 11-08-2024 End: 02-07-2025 RUBELLA IGG ANTIBODY RUBELLA IGG ANTIBODY Lab Routine Supervision of high risk in third trimester (HCC) 30 weeks gestation of (HCC) Expected: 11/08/2024, Expires: 02/07/2025 [facility] Comment on above: Expected: 11/08/2024, Expires: Start: 11-08-2024 End: 11-08-2024 Patient encounter procedure 11/08/2024 8:00 AM EDT Routine Office Visit OB/Gynecology [address] [place] [address] Chaya Fermin APRN.CNM [address] [place] [address] OB OB/Gynecology Comment on above: OB Start: 10-27-2024 End: 10-27-2024 ambulatory 10/27/2024 7:15 AM EDT Results Only [place] Grahamwn [facility] Laboratory [address] [place] [address] Abnormal glucose in , antepartum ([facility]) [O99.810] [facility] Laboratory Comment on above: Abnormal glucose in , antepartu m ([facility]) [O99.810] Start: 10-25-2024 End: 10-25-2024 Patient encounter procedure Maternal Medicine Comment on above: Growth Start: 10-25-2024 End: 10-25-2024 ambulatory 10/25/2024 10:15 AM EDT Results Only [place] [facility] Laboratory [address] [place] [address] Glucose Test [facility] Laboratory Comment on above: Glucose Test Start: 09-27-2024 End: 12-27-2024 ANEMIA REFLEX PANEL ANEMIA REFLEX PANEL Lab Routine Supervision of other high risk pregnancies, second trimester (HCC) Surrogate (HCC) Anxiety and depression 24 weeks gestation of (HCC) Expected: 09/27/2024, Expires: 12/27/2024 [facility] Comment on above: Expected: 09/27/2024, Expires: Start: 09-27-2024 End: 09-27-2025 GESTATIONAL GLUCOSE SCREEN, 1-HOUR, 50 GRAM, NON-FASTING GESTATIONAL GLUCOSE SCREEN, 1-HOUR, 50 GRAM, NON-FASTING Lab Routine Supervision of other high risk pregnancies, second trimester (HCC) Surrogate (HCC) Anxiety and depression 24 weeks gestation of ([facility]) Screening for diabetes mellitus Expected: 09/27/2024, Expires: 09/27/2025 [facility] Work Phone: Comment on above: Expected: 09/27/2024, Expires: Start: 09-27-2024 End: 09-27-2025 SYPHILIS TREPONEMAL W/REFLEX SYPHILIS TREPONEMAL W/REFLEX Lab Routine Supervision of other high risk pregnancies, second trimester (HCC) Surrogate (HCC) Anxiety and depression 24 weeks gestation of (HCC) Expected: 09/27/2024, Expires: 09/27/2025 [facility] Comment on above: Expected: 09/27/2024, Expires: Start: 09-27-2024 End: 12-27-2024 TYPE + SCREEN TYPE + SCREEN Blood Bank Routine Supervision of other high risk pregnancies, second trimester (HCC) Surrogate (HCC) Anxiety and depression 24 weeks gestation of (HCC) Expected: 09/27/2024, Expires: 12/27/2024 [facility] Comment on above: Expected: 09/27/2024, Expires: Start: 09-27-2024 End: 09-27-2024 ambulatory 09/27/2024 9:00 AM EDT Procedure Pediatric Cardiology [address] [place] [address] Moses Caruso MD [address] [place], [place] [id number] single 2Supervision of other high risk pregnancies, second trimester (HCC) [O09.892] Pediatric Cardiology Comment on above: single 2Supervision of other high risk pregnancies, second trimester (HCC) [O09.892] Start: 09-27-2024 End: 09-27-2024 Patient encounter procedure OB/Gynecology Comment on above: OB single Start: 08-30-2024 End: 08-30-2024 Patient encounter procedure Maternal Medicine Comment on above: Anatomy Anatomy/OB Start: 08-03-2024 End: 08-03-2024 ambulatory 08/03/2024 7:00 AM EDT [facility] Neurology [address] [address] Laine Mccollum APRN.TECHNICAL STENOGRAPHER [address] [address] Supervision of other high risk pregnancies, second trimester [O09.892]; Other migraine without status migrainosus, not intractable [G43.809] Neurology Comment on above: Supervision of other high risk pregnanci es, second trimester [O09.892]; Other migraine without status migrainosus, not intractable [G43.809] Start: 08-02-2024 End: 08-02-2024 Patient encounter procedure 08/02/2024 1:00 PM EDT Routine Office Visit OB/Gynecology [address] [place] [address] Chaya Fermin APRN.CNM [address] [place], [place] [address] OB OB/Gynecology Comment on above: OB Start: 07-07-2024 End: 07-07-2025 OBSTETRIC ULTRASOUND WHI OBSTETRIC ULTRASOUND WHI Anc Imaging Routine Supervision of other high risk pregnancies, second trimester 12 weeks gestation of Expected: 07/07/2024, Expires: 07/07/2025 [facility] Work Phone: Comment on above: Expected: 07/07/2024, Expires: Start: 01-25-2024 Covid-19 Vaccine ( season) Covid-19 Vaccine ( season) [facility] Start: 01-10-2024 HEPATITIS B (1 of 3 - 3-dose series) HEPATITIS B (1 of 3 - 3-dose series) [facility] Comment on above: Postponed from 1990 (Declined at t his time) Start: 01-10-2024 Hepatitis B Vaccine (1 of 3 - 19+ 3-dose series) Hepatitis B Vaccine (1 of 3 - 19+ 3-dose series) [facility] Comment on above: Postponed from 2009 (Declined at t his time) Start: 01-10-2024 Hepatitis B Vaccine (1 of 3 - 3-dose series) Hepatitis B Vaccine (1 of 3 - 3-dose series) [facility] Comment on above: Postponed from 1990 (Declined at t his time) Start: 10-01-2023 COVID-19 VACCINE (#1) COVID-19 VACCINE (#1) [facility] Comment on above: Postponed from 02/06/1991 (Declined at t his time) Start: 01-24-2023 Covid-19 Vaccine (2022- season) Covid-19 Vaccine ( season) [facility] Start: 01-09-2023 End: 03-11-2023 25-hydroxyvitamin D3 [Mass/volume] in Serum or Plasma [facility] Work Phone: Comment on above: Expected: 01/09/2023, Expires: Start: 01-09-2023 End: 03-11-2023 BLOOD TB SCREEN [facility] Work Phone: Comment on above: Expected: 01/09/2023, Expires: Start: 01-09-2023 End: 03-11-2023 Lipid 1996 panel - Serum or Plasma [facility] Work Phone: Comment on above: Expected: 01/09/2023, Expires: Start: 09-30-2022 End: 11-30-2022 25-hydroxyvitamin D3 [Mass/volume] in Serum or Plasma [facility] Work Phone: Comment on above: Expected: 09/30/2022, Expires: Start: 09-30-2022 End: 11-30-2022 Cobalamin (Vitamin B12) [Mass/volume] in Serum or Plasma [facility] Work Phone: Comment on above: Expected: 09/30/2022, Expires: Start: 09-30-2022 End: 11-30-2022 Comprehensive metabolic 2000 panel - Serum or Plasma [facility] Work Phone: Comment on above: Expected: 09/30/2022, Expires: 3 Start: 09-30-2022 End: 11-30-2022 Hemoglobin A1c in Blood [facility] Work Phone: Comment on above: Expected: 09/30/2022, Expires: 3 Start: 09-30-2022 End: 11-30-2022 Insulin [Units/volume] in Serum or Plasma [facility] Work Phone: Comment on above: Expected: 09/30/2022, Expires: 3 Start: 09-30-2022 End: 11-30-2022 Lipid 1996 panel - Serum or Plasma [facility] Work Phone: Comment on above: Expected: 09/30/2022, Expires: 3 Start: 09-30-2022 End: 11-30-2022 Thyrotropin [Units/volume] in Serum or Plasma [facility] Work Phone: Comment on above: Expected: 09/30/2022, Expires: 3 Start: 09-30-2022 End: 11-30-2022 Thyroxine (T4) free [Mass/volume] in Serum or Plasma [facility] Work Phone: Comment on above: Expected: 09/30/2022, Expires: 3 Start: 09-30-2022 End: 11-30-2022 Triiodothyronine (T3) Free [Mass/volume] in Serum or Plasma [facility] Work Phone: Comment on above: Expected: 09/30/2022, Expires: 3 Start: 09-18-2022 PAP TESTING PAP TESTING [facility] Start: 05-26-2021 DEPRESSION ASSESSMENT DEPRESSION ASSESSMENT [facility] Start: 08-09-2020 HPV TESTING HPV TESTING [facility] Start: 2017 HPV Vaccine (1 - 3-dose SCDM series) HPV Vaccine (1 - 3-dose SCDM series) [facility] Start: 2009 Hepatitis B Vaccine (1 of 3 - 19+ 3-dose series) Hepatitis B Vaccine (1 of 3 - 19+ 3-dose series) [facility] Start: 2002 Adult depression screening assessment DEPRESSION SCREENING [facility] Start: 08-07-1995 COVID-19 VACCINE (#1) COVID-19 VACCINE (#1) [facility] Start: 08-07-1995 COVID-19 VACCINE (1) COVID-19 VACCINE (1) [facility] Start: 02-06-1991 COVID-19 VACCINE (#1) COVID-19 VACCINE (#1) [facility] Start: 1990 HEPATITIS B (1 of 3 - 3-dose series) HEPATITIS B (1 of 3 - 3-dose series) [facility] End: 08-30-2025 ECHO ECHO Cardiology Routine Supervision of other high risk pregnancies, second trimester (HCC) Surrogate (HCC) 20 weeks gestation of (HCC) 1 Occurrences starting 08/30/2024 until 08/30/2025 [facility] Work Phone: Comment on above: 1 Occurrences starting 08/30/2024 until 08/30/2025 nonstress test NON-S TRESS TEST Procedures Routine Supervision of high risk in third trimester (HCC) Surrogate (HCC) 37 weeks gestation of (HCC) Ordered: 12/27/2024 [facility] Work Phone: Comment on above: Ordered: 12/27/2024 End: 09-02-2025 MR Brain WO contrast MRI BRAIN WO IVCON Radiology Routine Migraine without aura and without status migrainosus, not intractable 1 Occurrences starting 08/03/2024 until 09/02/2025 [facility] Work Phone: Comment on above: 1 Occurrences starting 08/03/2024 until 09/02/2025 End: 06-13-2023 Mri pelvis w/o & w/contrast material MRI FEMALE PELVIS WO/W IVCON Radiology Routine Primary dysmenorrhea Pelvic and perineal pain Deep dyspareunia 1 Occurrences starting 05/14/2022 until 06/13/2023 [facility] Work Phone: Comment on above: 1 Occurrences starting 05/14/2022 until 06/13/2023 End: 08-16-2022 Mri pelvis w/o & w/contrast material [facility] Work Phone: Comment on above: 1 Occurrences starting 08/16/2022 until 08/16/2022 End: 08-14-2025 OBSTETRIC ULTRASOUND WHI OBSTETRIC ULTRASOUND WHI Anc Imaging Routine Supervision of high risk in third trimester ([facility]) Obesity affecting in third trimester, unspecified obesity type (HCC) Once per month for 4 Occurrences starting 08/30/2024 until 08/14/2025 [facility] Work Phone: Comment on above: Once per month for 4 Occurrences startin g 08/30/2024 until 08/14/2025 End: 01-18-2025 OBSTETRIC ULTRASOUND WHI OBSTETRIC ULTRASOUND WHI Anc Imaging Routine Diet controlled gestational diabetes mellitus (GDM) in third trimester ([facility]) Once per month for 5 Occurrences starting 10/27/2024 until 01/18/2025 [facility] Work Phone: Comment on above: Once per month for 5 Occurrences startin g 10/27/2024 until 01/18/2025 ROUTINE, GR OUP B STREPTOCOCCUS BY PCR ROUTINE, GROUP B STREPTOCOCCUS BY PCR Microbiology Routine Supervision of high risk in third trimester ([facility]) 12/27/2024 9:41 AM EDT [facility] URINE OB DIP B/O URINE OB DIP B/ O Lab Routine resulting from in vitro fertilization in third trimester ([facility]) Supervision of high risk in third trimester ([facility]) 28 weeks gestation of ([facility]) Ordered: 10/25/2024 [facility] Work Phone: Comment on above: Ordered: 10/25/2024 [facility] Immunizations Immunization Date Immunization Notes Care Provider Maxine rollins 08-04-2019 tetanus toxoid, redu kathy diphtheria toxoid, and acellular pertussis vaccine, adsorbed Ann-Marie Torres LITIGATION EXAMINER.TECHNICAL STENOGRAPHER Work Phone: [facility] Work Phone: 03-30-2019 influenza, injectabl e, quadrivalent, contains preservative Ann-Marie Torres LITIGATION EXAMINER.TECHNICAL STENOGRAPHER Work Phone: [facility] 04-13-2018 tetanus toxoid, redu kathy diphtheria toxoid, and acellular pertussis vaccine, adsorbed Ann-Marie Torres APRN.TECHNICAL STENOGRAPHER Work Phone: [facility] 02-17-2018 influenza virus vaccine, unspecified formulation Ann-Marieaman Torres TAB.TECHNICAL STENOGRAPHER Work Phone: [facility] Payers Date Payer Category Payer Self-pay 2024 Unknown [id number] 2024 Unknown [id number] 2022 Private Health Insurance [id number] 2022 Unknown [id number] 2022 Unknown [id number] 2019 Medicaid [place] [employer] [place] [id number] 2019-Present [phone] [address] [place] [address] Medicaid [id number] 2019 Medicaid [id number] Unknown [id number] Social History Date Type Detail Facility Start: 02-28-2022 Tobacco smoking stat [facility] Never smoked tobacco [facility] Start: 06-08-2021 End: 11-24-2024 Alcohol intake Ex-drinker (finding) [facility] Start: 06-27-2020 End: 04-25-2022 History SDOH Alcohol Frequency 2 [facility] Start: 06-27-2020 End: 01-20-2022 History SDOH Alcohol Std Drinks 1 [facility] Start: 09-18-2017 History SDOH Alcohol Comment occasionally, not while [facility] Start: 06-27-2020 End: 04-25-2022 History SDOH Social Connections Phone 5 [facility] Start: 06-27-2020 History SDOH Social Connections Get Together 4 [facility] Start: 06-27-2020 End: 04-25-2022 History SDOH Social Connections Nondenominational 3 [facility] Start: 06-27-2020 History SDOH Physica l Activity MPS 9 [facility] Start: 06-27-2020 Education 17 [facility] Start: 1990 Sex Assigned At Not on file C [facility] Start: 08-10-2021 End: 08-20-2021 Exposure to SARS-CoV-2 (event) Unable to assess [facility] Work Phone: Start: 02-28-2022 Tobacco use and exposure Smoke less tobacco non-user [facility] Start: 01-20-2022 End: 04-25-2022 History SDOH Physical Activity DPW 0 [facility] Start: 02-18-2022 End: 04-26-2022 Exposure to SARS-CoV-2 (event) Not sure [facility] Work Phone: Start: 04-25-2022 End: 07-07-2024 History of Social function [facility] Start: 04-25-2022 End: 07-07-2024 Social connection and isolation panel [facility] Do you belong to any clubs or organizations such as adventism groups, unions, fraternal or athletic groups, or school groups? No [facility] Are you now , , , , never or living with a partner? [facility] How often to you hav e a drink containing alcohol? 2-4 times a month [facility] How many standard dr inks containing alcohol do you have on a typical day? 1 or 2 [facility] How often do you hav e 6 or more drinks on 1 occasion? Never [facility] Start: 04-26-2012 How hard is it for y ou to pay for the very basics like food, housing, medical care, and heating Not hard at all [facility] Do you feel stress - tense, restless, nervous, or anxious, or unable to sleep at night because your mind is troubled all the time - these days [OSQ] Very much [facility] (I/We) worried wheth er (my/our) food would run out before (I/we) got money to buy more. Never true [facility] Do you belong to any clubs or organizations such as adventism groups, unions, fraternal or athletic groups, or school groups? Yes [facility] How often to you hav e a drink containing alcohol? Monthly or less [facility] Start: 04-24-2024 [facility] Medical Equipment Procedure Code Equipment Code Equipment Origin al Text Equipment Identifier Dates [id number], [id number] Start: 02-28-2022 End: 02-28-2022 Goals Date Patient Goal Desired Activity /State Personal health goal Functional Status Date Assessment Result Facility 06-22-2014 Are you deaf, or do you have serious difficulty hearing No 06/22/2014 7:59 AM Violeta Curran Cma No [facility] 06-22-2014 Are you blind, or do you have serious difficulty seeing, even when wearing glasses No 06/22/2014 7:59 AM Violeta Curran Cma No [facility] 06-22-2014 Do you have serious difficulty walking or climbing stairs No 06/22/2014 7:59 AM Violeta Curran Cma No [facility] 06-22-2014 Do you have difficul ty dressing or bathing No 06/22/2014 7:59 AM Violeta Curran Cma No [facility] 06-22-2014 Because of a physica l, mental, or emotional condition, do you have difficulty doing errands alone such as visiting a physician's office or shopping No 06/22/2014 7:59 AM Violeta Curran Cma No [facility] Mental Status Date Assessment Result Facility 06-22-2014 Because of a physica l, mental, or emotional condition, do you have serious difficulty concentrating, remembering, or making decisions No 06/22/2014 7:59 AM Violeta Curran Cma No [facility] Clinical Notes 02-11-2019 to 01-04-2025 Telephone Encounter - Kandy Rivers RN - 01/04/2025 8:39 AM EDTTelephone Encounter - Kandy Rivers RN - 01/04/2025 8:39 AM EDTTelephone Encounter - Tracie Garza RN - 12/29/2024 9:58 AM EDT Note Date & Type Note Facility 01-04-2025 Telephone encounter Note Update per Pt on 01/03/25- Pt states [facility] is denying coverage at [facility] and [facility] agency will be covering charges. Fax received from [facility] 01/03/25, letter states they do not have an in-network provider able to render the services needed & they will not cover all or part of the services requested because it is not medically necessary. Denial information given to MARVIN to review. Kandy Rivers RN [facility] 01-04-2025 Miscellaneous Notes Update per Pt on 01/03/25- Pt states [facility] is denying coverage at [facility] and [facility] agency will be covering charges. Fax received from [facility] 01/03/25, letter states they do not have an in-network provider able to render the services needed & they will not cover all or part of the services requested because it is not medically necessary. Denial information given to MARVIN to review. Kandy Rivers RN [facility] Patient financial service professional returned my call from yesterday. Was told that [facility] insurance is not accepted there unless patient came in through the Emergency Room. Called and spoke with patient. She did speak with [facility] earlier in her and their department suggested to her that we complete forms through her insurance - just as we have been doing. Notified patient that we did resubmit the forms again yesterday. Patient stated that regardless, she is planning to deliver with [facility]. Out of pocket financial responsibility will be on the surrogacy company - per patient. The insurance premium auditor did not investigate when choosing a provider and location for this delivery, per patient. Tracie Garza RN Left message with [facility] Patient Financial Services to call our back line. Patient is scheduled for an induction on 01/10. Want to ensure that [facility] will allow her to come in for this if her insurance is OON (according to the information below). If so, want to let them know that we have been working on this. Should (or has) patient spoke with [facility] herself? We don't typically do this for OON patients during . We have them deliver with [facility]. Tracie Garza RN Sarah from [facility] ([phone]) called and states sharebroker has called [facility] to see if they [...] insurance will cover provider OV, but not [facility]. Only hospital covered-is [facility]. Form re-faxed to [facility] with area circled on face sheet that states Provider only delivers at [facility] and does not deliver at [facility] and also faxed to Sarah from [facility] at [phone]. Gave her [facility] Patient Financial Services phone # to contact them to see if they can assist. Kandy Rivers RN Authorization request form faxed to [facility]. Kandy Rivers RN Farzaneh Elise[facility] [employer] ([place]) [phone] Calling stating patient insurance clerk (3rd green party) has informed her that [facility] (Pt's insurance company) states Pt's OB OV are in network; However, [facility] is out of network and form needs filled out JEREMY. Therefore, she states she was informed that either filled had been filled out incorrectly or not enough information was filled out and this needs to be completed so that Bryce can deliver at [facility]. Single case agreement needs completed. Informed her that form will be filled out and faxed to [facility]. Farzaneh states she will call [facility] tomorrow to f/u with them and will call our office if any problems. Kandy Rivers RN After multiple transfers, nurse was told to call [facility] directly at [phone] and ask to initiate a single case agreement. Call reference number: [id number] Transferred to prior authorization department to initiate the single case agreement. Prior authorization department initiated single case agreement and medical records faxed to [phone]. Pending authorization number: [id number]. Prior authorization department did mention after entering the [facility] tax ID and NPI that it was in-network? Previous [facility] patient accounting representative told nurse that it was NOT in network? Mixed information was given during phone conversation and multiple transfers. documented in this encounter [facility] 01-03-2025 Note HNO ID: [id number] Author: TRACIE KOVACS MD Service: ? Author Type: Physician Type: Progress Notes Filed: 01/03/2025 13:28 Note Text: NST SUMMARY PROVIDER ASSESSMENT AND INTERPRETATION Indications for NST: IVF Prenancy Baseline: 130 Variability: Moderate Accelerations: Present 15 X 15 Decelerations: None Interpretation: Reactive SIGNATURE: Tracie Kovacs MD [facility] 01-03-2025 Progress note Formatting of t his [...] week ASSESSMENT/PLAN: 1. 38 weeks gestation of ([facility]) - ICD9: V22.2, ICD10: Z3A.38 (primary diagnosis) - URINE OB DIP B/O 2. Group beta Strep positive - ICD9: 041.02, ICD10: B95.1 - URINE OB DIP B/O 3. Supervision of high risk in third trimester ([facility]) - ICD9: V23.9, ICD10: O09.93 - URINE OB DIP B/O 4. Sur[facility] ([facility]) - ICD9: V22.1, ICD10: Z33.3 - URINE OB DIP B/O 5. Diet controlled gestational diabetes mellitus (GDM) in third trimester ([facility]) - ICD9: 648.83, ICD10: O24.410 - URINE OB DIP B/O Tracie Kovacs MD [facility] 01-03-2025 History of Present illness Narrative NST SUMMARY PROVIDER ASSESSMENT AND INTERPRETATION Indications for NST: IVF Prenancy Baseline: 130 Variability: Moderate Accelerations: Present 15 X 15 Decelerations: None Interpretation: Reactive SIGNATURE: Tracie Kovacs MD documented in this encounter [facility] 01-03-2025 Miscellaneous Notes S: Bryce Ramirez is [...] week ASSESSMENT/PLAN: 1. 38 weeks gestation of ([facility]) - ICD9: V22.2, ICD10: Z3A.38 (primary diagnosis) - URINE OB DIP B/O 2. Group beta Strep positive - ICD9: 041.02, ICD10: B95.1 - URINE OB DIP B/O 3. Supervision of high risk in third trimester ([facility]) - ICD9: V23.9, ICD10: O09.93 - URINE OB DIP B/O 4. Surrogate ([facility]) - ICD9: V22.1, ICD10: Z33.3 - URINE OB DIP B/O 5. Diet controlled gestational diabetes mellitus (GDM) in third trimester ([facility]) - ICD9: 648.83, ICD10: O24.410 - URINE OB DIP B/O Tracie Kovacs MD documented in this encounter [facility] 01-03-2025 Instructions Heather Steward MA - 01/03/2025 12:56 PM EDT SEQUENTIAL SCREENINGS The [facility] offers sequential screenings for women who are [...] It will require an appointment with our i&c technician. This is not an ultrasound performed [...] the above symptoms, contact our office at [phone] and ask to speak with a nurse. After hours, you can call doctors registry at [phone] OR call [facility] at [phone] and ask to have the doctor production assembler paged. If you consider this an emergency, dial 9--5 or go to your nearest emergency department. NEED HELP? Are you dealing with a violent or abusive relationship? Are you a victim of rape or sexual assult? Call [facility] ([place]) 24 hour Crisis Hotline: 176.331.7347 or 685-397-4702. MANUAL Your Guide to a Healthy manual is now on-line. Visit [email or web address] ncyGuide to download your free copy documented in this encounter [facility] 12-29-2024 Telephone encounter Note [facility] Patient financial service professional returned my call from yesterday. Was told that [facility] insurance is not accepted there unless patient came in through the Emergency Room. Called and spoke with patient. She did speak with [facility] earlier in her and their department suggested to her that we complete forms through her insurance - just as we have been doing. Notified patient that we did resubmit the forms again yesterday. Patient stated that regardless, she is planning to deliver with [facility]. Out of pocket financial responsibility will be on the surrogacy company - per patient. The insurance premium auditor did not investigate when choosing a provider and location for this delivery, per patient. Tracie Garza RN [facility] 12-28-2024 Telephone encounter Note Left message with [facility] Patient Financial Services to call our back line. Patient is scheduled for an induction on 01/10. Want to ensure that [facility] will allow her to come in for this if her insurance is OON (according to the information below). If so, want to let them know that we have been working on this. Should (or has) patient spoke with [facility] herself? We don't typically do this for OON patients during . We have them deliver with [facility]. Tracie Garza, RN [facility] 12-28-2024 Telephone encounter Note Sarah from [facility] [employer] ([phone]) called and states sharebroker has called [facility] to see if they [...] insurance will cover provider OV, but not [facility]. Only hospital covered-is [facility]. Form re-faxed to [facility] with area circled on face sheet that states Provider only delivers at [facility] and does not deliver at [facility] and also faxed to Sarah from [facility] at [phone]. Gave her [facility] Patient Financial Services phone # to contact them to see if they can assist. Kandy Rivers RN [facility] 12-27-2024 Telephone encounter Note Authorization request form faxed to [facility]. Kandy Rivers RN [facility] 12-27-2024 Telephone encounter Note [facility]ane[facility] [employer] ([place]) [phone] Calling stating patient insurance clerk (3rd green party) has informed her that [facility] (Pt's insurance company) states Pt's OB OV are in network; However, [facility] is out of network and form needs filled out JEREMY. Therefore, she states she was informed that either filled had been filled out incorrectly or not enough information was filled out and this needs to be completed so that Bryce can deliver at [facility]. Single case agreement needs completed. Informed her that form will be filled out and faxed to [facility]. Farzaneh states she will call [facility] tomorrow to f/u with them and will call our office if any problems. Kandy Rivers RN [facility] 12-27-2024 Note Indication Evaluation of growth, Evaluation [...] 8 oz EFW by: Hadlock (HC-AC-FL) Extended Window Trimmer 4.7 mm Extremities / Bony Struc FL [...] weeks with Growth US Chaya Fermin APRN.CNM [facility] 12-27-2024 Miscellaneous Notes MARIVN-S: Bryce Ramirez is a 34 year old [...] Chaya Fermin APRN.CNM documented in this encounter [facility] 12-27-2024 Instructions Myrna Cavanaugh MA - 12/27/2024 9:09 AM EDT SEQUENTIAL SCREENINGS The [facility] offers sequential screenings for women who are [...] It will require an appointment with our i&c technician. This is not an ultrasound performed [...] the above symptoms, contact our office at [phone] and ask to speak with a nurse. After hours, you can call doctors registry at [phone] OR call [facility] at [phone] and ask to have the doctor production assembler paged. If you consider this an emergency, dial 9--1 or go to your nearest emergency department. NEED HELP? Are you dealing with a violent or abusive relationship? Are you a victim of rape or sexual assult? Call [facility] ([place]) 24 hour Crisis Hotline: 825.294.8764 or 947-208-9377. MANUAL Your Guide to a Healthy manual is now on-line. Visit [email or web address] ncyGuide to download your free copy documented in this encounter [facility] 12-07-2024 Telephone encounter Note After multiple transfers, nurse was told to call [facility] directly at [phone] and ask to initiate a single case agreement. Call reference number: [id number] Transferred to prior authorization department to initiate the single case agreement. Prior authorization department initiated single case agreement and medical records faxed to [phone]. Pending authorization number: [id number]. Prior authorization department did mention after entering the [facility] tax ID and NPI that it was in-network? Previous [facility] patient accounting representative told nurse that it was NOT in network? Mixed information was given during phone conversation and multiple transfers. [facility] 12-06-2024 Instructions Meliton Fabian LPN - 12/06/2024 8:04 AM EDT SEQUENTIAL SCREENINGS The [facility] offers sequential screenings for women who are [...] It will require an appointment with our i&c technician. This is not an ultrasound performed [...] the above symptoms, contact our office at [phone] and ask to speak with a nurse. After hours, you can call doctors registry at [phone] OR call [facility] at [phone] and ask to have the doctor production assembler paged. If you consider this an emergency, dial 9-1-1 or go to your nearest emergency department. NEED HELP? Are you dealing with a violent or abusive relationship? Are you a victim of rape or sexual assult? Call [facility] ([place]) 24 hour Crisis Hotline: 475.804.6709 or 547-861-5152. MANUAL Your Guide to a Healthy manual is now on-line. Visit [email or web address] ncyGuide to download your free copy documented in this encounter [facility] 12-06-2024 Miscellaneous Notes MARVIN-S: Bryce Ramirez is [...] Chaya Fermin APRN.CNM documented in this encounter [facility] 12-06-2024 Progress note Formatting of t his [...] weeks with Growth US Chaya Fermin APRN.CNM [facility] 11-24-2024 Note Indication Evaluation of growth Maternal [...] 12 oz EFW by: Hadlock (HC-AC-FL) Extended Window Trimmer 5.5 mm Extremities / Bony Struc FL [...] M.D. [facility] 11-24-2024 Note HNO ID: [id number] Author: CHAYA FERMIN APRN.CNM Service: ? Author Type: Instrument Repairer Type: Progress Notes Filed: 11/24/2024 11:43 Note [...] record data and to send weekly via On[employer] -Growth US today, repeat at 36wk 9. Anemia during in third trimester -Continue Iron supplement, repeat CBC and iron studies today PTL precautions reviewed and when to call RTO in 2 weeks Chaya Fermin APRN.ELMIRA [facility] 11-24-2024 History of Present illness Narrative MARVIN-S: [...] record data and to send weekly via [employer] -Growth US today, repeat at 36wk 9. Anemia during in third trimester -Continue Iron supplement, repeat CBC and iron studies today PTL precautions reviewed and when to call RTO in 2 weeks Chaya Fermin APRN.CNM documented in this encounter [facility] 11-24-2024 Instructions Chaya Fermin APRN.CNM - 11/24/2024 11:08 AM EDT (Fingersticks) Date Fasting AM 1 hr PP Breakfast 1 hr PP Lunch 1 hr PP Dinner *Send log weekly via [employer] and bring to appointments SIGNS AND SYMPTOMS [...] the above symptoms, contact our office at [phone] and ask to speak with a nurse. After hours, you can call doctors registry at [phone] OR call [facility] at [phone] and ask to have the doctor production assembler paged. If you consider this an emergency, dial 4-9-9 or go to your nearest emergency department. NEED HELP? Are you dealing with a violent or abusive relationship? Are you a victim of rape or sexual assult? Call [facility] ([place]) 24 hour Crisis Hotline: 414.220.4312 or 527-314-8823. MANUAL Your Guide to a Healthy manual is now on-line. Visit [email or web address] ncyGuide to download your free copy documented in this encounter [facility] 11-08-2024 Progress note Formatting of t his [...] (GDM) in third trimester -Good control, completed critical care educator visit and feel comfortable with testing and diet. 9. Anemia during in third trimester -Continue Iron supplement, repeat CBC next visit PTL precautions reviewed and when to call RTO in 2 weeks with Growth US Chaya Fermin APRN.CNM [facility] 11-08-2024 Miscellaneous Notes MARVIN-S: Bryce Ramirez is [...] (GDM) in third trimester -Good control, completed critical care educator visit and feel comfortable with testing and diet. 9. Anemia during in third trimester -Continue Iron supplement, repeat CBC next visit PTL precautions reviewed and when to call RTO in 2 weeks with Growth US Chaya Fermin APRN.CNM documented in this encounter [facility] 11-08-2024 Note HNO ID: [id number] Author: CHAYA FERMIN APRN.CNM Service: ? Author Type: Instrument Repairer Type: Progress Notes Filed: 11/08/2024 08:29 Note Text: [facility] 11-08-2024 History of Present illness Narrative documented in this encounter [facility] 11-08-2024 Instructions Tejas Valdez MA - 11/08/2024 7:58 AM EDT SEQUENTIAL SCREENINGS The [facility] offers sequential screenings for women who are [...] It will require an appointment with our i&c technician. This is not an ultrasound performed [...] the above symptoms, contact our office at [phone] and ask to speak with a nurse. After hours, you can call doctors registry at [phone] OR call [facility] at [phone] and ask to have the doctor production assembler paged. If you consider this an emergency, dial 9-1-1 or go to your nearest emergency department. NEED HELP? Are you dealing with a violent or abusive relationship? Are you a victim of rape or sexual assult? Call [facility] ([place]) 24 hour Crisis Hotline: 698.984.6710 or 501-886-0551. MANUAL Your Guide to a Healthy manual is now on-line. Visit [email or web address] ncyGuide to download your free copy documented in this encounter [facility] 11-01-2024 Note HNO ID: [id number] Author: CIARRA HUBBARD RN Service: ? Author Type: Registered Nurse Type: Progress Notes Filed: 11/01/2024 10:47 Note Text: DIABETES SELF-MANAGEMENT EDUCATION AND SUPPORT Location: [facility] Type of visit: Virtual (with video) individual I have communicated my name and active licensure. The patient's identity and physical location were verified at the time of this visit. Either the patient or their legal patient accounting representative has been informed of the risks [...] Race/Ethnic Origin: White/ Does you culture or jain require any of the following: No cultural/christianity practices affecting DM Do you have problems [...] How do you manage stress? Watch [employer] [place] Do any of the following things get [...] Take 1 ta (more content not included)... [facility] 11-01-2024 History of Present illness Narrative DIABETES SELF-MANAGEMENT EDUCATION AND SUPPORT Location: [facility] Type of visit: Virtual (with video) individual I have communicated my name and active licensure. The patient's identity and physical location were verified at the time of this visit. Either the patient or their legal patient accounting representative has been informed of the risks [...] Race/Ethnic Origin: White/ Does you culture or jain require any of the following: No cultural/christianity practices affecting DM Do you have problems [...] How do you manage stress? Watch [employer] [place] Do any of the following things get [...] Take 1 tablet by mouth once daily. Xunysxxa-Qh-Xgd-Fe-FA tab Take 1 tablet by mouth once [...] continues to want a second opinion. First [facility] visit 11/16/24. Time Spent (Minutes): 45 This visit note will be communicated to the healthcare provider via access to shared medical record. SIGNATURE: Ciarra Hubbard RN,BSN,[facility] PATIENT NAME: Bryce Ramirez DATE: November 01, 2024 TIME: 9:01 AM PAGER: documented in this encounter [facility] 10-25-2024 Progress note Formatting of t his note might be different from the original. Anatomy ultrasound reviewed. No abnormalities identified. Follow up as clinically indicated. Please place copy in ob chart. Nelly Solorzano MD [facility] 10-25-2024 Miscellaneous Notes Anatomy ultrasound reviewed. No abnormalities identified. Follow up as clinically indicated. Please place copy in ob chart. Nelly Solorzano MD documented in this encounter [facility] 10-25-2024 Note Indication Evaluation of growth Maternal [...] 12 oz EFW by: Hadlock (HC-AC-FL) Extended Window Trimmer 4.7 mm Extremities / Bony Struc FL [...] RTO in 4 weeks Chaya Fermin APRN.CNM [facility] 10-25-2024 Miscellaneous Notes MARVIN-S: Bryce Ramirez is [...] Chaya Fermin APRN.CNM documented in this encounter [facility] 10-25-2024 Instructions Trudy Davis MA - 10/25/2024 11:20 AM EDT SEQUENTIAL SCREENINGS The [facility] offers sequential screenings for women who are [...] It will require an appointment with our i&c technician. This is not an ultrasound performed [...] the above symptoms, contact our office at [phone] and ask to speak with a nurse. After hours, you can call doctors registry at [phone] OR call [facility] at [phone] and ask to have the doctor production assembler paged. If you consider this an emergency, dial 9-1-9 or go to your nearest emergency department. NEED HELP? Are you dealing with a violent or abusive relationship? Are you a victim of rape or sexual assult? Call [facility] [place] ([facility] 24 hour Crisis Hotline: 539.634.1631 or 725-747-6428. MANUAL Your Guide to a Healthy manual is now on-line. Visit [email or web address] ncyGuide to download your free copy documented in this encounter [facility] 10-19-2024 Telephone encounter Note Prescription Refill Information [...] Bustos MA October 19, 2024 9:04 AM [facility] 10-19-2024 Miscellaneous Notes Prescription Refill Information The [...] 2024 9:04 AM documented in this encounter [facility] 09-27-2024 Progress note Formatting of t his [...] RTO in 4 weeks Chaya Fermin APRN.CNM [facility] 09-27-2024 Miscellaneous Notes MARVIN-S: Bryce Ramirez is [...] Chaya Fermin APRN.CNM documented in this encounter [facility] 09-27-2024 Instructions Tejas Valdez MA - 09/27/2024 11:18 AM EDT SEQUENTIAL SCREENINGS The [facility] offers sequential screenings for women who are [...] It will require an appointment with our i&c technician. This is not an ultrasound performed [...] the above symptoms, contact our office at [phone] and ask to speak with a nurse. After hours, you can call doctors registry at [phone] OR call [facility] at [phone] and ask to have the doctor production assembler paged. If you consider this an emergency, dial 9-1-1 or go to your nearest emergency department. NEED HELP? Are you dealing with a violent or abusive relationship? Are you a victim of rape or sexual assult? Call [facility] [place] ([place]) 24 hour Crisis Hotline: 884.481.4710 or 950-768-5371. MANUAL Your Guide to a Healthy manual is now on-line. Visit [email or web address] ncyGuide to download your free copy documented in this encounter [facility] 09-27-2024 Note HNO ID: [id number] Author: MOSES CARUSO MD Service: ? Author Type: Physician Type: Progress Notes Filed: 09/27/2024 10:08 Note Text: /Pediatric Cardiology Consultation Chaya Fermin APRN TECHNICAL STENOGRAPHER NAME: Bryce Ramirez Date of : 1990 Date of Visit: September 27, 2024 Estimated Date of Delivery: 01/15/25 Dear Chaya Fermin, I had the pleasure of seeing your patient, Ms. Bryce Ramirez, for a echocardiogram at the [facility] in [place]. As you know, she is a 34 [...] the . She plans to deliver in [place]. A full echocardiogram was performed and reviewed [...] at any time. Sincerely, Moses Caruso MD Automatic Profile Sander Operator of Pediatrics Division of Pediatric Cardiology [facility] During this patient visit I have spent approximately 40 minutes out of 45 in coordinating/counseling about the above findings and limitations of echocardiogram. [facility] 09-27-2024 History of Present illness Narrative /Pediatric Cardiology Consultation Chaya Fermin APRN TECHNICAL STENOGRAPHER NAME: Bryce Ramirez Date of : 1990 Date of Visit: September 27, 2024 Estimated Date of Delivery: 01/15/25 Dear Chaya Fermin, I had the pleasure of seeing your patient, Ms. Bryce Ramirez, for a echocardiogram at the [facility] in [place]. As you know, she is a 34 [...] the . She plans to deliver in [place]. A full echocardiogram was performed and reviewed [...] at any time. Sincerely, Moses Caruso MD Automatic Profile Sander Operator of Pediatrics Division of Pediatric Cardiology [facility] at [facility] During this patient visit I have spent approximately 40 minutes out of 45 in coordinating/counseling about the above findings and limitations of echocardiogram. documented in this encounter [facility] 09-15-2024 Telephone encounter Note I called patient because she had not viewed MyChart message. Discussed importance of us getting her medical records and informed her that medical release form was attached to previous MyChart message that she hasn't reviewed. Patient states she will contact previous provider and check her MyChart message [facility] 09-15-2024 Miscellaneous Notes I called patient because [...] not included. Chaya Fermin APRN.CNM P Wstr [employer]ruit Harvest Machine Operator Pool Do we still not have her medical records? I don't see them scanned or her labs uploaded into the chart for her record. Am I missing them? Chaya Burciaga APRN.CNM documented in this encounter [facility] 09-14-2024 Telephone encounter Note Left vm to schedule echo [phone] opt 2 [facility] 09-14-2024 Miscellaneous Notes Left vm to schedule echo [phone] opt 2 documented in this encounter [facility] 09-07-2024 Telephone encounter Note Left message for Pt informing her mychart message would be sent and if she had questions/concerns to call office. Kandy Rivers RN [facility] 09-07-2024 Telephone encounter Note Images from the original note were not included. Chaya Fermin APRN.CNM P Wstr Ob-Fruit Harvest Machine Operator Pool Do we still not have her medical records? I don't see them scanned or her labs uploaded into the chart for her record. Am I missing them? Chaya Burciaga APRN.CNM [facility] 08-30-2024 Progress note Formatting of t his note might be different from the original. MARVIN- [facility] 08-30-2024 Miscellaneous Notes MARVIN- documented in this encounter [facility] 08-30-2024 Note HNO ID: [id number] Author: CHAYA FERMIN APRN.CNM Service: ? Author Type: Instrument Repairer Type: Progress Notes Filed: 09/06/2024 16:52 Note [...] RTO in 4 weeks Chaya Fermin APRN.CNM [facility] 08-30-2024 History of Present illness Narrative MARVIN-S: [...] Chaya Fermin APRN.CNM documented in this encounter [facility] 08-30-2024 Instructions Chaya Fermin APRN.CNM - 08/30/2024 9:04 AM EDT Please call [phone], select option 2, to schedule Echocardiogram SIGNS [...] the above symptoms, contact our office at [phone] and ask to speak with a nurse. After hours, you can call doctors registry at [phone] OR call [facility] at [phone] and ask to have the doctor production assembler paged. If you consider this an emergency, dial 9-1- or go to your nearest emergency department. NEED HELP? Are you dealing with a violent or abusive relationship? Are you a victim of rape or sexual assult? Call [facility] ([place]) 24 hour Crisis Hotline: 822.281.6151 or 957-271-2382. MANUAL Your Guide to a Healthy manual is now on-line. Visit [email or web address] ncyGuide to download your free copy documented in this encounter [facility] 08-03-2024 Instructions Laine Mccollum APRN.CNP - 08/03/2024 [...] medication overuse headache. documented in this encounter [facility] 08-03-2024 History of Present illness Narrative [facility] [place] New Patient Evaluation This visit was conducted via virtual platform. I have communicated my name and active licensure. The patient's identity and physical location were verified at the time of this visit. Either the patient or their legal patient accounting representative has been informed of the risks [...] she gets a migraine she has to machine puller and laster as she cannot see. Would usually take [...] (VITAMIN D2 ORAL) Take by mouth. rizatriptan (MAXALT-TOBACCO WAREHOUSE AGENT) 10 mg disintegrating tablet Take 1 tablet [...] per month to prevent medication overuse headache. [facility] on 08/03/24 MRI BRAIN WO IVCON CONSULT TO HEADACHE CLINIC Laine Mccollum APRN.CNP I spent a total of 56 minutes on the date of the service which included preparing to see the patient, [id number] patient care, completing clinical documentation, obtaining and/or reviewing separately obtained history, performing a medically appropriate examination, counseling and educating the patient/family/caregiver, and ordering medications, tests, or procedures. Portions of this note were created with electronic dictation and errors in spelling, syntax, and meaning may have occurred. documented in this encounter [facility] 08-03-2024 Note HNO ID: [id number] Author: LAINE MCCOLLUM APRN.CNP Service: ? Author Type: Nurse Practitioner Type: Progress Notes Filed: 08/03/2024 16:32 Note Text: [facility] [place] New Patient Evaluation This visit was conducted via virtual platform. I have communicated my name and active licensure. The patient's identity and physical location were verified at the time of this visit. Either the patient or their legal patient accounting representative has been informed of the risks [...] she gets a migraine she has to machine puller and laster as she cannot see. Would usually take [...] wait until through (more content not included)... [facility] 08-02-2024 Progress note Formatting of t his [...] RTO in 4 wk Chaya Fermin APRN.CNM [facility] 08-02-2024 Miscellaneous Notes MARVIN-S: Bryce Ramirez is [...] Chaya Fermin APRN.CNM documented in this encounter [facility] 08-02-2024 Instructions Tejas Valdez MA - 08/02/2024 12:56 PM EDT SEQUENTIAL SCREENINGS The [facility] offers sequential screenings for women who are [...] It will require an appointment with our i&c technician. This is not an ultrasound performed [...] the above symptoms, contact our office at [phone] and ask to speak with a nurse. After hours, you can call doctors registry at [phone] OR call [facility] at [phone] and ask to have the doctor production assembler paged. If you consider this an emergency, dial 9-1-8 or go to your nearest emergency department. NEED HELP? Are you dealing with a violent or abusive relationship? Are you a victim of rape or sexual assult? Call [facility] ([place]) 24 hour Crisis Hotline: 623.108.1958 or 438-992-1252. MANUAL Your Guide to a Healthy manual is now on-line. Visit [email or web address] ncyGuide to download your free copy documented in this encounter [facility] 07-26-2024 Telephone encounter Note Called pt to ask what medication was needed refilled.Asked pt to return call. [facility] 07-26-2024 Miscellaneous Notes Called pt to ask [...] 2024 4:17 PM documented in this encounter [facility] 07-26-2024 Telephone encounter Note Nothing pended... Radha Brown APRN.TECHNICAL STENOGRAPHER [facility] Work Phone: 07-22-2024 Telephone encounter Note Prescription [...] Marroquin LPN July 22, 2024 4:17 PM [facility] 07-12-2024 Progress note Formatting of [...] RTO in 4 weeks Chaya Fermin APRN.CNM [facility] 07-12-2024 Miscellaneous Notes MARVIN-S: Bryce [...] Chaya Fermin APRN.CNM documented in this encounter [facility] 07-12-2024 Instructions Tejas Valdez MA - 07/12/2024 9:53 AM EST SEQUENTIAL SCREENINGS The [facility] offers sequential screenings for women who are [...] It will require an appointment with our i&c technician. This is not an ultrasound performed [...] the above symptoms, contact our office at [phone] and ask to speak with a nurse. After hours, you can call doctors registry at [phone] OR call [facility] at [phone] and ask to have the doctor production assembler paged. If you consider this an emergency, dial 4-- or go to your nearest emergency department. NEED HELP? Are you dealing with a violent or abusive relationship? Are you a victim of rape or sexual assult? Call [facility] ([place]) 24 hour Crisis Hotline: 198.633.1043 or 316-252-6102. MANUAL Your Guide to a Healthy manual is now on-line. Visit [email or web address] ncyGuide to download your free copy documented in this encounter [facility] 07-07-2024 Note HNO ID: [id number] Author: CHAYA FERMIN APRN.CNM Service: ? Author Type: Instrument Repairer Type: Progress Notes Filed: 07/16/2024 17:12 Note Text: Machine Binding Folder offered: Patient declines. INITIAL OB ASSESSMENT HPI: [...] Status: Partner: Name: Matti Age: 35 Occupation: [employer] Gender: Male PAST MEDICAL HISTORY Diagnosis Date [...] (VITAMIN D2 ORAL) Take by mouth. rizatriptan (MAXALT-TOBACCO WAREHOUSE AGENT) 10 mg disintegrating tablet Take 1 tablet [...] day 90 capsule (more content not included)... [facility] 07-07-2024 History of Present illness Narrative Machine Binding Folder offered: Patient declines. INITIAL OB ASSESSMENT HPI: [...] Status: Partner: Name: Matti Age: 35 Occupation: Ecology Professor Gender: Male PAST MEDICAL HISTORY Diagnosis Date [...] (VITAMIN D2 ORAL) Take by mouth. rizatriptan (MAXALT-TOBACCO WAREHOUSE AGENT) 10 mg disintegrating tablet Take 1 tablet [...] discussed with the Patient or Patient's Authorized Sub Master. As applicable, any other physician, advance practice provider, medical student, or other health professional student that will be observing or involved in the sensitive examination for educational or training purposes was discussed with the Patient or Authorized Sub Master. The Patient or Authorized Sub Master has agreed to proceed with the sensitive [...] Chaya Fermin APRN.CNM documented in this encounter [facility] 07-07-2024 Instructions Heather Steward MA - 07/07/2024 1:00 PM EST Please select the following link to access the [facility] Your Guide to a Healthy . [email or web address] documented in this encounter [facility] 01-01-2024 History of Present illness Narrative 1. [...] 2024 10:31 AM documented in this encounter [facility] 01-01-2024 Instructions Perla Bailey, OD - 01/01/2024 8:59 AM EDT Use Systane Complete or Refresh Relieva (preservative free) 2-3 times daily Use Systane, Refresh or Blink gel nightly before bed in both eyes documented in this encounter [facility] 04-30-2023 History of Present illness Narrative Pt LWBS d/t family emergency documented in this encounter [facility] 04-29-2023 History of Present illness Narrative This is an [facility] eVisit note for Bryce Griffinit/Questionnaire reviewed The chief complaint for the visit - Patient presents with: Ear Problem Sinus Problem Recommendations/Treatment plan - See My Chart Message to patient Neda Carr APRN.TECHNICAL STENOGRAPHER I spent <5 minutes on this eVisit in chart review and coordination of care. documented in this encounter [facility] 01-09-2023 Instructions Jasmin Boyd APRN.FRANKLYN - 01/09/2023 7:38 AM EDT Get fasting labs completed today Increase Prozac 30 mg daily. Continue to take all medication as prescribed. Continue to eat a well balanced diet and get some form of exercise. Follow up in 1 month for medication check, may be a virtual or phone visit. Health Promotion: - Eat healthy -- go to [email or web address] to get started - Have a yearly [...] - Wear sunscreen documented in this encounter [facility] 01-09-2023 History of Present illness Narrative This is a 32 year old female who presents today with: Patient presents with: Physical: for school HISTORY OF PRESENT ILLNESS: Bryce Ramirez is a 32 year old female. Patient presents with: Physical: for school Patient of Dr. Pugh here in the office for wellness exam. School: Will need TB test. Will be going to [facility] for massage therapy. Diet: Eating well balanced [...] 2 capsules by mouth once daily. rizatriptan (MAXALT-TOBACCO WAREHOUSE AGENT) 10 mg disintegrating tablet Take 1 tablet [...] Onset Hypertension Mother Lipids Mother Heart Mother PR at age 50 Hypertension Father Lipids Father No Known Problems Brother Hypertension Maternal Grandmother Lipids Maternal Grandmother Heart Maternal Grandfather 40 PR age 40 Cancer Paternal Grandmother breast Hypertension [...] diet of 1000 mg/day for under 50, 0114-8557 mg/day for 50+ - Discussed need and [...] APRN.FRANKLYN This note was partially generated using [employer] voice recognition system. Note was reviewed for accuracy. There may be minor misspellings or grammar miscues with [employer] voice recognition. documented in this encounter [facility] 10-29-2022 Miscellaneous Notes Patient has been identified [...] Mercedes Walters MA documented in this encounter [facility] 10-03-2022 Miscellaneous Notes Patient active MyChart. Patient notified via [employer] message. Michelle Singh MA Please inform patient that her vitamin D is low on her labs, needs to be taking at least 0497-3227 international unit(s) a day of vitamin D3 with a meal. Also her cholesterol is high. Needs to cut back on fried/fast/fatty foods and red meats in her diet. Increase lean proteins and green vegetables. Ze Pugh DO documented in this encounter [facility] 09-30-2022 History of Present illness Narrative CC: [...] 1 capsule by mouth once daily. rizatriptan (MAXALT-TOBACCO WAREHOUSE AGENT) 10 mg disintegrating tablet Take 1 tablet [...] See patient instructions. Ze Pugh DO [address] [place] [address] documented in this encounter [facility] 08-16-2022 History of Present illness Narrative Radiology [...] 2022 7:34 PM documented in this encounter [facility] 06-08-2022 Miscellaneous Notes Pt notified via [employer] that Rx has been sent into pharmacy. [...] you. Kelsie Givens documented in this encounter [facility] 05-28-2022 History of Present illness Narrative CC: Bryce Ramirez is a 31 year old female who presents to the office for follow up HPI: Previously at [facility] on 04/26/22 Mood, difficulty recently with feeling [...] 1 capsule by mouth once daily. rizatriptan (MAXALT-TOBACCO WAREHOUSE AGENT) 10 mg disintegrating tablet Take 1 tablet [...] See patient instructions. Ze Pugh DO [address] [place] [address] documented in this encounter [facility] 05-28-2022 Instructions Ze Pugh DO - 05/28/2022 4:37 PM EST Magnesium glycinate or gluconate or citrate 400-500 mg in the evening for sleep documented in this encounter [facility] 05-14-2022 Instructions Shyanne Christie APRN.CNP - 05/14/2022 [...] pain society ([email or web address]) documented in this encounter [facility] 05-14-2022 History of Present illness Narrative CONSULT: [...] - pelvis while . 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 Was pulled and felt tear. Went to [...] Has been going on for 2 years. [place] - Deep and positional. Feels like he's [...] tried: Depo Provera, Metformin, Progesterone only pills [place]: sexually active SFSI6: 16 (below 19 indicates Female Sexual Dysfunction) Urinary Symptoms: none PUF: 13 (20+ indicates probable Interstitial Cystitis) GI Symptoms: nausea and frequent diarrhea Diagnoses related to pelvic pain: Diagnoses related to pelvic pain: Other medical conditions PCOS Interventions tried for pain: lifestyle modification ( exercise, sleep hygiene, smoking cessation) [id number]- I used to exercise daily and eat [...] DATE OF EXAM: Mar 04 2022 2:16PM [facility] 1060 - US FEMALE PELVIS TRANSVAG [...] DATE OF EXAM: Jun 21 2021 9:27AM [facility] 0530 - CT ABD/PEL W IVCON [...] consolidations. There is a small hiatal hernia. Cup Machine Operator (topogram) images: No additional findings. DATE OF [...] TABLET BY MOUTH 3 TIMES DAILY rizatriptan (MAXALT-TOBACCO WAREHOUSE AGENT) 10 mg disintegrating tablet Take 1 tablet by mouth as needed. May repeat in 2 hours if needed No current facility-administered medications on file prior to visit. ALLERGIES No Known Allergies FAMILY HISTORY Problem Relation Age of Onset Hypertension Mother Lipids Mother Heart Mother PR at age 50 Hypertension Father Lipids Father No Known Problems Brother Hypertension Maternal Grandmother Lipids Maternal Grandmother Heart Maternal Grandfather 40 PR age 40 Cancer Paternal Grandmother breast Hypertension Paternal Grandfather Lipids Paternal Grandfather No Known Problems Daughter ROS OBJECTIVE LMP 01/30/2022 PHYSICAL EXAMINATION: Physical Exam Vitals and nursing note reviewed. Machine Binding Folder present: patient declined. Constitutional: Appearance: Normal appearance. [...] 4 - Moderate documented in this encounter [facility] 04-26-2022 History of Present illness Narrative CC: [...] Onset Hypertension Mother Lipids Mother Heart Mother PR at age 50 Hypertension Father Lipids Father No Known Problems Brother Hypertension Maternal Grandmother Lipids Maternal Grandmother Heart Maternal Grandfather 40 PR age 40 Cancer Paternal Grandmother breast Hypertension Paternal Grandfather Lipids Paternal Grandfather No Known Problems Daughter Current Outpatient prescriptions: omeprazole (PRILOSEC) 20 mg capsule Take 2 capsules by mouth once daily. metFORMIN ER (GLUCOPHAGE XR) 500 mg 24 hr tablet TAKE 1 TABLET BY MOUTH 3 TIMES DAILY rizatriptan (MAXALT-TOBACCO WAREHOUSE AGENT) 10 mg disintegrating tablet Take 1 tablet [...] with more than 50% of the total [id number] time of the visit in counseling / coordination of care. To ER if develops chest pain, shortness of breath, or severe worsening of symptoms. Discussed risks, benefits, alternatives, and potential side effects of medications. Patient expressed understanding and agreed with the plan. Ze Pugh DO [address] [place] [address] documented in this encounter [facility] 03-26-2022 Miscellaneous Notes 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 for appointment with Shyanne Christie CNP, APRN on 05/14 @ 9:30. Laxmi Darden RN documented in this encounter [facility] 03-12-2022 Instructions Chaya Fermin APRN.CNM - 03/12/2022 10:43 AM EDT You have been referred to the Chronic Pelvic Pain Program. Prior to your appointment there is a questionnaire you will need to complete, please call for the appointment. documented in this encounter [facility] 03-12-2022 History of Present illness Narrative DISTANCE [...] ICD10: R10.2 (primary diagnosis) - CONSULT TO MOBILE UNIT ASSISTANT PELVIC PAIN - Reviewed option for OCP, [...] which included preparing to see the patient, [id number] patient care, completing clinical documentation, obtaining and/or reviewing separately obtained history, performing a medically appropriate examination, and counseling and educating the patient/family/caregiver. documented in this encounter [facility] 02-28-2022 History of Present illness Narrative This note was created using panOpenriter. 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 Wears contacts. Is going camping this weekend and doesn't have glasses. OTC not used. No antibiotic use in the last 60 days. ALLERGIES No Known Allergies Family History Reviewed Including Cardiac Diseases, Psychiatric Diseases, & Substance Abuse Problem: Heart Relation: Maternal Grandfather Age of Onset: 40 Comment: [place] age 40 Problem: Hypertension Relation: Mother Age of Onset: (Not Specified) Problem: Lipids Relation: Mother Age of Onset: (Not Specified) Problem: Heart Relation: Mother Age of Onset: (Not Specified) Comment: [place] at age 50 Problem: Hypertension Relation: Father [...] which included preparing to see the patient, [id number] patient care, completing clinical documentation, obtaining and/or reviewing separately obtained history, performing a medically appropriate examination, counseling and educating the patient/family/caregiver, and ordering medications, tests, or procedures. documented in this encounter [facility] 02-28-2022 Instructions Benita Wynn APRN.CNP - 02/28/2022 [...] with warning symptoms. documented in this encounter [facility] 11-03-2021 Miscellaneous Notes Patient has been identified [...] Bindu Taylor LPN documented in this encounter [facility] 10-05-2021 Miscellaneous Notes Patient phones requesting refills as follows: Pending Prescriptions Disp Refills RIZATRIPTAN 10 MG DISINTEGRATING TABLET 9 tablet 3 Sig: Take 1 tablet by mouth as needed. May repeat in 2 hours if needed ASHLY: No GISELA 03/19/21 NOV no upcoming appt Please review and advise. Alfredo Andrew LPN documented in this encounter [facility] 10-03-2021 Miscellaneous Notes Pt was seen by Melia CASILLAS 03/19/21. Mckenna Cedeno LPN I haven't seen this patient since 2013 Ze Pugh DO Pt reports pain with urination & urinary frequency. Has had UTIs in that past & thinks this is a uti. Pt going to UC today. Mckenna Cedeno LPN documented in this encounter [facility] 09-13-2021 History of Present illness Narrative This is an Express Care eVisit note for Bryce Gross/Questionnaire reviewed The chief complaint for the visit - Patient presents with: Cough Recommendations/Treatment plan - referral <5 mins to complete Roxana De Jesus APRN.TECHNICAL STENOGRAPHER documented in this encounter [facility] 08-31-2021 History of Present illness Narrative 1. Myopia, bilateral 2. Dry eye syndrome of bilateral lacrimal glands Dispensed new trials Patient to let me know if she prefers Clariti 1-day or Acuvue moist 1 day. Perla Bailey, OD August 31, 2021 2:58 PM documented in this encounter [facility] 08-31-2021 History of Present illness Narrative This [...] Time spend was 5 minutes. Brayan Rossi APRN.TECHNICAL STENOGRAPHER documented in this encounter [facility] 08-17-2021 Miscellaneous Notes Pharmacy calls in requesting the following refill(s): Pending Prescriptions Disp Refills OMEPRAZOLE 20 MG CAPSULE,DELAYED RELEASE 60 capsule 2 Sig: TAKE 2 CAPSULES BY MOUTH ONCE DAILY ASHLY: Yes documented in this encounter [facility] 02-11-2019 History of Past i llness Narrative [...] of this encounter (statuses as of 08/22/2021) [facility] History of Past illness Narrative* Problem Noted [...] of this encounter (statuses as of 08/31/2021) [facility] History of Past illness Narrative* Problem Noted [...] of this encounter (statuses as of 08/31/2021) [facility] History of Past illness Narrative* Problem Noted [...] of this encounter (statuses as of 09/13/2021) [facility] History of Past illness Narrative* Problem Noted [...] of this encounter (statuses as of 10/03/2021) [facility] History of Past illness Narrative* Problem Noted [...] of this encounter (statuses as of 10/05/2021) [facility] History of Past illness Narrative* Problem Noted [...] of this encounter (statuses as of 10/25/2021) [facility] History of Past illness Narrative* Problem Noted [...] of this encounter (statuses as of 11/05/2021) [facility] History of Past illness Narrative* Problem Noted [...] of this encounter (statuses as of 12/10/2021) [facility] History of Past illness Narrative* Problem Noted [...] of this encounter (statuses as of 12/10/2021) [facility] History of Past illness Narrative* Problem Noted [...] of this encounter (statuses as of 02/28/2022) [facility] History of Past illness Narrative* Problem Noted [...] of this encounter (statuses as of 03/13/2022) [facility] History of Past illness Narrative* Problem Noted [...] of this encounter (statuses as of 03/26/2022) [facility] History of Past illness Narrative* Problem Noted [...] of this encounter (statuses as of 04/29/2022) [facility] History of Past illness Narrative* Problem Noted [...] of this encounter (statuses as of 05/14/2022) [facility] History of Past illness Narrative* Problem Noted [...] of this encounter (statuses as of 05/30/2022) [facility] History of Past illness Narrative* Problem Noted [...] of this encounter (statuses as of 06/08/2022) [facility] History of Past illness Narrative* Problem Noted [...] of this encounter (statuses as of 08/17/2022) [facility] History of Past illness Narrative* Problem Noted [...] of this encounter (statuses as of 09/30/2022) [facility] History of Past illness Narrative* Problem Noted [...] of this encounter (statuses as of 10/03/2022) [facility] History of Past illness Narrative* Problem Noted [...] of this encounter (statuses as of 10/30/2022) [facility] History of Past illness Narrative* Problem Noted [...] of this encounter (statuses as of 01/09/2023) [facility] History of Past illness Narrative* Problem Noted [...] of this encounter (statuses as of 02/05/2023) [facility] History of Past illness Narrative* Problem Noted [...] of this encounter (statuses as of 04/30/2023) [facility] History of Past illness Narrative* Problem Noted [...] of this encounter (statuses as of 05/01/2023) [facility] Diagnosis Acute rhinosinusitis- Primary Acute sinusitis, unspecified [facility] Diagnosis Myopia, bilateral- Primary Myopia Dry eye syndrome of bilateral lacrimal glands Tear film insufficiency, unspecified [facility] Diagnosis Cough- Primary [facility] Diagnosis History of migraine Personal history of other disorders of nervous system and sense organs [facility] History of PCOS Personal history of other genital system and obstetric disorders [facility] Diagnosis Corneal irritation of right eye- Primary [facility] Diagnosis Pelvic pain in female- Primary Unspecified symptom associated with female genital organs Dysmenorrhea [facility] Diagnosis Anxiety and depression- Primary Dysthymic disorder [facility] Diagnosis Chronic pelvic pain in female- Primary Unspecified symptom associated with female genital organs Pelvic pain in female Unspecified symptom associated with female genital organs Primary dysmenorrhea Dysmenorrhea Pelvic and perineal pain Unspecified symptom associated with female genital organs High-tone pelvic floor dysfunction Other specified disorders of female genital organs Deep dyspareunia Stress incontinence, female Female stress incontinence [facility] Diagnosis Anxiety and depression- Primary Dysthymic disorder Situational insomnia Transient disorder of initiating or maintaining sleep Other migraine without status migrainosus, not intractable [facility] Diagnosis Primary dysmenorrhea Dysmenorrhea Pelvic and perineal pain Unspecified symptom associated with female genital organs Deep dyspareunia [facility] Diagnosis Anxiety and depression- Primary Dysthymic disorder Situational insomnia Transient disorder of initiating or maintaining sleep Other migraine without status migrainosus, not intractable Fatigue, unspecified type PCOS (polycystic ovarian syndrome) Polycystic ovaries Well adult exam Routine general medical examination at a health care facility [facility] Diagnosis Anxiety and depression Dysthymic disorder [facility] Diagnosis Wellness examination- Primary Anxiety and depression Dysthymic disorder PCOS (polycystic ovarian syndrome) Polycystic ovaries Other migraine without status migrainosus, not intractable Situational insomnia Transient disorder of initiating or maintaining sleep Vitamin D deficiency Unspecified vitamin D deficiency Hyperlipidemia LDL goal <100 Other and unspecified hyperlipidemia Screening-pulmonary TB Screening examination for pulmonary tuberculosis [facility] Diagnosis Treatment not available- Primary Procedure not carried out for other reasons [facility] Diagnosis Procedure not carried out- Primary Procedure not carried out for other reasons [facility] Diagnosis Myopia, bilateral- Primary Myopia Regular astigmatism of both eyes Regular astigmatism Dry eye syndrome of bilateral lacrimal glands Tear film insufficiency, unspecified [facility] Diagnosis Encounter for screening for malformation using ultrasound- Primary 13 weeks gestation of state, incidental [facility] Diagnosis Supervision of other high risk , antepartum- Primary 13 weeks gestation of state, incidental Anxiety and depression Dysthymic disorder resulting from in vitro fertilization in first trimester Sur[place] state, incidental History of PCOS Personal history of other genital system and obstetric disorders [facility] Diagnosis Supervision of other high risk [...] of state, incidental [facility] Diagnosis Supervision of other high risk pregnancies, second trimester- Primary 16 weeks gestation of state, incidental [place] state, incidental Anxiety and depression Dysthymic disorder History of PCOS Personal history of other genital system and obstetric disorders Exposure to genital herpes Contact with or exposure to other viral diseases resulting from in vitro fertilization in first trimester Headaches [facility]* Diagnosis Migraine without aura and without status migrainosus, not intractable- Primary Migraine without aura, without mention of intractable migraine without mention of status migrainosus [facility] Diagnosis Encounter for anatomic survey (HCC)- Primary Encounter for anatomic survey 20 weeks gestation of (HCC) state, incidental resulting from in vitro fertilization in second trimester ([facility]) [facility] Diagnosis Supervision of other high risk pregnancies, second trimester (HCC)- Primary Anxiety and depression Dysthymic disorder Surrogate (HCC) state, incidental 20 weeks gestation of ([facility]) state, incidental 12 weeks gestation of ([facility]) state, incidental [facility] Diagnosis Supervision of high risk in third trimester ([facility])- Primary Unspecified high-risk Obesity affecting in third trimester, unspecified obesity type ([facility]) [facility] Diagnosis Surrogate (HCC)- Primary state, incidental Maternal care for other (suspected) abnormality and damage, cardiac anomalies, not applicable or unspecified ([facility]) [facility] Diagnosis Supervision of other high risk pregnancies, second trimester (HCC)- Primary Sur[place] (HCC) state, incidental Anxiety and depression Dysthymic disorder 24 weeks gestation of ([facility]) state, incidental Screening for diabetes mellitus [facility] Diagnosis Supervision of other high risk pregnancies, second trimester (HCC) 12 weeks gestation of ([facility]) state, incidental [facility] Diagnosis Encounter for ultrasound to check growth ([facility])- Primary Encounter for routine screening for malformation using ultrasonics Obesity affecting in third trimester, unspecified obesity type ([facility]) 28 weeks gestation of ([facility]) state, incidental [facility] Diagnosis Diet controlled gestational diabetes mellitus (GDM) in third trimester ([facility]) [facility] Diagnosis Supervision of high risk in third trimester (HCC)- Primary Unspecified high-risk 30 weeks gestation of ([facility]) state, incidental Diet controlled gestational diabetes mellitus (GDM) in third trimester (HCC) Anemia during in third trimester (HCC) resulting from in vitro fertilization in third trimester ([facility]) [facility] Diagnosis resulting from in vitro fertilization in third trimester ([facility])- Primary Supervision of high risk in third trimester ([facility]) Unspecified high-risk 28 weeks gestation of ([facility]) state, incidental [facility] Diagnosis Supervision of high risk in third trimester ([facility])- Primary Unspecified high-risk Anemia during in third trimester ([facility]) Diet controlled gestational diabetes mellitus (GDM) in third trimester ([facility]) 32 weeks gestation of ([facility]) state, incidental [facility] Diagnosis Encounter for ultrasound to check growth ([facility])- Primary Encounter for routine screening for malformation using ultrasonics Obesity affecting in third trimester, unspecified obesity type ([facility]) 32 weeks gestation of ([facility]) state, incidental [facility] Diagnosis resulting from in vitro fertilization in first trimester ([facility])- Primary [facility] Diagnosis Supervision of high risk in third trimester ([facility])- Primary Unspecified high-risk 34 weeks gestation of ([facility]) state, incidental Abnormal glucose in , antepartum ([facility]) Abnormal maternal glucose tolerance, antepartum Anemia during in third trimester ([facility]) Rubella non-immune status, antepartum ([facility]) Other specified complication, antepartum PCOS (polycystic ovarian syndrome) Polycystic ovaries Surrogate ([facility]) state, incidental resulting from in vitro fertilization in first trimester ([facility]) [facility] Diagnosis Anemia during in third trimester ([facility])- Primary Abnormal glucose in , antepartum ([facility]) Abnormal maternal glucose tolerance, antepartum [facility] Diagnosis Diet controlled gestational diabetes mellitus (GDM) in third trimester ([facility])- Primary [facility] Diagnosis resulting from in vitro fertilization in first trimester ([facility])- Primary Obesity affecting in third trimester, unspecified obesity type ([facility]) Diet controlled gestational diabetes mellitus (GDM) in third trimester ([facility]) [facility] Diagnosis Supervision of high risk in [...] from in vitro fertilization in first trimester ([facility]) [facility] Diagnosis 38 weeks gestation of (HCC)- Primary state, incidental Group beta Strep positive Supervision of high risk in third trimester (HCC) Unspecified high-risk Surrogate (HCC) state, incidental Diet controlled gestational diabetes mellitus (GDM) in third trimester ([facility]) [facility] Diagnostic Procedure Only (Routine) - Closed Specialty Diagnoses / Procedures Referred By Kevan ocasio Referred To Contact [facility] Diagnoses Primary dysmenorrhea Pelvic and perineal pain Deep dyspareunia Procedures MRI FEMALE PELVIS WO/W IVCON MRI PELVIS W/O & W/CONTRAST MATERIAL Shyanne Christie APRN.CNP [address] [place] [address] Mr Imaging Referral ID Status Reason Start Date Expiration Date V isits Requested Visits Authorized [id number] Closed Auto-Generate d Referral 07/28/2022 08/27/2022 1 1 [facility] Medications Administered Section Inactive Administered Medications - [...] Pelvic pain in female Procedures CONSULT TO MOBILE UNIT ASSISTANT PELVIC PAIN OFFICE/OUTPATIENT NEW [facility] MDM 60-74 MINUTES Chaya Fermin APRN.CNM [address] [place] [address] Referral ID Status Reason Start Date Expiration Date Visits Requested Visits Authorized [id number] Authorized PCP Requested Referral Auto-Generate d Referral 2 03/12/2023 1 1 Specialty Diagnoses / Procedures Referred By Kevan t Referred To Contact [facility] Diagnoses Primary dysmenorrhea High-tone pelvic floor dysfunction Deep dyspareunia Chronic pelvic pain in female Stress incontinence, female Procedures CONSULT TO PHYSICAL THERAPY PHYSICAL THERAPY EVALUATION HIGH COMPLEX 45 MINS Shyanne Christie, TAB.TECHNICAL STENOGRAPHER [address] [place] [address] [facility] [place] [address] [place] [address] Referral ID Status Reason Start Date Expiration Date Visits Requested Visits Authorized [id number] Pending Review Auto-Generat ed Referral 2 05/14/2023 1 1 Specialty Diagnoses / Procedures Referred By Kevan ocasio Referred To Contact MR IM[facility]ING Diagnoses Primary dysmenorrhea Pelvic and perineal pain Deep dyspareunia Procedures MRI FEMALE PELVIS WO/W IVCON MRI PELVIS W/O & W/CONTRAST MATERIAL Shyanne Christie, LITIGATION EXAMINER.TECHNICAL STENOGRAPHER [address] [place] [address] Mr Imaging Referral ID Status Reason Start Date Expiration Date Visits Requested Visits Authorized [id number] Pending Review Auto-Generat ed Referral 2 06/13/2023 [...] or prosecute any alcohol or drug abuse patient.[facility] the event this information is protected by the Federal Confidentiality of Alcohol and Drug Abuse Patient Records regulations: The Federal rules restrict any use of the information to criminally investigate or prosecute any alcohol or drug abuse patient.[facility] the event this information is protected by the Federal Confidentiality of Alcohol and Drug Abuse Patient Records regulations: The Federal rules restrict any use of the information to criminally investigate or prosecute any alcohol or drug abuse patient.[facility] the event this information is protected by the Federal Confidentiality of Alcohol and Drug Abuse Patient Records regulations: The Federal rules restrict any use of the information to criminally investigate or prosecute any alcohol or drug abuse patient.[facility] the event this information is protected by the Federal Confidentiality of Alcohol and Drug Abuse Patient Records regulations: The Federal rules restrict any use of the information to criminally investigate or prosecute any alcohol or drug abuse patient.[facility] the event this information is protected by the Federal Confidentiality of Alcohol and Drug Abuse Patient Records regulations: The Federal rules restrict any use of the information to criminally investigate or prosecute any alcohol or drug abuse patient.[facility] AndersonIn the event this information is protected by the Federal Confidentiality of Alcohol and Drug Abuse Patient Records regulations: The Federal rules restrict any use of the information to criminally investigate or prosecute any alcohol or drug abuse patient.[facility] AndersonIn the event this information is protected by the Federal Confidentiality of Alcohol and Drug Abuse Patient Records regulations: The Federal rules restrict any use of the information to criminally investigate or prosecute any alcohol or drug abuse patient.[facility] AndersonIn the event this information is protected by the Federal Confidentiality of Alcohol and Drug Abuse Patient Records regulations: The Federal rules restrict any use of the information to criminally investigate or prosecute any alcohol or drug abuse patient.[facility] AndersonIn the event this information is protected by the Federal Confidentiality of Alcohol and Drug Abuse Patient Records regulations: The Federal rules restrict any use of the information to criminally investigate or prosecute any alcohol or drug abuse patient.[facility] AndersonIn the event this information is protected by the Federal Confidentiality of Alcohol and Drug Abuse Patient Records regulations: The Federal rules restrict any use of the information to criminally investigate or prosecute any alcohol or drug abuse patient.[facility] AndersonIn the event this information is protected by the Federal Confidentiality of Alcohol and Drug Abuse Patient Records regulations: The Federal rules restrict any use of the information to criminally investigate or prosecute any alcohol or drug abuse patient.[facility] AndersonIn the event this information is protected by the Federal Confidentiality of Alcohol and Drug Abuse Patient Records regulations: The Federal rules restrict any use of the information to criminally investigate or prosecute any alcohol or drug abuse patient.[facility] AndersonIn the event this information is protected by the Federal Confidentiality of Alcohol and Drug Abuse Patient Records regulations: The Federal rules restrict any use of the information to criminally investigate or prosecute any alcohol or drug abuse patient.[facility] AndersonIn the event this information is protected by the Federal Confidentiality of Alcohol and Drug Abuse Patient Records regulations: The Federal rules restrict any use of the information to criminally investigate or prosecute any alcohol or drug abuse patient.[facility] AndersonIn the event this information is protected by the Federal Confidentiality of Alcohol and Drug Abuse Patient Records regulations: The Federal rules restrict any use of the information to criminally investigate or prosecute any alcohol or drug abuse patient.[facility] AndersonIn the event this information is protected by the Federal Confidentiality of Alcohol and Drug Abuse Patient Records regulations: The Federal rules restrict any use of the information to criminally investigate or prosecute any alcohol or drug abuse patient.[facility] AndersonIn the event this information is protected by the Federal Confidentiality of Alcohol and Drug Abuse Patient Records regulations: The Federal rules restrict any use of the information to criminally investigate or prosecute any alcohol or drug abuse patient.[facility] AndersonIn the event this information is protected by the Federal Confidentiality of Alcohol and Drug Abuse Patient Records regulations: The Federal rules restrict any use of the information to criminally investigate or prosecute any alcohol or drug abuse patient.[facility] AndersonIn the event this information is protected by the Federal Confidentiality of Alcohol and Drug Abuse Patient Records regulations: The Federal rules restrict any use of the information to criminally investigate or prosecute any alcohol or drug abuse patient.[facility] AndersonIn the event this information is protected by the Federal Confidentiality of Alcohol and Drug Abuse Patient Records regulations: The Federal rules restrict any use of the information to criminally investigate or prosecute any alcohol or drug abuse patient.[facility] AndersonIn the event this information is protected by the Federal Confidentiality of Alcohol and Drug Abuse Patient Records regulations: The Federal rules restrict any use of the information to criminally investigate or prosecute any alcohol or drug abuse patient.[facility] AndersonIn the event this information is protected by the Federal Confidentiality of Alcohol and Drug Abuse Patient Records regulations: The Federal rules restrict any use of the information to criminally investigate or prosecute any alcohol or drug abuse patient.[facility] AndersonIn the event this information is protected by the Federal Confidentiality of Alcohol and Drug Abuse Patient Records regulations: The Federal rules restrict any use of the information to criminally investigate or prosecute any alcohol or drug abuse patient.[facility] AndersonIn the event this information is protected by the Federal Confidentiality of Alcohol and Drug Abuse Patient Records regulations: The Federal rules restrict any use of the information to criminally investigate or prosecute any alcohol or drug abuse patient.[facility] AndersonIn the event this information is protected by the Federal Confidentiality of Alcohol and Drug Abuse Patient Records regulations: The Federal rules restrict any use of the information to criminally investigate or prosecute any alcohol or drug abuse patient.[facility] AndersonIn the event this information is protected by the Federal Confidentiality of Alcohol and Drug Abuse Patient Records regulations: The Federal rules restrict any use of the information to criminally investigate or prosecute any alcohol or drug abuse patient.[facility] AndersonIn the event this information is protected by the Federal Confidentiality of Alcohol and Drug Abuse Patient Records regulations: The Federal rules restrict any use of the information to criminally investigate or prosecute any alcohol or drug abuse patient.[facility] AndersonIn the event this information is protected by the Federal Confidentiality of Alcohol and Drug Abuse Patient Records regulations: The Federal rules restrict any use of the information to criminally investigate or prosecute any alcohol or drug abuse patient.[facility] AndersonIn the event this information is protected by the Federal Confidentiality of Alcohol and Drug Abuse Patient Records regulations: The Federal rules restrict any use of the information to criminally investigate or prosecute any alcohol or drug abuse patient.[facility] AndersonIn the event this information is protected by the Federal Confidentiality of Alcohol and Drug Abuse Patient Records regulations: The Federal rules restrict any use of the information to criminally investigate or prosecute any alcohol or drug abuse patient.[facility] AndersonIn the event this information is protected by the Federal Confidentiality of Alcohol and Drug Abuse Patient Records regulations: The Federal rules restrict any use of the information to criminally investigate or prosecute any alcohol or drug abuse patient.[facility] AndersonIn the event this information is protected by the Federal Confidentiality of Alcohol and Drug Abuse Patient Records regulations: The Federal rules restrict any use of the information to criminally investigate or prosecute any alcohol or drug abuse patient.[facility] AndersonIn the event this information is protected by the Federal Confidentiality of Alcohol and Drug Abuse Patient Records regulations: The Federal rules restrict any use of the information to criminally investigate or prosecute any alcohol or drug abuse patient.[facility] AndersonIn the event this information is protected by the Federal Confidentiality of Alcohol and Drug Abuse Patient Records regulations: The Federal rules restrict any use of the information to criminally investigate or prosecute any alcohol or drug abuse patient.[facility] AndersonIn the event this information is protected by the Federal Confidentiality of Alcohol and Drug Abuse Patient Records regulations: The Federal rules restrict any use of the information to criminally investigate or prosecute any alcohol or drug abuse patient.[facility] AndersonIn the event this information is protected by the Federal Confidentiality of Alcohol and Drug Abuse Patient Records regulations: The Federal rules restrict any use of the information to criminally investigate or prosecute any alcohol or drug abuse patient.[facility] AndersonIn the event this information is protected by the Federal Confidentiality of Alcohol and Drug Abuse Patient Records regulations: The Federal rules restrict any use of the information to criminally investigate or prosecute any alcohol or drug abuse patient.[facility] AndersonIn the event this information is protected by the Federal Confidentiality of Alcohol and Drug Abuse Patient Records regulations: The Federal rules restrict any use of the information to criminally investigate or prosecute any alcohol or drug abuse patient.[facility] AndersonIn the event this information is protected by the Federal Confidentiality of Alcohol and Drug Abuse Patient Records regulations: The Federal rules restrict any use of the information to criminally investigate or prosecute any alcohol or drug abuse patient.[facility] AndersonIn the event this information is protected by the Federal Confidentiality of Alcohol and Drug Abuse Patient Records regulations: The Federal rules restrict any use of the information to criminally investigate or prosecute any alcohol or drug abuse patient.[facility] AndersonIn the event this information is protected by the Federal Confidentiality of Alcohol and Drug Abuse Patient Records regulations: The Federal rules restrict any use of the information to criminally investigate or prosecute any alcohol or drug abuse patient.[facility] AndersonIn the event this information is protected by the Federal Confidentiality of Alcohol and Drug Abuse Patient Records regulations: The Federal rules restrict any use of the information to criminally investigate or prosecute any alcohol or drug abuse patient.[facility] AndersonIn the event this information is protected by the Federal Confidentiality of Alcohol and Drug Abuse Patient Records regulations: The Federal rules restrict any use of the information to criminally investigate or prosecute any alcohol or drug abuse patient.[facility] AndersonIn the event this information is protected by the Federal Confidentiality of Alcohol and Drug Abuse Patient Records regulations: The Federal rules restrict any use of the information to criminally investigate or prosecute any alcohol or drug abuse patient.[facility] AndersonIn the event this information is protected by the Federal Confidentiality of Alcohol and Drug Abuse Patient Records regulations: The Federal rules restrict any use of the information to criminally investigate or prosecute any alcohol or drug abuse patient.[facility] AndersonIn the event this information is protected by the Federal Confidentiality of Alcohol and Drug Abuse Patient Records regulations: The Federal rules restrict any use of the information to criminally investigate or prosecute any alcohol or drug abuse patient.[facility] AndersonIn the event this information is protected by the Federal Confidentiality of Alcohol and Drug Abuse Patient Records regulations: The Federal rules restrict any use of the information to criminally investigate or prosecute any alcohol or drug abuse patient.[facility] AndersonIn the event this information is protected by the Federal Confidentiality of Alcohol and Drug Abuse Patient Records regulations: The Federal rules restrict any use of the information to criminally investigate or prosecute any alcohol or drug abuse patient.[facility] AndersonIn the event this information is protected by the Federal Confidentiality of Alcohol and Drug Abuse Patient Records regulations: The Federal rules restrict any use of the information to criminally investigate or prosecute any alcohol or drug abuse patient.[facility] AndersonIn the event this information is protected by the Federal Confidentiality of Alcohol and Drug Abuse Patient Records regulations: The Federal rules restrict any use of the information to criminally investigate or prosecute any alcohol or drug abuse patient.[facility] AndersonIn the event this information is protected by the Federal Confidentiality of Alcohol and Drug Abuse Patient Records regulations: The Federal rules restrict any use of the information to criminally investigate or prosecute any alcohol or drug abuse patient.[facility] AndersonIn the event this information is protected by the Federal Confidentiality of Alcohol and Drug Abuse Patient Records regulations: The Federal rules restrict any use of the information to criminally investigate or prosecute any alcohol or drug abuse patient.[facility] AndersonIn the event this information is protected by the Federal Confidentiality of Alcohol and Drug Abuse Patient Records regulations: The Federal rules restrict any use of the information to criminally investigate or prosecute any alcohol or drug abuse patient.[facility] AndersonIn the event this information is protected by the Federal Confidentiality of Alcohol and Drug Abuse Patient Records regulations: The Federal rules restrict any use of the information to criminally investigate or prosecute any alcohol or drug abuse patient.[facility] AndersonIn the event this information is protected by the Federal Confidentiality of Alcohol and Drug Abuse Patient Records regulations: The Federal rules restrict any use of the information to criminally investigate or prosecute any alcohol or drug abuse patient.[facility] AndersonIn the event this information is protected by the Federal Confidentiality of Alcohol and Drug Abuse Patient Records regulations: The Federal rules restrict any use of the information to criminally investigate or prosecute any alcohol or drug abuse patient.[facility] AndersonIn the event this information is protected by the Federal Confidentiality of Alcohol and Drug Abuse Patient Records regulations: The Federal rules restrict any use of the information to criminally investigate or prosecute any alcohol or drug abuse patient.[facility] AndersonIn the event this information is protected by the Federal Confidentiality of Alcohol and Drug Abuse Patient Records regulations: The Federal rules restrict any use of the information to criminally investigate or prosecute any alcohol or drug abuse patient.[facility] Reason for Visit (unrecogniz ed section and content) Reason Comments Refill Request Reason Comments Sinus Problem Reason Comments Contact Lens Follow Up Reason Comments Cough Reason Comments UTI Reason Onset Date Comments Refill Request 10/05/2021 Reason Onset Date Comments Refill Request 12/08/2021 Reason Onset Date Comments Refill Request 12/07/2021 Reason Comments Eye Problem Left eye Reason Comments Menstrual Problem Reason Comments Multimedia Author - Other 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 Reason Comments Depression Post Reason Comments Pelvic Pain Specialty Diagnoses / Procedures Referred By Contac t Referred To Contact Diagnoses Pelvic pain in female Procedures CONSULT TO MOBILE UNIT ASSISTANT PELVIC PAIN OFFICE/OUTPATIENT [facility] 60-74 MINUTES Chaya Fermin APRN.CNM [address] [place] [address] Referral ID Status Reason Start Date Expiration Date V isits Requested Visits Authorized [id number] Closed PCP Requested Referral Auto-Generated Referral 03/12/2022 03/12/2023 1 1 Reason Comments Follow Up Reason Onset Date Comments Refill Request 06/08/2022 Reason Comments Radiology MRI Specialty Diagnoses / Procedures Referred By Contac t Referred To Contact MR IMAGING Diagnoses Primary dysmenorrhea Pelvic and perineal pain Deep dyspareunia Procedures MRI FEMALE PELVIS WO/W IVCON MRI PELVIS W/O & W/CONTRAST MATERIAL Shyanne Christie APRN.TECHNICAL STENOGRAPHER [address] [place] [address] Mr Imaging Referral ID Status Reason Start Date Expiration Date V isits Requested Visits Authorized [id number] Closed Auto-Generate d Referral 07/28/2022 08/27/2022 1 1 Reason Comments F/U 3 Month Reason Comments Results Reason Onset Date Comments Refill Request 10/29/2022 Reason Comments Physical for school Reason Comments Ear Problem Sinus Problem Reason Comments Contact lens evaluation Dry Eye Syndrome Follow Up Reason Comments US Specialty Diagnoses / Procedures Referred By Contac t Referred To Contact [facility] Diagnoses with fetus of unknown gestational age Procedures OBSTETRIC ULTRASOUND WHI US PREG UTERUS AFTER 1ST TRIMEST GESTATION Chaya Fermin APRN.CNM [address] [place] [address] Phone: tel: fax: [facility] [address] [place] [address] Referral ID Status Reason Start Date Expiration Date V isits Requested Visits Authorized [id number] Closed Auto-Generate d Referral 07/07/2024 07/07/2025 1 1 Reason Onset Date Comments Care 07/12/2024 Reason Comments Care Reason Onset Date Comments Care 08/02/2024 Reason Comments Consult Specialty Diagnoses / Procedures Referred By Contac t Referred To Contact Diagnoses Supervision of other high risk pregnancies, second trimester Other migraine without status migrainosus, not intractable Procedures CONSULT TO HEADACHE CLINIC OFFICE/OUTPATIENT [facility] 60 MINUTES Chaya Fermin APRN.CNM [address] [place] [address] Phone: tel: fax:[phone] Referral ID Status Reason Start Date Expiration Date V isits Requested Visits Authorized [id number] Closed PCP Requested Referral 07/22/2024 07/22/2025 1 1 Reason Onset Date Comments Refill Request 07/22/2024 Specialty Diagnoses / Procedures Referred By Contac t Referred To Contact [facility] Diagnoses Supervision of other high risk pregnancies, second trimester (HCC) 12 weeks gestation of (HCC) Procedures OBSTETRIC ULTRASOUND WHI US PREG UTERUS AFTER 1ST TRIMEST GESTATION Chaya Fermin APRN.CNM [address] [place] [address] Phone: tel: fax: [address] [address] Referral ID Status Reason Start Date Expiration Date V isits Requested Visits Authorized [id number] Closed Auto-Generate d Referral 07/07/2024 07/07/2025 1 1 Reason Onset Date Comments Care 08/30/2024 Reason Comments Consult echo Reason Comments Request Outside Medical Records Reason Onset Date Comments Care 09/27/2024 Reason Onset Date Comments Refill Request 10/17/2024 Specialty Diagnoses / Procedures Referred By Contac t Referred To Contact [facility] Diagnoses Supervision of high risk in third trimester (HCC) Obesity affecting in third trimester, unspecified obesity type (HCC) Procedures OBSTETRIC ULTRASOUND WHI US PREG UTERUS AFTER 1ST TRIMEST GESTATION Chaya Fermin APRN.[place] [address] [place] [address] Phone: tel: fax: [address] [phone] Referral ID Status Reason Start Date Expiration Date V isits Requested Visits Authorized [id number] Closed Auto-Generate d Referral 08/30/2024 08/30/2025 4 1 Reason Comments GDM Specialty Diagnoses / Procedures Referred By Contac t Referred To Contact Diagnoses Diet controlled gestational diabetes mellitus (GDM) in third trimester (HCC) Procedures CONSULT TO DIABETES EDUCATION DSME MEDICAL NUTRITION ASSMT&IVNTJ INDIV EACH 15 PR MEDICAL NUTRITION ASSMT&IVNTJ INDIV EACH 15 PR MEDICAL NUTRITION ASSMT&IVNTJ INDIV EACH 15 PR MEDICAL NUTRITION ASSMT&IVNTJ INDIV EACH 15 PR Chaya Fermin APRN.[place] [address] [place] [address] Phone: tel: fax:[phone] Referral ID Status Reason Start Date Expiration Date V isits Requested Visits Authorized [id number] Closed PCP Requested Referral 10/27/2024 10/27/2025 1 1 Reason Onset Date Comments Care 11/08/2024 Reason Onset Date Comments Care 10/25/2024 Reason Onset Date Comments Care 11/24/2024 Reason Onset Date Comments Care 12/06/2024 Specialty Diagnoses / Procedures Referred By Contnoble t Referred To Contact [facility] Diagnoses Diet controlled gestational diabetes mellitus (GDM) in third trimester (HCC) Procedures OBSTETRIC ULTRASOUND WHI US PREG UTERUS AFTER 1ST TRIMEST GESTATION Chaya Fermin APRN.CNSrinivas [address] [place] [address] Phone: tel: fax: [facility] [address] [place] [address] Referral ID Status Reason Start Date Expiration Date V isits Requested Visits Authorized [id number] Closed Auto-Generate d Referral 10/27/2024 10/27/2025 5 1 Reason Onset Date Comments Care 12/27/2024 Reason Onset Date Comments Care 01/03/2025 Care Teams (unrecognized sec tion and content) Deblocker Relationship Specialty Start Date End Date Ze Pugh DO [address] [place] [address] PCP - General Family Practice 07/12/13 Deblocker Relationship Specialty Start Date End Date Ze Pugh DO [address] [place] [address] PCP - General Family Practice 07/12/13 Deblocker Relationship Specialty Start Date End Date Ze Pugh DO [address] [place] [address] PCP - General Family Practice 07/12/13 Deblocker Relationship Specialty Start Date End Date Ze Pugh DO [address] [place] [address] PCP - General Family Practice 07/12/13 Deblocker Relationship Specialty Start Date End Date Ze Pugh DO [address] [place] [address] PCP - General Family Practice 07/12/13 Deblocker Relationship Specialty Start Date End Date Ze Pugh, DO [address] [place] [address] PCP - General Family Practice 07/12/13 Deblocker Relationship Specialty Start Date End Date Ze Pugh, DO [address] [place] [address] PCP - General Family Practice 07/12/13 Deblocker Relationship Specialty Start Date End Date Ze Pugh, DO [address] [place] [address] PCP - General Family Medicine 07/12/13 Deblocker Relationship Specialty Start Date End Date Ze Pugh, DO [address] [place] [address] PCP - General Family Medicine 07/12/13 Deblocker Relationship Specialty Start Date End Date Ze Pugh, DO [address] [place] [address] PCP - General Family Medicine 07/12/13 Deblocker Relationship Specialty Start Date End Date Ze Pugh, DO [address] [place] [address] PCP - General Family Medicine 07/12/13 Deblocker Relationship Specialty Start Date End Date Ze Pugh, DO [address] [place] [address] PCP - General Family Medicine 07/12/13 Deblocker Relationship Specialty Start Date End Date Ze Pugh, DO [address] [place] [address] PCP - General Family Medicine 07/12/13 Deblocker Relationship Specialty Start Date End Date Ze Pugh, DO [address] [place] [address] PCP - General Family Medicine 07/12/13 Deblocker Relationship Specialty Start Date End Date Ze Pugh, DO [address] [place] [address] PCP - General Family Medicine 07/12/13 Deblocker Relationship Specialty Start Date End Date Ze Pugh DO [address] [place] [address] PCP - General Family Medicine 07/12/13 Deblocker Relationship Specialty Start Date End Date Ze Pugh, DO [address] [facility] [place] [address] PCP - General Family Medicine 07/12/13 Deblocker Relationship Specialty Start Date End Date Ze Pugh DO [address] [facility] [place] [address] PCP - General Family Medicine 07/12/13 Deblocker Relationship Specialty Start Date End Date Ze Pugh DO [address] [facility] [place] [address] PCP - General Family Medicine 07/12/13 Deblocker Relationship Specialty Start Date End Date Ze Pugh DO [address] [facility] [place] [address] PCP - General Family Medicine 07/12/13 Deblocker Relationship Specialty Start Date End Date Ze Pugh DO [address] [place] [address] PCP - General Family Medicine 07/12/13 Deblocker Relationship Specialty Start Date End Date Ze Pugh DO [address] [place] [address] PCP - General Family Medicine 07/12/13 Deblocker Relationship Specialty Start Date End Date Ze Pugh DO [address] [facility] [place] [address] PCP - General Family Medicine 07/12/13 Radha Brown, LITIGATION EXAMINER.TECHNICAL STENOGRAPHER [address] [facility] [place] [address] Sod Farmer Family [facility] 05/02/24 [facility]Lacey, LITIGATION EXAMINER.TECHNICAL STENOGRAPHER [address] [facility] [address] [facility] Deblocker Relationship Specialty Start Date End Date Ze Pugh DO [address] [facility] [address] PCP - General Family Medicine 07/12/13 Radha Brown, LITIGATION EXAMINER.TECHNICAL STENOGRAPHER [address] [facility] [address] [facility] 05/[facility]/24 CecilLacey, LITIGATION EXAMINER.TECHNICAL STENOGRAPHER [address] [facility] [address] [facility] 05/02/24 Deblocker Relationship Specialty Start Date End Date Ze Pugh DO [address] [facility] [address] PCP - General Family Medicine 07/12/13 Radha Brown, LITIGATION EXAMINER.TECHNICAL STENOGRAPHER [address] [facility] [address] Sod Farmer Family [facility] 05/02/24 CecilLacey, LITIGATION EXAMINER.TECHNICAL STENOGRAPHER [address] [place] [address] Sod Farmer [facility] 05/02/24 Deblocker Relationship Specialty Start Date End Date Ze Pugh DO [address] [place] [address] PCP - General Family Medicine 07/12/13 Radha Brown, LITIGATION EXAMINER.TECHNICAL STENOGRAPHER [address] [place] [address] Sod Farmer Family [facility] 05/02/24 CecilLacey, LITIGATION EXAMINER.TECHNICAL STENOGRAPHER [address] [place] [address] [facility] 05/02/24 Deblocker Relationship Specialty Start Date End Date Ze Pugh DO [address] [place] [address] PCP - General Family Medicine 07/12/13 Radha Brown, LITIGATION EXAMINER.TECHNICAL STENOGRAPHER [address] [place] [address] [facility] 05/02/24 CecilLacey, LITIGATION EXAMINER.TECHNICAL STENOGRAPHER [address] [place] [address] [facility] 05/02/24 Deblocker Relationship Specialty Start Date End Date Ze Pugh DO [address] [place] [address] PCP - General Family Medicine 07/12/13 Radha Brown, LITIGATION EXAMINER.TECHNICAL STENOGRAPHER [address] [place] [address] Sod Farmer [facility] 05/02/24 Lacey Jacob, LITIGATION EXAMINER.TECHNICAL STENOGRAPHER [address] [place] [address] Sod Farmer [facility] 05/02/24 Deblocker Relationship Specialty Start Date End Date Ze Pugh DO [address] [place] [address] PCP - General Family Medicine 07/12/13 Lacey Jacob, LITIGATION EXAMINER.TECHNICAL STENOGRAPHER [address] [place] [address] [facility] 05/02/24 Deblocker Relationship Specialty Start Date End Date Ze Pugh DO [address] [facility] [place] [address] PCP - General Family Medicine 07/12/13 Lacey Jacob, LITIGATION EXAMINER.TECHNICAL STENOGRAPHER [address] [place] [address] [facility] 05/02/24 Deblocker Relationship Specialty Start Date End Date Ze Pugh DO [address] [place] [address] PCP - General Family Medicine 07/12/13 Radha Brown, LITIGATION EXAMINER.TECHNICAL STENOGRAPHER [address] [place] [address] Sod Farmer [facility] 05/02/24 08/13/24 Lacey Jacob, LITIGATION EXAMINER.TECHNICAL STENOGRAPHER [address] [facility] [place] [address] Sod Farmer Family [facility] 05/02/24 Deblocker Relationship Specialty Start Date End Date Ze Pugh DO [address] [place] [address] PCP - General Family Medicine 07/12/13 Lacey Jacob, LITIGATION EXAMINER.TECHNICAL STENOGRAPHER [address] [facility] [place] [address] [facility] 05/02/24 Deblocker Relationship Specialty Start Date End Date Ze Pugh DO [address] [facility] [place] [address] PCP - General Family Medicine 07/12/13 Lacey Jacob, LITIGATION EXAMINER.TECHNICAL STENOGRAPHER [address] [place] [address] [facility] 05/02/24 Deblocker Relationship Specialty Start Date End Date Ze Pugh DO [address] [facility] [place] [address] PCP - General Family Medicine 07/12/13 Lacey Jacob, LITIGATION EXAMINER.TECHNICAL STENOGRAPHER [address] [facility] [place] [address] [facility] 05/02/24 Deblocker Relationship Specialty Start Date End Date Ze Pugh DO [address] [facility] [place] [address] PCP - General Family Medicine 07/12/13 Lacey Jacob, LITIGATION EXAMINER.TECHNICAL STENOGRAPHER [address] [place] [address] Sod Farmer Family [facility] 05/02/24 Deblocker Relationship Specialty Start Date End Date Ze Pugh DO [address] [place] [address] PCP - General Family Medicine 07/12/13 [facility]Lacey, LITIGATION EXAMINER.TECHNICAL STENOGRAPHER [address] [place] [address] [facility] 05/02/24 Deblocker Relationship Specialty Start Date End Date Ze Pugh DO [address] [place] [address] PCP - General Family Medicine 07/12/13 CecilLacey, LITIGATION EXAMINER.TECHNICAL STENOGRAPHER [address] [place] [address] [facility] 05/02/24 Deblocker Relationship Specialty Start Date End Date Ze Pugh DO [address] [place] [address] PCP - General Family Medicine 07/12/13 CecilLacey, LITIGATION EXAMINER.TECHNICAL STENOGRAPHER [address] [place] [address] [facility] 05/02/24 Deblocker Relationship Specialty Start Date End Date Ze Pugh DO [address] [place] [address] PCP - General Family Medicine 07/12/13 CecilLacey, LITIGATION EXAMINER.TECHNICAL STENOGRAPHER [address] [place] [address] Sod Farmer [facility] 05/02/24 Deblocker Relationship Specialty Start Date End Date Ze Pugh DO [address] [facility] [address] PCP - General Family Medicine 07/12/13 Lacey Jacob, LITIGATION EXAMINER.TECHNICAL STENOGRAPHER [address] [place] [address] Sod Farmer [facility] 05/02/24 Augustina Robert, LITIGATION EXAMINER.TECHNICAL STENOGRAPHER [address] [place] [address] [facility] 11/08/24 Deblocker Relationship Specialty Start Date End Date Ze Pugh DO [address] [facility] [address] PCP - General Family Medicine 07/12/13 CecilLacey, LITIGATION EXAMINER.TECHNICAL STENOGRAPHER [address] [facility] [address] [facility] 05/02/24 Augustina Robert, LITIGATION EXAMINER.TECHNICAL STENOGRAPHER [address] [place] [address] [facility] 11/08/24 Deblocker Relationship Specialty Start Date End Date Ze Pugh DO [address] [facility] [address] PCP - General Family Medicine 07/12/13 CecilLacey, LITIGATION EXAMINER.TECHNICAL STENOGRAPHER [address] [facility] [address] Sod Farmer [facility] 05/02/24 Augustina Robert, LITIGATION EXAMINER.TECHNICAL STENOGRAPHER [address] [place] [address] Sod Farmer Family [facility] 11/08/24 Deblocker Relationship Specialty Start Date End Date Ze Pugh DO [address] [facility] [address] PCP - General Family Medicine 07/12/13 Lacey Jacob, LITIGATION EXAMINER.TECHNICAL STENOGRAPHER [address] [place] [address] Sod Farmer [facility] 05/02/24 Augustina Robert, LITIGATION EXAMINER.TECHNICAL STENOGRAPHER [address] [place] [address] Sod Farmer [facility] 11/08/24 Deblocker Relationship Specialty Start Date End Date Ze Pugh DO [address] [facility] [address] PCP - General Family Medicine 07/12/13 Lacey Jacob, LITIGATION EXAMINER.TECHNICAL STENOGRAPHER [address] [place] [address] Sod Farmer [facility] 05/02/24 Augustina Robert, LITIGATION EXAMINER.TECHNICAL STENOGRAPHER [address] [place] [address] Sod Farmer Family [facility] 11/08/24 Deblocker Relationship Specialty Start Date End Date Ze Pugh DO [address] [facility] [address] PCP - General Family Medicine 07/12/13 Lacey Jacob, LITIGATION EXAMINER.TECHNICAL STENOGRAPHER [address] [place] [address] Sod Farmer [facility] 05/02/24 Augustina Robert, LITIGATION EXAMINER.TECHNICAL STENOGRAPHER [address] [place] [address] Sod Farmer [facility] 11/08/24 Deblocker Relationship Specialty Start Date End Date Ze Pugh DO [address] [place] [address] PCP - General Family Medicine 07/12/13 Lacey Jacob, LITIGATION EXAMINER.TECHNICAL STENOGRAPHER [address] [place] [address] Sod Farmer [facility] 05/02/24 Augustina Robert, LITIGATION EXAMINER.TECHNICAL STENOGRAPHER [address] [place] [address] Sod Farmer [facility] 11/08/24 Deblocker Relationship Specialty Start Date End Date Ze Pugh DO [address] [place] [address] PCP - General Family Medicine 07/12/13 Lacey Jacob, LITIGATION EXAMINER.TECHNICAL STENOGRAPHER [address] [place] [address] Sod Farmer [facility] 05/02/24 Augustina Robert, LITIGATION EXAMINER.TECHNICAL STENOGRAPHER [address] [place] [address] Sod Farmer Family [facility] 11/08/24 Deblocker Relationship Specialty Start Date End Date Ze Pugh DO [address] [place] [address] PCP - General Family Medicine 07/12/13 Lacey Jacob APRN.TECHNICAL STENOGRAPHER [address] [place], [place] [id number] [facility] 05/02/24 Augustina Robert APRN.TECHNICAL STENOGRAPHER [address] [place], [place] [address] [facility] 11/08/24 Deblocker Relationship Specialty Start Date End Date Ze Pugh DO [address] [place], [place] [address] PCP - General Family Medicine 07/12/13 Lacey Jacob, TAB.TECHNICAL STENOGRAPHER [address] [place], [place] [address] [facility] 05/02/24 Augustina Robert, TAB.TECHNICAL STENOGRAPHER [address] [place], [place] [id number] [facility] 11/08/24 INFORMATION SOURCE (unrecogn ized section and content) DATE CREATED AUTHOR 09/30/2024 [facility] DATE CREATED AUTHOR AUTHOR'S ORGANIZ ATION 12/17/2024 [facility] DATE CREATED AUTHOR AUTHOR'S ORGANIZ ATION 01/04/2025 [facility] FOR RECORDS PERTAINING TO PATIENTS WHO ARE [...] BE BASED ON THE PRIMARY CLINICAL RECORDS. [employer] [facility]. provides no warranty or guarantee of the accuracy or completeness of information in this document.
[2025-01-06] MEDS: Lactated Ringers 1,000 ML 999 ML IV ×2 (01:45→03:00)
[2025-01-06 02:07] LABS: Hematocrit 32.7 % (37-47); Hemoglobin 10.9 g/dL (12.0-15.0); Immature Granulocytes Count 0.070 X10^3/uL (0.0-0.0); Mean Corp Hgb Conc 33.3 g/dL (32-36); Mean Corpuscular Volume 84.5 fL (81-99); Mean Platelet Vol. 10.7 fl (6.2-12.0); NRBC Flagged by Analyzer 0 % (0-5); Platelet Count 242 K/mm3 (150-450); RBC Distribution Width CV 14.6 % (11.6-14.6); RBC Distribution Width SD 44.6 fl (35.1-43.9); Red Blood Count 3.87 M/mm3 (4.2-5.4); White Blood Count 17.0 K/mm3 (4.4-11.0)
[2025-01-06 02:43] LABS: Syphilis Antibodies Nonreactive (Nonreactive)
[2025-01-06] MEDS: fentaNYL-bupivacaine (epidural) 100 ML BAG EPIDURAL (02:43)
[2025-01-06] MEDS: Penicillin G Pot 5,000,000 UNITS in 0.9% Normal Saline (100mL MB+) 100 ML 150 UNITS IV (03:15)
--- NOTE | 2025-01-06 05:15 | PCM.HP.OB ---
HPI - General General Date of Admission: 01/06/25 Date of Service: 01/06/25 Chief Complaint: contractions and leaking of fluid HPI Narrative BRYCE WILSON, is a 34 F who presents 4 para 2-0-1-2 at 38-5/7 weeks gestation with contractions and leaking of fluid. She arrived to labor and delivery and was found to have rupture of membranes and to be in labor. It is noted that this is a surrogate . 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 Maternal Data Information DIDIER Calculator Estimated Delivery Date Method Current WG Current Estimate 01/16/25 Manual 38w 4d Final DIDIER: 01/15/25 Gestational age: 38 5/7 [facility] Medical History (Updated 01/06/25 @ 05:[address] Nelly Solorzano MD) Gestational diabetes Depression Anxiety Surrogate PCOS (polycystic ovarian syndrome) Home Medications ?Medication ?Instructions ?Recorded ?Last Taken ?Type vits,calcium no.78-iron 1 tab PO DAILY 05/09/18 01/05/25 08:00 History fumarate-folic acid 29 mg-1 mg tablet (Prenatabs FA) acyclovir 400 mg tablet 400 mg PO TID see prov 01/06/25 01/05/25 08:00 History aspirin 81 mg chewable tablet 1 tab PO DAILY see provid 01/06/25 01/05/25 08:00 History (Aspirin Childrens) ferrous sulfate 325 mg (65 mg 325 mg PO QODAY see provider 01/06/25 01/05/25 08:00 History iron) tablet (Feosol) Allergy/AdvReac Type Severity Reaction Status Date / Time No Known Allergies Allergy Verified 01/06/25 02:05 Surgical History (Updated 01/06/25 @ 01:56 by Wesley Rajan) History of surgery History of tonsillectomy Social History Smoking Status: Never smoker History Elective abortions Hx Para 2 Spontaneous abortions Hx # Term Pregnancies Ectopic pregnancies Hx # Pregnancies Multiple births # of living children ROS Constitutional Constitutional: Denies fatigue, fever(s) or malaise Eyes Eyes: Denies change in vision ENT HEENT: Denies dizziness or headache(s) Cardiovascular Cardiovascular: Denies chest pain, dyspnea or lightheadedness Respiratory/Chest Respiratory/Chest: Denies cough or dyspnea Gastrointestinal Gastrointestinal: Denies change in bowel habits Genitourinary Genitourinary: Denies burning urination or genital lesions Integumentary Integumentary: Denies rash Neurologic Neurologic: Denies confusion, dizziness, headache(s), numbness or weakness Vital Signs Vital Signs Vital Signs: 01/06/25 00:35 01/06/25 00:35 01/06/25 00:35 Temperature 98.1 F Pulse Rate 118 H Respiratory Rate Blood Pressure 131/98 H BP Systolic 131 BP Diastolic 98 Pulse Ox 01/06/25 00:36 01/06/25 00:36 01/06/25 00:36 Temperature Pulse Rate 162 H Respiratory Rate 16 Blood Pressure BP Systolic BP Diastolic Pulse Ox 81 01/06/25 02:25 01/06/25 02:25 01/06/25 02:25 Temperature Pulse Rate 110 H Respiratory Rate 16 Blood Pressure 157/98 H BP Systolic 157 BP Diastolic 98 Pulse Ox 01/06/25 02:25 01/06/25 02:29 01/06/25 02:29 Temperature Pulse Rate 105 H Respiratory Rate Blood Pressure 139/82 H BP Systolic 139 BP Diastolic 82 Pulse Ox 100 01/06/25 02:29 01/06/25 02:30 01/06/25 02:30 Temperature Pulse Rate 113 H Respiratory Rate 16 Blood Pressure BP Systolic BP Diastolic Pulse Ox 100 01/06/25 02:34 01/06/25 02:34 01/06/25 02:34 Temperature Pulse Rate 99 Respiratory Rate 16 Blood Pressure 141/76 H BP Systolic 141 BP Diastolic 76 Pulse Ox 01/06/25 02:35 01/06/25 02:35 01/06/25 02:39 Temperature Pulse Rate 99 Respiratory Rate Blood Pressure 136/73 H BP Systolic 136 BP Diastolic 73 Pulse Ox 100 01/06/25 02:39 01/06/25 02:39 01/06/25 02:40 Temperature Pulse Rate 99 103 H Respiratory Rate 16 Blood Pressure BP Systolic BP Diastolic Pulse Ox 01/06/25 02:40 01/06/25 02:45 01/06/25 02:45 Temperature Pulse Rate 110 H Respiratory Rate Blood Pressure 154/113 H BP Systolic 154 BP Diastolic 113 Pulse Ox 100 01/06/25 02:45 01/06/25 02:50 01/06/25 02:50 Temperature Pulse Rate 116 H Respiratory Rate Blood Pressure 176/82 H BP Systolic 176 BP Diastolic 82 Pulse Ox 99 01/06/25 02:50 01/06/25 02:52 01/06/25 02:52 Temperature Pulse Rate 122 H Respiratory Rate Blood Pressure 118/57 L BP Systolic 118 BP Diastolic 57 Pulse Ox 100 01/06/25 02:55 01/06/25 02:55 01/06/25 02:55 Temperature Pulse Rate 131 H Respiratory Rate Blood Pressure 114/54 L BP Systolic 114 BP Diastolic 54 Pulse Ox 99 01/06/25 02:58 01/06/25 03:00 01/06/25 03:00 Temperature 97.0 F L Pulse Rate 130 H Respiratory Rate Blood Pressure 100/57 L BP Systolic 100 BP Diastolic 57 Pulse Ox 01/06/25 03:00 01/06/25 03:00 01/06/25 03:04 Temperature Pulse Rate Respiratory Rate 16 Blood Pressure 106/52 L BP Systolic 106 BP Diastolic 52 Pulse Ox 100 01/06/25 03:04 01/06/25 03:04 01/06/25 03:05 Temperature Pulse Rate 121 H 123 H Respiratory Rate 14 Blood Pressure BP Systolic BP Diastolic Pulse Ox 01/06/25 03:05 01/06/25 03:10 01/06/25 03:10 Temperature Pulse Rate 119 H Respiratory Rate Blood Pressure 97/56 L BP Systolic 97 BP Diastolic 56 Pulse Ox 100 01/06/25 03:10 01/06/25 03:10 01/06/25 03:14 Temperature Pulse Rate Respiratory Rate 15 Blood Pressure 89/52 L BP Systolic 89 BP Diastolic 52 Pulse Ox 100 01/06/25 03:14 01/06/25 03:14 01/06/25 03:15 Temperature Pulse Rate 114 H 116 H Respiratory Rate 15 Blood Pressure BP Systolic BP Diastolic Pulse Ox 01/06/25 03:15 01/06/25 03:19 01/06/25 03:19 Temperature Pulse Rate 150 H Respiratory Rate Blood Pressure 89/56 L BP Systolic 89 BP Diastolic 56 Pulse Ox 100 01/06/25 03:19 01/06/25 03:22 01/06/25 03:22 Temperature Pulse Rate 110 H Respiratory Rate 14 Blood Pressure 86/51 L BP Systolic 86 BP Diastolic 51 Pulse Ox 01/06/25 03:22 01/06/25 03:23 01/06/25 03:23 Temperature Pulse Rate 124 H Respiratory Rate 16 Blood Pressure BP Systolic BP Diastolic Pulse Ox 100 01/06/25 03:28 01/06/25 03:28 01/06/25 03:29 Temperature Pulse Rate 77 Respiratory Rate Blood Pressure 120/75 BP Systolic 120 BP Diastolic 75 Pulse Ox 100 01/06/25 03:29 01/06/25 03:29 01/06/25 03:33 Temperature Pulse Rate 94 107 H Respiratory Rate 16 Blood Pressure BP Systolic BP Diastolic Pulse Ox 01/06/25 03:33 01/06/25 03:34 01/06/25 03:34 Temperature Pulse Rate 96 Respiratory Rate Blood Pressure 118/76 BP Systolic 118 BP Diastolic 76 Pulse Ox 100 01/06/25 03:38 01/06/25 03:38 01/06/25 03:39 Temperature Pulse Rate 98 Respiratory Rate Blood Pressure 119/64 BP Systolic 119 BP Diastolic 64 Pulse Ox 100 01/06/25 03:39 01/06/25 03:43 01/06/25 03:43 Temperature Pulse Rate 111 H 111 H Respiratory Rate Blood Pressure BP Systolic BP Diastolic Pulse Ox 100 01/06/25 03:48 01/06/25 03:48 01/06/25 03:49 Temperature Pulse Rate 102 H Respiratory Rate Blood Pressure 115/82 H BP Systolic 115 BP Diastolic 82 Pulse Ox 100 01/06/25 03:49 01/06/25 03:53 01/06/25 03:53 Temperature Pulse Rate 103 H 109 H Respiratory Rate Blood Pressure BP Systolic BP Diastolic Pulse Ox 100 01/06/25 03:54 01/06/25 03:54 01/06/25 05:13 Temperature 99.0 F Pulse Rate 104 H Respiratory Rate Blood Pressure 128/74 H BP Systolic 128 BP Diastolic 74 Pulse Ox 01/06/25 05:13 01/06/25 05:13 Temperature Pulse Rate 104 H Respiratory Rate Blood Pressure 103/57 L BP Systolic 103 BP Diastolic 57 Pulse Ox Weight Weight: 94.8 kg Body Mass Index (BMI) 37.0 Physical Exam Const alert and no apparent distress General Appearance: cooperative HEENT normocephalic Resp normal respiratory effort Cardio regular rate GI soft to palpation GI Narrative: gravid, nontender, appropriate for gestational age Extremity no calf tenderness General Extremity: edema Skin no wounds Rashes: No rashes noted Psych activity/motor behavior normal Labs Labs Labs: Blood Type O POSITIVE Antibody Screen NEGATIVE Hct 32.7 % (37-47) L Hgb 10.9 g/dL (12.0-15.0) L Syphilis Total Ab Nonreactive (Nonreactive) Rhogam given: No Assessment & Plan (1) Active labor at term: PLAN: Estimated weight is less than 4500 g clinically and pelvis clinically adequate to expect vaginal delivery. May have routine pain control measures as desired and indicated in labor. (2) 38 weeks gestation of : (3) Surrogate in third trimester: (4) resulting from in-vitro fertilization:
[2025-01-06] MEDS: Oxytocin 15 Units/NS 250ml 15 UNITS/250 ML IV.SOLN 334 UNITS IV (06:15)
--- NOTE | 2025-01-06 06:29 | EX.PCM.OBVAG ---
Maternal Data Information DIDIER Calculator Estimated Delivery Date Method Current WG Current Estimate 01/16/25 Manual 38w 4d Final DIDIER: 01/16/25 Gestational age: 38 4/7 Vaginal Delivery Maternal Presentation Maternal Presentation: Active Labor Vaginal Delivery Information Procedure Performed: Spontaneous Vaginal Delivery Surgeon/Practitioner: Nelly Solorzano Date of Procedure: 01/06/25 Pre-Procedure Diagnosis: labor Post-Procedure Diagnosis: same Type of anesthesia: Epidural Estimated Blood Loss: 300 Time of Delivery: 06:11 Findings Description of procedure: A vigorous male infant was delivered ROSY over an intact perineal laceration. The biological mother assisted with the delivery. A loose nuchal cord ?1 was easily reduced. The remainder the was delivered with maternal pushing and gentle traction only in less than 15 seconds. The Pitocin infusion was initiated for active management of the third stage. The cord was clamped and cut after cord pulsations ceased. The was attended to by the waiting nursing staff. The placenta was delivered spontaneously and intact. The cervix and vagina were intact. Sponge and needle counts were correct. A vaginal sweep was completed by me. Procedure findings: Vigorous male Amniotic Membrane Rupture Type: Spontaneous Amniotic Fluid Description: Clear Placental Delivery Description: Spontaneous Placenta Disposition: [facility] Specimen collected: No Cord Vessel Description: 3 Vessels Cord Entanglement: Around neck x 1, loose Nuchal Cord Compression: With compression A Gender: Male (1 minute): 8 (5 minute): 9 Delayed Cord Clamping: Yes Glassine Machine Tender triple valve mechanic: No Post Vaginal Deli Medications given after delivery: IV Pitocin Episiotomy Description: None Laceration: None Complication Complications: No
[2025-01-06] MEDS: Oxytocin 15 Units/NS 250ml 15 UNITS/250 ML IV.SOLN 83 UNITS IV (06:46)
[2025-01-07] VITALS (8 sets, daily range): BP systolic 100–114; BP diastolic 59–68; PULSE 68–84; RESP 16; TEMP 35.4–36.6; O2SAT 97–99
--- NOTE | 2025-01-07 09:01 | PCM.PN.OB ---
Subjective Subjective Doing well. Ambulating and voiding without difficulty. Mild lochia. Tailbone pain. Better in some positions.Baby larger than previous deliveries Objective Data Objective Data Vital Signs: Vital Signs Temp Pulse Resp BP Pulse Ox O2 Del Method 97.8 F 79 16 114/68 98 Room Air 01/07/25 08:53 01/07/25 08:53 01/07/25 08:53 01/07/25 08:53 01/07/25 08:53 01/07/25 08:53 Oxygen Delivery Method Room Air Weight: 94.8 kg Body Mass Index (BMI) 37.0 Intake & Output: Intake and Output for Last 24 Hours 01/05/25 01/06/25 01/07/25 23:59 23:59 23:59 Intake Total 2517.0 / 2517.0 Output Total 900 / 900 Balance 1617.0 / 1617.0 Lab / Micro Data 01/06/25 01:45 Labs: Laboratory Results - last 24 hr 01/07/25 05:42: POC Glucose 111 H ROS Constitutional Constitutional: Denies headache(s) Cardiovascular Cardiovascular: Denies chest pain or dyspnea Gastrointestinal Gastrointestinal: Denies nausea or vomiting Genitourinary Genitourinary: Denies dysuria Physical Exam Const alert, oriented x3 and no apparent distress General Appearance: cooperative and comfortable Eyes PERRL and EOMs intact bilaterally Resp normal respiratory effort GI soft to palpation and non-tender Uterus Palpation: uterus fundus firm ( below umbilicus) Extremity normal to inspection and full ROM Neuro oriented x3 and CN's II-XII intact bilaterally Psych mental status grossly normal Assessment & Plan (1) (spontaneous vaginal delivery):
--- NOTE | 2025-01-07 09:02 | PCM.DC.SUM ---
Providers Date of Admission: 01/06/25 Date of Discharge: 01/07/25 Primary Care Physician: Dr. Ze Pugh DO Reason For Visit: LABOR Diagnosis Discharge Diagnosis (1) (spontaneous vaginal delivery): Status: Acute Code(s): O80 - Encounter for full-term uncomplicated delivery Medications at Discharge Home Medications vits,calcium no.78-iron fumarate-folic acid 29 mg-1 mg tablet (Prenatabs FA) 1 tab PO DAILY 05/09/18 ferrous sulfate 325 mg (65 mg iron) tablet (Feosol) 325 mg PO QODAY see provider 01/06/25 Hospital Course Operations None Procedures None Summary of Care Provided Minutes Spent on Discharge: 20 Hospital Course: surragate. No complciations Baby with bio parent. Physical Exam Const alert and no apparent distress Narrative: Fundus firm, below umbilicus. Weight / BMI Weight Weight: 94.8 kg Body Mass Index (BMI) 37.0 ABG / Lab / Microbiology Data 01/06/25 01:45 Laboratory: Laboratory Results - last 24 hr 01/07/25 05:42: POC Glucose 111 H D/C Instructions May resume sexual activity in: 6 weeks DC O2, CPAP, BIPAP Needs Home O2 Discharge instructions: No Please Follow Up With: Nelly Solorzano MD When: Follow up with our office in 1-2 and 6 weeks or as needed. [phone] Meaningful Use Info Meaningful Use Meaningful Use Diagnoses (Choose all that apply): None applicable Discharge Plan Admission Admit Date/Time: 01/06/25 00:59 Primary Reason for Your Visit: labor Attending Provider: Nelly Solorzano Primary Care Provider: Ze Pugh Discharge Orders/Prescriptions Prescriptions: Continued Prenatabs FA 1 TABLET tablet 1 tab PO DAILY ferrous sulfate [Feosol] 325 mg (65 mg iron) tablet 325 mg PO QODAY Discontinued aspirin [Aspirin Childrens] 81 mg tablet,chewable 1 tab PO DAILY acyclovir 400 mg tablet 400 mg PO TID Referrals / Follow Up: Ze Pugh DO [Primary Care Provider] - Disposition Disposition (needs filled in before D/C Order can be placed): Home, Self Care
--- NOTE | 2025-01-07 10:45 | CASEMGMT ---
Social Work Brief Assessment - Labor and Delivery Unit Patient Address:[address] [place] [address] Phone number: [phone] Date and Time of Referral:? 01/06/25915 Referred By: Dr. Solorzano Date and time of intervention:? 01/07/25929 Reason for Referral:?? anxiety and depression Sw completed chart review and acknowledges social work consult. Sw presented to bedside and introduced self to patient and her , Matti. Sw explained reason for sw involvement and completed psychosocial assessment. Informant:?? Medical record, patient and her . History:? Patient is 34 year old, female who is 4, para 2- now 3 following labor and delivery of . 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 Patient states that ever since she was in high school she felt called to be a surrogate, however always wanted to have her own children first. Patient states that she and her , Matti have known each other since they were in high school together, but started seeing each other 8 years ago, and have now been for 6. Patient and Matti have two children together, Helga (6) and [place]ersham (5). Matti has a son, Ollie from a prior relationship who is 10 years old. Mackenzie states that when they decided they were done having children of their own she started the process of looking into surrogacy and found the agency, [facility] that is out of [place]. Through the agency she was introduced to Yevgeniy and Carrie who were using [facility] to find a surrogate to help them start a family of their own. - Patient states that this did feel different from her prior two. She reports that she was sicker than normal and did not feel as attached to the baby. MOB states that she felt close to Carrie and Yevgeniy throughout the entirety of the whole process- which initially began over a year ago when they had a miscarriage in November 2023. Patient states that Carrie and Yevgeniy have expressed a desire to continue to have a relationship with her and her family and she is open to this. Mackenzie states that she has been diagnosed with anxiety and depression, and did experience depression in the past. Patient states that she thinks her was in relation to her pregnancies being extremely close together, and navigating have two children extremely close in age. Patient states that she feels more equipped to handle those types of emotions this time, however she does not anticipate experiencing any symptoms. MOB states that she did not feel bonded to the baby as she did with her two natural children. MOB states that she actual is happy to not be any more, and is not going to miss being exhausted caring for a . MOB and Matti state that they have decided to only do surrogacy this one time. MOB states that she feels fulfilled being able to help Carrie and Yevgeniy start a family of their own. Patient and Matti have profitable jobs outside of the home. 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 Matti is a [employer] Solutions[employer]ing officer in [employer]. Patient states that Matti is her biggest support person and she knows that if anything should happen regarding depression or feeling down or anxious he would be able to recognize that and would know how to help and support her. Matti states that he is proud of patient for fulfilling something that she always felt called to do, and he is happy to feel part of someone's happiness and an extension of their family. Patient states that she and her family enjoy spending time outside camping throughout the year, which they did not get to do much over the summer due to her , so she is looking forward to doing that this fall. - Patient and Matti deny substance use or alcohol use. They also deny family history of addiction or significant mental health history. Parents were encouraged to continue to use healthy and safe coping mechanisms. Sw encouraged LB to also consider talking to a mental health professional if she ever felt as though she was struggling with some symptoms or feeling as though something is missing due to not caring for a baby that she physically carried. Patient states that she does not believe she will feel that way, she feels as though she has mentally prepared herself for that. Patient states that she does have mental health supports available to her through her employer if she ever felt that that was necessary. Assessment:? Patient and her were welcoming of sw. Patient was observed to be sitting comfortably in bed and Matti was sitting comfortably in reclining chair, both waiting to be discharged. Patient was open and talkative regarding her decision to be a surrogate and her experience with the process. Patient was observed to be in a positive place mentally and has a lot of supports in place. Patient states that she is thankful that Carrie and Yevgeniy want to continue to have an open relationship with them moving forward, however sw also got the feeling that if they decided that no longer suited their family she would be okay with that too. Patient and Matti were talkative regarding their children and how they are understanding of her being a surrogate and will not be coming home with a baby, even though she was . Patient was receptive to support and encouragement from sw. No further needs requested or indicated Juaquin Wells, DIRECTOR OF [employer], [employer]
--- NOTE | 2025-01-11 15:03 | NURSING ---
F/up phone call performed-- pt. reports things are going well overall, except for her tailbone. Lochia is minimal, just spotting. Pt. reports that her provider believes pt. fractured her tailbone in delivery and that this would take 8-12 weeks for healing. Pt. states provider offered x-rays for peace of mind, but for pt to follow up at 1 week and 4 weeks. Encouragement and support given-- otherwise pt. doing well and denies questions or concerns at this time.
== END 2025-01-07 11:10 | disposition home or self-care (01) | DRG 807 ==
LOC: WPOUT 01:17 → WP 01:17
PROVIDERS: Admitting Provider Obstetrics & Gynecology; PCP Student in an Organized Health Care Education/Training Program; Referring Provider Obstetrics & Gynecology; Visit Provider Obstetrics & Gynecology
DX: O36.63X0 Maternal care for excessive fetal growth, third trimester, not applicable or unspecified (principal); Z37.0 Single live birth; N96 Recurrent pregnancy loss; O69.81X0 Labor and delivery complicated by cord around neck, without compression, not applicable or unspecified; Z79.82 Long term (current) use of aspirin; Z3A.38 38 weeks gestation of pregnancy; Z33.3 Pregnant state, gestational carrier; O99.893 Other specified diseases and conditions complicating puerperium; Z86.32 Personal history of gestational diabetes
CPT/HCPCS: 59025; 59050; 82962; 84112; 85025; 86780; 86850; 86900; 86901; 99221; G0378; J2405